=== PATIENT | female | born 1980 | race Caucasian/White ===

== ENCOUNTER 2017-05-03 11:32 | Emergency (ER) | payer MEDICAID, SELFPAY ==
[2017-05-03 11:33] VITALS: BP 118/75; PULSE 75; RESP 16; TEMP 36.8; O2SAT 98; BMI 30.2
--- NOTE | 2017-05-03 11:46 | RAD_ITS ---
STUDY: X-RAY - RIGHT FOOT CLINICAL: Female, 36 years old. Blunt trauma to the metatarsals. TECHNIQUE: view(s) of the foot. COMPARISON: None. FINDINGS: Normal talus, calcaneus, and tarsal bones. The joint spaces are within normal limits. Normal metatarsi. Normal metatarsophalangeal joint of the great toe. There is a bipartite tibial sesamoid. Normal interphalangeal joint of the great toe. Normal phalanges of the great toe. Normal second through fifth metatarsophalangeal joints. Normal interphalangeal joints and phalanges of the lesser toes. The soft tissue structures are unremarkable. There is no demonstrated fracture. RAD/Foot min 3 Views IMPRESSION: No radiographic evidence of acute fracture. If there is still clinical concern for acute fracture, follow-up radiographs in 7-10 days maybe helpful in evaluating a healing radiographically occult fracture. Electronically Signed: Galilea Cervantes MD at 12:56 EST , Service support ,
--- NOTE | 2017-05-03 13:10 | ED.DCSUM_ITS ---
- ER Visit Summary Date of Service: 05/03/17 Chief Complaint: [Injury right foot] History of Present Illness: The patient is a 36 F [presents to the emergency department with an injury to her right foot that occurred last evening. Patient states that a large glass coffee table fell over onto her right foot. Patient had a hard time bearing weight secondary to pain.] Physical Examination: [Foot-patient has some soft tissue swelling over the proximal dorsal aspect of the foot. There is some faint erythema and soft tissue swelling. No obvious deformity. Patient is neurovascular intact distally. Patient has no pain about the ankle.] Test Results: [Rays of the right foot showed no fractures] Emergency Department Course and Treatment: Given an Mynor wrap and crutches.] Treatment Plan: [Advised to ice and elevate the extremity. Patient to use ibuprofen for discomfort.] Disposition: [Discharge to home in stable condition. Patient advised to follow- up with her primary care physician in 7-10 days as if she continues to have significant discomfort may require repeat x-ray at that time.] Impression: [Contusion right foot] This note was generated with [employer] dictation software. It may contain incorrect words, spelling, and punctuation that were not noted in review of the chart prior to signing ED Disposition - Plan for ED Patient: Chief Complaint: Lower Extremity Injury Referrals: Surendra Chavarria DO [Primary Care Provider] -
--- NOTE | 2017-05-03 13:10 | ED.DEP ---
ED Disposition - Plan for ED Patient: Chief Complaint: Lower Extremity Injury Instructions: ED Contusion Foot Referrals: Surendra Chavarria DO [Primary Care Provider] - 5-7 Days
[2017-05-03 13:29] VITALS: BP 126/75; PULSE 78; RESP 18; O2SAT 98
== END 2017-05-03 13:30 | disposition home or self-care (01) ==
PROVIDERS: Emergency Provider Emergency Medicine; Family Provider Preventive Medicine Occupational Medicine; PCP Preventive Medicine Occupational Medicine
DX: S90.31XA Contusion of right foot, initial encounter (principal); W20.8XXA Other cause of strike by thrown, projected or falling object, initial encounter; Y93.9 Activity, unspecified; Y92.89 Other specified places as the place of occurrence of the external cause; Y99.9 Unspecified external cause status
CPT/HCPCS: 73630; 99283

== ENCOUNTER 2017-06-18 20:43 | Emergency (ER) | payer MEDICAID, SELFPAY ==
[2017-06-18 20:44] VITALS: BP 124/74; PULSE 97; RESP 14; TEMP 37.3; O2SAT 97; BMI 30.9
[2017-06-18] MEDS: predniSONE 20 MG Tablet 60 MG PO (21:12)
[2017-06-18 21:15] VITALS: PULSE 100; RESP 16
[2017-06-18] MEDS: Ipratropium/Albuterol Sulfate 3 ML AMPUL.NEB INHALATION (21:15)
--- NOTE | 2017-06-18 21:28 | RAD_ITS ---
STUDY: X-RAY CHEST REASON FOR EXAM: Female, 36 years old. Cough and congestion. TECHNIQUE: 2 views COMPARISON: Prior chest radiograph of February 20, 2017. FINDINGS: The lungs are clear and expanded. There is no demonstrated pleural abnormality. Normal size heart. Normal mediastinum and ally. Normal visualized pulmonary arteries. Normal visualized aortic arch and descending thoracic aorta. Normal visualized thoracic spine. Normal visualized ribs, clavicles, and shoulders. There is no demonstrated abnormality of the visualized soft tissue structures of the upper abdomen. RAD/Chest PA and Lateral IMPRESSION: Normal x-ray examination of the chest. Electronically Signed: Linda Lozano MD at 22:04 EDT , Service support ,
--- NOTE | 2017-06-18 21:42 | ED.DCSUM_ITS ---
- ER Visit Summary Date of Service: 06/18/17 Chief Complaint: Cough and runny nose History of Present Illness: The patient is a 36 F who underwent an EGD in [place] yesterday. She states that everything went fine. Today she woke up she had runny nose nasal congestion ear congestion and a cough which she states comes from her chest. She states she has a albuterol inhaler that she uses for asthma. No fevers. She states that it was not reported to her that she may have aspirated. The rhinorrhea is clear. Physical Examination: Afebrile vital signs are stable Gen: Well-nourished well-developed Head: Normocephalic atraumatic Eyes: Perrl EOMI ENT: TMs clear turbinate edema and clear rhinorrhea moist mucous membranes Neck: Supple no lymphadenopathy no JVD nontender CVS: Regular rate rhythm no murmurs normal S1-S2 Respiratory: No distress there is expiratory wheezing bilaterally chest nontender Abdomen: Soft nontender nondistended normal bowel sounds no masses Back: Nontender Extremity: Nontender no edema Skin: Normal color no rash Neuro: alert orientated ?3 CN II-XII intact normal strength sensation reflexes gait cerebellar Psych: Normal affect normal mood Test Results: Chest x-ray is negative for infiltrate Emergency Department Course and Treatment: Patient received a DuoNeb, prednisone. Patient will be discharged home with a burst of prednisone. She is to follow-up with her doctor. She is to use her inhaler. Return if worsening. I believe this to be a viral URI that has set off her asthma. I do not see any evidence of aspiration at this time. Impression: 1. Viral URI 2. Exacerbation of asthma This note was generated with [employer] dictation software. It may contain incorrect words, spelling, and punctuation that were not noted in review of the chart prior to signing ED Disposition - Plan for ED Patient: Disposition: Home or Assisted Living Chief Complaint: Cold Sx Instructions: ED Upper Resp Infec No Abx Tx, ED Wheezing Prescriptions: Prednisone [Deltasone] 60 mg PO DAILY #15 tab Referrals: Surendra Chavarria DO [Primary Care Provider] - 1 Week if not improving
[2017-06-18 22:14] VITALS: RESP 16
== END 2017-06-18 22:14 | disposition home or self-care (01) ==
LOC: ED 21:44
PROVIDERS: Emergency Provider Emergency Medicine; Family Provider Preventive Medicine Occupational Medicine; PCP Preventive Medicine Occupational Medicine
DX: J06.9 Acute upper respiratory infection, unspecified (principal); J45.901 Unspecified asthma with (acute) exacerbation; K21.9 Gastro-esophageal reflux disease without esophagitis
CPT/HCPCS: 71046; 94640; 99283

== ENCOUNTER 2018-04-13 15:27 | Emergency (ER) | payer OTHER, MEDICAID, SELFPAY ==
[2018-04-13 15:28] VITALS: BP 137/79; PULSE 102; RESP 16; TEMP 36.7; O2SAT 96; BMI 32.2
[2018-04-13] MEDS: Smz/Tmp Ds Tablet 1 TABLET PO (15:44)
[2018-04-13] MEDS: Naproxen 500 MG Tablet PO (15:44)
--- NOTE | 2018-04-13 15:44 | ED.DCSUM_ITS ---
- ER Visit Summary Date of Service: 04/13/18 Chief Complaint: Abscess right axilla History of Present Illness: The patient is a 37 F with an abscess to the right axilla for the past 2 days. No spontaneous drainage. Patient does state she had multiple abscesses to the right axilla approximately 2 months ago. She went to the [facility]. Sample confirmed MRSA and she was treated with Bactrim. I&D was not performed at that time. Past history significant for GERD. She does have noted allergies to penicillin and clindamycin. Physical Examination: Vital signs unremarkable. Patient sitting upright in bed no acute distress. Head neck examination unremarkable. Heart is regular rate and rhythm. Lung sounds are clear. Abdomen is soft nontender. Skin examination was a 2 x 4 similar abscess to the right axilla. No spontaneous drainage. Test Results: [] Emergency Department Course and Treatment: Patient is given Naprosyn and Bactrim. 1 cc lidocaine was infused locally to the abscess. A stab wound was made with a #11 blade. There is return of purulent material. Loculations are broken up with curved hemostats. Wound is washed and cleansed and dressing is applied. Wound care is discussed. Should be treated with a course of Bactrim. She will be referred to Dr. Ochoa if she keeps getting recurrent abscesses. Treatment Plan: [] Disposition: Discharge Impression: Right axillary abscess status post I&D This note was generated with [employer] dictation software. It may contain incorrect words, spelling, and punctuation that were not noted in review of the chart prior to signing ED Disposition - Plan for ED Patient: Chief Complaint: Abscess Referrals: Surendra Chavarria DO [Primary Care Provider] -
--- NOTE | 2018-04-13 16:03 | ED.DEP ---
ED Disposition - Plan for ED Patient: Disposition: Home or Assisted Living Chief Complaint: Abscess Instructions: ED Abscess IandD Prescriptions: Naproxen [Naprosyn] 500 mg PO BID PRN PRN #20 tablet PRN Reason: Pain Smz/Tmp Ds [Bactrim Ds] 1 tablet PO BID #20 tablet Referrals: Surendra Chavarria DO [Primary Care Provider] - 1-2 Weeks George Ochoa MD [STAFF PHYSICIAN] - As Needed
[2018-04-13 16:09] VITALS: RESP 12
--- OUTSIDE RECORDS SUMMARY | 2018-06-16 04:08 | XMS RPT_ITS ---
:1980 Author Organization OH[facility] Care Team Providers Name Role Phone AFUA ANÍBALLUCY CARTER Attending Unavailable MICHAEL CHAVARRIA Referring Unavailable KASSANDRA PARKS (SINGLE STROKE PREFORMER) Attending Unavailable KASSANDRA PARKS (SINGLE STROKE PREFORMER) Referring Unavailable KASSANDRA PARKS (SINGLE STROKE PREFORMER) Attending Unavailable KASSANDRA PARKS (SINGLE STROKE PREFORMER) Referring Unavailable AFUA, ANÍBAL NABI Attending Unavailable AFUA, ANÍBAL NABI Referring Unavailable Michael Chavarria Primary Care Unavailable Jaclyn Guerrero Attending Unavailable Michael Chavarria Primary Care Unavailable Joaquín Sousa Attending Unavailable Michael Chavarria Primary Care Unavailable Chaz Coats Attending Unavailable ASSESSMENT, HEALTH RISK Attending Unavailable Michael Chavarria Primary Care Unavailable PROVIDER, ED PHYSICIAN Attending Unavailable Michael Chavarria Primary Care Unavailable ASSESSMENT, HEALTH RISK Attending Unavailable Michael Chavarria Primary Care Unavailable PROBLEMS PROBLEMS DATE TYPE CONDITION / CODE ATTENDING STATUS SOURCE 06/17/2017 Active Gastro-esophageal AFUA, ANÍBAL Active [facility] reflux disease NABI [place] without Repository esophagitis / K21.9(ICD-10) 06/12/2017 Active Nonscarring hair NA Active [facility] loss, unspecified [place] / L65.9(ICD-10) Repository 06/12/2017 Active Irregular NA Active [facility] menstruation, [place] unspecified / Repository N92.6(ICD-10) 06/05/2017 Active Pelvic and NA Active [facility] perineal pain / [place] R10.2(ICD-10) Repository PROCEDURES PROCEDURES No Procedure Records FoundRESULTS RESULTS EMERGENCY DEPARTMENT Observed: 04/13/2018 Status: F Source: [place] SUMMARY 10:11 PM [facility] [place] [facility] Medical Records Department [address] [place] [id number] Emergency Department Summary 04/13/18 1543 MR#: [id number] Acct: [id number] Name: CARMELITAJACLYN TERRA Rep #: [id number] : 1980 37 From: Jaclyn Guerrero MD PCP: Michael Chavarria DO Status: DEP ER - ER Visit Summary Date of Service: 04/13/18 Chief Complaint: Abscess right axilla History of Present Illness: The patient is a 37 F with an abscess to the right axilla for the past 2 days. No spontaneous drainage. Patient does state she had multiple abscesses to the right axilla approximately 2 months ago. She went to the [facility]. Sample confirmed MRSA and she was treated with Bactrim. I AND D was not performed at that time. Past history significant for GERD. She does have noted allergies to penicillin and clindamycin. Physical Examination: Vital signs unremarkable. Patient sitting upright in bed no acute distress. Head neck examination unremarkable. Heart is regular rate and rhythm. Lung sounds are clear. Abdomen is soft nontender. Skin examination was a 2 x 4 similar abscess to the right axilla. No spontaneous drainage. Test Results: [] Emergency Department Course and Treatment: Patient is given Naprosyn and Bactrim. 1 cc lidocaine was infused locally to the abscess. A stab wound was made with a #11 blade. There is return of purulent material. Loculations are broken up with curved hemostats. Wound is washed and cleansed and dressing is applied. Wound care is discussed. Should be treated with a course of Bactrim. She will be referred to Dr. Ochoa if she keeps getting recurrent abscesses. Treatment Plan: [] Disposition: Discharge Impression: Right axillary abscess status post I AND D This note was generated with Carlypso dictation software. It may contain incorrect words, spelling, and punctuation that were not noted in review of the chart prior to signing ED Disposition - Plan for ED Patient: Chief Complaint: Abscess Referrals: Michael Chavarria DO [Primary Care Provider] - What to do if you have Problems For any increased pain, shortness of breath, bleeding, nausea or vomiting, chest pain, or any unexpected problems, contact your Primary Care Provider. Call [facility] ([phone]) or report to the closest Emergency Room. Call 911 if necessary. 04/13/18 1727 <Electronically signed by Jaclyn Guerrero MD> Date Jaclyn Guerrero MD Cosigner Signature (If Indicated): Date CC: Michael Chavarria DO DISCHARGE INSTRUCTION Observed: 04/13/2018 Status: F Source: [place] 4:04 PM [facility] [place] [facility] Medical Records Department [address] [place] [address] Discharge Instruction 04/13/18 1603 MR#: [id number] Acct: [id number] Name: JACLYN THOMPSON Rep #: [id number] : 1980 37 From: Jaclyn Guerrero MD PCP: Michael Chavarria DO Status: PRE ER ED Disposition - Plan for ED Patient: Disposition: Home or Assisted Living Chief Complaint: Abscess Instructions: ED Abscess IandD Prescriptions: Naproxen [Naprosyn] 500 mg PO BID PRN PRN #20 tablet PRN Reason: Pain Smz/Tmp Ds [Bactrim Ds] 1 tablet PO BID #20 tablet Referrals: Michael Chavarria DO [Primary Care Provider] - 1-2 Weeks George Ochoa MD [STAFF PHYSICIAN] - As Needed What to do if you have Problems For any increased pain, shortness of breath, bleeding, nausea or vomiting, chest pain, or any unexpected problems, contact your Primary Care Provider. Call [facility] ([phone]) or report to the closest Emergency Room. Call 911 if necessary. 04/13/18 1604 <Electronically signed by Jaclyn Guerrero MD> Date Jaclyn Guerrero MD Cosigner Signature (If Indicated): Date CC: Michael Chavarria DO WOUND Observed: 02/10/2018 Status: F Source: [place] CULTURE/STAIN 8:00 PM [facility] REPOSITORY Sp. Request/Comment: - Swab Smear Result - No organisms seen Few Polymorphonuclear leukocytes Few Mononuclear cells Culture Result - Moderate Methicillin resistant Staphylococcus aureus --> ABNORMAL ALERT ORGANISM: Methicillin resistant Staphylococcus aureus METHOD: Minimum inhibitory concentration(Vitek) Antibiotic Interp SRINIVAS Status Erythromycin RESISTANT >=8 F Clindamycin SUSCEPTIBLE 0.25 F Testing for inducible clindamycin resistance was performed. Tetracycline SUSCEPTIBLE <=1 F Vancomycin SUSCEPTIBLE 1 F Oxacillin RESISTANT >=4 F Oxacillin resistant staphylococci are resistant to all beta lactam antibiotics (except new cephalosporins with anti MRSA activity). Trimeth sulfameth SUSCEPTIBLE <=10 F Gentamicin SUSCEPTIBLE <=0.5 F Rifampin SUSCEPTIBLE <=0.5 F Rifampin should not be used alone for antimicrobial therapy. Daptomycin SUSCEPTIBLE 0.5 F Linezolid SUSCEPTIBLE 2 F Doxycycline SUSCEPTIBLE <=0.5 F Performed By: #### WCUL #### [facility] [address] [place], [place] [address] PROGRESS Observed: 02/10/2018 Status: COMPLETED Source: [place] 7:15 PM [facility] REPOSITORY HNO ID: [id number] Author: Todd (Job Placement Counselor) Service: (none) Author Type: Nurse Practitioner Type: Progress Notes Filed: 02/10/2018 8:18 PM Note Text: Subjective HPI Jaclyn Thompson is a 37 year old female who presents today for CC of right axillary abscess, has drained at few spots. This started 1 week ago. Has tried opening lesion with tweezers. Symptoms are worsened by nothing known. No hx of this in past. 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 .Patient presents with: Derm Problem: right axillary abscess, red and painful x 1 week PAST MEDICAL HISTORY Diagnosis Date - Abdominal pain, epigastric - Acute gastritis without mention of hemorrhage - Anemia - Anxiety disorder in conditions classified elsewhere - Chronic cholecystitis - FRACTURE AGE 10 WRIST,FALL ON ICE - GERD (gastroesophageal reflux disease) - Helicobacter pylori (H. 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 ketotifen fumarate (ZADITOR) 0.025 % (0.035 %) ophthalmic solution pantoprazole DR (PROTONIX) 40 mg tablet Take 1 tablet by mouth daily before breakfast. Take on empty stomach, 1/2 hr before meal. citalopram (CELEXA) 40 mg tablet Take 1 tablet by mouth once daily. albuterol HFA (VENTOLIN HFA) 90 mcg/actuation inhaler Inhale 2 Puffs as instructed every 4 hours as needed. fluticasone (FLOVENT HFA) 110 mcg/actuation inhaler Inhale 1 Puff as instructed twice daily. LORazepam (ATIVAN) 0.5 mg tab Take 1 tablet by mouth three times daily as needed (anxiety). EPINEPHrine (EPIPEN) 0.3 mg/0.3 mL (1:1,000) atIn Inject intramuscularly. use as directed for allergic reaction. Seek emergent medical care immediately after use. HYDROcodone-acetaminophen (NORCO) 5-325 mg per tablet HYDROcodone-Acetaminophen (HYCET) 7.5-325 mg/15 mL oral liquid dicyclomine (BENTYL) 10 mg capsule Take 1 capsule by mouth before meals and at bedtime. FAMILY HISTORY Problem Relation Age of Onset - Arthritis Father - Hypertension Father - Lipids Father - Arthritis Maternal Grandmother - Diabetes Maternal Grandmother - Diabetes Maternal Grandfather - Heart Paternal Grandmother - Psychiatry Paternal Grandfather - Diabetes Paternal Grandfather - Prostate Cancer Paternal Grandfather - Heart Paternal Uncle - other (ADD) Daughter - other (ADHD) Son Social History Substance Use Topics - Smoking status: Former Smoker Quit date: 12/17/2005 - Smokeless tobacco: Never Used Comment: quit one year ago - Alcohol use Yes Comment: Seldom, NOT DURING Review of Systems Constitutional: Negative for chills and fever. Skin: Negative for itching and rash. Objective Blood pressure 120/72, pulse 70, temperature 36.8 ?C (98.3 ?F), temperature source Tympanic, resp. rate 16, weight 89.8 kg (198 lb). Procedure: Incision and Drainage. Risks and benefits of the procedure were discussed including pain, bleeding, and failure to successfully drain the abscess. The patient's father understands these risks and wishes to proceed. Site cleansed with isopropyl alcohol pads/iodine No anesthesia used. #11 blade used to make stab incision. small amount of bloody/creamy drainage expressed from the wound. Hemostasis with short pressure applied. Dressed with adhesive bandage. Physical Exam Constitutional: She is oriented to person, place, and time and well-developed, well-nourished, and in no distress. Non-toxic appearance. She does not have a sickly appearance. No distress. HENT: Head: Normocephalic and atraumatic. Pulmonary/Chest: Effort normal. No accessory muscle usage. No respiratory distress. Neurological: She is alert and oriented to person, place, and time. Skin: She is not diaphoretic. ASSESSMENT/PLAN: 1. Axillary abscess - ICD9: 682.3, ICD10: L02.419 -carbuncle vs hydradenitis suppurativa - Begin treatment with doxycycline - No lymphangetic streaking, this was defined for patient to watch for and to seek medical care immediately if appears - Follow up for recheck in three days with pcp for recheck -keep I and D area clean and covered - WOUND CULTURE AND GRAM STAIN - DOXYCYCLINE MONOHYDRATE 100 MG TABLET Prescription instructions reviewed with patient as applicable. Patient advised if symptoms do not improve or if symptoms worsen sooner, to contact the office for further evaluation by their primary care physician. Potential red flag symptoms discussed with the patient. Reviewed appropriate action plan to take if red flag symptoms occur. Patient agreeable to treatment plan. Todd Alvarez APRN.SARKIS CNOV Observed: 02/10/2018 Status: COMPLETED Source: [place] 7:15 PM [facility] REPOSITORY Office Visit (WSTR) JACLYN THOMPSON ([id number]) 1980 F Date Time Provider Department 02/10/18 7:15 PM TODD ALVAREZ (SARKIS) [facility] During your visit today, we recorded the following information about you: Temperature Pulse Respiration Blood pressure 98.3 degrees 70/minute 16/minute 120/72 Weight 89.8 kg Todd AlvarezJESSE.SINGLE STROKE PREFORMER 02/10/2018 8:18 PM Signed Subjective HPI Jaclyn Thompson is a 37 year old female who presents today for CC of right axillary abscess, has drained at few spots. This started 1 week ago. Has tried opening lesion with tweezers. Symptoms are worsened by nothing known. No hx of this in past. 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 .Patient presents with: Derm Problem: right axillary abscess, red and painful x 1 week PAST MEDICAL HISTORY Diagnosis Date - Abdominal pain, epigastric - Acute gastritis without mention of hemorrhage - Anemia - Anxiety disorder in conditions classified elsewhere - Chronic cholecystitis - FRACTURE AGE 10 WRIST,FALL ON ICE - GERD (gastroesophageal reflux disease) - Helicobacter pylori (H. 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 ketotifen fumarate (ZADITOR) 0.025 % (0.035 %) ophthalmic solution pantoprazole DR (PROTONIX) 40 mg tablet Take 1 tablet by mouth daily before breakfast. Take on empty stomach, 1/2 hr before meal. citalopram (CELEXA) 40 mg tablet Take 1 tablet by mouth once daily. albuterol HFA (VENTOLIN HFA) 90 mcg/actuation inhaler Inhale 2 Puffs as instructed every 4 hours as needed. fluticasone (FLOVENT HFA) 110 mcg/actuation inhaler Inhale 1 Puff as instructed twice daily. LORazepam (ATIVAN) 0.5 mg tab Take 1 tablet by mouth three times daily as needed (anxiety). EPINEPHrine (EPIPEN) 0.3 mg/0.3 mL (1:1,000) atIn Inject intramuscularly. use as directed for allergic reaction. Seek emergent medical care immediately after use. HYDROcodone-acetaminophen (NORCO) 5-325 mg per tablet HYDROcodone-Acetaminophen (HYCET) 7.5-325 mg/15 mL oral liquid dicyclomine (BENTYL) 10 mg capsule Take 1 capsule by mouth before meals and at bedtime. FAMILY HISTORY Problem Relation Age of Onset - Arthritis Father - Hypertension Father - Lipids Father - Arthritis Maternal Grandmother - Diabetes Maternal Grandmother - Diabetes Maternal Grandfather - Heart Paternal Grandmother - Psychiatry Paternal Grandfather - Diabetes Paternal Grandfather - Prostate Cancer Paternal Grandfather - Heart Paternal Uncle - other (ADD) Daughter - other (ADHD) Son Social History Substance Use Topics - Smoking status: Former Smoker Quit date: 12/17/2005 - Smokeless tobacco: Never Used Comment: quit one year ago - Alcohol use Yes Comment: Seldom, NOT DURING Review of Systems Constitutional: Negative for chills and fever. Skin: Negative for itching and rash. Objective Blood pressure 120/72, pulse 70, temperature 36.8 ?C (98.3 ?F), temperature source Tympanic, resp. rate 16, weight 89.8 kg (198 lb). Procedure: Incision and Drainage. Risks and benefits of the procedure were discussed including pain, bleeding, and failure to successfully drain the abscess. The patient's father understands these risks and wishes to proceed. Site cleansed with isopropyl alcohol pads/iodine No anesthesia used. #11 blade used to make stab incision. small amount of bloody/creamy drainage expressed from the wound. Hemostasis with short pressure applied. Dressed with adhesive bandage. Physical Exam Constitutional: She is oriented to person, place, and time and well-developed, well-nourished, and in no distress. Non-toxic appearance. She does not have a sickly appearance. No distress. HENT: Head: Normocephalic and atraumatic. Pulmonary/Chest: Effort normal. No accessory muscle usage. No respiratory distress. Neurological: She is alert and oriented to person, place, and time. Skin: She is not diaphoretic. ASSESSMENT/PLAN: 1. Axillary abscess - ICD9: 682.3, ICD10: L02.419 -carbuncle vs hydradenitis suppurativa - Begin treatment with doxycycline - No lymphangetic streaking, this was defined for patient to watch for and to seek medical care immediately if appears - Follow up for recheck in three days with pcp for recheck -keep I and D area clean and covered - WOUND CULTURE AND GRAM STAIN - DOXYCYCLINE MONOHYDRATE 100 MG TABLET Prescription instructions reviewed with patient as applicable. Patient advised if symptoms do not improve or if symptoms worsen sooner, to contact the office for further evaluation by their primary care physician. Potential red flag symptoms discussed with the patient. Reviewed appropriate action plan to take if red flag symptoms occur. Patient agreeable to treatment plan. JANICE Wylie APRN.CNP 02/10/2018 7:40 PM Signed ASSESSMENT/PLAN: 1. Axillary abscess - ICD9: 682.3, ICD10: L02.419 - Begin treatment with doxycycline - No lymphangetic streaking, this was defined for patient to watch for and to seek medical care immediately if appears - Follow up for recheck in three days with pcp for recheck - WOUND CULTURE AND GRAM STAIN - DOXYCYCLINE MONOHYDRATE 100 MG TABLET Referring Provider: SELF [200] Allergies As of Date: 02/10/2018 Noted Allergy Reaction CLINDOMYCIN (CLINDAMYCIN) 07/10/2009 12 - Shortness of Breath PENICILLINS 11/30/2004 12 - Shortness of Breath Date Reviewed: 02/10/2018 Reviewed by: Todd (Sarkis) - Fully Assessed Reason for Visit: Derm Problem [33] Cmt: right axillary abscess, red and painful x 1 week Primary Visit Diagnosis:Axillary abscess [L02.419] Order(s):WOUND CULTURE AND GRAM STAIN [SQWCUL] Order #: [id number] doxycycline monohydrate 100 mg tabletTake 1 tablet by mouth twice daily for 10 days.Disp: 20 tabletRfl: 0 Prescriptions as of 02/10/2018 Sig: DROSPIRENONE 3 MG-ETHINYL EST* Take 1 tablet by mouth once d* KETOTIFEN 0.025 % (0.035 %) E* PANTOPRAZOLE 40 MG TABLET,DEL* Take 1 tablet by mouth daily * CITALOPRAM 40 MG TABLET Take 1 tablet by mouth once d* ALBUTEROL SULFATE HFA 90 MCG/* Inhale 2 Puffs as instructed * FLUTICASONE 110 MCG/ACTUATION* Inhale 1 Puff as instructed t* LORAZEPAM 0.5 MG TABLET Take 1 tablet by mouth three * EPINEPHRINE 0.3 MG/0.3 ML INJ* Inject intramuscularly. use * DOXYCYCLINE MONOHYDRATE 100 M* Take 1 tablet by mouth twice * HYDROCODONE 5 MG-ACETAMINOPHE* HYDROCODONE 7.5 MG-ACETAMINOP* DICYCLOMINE 10 MG CAPSULE Take 1 capsule by mouth befor* Patient not taking: Reported on 02/10/2018 Problem List As Of Date 02/10/2018 Noted Resolved Anxiety state, unspecified [F41.1] INVALID FOR*07/06/2012 More... 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 Depressive disorder, not elsewhere classified [*INVALID FOR* More... Carpal tunnel syndrome on right [G56.01] INVALID FOR*07/12/2011 Panic attacks [F41.0] INVALID FOR* Supervision of other normal [Z34.80] INVALID FOR*04/10/2012 Rh negative status during [O09.899, Z*INVALID FOR*04/10/2012 FHx: cleft palate [Z82.79] INVALID FOR*07/06/2012 More... GBS (group B streptococcus) UTI complicating pr*INVALID FOR*04/10/2012 First trimester bleeding [O20.9] INVALID FOR*07/06/2012 More... Nausea and vomiting in [O21.9] INVALID FOR*07/06/2012 More... History of labor [Z87.51] INVALID FOR*06/12/2017 More... Family history of defects [Z82.79] INVALID FOR* More... Rh negative status during [O09.899, Z*INVALID FOR*06/12/2017 More... Patient requested diagnostic testing [Z01.89] INVALID FOR* More... Varicose veins [I83.90] INVALID FOR* More... History of hemorrhage, currently pre*INVALID FOR*06/12/2017 More... Inguinal hernia [K40.90] INVALID FOR* Other instructions from your clinician: ASSESSMENT/PLAN: 1. Axillary abscess - ICD9: 682.3, ICD10: L02.419 - Begin treatment with doxycycline - No lymphangetic streaking, this was defined for patient to watch for and to seek medical care immediately if appears - Follow up for recheck in three days with pcp for recheck - WOUND CULTURE AND GRAM STAIN - DOXYCYCLINE MONOHYDRATE 100 MG TABLET Prescriptions ordered this encounter Disp Refills Start End DOXYCYCLINE MONOHYDRATE 100 MG TABLET 20 t* 0 02/10/2018 02/20/2018 Cmt: May transfer to [facility] if less expensive. Route: ORAL Sig: Take 1 tablet by mouth twice daily for 10 days. Encounter Status:Closed by TODD ALVAREZ CNP on 02/10/18 [employer], EMPLOYEE Collected: 11/27/2017 Status: F Source: [place] 11:19 AM [facility] [place] TYPE CODE TESTS RESULT OUT OF RANGE REFERENCE UNITS LAB L100.1000 4.4-11.0 K/mm3 Normal WBC 7.1 LAB L100.1200 4.2-5.4 M/mm3 Normal RBC 4.33 LAB L100.1300 12.0-15.0 g/dl Normal HGB 12.7 LAB L100.1400 37-47 % Normal HCT 39.0 LAB L100.1500 81-99 fL Normal MCV 90.1 LAB L100.1600 27.0-32.0 pg Normal MCH 29.3 LAB L100.1700 32-36 g/gl Normal MCHC 32.6 LAB L100.1810 11.6-14.6 % Normal RDW CV 12.6 LAB L100.1820 35.1-43.9 fl Normal RDW SD 41.3 LAB L100.1900 150-450 K/mm3 Normal PLT 316 LAB L100.2000 6.2-12.0 fl Normal MPV 9.0 LAB L100.2110 47-70 % Normal NEUT% 56.1 LAB L100.2210 19-41 % Normal LY% 29.8 LAB L100.2310 0-10 % Normal MONO% 6.9 LAB L100.2410 0-5 % High EO% 6.5 LAB L100.2510 0-1 % Normal BASO% 0.6 LAB L100.2620 2.0-7.7 X10 3/uL Normal Absolute Neut 4.0 LAB L100.2720 0.83-4.51 X10 3/ul Normal Absolute Lymph 2.11 Performed By: #### L100.0200 #### [facility] [address] [place], [place], [id number] URINALYSIS, EMPLOYEE Collected: 11/27/2017 Status: F Source: [place] 11:19 AM [facility] [place] TYPE CODE TESTS RESULT OUT OF RANGE REFERENCE UNITS LAB L400.3000 Yellow COLOR Normal Yellow LAB L400.3050 Clear Normal CLARITY Clear LAB L400.3200 Normal mg/dl Normal GLUCOSE, UR Normal LAB L400.3300 Negative mg/dL Normal BILIRUBIN URINE Negative LAB L400.3400 Negative mg/dl Normal KETONE UR Negative LAB L400.3465 1.002-1.030 Normal SP.GR. DIPSTX 1.020 LAB L400.3550 5.0 - 8.0 pH UR Normal 5.0 LAB L400.3600 Negative mg/dl PROT Normal DIPSTX Negative LAB L400.3700 Normal mg/dl Normal UROBILI Normal LAB L400.3750 Negative Normal NITRITE UR Negative LAB L400.3780 Negative /ul High 10 OCCULT BLOOD-UR LAB L400.3800 Negative /ul LEUK Normal ESTERASE Negative Performed By: #### L400.0100 #### [facility] [address] [place], [address] EMPLOYEE PROFILE Collected: 11/27/2017 Status: F Source: [place] 11:19 AM [facility] [place] TYPE CODE TESTS RESULT OUT OF RANGE REFERENCE UNITS LAB L501.0100 74-106 mg/dL Normal GLU 87 Result Comment: Please note revised GLUCOSE reference range effective 2017. LAB L501.1000 7-18 mg/dL Normal BUN 18 LAB L501.1100 0.55-1.02 mg/dL Normal CREAT,SERUM 0.67 Result Comment: The validity of the calculated GFR AND GFRAA in patients over 70 years has not been determined. Clinical correlation is essential. LAB L501.1110 >60 mL/min Normal EST GFR 106 Result Comment: Non- GFR Calc LAB L501.1115 >60 mL/min Normal EST GFR - AA 128 Result Comment: GFR Calc LAB L501.1300 10-20 RATIO High BUN/CRE 26.7 LAB L501.1400 2.6-6.0 mg/dL Normal URIC 3.7 Result Comment: The drugs N-Acetylcysteine and Metamizole may falsely depress this assay. LAB L501.1500 6.4-8.2 g/dL Normal T PROT 7.3 LAB L501.1800 3.2-5.0 g/dL Normal ALB 3.3 LAB L501.1950 2.2-4.2 g/dL Normal GLOB 4.0 LAB L501.2000 0.9-2.4 RATIO Low A/G 0.8 LAB L501.2200 8.5-10.1 mg/dL Normal CA 8.6 LAB L501.2300 2.5-4.9 mg/dL Normal PHOS 3.1 LAB L501.4100 15-37 U/L Normal AST 18 LAB L501.4305 45-117 U/L Normal ALK P 100 LAB L501.4405 13-56 U/L Normal ALT 31 LAB L501.4600 0.20-1.00 mg/dL Normal T BILI 0.30 LAB L501.4700 0.00-0.30 mg/dL Normal D BILI 0.08 LAB L501.4900 200 mg/dL Normal CHOL 168 Result Comment: <200 mg/dL Desirable 200-240 mg/dL Borderline >240 mg/dL High Risk LAB L501.5000 mg/dL Normal TRIG 36 Result Comment: The drugs N-Acetylcysteine and Metamizole may falsely depress this assay. Serum Triglycerides Reference Interval Normal <150 mg/dL Borderline high 150 - 199 mg/dL High 200 - 499 mg/dL Very High > or = 500 mg/dL LAB L501.5300 136-145 mmol/L Normal NA 143 LAB L501.5600 3.5-5.1 mmol/L Normal K 4.5 LAB L501.5900 98-107 mmol/L High CL 109 LAB L501.6100 21.0-32.0 mmol/L Normal CO2 27.0 LAB L501.6200 5-15 Normal 7 GAP LAB L501.6400 mg/dL Normal HDL 55 Result Comment: The drugs N-Acetylcysteine and Metamizole may falsely depress this assay. Reference Range HDL <40 mg/dL Low HDL Cholesterol HDL >or= 60 mg/dL High HDL Cholesterol LAB L501.6475 Normal CHOL:HDL 3.10 LAB L501.6500 0-130 mg/dL Normal LDL 106 LAB L501.6600 5-40 mg/dL Normal VLDL 7 LAB L504.2610 84-246 U/L Normal LDH 158 Performed By: #### L500.2900 #### [facility] [address] [place], [address] NICOTINE URINE DRUG Collected: 11/27/2017 Status: F Source: [place] SCREEN 11:19 AM [facility] [place] CODE TESTS RESULT OUT OF RANGE REFERENCE UNITS LAB L505.6250 TO BE Normal CONFIRMED Result Comment: CONFIRMATORY TESTING FOR ALL POSITIVE URINE DRUG SCREEN RESULTS WILL ONLY BE SENT OUT UPON PHYSICIAN ORDER. The results of Urine Drug Screen methods provide only preliminary analytical test results. A more specific alternate chemical method must be used in order to obtain a confirmed analytical result. Gas chromatography/mass spectrometery (GC/MS) is the preferred confirmatory method. Clinical consideration and professional judgement should be applied to any drug of abuse test result, particularly when preliminary positive results are used. LAB L505.6270 <200 ng/mL Normal COT DRG Negative SCREEN Result Comment: Cotinine is the first-stage metabolite of Nicotine. Performed By: #### L505.6240 #### [facility] [address] [place], [address] RUBELLA IGG [facility] Collected: 08/14/2017 Status: F Source: [place] EMPLOYEE 9:19 AM [facility] [place] CODE TESTS RESULT OUT OF RANGE REFERENCE UNITS LAB L509.4010 IU/mL Normal Rubella IgG 62.5 Result Comment: Antibody results Interpretation of Immune Status < 5 IU/ml Presumed Non-immune 5 - < 10 IU/ml Equivocal > or = 10 IU/ml Presumed Immune Performed By: #### L509.4010 #### [facility] [address] [place], [place], [id number] [facility] EMP RUBEOLA Collected: 08/14/2017 Status: F Source: [place] TITER 9:19 AM [facility] [place] CODE TESTS RESULT OUT OF RANGE REFERENCE UNITS LAB L3100.3400 Immune >29.9 AU/mL Normal RUBEOLA 38.7 Result Comment: Negative <25.0 Equivocal 25.0 - 29.9 Positive >29.9 Presence of antibodies to Rubeola is presumptive evidence of immunity except when acute infection is suspected. Performed at: - [facility] [id number] Burner Technician: Madhu Carrion PhD, Phone: [phone] Performed By: #### L3100.3400, L3400.1750 #### [facility] (refer to report for specific site) refer to report for address and phone number MUMPS ANTIBODY,IGG Collected: 08/14/2017 Status: F Source: [place] 9:19 AM [facility] [place] TYPE CODE TESTS RESULT OUT OF RANGE REFERENCE UNITS LAB L3400.1750 Immune >10.9 AU/mL Normal MUMPS,IgG 91.0 Result Comment: Negative <9.0 Equivocal 9.0 - 10.9 Positive >10.9 A positive result generally indicates past exposure to Mumps virus or previous vaccination. Performed By: #### L3100.3400, L3400.1750 #### [facility] (refer to report for specific site) refer to report for address and phone number EMERGENCY DEPARTMENT Observed: 06/21/2017 Status: F Source: [place] SUMMARY 4:17 PM [facility] [place] [facility] Medical Records Department [address] [place] [address] Emergency Department Summary 06/18/17 2139 MR#: [id number] Acct: [id number] Name: JACLYN THOMPSON Rep #: [id number] : 1980 36 From: Chaz Coats DO PCP: Michael Chavarria DO Status: DEP ER - ER Visit Summary Date of Service: 06/18/17 Chief Complaint: Cough and runny nose History of Present Illness: The patient is a 36 F who underwent an EGD in [place] yesterday. She states that everything went fine. Today she woke up she had runny nose nasal congestion ear congestion and a cough which she states comes from her chest. She states she has a albuterol inhaler that she uses for asthma. No fevers. She states that it was not reported to her that she may have aspirated. The rhinorrhea is clear. Physical Examination: Afebrile vital signs are stable Gen: Well-nourished well-developed Head: Normocephalic atraumatic Eyes: Perrl EOMI ENT: TMs clear turbinate edema and clear rhinorrhea moist mucous membranes Neck: Supple no lymphadenopathy no JVD nontender CVS: Regular rate rhythm no murmurs normal S1-S2 Respiratory: No distress there is expiratory wheezing bilaterally chest nontender Abdomen: Soft nontender nondistended normal bowel sounds no masses Back: Nontender Extremity: Nontender no edema Skin: Normal color no rash Neuro: alert orientated 3 CN II-XII intact normal strength sensation reflexes gait cerebellar Psych: Normal affect normal mood Test Results: Chest x-ray is negative for infiltrate Emergency Department Course and Treatment: Patient received a DuoNeb, prednisone. Patient will be discharged home with a burst of prednisone. She is to follow-up with her doctor. She is to use her inhaler. Return if worsening. I believe this to be a viral URI that has set off her asthma. I do not see any evidence of aspiration at this time. Impression: 1. Viral URI 2. Exacerbation of asthma This note was generated with AirPRation software. It may contain incorrect words, spelling, and punctuation that were not noted in review of the chart prior to signing ED Disposition - Plan for ED Patient: Disposition: Home or Assisted Living Chief Complaint: Cold Sx Instructions: ED Upper Resp Infec No Abx Tx, ED Wheezing Prescriptions: Prednisone [Deltasone] 60 mg PO DAILY #15 tab Referrals: Michael Chavarria DO [Primary Care Provider] - 1 Week if not improving What to do if you have Problems For any increased pain, shortness of breath, bleeding, nausea or vomiting, chest pain, or any unexpected problems, contact your Primary Care Provider. Call [facility] ([phone]) or report to the closest Emergency Room. Call 911 if necessary. 06/21/17 1617 <Electronically signed by Chaz Coats DO> Date Chaz Coats DO Cosigner Signature (If Indicated): Date CC: Michael Chavarria DO CHEST PA AND LATERAL Observed: 06/18/2017 Status: F Source: [place] 9:06 PM [facility] [place] [facility] Imaging Services [address] [place] [id number] Chest PA and Lateral MR#: [id number] Acct: [id number] Name: JACLYN THOMPSON Rep #: [id number] : 1980 F 36 From: Linda Lozano MD PCP: Michael Chavarria DO Status: REG ER Study: Chest PA and Lateral Date of Exam: 06/18/17 Exam# [id number] Ordering Dr: Chaz Coats DO STUDY: X-RAY CHEST REASON FOR EXAM: Female, 36 years old. Cough and congestion. TECHNIQUE: 2 views COMPARISON: Prior chest radiograph of February 20, 2017. FINDINGS: The lungs are clear and expanded. There is no demonstrated pleural abnormality. Normal size heart. Normal mediastinum and ally. Normal visualized pulmonary arteries. Normal visualized aortic arch and descending thoracic aorta. Normal visualized thoracic spine. Normal visualized ribs, clavicles, and shoulders. There is no demonstrated abnormality of the visualized soft tissue structures of the upper abdomen. RAD/Chest PA and Lateral IMPRESSION: Normal x-ray examination of the chest. Electronically Signed: Linda Lozano MD at 22:04 EDT , Service support , CC: Chaz Coats DO; Michael Chavarria DO Floor Broker: Signed SURGICAL PATHOLOGY Observed: 06/17/2017 Status: F Source: [place] 10:41 AM [facility] [place] REPOSITORY Specimen originated from [facility] Specimen #: [id number] Submitting Physician: ANÍBAL CAAL FINAL DIAGNOSIS 1. Antrum, biopsy (A) - Antral mucosa with no diagnostic alteration. - No morphologic evidence of Helicobacter pylori. 2. Esophagus, lower one-third, biopsy (B) - Squamous mucosa with no diagnostic alteration. - Negative for intraepithelial eosinophils. SR/gp 06/18/2017 Cayetano Romero MD, Ph.D. (Electronic Signature) SPECIMEN SUBMITTED A: ANTRUM, BIOPSY B: LOWER 1/3 OF ESOPHAGUS, BIOPSY CLINICAL DATA GERD A) R/O H. PYLORI GROSS DESCRIPTION A. Received in formalin are three pieces of rocha, soft tissue aggregating to 0.5 x 0.2 x 0.1 cm. Totally submitted in one cassette. B. Received in formalin are two pieces of rocha, soft tissue aggregating to 0.6 x 0.2 x 0.1 cm. Totally submitted in one cassette. Gross examination performed at [facility], [address] [place] [address] 06/18/2017 1:22:20 AM Date of Report: 06/19/2017 Date of Procedure: 06/17/2017 Date of Receipt: 06/17/2017 Submitted by: ANÍBAL CAAL Location: [facility] Diagnostic interpretation performed at [facility], [address] [place] [address]. HISTORY PHYSICAL Observed: 06/17/2017 Status: COMPLETED Source: [place] 10:17 AM [facility] REPOSITORY HNO ID: [id number] Author: Aníbal Caal Service: (none) Author Type: Physician Type: HANDP Filed: 06/17/2017 10:41 AM Note Text: HISTORY AND PHYSICAL Jaclyn Thompson, 36 year old female Current history and physical on file: No Is a new History and Physical required for today's visit? Yes Indication for procedure: GERD PROCEDURE(S) SCHEDULED FOR: EGD (Esophagogastroduodenoscopy) with or without biopsies, removal of polyps or lesions, dilation ( any means), treatment of bleeding ( any means), Barrx treatment of Jonnathan's Esophagus, image tube placement or cryo therapy treatment based on clinical findings. BASELINE BEHAVIOR: Calm BASELINE ORIENTATION: A AND O x3 All medications and allergies reviewed: Yes Skin Assessment: Warm dry muscus membranes pink Airway/Respiratory Assessment: Airway: visualization of the uvula- Yes Mouth: opening greater than 2 fingerbreadths- Yes Neck: full range of motion- Yes Breath sounds clear/equal- Yes Cardiac Assessment: Regular rate and rhythm without murmur Abdominal Assessment: Abdomen soft, non-tender, no masses or organomegaly. Sedation Plan: MAC Additional Comments: None Aníbal Caal MD FSH Collected: 06/12/2017 Status: F Source: [place] 4:17 PM [facility] REPOSITORY TYPE CODE TESTS RESULT OUT OF RANGE REFERENCE UNITS LAB FSH mU/mL FSH 7.1 Result Comment: Reference range: Follicular: 2-11 Midcycle: 10-30 Luteal: 1-9 Post Supriya: 20-100 Performed By: #### FSH, TSH, PROL #### [facility] [address] [id number] TSH Collected: 06/12/2017 Status: F Source: [place] 4:17 PM [facility] REPOSITORY TYPE CODE TESTS RESULT OUT OF RANGE REFERENCE UNITS LAB TSH 0.400-5.500 uU/mL TSH 2.620 Result Comment: If the patient is , TSH reference range varies by gestational period: First Trimester 0.100-2.500 uU/mL Second Trimester 0.200-3.000 uU/mL Third Trimester 0.300-3.000 uU/mL References: 1. Argueta L, Zohaib M, Fredrick SNOWDEN, et al. Management of Thyroid Dysfunction during and : An Endocrine Society Clinical Practice Guideline. J Clin Endocrinol Metab, 2012:97:0940-1754. 2. Fermin OWENS. Overview of thyroid disease in . UpToDate. 2016. Accessed on September 08, 2015. Performed By: #### FSH, TSH, PROL #### [facility] [address] [place], [place] [address] PROLACTIN Collected: 06/12/2017 Status: F Source: [place] 4:17 PM [facility] REPOSITORY TYPE CODE TESTS RESULT OUT OF REFERENCE UNITS RANGE LAB PROL 4.5-26.8 ng/mL Prolactin 11.6 Performed By: #### FSH, TSH, PROL #### [facility] [address] [place], [place] [address] PROGRESS Observed: 06/12/2017 Status: COMPLETED Source: [place] 3:46 PM [facility] REPOSITORY HNO ID: [id number] Author: Kassandra (Job Placement Counselor) JESSE Parks.SARKIS Service: (none) Author Type: Nurse Practitioner Type: Progress Notes Filed: 06/12/2017 4:30 PM Note Text: Jaclyn Thompson is a 36 year old female who presents for problem visit - multiple complaints. HPI: Jaclyn with the following complaints: No menses this months and last 3 menses only lasted 2 days; hair falling out, feels bloated, mood swings, hair on chin, anxiety, depression, lower back pain, weak arms and legs. States Dr Ro had agreed to perform hysterectomy and remove her left ovary in the past due to chronic pain. Concerned that many family members have low thyroid. Would like hormones checked because PCOS has been discussed in the past even though I have 5 kids. Accompanied by three children making it difficult to obtain full HPI and assess due to activity and volume in room. PAST MEDICAL HISTORY Diagnosis Date - Abdominal pain, epigastric - Acute gastritis without mention of hemorrhage - Anemia - Anxiety disorder in conditions classified elsewhere - Chronic cholecystitis - Esophageal reflux - FRACTURE AGE 10 WRIST,FALL ON ICE - Helicobacter pylori (H. 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 in [place] - DANDC, DIAG AND/OR THERAPEUTIC 2004 Dilation AND curettage, - EGD W/O [facility] SPECIMEN W/BX 05/22/07 - INSERT INTRAUTERINE DEVICE 11/2006 Mirena, Removed 05/17/2009 - IUD INSERTION (SPECIAL AGENT IN CHARGE DEPT)_*FL 05/17/2009 Paragard - LAP CHOLECYSTECT/CHOLANGIOGRAPHY 04/08/08 FAMILY HISTORY Problem Relation Age of Onset - Arthritis Father - Hypertension Father - Lipids Father - Arthritis Maternal Grandmother - Diabetes Maternal Grandmother - Diabetes Maternal Grandfather - Heart Paternal Grandmother - Psychiatry Paternal Grandfather - Diabetes Paternal Grandfather - Prostate Cancer Paternal Grandfather - Heart Paternal Uncle - ADD [OTHER] Daughter - ADHD [OTHER] Son Social History Marital status: Single Spouse name: Years of education: 12 Number of children: 3 Occupational History Occupation Employer Comment [employer] Social History Main Topics Smoking status: Former Smoker Packs/day: 0.00 Years: 0.00 Quit date: 12/17/2005 Smokeless status: Never Used Comment: quit one year ago Alcohol use: Yes Comment: Seldom, NOT DURING Drug use: No Sexual activity: Yes Partners with: Male Current Outpatient Prescriptions: HYDROcodone-acetaminophen (NORCO) 5-325 mg per tablet HYDROcodone-Acetaminophen (HYCET) 7.5-325 mg/15 mL oral liquid ketotifen fumarate (ZADITOR) 0.025 % (0.035 %) ophthalmic solution dicyclomine (BENTYL) 10 mg capsule Take 1 capsule by mouth before meals and at bedtime. pantoprazole DR (PROTONIX) 40 mg tablet Take 1 tablet by mouth daily before breakfast. Take on empty stomach, 1/2 hr before meal. citalopram (CELEXA) 40 mg tablet Take 1 tablet by mouth once daily. albuterol HFA (VENTOLIN HFA) 90 mcg/actuation inhaler Inhale 2 Puffs as instructed every 4 hours as needed. fluticasone (FLOVENT HFA) 110 mcg/actuation inhaler Inhale 1 Puff as instructed twice daily. LORazepam (ATIVAN) 0.5 mg tab Take 1 tablet by mouth three times daily as needed (anxiety). EPINEPHrine (EPIPEN) 0.3 mg/0.3 mL (1:1,000) atIn Inject intramuscularly. use as directed for allergic reaction. Seek emergent medical care immediately after use. No current facility-administered medications for this visit. Allergies As of Date: 06/12/2017 Allergen Noted Reaction CLINDOMYCIN [CLINDAMYCIN] 07/10/2009 Shortness of Breath ENVIRONMENTAL ALLERGIES [OTHER] 12/01/2006 PENICILLINS 11/30/2004 Shortness of Breath SEASONAL ALLERGIES 10/15/2010 Other: See Comments SEAFOOD [OTHER] 12/01/2006 Fully Assessed 06/12/2017 REVIEW OF SYSTEMS Abdomen: see HPI. Bladder: No dysuria, gross hematuria, urinary frequency, urinary urgency, or incontinence. Allergies and current medication updated:Yes EXAM: BP 120/80 Wt 191 lb 3.2 oz (86.7kg) GENERAL: pleasant, female in no apparent distress HEENT: Normocephalic, atraumatic, mucus membranes moist and no lesions NECK: Supple, full range of motion, no adenopathy and thyroid normal DERMATOLOGY: Normal, without lesions, non-icteric and non-hirsute CHEST: Normal inspiratory effort ABDOMEN: soft and non-tender PELVIC: deferred BIMANUAL: deferred NEURO: alert and oriented x3,exam grossly non-focal ASSESSMENT/PLAN: 1. Irregular menstrual cycle - ICD9: 626.4, ICD10: N92.6 (primary diagnosis) - FSH BLD - PROLACTIN BLD - Pelvic US 06/05/17 - normal with follicles noted. - DROSPIRENONE 3 MG-ETHINYL ESTRADIOL 0.03 MG TABLET 2. Hair loss - ICD9: 704.00, ICD10: L65.9 - TSH BLD 3. Encounter for initial prescription of contraceptive pills - ICD9: V25.01, ICD10: Z30.011 - discussed with patient on how to take OCP's. - counseled on benefits, risks and possible severe side effects of OCP's. - discussed need to use Condoms to help to prevent STD's including HIV etc. - DROSPIRENONE 3 MG-ETHINYL ESTRADIOL 0.03 MG TABLET Case reviewed with Dr Aviles prior to evaluating patient. Discussed with patient that hysterectomy will not improve symptoms. Agreeable to trying OCPs to regulate menses and lab tests. Follow-up 3 months. JANICE BenedictOV Observed: 06/12/2017 Status: COMPLETED Source: [place] 3:30 PM [facility] REPOSITORY Office Visit (WOOB) JACLYN THOMSPON ([id number]) 1980 F Date Time Provider Department 06/12/17 3:30 PM KASSANDRA PARKS (SARKIS) WOOB During your visit today, we recorded the following information about you: Blood pressure Weight 120/80 86.7 kg Kassandra Parks APRN.CNP, APRN.CNP 06/12/2017 4:30 PM Signed Jaclyn Stout Thompson is a 36 year old female who presents for problem visit - multiple complaints. HPI: Jaclyn with the following complaints: No menses this months and last 3 menses only lasted 2 days; hair falling out, feels bloated, mood swings, hair on chin, anxiety, depression, lower back pain, weak arms and legs. States Dr Ro had agreed to perform hysterectomy and remove her left ovary in the past due to chronic pain. Concerned that many family members have low thyroid. Would like hormones checked because ANDquot;PCOS has been discussed in the past even though I have 5 kidsANDquot;. Accompanied by three children making it difficult to obtain full HPI and assess due to activity and volume in room. PAST MEDICAL HISTORY Diagnosis Date - Abdominal pain, epigastric - Acute gastritis without mention of hemorrhage - Anemia - Anxiety disorder in conditions classified elsewhere - Chronic cholecystitis - Esophageal reflux - FRACTURE AGE 10 WRIST,FALL ON ICE - Helicobacter pylori (H. 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 in [place] - DANDamp;C, DIAG AND/OR THERAPEUTIC 2004 Dilation ANDamp; curettage, - EGD W/O [facility] SPECIMEN W/BX 05/22/07 - INSERT INTRAUTERINE DEVICE 11/2006 Mirena, Removed 05/17/2009 - IUD INSERTION (SPECIAL AGENT IN CHARGE DEPT)_*FL 05/17/2009 Paragard - LAP CHOLECYSTECT/CHOLANGIOGRAPHY 04/08/08 FAMILY HISTORY Problem Relation Age of Onset - Arthritis Father - Hypertension Father - Lipids Father - Arthritis Maternal Grandmother - Diabetes Maternal Grandmother - Diabetes Maternal Grandfather - Heart Paternal Grandmother - Psychiatry Paternal Grandfather - Diabetes Paternal Grandfather - Prostate Cancer Paternal Grandfather - Heart Paternal Uncle - ADD [OTHER] Daughter - ADHD [OTHER] Son Social History Marital status: Single Spouse name: Years of education: 12 Number of children: 3 Occupational History 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 [employer] Social History Main Topics Smoking status: Former Smoker Packs/day: 0.00 Years: 0.00 Quit date: 12/17/2005 Smokeless status: Never Used Comment: quit one year ago Alcohol use: Yes Comment: Seldom, NOT DURING Drug use: No Sexual activity: Yes Partners with: Male Current Outpatient Prescriptions: HYDROcodone-acetaminophen (NORCO) 5-325 mg per tablet HYDROcodone-Acetaminophen (HYCET) 7.5-325 mg/15 mL oral liquid ketotifen fumarate (ZADITOR) 0.025 % (0.035 %) ophthalmic solution dicyclomine (BENTYL) 10 mg capsule Take 1 capsule by mouth before meals and at bedtime. pantoprazole DR (PROTONIX) 40 mg tablet Take 1 tablet by mouth daily before breakfast. Take on empty stomach, 1/2 hr before meal. citalopram (CELEXA) 40 mg tablet Take 1 tablet by mouth once daily. albuterol HFA (VENTOLIN HFA) 90 mcg/actuation inhaler Inhale 2 Puffs as instructed every 4 hours as needed. fluticasone (FLOVENT HFA) 110 mcg/actuation inhaler Inhale 1 Puff as instructed twice daily. LORazepam (ATIVAN) 0.5 mg tab Take 1 tablet by mouth three times daily as needed (anxiety). EPINEPHrine (EPIPEN) 0.3 mg/0.3 mL (1:1,000) atIn Inject intramuscularly. use as directed for allergic reaction. Seek emergent medical care immediately after use. No current facility-administered medications for this visit. Allergies As of Date: 06/12/2017 Allergen Noted Reaction CLINDOMYCIN [CLINDAMYCIN] 07/10/2009 Shortness of Breath ENVIRONMENTAL ALLERGIES [OTHER] 12/01/2006 PENICILLINS 11/30/2004 Shortness of Breath SEASONAL ALLERGIES 10/15/2010 Other: See Comments SEAFOOD [OTHER] 12/01/2006 Fully Assessed 06/12/2017 REVIEW OF SYSTEMS Abdomen: see HPI. Bladder: No dysuria, gross hematuria, urinary frequency, urinary urgency, or incontinence. Allergies and current medication updated:Yes EXAM: BP 120/80 Wt 191 lb 3.2 oz (86.7kg) GENERAL: pleasant, female in no apparent distress HEENT: Normocephalic, atraumatic, mucus membranes moist and no lesions NECK: Supple, full range of motion, no adenopathy and thyroid normal DERMATOLOGY: Normal, without lesions, non-icteric and non-hirsute CHEST: Normal inspiratory effort ABDOMEN: soft and non-tender PELVIC: deferred BIMANUAL: deferred NEURO: alert and oriented x3,exam grossly non-focal ASSESSMENT/PLAN: 1. Irregular menstrual cycle - ICD9: 626.4, ICD10: N92.6 (primary diagnosis) - FSH BLD - PROLACTIN BLD - Pelvic US 06/05/17 - normal with follicles noted. - DROSPIRENONE 3 MG-ETHINYL ESTRADIOL 0.03 MG TABLET 2. Hair loss - ICD9: 704.00, ICD10: L65.9 - TSH BLD 3. Encounter for initial prescription of contraceptive pills - ICD9: V25.01, ICD10: Z30.011 - discussed with patient on how to take OCP's. - counseled on benefits, risks and possible severe side effects of OCP's. - discussed need to use Condoms to help to prevent STD's including HIV etc. - DROSPIRENONE 3 MG-ETHINYL ESTRADIOL 0.03 MG TABLET Case reviewed with Dr Aviles prior to evaluating patient. Discussed with patient that hysterectomy will not improve symptoms. Agreeable to trying OCPs to regulate menses and lab tests. Follow-up 3 months. Kassandra Parks APRN.SARKIS Referring Provider: SELF [[id number]] Allergies As of Date: 06/12/2017 Noted Allergy Reaction CLINDOMYCIN (CLINDAMYCIN) 07/10/2009 12 - Shortness of Breath Environmental allergies [Other] 12/01/2006 Comments: Dogs, dust mites, molds, grasses PENICILLINS 11/30/2004 12 - Shortness of Breath SEASONAL ALLERGIES 10/15/2010 14 - Other: See Comments Comments: Seasonal allergies (sinus problems, ect..) seafood [Other] 12/01/2006 Comments: Crabs, tuna Date Reviewed: 06/12/2017 Reviewed by: Kassandra (Sarkis) JESSE Parks.SINGLE STROKE PREFORMER - Fully Assessed Reason for Visit: Menstrual Problem [67] Primary Visit Diagnosis:Irregular menstrual cycle [N92.6] Other Visit Diagnoses:Hair loss [L65.9] Encounter for initial prescription of contraceptive pills [Z30.011] Order(s):TSH BLD [SQTSH] Order #: [id number] FUTURE FSH BLD [SQFSH] Order #: [id number] FUTURE PROLACTIN BLD [SQPROL] Order #: [id number] FUTURE Drospirenone-Ethinyl Estradiol 3-0.03 mg per tabletTake 1 tablet by mouth once daily.Disp: 1 PackageRfl: 12 Prescriptions as of 06/12/2017 Sig: HYDROCODONE 5 MG-ACETAMINOPHE* HYDROCODONE 7.5 MG-ACETAMINOP* KETOTIFEN 0.025 % (0.035 %) E* DICYCLOMINE 10 MG CAPSULE Take 1 capsule by mouth befor* PANTOPRAZOLE 40 MG TABLET,DEL* Take 1 tablet by mouth daily * CITALOPRAM 40 MG TABLET Take 1 tablet by mouth once d* ALBUTEROL SULFATE HFA 90 MCG/* Inhale 2 Puffs as instructed * FLUTICASONE 110 MCG/ACTUATION* Inhale 1 Puff as instructed t* LORAZEPAM 0.5 MG TABLET Take 1 tablet by mouth three * EPINEPHRINE 0.3 MG/0.3 ML INJ* Inject intramuscularly. use * DROSPIRENONE 3 MG-ETHINYL EST* Take 1 tablet by mouth once d* Problem List As Of Date 06/12/2017 Noted Resolved Anxiety state, unspecified [F41.1] INVALID FOR*07/06/2012 More... 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 Depressive disorder, not elsewhere classified [*INVALID FOR* More... Carpal tunnel syndrome on right [G56.01] INVALID FOR*07/12/2011 Panic attacks [F41.0] INVALID FOR* Supervision of other normal [Z34.80] INVALID FOR*04/10/2012 Rh negative status during [O09.899, Z*INVALID FOR*04/10/2012 FHx: cleft palate [Z82.79] INVALID FOR*07/06/2012 More... GBS (group B streptococcus) UTI complicating pr*INVALID FOR*04/10/2012 First trimester bleeding [O20.9] INVALID FOR*07/06/2012 More... Nausea and vomiting in [O21.9] INVALID FOR*07/06/2012 More... History of labor [Z87.51] INVALID FOR*06/12/2017 More... Family history of defects [Z82.79] INVALID FOR* More... Rh negative status during [O09.899, Z*INVALID FOR*06/12/2017 More... Patient requested diagnostic testing [Z01.89] INVALID FOR* More... Varicose veins [I83.90] INVALID FOR* More... History of hemorrhage, currently pre*INVALID FOR*06/12/2017 More... Inguinal hernia [K40.90] INVALID FOR* Prescriptions ordered this encounter Disp Refills Start End DROSPIRENONE 3 MG-ETHINYL ESTRADIOL * 1 Pa* 12 06/12/2017 Route: ORAL Sig: Take 1 tablet by mouth once daily. Encounter Status:Closed by KASSANDRA PARKS on 06/12/17 FEMALE PELVIS Observed: 06/05/2017 Status: F Source: [place] [facility] 4:49 PM [facility] REPOSITORY * * *Final Report* * * DATE OF EXAM: Jun 05 2017 4:49PM [facility] 1060 - FEMALE PELVIS TRANSVAG / PROCEDURE REASON: Pelvic and perineal pain * * * * Physician Interpretation * * * * Ultrasound pelvis: HISTORY: 36 years old Clinical information: LEFT lower quadrant pain for one month Pelvic and perineal pain TECHNIQUE: Transabdominal and transvaginal scans:Images stored and permanent archive. LMP: 05/07/2017 Comparison: 09/27/2016 RESULT: Findings: Measurements: Uterus 8.6 x 4.5 x 5.7 cm . Double layer thickness of endometrium is 9 mm. Uterine texture: Unremarkable Uterine mass: None Right ovary: 3.8 x 2.9 x 2.6 cm . Left ovary: 3.5 x 1.9 x 3.1 cm . Multiple cysts are seen within each ovary the largest on the RIGHT is 11 mm and on the LEFT is 9 mm IMPRESSION: No acute casing wringer operator: JORGE Transcribe Date/Time: Jun 06 2017 12:39P Dictated by : LAURITA SIMMS, DO This examination was interpreted and the report reviewed and electronically signed by: LAURITA SIMMS DO on Jun 06 2017 12:42PM EST [id number] PROGRESS Observed: 06/05/2017 Status: COMPLETED Source: [place] 4:05 PM [facility] REPOSITORY HNO ID: [id number] Author: Chloe Abdi Service: (none) Author Type: (none) Type: Progress Notes Filed: 06/05/2017 4:54 PM Note Text: Radiology Service Progress Note PATIENT NAME: Jaclyn Thompson DATE OF SERVICE: June 05, 2017 TIME: 4:05 PM PATIENT IDENTITY VERIFICATION COMPLETED USING TWO (2) METHODS: Patient confirmed name verbally and Date of . PATIENT GENDER DATA: Female. status: : No status: NO. PATIENT RELEVANT IMPLANT DATA REVIEWED: Yes RADIOLOGY DEPARTMENT: Ultrasound PERIPHERAL IV DATA: Not applicable SIGNED BY: Chloe Abdi June 05, 2017 4:05 PM PROGRESS Observed: 05/27/2017 Status: COMPLETED Source: [place] 4:36 PM [facility] REPOSITORY HNO ID: [id number] Author: Kassandra Parks Service: (none) Author Type: Nurse Practitioner Type: Progress Notes Filed: 05/27/2017 5:09 PM Note Text: Jaclyn Thompson is a 36 year old female who presents for problem visit Left ovary pain. HPI: left ovary pain x 2 weeks. Pain sometimes extends into back. Pain with walking. Has history of ovarian cysts and pain feels like that pain. Thinks pain began with ovulation. Is sexually active, no contraception - rare intercourse - states she knows when she ovulates and does not have intercourse at that time. Declines test. Menses have only lasted 2 days x past 3 days. Usually last 5-6 days. Has chronic lower back pain - is on feet at work a lot and does not sleep well due to [address] Ro once talked about removing left ovary due to chronic ovarian pain. PAST MEDICAL HISTORY Diagnosis Date - Abdominal pain, epigastric - Acute gastritis without mention of hemorrhage - Anemia - Anxiety disorder in conditions classified elsewhere - Chronic cholecystitis - Esophageal reflux - FRACTURE AGE 10 WRIST,FALL ON ICE - Helicobacter pylori (H. 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 in [place] - DANDC, DIAG AND/OR THERAPEUTIC 2004 Dilation AND curettage, - EGD W/O [facility] SPECIMEN W/BX 05/22/07 - INSERT INTRAUTERINE DEVICE 11/2006 Mirena, Removed 05/17/2009 - IUD INSERTION (SPECIAL AGENT IN CHARGE DEPT)_*FL 05/17/2009 Paragard - LAP CHOLECYSTECT/CHOLANGIOGRAPHY 04/08/08 FAMILY HISTORY Problem Relation Age of Onset - Arthritis Father - Hypertension Father - Lipids Father - Arthritis Maternal Grandmother - Diabetes Maternal Grandmother - Diabetes Maternal Grandfather - Heart Paternal Grandmother - Psychiatry Paternal Grandfather - Diabetes Paternal Grandfather - Prostate Cancer Paternal Grandfather - Heart Paternal Uncle - ADD [OTHER] Daughter - ADHD [OTHER] Son Social History Marital status: Single Spouse name: Years of education: 12 Number of children: 3 Occupational History 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 pantoprazole DR (PROTONIX) 40 mg tablet Take 1 tablet by mouth daily before breakfast. Take on empty stomach, 1/2 hr before meal. citalopram (CELEXA) 40 mg tablet Take 1 tablet by mouth once daily. albuterol HFA (VENTOLIN HFA) 90 mcg/actuation inhaler Inhale 2 Puffs as instructed every 4 hours as needed. fluticasone (FLOVENT HFA) 110 mcg/actuation inhaler Inhale 1 Puff as instructed twice daily. LORazepam (ATIVAN) 0.5 mg tab Take 1 tablet by mouth three times daily as needed (anxiety). EPINEPHrine (EPIPEN) 0.3 mg/0.3 mL (1:1,000) atIn Inject intramuscularly. use as directed for allergic reaction. Seek emergent medical care immediately after use. copper (PARAGARD T 380A) 380 square mm IUD INSERTED IN THE OFFICE No current facility-administered medications for this visit. Allergies As of Date: 05/27/2017 Allergen Noted Reaction CLINDOMYCIN [CLINDAMYCIN] 07/10/2009 Shortness of Breath ENVIRONMENTAL ALLERGIES [OTHER] 12/01/2006 PENICILLINS 11/30/2004 Shortness of Breath SEASONAL ALLERGIES 10/15/2010 Other: See Comments SEAFOOD [OTHER] 12/01/2006 Fully Assessed 05/27/2017 REVIEW OF SYSTEMS Abdomen: No bloating, early satiety, indigestion, or increased flatulence. No abdominal pain, nausea, vomiting, diarrhea, or constipation. Bladder: No dysuria, gross hematuria, urinary frequency, urinary urgency, or incontinence. Expanded ROS: GENERAL: no fever or chills Allergies and current medication updated:Yes EXAM: BP 98/60 Wt 191 lb 3.2 oz (86.7kg) LMP 05/06/2017 GENERAL: pleasant, female in no apparent distress CHEST: Normal inspiratory effort ABDOMEN: soft, no masses and Mild tenderness in LLQ NEURO: alert and oriented x3,exam grossly non-focal ASSESSMENT/PLAN: 1. Pelvic pain in female - ICD9: 625.9, ICD10: R10.2 - chronic ovarian pain - Pelvic US KASSANDRA PARKS CNP CNOV Observed: 05/27/2017 Status: COMPLETED Source: [place] 4:30 PM [facility] REPOSITORY Office Visit (WOOB) JACLYN THOMPSON ([id number]) 1980 F Date Time Provider Department 05/27/17 4:30 PM KASSANDRA PARKS (SARKIS) WOOB During your visit today, we recorded the following information about you: Blood pressure Weight Last Period 98/60 86.7 kg 05/06/17 KASSANDRA PARKS CNP 05/27/2017 5:09 PM Signed Jaclynwaqar Thompson is a 36 year old female who presents for problem visit Left ovary pain. HPI: left ANDquot;ovaryANDquot; pain x 2 weeks. Pain sometimes extends into back. Pain with walking. Has history of ovarian cysts and pain feels like that pain. Thinks pain began with ovulation. Is sexually active, no contraception - rare intercourse - states she knows when she ovulates and does not have intercourse at that time. Declines test. Menses have only lasted 2 days x past 3 days. Usually last 5-6 days. Has chronic lower back pain - is on feet at work a lot and does not sleep well due to [address] Ro once talked about removing left ovary due to chronic ovarian pain. PAST MEDICAL HISTORY Diagnosis Date - Abdominal pain, epigastric - Acute gastritis without mention of hemorrhage - Anemia - Anxiety disorder in conditions classified elsewhere - Chronic cholecystitis - Esophageal reflux - FRACTURE AGE 10 WRIST,FALL ON ICE - Helicobacter pylori (H. 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 in [place] - DANDamp;C, DIAG AND/OR THERAPEUTIC 2004 Dilation ANDamp; curettage, - EGD W/O [facility] SPECIMEN W/BX 05/22/07 - INSERT INTRAUTERINE DEVICE 11/2006 Mirena, Removed 05/17/2009 - IUD INSERTION (SPECIAL AGENT IN CHARGE DEPT)_*FL 05/17/2009 Paragard - LAP CHOLECYSTECT/CHOLANGIOGRAPHY 04/08/08 FAMILY HISTORY Problem Relation Age of Onset - Arthritis Father - Hypertension Father - Lipids Father - Arthritis Maternal Grandmother - Diabetes Maternal Grandmother - Diabetes Maternal Grandfather - Heart Paternal Grandmother - Psychiatry Paternal Grandfather - Diabetes Paternal Grandfather - Prostate Cancer Paternal Grandfather - Heart Paternal Uncle - ADD [OTHER] Daughter - ADHD [OTHER] Son Social History Marital status: Single Spouse name: Years of education: 12 Number of children: 3 Occupational History 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 pantoprazole DR (PROTONIX) 40 mg tablet Take 1 tablet by mouth daily before breakfast. Take on empty stomach, 1/2 hr before meal. citalopram (CELEXA) 40 mg tablet Take 1 tablet by mouth once daily. albuterol HFA (VENTOLIN HFA) 90 mcg/actuation inhaler Inhale 2 Puffs as instructed every 4 hours as needed. fluticasone (FLOVENT HFA) 110 mcg/actuation inhaler Inhale 1 Puff as instructed twice daily. LORazepam (ATIVAN) 0.5 mg tab Take 1 tablet by mouth three times daily as needed (anxiety). EPINEPHrine (EPIPEN) 0.3 mg/0.3 mL (1:1,000) atIn Inject intramuscularly. use as directed for allergic reaction. Seek emergent medical care immediately after use. copper (PARAGARD T 380A) 380 square mm IUD INSERTED IN THE OFFICE No current facility-administered medications for this visit. Allergies As of Date: 05/27/2017 Allergen Noted Reaction CLINDOMYCIN [CLINDAMYCIN] 07/10/2009 Shortness of Breath ENVIRONMENTAL ALLERGIES [OTHER] 12/01/2006 PENICILLINS 11/30/2004 Shortness of Breath SEASONAL ALLERGIES 10/15/2010 Other: See Comments SEAFOOD [OTHER] 12/01/2006 Fully Assessed 05/27/2017 REVIEW OF SYSTEMS Abdomen: No bloating, early satiety, indigestion, or increased flatulence. No abdominal pain, nausea, vomiting, diarrhea, or constipation. Bladder: No dysuria, gross hematuria, urinary frequency, urinary urgency, or incontinence. Expanded ROS: GENERAL: no fever or chills Allergies and current medication updated:Yes EXAM: BP 98/60 Wt 191 lb 3.2 oz (86.7kg) LMP 05/06/2017 GENERAL: pleasant, female in no apparent distress CHEST: Normal inspiratory effort ABDOMEN: soft, no masses and Mild tenderness in LLQ NEURO: alert and oriented x3,exam grossly non-focal ASSESSMENT/PLAN: 1. Pelvic pain in female - ICD9: 625.9, ICD10: R10.2 - chronic ovarian pain - Pelvic US KASSANDRA PARKS CNP Referring Provider: SELF [200] Allergies As of Date: 05/27/2017 Noted Allergy Reaction CLINDOMYCIN (CLINDAMYCIN) 07/10/2009 12 - Shortness of Breath Environmental allergies [Other] 12/01/2006 Comments: Dogs, dust mites, molds, grasses PENICILLINS 11/30/2004 12 - Shortness of Breath SEASONAL ALLERGIES 10/15/2010 14 - Other: See Comments Comments: Seasonal allergies (sinus problems, ect..) seafood [Other] 12/01/2006 Comments: Crabs, tuna Date Reviewed: 05/27/2017 Reviewed by: Kassandra (Sarkis) Mitzy - Fully Assessed Reason for Visit: Discussion [813] Cmt: ovarian pain and irregular menses Primary Visit Diagnosis:Pelvic pain in female [R10.2] Order(s): FEMALE PELVIS TRANSVAG [[id number]] Order #: [id number] FUTURE Prescriptions as of 05/27/2017 Sig: KETOTIFEN 0.025 % (0.035 %) E* DICYCLOMINE 10 MG CAPSULE Take 1 capsule by mouth befor* PANTOPRAZOLE 40 MG TABLET,DEL* Take 1 tablet by mouth daily * CITALOPRAM 40 MG TABLET Take 1 tablet by mouth once d* ALBUTEROL SULFATE HFA 90 MCG/* Inhale 2 Puffs as instructed * FLUTICASONE 110 MCG/ACTUATION* Inhale 1 Puff as instructed t* LORAZEPAM 0.5 MG TABLET Take 1 tablet by mouth three * EPINEPHRINE 0.3 MG/0.3 ML INJ* Inject intramuscularly. use * Medication notes this encounter COPPER 380 SQUARE MM INTRAUTERINE DEVICE >> Susan Geiger LPN 05/27/2017 4:35 PM >> SUSAN GEIGER LPN FriMay 27, 2017 4:35 PM discontinued Problem List As Of Date 05/27/2017 Noted Resolved Anxiety state, unspecified [F41.1] INVALID FOR*07/06/2012 More... 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 Depressive disorder, not elsewhere classified [*INVALID FOR* More... Carpal tunnel syndrome on right [G56.01] INVALID FOR*07/12/2011 Panic attacks [F41.0] INVALID FOR* Supervision of other normal [Z34.80] INVALID FOR*04/10/2012 Rh negative status during [O09.899, Z*INVALID FOR*04/10/2012 FHx: cleft palate [Z82.79] INVALID FOR*07/06/2012 More... GBS (group B streptococcus) UTI complicating pr*INVALID FOR*04/10/2012 First trimester bleeding [O20.9] INVALID FOR*07/06/2012 More... Nausea and vomiting in [O21.9] INVALID FOR*07/06/2012 More... History of labor [Z87.51] INVALID FOR* More... Family history of defects [Z82.79] INVALID FOR* More... Rh negative status during [O09.899, Z*INVALID FOR* More... Patient requested diagnostic testing [Z01.89] INVALID FOR* More... Varicose veins [I83.90] INVALID FOR* More... History of hemorrhage, currently pre*INVALID FOR* More... Inguinal hernia [K40.90] INVALID FOR* Medications Discontinued During This Encounter ranitidine (ZANTAC) 150 mg tablet 04/23/2017 05/27/2017 Class: Historical Med Sig: Disc: Reason for discontinue is not on file. copper (PARAGARD T 380A) 380 square * 1 In* 0 04/05/2013 05/27/2017 Class: In Office Cmt: LOT # [id number] EXP 10/06 Susan Geiger LYDIA Sig: INSERTED IN THE OFFICE Disc: Reason for discontinue is not on file. Encounter Status:Closed by KASSANDRA PARKS on 05/27/17 PROGRESS Observed: 05/14/2017 Status: COMPLETED Source: [place] 4:33 PM [facility] [place] REPOSITORY HNO ID: [id number] Author: Aníbal Caal Service: (none) Author Type: Physician Type: Progress Notes Filed: 05/14/2017 5:11 PM Note Text: GERD HPI:Jaclyn Thompson is a 36 year old female who presents for GERD. Patient taking Protonix for several years. She states she has had an increase in mouth sores cuca on tongue. She states she has reflux cuca when sleeping , intermittently, for years. She states symptoms increase when she forgets Protonix. She states she has a lot bloating. She denies dysphagia, chest pain , cough or melenic stools. She said she had and EGD with positive H. Pylori in Mar 2007 for which she was treated. She had bullima as a teenager and into adulthood. EGD in 2007 showed HP. Was treated then. Gaining wt. Now 188 lbs. PAST MEDICAL HISTORY Diagnosis Date - Abdominal pain, epigastric - Acute gastritis without mention of hemorrhage - Anemia - Anxiety disorder in conditions classified elsewhere - Chronic cholecystitis - Esophageal reflux - FRACTURE AGE 10 WRIST,FALL ON ICE - Helicobacter pylori (H. 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 in [place] - DANDC, DIAG AND/OR THERAPEUTIC 2004 Dilation AND curettage, - EGD W/O [facility] SPECIMEN W/BX 05/22/07 - INSERT INTRAUTERINE DEVICE 11/2006 Mirena, Removed 05/17/2009 - IUD INSERTION (SPECIAL AGENT IN CHARGE DEPT)_*FL 05/17/2009 Paragard - LAP CHOLECYSTECT/CHOLANGIOGRAPHY 04/08/08 Allergies: ALLERGIES Allergen Reactions - Clindomycin [Clinda* Shortness of Breath - Environmental Aller* Dogs, dust mites, molds, grasses - Penicillins Shortness of Breath - Seasonal Allergies Other: See Comments Seasonal allergies (sinus problems, ect..) - Seafood [Other] Crabs, tuna Medications: ketotifen fumarate (ZADITOR) 0.025 % (0.035 %) ophthalmic solution pantoprazole DR (PROTONIX) 40 mg tablet Take 1 tablet by mouth daily before breakfast. Take on empty stomach, 1/2 hr before meal. citalopram (CELEXA) 40 mg tablet Take 1 tablet by mouth once daily. albuterol HFA (VENTOLIN HFA) 90 mcg/actuation inhaler Inhale 2 Puffs as instructed every 4 hours as needed. fluticasone (FLOVENT HFA) 110 mcg/actuation inhaler Inhale 1 Puff as instructed twice daily. LORazepam (ATIVAN) 0.5 mg tab Take 1 tablet by mouth three times daily as needed (anxiety). EPINEPHrine (EPIPEN) 0.3 mg/0.3 mL (1:1,000) atIn Inject intramuscularly. use as directed for allergic reaction. Seek emergent medical care immediately after use. copper (PARAGARD T 380A) 380 square mm IUD INSERTED IN THE OFFICE ranitidine (ZANTAC) 150 mg tablet dicyclomine (BENTYL) 10 mg capsule Take 1 capsule by mouth before meals and at bedtime. FAMILY HISTORY Problem Relation Age of Onset - Arthritis Father - Hypertension Father - Lipids Father - Arthritis Maternal Grandmother - Diabetes Maternal Grandmother - Diabetes Maternal Grandfather - Heart Paternal Grandmother - Psychiatry Paternal Grandfather - Diabetes Paternal Grandfather - Prostate Cancer Paternal Grandfather - Heart Paternal Uncle - ADD [OTHER] Daughter - ADHD [OTHER] Son Employer And Job Title: [employer]) Years Of Education Completed: 12 years Marital Status: Single with 3 children Social History Substance Use Topics - Smoking status: Former Smoker Quit date: 12/17/2005 - Smokeless tobacco: Never Used Comment: quit one year ago - Alcohol use Yes Comment: Seldom, NOT DURING Review of Systems: Review of Systems Gastrointestinal: Positive for diarrhea. Heartburn Gas All other systems reviewed and are negative. Physical Examination: BP 118/80 Pulse 84 Ht 5' 6 (1.68m) Wt 188 lb (85.3kg) SpO2 99% BMI 30.36 kg/(m2). Physical Exam Constitutional: She is oriented to person, place, and time. She appears well-developed and well-nourished. HENT: Head: Normocephalic and atraumatic. Right Ear: External ear normal. Left Ear: External ear normal. Nose: Nose normal. Mouth/Throat: Oropharynx is clear and moist. Eyes: Conjunctivae and EOM are normal. Pupils are equal, round, and reactive to light. Neck: Normal range of motion. Neck supple. Cardiovascular: Normal rate, regular rhythm, normal heart sounds and intact distal pulses. Pulmonary/Chest: Effort normal and breath sounds normal. Abdominal: Soft. Bowel sounds are normal. Musculoskeletal: Normal range of motion. Neurological: She is alert and oriented to person, place, and time. She has normal reflexes. Skin: Skin is warm and dry. Psychiatric: She has a normal mood and affect. Her behavior is normal. Judgment and thought content normal. ASSESSMENT: Gastroesophageal reflux disease, esophagitis presence not specified (primary encounter diagnosis) Irritable bowel syndrome with diarrhea PLAN: Office Visit on 05/14/17 -EGD GEN ANES Return in about 3 months (around 08/11/2017). Aníbal Caal MD DATE: 05/14/17 TIME: 5:11 PM CNCO Observed: 05/14/2017 Status: COMPLETED Source: [place] 12:00 AM [facility] REPOSITORY Letter Text UPPER ENDOSCOPY (EGD) You are scheduled at: [facility] [address] [place] [address] You are scheduled for an EGD on 06/17/17 at 10:00 am. YOU MUST have a responsible adult to drive you home and to assist you at home while you finish recovering from your sedation. Please limit the number of people that come with you to 1-2 people due to the limited waiting area. Bring your [employer] license, insurance card(s) and a list of your medications with you. Arrive 45 minutes before your scheduled exam time at 9:15 am Do not eat or drink anything after midnight the night before, including gum and hard candy. If you take any heart, blood pressure or breathing medications, you can take these before 6:00am on the day of your exam with a little sip of water. 5 DAYS BEFORE THE EXAM STOP TAKING ASPIRIN OR ASPIRIN CONTAINING PRODUCTS, VITAMIN E, BLOOD THINNERS SUCH COUMADIN, WARFARIN, PLAVIX, AGGRENOX (Please consult with the prescribing doctor of your blood thinner). DAY OF THE EXAM Diabetics: Please do not take any of your diabetic medications on the morning of the procedure; you may take them after the procedure. Any questions, please call our office at [phone]. There will be a $50.00 charge for any no show appointments or same day cancels. DISCHARGE INSTRUCTION Observed: 05/03/2017 Status: F Source: [place] 1:11 PM [facility] [place] [facility] Medical Records Department [address] [place] [address] Discharge Instruction 05/03/17 1310 MR#: [id number] Acct: [id number] Name: JACLYN THOMPSON Girish Rep #: [id number] : 1980 36 From: Joaquín Sousa DO PCP: Michael Chavarria DO Status: REG ER ED Disposition - Plan for ED Patient: Chief Complaint: Lower Extremity Injury Instructions: ED Contusion Foot Referrals: Michael Chavarria DO [Primary Care Provider] - 5-7 Days What to do if you have Problems For any increased pain, shortness of breath, bleeding, nausea or vomiting, chest pain, or any unexpected problems, contact your Primary Care Provider. Call [facility] ([phone]) or report to the closest Emergency Room. Call 911 if necessary. 05/03/17 1311 <Electronically signed by Joaquín Sousa DO> Date Joaquín Sousa DO Cosigner Signature (If Indicated): Date CC: Michael Chavarria DO EMERGENCY DEPARTMENT Observed: 05/03/2017 Status: F Source: [place] SUMMARY 1:10 PM [facility] [place] [facility] Medical Records Department [address] [place] [address] Emergency Department Summary 05/03/17 1308 MR#: [id number] Acct: [id number] Name: JACLYN THOMPSON Rep #: [id number] : 1980 36 From: Joaquín Sousa DO PCP: Michael Chavarria DO Status: REG ER - ER Visit Summary Date of Service: 05/03/17 Chief Complaint: [Injury right foot] History of Present Illness: The patient is a 36 F [presents to the emergency department with an injury to her right foot that occurred last evening. Patient states that a large glass coffee table fell over onto her right foot. Patient had a hard time bearing weight secondary to pain.] Physical Examination: [Foot-patient has some soft tissue swelling over the proximal dorsal aspect of the foot. There is some faint erythema and soft tissue swelling. No obvious deformity. Patient is neurovascular intact distally. Patient has no pain about the ankle.] Test Results: [Rays of the right foot showed no fractures] Emergency Department Course and Treatment: Given an Mynor wrap and crutches.] Treatment Plan: [Advised to ice and elevate the extremity. Patient to use ibuprofen for discomfort.] Disposition: [Discharge to home in stable condition. Patient advised to follow-up with her primary care physician in 7-10 days as if she continues to have significant discomfort may require repeat x-ray at that time.] Impression: [Contusion right foot] This note was generated with Carlypso dictation software. It may contain incorrect words, spelling, and punctuation that were not noted in review of the chart prior to signing ED Disposition - Plan for ED Patient: Chief Complaint: Lower Extremity Injury Referrals: Michael Chavarria DO [Primary Care Provider] - What to do if you have Problems For any increased pain, shortness of breath, bleeding, nausea or vomiting, chest pain, or any unexpected problems, contact your Primary Care Provider. Call [facility] ([phone]) or report to the closest Emergency Room. Call 911 if necessary. 05/03/17 1310 <Electronically signed by Joaquín Sousa DO> Date Joaquín Sousa DO Cosigner Signature (If Indicated): Date CC: Michael Chavarria DO FOOT MIN 3 VIEWS Observed: 05/03/2017 Status: F Source: [place] 11:46 AM [facility] [place] [facility] Imaging Services [address] [place] [address] Foot min 3 Views MR#: [id number] Acct: [id number] Name: JACLYN THOMPSON Rep #: [id number] : 1980 F 36 From: Galilea Cervantes MD PCP: Michael Chavarria DO Status: REG ER Study: Foot min 3 Views Date of Exam: 05/03/17 Exam# [id number] Ordering Dr: Joaquín Sousa DO STUDY: X-RAY - RIGHT FOOT CLINICAL: Female, 36 years old. Blunt trauma to the metatarsals. TECHNIQUE: view(s) of the foot. COMPARISON: None. FINDINGS: Normal talus, calcaneus, and tarsal bones. The joint spaces are within normal limits. Normal metatarsi. Normal metatarsophalangeal joint of the great toe. There is a bipartite tibial sesamoid. Normal interphalangeal joint of the great toe. Normal phalanges of the great toe. Normal second through fifth metatarsophalangeal joints. Normal interphalangeal joints and phalanges of the lesser toes. The soft tissue structures are unremarkable. There is no demonstrated fracture. RAD/Foot min 3 Views IMPRESSION: No radiographic evidence of acute fracture. If there is still clinical concern for acute fracture, follow-up radiographs in 7-10 days maybe helpful in evaluating a healing radiographically occult fracture. Electronically Signed: Galilea Cervantes MD at 12:56 EST , Service support , CC: Joaquín Sousa DO; Michael Chavarria DO Floor Broker: Signed ALLERGIES ALLERGIES DATE TYPE / CODE NAME / CODE REACTION SEVERITY SOURCE Drug Penicillins/F001 Shortness of Unknown [place] 9 Allergy/540208852( 249788(RXNORM) breath [facility] Hospital Repository Drug Fish Containing Shortness of Unknown [place] 9 Allergy/101496745( Products/N197234 breath [facility]) 525(RXNORM) Hospital Repository Drug ampicillin/F0060 Itching Unknown [place] 9 Allergy/160793327( 67849(RXNORM) [facility]) Hospital Repository Drug clindamycin/F006 Pain in joints Unknown [place] 9 Allergy/421047653( 412849(RXNORM) Community SN[facility]) Hospital Repository Environ/647695132( SEASONAL OTHER: SEE C [place] [address]) ALLERGIES [facility] [place] Repository DRUG CLINDAMYCIN SHORTNESS OF High [place] 0 INGREDI/371124353( [facility] Main SNOMED CT) [place] Repository Miscellaneous OTHER [place] 7 Allergy/448139847( [facility] Main SNOMED CT) [place] Repository Drug PENICILLINS SHORTNESS OF [place] 5 Class/098140316([facility] Main OMED CT) [place] Repository ENCOUNTERS ENCOUNTERS ADMIT/DISCHARGE ACCOUNT ADMITTING ENCOUNTER LOCATION SOURCE NUMBER CLASS 04/13/2018/04/13/19 [id number] Emergency [address] ing:ED Repository 02/10/2018/02/12/20 [id number] Ambulatory [place] 18 [facility] Repository 11/27/2017 [id number] Ambulatory [facility] ing:EMPH Repository 08/14/2017 [id number] Ambulatory [facility] ing:EMPH Repository 07/24/2017 [id number] Ambulatory [facility] ing:EMPH Repository 06/18/2017/06/19/19 [id number] Emergency [address] ing:ED Repository 06/17/2017 [id number] Ambulatory [facility] Repository 06/12/2017/06/13/19 [id number] Ambulatory [address] Repository 06/12/2017/06/14/19 [id number] Ambulatory [address] Repository 06/05/2017/06/06/19 [id number] Ambulatory [address] Repository 05/27/2017/06/03/19 [id number] Ambulatory [address] Repository 05/14/2017/05/14/19 [id number] Ambulatory [address] Repository 05/03/2017/05/03/19 [id number] Emergency [address] ing:ED Repository PAYERS PAYERS ENCOUNTER GUARANTOR PAYER SUBSCRIBER SOURCE 04/13/2018 JACLYN ELLISON Primary Insurance:[facility] JACLYN THOMPSON213 [facility] ADAMSDOB: [facility] [id number] Hospital [address]Odz: [phone] Number: Repository [phone] HP) [id number] Date:[id number] [address], [place] [address]GU: CHECK WEBSITE 04/13/2018 Secondary JACLYN Garrison Insurance:CARESOURCEP MCGUFFEYDOB: [facility] Number: [id number] Hospital [id number] Repository Date:2018-04-13[address]ATTN: [place] [address]NL: 04/13/2018 Tertiary NOT GIVENUNK [place] Insurance:SELF PAY [facility] Number: Effective Repository Date:2018-04-13 11/27/2017 Jaclyn Stout Primary [place]UNK [place] [id number] [place] Insurance:SELF PAY [facility] [address]Kai: [phone] Number: Effective Repository [phone] () Date:2017-11-27 08/14/2017 Jaclyn L Primary NOT GIVENUNK [place] [id number] [place] Insurance:SELF PAY [facility] [address]Evy: (330) Number: Effective Repository [phone] () Date:2017-08-14 07/24/2017 Jaclyn Stout Primary NOT GIVENUNK [place] [id number] [place] Insurance:SELF PAY [facility] [address]Axc: [phone] Number: Effective Repository [phone] () Date:2017-07-12 06/18/2017 Jaclyn L Primary JACLYN Stout [place] [id number] [place] Insurance:CARESOURCEP ADAMSDOB: [facility] Number: [id number] Hospital [address]Hdz: (889) [id number] Repository [phone] () Date:2017-06-18[address]ATTN: [place] [address]GV: 06/18/2017 Secondary NOT GIVENUNK [place] Insurance:SELF PAY [facility] Number: Effective Repository Date:2017-06-18 05/03/2017 Jaclyn L Primary JACLYN Stout [place] [id number] [place] Insurance:CARESOURCEP ADAMSDOB: [facility] Number: [id number] Hospital [address]Zbh: (797) [id number] Repository [phone] () Date:2017-05-03[address]ATTN: [place] [address]KP: 05/03/2017 Secondary NOT GIVENUNK [place] Insurance:SELF PAY [facility] Number: Effective Repository Date:2017-05-03
== END 2018-04-13 16:12 | disposition home or self-care (01) ==
PROVIDERS: Emergency Provider Emergency Medicine; Family Provider Preventive Medicine Occupational Medicine; PCP Preventive Medicine Occupational Medicine
DX: L02.411 Cutaneous abscess of right axilla (principal); Z88.0 Allergy status to penicillin; Z86.14 Personal history of Methicillin resistant Staphylococcus aureus infection; Z87.891 Personal history of nicotine dependence; K21.9 Gastro-esophageal reflux disease without esophagitis
CPT/HCPCS: 10060; 99283

== ENCOUNTER 2018-05-03 10:55 | Emergency (ER) | payer OTHER, MEDICAID, SELFPAY ==
[2018-05-03 10:56] VITALS: BP 149/96; PULSE 136; RESP 15; TEMP 36.2; O2SAT 99; BMI 30.7
--- NOTE | 2018-05-03 11:31 | ED.DCSUM_ITS ---
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 She was slicing cucumbers this morning and cut her left hand on a slicer. She is right-hand dominant. Tetanus was last updated in July 2017. Physical Examination: Vital signs remarkable only for heart rate of 136. Patient sitting upright in bed. She is tearful and upset. Head and neck examination otherwise unremarkable. Heart is tachycardic and regular. Lungs sounds clear. Left hand exam reveals a 1 x 2.5 cm area of skin avulsion on the medial portion of the left hand on the proximal fifth metacarpal. She has full range of motion of all digits. She is normal sensation and cap refill. Test Results: [] Emergency Department Course and Treatment: Wound was cleansed. Surgifoam dressing is applied and arm is elevated. She did have some bleeding through the initial dressing. This was changed out and on repeat checks has had no further bleeding through the dressing. She is to leave this dressing in place through tomorrow. She will then take dressing down and clean around the wound carefully. She will follow up with [facility]. Treatment Plan: [] Disposition: Discharge Impression: Left hand skin avulsion This note was generated with [employer] dictation software. It may contain incorrect words, spelling, and punctuation that were not noted in review of the chart prior to signing ED Disposition - Plan for ED Patient: Referrals: Surendra Chavarria DO [Primary Care Provider] -
--- NOTE | 2018-05-03 11:31 | ED.DEP ---
ED Disposition - Plan for ED Patient: Disposition: Home or Assisted Living Instructions: ED Avulsion Dermal Referrals: [facility] [GROUP OF PHYSICIANS] - 2 Days for wound check
== END 2018-05-03 11:43 | disposition home or self-care (01) ==
PROVIDERS: Emergency Provider Emergency Medicine; Family Provider Preventive Medicine Occupational Medicine; PCP Preventive Medicine Occupational Medicine
DX: S61.402A Unspecified open wound of left hand, initial encounter (principal); W29.0XXA Contact with powered kitchen appliance, initial encounter; Y93.89 Activity, other specified; Y92.233 Cafeteria of hospital as the place of occurrence of the external cause; Y99.0 Civilian activity done for income or pay; Z87.891 Personal history of nicotine dependence
CPT/HCPCS: 99282

== ENCOUNTER → 2018-06-29 | Outpatient (CLI) | payer OTHER, MEDICAID, SELFPAY ==
[2018-05-27 15:30] VITALS: BMI 32.4
[2018-06-29 17:12] LABS: Prolactin 6.7 ng/mL; T4 Free Direct 0.94 ng/dL (0.76-1.46)
[2018-07-02 03:06] LABS: DHEA Sulfate 213.2 ug/dL (57.3-279.2)
[2018-07-02 15:57] LABS: Testosterone Free 0.9 pg/mL (0.0-4.2)
== END | disposition home or self-care (01) ==
LOC: LAB 15:34
PROVIDERS: Family Provider Preventive Medicine Occupational Medicine; PCP Preventive Medicine Occupational Medicine; Referring Provider Nurse Practitioner Women's Health; Visit Provider Nurse Practitioner Women's Health
DX: L68.0 Hirsutism (principal)
CPT/HCPCS: 36415; 82627; 84146; 84402; 84439; 84443; 82626

== ENCOUNTER 2018-07-10 09:57 | Outpatient (RCR) | payer OTHER, SELFPAY ==
[2018-05-27 15:30] VITALS: BMI 32.4
== END 2018-07-21 23:59 ==
LOC: NS 09:57
PROVIDERS: Family Provider Preventive Medicine Occupational Medicine; PCP Preventive Medicine Occupational Medicine; Visit Provider Nurse Practitioner Women's Health
DX: E66.9 Obesity, unspecified (principal); Z68.32 Body mass index [BMI] 32.0-32.9, adult; Z71.3 Dietary counseling and surveillance
CPT/HCPCS: 97802

== ENCOUNTER 2018-08-21 09:30 | Outpatient (RCR) | payer OTHER, SELFPAY ==
[2018-05-27 15:30] VITALS: BMI 32.4
== END 2018-08-21 23:59 ==
LOC: NS 09:30
PROVIDERS: Family Provider Preventive Medicine Occupational Medicine; PCP Preventive Medicine Occupational Medicine; Visit Provider Nurse Practitioner Women's Health
DX: E66.9 Obesity, unspecified (principal); Z68.32 Body mass index [BMI] 32.0-32.9, adult; Z71.3 Dietary counseling and surveillance
CPT/HCPCS: 97803

== ENCOUNTER → 2018-08-27 | Outpatient (CLI) | payer OTHER, MEDICAID, SELFPAY ==
[2018-08-27 13:40] VITALS: BMI 32.4
[2018-09-02 11:30] LABS: HPV APTIMA, High Risk Negative (Negative)
== END | disposition home or self-care (01) ==
LOC: LABSPEC 16:28
PROVIDERS: Family Provider Preventive Medicine Occupational Medicine; PCP Preventive Medicine Occupational Medicine; Referring Provider Nurse Practitioner Women's Health; Visit Provider Nurse Practitioner Women's Health
DX: N89.8 Other specified noninflammatory disorders of vagina (principal); Z12.4 Encounter for screening for malignant neoplasm of cervix
CPT/HCPCS: 87070; 87205; 87624; 88175; G0145

== ENCOUNTER → 2018-10-06 | Outpatient (CLI) | payer OTHER, MEDICAID, SELFPAY ==
[2018-10-06 14:09] VITALS: BMI 30.9
== END | disposition home or self-care (01) ==
LOC: LABSPEC 17:11
PROVIDERS: Family Provider Preventive Medicine Occupational Medicine; PCP Preventive Medicine Occupational Medicine; Referring Provider Nurse Practitioner Women's Health; Visit Provider Nurse Practitioner Women's Health
DX: R35.0 Frequency of micturition (principal)
CPT/HCPCS: 87086; 87088; 87186

== ENCOUNTER → 2019-04-02 14:12 | Outpatient (CLI) | payer OTHER, MEDICAID, SELFPAY ==
[2019-03-29 14:39] VITALS: BMI 30.9
--- NOTE | 2019-04-02 14:12 | BI_ITS ---
MAMMOGRAPHY - BILATERAL DIAGNOSTIC REASON FOR EXAM: Female, 38 years old. Left breast lump. PERTINENT HISTORY: Non-contributory. TECHNIQUE: Digital bilateral breast ramy (3D mammographic acquisition) in the CC and MLO projections. 2-D mediolateral oblique (MLO) and craniocaudad (CC) views of both breasts were obtained. CAD: Full Field Digital Mammography with Computer Added Detection was performed. COMPARISON: Comparison is made with prior examination dated January 09, 2016. FINDINGS: Breast Composition: The breasts are heterogeneously dense, which may obscure small masses. There are no dominant masses or suspicious calcifications. No other significant abnormalities are identified. There has been no significant change since the prior study. BI/DIAG MAMM W/CAD, BILAT IMPRESSION: Stable bilateral diagnostic mammogram. With the patient''s history of a palpable left breast lump, correlation with ultrasound is recommended. ASSESSMENT CATEGORY: BIRADS Category 0: Incomplete. Need additional imaging evaluation. A letter regarding these results will be sent to the patient by the facility within 30 days. Approximately 10% of breast cancers are not detected by mammography. A normal mammogram should not delay biopsy of a clinically suspicious abnormality. Electronically Signed: Luca Schaefer, at 15:51 EST , Service support ,
--- NOTE | 2019-04-02 14:12 | US_ITS ---
STUDY: ULTRASOUND BREAST - LEFT REASON FOR EXAM: Female, 38 years old. Palpable lump left breast. TECHNIQUE: Axial and longitudinal images of the LEFT breast were performed with a high resolution ultrasound transducer. # OF IMAGES: 7 COMPARISON: Comparison is made with prior mammogram done earlier in the day. FINDINGS: LEFT Breast: There is evidence of retroareolar ductal dilatation. No mass lesion is seen. US/Breast Limited Unilateral IMPRESSION: Retroareolar ductal dilatation. ASSESSMENT CATEGORY: BIRADS Category 2: Benign. A letter regarding these results will be sent to the patient by the facility within 30 days. Electronically Signed: Luca Schaefer, at 15:36 EST , Service support ,
== END ==
PROVIDERS: Family Provider Preventive Medicine Occupational Medicine; PCP Preventive Medicine Occupational Medicine; Referring Provider Nurse Practitioner Women's Health; Visit Provider Nurse Practitioner Women's Health
DX: N63.20 Unspecified lump in the left breast, unspecified quadrant (principal)
CPT/HCPCS: 76642; 77066

== ENCOUNTER → 2019-04-08 10:50 | Outpatient (CLI) | payer OTHER, MEDICAID, SELFPAY ==
[2018-10-06 14:09] VITALS: BMI 30.9
[2019-03-29 14:39] VITALS: BMI 30.9
--- NOTE | 2019-04-09 10:52 | PFT ---
INTRODUCTION: The patient is a 38-year-old female that presents for pulmonary function studies secondary to a diagnosis of asthma. Respiratory therapy reports good patient effort. Bronchodilators were used during testing. INTERPRETATION: Forced expiration spirometry demonstrates no evidence of a large airways obstructive ventilatory defect. There was no significant response to aerosolized bronchodilators, based upon strict ATS criteria. Spirograms are of good quality and plateau normally. The respiratory flow volume loop appears normal. Body plethysmography was performed and reveals lung volumes to be within normal limits. Diffusing capacity by single breath CO was also within normal limits at 93% of predicted. IMPRESSION: Normal pulmonary function studies.
== END ==
PROVIDERS: Family Provider Preventive Medicine Occupational Medicine; PCP Preventive Medicine Occupational Medicine; Referring Provider Preventive Medicine Occupational Medicine; Visit Provider Preventive Medicine Occupational Medicine
DX: J45.40 Moderate persistent asthma, uncomplicated (principal)
CPT/HCPCS: 94060; 94726; 94729

== ENCOUNTER → 2019-04-13 15:34 | Outpatient (CLI) | payer OTHER, MEDICAID, SELFPAY ==
[2019-03-29 14:39] VITALS: BMI 30.9
[2019-04-13 16:44] LABS: Follicle Stimulating Hormone 3.6 mIU/mL
[2019-04-13 16:49] LABS: T4 Free Direct 0.88 ng/dL (0.76-1.46); Thyroid Stim Hormone (TSH) 2.72 uIU/mL (0.358-3.74)
== END ==
PROVIDERS: PCP Preventive Medicine Occupational Medicine; Referring Provider Nurse Practitioner Women's Health; Visit Provider Nurse Practitioner Women's Health
DX: N92.6 Irregular menstruation, unspecified (principal)
CPT/HCPCS: 36415; 83001; 84439; 84443

== ENCOUNTER → 2019-04-14 17:07 | Outpatient (CLI) | payer OTHER, MEDICAID, SELFPAY ==
[2019-04-14 13:46] VITALS: BMI 32.1
== END ==
PROVIDERS: PCP Preventive Medicine Occupational Medicine; Referring Provider Nurse Practitioner Women's Health; Visit Provider Nurse Practitioner Women's Health
DX: R30.0 Dysuria (principal)
CPT/HCPCS: 87086; 87088

== ENCOUNTER → 2019-04-17 10:06 | Outpatient (CLI) | payer OTHER, MEDICAID, SELFPAY ==
[2019-04-14 13:46] VITALS: BMI 32.1
--- NOTE | 2019-04-16 18:31 | US_ITS ---
STUDY: RENAL ULTRASOUND - COMPLETE REASON FOR EXAM: Female, 38 years old. BACK PAIN AND RT FLANK TECHNIQUE: Ultrasound evaluation of the kidneys was performed with real-time and static hairston-scale imaging. COMPARISON: None. FINDINGS: RIGHT KIDNEY: Normal location of the right kidney, which is normal in size. The right kidney measures 12.0 cm. There is a normal cortex of the right kidney. The renal cortex measures 2.0 cm. There is no right renal mass or cyst. There are no right renal calculi. There is no right hydronephrosis. DISTAL RIGHT URETER: There is non-visualization of the distal right ureter. There is no demonstrated right ureterovesical junction calculus. There is a visualized right ureteral jet. LEFT KIDNEY: Normal location of the left kidney, which is normal in size. The left kidney measures 11.0 cm. There is a normal cortex of the left kidney. The renal cortex measures 1.5 cm. There is no left renal mass or cyst. There are no left renal calculi. There is no left hydronephrosis. DISTAL LEFT URETER: There is non-visualization of the distal left ureter. There is no demonstrated left ureterovesical junction calculus. There is a visualized left ureteral jet. BLADDER: The distended urinary bladder has a volume of 53 ml. The empty urinary bladder has a volume of ml. There is a normal wall thickness of the distended urinary bladder. There is no demonstrated mass within the urinary bladder. There are no demonstrated bladder calculi. US/Kidney and Bladder IMPRESSION: Normal ultrasound of the kidneys and urinary bladder. Electronically Signed: Morteza Fritz MD at 8:17 EST Tel , Service support ,
== END ==
PROVIDERS: PCP Preventive Medicine Occupational Medicine; Referring Provider Nurse Practitioner Women's Health; Visit Provider Nurse Practitioner Women's Health
DX: M54.9 Dorsalgia, unspecified (principal)
CPT/HCPCS: 76770

== ENCOUNTER → 2019-04-17 10:10 | Outpatient (CLI) | payer OTHER, MEDICAID, SELFPAY ==
[2019-04-14 13:46] VITALS: BMI 32.1
[2019-04-17 10:28] LABS: Hematocrit 41.1 % (37-47); Hemoglobin 13.1 g/dL (12.0-15.0); Mean Corp Hgb Conc 31.9 g/dL (32-36); Mean Corpuscular Hgb 27.7 pg (27.0-32.0); Mean Corpuscular Volume 86.9 fL (81-99); Mean Platelet Vol. 8.8 fl (6.2-12.0); Platelet Count 403 K/mm3 (150-450); RBC Distribution Width CV 13.2 % (11.6-14.6); RBC Distribution Width SD 42.2 fl (35.1-43.9); Red Blood Count 4.73 M/mm3 (4.2-5.4); White Blood Count 10.7 K/mm3 (4.4-11.0)
[2019-04-17 11:12] LABS: ALB/GLOB Ratio 0.8 RATIO (0.9-2.4); AST(SGOT) 43 U/L (15-37); Alanine Aminotransfer ALT/SGPT 85 U/L (13-56); Albumin, Serum 3.4 g/dL (3.2-5.0); Alkaline Phosphatase 152 U/L (45-117); Anion Gap 2 (5-15); BUN 13 mg/dL (7-18); BUN/Creat Ratio 17.7 RATIO (10-20); Calcium,Total 8.6 mg/dL (8.5-10.1); Chloride 109 mmol/L (98-107); Cholesterol 166 mg/dL (200); Creatinine, Serum 0.73 mg/dL (0.55-1.02); EST Glomerular Filtration Rate 95 mL/min (>60); Est Glom Filt Rate - Afr Amer 115 mL/min (>60); Globulin 4.2 g/dL (2.2-4.2); Glucose 88 mg/dL (74-106); High Density Lipoprotein 50 mg/dL; Potassium 4.1 mmol/L (3.5-5.1); Protein, Total 7.6 g/dL (6.4-8.2); Sodium Level 138 mmol/L (136-145); Triglycerides 34 mg/dL; Very Low Density Lipoprotein 7 mg/dL (5-40)
== END ==
PROVIDERS: PCP Preventive Medicine Occupational Medicine; Referring Provider Preventive Medicine Occupational Medicine; Visit Provider Preventive Medicine Occupational Medicine
DX: Z00.00 Encounter for general adult medical examination without abnormal findings (principal)
CPT/HCPCS: 36415; 80053; 80061; 85027

== ENCOUNTER → 2019-05-11 15:52 | Outpatient (CLI) | payer OTHER, MEDICAID, SELFPAY ==
[2019-05-10 12:16] VITALS: BMI 31.9
[2019-05-15 03:07] LABS: Alternaria tenuis <0.10 kU/L (Class 0); Ash, White <0.10 kU/L (Class 0); Aspergillus fumigatus <0.10 kU/L (Class 0); Bermuda Grass <0.10 kU/L (Class 0); Birch <0.10 kU/L (Class 0); Black Walnut <0.10 kU/L (Class 0); Cat Hair / Dander,Stand <0.10 kU/L (Class 0); Cedar, Mountain <0.10 kU/L (Class 0); Cladosporium herbarum <0.10 kU/L (Class 0); Cockroach, American <0.10 kU/L (Class 0); Cottonwood <0.10 kU/L (Class 0); D farinae Mite <0.10 kU/L (Class 0); D pteronyssinus <0.10 kU/L (Class 0); Dog Epithelia <0.10 kU/L (Class 0); Elm, American White <0.10 kU/L (Class 0); Immunoglobulin E 14 IU/mL (6-495); Maple/Box Elder <0.10 kU/L (Class 0); Mulberry, White <0.10 kU/L (Class 0); Oak, White <0.10 kU/L (Class 0); Pecan <0.10 kU/L (Class 0); Penicillium Notatum <0.10 kU/L (Class 0); Pigweed, Rough <0.10 kU/L (Class 0); Ragweed, Short/Common <0.10 kU/L (Class 0); Russian Thistle <0.10 kU/L (Class 0); Sheep Sorrel <0.10 kU/L (Class 0); Sycamore, American <0.10 kU/L (Class 0); Timothy Grass <0.10 kU/L (Class 0)
[2019-05-15 10:13] LABS: Mouse Urine <0.10 kU/L (Class 0)
[2019-05-15 20:07] LABS: Aspirgillus flavus Negative (Neg:<1:1); Aspirgillus fumigatus Negative (Neg:<1:1); Aspirgillus niger Negative (Neg:<1:1)
[2019-05-16 09:11] LABS: Immunoglobulin E 14 IU/mL (6-495)
== END ==
PROVIDERS: PCP Preventive Medicine Occupational Medicine; Referring Provider Internal Medicine Critical Care Medicine; Visit Provider Internal Medicine Critical Care Medicine
DX: R05 Cough (principal)
CPT/HCPCS: 36415; 82785; 86003; 86606

== ENCOUNTER → 2019-05-24 10:52 | Outpatient (CLI) | payer OTHER, MEDICAID, SELFPAY ==
[2019-05-24 16:52] VITALS: BMI 31.9
[2019-05-25 11:00] LABS: Bacteria 0 SEEN /hpf (None Seen); Red Blood Cells-Urine 0 SEEN /hpf (0-5); White Blood Cells 0 SEEN /hpf (0-5)
[2019-05-25 11:04] LABS: Color, Urine Yellow (Yellow); Glucose, Dipstick Normal (Normal); Ketone-Dipstick 15 mg/dl (Negative); Leukocyte Esterase-Dipstick Negative /ul (Negative); Nitrite-Dipstick Negative (Negative); Occult Blood-Urine Negative /ul (Negative); Protein-Dipstick 15 mg/dl (Negative); Specific Gravity, Urine 1.025 (1.002-1.030); Urine Bilirubin Dipstick Negative (Negative); Urine Clarity Sl. Cloudy (Clear); Urine Urobilinogen 4 mg/dl (Normal)
[2019-05-25 11:10] LABS: Mucous, Urine 1+ /hpf (<or=2+); Squamous Epithelial Cells - UA 0-5 SEEN /hpf (5-10)
== END ==
PROVIDERS: PCP Preventive Medicine Occupational Medicine; Referring Provider Physician Assistant Surgical; Visit Provider Physician Assistant Surgical
DX: M54.5 Low back pain (principal)
CPT/HCPCS: 81001; 87086; 87088

== ENCOUNTER → 2019-06-11 11:59 | Outpatient (CLI) | payer OTHER, MEDICAID, SELFPAY ==
[2019-05-24 16:52] VITALS: BMI 31.9
[2019-06-11 12:45] LABS: Estradiol 632.6 pg/mL; Prolactin 16.5 ng/mL
[2019-06-13 06:37] LABS: DHEA Sulfate 230.7 ug/dL (57.3-279.2)
[2019-06-14 13:08] LABS: Testosterone Free 2.2 pg/mL (0.0-4.2)
== END ==
PROVIDERS: PCP Preventive Medicine Occupational Medicine; Referring Provider Nurse Practitioner Women's Health; Visit Provider Nurse Practitioner Women's Health
DX: N91.5 Oligomenorrhea, unspecified (principal)
CPT/HCPCS: 36415; 82627; 82670; 84146; 84402; 82626

== ENCOUNTER → 2019-06-15 15:35 | Outpatient (CLI) | payer OTHER, MEDICAID, SELFPAY ==
[2019-05-24 16:52] VITALS: BMI 31.9
--- NOTE | 2019-06-15 15:37 | US_ITS ---
STUDY: FIRST TRIMESTER OBSTETRICAL ULTRASOUND REASON FOR EXAM: Female, 38 years old NO MENSES FOR 2 MONTHS LMP: 04/05/2019 TECHNIQUE: Pelvic ultrasound was performed. Multiple garcia scale and color duplex Doppler images were obtained. TECHNICAL QUALITY: Adequate. PRIOR ULTRASOUND: None. FINDINGS: There is visualization of a single gestational sac in a normal intrauterine position. The mean sac diameter (MSD) measures 2.79 cm, indicating an estimated gestational age (EGA) of 8 weeks, 0 days. The gestational sac shape is within normal limits. There is a visualized yolk sac. The yolk sac measures 3.2 mm. The placenta is non-visualized. There is visualization of a live embryo. The crown-rump length (CRL) measures 1.79 cm, indicating an estimated gestational age (EGA) of 8 weeks, 2 days. There is demonstrated cardiac activity with a heart rate of 164 bpm. The estimated gestation age (EGA) by LMP is 10 weeks, 1 days. The estimated date of delivery (ISIAH) by LMP is 01/10/2020. The estimated gestation age (EGA) by US is 8 weeks, 1 days. The estimated date of delivery (ISIAH) by US is 01/24/2020. The uterus measures 11.5 x 8 x 4.9 cm. There is no demonstrated uterine fibroid. The cervix is closed. The right ovary measures 4.4 x 2.5 x 2.4 cm. There is no right ovarian cyst. There is no visualized right adnexal mass or complex lesion. The left ovary measures 2.9 x 2 x 1.2 cm. There is no left ovarian cyst. There is no visualized left adnexal mass or complex lesion. There is no fluid in the cul de sac. US/Transvaginal w/Preg US IMPRESSION: Single live intrauterine gestation evaluation for anatomy at this age is nondiagnostic. Follow-up ultrasound in 10 weeks to evaluate anatomy is recommended Electronically Signed: Surendra Edwards, at 16:39 EDT Tel , Service support ,
--- NOTE | 2019-06-15 15:37 | US_ITS ---
STUDY: FIRST TRIMESTER OBSTETRICAL ULTRASOUND REASON FOR EXAM: Female, 38 years old NO MENSES FOR 2 MONTHS LMP: 04/05/2019 TECHNIQUE: Pelvic ultrasound was performed. Multiple garcia scale and color duplex Doppler images were obtained. TECHNICAL QUALITY: Adequate. PRIOR ULTRASOUND: None. FINDINGS: There is visualization of a single gestational sac in a normal intrauterine position. The mean sac diameter (MSD) measures 2.79 cm, indicating an estimated gestational age (EGA) of 8 weeks, 0 days. The gestational sac shape is within normal limits. There is a visualized yolk sac. The yolk sac measures 3.2 mm. The placenta is non-visualized. There is visualization of a live embryo. The crown-rump length (CRL) measures 1.79 cm, indicating an estimated gestational age (EGA) of 8 weeks, 2 days. There is demonstrated cardiac activity with a heart rate of 164 bpm. The estimated gestation age (EGA) by LMP is 10 weeks, 1 days. The estimated date of delivery (ISIAH) by LMP is 01/10/2020. The estimated gestation age (EGA) by US is 8 weeks, 1 days. The estimated date of delivery (ISIAH) by US is 01/24/2020. The uterus measures 11.5 x 8 x 4.9 cm. There is no demonstrated uterine fibroid. The cervix is closed. The right ovary measures 4.4 x 2.5 x 2.4 cm. There is no right ovarian cyst. There is no visualized right adnexal mass or complex lesion. The left ovary measures 2.9 x 2 x 1.2 cm. There is no left ovarian cyst. There is no visualized left adnexal mass or complex lesion. There is no fluid in the cul de sac. US/OB Limited With Biometrics IMPRESSION: Single live intrauterine gestation evaluation for anatomy at this age is nondiagnostic. Follow-up ultrasound in 10 weeks to evaluate anatomy is recommended Electronically Signed: Surendra Edwards, at 16:39 EDT Tel , Service support ,
== END ==
PROVIDERS: PCP Preventive Medicine Occupational Medicine; Referring Provider Nurse Practitioner Women's Health; Visit Provider Nurse Practitioner Women's Health
DX: N91.5 Oligomenorrhea, unspecified (principal)
CPT/HCPCS: 76816; 76817

== ENCOUNTER → 2019-06-18 16:08 | Outpatient (CLI) | payer OTHER, MEDICAID, SELFPAY ==
[2019-06-18 15:54] VITALS: BMI 31.9
== END ==
PROVIDERS: PCP Preventive Medicine Occupational Medicine; Referring Provider Obstetrics & Gynecology; Visit Provider Obstetrics & Gynecology
DX: R30.0 Dysuria (principal)
CPT/HCPCS: 87086; 87088; 87186

== ENCOUNTER → 2019-06-25 16:02 | Outpatient (CLI) | payer OTHER, MEDICAID, SELFPAY ==
[2019-06-25 14:14] VITALS: BMI 31.9
[2019-06-25 16:44] LABS: Amphetamine Urine VISTA NEGATIVE (<1000 ng/mL); Barbiturate Urine VISTA NEGATIVE (< 200 ng/mL); Benzodiazepine Urine VISTA NEGATIVE (< 200 ng/mL); Cocaine Urine VISTA NEGATIVE (< 300 ng/mL); Ecstacy Urine VISTA NEGATIVE (< 500 ng/mL); Methadone Urine VISTA NEGATIVE (< 300 ng/mL); PCP Urine VISTA NEGATIVE (< 25 ng/mL); THC Urine VISTA NEGATIVE (< 50 ng/mL); Vista UDS pH Range 6
[2019-06-25 18:26] LABS: Chlamydia Trachomatis by PCR Negative (Negative); Neisserai gonorrhoeae by PCR Negative (Negative); Probe Check PASS; Sample Adequacy Control PASS; Specimen Processing Control PASS
== END ==
PROVIDERS: PCP Preventive Medicine Occupational Medicine; Referring Provider Obstetrics & Gynecology; Visit Provider Obstetrics & Gynecology
DX: O09.529 Supervision of elderly multigravida, unspecified trimester (principal); Z3A.00 Weeks of gestation of pregnancy not specified
CPT/HCPCS: 80307; 87491; 87591

== ENCOUNTER → 2019-07-05 15:24 | Outpatient (CLI) | payer OTHER, MEDICAID, SELFPAY ==
[2019-06-25 14:14] VITALS: BMI 31.9
[2019-07-05 16:32] LABS: Absolute Lymphocyte Count 2.34 X10^3/uL (0.83-4.51); Absolute Neutrophil Count 9.4 X10^3/uL (2.0-7.7); Basophil# 0.05 X10^3/uL; Basophil% 0.4 % (0-1); Eosinophil# 0.23 X10^3/uL; Eosinophils% 1.7 % (0-5); Hemoglobin 12.4 g/dL (12.0-15.0); Lymphocyte # 2.34 X10^3/ul (4.0); Lymphocyte % 17.7 % (19-41); Mean Corp Hgb Conc 31.8 g/dL (32-36); Mean Corpuscular Hgb 27.6 pg (27.0-32.0); Mean Corpuscular Volume 86.9 fL (81-99); Monocyte% 8.3 % (0-10); NRBC Flagged by Analyzer 0 % (0-5); Neutrophil % 71.4 % (47-70); Platelet Count 384 K/mm3 (150-450); RBC Distribution Width CV 13.4 % (11.6-14.6); RBC Distribution Width SD 42.5 fl (35.1-43.9); Red Blood Count 4.49 M/mm3 (4.2-5.4); White Blood Count 13.2 K/mm3 (4.4-11.0)
[2019-07-05 16:44] LABS: NATERA MAILED SPECIMEN
[2019-07-05 16:56] LABS: Glucose Challenge Gest 1H 50g 69 mg/dL (70-140)
[2019-07-06 09:49] LABS: HIV - WCH Non-Reactive (Nonreactive); Hepatitis B Surface Antigen Non-Reactive (Nonreactive); Hepatitis C Antibody Non-Reactive (Nonreactive); Rubella IgG 61.3 IU/mL
[2019-07-08 00:57] LABS: Rapid Plasmin Reagin (RPR) NONREACTIVE (NONREACTIVE)
== END ==
PROVIDERS: PCP Preventive Medicine Occupational Medicine; Referring Provider Obstetrics & Gynecology; Visit Provider Obstetrics & Gynecology
DX: O09.529 Supervision of elderly multigravida, unspecified trimester (principal); Z3A.00 Weeks of gestation of pregnancy not specified
CPT/HCPCS: 36415; 82950; 85025; 86592; 86703; 86762; 86803; 86850; 86900; 86901; 87340

== ENCOUNTER → 2019-08-03 16:41 | Outpatient (CLI) | payer OTHER, MEDICAID, SELFPAY ==
[2019-08-03 15:05] VITALS: BMI 31.9
== END ==
PROVIDERS: Visit Provider Obstetrics & Gynecology
DX: O23.40 Unspecified infection of urinary tract in pregnancy, unspecified trimester (principal); Z3A.00 Weeks of gestation of pregnancy not specified
CPT/HCPCS: 87086; 87088

== ENCOUNTER → 2019-09-08 12:29 | Outpatient (CLI) | payer OTHER, MEDICAID, SELFPAY ==
[2019-06-25 14:14] VITALS: BMI 31.9
[2019-08-03 15:05] VITALS: BMI 31.9
--- NOTE | 2019-09-08 12:31 | US_ITS ---
STUDY: SECOND AND THIRD TRIMESTER OBSTETRICAL ULTRASOUND REASON FOR EXAM: Female, 38 years old anatomy LMP: April 17, 2019. TECHNIQUE: Transabdominal TECHNICAL QUALITY: Adequate. PRIOR ULTRASOUND: Comparison is made with prior examination of June 15, 2019. FINDINGS: There is a single intrauterine fetus. The fetus is in a cephalic presentation. There is demonstrated cardiac activity with a heart rate of 121 bpm. There is a normal amniotic fluid volume. The largest amniotic fluid pocket measures 7.5 cm x 3.8 cm. The amniotic fluid index (TYESHA) is within normal limits. The placenta is anterior in location and is not low lying. There are Grade 1 placental changes. The cervix measures 3.9 cm in length. The bilateral adnexal regions are normal. BIOMETRY: BPD: 5.3 cm: 22 weeks, 0 days HC: 19.06 cm: 21 weeks, 2 days AC: 16.8 cm: 21 weeks, 5 days FL: 3.1 cm: 19 weeks, 5 days CI: 84% FL/BPD: 59% FL/HC: FL/AC: 18.7% HC/AC: 1.13 age by current US: 20 weeks, 5 days. ISIAH by current US: January 21, 2020. Estimated weight: 390 grams, +/- 58 grams, 73.5 %. age by prior US: 20 weeks, 2 days. ISIAH by prior US: January 24, 2020. Age by LMP: 20 weeks, 3 days. ISIAH by LMP: January 23, 2020. ANATOMY: Gender: Male Cranium: Normal lateral ventricles. Normal choroid plexus. Normal cerebellum. Normal cisterna magna. The face, nose and lips are not visualized due to the position.. Chest: Normal 4-chamber heart. Abdomen/Pelvis: Normal diaphragm. Normal stomach. Normal abdominal wall. Normal cord insertion. Normal 3 vessel cord. Normal kidneys. Normal bladder. Spine: Normal cervical spine. Normal thoracic spine. Normal lumbar spine. Normal sacrum. Extremities: Normal bilateral upper extremities. Normal bilateral lower extremities. US/OB Anatomy Scan IMPRESSION: Single live uterine gestation with a mean gestational age of 20 weeks and 2 days. The measurements obtained today fall within the normal expected range. Follow-up examination to assess the face nose and lips recommended. Electronically Signed: Luca Schaefer, at 14:44 EDT , Service support ,
== END ==
PROVIDERS: PCP Preventive Medicine Occupational Medicine; Referring Provider Obstetrics & Gynecology; Visit Provider Obstetrics & Gynecology
DX: O09.529 Supervision of elderly multigravida, unspecified trimester (principal); Z3A.20 20 weeks gestation of pregnancy
CPT/HCPCS: 76805

== ENCOUNTER → 2019-09-21 08:08 | Outpatient (CLI) | payer OTHER, MEDICAID, SELFPAY ==
[2019-09-10 14:24] VITALS: BMI 31.9
--- NOTE | 2019-09-21 08:10 | US_ITS ---
STUDY: SECOND AND THIRD TRIMESTER OBSTETRICAL ULTRASOUND - LIMITED REASON FOR EXAM: Female, 38 years old f/u ANATOMY SCAN FOR 3V CORD, NOSE/LIPS, AND PROFILE LMP: October 16, 2019. PRIOR ULTRASOUND: Comparison is made with prior study dated September 08, 2019. TECHNIQUE: Transabdominal TECHNICAL QUALITY: Adequate. FINDINGS: There is a single intrauterine fetus. The fetus is in a cephalic presentation. There is demonstrated cardiac activity with a heart rate of 134 bpm. There is a normal amniotic fluid volume. The largest amniotic fluid pocket measures 4.9 cm x 4.0 cm. The amniotic fluid index (TYESHA) is within normal limits . The placenta is anterior in location and is not low lying. There are Grade 1 placental changes. The cervix measures 5.4 cm in length. A three-vessel cord was identified. Profile imaging of the nose and lips were obtained. They are unremarkable. US/OB Limited (No Biometrics) IMPRESSION: Unremarkable examination. Electronically Signed: Luca Schaefer, at 15:50 EDT , Service support ,
== END ==
PROVIDERS: PCP Family Medicine; Referring Provider Obstetrics & Gynecology; Visit Provider Obstetrics & Gynecology
DX: O09.529 Supervision of elderly multigravida, unspecified trimester (principal); Z3A.00 Weeks of gestation of pregnancy not specified
CPT/HCPCS: 76815

== ENCOUNTER → 2019-10-07 15:19 | Outpatient (CLI) | payer OTHER, MEDICAID, SELFPAY ==
[2019-09-10 14:24] VITALS: BMI 31.9
[2019-10-07 15:49] LABS: Absolute Lymphocyte Count 2.44 X10^3/uL (0.83-4.51); Absolute Neutrophil Count 12.3 X10^3/uL (2.0-7.7); Basophil# 0.06 X10^3/uL; Basophil% 0.4 % (0-1); Eosinophil# 0.31 X10^3/uL; Eosinophils% 1.9 % (0-5); Hematocrit 29.2 % (37-47); Hemoglobin 9.2 g/dL (12.0-15.0); Lymphocyte # 2.44 X10^3/ul (4.0); Lymphocyte % 14.8 % (19-41); Mean Corp Hgb Conc 31.5 g/dL (32-36); Mean Corpuscular Hgb 26.5 pg (27.0-32.0); Mean Corpuscular Volume 84.1 fL (81-99); Monocyte# 1.28 X10^3/uL; Monocyte% 7.7 % (0-10); NRBC Flagged by Analyzer 0 % (0-5); Neutrophil # 12.34 X10^3/uL (2.7-7.7); Neutrophil % 74.7 % (47-70); Platelet Count 409 K/mm3 (150-450); RBC Distribution Width CV 13.3 % (11.6-14.6); RBC Distribution Width SD 40.6 fl (35.1-43.9); Red Blood Count 3.47 M/mm3 (4.2-5.4); White Blood Count 16.5 K/mm3 (4.4-11.0)
== END ==
PROVIDERS: PCP Family Medicine; Referring Provider Obstetrics & Gynecology; Visit Provider Obstetrics & Gynecology
DX: O09.529 Supervision of elderly multigravida, unspecified trimester (principal); Z3A.00 Weeks of gestation of pregnancy not specified
CPT/HCPCS: 36415; 85025

== ENCOUNTER → 2019-10-08 17:21 | Outpatient (CLI) | payer OTHER, MEDICAID, SELFPAY ==
[2019-10-08 15:57] VITALS: BMI 31.9
== END ==
PROVIDERS: PCP Family Medicine; Referring Provider Obstetrics & Gynecology; Visit Provider Obstetrics & Gynecology
DX: R35.0 Frequency of micturition (principal)
CPT/HCPCS: 87086; 87088

== ENCOUNTER → 2019-10-14 14:59 | Outpatient (CLI) | payer OTHER, MEDICAID, SELFPAY ==
[2019-10-08 15:57] VITALS: BMI 31.9
[2019-10-14 15:04] VITALS: BP 123/76; PULSE 101; RESP 16; TEMP 36.1; O2SAT 97; BMI 34.7
[2019-10-14] MEDS: 0.9% NaCl Peripheral Flush Adult/Peds IV (15:20)
[2019-10-14] MEDS: 0.9% NaCl IVPB Med Flush (250 mL) 15 ML IV (15:20)
[2019-10-14 17:13] VITALS: BP 125/66; PULSE 95
== END ==
PROVIDERS: PCP Family Medicine; Referring Provider Obstetrics & Gynecology; Visit Provider Obstetrics & Gynecology
DX: D50.9 Iron deficiency anemia, unspecified (principal)
CPT/HCPCS: 96365; J1756; J7050; A4216

== ENCOUNTER → 2019-10-22 12:59 | Outpatient (CLI) | payer OTHER, MEDICAID, SELFPAY ==
[2019-10-08 15:57] VITALS: BMI 31.9
[2019-10-14 15:04] VITALS: BMI 34.7
[2019-10-22 13:06] VITALS: BP 117/56; PULSE 100; RESP 16; TEMP 36.4; O2SAT 97; BMI 35.6
[2019-10-22] MEDS: 0.9% NaCl IVPB Med Flush (250 mL) 15 ML IV (13:24)
[2019-10-22] MEDS: 0.9% NaCl Peripheral Flush Adult/Peds IV (13:30)
[2019-10-22 15:25] VITALS: BP 119/65; PULSE 97; RESP 16; O2SAT 97
== END ==
PROVIDERS: PCP Family Medicine; Referring Provider Family Medicine; Visit Provider Obstetrics & Gynecology
DX: D50.9 Iron deficiency anemia, unspecified (principal)
CPT/HCPCS: 96365; J1756; J7050; A4216

== ENCOUNTER → 2019-10-23 11:44 | Outpatient (CLI) | payer OTHER, MEDICAID, SELFPAY ==
[2019-10-22 13:06] VITALS: BMI 35.6
== END ==
PROVIDERS: PCP Family Medicine; Referring Provider Obstetrics & Gynecology; Visit Provider Obstetrics & Gynecology
DX: D50.9 Iron deficiency anemia, unspecified (principal)

== ENCOUNTER → 2019-10-29 16:39 | Outpatient (CLI) | payer OTHER, MEDICAID, SELFPAY ==
[2019-10-25 16:15] VITALS: BMI 35.6
[2019-10-29 17:22] LABS: Glucose Challenge Gest 1H 50g 92 mg/dL (70-140)
== END ==
PROVIDERS: PCP Family Medicine; Referring Provider Obstetrics & Gynecology; Visit Provider Obstetrics & Gynecology
DX: Z34.90 Encounter for supervision of normal pregnancy, unspecified, unspecified trimester (principal)
CPT/HCPCS: 36415; 82950

== ENCOUNTER → 2019-11-03 13:59 | Outpatient (CLI) | payer OTHER, MEDICAID, SELFPAY ==
[2019-10-08 15:57] VITALS: BMI 31.9
[2019-10-25 16:15] VITALS: BMI 35.6
[2019-11-03 14:25] VITALS: BP 124/71; PULSE 90; RESP 16; TEMP 36.1; O2SAT 100; BMI 35.6
[2019-11-03] MEDS: 0.9% NaCl IVPB Med Flush (250 mL) 15 ML IV (15:26)
[2019-11-03] MEDS: 0.9% NaCl Peripheral Flush Adult/Peds IV (15:26)
[2019-11-03 16:30] VITALS: BP 126/71; PULSE 94; RESP 16
== END ==
PROVIDERS: PCP Family Medicine; Referring Provider Obstetrics & Gynecology; Visit Provider Obstetrics & Gynecology
DX: D50.9 Iron deficiency anemia, unspecified (principal)
CPT/HCPCS: 96365 ×2; J1756; J7050; A4216

== ENCOUNTER → 2019-11-10 16:52 | Outpatient (CLI) | payer OTHER, MEDICAID, SELFPAY ==
[2019-11-10 11:05] VITALS: BMI 35.6
[2019-11-10 17:14] LABS: Absolute Neutrophil Count 10.8 X10^3/uL (2.0-7.7); Basophil# 0.04 X10^3/uL; Basophil% 0.3 % (0-1); Eosinophil# 0.21 X10^3/uL; Eosinophils% 1.5 % (0-5); Hematocrit 33.6 % (37-47); Hemoglobin 10.7 g/dL (12.0-15.0); Lymphocyte % 14.2 % (19-41); Mean Corp Hgb Conc 31.8 g/dL (32-36); Mean Corpuscular Hgb 28.2 pg (27.0-32.0); Mean Corpuscular Volume 88.7 fL (81-99); Monocyte# 0.93 X10^3/uL; Monocyte% 6.6 % (0-10); NRBC Flagged by Analyzer 0 % (0-5); Neutrophil # 10.81 X10^3/uL (2.7-7.7); Neutrophil % 76.5 % (47-70); Platelet Count 360 K/mm3 (150-450); RBC Distribution Width CV 18.6 % (11.6-14.6); Red Blood Count 3.79 M/mm3 (4.2-5.4); White Blood Count 14.1 K/mm3 (4.4-11.0)
== END ==
PROVIDERS: Obstetrics & Gynecology; PCP Family Medicine; Referring Provider Obstetrics & Gynecology; Visit Provider Obstetrics & Gynecology
DX: D50.9 Iron deficiency anemia, unspecified (principal)
CPT/HCPCS: 36415; 85025; 86850; 86900; 86901

== ENCOUNTER → 2019-11-11 16:02 | Outpatient (CLI) | payer OTHER, MEDICAID, SELFPAY ==
[2019-11-10 11:05] VITALS: BMI 35.6
[2019-11-11 15:55] VITALS: BMI 35.6
--- NOTE | 2019-11-11 16:04 | VDLE_ITS ---
Reason For Study: swelling RIGHT LEFT GSV is normal. GSV is normal. CFV is compressible, spontaneous, phasic, CFV is compressible, spontaneous, phasic, competent and demonstrates normal competent, and demonstrates normal augmentation. augmentation. FV is compressible, spontaneous, phasic, FV is compressible, spontaneous, phasic, competent and demonstrates normal competent and demonstrates normal augmentation. augmentation. POP V is compressible, spontaneous, phasic, POP V is compressible, spontaneous, phasic, competent and demonstrates normal competent and demonstrates normal augmentation. augmentation. T/P Trunk is compressible. T/P Trunk is compressible. PTV is compressible. PTV is compressible. RT PerV is compressible. LT PerV is compressible. Procedure Exam performed in department. The exam was diagnostic. A preliminary report was called and/or faxed to [facility]. Interpretation Summary Deep veins of the lower extremities are bilaterally patent and compressible segmentally. There is no evidence of deep vein thrombosis on either side. Valvular competence appears intact within the proximal deep venous systems bilaterally. The great saphenous veins appear bilaterally patent and compressible segmentally. Ordering Physician: Drea Lin Performed By: Issa Schuster RVT
== END ==
PROVIDERS: PCP Preventive Medicine Occupational Medicine; Referring Provider Obstetrics & Gynecology; Visit Provider Obstetrics & Gynecology
DX: M79.89 Other specified soft tissue disorders (principal); R60.0 Localized edema
CPT/HCPCS: 93970

== ENCOUNTER 2019-12-09 18:07 | Observation (INO) | payer OTHER, MEDICAID, SELFPAY ==
[2019-12-09] VITALS (7 sets, daily range): BP systolic 119–133; BP diastolic 59–74; PULSE 100–124; TEMP 36.9; O2SAT 95–98; BMI 35.6; BMI 36.8
[2019-12-09] MEDS: Betamethasone/Betamethasone 30 MG/5 ML Vial 12 MG IM (12:02)
[2019-12-09] MEDS: Lactated Ringers 1,000 ML 999 ML IV (12:03)
[2019-12-09] MEDS: NIFEdipine 10 MG Capsule 30 MG PO (12:16)
[2019-12-09 12:32] LABS: Color, Urine Yellow (Yellow); Glucose, Dipstick Normal (Normal); Ketone-Dipstick Negative (Negative); Leukocyte Esterase-Dipstick Negative /ul (Negative); Nitrite-Dipstick Negative (Negative); Occult Blood-Urine Negative /ul (Negative); Protein-Dipstick Negative (Negative); Specific Gravity, Urine 1.015 (1.002-1.030); Urine Bilirubin Dipstick Negative (Negative); Urine Clarity Sl. Cloudy (Clear); Urine Urobilinogen Normal (Normal); Urine pH 6.5 (5.0 - 8.0)
[2019-12-09 13:00] LABS: Absolute Lymphocyte Count 1.88 X10^3/uL (0.83-4.51); Absolute Neutrophil Count 9.6 X10^3/uL (2.0-7.7); Basophil# 0.04 X10^3/uL; Basophil% 0.3 % (0-1); Eosinophils% 1.6 % (0-5); Hematocrit 32.9 % (37-47); Hemoglobin 10.6 g/dL (12.0-15.0); Lymphocyte # 1.88 X10^3/ul (4.0); Lymphocyte % 14.7 % (19-41); Mean Corp Hgb Conc 32.2 g/dL (32-36); Mean Corpuscular Volume 86.8 fL (81-99); Mean Platelet Vol. 9.3 fl (6.2-12.0); Monocyte# 0.98 X10^3/uL; Monocyte% 7.7 % (0-10); NRBC Flagged by Analyzer 0 % (0-5); Neutrophil # 9.59 X10^3/uL (2.7-7.7); Neutrophil % 74.9 % (47-70); Platelet Count 327 K/mm3 (150-450); RBC Distribution Width CV 17.2 % (11.6-14.6); RBC Distribution Width SD 54.7 fl (35.1-43.9); Red Blood Count 3.79 M/mm3 (4.2-5.4); White Blood Count 12.8 K/mm3 (4.4-11.0)
[2019-12-09] MEDS: Lactated Ringers 1,000 ML 100 ML IV ×2 (13:26→23:03)
--- NOTE | 2019-12-09 14:31 | US_ITS ---
STUDY: SECOND AND THIRD TRIMESTER OBSTETRICAL ULTRASOUND REASON FOR EXAM: Female, 39 years old GROWTH LMP: 04/18/2019. TECHNIQUE: Transabdominal TECHNICAL QUALITY: Adequate. PRIOR ULTRASOUND: Comparison is made with prior study dated 09/21/2019. FINDINGS: There is a single intrauterine fetus. The fetus is in a cephalic presentation. There is demonstrated cardiac activity with a heart rate of 1.9 bpm. There is a normal amniotic fluid volume. The largest amniotic fluid pocket measures 6.1 cm. The amniotic fluid index (TYESHA) is 17.8 cm. The placenta is anterior in location and is not low lying. There are Grade 1 placental changes. The cervix measures 4.2 cm in length. The adnexal regions are not visualized. BIOMETRY: BPD: 9 cm: 36 weeks, 4 days HC: 32.5 cm: 36 weeks, 6 days AC: 34.0 cm: 38 weeks, 0 days FL: 6.4 cm: 33 weeks, 1 days CI: 82% FL/BPD: 71% FL/HC: FL/AC: 19% HC/AC: 0.96 age by current US: 36 weeks, 1 days. ISIAH by current US: 01/05/2020. Estimated weight: 2955 grams, +/- 431 grams, 90 %. age by prior US: 33 weeks, 6 days. ISIAH by prior US: 01/21/2020. Age by LMP: 33 weeks, 4 days. ISIAH by LMP: 01/23/2020. US/OB Limited With Biometrics IMPRESSION: Single live uterine gestation with images to show age of 33 weeks and 6 days. The measurements obtained today are in the upper normal expected range. Electronically Signed: Luca Schaefer, at 15:27 EDT , Service support ,
[2019-12-09] MEDS: Acetaminophen 500 MG Tablet 1000 MG PO (15:38)
[2019-12-09] MEDS: NIFEdipine 10 MG Capsule PO ×2 (16:27→20:57)
--- NOTE | 2019-12-09 18:07 | PCM.HP.OB ---
- Problem List (1) Threatened labor Status: Acute (2) Iron (Fe) deficiency anemia Status: Acute Comment: IV venofer wkly x 3 wks (3) History of oligohydramnios Status: Acute Comment: growth at 36 weeks (4) History of shoulder dystocia in prior Status: Acute Comment: clavicle fracture, 9lb 12 ounces. previous 8lbs 6 ounces without issues. counseled regarding recurrence risk, plan delivery modality dependent on EFW. Plan growth at 36w. (5) Obesity affecting Status: Acute Comment: ordered nutrition consult, encouraged healthy weight gain. nl 1 tm glucola. (6) Rh negative status during Status: Acute Comment: rhogam given at 28 weeks or if bleeding (7) Status: Acute Qualifiers: Comment: NIPT low risk. carrier declined. ntd screening declined. anatomy reviewed/normal. (8) AMA (advanced maternal age) multigravida 35+ Status: Acute Comment: PRR ISIAH: 01/23/20 GIRL PC: Briana Li Kirara, Joseph, Jase BF: Lucas (9) UTI (urinary tract infection) during Status: Acute Comment: treated. FARHAT neg. (10) Asthma Status: Chronic Comment: sees Dr. Nix- inhalers PRN; taking singular QD (11) Anxiety and depression Status: Acute Comment: encouraged counseling, celexa 40 daily History Date of Admission: 12/09/19 Final ISIAH: 01/23/20 Final ISIAH Source: US <20 weeks Gestational age: 33 Weeks and 4 Days History of this : This is a 39 year-old, G 6, P 5, at 33 weeks gestational age admitted for threatened labor. She presented to the office this morning with tightening in her abdomen associated with painful back pain. Pains were occurring approximately every 5 to 7 minutes. Patient reported that pain was similar to prior episodes of labor and prior pregnancies. She has a history of labor at approximately 32 weeks and 3 of her prior pregnancies. She does have 5 prior term vaginal deliveries. On evaluation in the office she was found to be fartun approximately every 10 minutes. Her cervix was closed when she was evaluated in the office. As she appeared very uncomfortable with contractions, the decision was made to send her to OB triage for further evaluation. Upon initial examination in triage which is approximately 1 hour after her examination in the office she was found to have gone from closed to 1 cm dilation. She was fartun approximately every 5 to 7 minutes and appeared very uncomfortable with contractions. The decision was made at this time to admit her for observation for threatened labor. Patient declines any vaginal bleeding, leakage of fluid, and decreased movement. Did report some increased vaginal discharge in the office. Denies dysuria. Medical History: Medical History (Last Reviewed 12/09/19 @ 09:45 by Radha Jimenez) Asthma (Chronic) J45.[address] Nix- inhalers PRN; taking singular QD Anxiety and depression (Acute) F41.9, F32.9 encouraged counseling, celexa 40 daily GERD (gastroesophageal reflux disease) (Resolved) K21.9 Surgical History: Surgical History (Last Reviewed 12/09/19 @ 09:45 by Radha Jimenez) Hx of appendectomy (Resolved) Z90.49 Hx of cholecystectomy (Resolved) Z90.49 Allergies ampicillin Allergy (Verified 12/09/19 11:20) Itching Fish Containing Products Allergy (Verified 12/09/19 11:20) Shortness of breath Penicillins [PCN] Allergy (Verified 12/09/19 11:20) Shortness of breath clindamycin Adverse Reaction (Verified 12/09/19 11:20) Pain in joints Home Medications: Home Medications Pantoprazole Sodium [Protonix] 40 mg PO DAILY 03/30/13 Citalopram [Celexa] 40 mg PO DAILY 05/09/13 vitamin no.115-iron 29 mg-folic acid 1 mg chewable tablet 1 tab PO DAILY #30 tab 06/18/19 albuterol sulfate 90 mcg/actuation aerosol inhaler 2 puff INHALATION Q4H PRN #1 ea 06/22/19 budesonide-formoterol HFA 160 mcg-4.5 mcg/actuation aerosol inhaler 2 puff INHALATION BID #1 ea 06/22/19 montelukast 10 mg tablet 10 mg PO DAILY #30 tab 06/22/19 Smoking Status: Former smoker Alcohol: None Number of Fetus(es): 1 NST - FHR Rate Baby A Baseline: 120 Variability:: Moderate Accelerations:: 15 x 15 Decelerations:: None NST Reactive:: Yes FHR Category:: Category I Uterine Activity:: q5-15 minutes History Past Pregnancies: Pregancy History 6 Elective abortions Hx Para 5 Spontaneous abortions Hx # Term Pregnancies Ectopic pregnancies Hx # Pregnancies Multiple births # of living children 5 Past Pregnancies Del. Date Name GA/Weeks Outcome Route Bth Weight Infant Gen Labor Lgth Anesthesia Del Locatn Provider FOB Unknown 2001- Guillermo 38 live - full term 8lbs 1oz Male none [facility] Bellow Unknown dl- 2004 39 live - full term 7lbs 4oz Female epidural [facility] [place]OU Unknown 2006- Kir 39 live - full term 7LBS 14OZ Female epidural [facility] JOSÉ MANUEL Unknown 37 live - full term 8LBS 7OZ Male epidural [facility] RAMESH Unknown 38 live - full term 9LBS 12OZ Male none [facility] JOSÉ MANUEL Delivery Date: On 06/25/19 @ 13:26 Vielka Conde labor at 32 weeks Delivery Date: On 06/25/19 @ 13:27 Vielka Conde NO COMPLICATIONS Delivery Date: On 06/25/19 @ 13:28 Vielka Conde IOL- OLIGO Delivery Date: On 06/25/19 @ 13:30 Vielka Conde LABOR AT 32 WEEKS, WENT TO [facility] [place], IOL OLIGO Delivery Date: On 06/25/19 @ 13:33 Vielka Conde BROKEN LEFT CLAVICLE Labs: Mom's Current Diagnoses Dorsalgia, unspecified 12/09/19 Other specified diseases and conditions complicating , childbirth and the puerperium 12/09/19 Mom's Microbiology 12/09/19 14:07 Genital vaginal Gram Stain - Final 12/09/19 14:07 Genital vaginal Genital Culture - Pending 12/09/19 14:07 Urine, Random Urine Culture - Pending 12/09/19 11:50 Urine, Clean Catch Urine Culture - Pending Mom's Problem List Problem Status Onset Code Threatened labor Acute O47.00 Mom's Labs & Results 12/09/19 12/09/19 12/09/19 11:50 12:30 12:30 WBC 12.8 H RBC 3.79 L Hgb 10.6 L Hct 32.9 L MCV 86.8 MCH 28.0 MCHC 32.2 RDW Std Deviation 54.7 H RDW Coeff of Lamine 17.2 H Plt Count 327 MPV 9.3 Immature Gran % (Auto) 0.800 Neut % (Auto) 74.9 H Lymph % (Auto) 14.7 L [place] % (Auto) 7.7 Eos % (Auto) 1.6 Baso % (Auto) 0.3 Absolute Neuts (auto) 9.6 H Absolute Lymphs (auto) 1.88 Nucleated RBC % 0 Urine Color Yellow Urine Clarity Sl. Cloudy Urine pH 6.5 Ur Specific [place] 1.015 Urine Protein Negative Urine Glucose (UA) Normal Urine Ketones Negative Urine Occult Blood Negative Urine Nitrite Negative Urine Bilirubin Negative Urine Urobilinogen Normal Ur Leukocyte Esterase Negative Group B Strep DNA Specimen Comment Blood Type O NEGATIVE Antibody Screen Not Reportable 12/09/19 12/09/19 12/09/19 12:30 12:30 18:00 WBC RBC Hgb Hct MCV MCH MCHC RDW Std Deviation RDW Coeff of L[place] Plt Count MPV Immature Gran % (Auto) Neut % (Auto) Lymph % (Auto) [place] % (Auto) Eos % (Auto) Baso % (Auto) Absolute Neuts (auto) Absolute Lymphs (auto) Nucleated RBC % Urine Color Urine Clarity Urine pH Ur Specific [place] Urine Protein Urine Glucose (UA) Urine Ketones Urine Occult Blood Urine Nitrite Urine Bilirubin Urine Urobilinogen Ur Leukocyte Esterase Group B Strep DNA Pending Pending Specimen Comment Pending Pending Blood Type Antibody Screen NEGATIVE Social History Smoking Status Former smoker Review of Systems Constitutional: Denies: Chills, Fever HEENT: Denies: Head Aches Cardiovascular: Denies: Chest Pain, Light Headedness, Palpitations Respiratory: Denies: Cough, Shortness of Breath Gastrointestinal: Reports: Abdominal Pain. Denies: Nausea, Vomiting Genitourinary: Denies: Dysuria Gynecological: Denies: Vaginal bleeding, Vaginal discharge, Vaginal itching Neurological: Denies: Numbness, Tingling Psychiatric: Denies: Anxiety, Depression Physical Exam Vitals: Vital Signs Temp Pulse BP Pulse Ox 98.5 F 106 H 131/68 H 95 12/09/19 11:05 12/09/19 16:31 12/09/19 16:31 12/09/19 13:10 General: Alert, Oriented x3, Cooperative, No apparent distress, Well developed, Well nourished HEENT: Atraumatic, PERRLA, EOMI, Normocephalic Cardiovascular: Regular rate Lungs: Normal air movement Abdomen: Soft, Non Tender, Non-Distended, Gravid, Appropriate for Gestational Age Extremities:: No edema Neurological: Cranial nerves II-XII grossly intact, Deep Tendon Reflexes 2+/4 and Symmetrical, Neuro grossly intact, Motor Exam 5/5 strength throughout [employer] HEARING: Normal external genitalia. Negative for: Vulvar lesions Estimated gestational size: Appropriate for gestational size Presentation: Cephalic Cervix Dilation (cm): 1 Station: -3 Effacement (%): 70 Assessment/Plan All Active Problems (Last Reviewed 12/09/19 @ 09:45 by aRdha Jimenez) Threatened labor (Acute) Iron (Fe) deficiency anemia (Acute) History of oligohydramnios (Acute) History of shoulder dystocia in prior (Acute) Obesity affecting (Acute) Rh negative status during (Acute) (Acute) AMA (advanced maternal age) multigravida 35+ (Acute) UTI (urinary tract infection) during (Acute) Anxiety and depression (Acute) Acute asthma exacerbation (Resolved) Avulsion of skin of left hand (Resolved) GERD (gastroesophageal reflux disease) (Resolved) H/O pre-term labor (Resolved) Hx of appendectomy (Resolved) Hx of cholecystectomy (Resolved) Leg swelling in (Resolved) Mastitis, acute (Resolved) Pharyngitis, acute (Resolved) This is a 39 year-old, G 6, P 5, at 33 weeks gestational age admitted for threatened labor. 1. Threatened labor - Patient found to have made cervical change from closed to 1 cm dilated within 1 hour of examination in the office. Patient fartun regularly and uncomfortable at that time on presentation. - Patient was given her first dose of betamethasone. - Started on Procardia for toco lysis with a 30mg loading dose with 10 mg every 4 hours maintenance. - Initially given a clear liquid diet, however she did not make further further cervical change and was therefore advanced to a general diet. - Kept on continuous monitoring. - Contractions began to decrease in intensity and frequency following her loading dose of the Procardia. - As she did not make further cervical change, penicillin for group B strep unknown was deferred. Group B strep swab was collected on admission. - CBC and type and screen were ordered on presentation. - Growth ultrasound was ordered to evaluate growth and fluid. - Plan to monitor patient overnight for concern for labor. Anticipate discharge to home tomorrow after second dose of steroids if patient does not make further cervical change. OBSV E&M: 95200 Observ/hosp same date L3
[2019-12-09 19:53] LABS: Group B Strep DNA By PCR POSITIVE (Negative)
[2019-12-09 19:54] LABS: Probe Check PASS
[2019-12-10] MEDS: NIFEdipine 10 MG Capsule PO ×4 (00:42→11:54)
[2019-12-10 03:01] VITALS: BP 120/57; PULSE 109; TEMP 37.2; O2SAT 96
[2019-12-10 07:30] VITALS: TEMP 37; O2SAT 98
[2019-12-10 07:31] VITALS: BP 128/61; PULSE 100
[2019-12-10] MEDS: Lactated Ringers 1,000 ML 100 ML IV (08:03)
[2019-12-10] MEDS: Betamethasone/Betamethasone 30 MG/5 ML Vial 12 MG IM (11:54)
[2019-12-10 11:59] VITALS: BP 136/71; PULSE 96; TEMP 36.8; O2SAT 98
--- NOTE | 2019-12-10 12:28 | PN.OBGYN_ITS ---
Patient Problems: Active and Suspected Problems (Last Reviewed 12/09/19 @ 09:45 by Radha Jimenez) Threatened labor (Acute) Subjective: Patient admitted for threatened labor. Still having irregular contractions on the toco, but no longer painful. Was able to sleep through contractions overnight. Denies LOF, VB, DFM. - Physical Exam Vitals/I&O's: Vital Signs Temp Pulse BP Pulse Ox 98.6 F 96 136/71 H 98 12/10/19 07:30 12/10/19 11:59 12/10/19 11:59 12/10/19 07:30 Weight: 235 lb Body Mass Index (BMI) 36.8 Intake and Output for Last 24 Hours 12/08/19 12/09/19 12/10/19 23:59 23:59 23:59 Intake Total 2806.88 / 2806.88 1295 / 1295 Balance 2806.88 / 2806.88 1295 / 1295 General: Alert, Oriented x3, Cooperative, No apparent distress, Well developed, Well nourished HEENT: Atraumatic, PERRLA, EOMI, Normocephalic Oral: Moist Mucosa Neck: Supple Lungs: Normal air movement Cardiovascular: Regular rate Abdomen: Soft, Non Tender, Non-Distended, Gravid, Appropriate for Gestational Age Skin: No rashes Neurological: Cranial nerves II-XII grossly intact, Deep Tendon Reflexes 2+/4 and Symmetrical, Neuro grossly intact Psych/Mental Status: Normal Affect, Appropriate, Alert and oriented to time, place, person, mood and affect Microbiology Past 72 Hours 12/09/19 14:07 Genital vaginal Gram Stain - Final Laboratory Results 12/09/19 11:50: Urine Color Yellow, Urine Clarity Sl. Cloudy, Urine pH 6.5, Ur Specific [place] 1.015, Urine Protein Negative, Urine Glucose (UA) Normal, Urine Ketones Negative, Urine Occult Blood Negative, Urine Nitrite Negative, Urine Bilirubin Negative, Urine Urobilinogen Normal, Ur Leukocyte Esterase Negative 12/09/19 12:30: WBC 12.8 H, RBC 3.79 L, Hgb 10.6 L, Hct 32.9 L, MCV 86.8, MCH 28.0, MCHC 32.2, RDW Std Deviation 54.7 H, RDW Coeff of Lamine 17.2 H, Plt Count 327, MPV 9.3, Immature Gran % (Auto) 0.800, Neut % (Auto) 74.9 H, Lymph % (Auto) 14.7 L, [place] % (Auto) 7.7, Eos % (Auto) 1.6, Baso % (Auto) 0.3, Absolute Neuts (auto) 9.6 H, Absolute Lymphs (auto) 1.88, Nucleated RBC % 0 12/09/19 12:30: Blood Type O NEGATIVE, Antibody Screen Not Reportable 12/09/19 12:30: Group B Strep DNA Cancelled, Specimen Comment Cancelled 12/09/19 12:30: Antibody Screen NEGATIVE 12/09/19 18:00: Group B Strep DNA POSITIVE H, Specimen Comment Not Reportable Current Medications Lactated Ringer's () 1,000 mls @ 100 mls/hr IV .Q10H [facility] Last Infusion: 12/10/19 12:00 Dose: Infused Documented by: Nifedipine (Procardia) 10 mg PO Q4H [facility] Last Admin: 12/10/19 11:54 Dose: 10 mg Documented by: Medical Necessity - Tobacco Use Smoking Status: Former smoker Assessment/Plan All Active Problems (Last Reviewed 12/09/19 @ 09:45 by Radha Jimenez) Threatened labor (Acute) Iron (Fe) deficiency anemia (Acute) History of oligohydramnios (Acute) History of shoulder dystocia in prior (Acute) Obesity affecting (Acute) Rh negative status during (Acute) (Acute) AMA (advanced maternal age) multigravida 35+ (Acute) UTI (urinary tract infection) during (Acute) Anxiety and depression (Acute) Acute asthma exacerbation (Resolved) Avulsion of skin of left hand (Resolved) GERD (gastroesophageal reflux disease) (Resolved) H/O pre-term labor (Resolved) Hx of appendectomy (Resolved) Hx of cholecystectomy (Resolved) Leg swelling in (Resolved) Mastitis, acute (Resolved) Pharyngitis, acute (Resolved) 39yo at 33 weeks admitted for threatened labor - Contractions no longer intense and irregular in frequency - NST reactive - second dose of BMZ at noon today - Growth shows EFW in 90th%ile - Plan to discharge to home today with good return precautions Multi Select Codes - Visit Charges Observation E&M Codin Observation care discharge
--- NOTE | 2019-12-10 12:34 | DCINST_ITS ---
- Discharge Diagnoses Current Active Problems: Current Active and Chronic Problems (Last Reviewed 12/09/19 @ 09:45 by Radha Jimenez) Threatened labor (Acute) You will use the following diet at home:: No restrictions Your food should be the consistency of: Regular Discharge Activity: Return to Normal Activity May resume sexual activity in: No Restrictions Weight Bearing Status: Weight bearing as tolerated Call your doctor if your incision/area has: Increased Pain/ Swelling Call your doctor if you observe: Fever of 101 or Higher, Shortness of breath, - - Contractions increasing in intensity or strength, leakage of fluid, vaginal bleeding or decreased movement. Instructions: Understanding Labor Allergies/Adverse Reactions: Allergies ampicillin Allergy (Verified 12/09/19 11:20) Itching Fish Containing Products Allergy (Verified 12/09/19 11:20) Shortness of breath Penicillins [PCN] Allergy (Verified 12/09/19 11:20) Shortness of breath clindamycin Adverse Reaction (Verified 12/09/19 11:20) Pain in joints Medications to take at Discharge Pantoprazole Sodium [Protonix] 40 mg PO DAILY 03/30/13 Citalopram [Celexa] 40 mg PO DAILY 05/09/13 vitamin no.115-iron 29 mg-folic acid 1 mg chewable tablet 1 tab PO DAILY #30 tab 06/18/19 albuterol sulfate 90 mcg/actuation aerosol inhaler 2 puff INHALATION Q4H PRN #1 ea 06/22/19 budesonide-formoterol HFA 160 mcg-4.5 mcg/actuation aerosol inhaler 2 puff INHALATION BID #1 ea 06/22/19 montelukast 10 mg tablet 10 mg PO DAILY #30 tab 06/22/19 NIFEdipine [Procardia] 10 mg PO Q4H 1 Days #6 cap 12/10/19 The following prescriptions were given: NIFEdipine [Procardia] 10 mg PO Q4H 1 Days #6 cap Transmission Status: Pending to [facility] Primary Care Physician: Surendra Chavarria DO [Primary Care Provider] - Drea Lin MD [STAFF PHYSICIAN] - Within 1 Week Test Results: Test results from this visit will be discussed in further detail at your follow- up appointment, if applicable.
== END 2019-12-10 12:50 | disposition home or self-care (01) ==
LOC: WPOUT 12-10 07:21 → WP 12-10 07:21
PROVIDERS: Admitting Provider Obstetrics & Gynecology; PCP Preventive Medicine Occupational Medicine; Referring Provider Obstetrics & Gynecology; Visit Provider Obstetrics & Gynecology
DX: O60.03 Preterm labor without delivery, third trimester (principal); Z3A.33 33 weeks gestation of pregnancy; D50.9 Iron deficiency anemia, unspecified; O99.013 Anemia complicating pregnancy, third trimester; O99.213 Obesity complicating pregnancy, third trimester; E66.9 Obesity, unspecified; O09.523 Supervision of elderly multigravida, third trimester; O99.513 Diseases of the respiratory system complicating pregnancy, third trimester; J45.909 Unspecified asthma, uncomplicated; O99.343 Other mental disorders complicating pregnancy, third trimester; F41.9 Anxiety disorder, unspecified; F32.9 Major depressive disorder, single episode, unspecified; Z87.891 Personal history of nicotine dependence
CPT/HCPCS: 96360; 96361 ×2; 96372 ×2; 36415; 59025; 59050; 76816; 81002; 85025; 86850; 86900; 86901; 87070; 87077; 87081; 87086; 87088; 87186; 87205; 87653; 99218; J7120; G0378; J0702

== ENCOUNTER → 2019-12-27 12:39 | Outpatient (CLI) | payer OTHER, MEDICAID, SELFPAY ==
[2019-11-26 15:58] VITALS: BMI 35.6
[2019-12-21 14:41] VITALS: BMI 36.8
--- NOTE | 2019-12-27 12:42 | US_ITS ---
STUDY: SECOND AND THIRD TRIMESTER OBSTETRICAL ULTRASOUND REASON FOR EXAM: Female, 39 years old. Growth. LMP: 04/05/2019. TECHNIQUE: Transabdominal TECHNICAL QUALITY: Adequate. PRIOR ULTRASOUND: 06/15/2019, 09/08/2019, 09/21/2019 and 12/09/2019 FINDINGS: There is a single intrauterine fetus. The fetus is in a cephalic presentation. There is demonstrated cardiac activity with a heart rate of 144 bpm. There is a normal amniotic fluid volume. The largest amniotic fluid pocket measures 5.35 cm. The amniotic fluid index (TYESHA) is 14.42 cm. The placenta is anterior in location and is not low lying. There are Grade 1 placental changes. The cervix measures 4.9 cm in length. The adnexal regions are not visualized. BIOMETRY: BPD: 9.45 cm: 38 weeks, 3 days HC: 34.37 cm: 39 weeks, 4 days AC: 37.88 cm: 41 weeks, 5 days FL: 7.07 cm: 36 weeks, 1 days CI: 80.08 FL/BPD: 74.78 FL/HC: 20.56 FL/AC: 18.66 HC/AC: 0.91 age by current US: 38 weeks, 6 days. ISIAH by current US: 01/04/2020. Estimated weight: 3984 grams, +/- 590 grams, 99.9 %. age by initial US: 36 weeks, 0 days. ISIAH by initial US: 01/24/2020. age by most recently US: 38 weeks, 5 days. ISIAH by most recent US: 01/05/2020. Age by LMP: 38 weeks, 0 days. ISIAH by LMP: 01/10/2020. US/OB Limited With Biometrics IMPRESSION: 1. Live single intrauterine at 38 weeks, 6 days. ISIAH is 01/04/2020. There is adequate interval growth since the most recent ultrasound. 2. EFW of 3984 g. This is at the 100th percentile. 3. TYESHA 14.42 cm 4. Anterior grade 1 placenta. 5. Vertex presentation. Electronically Signed: Davie Albert DO at 16:13 EDT Tel [phone], Service support ,
== END ==
PROVIDERS: PCP Preventive Medicine Occupational Medicine; Referring Provider Obstetrics & Gynecology; Visit Provider Obstetrics & Gynecology
DX: Z36.9 Encounter for antenatal screening, unspecified (principal); Z87.59 Personal history of other complications of pregnancy, childbirth and the puerperium; Z3A.38 38 weeks gestation of pregnancy
CPT/HCPCS: 76816

== ENCOUNTER 2019-12-28 18:35 | Outpatient (CLI) | payer OTHER, MEDICAID, SELFPAY ==
[2019-12-21 14:41] VITALS: BMI 36.8
[2019-12-28] VITALS (13 sets, daily range): BP systolic 132–157; BP diastolic 63–82; PULSE 100–117; TEMP 37.1–37.4; O2SAT 99; BMI 36.6
[2019-12-28 20:01] LABS: Hematocrit 32.8 % (37-47); Hemoglobin 10.4 g/dL (12.0-15.0); Mean Corp Hgb Conc 31.7 g/dL (32-36); Mean Corpuscular Hgb 27.1 pg (27.0-32.0); Mean Corpuscular Volume 85.4 fL (81-99); Mean Platelet Vol. 9.1 fl (6.2-12.0); Platelet Count 334 K/mm3 (150-450); RBC Distribution Width CV 16.9 % (11.6-14.6); RBC Distribution Width SD 52.7 fl (35.1-43.9); Red Blood Count 3.84 M/mm3 (4.2-5.4); White Blood Count 13.4 K/mm3 (4.4-11.0)
[2019-12-28 20:08] LABS: International Normalized Ratio 1.1; Partial Thromboplast Time 26.5 Seconds (24.1-36.2); Prothrombin Time (Protime)PT. 13.9 SECONDS (11.7-14.9)
[2019-12-28 20:10] LABS: AST(SGOT) 12 U/L (15-37); Alanine Aminotransfer ALT/SGPT 19 U/L (13-56); Creatinine, Serum 0.52 mg/dL (0.55-1.02); EST Glomerular Filtration Rate 142 mL/min (>60); Est Glom Filt Rate - Afr Amer 172 mL/min (>60); Estimated Creatinine Clearance 144.05 ml/min
[2019-12-28 20:23] LABS: Protein, Urine (Random) 18.8 mg/dL (<11.9); Protein:Creat Ratio 133 mg/g CRE (0-200)
--- NOTE | 2019-12-29 20:49 | OB.TRI.PN ---
Progress Notes Date of Service: 12/28/19 Progress Note: Patient is a 39-year-old G6, P5 at 36 weeks gestation who presented to OB triage after her son who weighs approximately 100 pounds fell directly onto her abdomen. Patient denies bleeding. Patient does report occasional contractions, however these are unchanged from what she has been having for multiple weeks. Denies significant abdominal pain. Denies leakage of fluid. Denies decreased movement. Patient was monitored in triage for 4 hours. monitoring was reassuring throughout this time. While in OB triage, her blood pressures were persistently in the mild range. She denies headaches, blurred vision, chest pain, shortness of breath. Preeclampsia labs were performed and were negative. She was discharged home in stable condition. She has an appointment to follow-up in the office on . Laboratory Studies: Laboratory Tests 12/28/19 12/28/19 12/28/19 Range/Units 20:05 19:45 19:45 WBC (4.4-11.0) K/mm3 RBC (4.2-5.4) M/mm3 Hgb (12.0-15.0) g/dL Hct (37-47) % MCV (81-99) fL MCH (27.0-32.0) pg MCHC (32-36) g/dL RDW Std Deviation (35.1-43.9) fl RDW Coeff of Lamine (11.6-14.6) % Plt Count (150-450) K/mm3 MPV (6.2-12.0) fl PT 13.9 (11.7-14.9) SECONDS INR 1.1 APTT 26.5 (24.1-36.2) Seconds Creatinine 0.52 L (0.55-1.02) mg/dL Estim Creat Clear Calc 144.05 ml/min Est GFR (MDRD) Af Amer 172 (>60) mL/min Est GFR (MDRD) Non-Af 142 (>60) mL/min Uric Acid 3.0 (2.6-6.0) mg/dL AST 12 L (15-37) U/L ALT 19 (13-56) U/L U Random Total Protein 18.8 H (<11.9) mg/dL Urine Creatinine 141.00 (NO RANGE EST.) mg/dL Protein/Creatinin Ratio 133 (0-200) mg/g CRE 12/28/19 Range/Units 19:45 WBC 13.4 H (4.4-11.0) K/mm3 RBC 3.84 L (4.2-5.4) M/mm3 Hgb 10.4 L (12.0-15.0) g/dL Hct 32.8 L (37-47) % MCV 85.4 (81-99) fL MCH 27.1 (27.0-32.0) pg MCHC 31.7 L (32-36) g/dL RDW Std Deviation 52.7 H (35.1-43.9) fl RDW Coeff of Lamine 16.9 H (11.6-14.6) % Plt Count 334 (150-450) K/mm3 MPV 9.1 (6.2-12.0) fl PT (11.7-14.9) SECONDS INR APTT (24.1-36.2) Seconds Creatinine (0.55-1.02) mg/dL Estim Creat Clear Calc ml/min Est GFR (MDRD) Af Amer (>60) mL/min Est GFR (MDRD) Non-Af (>60) mL/min Uric Acid (2.6-6.0) mg/dL AST (15-37) U/L ALT (13-56) U/L U Random Total Protein (<11.9) mg/dL Urine Creatinine (NO RANGE EST.) mg/dL Protein/Creatinin Ratio (0-200) mg/g CRE Multi Select Codes - Urinary/Genital Urinary/Genital CPT Codes: 59578-61 non-stress test Interp
== END 2019-12-28 22:50 | disposition home or self-care (01) ==
LOC: WPOUT 18:38 → OBT 18:38
PROVIDERS: PCP Preventive Medicine Occupational Medicine; Visit Provider Obstetrics & Gynecology
DX: O09.523 Supervision of elderly multigravida, third trimester (principal); Z3A.36 36 weeks gestation of pregnancy
CPT/HCPCS: 36415; 59025; 59050; 82565; 82570; 84156; 84450; 84460; 84550; 85027; 85610; 85730; 94760; 99218; G0378

== ENCOUNTER → 2019-12-30 13:17 | Outpatient (CLI) | payer OTHER, MEDICAID, SELFPAY ==
[2019-12-30 10:51] VITALS: BMI 36.6
[2019-12-30 14:46] LABS: Absolute Lymphocyte Count 1.79 X10^3/uL (0.83-4.51); Absolute Neutrophil Count 10.1 X10^3/uL (2.0-7.7); Basophil# 0.04 X10^3/uL; Basophil% 0.3 % (0-1); Eosinophil# 0.26 X10^3/uL; Hemoglobin 10.9 g/dL (12.0-15.0); Lymphocyte # 1.79 X10^3/ul (4.0); Lymphocyte % 13.7 % (19-41); Mean Corp Hgb Conc 31.1 g/dL (32-36); Mean Corpuscular Hgb 27.3 pg (27.0-32.0); Mean Corpuscular Volume 87.7 fL (81-99); Mean Platelet Vol. 9.4 fl (6.2-12.0); Monocyte% 5.4 % (0-10); NRBC Flagged by Analyzer 0 % (0-5); Neutrophil # 10.14 X10^3/uL (2.7-7.7); Neutrophil % 77.8 % (47-70); Platelet Count 355 K/mm3 (150-450); RBC Distribution Width CV 16.6 % (11.6-14.6); RBC Distribution Width SD 53.4 fl (35.1-43.9); Red Blood Count 3.99 M/mm3 (4.2-5.4)
[2019-12-30 15:11] LABS: ALB/GLOB Ratio 0.6 RATIO (0.9-2.4); AST(SGOT) 19 U/L (15-37); Alanine Aminotransfer ALT/SGPT 23 U/L (13-56); Albumin, Serum 2.5 g/dL (3.2-5.0); Alkaline Phosphatase 165 U/L (45-117); Anion Gap 9 (5-15); BUN 7 mg/dL (7-18); BUN/Creat Ratio 12.6 RATIO (10-20); Calcium,Total 8.4 mg/dL (8.5-10.1); Chloride 105 mmol/L (98-107); Creatinine, Serum 0.55 mg/dL (0.55-1.02); EST Glomerular Filtration Rate 131 mL/min (>60); Est Glom Filt Rate - Afr Amer 159 mL/min (>60); Globulin 4.3 g/dL (2.2-4.2); Glucose 117 mg/dL (74-106); Potassium 3.2 mmol/L (3.5-5.1); Protein, Total 6.8 g/dL (6.4-8.2); Sodium Level 137 mmol/L (136-145)
== END ==
PROVIDERS: PCP Preventive Medicine Occupational Medicine; Referring Provider Obstetrics & Gynecology; Visit Provider Obstetrics & Gynecology
DX: O99.013 Anemia complicating pregnancy, third trimester (principal); D64.9 Anemia, unspecified; O16.3 Unspecified maternal hypertension, third trimester; Z3A.00 Weeks of gestation of pregnancy not specified
CPT/HCPCS: 36415; 80053; 85025; 86850; 86870; 86900; 86901

== ENCOUNTER 2020-01-04 06:57 | Inpatient (IN) | payer OTHER, MEDICAID, SELFPAY ==
[2019-12-30 10:51] VITALS: BMI 36.6
[2020-01-04] VITALS (32 sets, daily range): BP systolic 122–164; BP diastolic 59–103; PULSE 90–117; RESP 16; TEMP 36.5–37.4; O2SAT 96–100; BMI 35.5
--- NOTE | 2020-01-04 07:27 | PCM.HPOB.BLA ---
- Problem List (1) AMA (advanced maternal age) multigravida 35+ Status: Acute Comment: PRR ISIAH: 01/23/20 GIRL PC: Briana Li Kirara, Joseph, Jase BF: Lucas (2) Anxiety and depression Status: Acute Comment: encouraged counseling, celexa 40 daily (3) GBS (group B Streptococcus carrier), +RV culture, currently Status: Acute Comment: allergy to PCN has received Keflex in the past recommend Ancef and labor (4) History of oligohydramnios Status: Acute Comment: growth at 36 weeks (5) History of shoulder dystocia in prior Status: Acute Comment: clavicle fracture, 9lb 12 ounces. previous 8lbs 6 ounces without issues. counseled regarding recurrence risk, plan delivery modality dependent on EFW. Plan growth at 36w. (6) Iron (Fe) deficiency anemia Status: Acute Comment: IV venofer wkly x 3 wks (7) Obesity affecting Status: Acute Comment: ordered nutrition consult, encouraged healthy weight gain. nl 1 tm glucola. (8) Status: Acute Qualifiers: Comment: NIPT low risk. carrier declined. ntd screening declined. anatomy reviewed/normal. (9) Rh negative status during Status: Acute Comment: rhogam given at 28 weeks or if bleeding (10) Transient hypertension of Status: Acute Comment: Persistent mild range BPs when in triage 12/27. PreE labs negative.. Recommend delivery at 37 weeks. Reviewed preeclampsia precautions. (11) Trauma during Status: Acute Comment: Seen in triage after son fell directly onto her abdomen. 4 hours of monitoring reassuring. T&S not done in triage. Done 2 days later still demonstrates Abs from rhogam. (12) UTI (urinary tract infection) during Status: Acute Comment: treated. FARHAT neg. (13) Asthma Status: Chronic Comment: sees Dr. Nix- inhalers PRN; taking singular QD History and Physical Date of Admission: 01/04/20 Intake Vital Signs 12/30/19 Height 5 ft 7 in 12/30/19 Weight: 231 lb 12/30/19 BMI 36.1 12/30/19 BP 128/90 H Intake Visit Reasons: 36 WK OB Chief Complaint: est ob Simulation Engineer Required: No Is patient in pain?: No Allergies ampicillin Allergy (Verified 12/30/19 10:51) Itching Fish Containing Products Allergy (Verified 12/30/19 10:51) Shortness of breath Penicillins [PCN] Allergy (Verified 12/30/19 10:51) Shortness of breath clindamycin Adverse Reaction (Verified 12/30/19 10:51) Pain in joints Medications Pantoprazole Sodium [Protonix] 40 mg PO DAILY 03/30/13 [History Confirmed 12/30/19] Citalopram [Celexa] 40 mg PO DAILY 05/09/13 [History Confirmed 12/30/19] vitamin no.115-iron 29 mg-folic acid 1 mg chewable tablet 1 tab PO DAILY #30 tab 06/18/19 [Rx Confirmed 12/30/19] albuterol sulfate 90 mcg/actuation aerosol inhaler 2 puff INHALATION Q4H PRN #1 ea 06/22/19 [Rx Confirmed 12/30/19] budesonide-formoterol HFA 160 mcg-4.5 mcg/actuation aerosol inhaler 2 puff INHALATION BID #1 ea 06/22/19 [Rx Confirmed 12/30/19] montelukast 10 mg tablet 10 mg PO DAILY #30 tab 06/22/19 [Rx Confirmed 12/30/19] Last Menstral Period: 04/05/19 Zika: Zika virus screening: Negative : No PFSH PFSH Medical History Asthma (Chronic) Anxiety and depression (Acute) GERD (gastroesophageal reflux disease) (Resolved) Surgical History Hx of appendectomy (Resolved) Hx of cholecystectomy (Resolved) Family History Mother ADALBERTO III (cervical intraepithelial neoplasia grade III) with severe dysplasia Social History (Updated 12/31/19 @ 04:[address] Janine Koch MD) adopted: No household members: family housing: house number of children: 5 current occupational status: employed current occupation: [employer] pets and animals: No history of recent travel: No Smoking Status: Former smoker second hand exposure: No alcohol intake: never substance use type: does not use caffeine: No what type of physical activity do you participate in: walking, bicycling, weight training frequency: 3-4 times per week seatbelt use: always do you feel safe at home: Yes additional social history: Boyfriend- Chaz Pregancy History 6 Elective abortions Hx Para 5 Spontaneous abortions Hx # Term Pregnancies Ectopic pregnancies Hx # Pregnancies Multiple births # of living children 5 Past Pregnancies Del. Date Name GA/Weeks Outcome Route Bth Weight Infant Gen Labor Lgth Anesthesia Del Locatn Provider FOB Unknown 2001- Guillermo 38 live - full term 8lbs 1oz Male none [employer] Bellow Unknown - 2004 39 live - full term 7lbs 4oz Female epidural [employer] AISSATOU Unknown 2006- 39 live - full term 7LBS 14OZ Female epidural [employer] JOSÉ MANUEL Unknown 2011- 37 live - full term 8LBS 7OZ Male epidural [employer] ADRIANASHIMA Unknown 2012- 38 live - full term 9LBS 12OZ Male none [employer] JOSÉ MANUEL Delivery Date: On 06/25/19 @ 13:26 Vielka Conde labor at 32 weeks Delivery Date: On 06/25/19 @ 13:27 Vielka Conde NO COMPLICATIONS Delivery Date: On 06/25/19 @ 13:28 Vielka Conde IOL- OLIGO Delivery Date: On 06/25/19 @ 13:30 Vielka Conde LABOR AT 32 WEEKS, WENT TO [facility], IOL OLIGO Delivery Date: On 06/25/19 @ 13:33 Vielka Conde BROKEN LEFT CLAVICLE HPI 36 WK OB: Details: ANTONELLA MAE is a 39 year old G6, P5 presents at 36 weeks 5 days for routine visit and is found to have persistent elevated blood pressures and upon review they have been high at home. She denies any current headaches or blurry vision. OB Visit ISIAH Calculator Estimated Delivery Date Method Current WG Current Estimate 01/23/20 Ultrasound #1 36w 5d Other Estimates 01/10/20 LMP (Certain) 38w 4d Expected Delivery Route/Plan Labor Preferences- labor support person: Lucas pain management options preferred: minimal intervention cut cord/dad catch: [] : [] PP control planned: Tubal ligation - title 19 signed 11/09 discussed possible routes of delivery and associated risks: [] special requests: [] Specific Issue/Plans flu vaccine: getting at work tdap vaccine: given 11/10 rhogam: 11/10 LARC form signed: 11/09 - declines movement and labor precautions reviewed. Problem list reviewed and updated with the most current plan of care details and appropriate orders placed. Relevant counseling for the gestational age provided. Continue routine care and follow up unless otherwise noted in visit notes/problem list details Initial Weight: 212 lb Date EGA Weight BP Urine Prot Glucose FHR FuHt Pres Dilation Effaced St Visit Note 08/03/19 15w 2d 216 lb 4 oz (+4 lb 4 oz) 138/88 Negative Negative 145 SM- no vb lof cramping, come bloating 09/10/19 20w 5d 224 lb (+12 lb) 130/70 Negative Negative 150 SM- no vb lof good fm no regular ctx 10/08/19 24w 5d 230 lb 8 oz (+18 lb 8 oz) 138/72 Negative Negative 145 25 SM- no vb lof good fm no regular ctx 10/25/19 27w 1d 230 lb (+18 lb) 120/82 Negative Negative 150 28 SM- no vb lof good fm no regular ctx ordered gct and discussed rhogam 11/10/19 29w 3d 231 lb (+19 lb) 128/80 Negative Negative 130 31 GP - no LOF/VB/DFM/Ctx. Increased swelling and busted varicose veins on RLE - LE dopplers ordered. Rhogam and TDAP tomorrow. 11/26/19 31w 5d 136/88 Trace Negative 155 34 SM- no vb lof good fm no regular ctx still having swelling. 12/09/19 33w 4d 235 lb 6 oz (+23 lb 6 oz) 138/82 Trace Negative 150 0 50 -3 GP - no VB, LOF, DFM. Painful contractions over the last few hours. 12/14/19 34w 2d 234 lb 2 oz (+22 lb 2 oz) 138/70 Negative Negative 145 35 1 50 -3 GP - admitted last week for PTL. Ctx now stopped. Feeling better. No LOF, VB, DFM. 12/21/19 35w 2d 230 lb (+18 lb) 132/84 Negative Negative 145 37 1 50 -3 Sm- no vb lof good fm co irregular ctx 12/30/19 36w 4d 231 lb (+19 lb) 128/90 Negative Negative 140 38 1 50 SM- discussed and recommend IOL for GHTN, discussed large EFW ACOG Third Trimester Third Trimester: Pain Management Plans and Immediate Larc Diagnostics Diagnostics Diagnostics Blood Type O NEGATIVE 12/30/19 Antibody Screen POSITIVE H 12/30/19 Glucose 1 Hr 50 gm 92 mg/dL (70-140) 10/29/19 HIV 1&2 Antibody Non-Reactive (Nonreactive) 07/05/19 Group B Strep DNA POSITIVE (Negative) H 12/09/19 Rubella IgG Antibody 61.3 IU/mL 07/05/19 Hgb 10.9 g/dL (12.0-15.0) L 12/30/19 Hct 35.0 % (37-47) L 12/30/19 RPR NONREACTIVE (NONREACTIVE) 07/05/19 Details: HIV: Urine Culture: Sequential Screen: NIPT Screen: ROS Const Reports system reviewed and no additional complaints, except as docu Card Reports system reviewed and no additional complaints, except as docu Resp Reports system reviewed and no additional complaints, except as docu GI Reports system reviewed and no additional complaints, except as docu, Reports nausea Reports system reviewed and no additional complaints, except as docu Musc Reports system reviewed and no additional complaints, except as docu Exam Const General: cooperative, healthy appearing, comfortable, anxious [facility] Head: normal to inspection Nose: external nose normal Face and sinus: normal facial exam Neck Neck: normal visual inspection, full ROM, no lymphadenopathy Thyroid: thyroid normal Chest Chest palpation & inspection: normal inspection of the chest Resp Effort & Inspection: normal respiratory effort GI Inspection: normal to inspection Palpation: soft, other (gravid uterus) Other: infant vertex and large size for gestational age approximately 8-1/2 pounds based on Jac's and recent ultrasound Other: Cervical Exam: Extrem General: pedal edema Results POC Urinalysis 2 Dip (Clinic) Office Urine Glucose Negative Last Edit by Candace Laguerre on 12/30/19 10:57 Office Urine Protein Negative Last Edit by Candace Laguerre on 12/30/19 10:57 Assessment & Plan Problems 1. Transient hypertension of O13.9 Persistent mild range BPs when in triage 10/6. PreE labs negative.. Recommend delivery at 37 weeks. Reviewed preeclampsia precautions. 2. GBS (group B Streptococcus carrier), +RV culture, currently O99.820 allergy to PCN has received Keflex in the past recommend Ancef and labor 3. Iron (Fe) deficiency anemia D50.9 IV venofer wkly x 3 wks 4. History of oligohydramnios Z87.59 growth at 36 weeks 5. History of shoulder dystocia in prior Z87.59 clavicle fracture, 9lb 12 ounces. previous 8lbs 6 ounces without issues. counseled regarding recurrence risk, plan delivery modality dependent on EFW. Plan growth at 36w. 6. Obesity affecting O99.210 ordered nutrition consult, encouraged healthy weight gain. nl 1 tm glucola. 7. Rh negative status during O26.899; Z67.91 rhogam given at 28 weeks or if bleeding 8. Z34.90 NIPT low risk. carrier declined. ntd screening declined. anatomy reviewed/normal. 9. AMA (advanced maternal age) multigravida 35+ O09.529 PRR ISIAH: 01/23/20 GIRL PC: Briana Li, Kenton, Bunny Corley BF: Lucas 10. UTI (urinary tract infection) during O23.40 treated. FARHAT neg. 11. Asthma J45.[address] Nix- inhalers PRN; taking singular QD 12. Anxiety and depression F41.9; F32.9 encouraged counseling, celexa 40 daily Plan Patient presents IOL, plan management for with Pitocin Andrew bulb and then AROM PRN. Pain management: Open to epidural if needed but prefers minimal intervention. GBS positive plan Ancef to start in the morning and plan Pitocin to start 3 to 4 hours after.. Management of any complications: Gestational hypertension recommend induction of labor. History of shoulder associated with almost 10 pound infant. Estimated weight 8-1/2 pounds which she has delivered previous infant at the side without issue. The increased for shoulder dystocia due to macrosomia and history of shoulder dystocia was discussed with the patient. Shoulder dystocia carries risk of injury including permanent neurologic injury, brachial nerve injury, fracture, or . After counseling the patient she chooses to proceed with vaginal delivery. I have reviewed the [facility] and made any clinically relevant updates. Orders Orders: POC Urinalysis 2 Dip (Clinic) 12/30/19 OB NST 12/30/19 O09.529, Z87.59 Comprehensive Metabolic Profil 12/30/19 O16.3 CBC W/Diff, Automated 12/30/19 O16.3 Coding Level of Care Code Off vis,est,level 4 Diagnoses Transient hypertension of O13.9 GBS (group B Streptococcus carrier), +RV culture, currently O99.820 Iron (Fe) deficiency anemia D50.9 History of oligohydramnios Z87.59 History of shoulder dystocia in prior Z87.59 Obesity affecting O99.210 Rh negative status during O26.899; Z67.91 Z34.90 AMA (advanced maternal age) multigravida 35+ O09.529 UTI (urinary tract infection) during O23.40 Asthma J45.909 Anxiety and depression F41.9; F32.9
[2020-01-04] MEDS: Cefazolin 2 GM in 0.9% Normal Saline 100 ML IV (09:10)
[2020-01-04] MEDS: Lactated Ringers 1,000 ML 50 ML IV (09:10)
[2020-01-04 09:28] LABS: Absolute Lymphocyte Count 1.83 X10^3/uL (0.83-4.51); Absolute Neutrophil Count 11.5 X10^3/uL (2.0-7.7); Basophil# 0.05 X10^3/uL; Basophil% 0.3 % (0-1); Eosinophil# 0.26 X10^3/uL; Eosinophils% 1.8 % (0-5); Hematocrit 35.8 % (37-47); Hemoglobin 11.3 g/dL (12.0-15.0); Lymphocyte # 1.83 X10^3/ul (4.0); Lymphocyte % 12.3 % (19-41); Mean Corp Hgb Conc 31.6 g/dL (32-36); Mean Corpuscular Hgb 27.1 pg (27.0-32.0); Mean Corpuscular Volume 85.9 fL (81-99); Mean Platelet Vol. 9.1 fl (6.2-12.0); Monocyte# 0.98 X10^3/uL; Monocyte% 6.6 % (0-10); NRBC Flagged by Analyzer 0 % (0-5); Neutrophil # 11.54 X10^3/uL (2.7-7.7); Neutrophil % 77.7 % (47-70); Platelet Count 372 K/mm3 (150-450); RBC Distribution Width CV 16.4 % (11.6-14.6); RBC Distribution Width SD 51.6 fl (35.1-43.9); Red Blood Count 4.17 M/mm3 (4.2-5.4); White Blood Count 14.9 K/mm3 (4.4-11.0)
[2020-01-04] MEDS: Oxytocin 30 units/NS 500 ml 30 UNITS/500 ML IV.SOLN IV (12:04)
[2020-01-04] MEDS: 0.9% Normal Saline Single 100 ML IV.SOLN. IY (12:05)
[2020-01-04] MEDS: Lactated Ringers 500 ML 999 ML IV ×2 (15:06→17:19)
[2020-01-04] MEDS: Cefazolin 1 GM/50 ML BAG IV (16:45)
[2020-01-04] MEDS: fentaNYL 100 MCG/2 ML Ampul IV (17:19)
[2020-01-04] MEDS: fentaNYL-bupivacaine (epidural) 100 ML BAG EPIDURAL (18:13)
[2020-01-04] MEDS: Oxytocin 30 units/NS 500 ml 30 UNITS/500 ML IV.SOLN 334 UNITS IV (18:41)
--- NOTE | 2020-01-04 18:47 | PCM.OPRPT ---
Problem List (1) AMA (advanced maternal age) multigravida 35+ Status: Acute Comment: PRR ISIAH: 01/23/20 GIRL PC: Briana Li Kirara, Joseph, Jase BF: uLcas (2) Anxiety and depression Status: Acute Comment: encouraged counseling, celexa 40 daily (3) GBS (group B Streptococcus carrier), +RV culture, currently Status: Acute Comment: allergy to PCN has received Keflex in the past recommend Ancef and labor (4) History of oligohydramnios Status: Acute Comment: growth at 36 weeks (5) History of shoulder dystocia in prior Status: Acute Comment: clavicle fracture, 9lb 12 ounces. previous 8lbs 6 ounces without issues. counseled regarding recurrence risk, plan delivery modality dependent on EFW. Plan growth at 36w. (6) Iron (Fe) deficiency anemia Status: Acute Comment: IV venofer wkly x 3 wks (7) Obesity affecting Status: Acute Comment: ordered nutrition consult, encouraged healthy weight gain. nl 1 tm glucola. (8) Status: Acute Qualifiers: Comment: NIPT low risk. carrier declined. ntd screening declined. anatomy reviewed/normal. (9) Rh negative status during Status: Acute Comment: rhogam given at 28 weeks or if bleeding (10) Transient hypertension of Status: Acute Comment: Persistent mild range BPs when in triage 12/27. PreE labs negative.. Recommend delivery at 37 weeks. Reviewed preeclampsia precautions. (11) Trauma during Status: Acute Comment: Seen in triage after son fell directly onto her abdomen. 4 hours of monitoring reassuring. T&S not done in triage. Done 2 days later still demonstrates Abs from rhogam. (12) UTI (urinary tract infection) during Status: Acute Comment: treated. FARHAT neg. (13) Asthma Status: Chronic Comment: sees Dr. Nix- inhalers PRN; taking singular QD Vaginal Delivery Maternal Presentation: Medically Indicated Induction iol ghtn Method of Induction: Pitocin, Andrew Bulb Medical Reason for Induction: Gestational Hypertension Amniotic Membrane Rupture Type: Artificial Amniotic Fluid Description: Clear Final ISIAH: 01/23/20 Gestational age: 37 Weeks and 2 Days Date of Procedure: 01/04/20 Pre-Operative Diagnosis: iol ghtn Post-Operative Diagnosis: same Surgery/ Procedure Performed: Spontaneous Vaginal Delivery Type of Anesthesia: Epidural Description of Procedure: Patient began pushing and delivered the head in the KAI presentation. The head was delivered atraumatically . The anterior and posterior shoulders delivered without complication followed by the rest of the infant and the infant was placed on the maternal abdomen. Delayed cord clamping was employed for approximately 60 seconds. Cord was clamped and cut and gentle traction was applied to the cord and the placenta delivered spontaneously immediately following it was noted to be intact with three-vessel cord. The perineum and vagina were inspected and noted to have no laceration. EBL was 100 cc. Patient and tolerated delivery well. Presentation: KAI Placental Delivery Description: Spontaneous Placenta Disposition: [facility] Cord Vessel Description: 3 Vessels Cord Entanglement: None Estimated Blood Loss: 100 Infant A gender: Female Episiotomy Description: None Laceration: None Medications given after delivery: IV Pitocin Complications: None Multi Select Codes - Urinary/Genital Urinary/Genital CPT Codes: 54917 Vaginal Delivery+ Care([facility])
[2020-01-04] MEDS: Naproxen 250 MG Tablet 500 MG PO (20:08)
[2020-01-04] MEDS: 0.9% Saline Lock 10 ML Syringe IV (21:12)
--- NOTE | 2020-01-04 23:48 | NURSING ---
bedside report given to princess LOYA. princess LOYA to assume care of pt at this time.
[2020-01-05] VITALS (14 sets, daily range): BP systolic 121–137; BP diastolic 76–92; PULSE 87–107; RESP 16–18; TEMP 36.2–37.2; O2SAT 93–100; BMI 35.5
[2020-01-05] MEDS: Acetaminophen 500 MG Tablet 1000 MG PO ×2 (03:38→16:08)
[2020-01-05] MEDS: Naproxen 250 MG Tablet 500 MG PO ×2 (07:52→21:17)
[2020-01-05] MEDS: Senna/Docusate Sodium 1 Tablet PO (07:52)
[2020-01-05] MEDS: 0.9% Saline Lock 10 ML Syringe IV (07:53)
[2020-01-05] MEDS: Lactated Ringers 1,000 ML 100 ML IV ×2 (12:36→15:02)
--- NOTE | 2020-01-05 13:25 | OP.PCM_ITS ---
Problem List (1) AMA (advanced maternal age) multigravida 35+ Status: Acute Comment: PRR ISIAH: 01/23/20 GIRL PC: Briana Li Kirara, Joseph, Jase BF: Lucas (2) Anxiety and depression Status: Acute Comment: encouraged counseling, celexa 40 daily (3) GBS (group B Streptococcus carrier), +RV culture, currently Status: Acute Comment: allergy to PCN has received Keflex in the past recommend Ancef and labor (4) History of oligohydramnios Status: Acute Comment: growth at 36 weeks (5) History of shoulder dystocia in prior Status: Acute Comment: clavicle fracture, 9lb 12 ounces. previous 8lbs 6 ounces without issues. counseled regarding recurrence risk, plan delivery modality dependent on EFW. Plan growth at 36w. (6) Iron (Fe) deficiency anemia Status: Acute Comment: IV venofer wkly x 3 wks (7) Obesity affecting Status: Acute Comment: ordered nutrition consult, encouraged healthy weight gain. nl 1 tm glucola. (8) Status: Acute Qualifiers: Comment: NIPT low risk. carrier declined. ntd screening declined. anatomy reviewed/normal. (9) Rh negative status during Status: Acute Comment: rhogam given at 28 weeks or if bleeding (10) Transient hypertension of Status: Acute Comment: Persistent mild range BPs when in triage 12/27. PreE labs negative.. Recommend delivery at 37 weeks. Reviewed preeclampsia precautions. (11) Trauma during Status: Acute Comment: Seen in triage after son fell directly onto her abdomen. 4 hours of monitoring reassuring. T&S not done in triage. Done 2 days later still demonstrates Abs from rhogam. (12) UTI (urinary tract infection) during Status: Acute Comment: treated. FARHAT neg. (13) Asthma Status: Chronic Comment: sees Dr. Nix- inhalers PRN; taking singular QD Report of Operation Date of Procedure: 01/05/20 Pre-Operative Diagnosis: sterilization Post-Operative Diagnosis: sterilization Surgery/Procedure Performed:: tubal ligation mini lap with filshie clips Description of Surgical Findings:: nl tubes inbound call center agent: Tevin Elizabeth Type of Anesthesia:: Spinal Special Medications: none Specimen's removed: none Drains: none Fluids Replaced: crystalloid Description of Procedure: Patient was taken to the operating room and epidural anesthesia was found to be adequate. Patient was placed in the dorsal supine position was prepped and draped in normal sterile fashion. Andrew catheter was used to drain the bladder. Infra umbilical incision was made with a scalpel after injecting with marcaine and carried through the underlying layer of the fascia with a scalpel fascial incision was extended bilaterally with Ji scissors and bowel packed away and the right fallopian tube identified confirmed to be fallopian tube by following it out to the fimbria and a Filshie clip was applied in the mid interstitial portion of the fallopian tube noting to completely transect the tube. This was repeated on the left side where the tube was identified and followed out to the fimbria and confirmed to be fallopian tube and then the mid interstitial portion of the tube was completely transected with the Filshie clip. Excellent hemostasis was noted. Fascia was closed with 0 Vicryl and skin closed with 3-0 Monocryl. No complications. Patient was taken recovery in stable condition. Grafts/Implants Used: filshie clips - Complications none - Admit VTE Documentation VTE Present on Admission: No VTE Mechan Device Prophylaxis: SCD's Multi Select Codes - Urinary/Genital Urinary/Genital CPT Codes: 21478 PPTL
--- NOTE | 2020-01-05 13:39 | DCINST_ITS ---
Discharge Diet: No Restrictions - Increase fluid intake for the next 48 hours. Discharge Activity: Return to Normal Activity, May Drive - when you are no longer taking narcotic pain medications., May Shower, May Take a Tub Bath - in 7 days May resume sexual activity in: 4-6 weeks Additional Activity Instructions:: Ambulate often the next week after surgery. Nothing in the vagina for 5 days. Call your doctor if your incision/area has: Continuous Slow Oozing, Sudden Increased Bleeding, Increased Pain/ Swelling, Increased Redness, Foul Smelling Discharge Call your doctor if you observe: Fever of 101 or Higher Additional Instructions: If you experience any of the following, contact your healthcare provider. * Bleeding that soaks a pad every hour for 2 hours * Fever 100.4 or higher * Unrelieved incision or abdominal pain * Swelling, redness, discharge or bleeding from your incision or episiotomy site * Your incision begins to separate * Problems urinating (including inability to urinate or burning while urinating). * Visual changes * Severe headache * Flu-like symptoms * Pain or redness in one of both of your breasts * Pain, warmth, tenderness or swelling in your legs, especially the calf area * Frequent nausea and vomiting * Symptoms of depression or anxiety If you experience any of the following, call 911 or go to the nearest Emergency Room. * Chest pain * Problems breathing * Seizure activity * Partial or complete paralysis of a body part, slurred speech, weakness or drooping of the face, or a sudden inability to walk or hold your balance Allergies/Adverse Reactions: Allergies ampicillin Allergy (Verified 12/30/19 10:51) Itching Fish Containing Products Allergy (Verified 12/30/19 10:51) Shortness of breath Penicillins [PCN] Allergy (Verified 12/30/19 10:51) Shortness of breath clindamycin Adverse Reaction (Verified 12/30/19 10:51) Pain in joints Medications to take at Discharge Pantoprazole Sodium [Protonix] 40 mg PO DAILY 03/30/13 Citalopram [Celexa] 40 mg PO DAILY 05/09/13 albuterol sulfate 90 mcg/actuation aerosol inhaler 2 puff INHALATION Q4H PRN #1 ea 06/22/19 Budesonide/Formoterol Fumarate [Budesonide-Formoterol 160-4.5] 2 puff INHALATION BID PRN 01/04/20 Montelukast Sodium 10 mg PO DAILY PRN 01/04/20 vitamin no.115-iron 29 mg-folic acid 1 mg chewable tablet 1 tab PO DAILY 01/04/20 Please Follow Up With: Janine Koch MD - [phone] When: Call to make an appointment with your doctor in 6 weeks. If you had elevated Blood pressure or 4th degree laceration you will need to be seen in 2 weeks. Primary Care Physician: Surendra Chavarria DO [Primary Care Provider] - Test Results: Test results from this visit will be discussed in further detail at your follow- up appointment, if applicable.
--- NOTE | 2020-01-05 13:39 | DCINST_ITS ---
Discharge Diet: No Restrictions - Increase fluid intake for the next 48 hours. Discharge Activity: Return to Normal Activity, May Drive - when you are no longer taking narcotic pain medications., May Shower, May Take a Tub Bath - in 7 days Additional Activity Instructions:: Ambulate often the next week after surgery. Nothing in the vagina for 5 days. Call your doctor if your incision/area has: Continuous Slow Oozing, Sudden Increased Bleeding, Increased Pain/ Swelling, Increased Redness, Foul Smelling Discharge Call your doctor if you observe: Fever of 101 or Higher Allergies/Adverse Reactions: Allergies ampicillin Allergy (Verified 12/30/19 10:51) Itching Fish Containing Products Allergy (Verified 12/30/19 10:51) Shortness of breath Penicillins [PCN] Allergy (Verified 12/30/19 10:51) Shortness of breath clindamycin Adverse Reaction (Verified 12/30/19 10:51) Pain in joints Medications to take at Discharge Pantoprazole Sodium [Protonix] 40 mg PO DAILY 03/30/13 Citalopram [Celexa] 40 mg PO DAILY 05/09/13 albuterol sulfate 90 mcg/actuation aerosol inhaler 2 puff INHALATION Q4H PRN #1 ea 06/22/19 Budesonide/Formoterol Fumarate [Budesonide-Formoterol 160-4.5] 2 puff INHALATION BID PRN 01/04/20 Montelukast Sodium 10 mg PO DAILY PRN 01/04/20 vitamin no.115-iron 29 mg-folic acid 1 mg chewable tablet 1 tab PO DAILY 01/04/20 Primary Care Physician: Surendra Chavarria DO [Primary Care Provider] - Test Results: Test results from this visit will be discussed in further detail at your follow- up appointment, if applicable. Please Follow Up With: Janine Koch MD - [phone]
--- NOTE | 2020-01-05 13:39 | PCM.PN.OB ---
Patient Problems: Active and Suspected Problems (Last Reviewed 12/30/19 @ 10:51 by Candace Laguerre) Transient hypertension of (Acute) Persistent mild range BPs when in triage 12/27. PreE labs negative.. Recommend delivery at 37 weeks. Reviewed preeclampsia precautions. Trauma during (Acute) Seen in triage after son fell directly onto her abdomen. 4 hours of monitoring reassuring. T&S not done in triage. Done 2 days later still demonstrates Abs from rhogam. GBS (group B Streptococcus carrier), +RV culture, currently (Acute) allergy to PCN has received Keflex in the past recommend Ancef and labor Iron (Fe) deficiency anemia (Acute) IV venofer wkly x 3 wks History of oligohydramnios (Acute) growth at 36 weeks History of shoulder dystocia in prior (Acute) clavicle fracture, 9lb 12 ounces. previous 8lbs 6 ounces without issues. counseled regarding recurrence risk, plan delivery modality dependent on EFW. Plan growth at 36w. Obesity affecting (Acute) ordered nutrition consult, encouraged healthy weight gain. nl 1 tm glucola. Rh negative status during (Acute) rhogam given at 28 weeks or if bleeding (Acute) NIPT low risk. carrier declined. ntd screening declined. anatomy reviewed/normal. AMA (advanced maternal age) multigravida 35+ (Acute) PRR ISIAH: 01/23/20 GIRL PC: Briana Li Kirara, Joseph, Jase BF: Lucas UTI (urinary tract infection) during (Acute) treated. FARHAT neg. Anxiety and depression (Acute) encouraged counseling, celexa 40 daily Subjective: Patient doing well without complaints. Tolerating PO. Ambulating and voiding without difficulty. breast feeding well. Denies chest pain, shortness of breath, calf pain/swelling, fevers, chills, lightheadedness. - Physical Exam Vitals/I&O's: Vital Signs Temp Pulse Resp BP Pulse Ox 98.7 F 96 16 127/92 H 100 01/05/20 12:23 01/05/20 12:23 01/05/20 12:23 01/05/20 12:23 01/05/20 12:23 Oxygen Delivery Method Room Air Weight: 227 lb 1.218 oz Body Mass Index (BMI) 35.5 Intake and Output for Last 24 Hours 01/03/20 01/04/20 01/05/20 23:59 23:59 23:59 Intake Total 2263.57 / 2263.57 Output Total 200 / 200 200 / 200 Balance 2063.57 / 2063.57 -200 / -200 General: Alert, Oriented x3 Laboratory Results 01/04/20 20:25: Screen NEGATIVE, Baby's Blood Type A POSITIVE, Baby's MARJORIE POSITIVE Current Medications Acetaminophen (Acetaminophen 500 Mg Tablet) 1,000 mg PO Q8H PRN PRN PRN Reason: Pain Score 1-3 Last Admin: 01/05/20 03:38 Dose: 1,000 mg Documented by: Bisacodyl (Bisacodyl 10 Mg Suppository) 10 mg RECTAL UD PRN PRN Reason: If no BM Dibucaine (Dibucaine 30 Gm Tube) 1 applic TOPICAL TID PRN PRN; Protocol PRN Reason: Discomfort Ephedrine Sulfate (Ephedrine Sulfate 50 Mg/Ml Ampul) 10 mg IV Q10M PRN PRN Reason: hypotension Ephedrine Sulfate (Ephedrine Sulfate 50 Mg/Ml Ampul) 10 mg IM Q30M PRN PRN Reason: hypotension Fentanyl/Bupivacaine/Sodium Chlor (Fentanyl-Bupivacaine (Epidural) 100 Ml Bag) 0 ml EPIDURAL UD AMNA; Protocol Last Admin: 01/04/20 18:13 Dose: 100 ml Documented by: Hydrocortisone (Hydrocortisone 2.5% Crm) 1 applic TOPICAL TID PRN PRN; Protocol PRN Reason: Discomfort Lactated Ringer's () 1,000 mls @ 100 mls/hr IV .Q10H AMNA Last Admin: 01/05/20 12:36 Dose: 100 mls/hr Documented by: Nalbuphine HCl (Nalbuphine 10 Mg/Ml Ampul) 5 mg IV Q3H PRN PRN PRN Reason: ITCHING Naloxone HCl (Naloxone 0.4 Mg/Ml Syringe) 0.02 mg IV Q1M PRN PRN Reason: RR< 10 AND PT UNRESPONSIVE Naproxen (Naproxen 250 Mg Tablet) 500 mg PO Q8H PRN PRN PRN Reason: Pain Score 1-3 Last Admin: 01/05/20 07:52 Dose: 500 mg Documented by: Ondansetron HCl (Ondansetron 4 Mg/2 Ml Vial) 4 mg IV Q4H PRN PRN PRN Reason: Nausea Oxycodone HCl (Oxycodone 5 Mg Tablet) 5 - 10 mg PO Q4H PRN PRN PRN Reason: Pain Score 4-10 Senna/Docusate Sodium (Senna/Docusate Sodium 1 Tablet) 1 - 2 tablet PO DAILY PRN PRN PRN Reason: Constipation Last Admin: 01/05/20 07:52 Dose: 2 tablet Documented by: Simethicone (Simethicone 80 Mg Tablet) 80 mg PO PCHS PRN PRN Reason: Indigestion/Stomach pain Sodium Chloride (0.9% Saline Lock 10 Ml Syringe) 5 - 15 ml IV UD PRN PRN Reason: SALINE FLUSH Last Admin: 01/05/20 07:53 Dose: 10 ml Documented by: Medical Necessity - Tobacco Use Smoking Status: Former smoker Assessment/Plan All Active Problems (Last Reviewed 12/30/19 @ 10:51 by Candace Laguerre) Transient hypertension of (Acute) Trauma during (Acute) GBS (group B Streptococcus carrier), +RV culture, currently (Acute) Iron (Fe) deficiency anemia (Acute) History of oligohydramnios (Acute) History of shoulder dystocia in prior (Acute) Obesity affecting (Acute) Rh negative status during (Acute) (Acute) AMA (advanced maternal age) multigravida 35+ (Acute) UTI (urinary tract infection) during (Acute) Anxiety and depression (Acute) Acute asthma exacerbation (Resolved) Avulsion of skin of left hand (Resolved) GERD (gastroesophageal reflux disease) (Resolved) H/O pre-term labor (Resolved) Hx of appendectomy (Resolved) Hx of cholecystectomy (Resolved) Leg swelling in (Resolved) Mastitis, acute (Resolved) Pharyngitis, acute (Resolved) Threatened labor (Resolved) s/p PPD # 1 1. routine post delivery care 2. breast feeding- support given 3. rh positive 4. rubella immune
--- NOTE | 2020-01-05 17:15 | CASEMGMT ---
Social Work Assessment Labor and Delivery Unit Date of Referral: 01/05/2020 Time of Referral: 1016 Referred By: Dr. Janine Koch Date of Intervention: 01/05/2020 Time of Intervention: 1715 Reason for Referral: Mother of baby (MOB) with history of depression (PPD). History obtained from: MOB, Chart, Nursing staff Household composition: MOB, Father of baby (FOB ? Chaz Baxter), an 18, 15, 13, 8, and 7-year-old and now this infant, Sam Baxter live in private home together. All children in the home have same maternity. This infant and the younger two children share paternity. MOB reports to have positive relationship of father of older children. MOB reports that with this infant was not planned but accepted. Patient's parent/guardian status: MOB and FOB have been together 10 years. MOB reports that FOB is a positive support and MOB feels safe with FOB. MOB had tubal today and plans to have no other children. Medical History: MOB with history prior to this . MOB with vaginal delivery at 37 weeks. Infant born on 01/04/2018 with weight of 3460g and Apgars of 9 and 9 at 1min and 5min. MOB with appropriate care visits. 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 Educational Status: MOB denies any concerns of comprehension or understanding. Financial Status: MOB reports to have no financial concerns. MOB works full-time at [employer] and plans to take 8 weeks off. FOB is self employed as a water proofer. Infant Supplies: MOB reports to have all needed infant supplies in the home including a car seat an crib. MOB reports plan to breastfeed. Childcare/Caregiver(s): MOB plans to be primary caregiver for infant until MOB returns to work when infant will have MOB?s mother as caregiver. MOB?s mother currently assisting with care of other children in the home. Transportation: No concerns. Programs/Agencies Involved: Denies any active community resources. Children Services/Legal Issues: Denies any history of children services or legal issues. Mental Health History: MOB reports history of Anxiety and Depression as well as PPD with third child only. MOB reports to have been going through a breakup with prior significant other and to have had separation anxiety from third child. MOB reports to feel comfortable speaking with doctors about any concerns with PPD or MOB?s Anxiety/Depression. MOB broaching topic of signs and symptoms of PPD and able to demonstrate understanding of MOB?s risk factors. MOB goal oriented. MOB denies any thoughts of suicidal or history of. Substance Use History: Denies Maternal and Drug Screens: MOB with negative tox screen on 06/25/2019. MOB with no tox screen on admission. Infant with no tox screen completed. PHQ9: Did not trigger. Family/Social Stressors: Denies any current stressors outside of ?surprise baby? and adjusting to life with an infant again. Support Systems: MOB reports to have positive support from family. MOB reports to have taken awhile to tell family about as ?I was concerned about what they would think.? MOB then states, ?but then it doesn?t care what they think.? This social science teacher normalizing MOB?s feelings in this regard. Depression and Anxiety/Shaken Baby/Safe Sleeping: MOB provided with written information on PPD and Anxiety, Shaken Baby, Safe Sleeping, and [facility] resources along with counseling agencies. MOB responding appropriately to Shaken Baby and Safe Sleeping prompts. MOB with no active counseling but open to list of counseling agencies if MOB would need further support. ASSESSMENT: Met with MOB and in room. Introduced self and social science teacher role. MOB agreeable to speaking with this social science teacher. MOB reports that FOB is currently at home taking care of the other children. MOB reports to hope to be able to discharge to home tomorrow. MOB denies any concerns for discharge or community needs. MOB with appropriate affect. resting in bassinet during assessment. MOB gazing often towards infant and reports to have a connection with infant. PLAN: to discharge to home with MOB, FOB and other siblings. No other services requested or indicated.
[2020-01-05] MEDS: oxyCODONE 5 MG Tablet PO (19:04)
[2020-01-06] MEDS: Acetaminophen 500 MG Tablet 1000 MG PO (00:14)
[2020-01-06 02:34] VITALS: BP 115/68; PULSE 93
[2020-01-06 02:35] VITALS: BP 115/68; PULSE 93; RESP 18; TEMP 37.2
[2020-01-06 07:50] VITALS: BP 115/78; PULSE 90; RESP 16; TEMP 36.7
--- NOTE | 2020-01-06 08:15 | PCM.PN.OB ---
Patient Problems: Active and Suspected Problems (Last Reviewed 12/30/19 @ 10:51 by Candace Laguerre) Transient hypertension of (Acute) Persistent mild range BPs when in triage 12/27. PreE labs negative.. Recommend delivery at 37 weeks. Reviewed preeclampsia precautions. Trauma during (Acute) Seen in triage after son fell directly onto her abdomen. 4 hours of monitoring reassuring. T&S not done in triage. Done 2 days later still demonstrates Abs from rhogam. GBS (group B Streptococcus carrier), +RV culture, currently (Acute) allergy to PCN has received Keflex in the past recommend Ancef and labor Iron (Fe) deficiency anemia (Acute) IV venofer wkly x 3 wks History of oligohydramnios (Acute) growth at 36 weeks History of shoulder dystocia in prior (Acute) clavicle fracture, 9lb 12 ounces. previous 8lbs 6 ounces without issues. counseled regarding recurrence risk, plan delivery modality dependent on EFW. Plan growth at 36w. Obesity affecting (Acute) ordered nutrition consult, encouraged healthy weight gain. nl 1 tm glucola. Rh negative status during (Acute) rhogam given at 28 weeks or if bleeding (Acute) NIPT low risk. carrier declined. ntd screening declined. anatomy reviewed/normal. AMA (advanced maternal age) multigravida 35+ (Acute) PRR ISIAH: 01/23/20 GIRL PC: Briana Li Kirara, Joseph, Jase BF: Lucas UTI (urinary tract infection) during (Acute) treated. FARHAT neg. Anxiety and depression (Acute) encouraged counseling, celexa 40 daily Subjective: Patient doing well without complaints. Had bilateral salpingectomy yesterday. Tolerating PO. Ambulating and voiding without difficulty. feeding well. Denies chest pain, shortness of breath, calf pain/swelling, fevers, chills, lightheadedness. - Physical Exam Vitals/I&O's: Vital Signs Temp Pulse Resp BP Pulse Ox 98.0 F 90 16 115/78 97 01/06/20 07:50 01/06/20 07:50 01/06/20 07:50 01/06/20 07:50 01/05/20 20:50 Oxygen Flow Rate (L/min) 3 Oxygen Delivery Method Room Air Weight: 227 lb 1.218 oz Body Mass Index (BMI) 35.5 Intake and Output for Last 24 Hours 01/04/20 01/05/20 01/06/20 23:59 23:59 23:59 Intake Total 2263.57 / 2263.57 1096.67 / 1096.67 Output Total 200 / 200 250 / 250 Balance 2063.57 / 2063.57 846.67 / 846.67 General: Alert, Oriented x3 Abdomen: Soft, Non-Distended, - - FF below U. Incision dry and intact. Appropriately tender Current Medications Acetaminophen (Acetaminophen 500 Mg Tablet) 1,000 mg PO Q8H PRN PRN PRN Reason: Pain Score 1-3 Last Admin: 01/06/20 00:14 Dose: 1,000 mg Documented by: Bisacodyl (Bisacodyl 10 Mg Suppository) 10 mg RECTAL UD PRN PRN Reason: If no BM Dibucaine (Dibucaine 30 Gm Tube) 1 applic TOPICAL TID PRN PRN; Protocol PRN Reason: Discomfort Ephedrine Sulfate (Ephedrine Sulfate 50 Mg/Ml Ampul) 10 mg IV Q10M PRN PRN Reason: hypotension Ephedrine Sulfate (Ephedrine Sulfate 50 Mg/Ml Ampul) 10 mg IM Q30M PRN PRN Reason: hypotension Hydrocortisone (Hydrocortisone 2.5% Crm) 1 applic TOPICAL TID PRN PRN; Protocol PRN Reason: Discomfort Nalbuphine HCl (Nalbuphine 10 Mg/Ml Ampul) 5 mg IV Q3H PRN PRN PRN Reason: ITCHING Naloxone HCl (Naloxone 0.4 Mg/Ml Syringe) 0.02 mg IV Q1M PRN PRN Reason: RR< 10 AND PT UNRESPONSIVE Naproxen (Naproxen 250 Mg Tablet) 500 mg PO Q8H PRN PRN PRN Reason: Pain Score 1-3 Last Admin: 01/05/20 21:17 Dose: 500 mg Documented by: Ondansetron HCl (Ondansetron 4 Mg/2 Ml Vial) 4 mg IV Q4H PRN PRN PRN Reason: Nausea Oxycodone HCl (Oxycodone 5 Mg Tablet) 5 - 10 mg PO Q4H PRN PRN PRN Reason: Pain Score 4-10 Last Admin: 10/14/20 19:04 Dose: 5 mg Documented by: Senna/Docusate Sodium (Senna/Docusate Sodium 1 Tablet) 1 - 2 tablet PO DAILY PRN PRN PRN Reason: Constipation Last Admin: 01/05/20 07:52 Dose: 2 tablet Documented by: Simethicone (Simethicone 80 Mg Tablet) 80 mg PO PCHS PRN PRN Reason: Indigestion/Stomach pain Sodium Chloride (0.9% Saline Lock 10 Ml Syringe) 5 - 15 ml IV UD PRN PRN Reason: SALINE FLUSH Last Admin: 01/05/20 07:53 Dose: 10 ml Documented by: Medical Necessity - Tobacco Use Smoking Status: Former smoker Assessment/Plan All Active Problems (Last Reviewed 12/30/19 @ 10:51 by Candace Laguerre) Transient hypertension of (Acute) Trauma during (Acute) GBS (group B Streptococcus carrier), +RV culture, currently (Acute) Iron (Fe) deficiency anemia (Acute) History of oligohydramnios (Acute) History of shoulder dystocia in prior (Acute) Obesity affecting (Acute) Rh negative status during (Acute) (Acute) AMA (advanced maternal age) multigravida 35+ (Acute) UTI (urinary tract infection) during (Acute) Anxiety and depression (Acute) Acute asthma exacerbation (Resolved) Avulsion of skin of left hand (Resolved) GERD (gastroesophageal reflux disease) (Resolved) H/O pre-term labor (Resolved) Hx of appendectomy (Resolved) Hx of cholecystectomy (Resolved) Leg swelling in (Resolved) Mastitis, acute (Resolved) Pharyngitis, acute (Resolved) Threatened labor (Resolved) s/p PPD # 2; POD#2 1. routine post delivery care 2. breast feeding- support given 3. rh negative 4. rubella immune 5. home today
[2020-01-06] MEDS: oxyCODONE 5 MG Tablet PO ×2 (08:19→14:48)
[2020-01-06] MEDS: Senna/Docusate Sodium 1 Tablet PO (08:52)
[2020-01-06 14:21] VITALS: BP 132/80
== END 2020-01-06 15:35 | disposition home or self-care (01) | DRG 798 ==
PROVIDERS: Admitting Provider Obstetrics & Gynecology; PCP Preventive Medicine Occupational Medicine; Referring Provider Obstetrics & Gynecology; Visit Provider Obstetrics & Gynecology
PROC: 0UL70ZZ Occlusion of Bilateral Fallopian Tubes, Open Approach (ICD-10-PCS; principal; 2020-01-05 12:45)
DX: O13.4 Gestational [pregnancy-induced] hypertension without significant proteinuria, complicating childbirth (principal); Z37.0 Single live birth; Z30.2 Encounter for sterilization; Z3A.37 37 weeks gestation of pregnancy; F32.9 Major depressive disorder, single episode, unspecified; F41.9 Anxiety disorder, unspecified; O99.344 Other mental disorders complicating childbirth; O99.824 Streptococcus B carrier state complicating childbirth; E66.9 Obesity, unspecified; O99.214 Obesity complicating childbirth; O26.893 Other specified pregnancy related conditions, third trimester; Z67.91 Unspecified blood type, Rh negative; O99.62 Diseases of the digestive system complicating childbirth; K21.9 Gastro-esophageal reflux disease without esophagitis; Z87.891 Personal history of nicotine dependence; D50.9 Iron deficiency anemia, unspecified; O99.02 Anemia complicating childbirth
CPT/HCPCS: 59025; 59050; 85025; 85461; 86850; 86900; 86901; 90384; 99218; J7120; A4216; G0378; J2790

== ENCOUNTER → 2020-08-09 10:58 | Outpatient (CLI) | payer OTHER, MEDICAID, SELFPAY ==
[2019-12-14 12:48] VITALS: BMI 36.8
[2020-02-15 13:14] VITALS: BMI 31.5
--- NOTE | 2020-08-09 12:45 | NEURO ---
NCS and/or EMG Patient Report Ordering Doctor: Surendra Chavarria DATE OF SERVICE: 08/09/20 Jaclyn Thompson presents for electrodiagnostic testing of the upper limbs. She reports numbness and pain in both hands, worse on the right side. Electrodiagnostic findings: Right median motor nerve demonstrates prolonged distal latency with normal amplitude and conduction velocity. Left median motor responses within normal limits. Normal ulnar motor response bilaterally. Normal median and ulnar F waves. Prolonged median sensory latency at the wrist bilaterally. Normal ulnar and radial sensory responses. On needle EMG, all muscles tested in the upper limbs showed no evidence of denervation with normal motor unit action potentials. Electrodiagnostic impression: This is an abnormal study in the upper limbs. 1. Electrodiagnostic findings demonstrate bilateral median mononeuropathy. This is consistent with a mild to moderate right carpal tunnel syndrome and a mild left carpal tunnel syndrome
== END ==
PROVIDERS: PCP Preventive Medicine Occupational Medicine; Referring Provider Preventive Medicine Occupational Medicine; Visit Provider Preventive Medicine Occupational Medicine
DX: G56.03 Carpal tunnel syndrome, bilateral upper limbs (principal)
CPT/HCPCS: 95886; 95912

== ENCOUNTER 2020-09-18 14:00 | Outpatient (RCR) | payer OTHER, MEDICAID, SELFPAY ==
[2020-02-15 13:14] VITALS: BMI 31.5
--- NOTE | 2020-09-07 15:54 | HP.OTEVAL_ITS ---
Patient's Visit Information ANTONELLA MAE is a 39 year old F, referred to Occupational Therapy by Dr. Surendra Chavarria DO, with a diagnosis of CTS. Date of Evaluation: 09/07/20 Occupational Therapist: IFTIKHAR Mccormick/Girish, CHT - Subjective This 39 year old female was seen for OT eval with dx of bilateral CTS. pt states during she had issues with swelling and her symptoms were worse. pt states she had a nerve conduction test and confirmed CTS mild-moderate. pt employed at [employer] and states she quinones drop items and hands do go numb/tingling. pt is hopeful she can avoid sx. pt states she did have a fall and hurt her right shoulder -did not know if symptoms were related. pt also stated that during her child delivery 8 months ago she had a vain blow where her IV was- this now is sore and will have a noticeable catch with right wrist motion. - ADLs Dressing: Bra Fasteners: Snaps Kitchen: Open jars - Pain right hand 5 Pain Intensity Range: 1, 5 - ROM Shoulder: right shoulder 80* left Elbow: right/left WNL Wrist: right 70/60 left 75/60 - Strength Supervisor Of Operations: right 55 left 70# Lateral Pinch: right 10# left 12# Tripod Pinch: right 10# left 14# Tip-to-Tip Pinch: right 4# left 10# Strength Comments: pt demo with a decrease in right delivery aide and pinch strength - Sensation Thumb: right 2.83 left 2.83 Index: right 2.83 left 2.83 Middle: right 2.83 left 2.83 Ring: right 2.83 left 2.83 Little: right 2.83 left 2.83 - Special Tests Median Nerve Compression Test: positive right/left - Quick DASH-Disab of Arm,Shoulder& Hand Quick DASH Score: 23.3325 - Goals Goal:: pt will demo a increase in tripod and tip pinch by 6# to increase pts ind.with ADLs and IADLs by dc Goal:: pt will report a 70% reduction in median nerve tingling indicating less compression on median nerve by d/c. pt will demo a good sitting posture to decrease compression symptoms by end of 3rd visit. - Rehabilitation General Assessment: pt demo with positive symptoms of bilateral CTS and would benefit from skilled OT services 2x week for 4 weeks. Today pt was ed. on forearm stretches and median nerve glides as well getting wrist braces to sleep in. pt demo understanding and agree to POC. Rehabilitation Potential: Good - Anticipated Interventions A/AAROM/PROM, Triggerpoint Release, Modalities, Joint Protection/Energy Conservation, Ergonomic Education, Education re assistive Equipment, Education re Diagnosis - Visit Plan Frequency: 2x /Week Duration: 4 Weeks TEXT: Thank you for the opportunity to evaluate your patient. For Medicare and Medicare HMO plans, please review the plan of care and approve it. It will need to be FAXED BACK to us at [phone] for Medicare purposes. Please let me know if there are questions or concerns regarding this plan of care. Physician Signature: Date:
--- NOTE | 2021-03-29 13:44 | HP.OT.NRP ---
ANTONELLA MAE was seen in my office for initial evaluation on 09/07/20. The following Plan of Care was established for this patient: Initial Frequency: 2x /Week Initial Duration: 4 Weeks Plan: Cont POC - Dr appt Friday Anticipated Interventions: A/AAROM/PROM, Triggerpoint Release, Modalities, Joint Protection/Energy Conservation, Ergonomic Education, Education re assistive Equipment, Education re Diagnosis This patient was last seen in our office 09/18/20. Pertinent comments regarding their Occupational therapy will appear below: pt seen for CTR. pt cancelled 3 visits and No Showed 2 and one being her last visit. Due to time lapse in services pt d/c. At this point I will be discontinuing this patient from occupational therapy. I would be happy to see this patient again in the future if found appropriate by the physician. Thank you! Tami Al, OTR/L, CHT
== END 2020-09-18 19:00 | disposition home or self-care (01) ==
LOC: OT 14:00
PROVIDERS: PCP Preventive Medicine Occupational Medicine; Referring Provider Preventive Medicine Occupational Medicine; Visit Provider Preventive Medicine Occupational Medicine
DX: G56.00 Carpal tunnel syndrome, unspecified upper limb (principal)
CPT/HCPCS: 97035; 97110; 97140; 97166; 97530

== ENCOUNTER 2020-10-27 15:04 | Emergency (ER) | payer OTHER, MEDICAID, SELFPAY ==
[2020-02-15 13:14] VITALS: BMI 31.5
[2020-10-27 15:06] VITALS: BP 151/96; PULSE 126; RESP 17; TEMP 36.6; O2SAT 100; BMI 31.4
[2020-10-27 15:16] VITALS: BP 139/78; PULSE 120; RESP 16; O2SAT 100
[2020-10-27 15:26] LABS: Bedside Glucose 109 mg/dL (70-110)
--- NOTE | 2020-10-27 15:32 | EKG12_ITS ---
Test Reason : Blood Pressure : / mmHG Vent. Rate : 121 BPM Atrial Rate : 121 BPM P-R Int : 154 ms QRS Dur : 082 ms QT Int : 316 ms P-R-T Axes : 064 064 -05 degrees QTc Int : 448 ms Sinus tachycardia Nonspecific ST and T wave abnormality Abnormal ECG Confirmed by PAYAL DOW, ENRIQUE ([id number]), supervising film or videotape editor CHANDLER VYAS ([id number]) on 10/31/2020 9:02:26 AM Referred By: MICHELLE Confirmed By:ENRIQUE MOE MD
--- NOTE | 2020-10-27 15:33 | EX.ED.DYSGE1 ---
HPI History of Present Illness Chief Complaint: Anxiety Informant: patient Onset/Context/Timing Onset: Today Context: Gradual Onset Current Severity: Mild Maximum Severity: Moderate Narrative Narrative: Patient presents secondary to increased anxiety and palpitations. Patient thinks that she had too much caffeine today. She had 2 energy drinks and 2 tabs of Hydroxycut. She states she feels her heart is racing and pounding hard. She does not feel as if she is going to pass out. [facility] Medical History Anxiety and depression Asthma GERD (gastroesophageal reflux disease) Home Medications pantoprazole 40 mg PO DAILY 03/30/13 [History Last Taken 01/03/20] albuterol sulfate 90 mcg/actuation aerosol inhaler 2 puff INHALATION Q4H PRN #1 ea 06/22/19 [Rx Last Taken 12/05/19] 19 1 tab PO DAILY 01/04/20 [History Last Taken 01/03/20] budesonide-formoterol HFA 160 mcg-4.5 mcg/actuation aerosol inhaler 2 puff INHALATION BID PRN 02/15/20 [History Last Taken Unknown] citalopram 40 mg tablet 40 mg PO DAILY #90 tab 02/15/20 [Rx Last Taken Unknown] montelukast 10 mg tablet 10 mg PO DAILY PRN 02/15/20 [History Last Taken Unknown] fluconazole 150 mg tablet 150 mg PO .COMPLEX #2 tab 05/24/20 [Rx Last Taken Unknown] potassium chloride [K-Tab] 40 meq PO DAILY 4 Days #8 tab 10/27/20 [Rx Last Taken Unknown] Allergy/AdvReac Type Severity Reaction Status Date / Time ampicillin Allergy Itching Verified 10/27/20 15:06 Fish Containing Products Allergy Shortness Verified 10/27/20 15:06 of breath Penicillins [PCN] Allergy Shortness Verified 10/27/20 15:06 of breath clindamycin AdvReac Pain in Verified 10/27/20 15:06 joints Family History Mother ADALBERTO III (cervical intraepithelial neoplasia grade III) with severe dysplasia Surgical History History of tubal ligation Hx of appendectomy Hx of cholecystectomy Social History adopted: No household members: family housing: house number of children: 5 current occupational status: employed current occupation: [employer] pets and animals: No history of recent travel: No Smoking Status: Former smoker second hand exposure: No alcohol intake: never substance use type: does not use caffeine: No what type of physical activity do you participate in: walking, bicycling and weight training frequency: 3-4 times per week seatbelt use: always do you feel safe at home: Yes additional social history: Boyfriend- Chaz ROWE ROS ED Constitutional Constitutional ED: Denies chills or fever(s) Eyes Eyes: Denies change in vision ENT ENT ED: Denies sore throat Cardiovascular Cardiovascular: Reports palpitations and racing heartbeat; Denies chest pain Respiratory/Chest Respiratory/Chest: Denies cough or dyspnea Gastrointestinal Gastrointestinal: Denies abdominal pain, diarrhea, nausea or vomiting Genitourinary Genitourinary ED: Denies dysuria Musculoskeletal Musculoskeletal: Denies back pain Integumentary Denies rash Neurologic Neurologic: Denies headache(s) or weakness Psychiatric Psychiatric: Reports anxiety; Denies depression Endocrine Endocrinology: Denies polydipsia or polyuria Allergic/Immunologic Allergic/Immunologic ED: Denies urticaria EXAM Physical Exam Const Vital Signs: 10/27/20 15:06 10/27/20 15:16 10/27/20 17:05 Temperature 97.9 F Temperature Source Oral Pulse Rate 126 H 120 H 98 Respiratory Rate 17 16 16 Blood Pressure 151/96 H 139/78 H 119/81 H Blood Pressure Mean 114 98 93 Pulse Ox 100 100 97 Oxygen Delivery Method Room Air Room Air Room Air Positive well nourished and well developed General Appearance ED: well developed HEENT Reports moist mucous membranes Eyes PERRL and EOMs intact bilaterally Neck supple Chest Wall inspection of chest normal and palpation of chest normal Resp normal respiratory effort and clear to auscultation bilaterally Cardio Rate: tachycardic GI normal to inspection, nondistended, normoactive bowel sounds and non-tender Palpation: soft Extremity normal to inspection Neuro oriented x3 Sensorium / Orientation: alert Psych mental status grossly normal Skin no rashes or lesions noted MDM MDM MDM Narrative Medical decision making narrative: Labs and EKG are obtained. Patient is given a liter IV fluid and 0.5 mg of Ativan. Lab Data Attestation: I reviewed the patient's lab results. Labs: Laboratory Results - last 24 hr 10/27/20 10/27/20 10/27/20 15:16 15:55 15:55 WBC 14.0 H RBC 4.79 Hgb 13.2 Hct 41.8 MCV 87.3 MCH 27.6 MCHC 31.6 L RDW Std Deviation 39.9 RDW Coeff of Lamine 12.7 Plt Count 393 MPV 9.0 Immature Gran % (Auto) 0.500 Neut % (Auto) 65.3 Lymph % (Auto) 23.8 Surry % (Auto) 6.9 Eos % (Auto) 2.9 Baso % (Auto) 0.6 Absolute Neuts (auto) 9.2 H Absolute Lymphs (auto) 3.34 Nucleated RBC % 0 Sodium 135 L Potassium 2.9 L Chloride 101 Carbon Dioxide 27.0 Anion Gap 7 BUN 15 Creatinine 0.73 Estim Creat Clear Calc 98.78 Est GFR (MDRD) Af Amer 115 Est GFR (MDRD) Non-Af 95 BUN/Creatinine Ratio 20.6 H Glucose 97 Calcium 8.8 POC Glucose 109 Radiography Chest X-Ray - ED: 1 View, Read by ED Physician, Normal, Heart, Lungs and Mediastinum Diagnostic Testing: Radiology Impression Chest X-Ray 10/27/20 16:04 IMPRESSION: Normal chest radiograph and unchanged when compared to 06/18/2017. Electronically Signed: Jatinder Morton MD at 16:14 EDT , Service support , EKG Initial EKG: Attestation: I personally reviewed and interpreted this EKG as follows: Interpretation: Sinus Tachycardia (Sinus tach at 121. No acute ischemia.) Treatment and Re-Evaluation Comments:: On repeat evaluation patient's heart rate is in the 90s. Lab work is reviewed with her. Potassium is low at 2.9 and this is replaced orally. She will be given a prescription for 4 additional days of potassium replacement at home. We discussed limiting caffeine intake for the next several days. Discharge Plan Triage Chief Complaint: Anxiety ED Provider: Jaclyn Guerrero Dx/Rx/DC Orders Clinical Impression: Heart palpitations, Hypokalemia Instructions: ED Hypokalemia, ED Palpitations Prescriptions: New potassium chloride [K-Tab] 20 mEq tablet extended release 40 meq PO DAILY 4 Days Qty: 8 RF: 0 No Action albuterol sulfate 90 mcg/actuation HFA aerosol inhaler 2 puff INHALATION Q4H PRN (Reason: shortness of breath or wheezing) Qty: 1 RF: 3 citalopram 40 mg tablet 40 mg PO DAILY Qty: 90 RF: 3 pantoprazole 40 MG tablet 40 mg PO DAILY RF: 0 19 29 mg iron- 1 mg tablet,chewable 1 tab PO DAILY RF: 0 budesonide-formoterol 160-4.5 mcg/actuation HFA aerosol inhaler 2 puff INHALATION BID PRN (Reason: breathing) RF: 0 montelukast 10 mg tablet 10 mg PO DAILY PRN (Reason: allergy) RF: 0 fluconazole 150 mg tablet 150 mg PO .COMPLEX Qty: 2 RF: 1 Primary Care Provider: Surendra Chavarria Referrals: Surendra Chavarria DO [Primary Care Provider] - 1-2 Weeks Disposition Disposition: Home, Self Care
[2020-10-27] MEDS: LORazepam 2 MG/ML Syringe 0.5 MG IV (15:54)
[2020-10-27] MEDS: 0.9% Normal Saline 1,000 ML 1000 ML IV (15:54)
--- NOTE | 2020-10-27 16:04 | RAD_ITS ---
EXAM: XR CHEST, 1 VIEW CLINICAL INDICATION: palpitations TECHNIQUE: Frontal view of the chest. This report was created using [employer] report generation technology. COMPARISON: 06/18/2017. FINDINGS: LUNGS AND PLEURAL SPACES: Unremarkable. No consolidation or edema. No pneumothorax. No effusion. HEART: Unremarkable. Cardiac silhouette not enlarged. MEDIASTINUM: Central airways and mediastinal contour are unremarkable. BONES/JOINTS: Unremarkable. SOFT TISSUES: Unremarkable. RAD/Chest 1 View (Portable) IMPRESSION: Normal chest radiograph and unchanged when compared to 06/18/2017. Electronically Signed: Jatinder Morton MD at 16:14 EDT , Service support ,
[2020-10-27 16:16] LABS: Absolute Lymphocyte Count 3.34 X10^3/uL (0.83-4.51); Absolute Neutrophil Count 9.2 X10^3/uL (2.0-7.7); Basophil# 0.09 X10^3/uL; Basophil% 0.6 % (0-1); Eosinophil# 0.41 X10^3/uL; Eosinophils% 2.9 % (0-5); Hematocrit 41.8 % (37-47); Hemoglobin 13.2 g/dL (12.0-15.0); Lymphocyte # 3.34 X10^3/ul (0.83-4.51); Lymphocyte % 23.8 % (19-41); Mean Corp Hgb Conc 31.6 g/dL (32-36); Mean Corpuscular Hgb 27.6 pg (27.0-32.0); Mean Corpuscular Volume 87.3 fL (81-99); Monocyte# 0.97 X10^3/uL; Monocyte% 6.9 % (0-10); NRBC Flagged by Analyzer 0 % (0-5); Neutrophil # 9.16 X10^3/uL (2.7-7.7); Neutrophil % 65.3 % (47-70); Platelet Count 393 K/mm3 (150-450); RBC Distribution Width CV 12.7 % (11.6-14.6); RBC Distribution Width SD 39.9 fl (35.1-43.9); Red Blood Count 4.79 M/mm3 (4.2-5.4)
[2020-10-27 16:38] LABS: Anion Gap 7 (5-15); BUN 15 mg/dL (7-18); BUN/Creat Ratio 20.6 RATIO (10-20); Calcium,Total 8.8 mg/dL (8.5-10.1); Chloride 101 mmol/L (98-107); Creatinine, Serum 0.73 mg/dL (0.55-1.02); EST Glomerular Filtration Rate 95 mL/min (>60); Est Glom Filt Rate - Afr Amer 115 mL/min (>60); Estimated Creatinine Clearance 98.78 ml/min; Glucose 97 mg/dL (74-106); Potassium 2.9 mmol/L (3.5-5.1); Sodium Level 135 mmol/L (136-145)
[2020-10-27 17:05] VITALS: BP 119/81; PULSE 98; RESP 16; O2SAT 97
[2020-10-27] MEDS: Potassium Chloride Oral Tablet 20 MEQ 40 MEQ PO (17:10)
[2020-10-27 17:31] VITALS: BP 114/78; PULSE 84; RESP 16; O2SAT 97
--- NOTE | 2020-10-27 17:33 | ED.RN ---
THIS NURSE REVIEWED D/C INSTRUCTIONS WITH PT. PT VERBALIZED UNDERSTANDING OF INSTRUCTIONS. IV D/C. IV CATHETER INTACT. PT TOLERATED WELL. PT DENIES FURTHER NEEDS OR QUESTIONS AT THIS TIME.
== END 2020-10-27 17:35 | disposition home or self-care (01) ==
PROVIDERS: Emergency Provider Emergency Medicine; PCP Preventive Medicine Occupational Medicine
DX: E87.6 Hypokalemia (principal); R00.2 Palpitations; Z87.891 Personal history of nicotine dependence; Z90.49 Acquired absence of other specified parts of digestive tract; Z98.51 Tubal ligation status; J45.909 Unspecified asthma, uncomplicated; K21.9 Gastro-esophageal reflux disease without esophagitis
CPT/HCPCS: 71045; 80048; 82962; 85025; 93005; 96361; 96374; 99285; J7030; A4216

== ENCOUNTER 2020-12-10 17:05 | Emergency (ER) | payer OTHER, MEDICAID, SELFPAY ==
[2020-12-10 17:06] VITALS: BP 120/82; PULSE 84; RESP 16; TEMP 36.7; O2SAT 98; BMI 31.6
--- NOTE | 2020-12-10 18:07 | EDS_ITS ---
HPI History of Present Illness Chief Complaint: General Illness Informant: patient Onset/Context/Timing Onset: Weeks Context: Gradual Onset Timing: Continuous Current Severity: Mild Maximum Severity: Mild Narrative Narrative: 5-year-old female no significant past medical history of asthma. Multiple family members at home are Covid positive. She has been testing has been negative. Denies nausea vomiting or diarrhea. No recent fevers. But has had a persistent cough. Currently is on Zithromax from her ENT due to nasal drainage. Prior similar symptoms: Yes Recent Illness/Hospitalization: No PFSH PFSH Medical History Anxiety and depression Asthma GERD (gastroesophageal reflux disease) Home Medications pantoprazole 40 mg PO DAILY 03/30/13 [History Last Taken 01/03/20] 19 1 tab PO DAILY 01/04/20 [History Last Taken 01/03/20] budesonide-formoterol HFA 160 mcg-4.5 mcg/actuation aerosol inhaler 2 puff INHALATION BID PRN 02/15/20 [History Last Taken Unknown] citalopram 40 mg tablet 40 mg PO DAILY #90 tab 02/15/20 [Rx Last Taken Unknown] montelukast 10 mg tablet 10 mg PO DAILY PRN 02/15/20 [History Last Taken Unknown] fluconazole 150 mg tablet 150 mg PO .COMPLEX #2 tab 05/24/20 [Rx Last Taken Unknown] potassium chloride [K-Tab] 40 meq PO DAILY 4 Days #8 tab 10/27/20 [Rx Last Taken Unknown] albuterol sulfate 90 mcg/actuation aerosol inhaler 2 puff INHALATION Q4H PRN #1 ea 11/10/20 [Rx Last Taken Unknown] Allergy/AdvReac Type Severity Reaction Status Date / Time ampicillin Allergy Itching Verified 12/10/20 17:06 Fish Containing Products Allergy Shortness Verified 12/10/20 17:06 of breath Penicillins [PCN] Allergy Shortness Verified 12/10/20 17:06 of breath clindamycin AdvReac Pain in Verified 12/10/20 17:06 joints Family History Mother ADALBERTO III (cervical intraepithelial neoplasia grade III) with severe dysplasia Surgical History History of tubal ligation Hx of appendectomy Hx of cholecystectomy Social History adopted: No household members: family housing: house number of children: 5 current occupational status: employed current occupation: [employer] pets and animals: No history of recent travel: No Smoking Status: Former smoker second hand exposure: No alcohol intake: never substance use type: does not use caffeine: No what type of physical activity do you participate in: walking, bicycling and weight training frequency: 3-4 times per week seatbelt use: always do you feel safe at home: Yes additional social history: Boyfriend- Chaz ROS ROS ED ROS Narrative Cough. Review of Systems ROS Unobtainable: Denies due to encephalopathy Constitutional Constitutional ED: Denies chills or fever(s) Eyes Eyes: Denies change in vision ENT ENT ED: Reports rhinorrhea; Denies ear pain or sore throat Cardiovascular Cardiovascular: Denies chest pain Respiratory/Chest Respiratory/Chest: Reports cough; Denies dyspnea Gastrointestinal Gastrointestinal: Denies abdominal pain, diarrhea, nausea or vomiting Genitourinary Genitourinary ED: Denies dysuria Musculoskeletal Musculoskeletal: Denies myalgias Integumentary Denies rash Neurologic Neurologic: Denies headache(s) Psychiatric Psychiatric: Denies depression Endocrine Endocrinology: Denies polyuria Allergic/Immunologic Allergic/Immunologic ED: Denies urticaria EXAM Physical Exam Narrative Exam Narrative: 5-year-old female no acute distress vital signs stable afebrile. HEENT exam unremarkable except left upper molar is a cavity. There is no gingival swelling. Posterior pharynx normal. Neck nontender no lymphadenopathy. Lungs are clear. Heart regular rhythm no murmur. Otherwise exam unremarkable. Const Vital Signs: 12/10/20 17:06 Temperature 98.0 F Temperature Source Temporal Pulse Rate 84 Respiratory Rate 16 Blood Pressure 120/82 H Blood Pressure Mean 94 Pulse Ox 98 Oxygen Delivery Method Room Air Positive well nourished and well developed; Negative for obese, cachectic, contractures or unkempt General Appearance ED: well developed and NAD; Negative for unkempt, cachectic, contractures or pallor Nutritional Appearance: Negative for cachectic or obese HEENT Reports moist mucous membranes Negative for trauma or tenderness Eyes PERRL and EOMs intact bilaterally General Eye ED: Negative for pale conjunctiva or scleral icterus Neck no lymphadenopathy, supple and no JVD General: Negative for tenderness Chest Wall inspection of chest normal and palpation of chest normal Resp normal respiratory effort and clear to auscultation bilaterally Auscultation: Negative for rales, rhonchi or wheezes Cardio regular rate, regular rhythm, S1 normal heart sound, S2 normal heart sound and no murmurs GI normal to inspection, nondistended, normoactive bowel sounds, non-tender, non- distended and no masses Auscultation: normoactive bowel sounds Palpation: soft; Negative for tender, guarding or rebound tenderness present Back/Spine no CVA tenderness Extremity normal to inspection General Extremety ED: Yes edema; Negative for tenderness General Extremity: edema Neuro oriented x3 and CN's II-XII intact bilaterally Sensorium / Orientation: alert; Negative for lethargic or stuporous Motor Exam: strength 5/5 throughout Psych mental status grossly normal Appearance: Negative for unkempt Skin no rashes or lesions noted and no wounds General Skin Exam: Negative for jaundice or pallor MDM MDM MDM Narrative Medical decision making narrative: Covid negative. History and exam consistent with viral syndrome. Lab Data Attestation: I reviewed the patient's lab results. Discharge Plan Triage Chief Complaint: General Illness ED Provider: Tevin James Dx/Rx/DC Orders Clinical Impression: Acute viral syndrome Instructions: ED Viral Syndrome (Adult) Prescriptions: No Action citalopram 40 mg tablet 40 mg PO DAILY Qty: 90 RF: 3 pantoprazole 40 MG tablet 40 mg PO DAILY RF: 0 19 29 mg iron- 1 mg tablet,chewable 1 tab PO DAILY RF: 0 budesonide-formoterol 160-4.5 mcg/actuation HFA aerosol inhaler 2 puff INHALATION BID PRN (Reason: breathing) RF: 0 montelukast 10 mg tablet 10 mg PO DAILY PRN (Reason: allergy) RF: 0 potassium chloride [K-Tab] 20 mEq tablet extended release 40 meq PO DAILY 4 Days Qty: 8 RF: 0 fluconazole 150 mg tablet 150 mg PO .COMPLEX Qty: 2 RF: 1 albuterol sulfate 90 mcg/actuation HFA aerosol inhaler 2 puff INHALATION Q4H PRN (Reason: shortness of breath or wheezing) Qty: 1 RF: 3 Primary Care Provider: Surendra Chavarria Referrals: Surendra Chavarria DO [Primary Care Provider] - 10-14 Days if not better Activity Restrictions/Additional Instructions: Plenty of fluids and rest. Finish antibiotic. Follow-up with your dentist for your left upper tooth. Disposition Disposition: Home, Self Care
[2020-12-10 18:24] VITALS: RESP 16
== END 2020-12-10 18:26 | disposition home or self-care (01) ==
PROVIDERS: Emergency Provider Emergency Medicine; PCP Preventive Medicine Occupational Medicine
DX: B34.9 Viral infection, unspecified (principal); Z87.891 Personal history of nicotine dependence; J45.909 Unspecified asthma, uncomplicated; K21.9 Gastro-esophageal reflux disease without esophagitis; F41.9 Anxiety disorder, unspecified; F32.9 Major depressive disorder, single episode, unspecified; Z20.822 Contact with and (suspected) exposure to COVID-19
CPT/HCPCS: 87426; 99282

== ENCOUNTER 2020-12-13 13:05 | Emergency (ER) | payer OTHER, MEDICAID, SELFPAY ==
[2020-12-13 13:05] VITALS: BP 117/81; PULSE 89; RESP 16; TEMP 36.9; O2SAT 98; BMI 31.6
--- NOTE | 2020-12-13 13:51 | EX.ED.VIS.UR ---
HPI HPI - URI History of Present Illness Chief Complaint: Cough Informant: patient Onset/Context/Timing Onset: Weeks (3) Context: Gradual Onset Timing: Continuous Quality: congested, wheezing Location: nose, chest Current Severity: Mild Maximum Severity: Moderate Worsened by: - (coughing) Relieved by: - (albuterol w/r/t wheezing) Associated Symptoms Associated Symptoms: Positive for Nasal Congestion, Shortness of Breath (mild wheezing), Nonproductive cough and - (sinus congestion) Narrative Narrative: Patient presents 3 weeks worth of nasal congestion and sinus symptoms, saying that during a period of time her significant other developed Covid symptoms tested positive and was recently admitted to the hospital and she has been tending to him, exposed. There are multiple family members in the house. There have been other positive Covid, however the patient and her 9-year-old autistic son that she brings with her today both tested negative several times. The patient states she has had 4 - test she cannot remember when the last one was, she has had a combination of both rapid and PCR testing. She states her Covid positive children are due to go back to school tomorrow and she is planning on going back to work tomorrow and was advised to come here to get tested for Covid again. She has developed some wheezing, she has asthma, she was using her albuterol inhaler 3 times a day or so, she saw [facility] recently and was placed on prednisone and she is on day #4. ROS [facility] ED Constitutional Constitutional ED: Denies chills or fever(s) Eyes Eyes: Denies change in vision or diplopia ENT ENT ED: Reports nasal congestion, rhinorrhea and sinus pressure; Denies sore throat Cardiovascular Cardiovascular: Denies chest pain or palpitations Respiratory/Chest Respiratory/Chest: Reports cough, dyspnea and wheezing Gastrointestinal Gastrointestinal: Denies abdominal pain, diarrhea, nausea or vomiting Genitourinary Genitourinary ED: Denies dysuria or hematuria Musculoskeletal Musculoskeletal: Denies back pain or neck pain Integumentary Denies abscess or rash Neurologic Neurologic: Denies headache(s), paresthesias or weakness Psychiatric Psychiatric: Denies anxiety or suicidal thoughts [facility] Medical History Anxiety and depression Asthma GERD (gastroesophageal reflux disease) Home Medications pantoprazole 40 mg PO DAILY 03/30/13 [History Last Taken 01/03/20] 19 1 tab PO DAILY 01/04/20 [History Last Taken 01/03/20] budesonide-formoterol HFA 160 mcg-4.5 mcg/actuation aerosol inhaler 2 puff INHALATION BID PRN 02/15/20 [History Last Taken Unknown] citalopram 40 mg tablet 40 mg PO DAILY #90 tab 02/15/20 [Rx Last Taken Unknown] montelukast 10 mg tablet 10 mg PO DAILY PRN 02/15/20 [History Last Taken Unknown] fluconazole 150 mg tablet 150 mg PO .COMPLEX #2 tab 05/24/20 [Rx Last Taken Unknown] potassium chloride [K-Tab] 40 meq PO DAILY 4 Days #8 tab 10/27/20 [Rx Last Taken Unknown] albuterol sulfate 90 mcg/actuation aerosol inhaler 2 puff INHALATION Q4H PRN #1 ea 11/10/20 [Rx Last Taken Unknown] Allergy/AdvReac Type Severity Reaction Status Date / Time ampicillin Allergy Itching Verified 12/13/20 13:07 Fish Containing Products Allergy Shortness Verified 12/13/20 13:07 of breath Penicillins [PCN] Allergy Shortness Verified 12/13/20 13:07 of breath clindamycin AdvReac Pain in Verified 12/13/20 13:07 joints Family History Mother ADALBERTO III (cervical intraepithelial neoplasia grade III) with severe dysplasia Surgical History History of tubal ligation Hx of appendectomy Hx of cholecystectomy Social History adopted: No household members: family housing: house number of children: 5 current occupational status: employed current occupation: [employer] pets and animals: No history of recent travel: No Smoking Status: Former smoker second hand exposure: No alcohol intake: never substance use type: does not use caffeine: No what type of physical activity do you participate in: walking, bicycling and weight training frequency: 3-4 times per week seatbelt use: always do you feel safe at home: Yes additional social history: Boyfriend- Chaz EXAM Physical Exam Const Vital Signs: 12/13/20 13:05 12/13/20 14:00 Temperature 98.5 F Temperature Source Temporal Pulse Rate 89 Respiratory Rate 16 Respiratory Effort Short of Breath Blood Pressure 117/81 H Blood Pressure Mean 93 Pulse Ox 98 Oxygen Delivery Method Room Air Room Air Positive well nourished and well developed General Appearance ED: well developed and NAD HEENT Reports moist mucous membranes normocephalic and atraumatic Eyes PERRL and EOMs intact bilaterally Neck full ROM and supple Resp normal respiratory effort and clear to auscultation bilaterally Cardio regular rate, regular rhythm and no murmurs GI non-tender and non-distended Auscultation: normoactive bowel sounds Palpation: soft Back/Spine no CVA tenderness General Back: other FROM Extremity normal to inspection General Extremety ED: Negative for edema, pulses abnormal or tenderness General Extremity: Negative for edema or pulses abnormal Neuro oriented x3, CN's II-XII intact bilaterally and no sensory deficits noted Sensorium / Orientation: awake and alert Motor Exam: strength 5/5 throughout Skin no rashes or lesions noted and no wounds MDM MDM MDM Narrative Medical decision making narrative: Rapid Covid is ordered and sent and pending. 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 She is advised that when the Covid positive persons in her home have finished their isolation period, her 14-day quarantine begins assuming she continues to test negative. She was advised that she may have a non-Covid viral illness right now and she may develop symptoms that she does not currently have, then prompting another Covid test. I did discuss with employee health. She was advised to call, she was given the number. Discharge Plan Triage Chief Complaint: Cough ED Provider: Ritchie Bal Dx/Rx/DC Orders Clinical Impression: Viral URI Instructions: Coronavirus Disease 2019 (COVID-19): Prevention, ED URI, Viral, No Abx (Adult) Prescriptions: No Action citalopram 40 mg tablet 40 mg PO DAILY Qty: 90 RF: 3 pantoprazole 40 MG tablet 40 mg PO DAILY RF: 0 19 29 mg iron- 1 mg tablet,chewable 1 tab PO DAILY RF: 0 budesonide-formoterol 160-4.5 mcg/actuation HFA aerosol inhaler 2 puff INHALATION BID PRN (Reason: breathing) RF: 0 montelukast 10 mg tablet 10 mg PO DAILY PRN (Reason: allergy) RF: 0 potassium chloride [K-Tab] 20 mEq tablet extended release 40 meq PO DAILY 4 Days Qty: 8 RF: 0 fluconazole 150 mg tablet 150 mg PO .COMPLEX Qty: 2 RF: 1 albuterol sulfate 90 mcg/actuation HFA aerosol inhaler 2 puff INHALATION Q4H PRN (Reason: shortness of breath or wheezing) Qty: 1 RF: 3 Primary Care Provider: Surendra Chavarira Referrals: Surendra Chavarria DO [Primary Care Provider] - As Needed Activity Restrictions/Additional Instructions: Call Nuzhat in [facility], [phone]. Disposition Disposition: Home, Self Care
[2020-12-13 14:00] VITALS: O2SAT 98
== END 2020-12-13 14:30 | disposition home or self-care (01) ==
PROVIDERS: Emergency Provider Emergency Medicine; PCP Preventive Medicine Occupational Medicine
DX: J06.9 Acute upper respiratory infection, unspecified (principal); Z87.891 Personal history of nicotine dependence; F32.9 Major depressive disorder, single episode, unspecified; F41.9 Anxiety disorder, unspecified; K21.9 Gastro-esophageal reflux disease without esophagitis; J45.909 Unspecified asthma, uncomplicated
CPT/HCPCS: 87426; 99282

== ENCOUNTER 2021-07-06 10:48 | Outpatient (CLI) | payer OTHER, MEDICAID, SELFPAY ==
--- NOTE | 2021-07-06 10:50 | BI_ITS ---
MAMMOGRAPHY - BILATERAL SCREENING REASON FOR EXAM: Female, 40 years old. Routine annual screening examination. PERTINENT HISTORY: Non-contributory. TECHNIQUE: Digital bilateral breast valerie (3D mammographic acquisition) in the CC and MLO projections. 2-D mediolateral oblique (MLO) and craniocaudad (CC) views of both breasts were obtained. CAD: Full Field Digital Mammography with Computer Added Detection was performed. COMPARISON: Comparison is made with prior study dated 04/02/2019. FINDINGS: Breast Composition: The breasts are heterogeneously dense, which may obscure small masses. There are no dominant masses or suspicious calcifications. Stable benign-appearing bilateral axillary lymph nodes. No other significant abnormalities are identified. There has been no significant change since the prior study. BI/SCRN MAMM (CAD)W/VALERIE BILAT IMPRESSION: Stable bilateral screening mammogram. Yearly follow-up mammogram recommended. (A) ASSESSMENT CATEGORY: BIRADS Category 2: Benign. A letter regarding these results will be sent to the patient by the facility within 30 days. Approximately 10% of breast cancers are not detected by mammography. A normal mammogram should not delay biopsy of a clinically suspicious abnormality. [id number] Electronically Signed: Luca Schaefer MD at 12:12 EDT ,
== END 2021-07-06 23:59 | disposition home or self-care (01) ==
LOC: OPBI 10:49
PROVIDERS: PCP Preventive Medicine Occupational Medicine; Referring Provider Nurse Practitioner Women's Health; Visit Provider Nurse Practitioner Women's Health
DX: Z12.31 Encounter for screening mammogram for malignant neoplasm of breast (principal)
CPT/HCPCS: 77063; 77067

== ENCOUNTER → 2021-07-20 | Outpatient (CLI) | payer OTHER, MEDICAID, SELFPAY ==
[2021-07-20 07:08] LABS: Absolute Lymphocyte Count 2.52 X10^3/uL (0.83-4.51); Absolute Neutrophil Count 6.2 X10^3/uL (2.0-7.7); Basophil# 0.07 X10^3/uL; Basophil% 0.7 % (0-1); Eosinophil# 0.52 X10^3/uL; Eosinophils% 5.1 % (0-5); Hematocrit 39.5 % (37-47); Hemoglobin 12.7 g/dL (12.0-15.0); Lymphocyte # 2.52 X10^3/ul (0.83-4.51); Mean Corp Hgb Conc 32.2 g/dL (32-36); Mean Corpuscular Volume 87.2 fL (81-99); Mean Platelet Vol. 9.3 fl (6.2-12.0); Monocyte# 0.78 X10^3/uL; Monocyte% 7.7 % (0-10); NRBC Flagged by Analyzer 0 % (0-5); Neutrophil # 6.18 X10^3/uL (2.7-7.7); Neutrophil % 61.2 % (47-70); Platelet Count 400 K/mm3 (150-450); RBC Distribution Width CV 13.4 % (11.6-14.6); RBC Distribution Width SD 42.1 fl (35.1-43.9); Red Blood Count 4.53 M/mm3 (4.2-5.4); White Blood Count 10.1 K/mm3 (4.4-11.0)
[2021-07-20 07:41] LABS: Thyroid Stim Hormone (TSH) 4.14 uIU/mL (0.358-3.74)
[2021-07-20 08:47] LABS: Vitamin D,25 Hydroxy 47.4 ng/mL
== END | disposition home or self-care (01) ==
LOC: LAB 06:01
PROVIDERS: PCP Preventive Medicine Occupational Medicine; Referring Provider Nurse Practitioner Women's Health; Visit Provider Nurse Practitioner Women's Health
DX: Z13.21 Encounter for screening for nutritional disorder (principal); R53.83 Other fatigue; Z13.29 Encounter for screening for other suspected endocrine disorder
CPT/HCPCS: 36415; 82306; 84443; 85025

== ENCOUNTER → 2021-08-01 | Outpatient (CLI) | payer OTHER, MEDICAID, SELFPAY ==
[2021-08-01 07:22] LABS: T4 Free Direct 0.88 ng/dL (0.76-1.46); Thyroid Stim Hormone (TSH) 3.21 uIU/mL (0.358-3.74)
[2021-08-01 08:08] LABS: T3 Total - Triiodothyronine 1.46 ng/mL (0.6-1.81)
[2021-08-03 00:08] LABS: Thyroid Peroxidase AB < 8 IU/mL (0-34)
[2021-08-03 13:42] LABS: Thyroglobulin Antibody < 1.0 IU/mL (0.0-0.9)
== END | disposition home or self-care (01) ==
PROVIDERS: PCP Preventive Medicine Occupational Medicine; Referring Provider Nurse Practitioner Primary Care; Visit Provider Nurse Practitioner Primary Care
DX: E03.9 Hypothyroidism, unspecified (principal); E04.9 Nontoxic goiter, unspecified
CPT/HCPCS: 36415; 84439; 84443; 84480; 86376; 86800

== ENCOUNTER → 2021-09-27 | Outpatient (CLI) | payer OTHER, MEDICAID, SELFPAY ==
--- NOTE | 2021-09-27 12:05 | US_ITS ---
STUDY: THYROID ULTRASOUND REASON FOR EXAM: Female, 40 years old. Enlarged thyroid TECHNIQUE: Ultrasound evaluation of the thyroid was performed with real-time and static garcia-scale imaging. COMPARISON: None. FINDINGS: RIGHT LOBE: The right lobe of the thyroid gland measures 4.2 cm x 1.3 cm x 1.3 cm. There is a homogeneous echotexture. There is a 5 mm x 5 mm x 4 mm solid hypoechoic nodule in the lower lateral aspect of the right lobe of the thyroid. LEFT LOBE: The left lobe of the thyroid gland measures 3.4 cm x 1.4 cm x 1 cm. There is a homogeneous echotexture. There are no demonstrated solid, cystic or complex lesions. ISTHMUS: The isthmus measures 2 mm. The regional lymph nodes are normal. US/Thyroid IMPRESSION: 5 mm x 5 mm x 4 mm solid hypoechoic nodule in the lower pole of the right lobe laterally. Electronically Signed: Luca Schaefer MD at 12:46 EDT ,
== END | disposition home or self-care (01) ==
LOC: PSN 12:05
PROVIDERS: PCP Preventive Medicine Occupational Medicine; Referring Provider Nurse Practitioner Women's Health; Visit Provider Nurse Practitioner Women's Health
DX: E04.9 Nontoxic goiter, unspecified (principal)
CPT/HCPCS: 76536

== ENCOUNTER → 2021-10-30 | Outpatient (CLI) | payer OTHER, MEDICAID, SELFPAY ==
--- NOTE | 2021-10-30 08:19 | RAD_ITS ---
STUDY: X-RAY - ESOPHAGUS (BARIUM SWALLOW) WITH FLUOROSCOPY REASON FOR EXAM: Female, 41 years old. HOARSENESS/G ERD TECHNIQUE: 18 view(s) of the esophagus were obtained following swallowing of barium. FLUOROSCOPY TIME (if supplied): (26 seconds) minutes/seconds COMPARISON: None. FINDINGS: There is no demonstrated esophageal foreign body. There is no demonstrated stricture or mucosal abnormality. Normal gastroesophageal junction, without a demonstrated hiatal hernia. The patient ingested a 12 mm tablet of barium without any difficulty. Normal visualized aortic arch and descending thoracic aorta. Normal visualized pulmonary parenchyma. Normal visualized osseous structures of the thorax. RAD/Esophagus Dual Contrast IMPRESSION: Normal plain film x-ray examination (barium swallow) of the esophagus. Electronically Signed: Luca Schaefer MD at 10:04 EDT ,
--- NOTE | 2021-10-31 08:34 | PFT ---
INTRODUCTION: The patient is a 41-year-old female that presents for pulmonary function studies secondary to a diagnosis of asthma. Respiratory therapy reported good patient effort. Bronchodilators were used during testing. INTERPRETATION: Forced expiration spirometry demonstrates no evidence of a large airways obstructive ventilatory defect. There was a significant response to aerosolized bronchodilators. Spirograms are of good quality and plateau normally. Body plethysmography was performed and reveals lung volumes to be within normal limits. Diffusing capacity by single breath CO is likewise within normal limits. IMPRESSION: Stigmata of small airways disease with significant bronchodilator response.
== END | disposition home or self-care (01) ==
PROVIDERS: PCP Preventive Medicine Occupational Medicine; Referring Provider Otolaryngology; Visit Provider Nurse Practitioner Acute Care
DX: R49.0 Dysphonia (principal); K21.9 Gastro-esophageal reflux disease without esophagitis
CPT/HCPCS: 74221; 94060; 94726; 94729

== ENCOUNTER 2021-12-22 20:44 | Emergency (ER) | payer OTHER, MEDICAID, SELFPAY ==
[2021-12-22 20:45] VITALS: BP 142/78; PULSE 87; RESP 16; TEMP 37.1; O2SAT 98; BMI 32.5
--- NOTE | 2021-12-22 21:32 | EDS_ITS ---
HPI History of Present Illness Chief Complaint: Dental Informant: patient Onset/Context/Timing Onset: Days (3) Context: Gradual Onset Timing: Continuous Quality: Aching Location: Left upper molar Worsened by: Eating Relieved by: - (Nothing) Associated Symptoms Assocated Symptom - Dental: jaw swelling, cold sensitivity and hot sensitivity; Negative for fever or face swelling Narrative Narrative: Patient presents with left upper dental pain that has been getting worse over the past 3 days. Patient states she had a recent dental extraction of her left upper first molar. Patient states the pain around this area is getting worse. Patient denies any fevers or chills. Patient admits to some swelling around the extraction site. Patient also admits to some hot and cold sensitivity. Patient denies any difficulty breathing or difficulty swallowing. [facility] Medical History Anxiety and depression Asthma GERD (gastroesophageal reflux disease) depression Home Medications pantoprazole 40 mg tablet,delayed release 40 mg PO DAILY heartburn 03/30/13 [History Last Taken 01/03/20] budesonide-formoterol HFA 160 mcg-4.5 mcg/actuation aerosol inhaler 2 puff inhalation BID PRN breathing 02/15/20 [History Last Taken Unknown] montelukast 10 mg tablet 10 mg PO DAILY PRN allergy 02/15/20 [History Last Taken Unknown] albuterol sulfate 90 mcg/actuation aerosol inhaler 2 puff inhalation Q4H PRN shortness of breath or wheezing #1 ea 11/10/20 [Rx Last Taken Unknown] fluticasone propionate 50 mcg/actuation nasal spray,suspension 2 spray intranasal DAILY #16 grams 06/29/21 [Rx Last Taken Unknown] cetirizine 10 mg capsule 10 mg PO HS 08/15/21 [History Last Taken Unknown] citalopram 40 mg tablet 40 mg PO DAILY depression #90 tabs 08/15/21 [Rx Last Taken Unknown] fluconazole 150 mg tablet 150 mg PO .COMPLEX #3 tabs 11/12/21 [Rx Last Taken Unknown] sulfamethoxazole 800 mg-trimethoprim 160 mg tablet 1 tab PO BID #14 TABLETS 12/22/21 [Rx Last Taken Unknown] Allergy/AdvReac Type Severity Reaction Status Date / Time ampicillin Allergy Itching Verified 12/22/21 20:45 Fish Containing Products Allergy Shortness Verified 12/22/21 20:45 of breath Penicillins [PCN] Allergy Shortness Verified 12/22/21 20:45 of breath clindamycin AdvReac Pain in Verified 12/22/21 20:45 joints Family History Mother ADALBERTO III (cervical intraepithelial neoplasia grade III) with severe dysplasia Surgical History History of tubal ligation Hx of appendectomy Hx of cholecystectomy Social History adopted: No household members: family housing: house number of children: 5 current occupational status: employed current occupation: [employer] pets and animals: No history of recent travel: No Smoking Status: Former smoker second hand exposure: No alcohol intake: never substance use type: does not use caffeine: No what type of physical activity do you participate in: walking, bicycling and weight training frequency: 3-4 times per week seatbelt use: always do you feel safe at home: Yes additional social history: Boyfriend- Chaz ROWE JAE ED Constitutional Constitutional ED: Denies chills or fever(s) Eyes Eyes: Denies blurry vision or change in vision ENT ENT ED: Denies rhinorrhea or sore throat Cardiovascular Cardiovascular: Denies chest pain or palpitations Respiratory/Chest Respiratory/Chest: Denies cough or dyspnea Gastrointestinal Gastrointestinal: Denies nausea or vomiting Genitourinary Genitourinary ED: Denies dysuria or hematuria Musculoskeletal Musculoskeletal: Denies back pain or neck pain Integumentary Denies abscess or rash Neurologic Neurologic: Denies headache(s) or weakness Allergic/Immunologic Allergic/Immunologic ED: Denies mouth swelling or urticaria EXAM Physical Exam Const Vital Signs: 12/22/21 20:45 Temperature 98.7 F Temperature Source Temporal Pulse Rate 87 Respiratory Rate 16 Blood Pressure 142/78 H Blood Pressure Mean 99 Pulse Ox 98 Oxygen Delivery Method Room Air Positive well nourished, well developed and obese General Appearance ED: well developed and NAD Nutritional Appearance: obese HEENT HEENT Narrative: There is some gingival edema at the extraction site of the left upper first molar. There is no fluctuance. There is no discharge or drainage. There is so me mild erythema. There is no bleeding noted. Mouth ED: Yes oral and palatal mucosa normal, Yes lips normal and Yes tongue normal Mouth: oral and palatal mucosa normal, lips normal and tongue normal Throat: posterior oropharynx normal Eyes PERRL and EOMs intact bilaterally Neck supple and no JVD General: normal visual inspection; Negative for anterior neck swelling, tenderness or submandibular swelling Neuro oriented x3, CN's II-XII intact bilaterally, moves all extremities, no focal motor deficits and no sensory deficits noted Sensorium / Orientation: alert Motor Exam: strength 5/5 throughout Psych mental status grossly normal MDM MDM MDM Narrative Medical decision making narrative: Patient was given a dose of Bactrim here. Patient was given a prescription for Bactrim. Patient was instructed to take Tylenol or ibuprofen as needed for any pain. Patient was instructed to follow-up with her dentist in 3 to 5 days. Patient understood and was agreeable with the plan. All questions were answered. Discharge Plan Triage Chief Complaint: Dental ED Provider: Bola Petersen Dx/Rx/DC Orders Clinical Impression: Dental infection Instructions: ED Dental Pain, ED Dental Abscess Prescriptions: New sulfamethoxazole-trimethoprim [sulfamethoxazole-trimethoprim] 800-160 mg tablet 1 tab PO BID Qty: 14 0RF No Action fluticasone propionate 50 mcg/actuation spray,suspension 2 spray intranasal DAILY Qty: 16 3RF cetirizine 10 mg capsule 10 mg PO HS citalopram 40 mg tablet 40 mg PO DAILY Qty: 90 3RF pantoprazole 40 MG tablet 40 mg PO DAILY budesonide-formoterol 160-4.5 mcg/actuation HFA aerosol inhaler 2 puff INHALATION BID PRN (Reason: breathing) montelukast 10 mg tablet 10 mg PO DAILY PRN (Reason: allergy) albuterol sulfate 90 mcg/actuation HFA aerosol inhaler 2 puff INHALATION Q4H PRN (Reason: shortness of breath or wheezing) Qty: 1 3RF Rx Instructions: administer with spacer fluconazole 150 mg tablet 150 mg PO .COMPLEX Qty: 3 0RF Rx Instructions: 150 mg PO every other day X 3 doses. Primary Care Provider: Surendra Chavarria Referrals: Surendra Chavarria DO [Primary Care Provider] - 5-7 Days Dentist,Your [STAFF PHYSICIAN] - 3-5 Days Disposition Disposition: Home, Self Care
[2021-12-22] MEDS: Smz/Tmp Ds Tablet 1 TABLET PO (22:11)
== END 2021-12-22 22:27 | disposition home or self-care (01) ==
PROVIDERS: Emergency Provider Emergency Medicine; PCP Preventive Medicine Occupational Medicine; Visit Provider Emergency Medicine
DX: K04.7 Periapical abscess without sinus (principal); Z87.891 Personal history of nicotine dependence; J45.909 Unspecified asthma, uncomplicated; F41.9 Anxiety disorder, unspecified; F32.A Depression, unspecified; K21.9 Gastro-esophageal reflux disease without esophagitis
CPT/HCPCS: 99283

== ENCOUNTER 2021-12-28 13:36 | Emergency (ER) | payer MEDICAID, SELFPAY ==
[2021-12-28 13:38] VITALS: BP 118/90; PULSE 117; RESP 20; TEMP 36.4; O2SAT 99; BMI 32.2
--- NOTE | 2021-12-28 15:05 | EX.ED.DYSGE1 ---
HPI <SONIYA Flood - Last Filed: 12/28/21 15:44> History of Present Illness Chief Complaint: Shortness of Breath Narrative Narrative: Patient is a 41-year-old female with history of asthma, anxiety, depression presents to the emergency department with 2 days of generalized congestion in her nose and chest. Patient has been dealing with a infected tooth on her left upper jaw, she has been on 2 rounds of antibiotics, has seen a dentist and has pulled and pulled. Patient states she still has pain from that and she is just concerned that any infection could have went to her chest. Her mother had similar symptoms however she did get better. Patient states she is been using her inhalers however still feels tight. Denies any sputum with her cough. PFSH <SONIYA Flood - Last Filed: 12/28/21 15:44> [facility] Medical History Anxiety and depression Asthma GERD (gastroesophageal reflux disease) depression Home Medications pantoprazole 40 mg tablet,delayed release 40 mg PO DAILY heartburn 03/30/13 [History Last Taken 01/03/20] budesonide-formoterol HFA 160 mcg-4.5 mcg/actuation aerosol inhaler 2 puff inhalation BID PRN breathing 02/15/20 [History Last Taken Unknown] montelukast 10 mg tablet 10 mg PO DAILY PRN allergy 02/15/20 [History Last Taken Unknown] albuterol sulfate 90 mcg/actuation aerosol inhaler 2 puff inhalation Q4H PRN shortness of breath or wheezing #1 ea 11/10/20 [Rx Last Taken Unknown] fluticasone propionate 50 mcg/actuation nasal spray,suspension 2 spray intranasal DAILY #16 grams 06/29/21 [Rx Last Taken Unknown] cetirizine 10 mg capsule 10 mg PO HS 08/15/21 [History Last Taken Unknown] citalopram 40 mg tablet 40 mg PO DAILY depression #90 tabs 08/15/21 [Rx Last Taken Unknown] fluconazole 150 mg tablet 150 mg PO .COMPLEX #3 tabs 11/12/21 [Rx Last Taken Unknown] naproxen 500 mg tablet 500 mg PO BID PRN #20 tabs 12/22/21 [Rx Last Taken Unknown] sulfamethoxazole 800 mg-trimethoprim 160 mg tablet 1 tab PO BID #14 TABLETS 12/22/21 [Rx Last Taken Unknown] Allergy/AdvReac Type Severity Reaction Status Date / Time ampicillin Allergy Itching Verified 12/28/21 13:37 Fish Containing Products Allergy Shortness Verified 12/28/21 13:37 of breath Penicillins [PCN] Allergy Shortness Verified 12/28/21 13:37 of breath clindamycin AdvReac Pain in Verified 12/28/21 13:37 joints Family History Mother ADALBERTO III (cervical intraepithelial neoplasia grade III) with severe dysplasia Surgical History History of tubal ligation Hx of appendectomy Hx of cholecystectomy Social History adopted: No household members: family housing: house number of children: 5 current occupational status: employed current occupation: [employer] pets and animals: No history of recent travel: No Smoking Status: Former smoker second hand exposure: No alcohol intake: never substance use type: does not use caffeine: No what type of physical activity do you participate in: walking, bicycling and weight training frequency: 3-4 times per week seatbelt use: always do you feel safe at home: Yes additional social history: Boyfriend- Chaz ROWE <SONIYA Flood - Last Filed: 12/28/21 15:44> JAE ROWE Narrative Constitutional: Negative for fever, chills, weight loss, weakness Eyes: Negative for vision loss, vision change, double vision ENT: Negative for any sore throat, ear pain. Positive for congestion Cardiovascular: Negative for any chest pain, tightness, palpitations Respiratory: Negative for any sputum production, hemoptysis, dyspnea, dyspnea on exertion, orthopnea. Positive for cough Gastrointestinal: Negative for any abdominal pain, nausea, vomiting, diarrhea, constipation, blood in stool, blood in vomit : Negative for any urinary frequency, dysuria, retention, blood in urine Muscle skeletal: Negative for any muscle joint pain, stiffness, myalgias, arthralgias, neck pain, back pain Neurological: Negative for any headache, syncope, numbness or tingling, dizziness Skin: Negative for any rashes, lumps, itching, abrasions, lacerations Psychiatric: Negative for any depression, anxiety, stress, suicidal ideation, homicidal ideation Hematologic: Negative for any easy bruising, excessive bruising, easy bleeding Allergies: Negative for any eczema, hives, rash EXAM <SONIYA Flood - Last Filed: 12/28/21 15:44> Physical Exam Narrative Exam Narrative: Vital signs reviewed. Patient appears to be in no distress. HEET: Head normocephalic atraumatic, TMs clear bilaterally. Posterior pharynx is clear, moist mucous membranes. Nares clear bilaterally. Patient's left upper jaw appears to be healing, no signs or symptoms of drainage, abscess formation. Neck: Supple with no lymphadenopathy or tenderness. No signs of meningismus, negative jolt sign. Cardiac: Regular rate and rhythm minor systolic murmur, no gallops or rubs, equal peripheral pulses bilaterally. Respiratory: Lungs clear to auscultation bilaterally. No chest tenderness. Abdomen: Soft, nontender, nondistended. No abdominal bruit or pulsatile masses. No hepatosplenomegaly Extremities: No peripheral edema, no signs of gross trauma or deformity. Active full range of motion of all extremities. Neuro: Cranial nerves II through XII intact, no focal neurological deficits. Skin: Clean dry and intact with no rash, purpura, petechiae, vesicles or pustules. Backs/flank: No CVA tenderness, no midline spinal tenderness, no deformity. Psych: Normal mood and affect. No SI, HI or acute psychosis. Const Vital Signs: 12/28/21 13:38 12/28/21 13:47 Temperature 97.5 F L Temperature Source Temporal Pulse Rate 117 H Respiratory Rate 20 H Respiratory Effort Short of Breath Blood Pressure 118/90 H Blood Pressure Mean 99 Pulse Ox 99 Oxygen Delivery Method Room Air <Dr. Tevin James MD - Last Filed: 12/28/21 15:24> Physical Exam Const Vital Signs: 12/28/21 13:38 12/28/21 13:47 Temperature 97.5 F L Temperature Source Temporal Pulse Rate 117 H Respiratory Rate 20 H Respiratory Effort Short of Breath Blood Pressure 118/90 H Blood Pressure Mean 99 Pulse Ox 99 Oxygen Delivery Method Room Air MDM <SONIYA Flood - Last Filed: 12/28/21 15:44> MDM Radiography Diagnostic Testing: Clinical Impression(s) from Imaging Studies Chest X-Ray 12/28/21 15:13 IMPRESSION: Normal x-ray examination of the chest. Electronically Signed: Luca Schaefer MD at 15:26 EDT , Treatment and Re-Evaluation Narrative: Patient appears well, patient appears nontoxic, vital signs are stable. Patient presents the emergency department for 2 days of generalized congestion, runny nose. Patient's mouth from her oral surgery greater than 2 weeks ago looks well. Patient is not hypoxic, patient did receive a two-view chest x-ray inter by ER physician is negative for any acute process. Patient's physical examination was grossly unremarkable, negative for any adventitious lung sounds. Patient did receive some breathing treatments, she will continue her inhalers daily, COVID-19 was negative. Patient instructed use ibuprofen, Tylenol for any pain muscle aches. At this time there is no indication for any steroids or antibiotic use. Patient will be diagnosed with viral syndrome. <Dr. Tevin James MD - Last Filed: 12/28/21 15:24> [facility] Narrative Medical decision making narrative: I have personally performed a face to face assessment of the patient and have reviewed the JESUS Note. I performed a substantive portion of the visit including all aspects of the following. My luna findings include: History is [41-year-old female history of anxiety and asthma. States she has had URI symptoms since yesterday. Mild shortness of breath. No significant wheezing. No fever. Nonproductive cough. No chills. No chest pain or hemoptysis. No history of DVT or PE.] Exam is [well-appearing 41-year-old female. Walking in the room. Vital signs stable afebrile. Pulse ox 9 9% room air no signs hypoxia. H EENT exam unremarkable. Neck nontender no JVD. Lungs clear to auscultation bilaterally. Heart regular rate and rhythm. Abdomen soft nontender. Extremities moves all 4. Calves are nontender without edema or cords.] Medical Decision Making [patient with viral URI and asthma flare. Treated with aerosols. Currently she does not need steroids. Chest x-ray is normal. Awaiting COVID test. She will be discharged home] Other additions or changes: [None] Radiography Chest X-Ray - ED: 2 View, Read by ED Physician, Heart, Lungs, Mediastinum, Bony Structures, No Acute Disease and Chronic Changes Diagnostic Testing: Clinical Impression(s) from Imaging Studies Chest X-Ray 12/28/21 15:13 IMPRESSION: Normal x-ray examination of the chest. Electronically Signed: Luca Schaefer MD at 15:26 EDT , Chest x-ray, 2 views, AP and lateral interpreted myself shows no acute abnormality. Normal cardiac silhouette. No infiltrate. Discharge Plan Triage Chief Complaint: Shortness of Breath ED Midlevel Provider: Quan Varghese ED Provider: Tevin James Dx/Rx/DC Orders Clinical Impression: Viral syndrome, URI (upper respiratory infection) Instructions: ED URI, Viral, No Abx (Adult) Prescriptions: No Action fluticasone propionate 50 mcg/actuation spray,suspension 2 spray intranasal DAILY Qty: 16 3RF cetirizine 10 mg capsule 10 mg PO HS citalopram 40 mg tablet 40 mg PO DAILY Qty: 90 3RF pantoprazole 40 MG tablet 40 mg PO DAILY budesonide-formoterol 160-4.5 mcg/actuation HFA aerosol inhaler 2 puff INHALATION BID PRN (Reason: breathing) montelukast 10 mg tablet 10 mg PO DAILY PRN (Reason: allergy) sulfamethoxazole-trimethoprim [sulfamethoxazole-trimethoprim] 800-160 mg tablet 1 tab PO BID Qty: 14 0RF naproxen 500 mg tablet 500 mg PO BID PRN Qty: 20 0RF albuterol sulfate 90 mcg/actuation HFA aerosol inhaler 2 puff INHALATION Q4H PRN (Reason: shortness of breath or wheezing) Qty: 1 3RF Rx Instructions: administer with spacer fluconazole 150 mg tablet 150 mg PO .COMPLEX Qty: 3 0RF Rx Instructions: 150 mg PO every other day X 3 doses. Primary Care Provider: Surendra Chavarria Referrals: Surendra Chavarria DO [Primary Care Provider] - Activity Restrictions/Additional Instructions: Please continue to take your inhalers. Use Tylenol, ibuprofen for any pain or fevers. Disposition Disposition: Home, Self Care
--- NOTE | 2021-12-28 15:13 | RAD_ITS ---
STUDY: X-RAY CHEST REASON FOR EXAM: Female, 41 years old. Cough. TECHNIQUE: Comparison is made with prior study of 10/27/2020. COMPARISON: None. FINDINGS: The lungs are clear and expanded. Scattered calcified granulomas. There is no demonstrated pleural abnormality. Normal size heart. Normal mediastinum and ally. Normal visualized pulmonary arteries. Normal visualized aortic arch and descending thoracic aorta. Normal visualized thoracic spine. Normal visualized ribs, clavicles, and shoulders. There is no demonstrated abnormality of the visualized soft tissue structures of the upper abdomen. RAD/Chest PA and Lateral IMPRESSION: Normal x-ray examination of the chest. Electronically Signed: Luca Schaefer MD at 15:26 EDT ,
[2021-12-28] MEDS: Albuterol 2.5 MG/3 ML VIAL.NEB. INHALATION (15:24)
[2021-12-28] MEDS: Ipratropium/Albuterol Sulfate 3 ML AMPUL.NEB INHALATION (15:24)
[2021-12-28 15:48] VITALS: PULSE 100; RESP 18; O2SAT 98
== END 2021-12-28 15:49 | disposition home or self-care (01) ==
PROVIDERS: Emergency Provider Emergency Medicine; PCP Preventive Medicine Occupational Medicine; Visit Provider Emergency Medicine
DX: J06.9 Acute upper respiratory infection, unspecified (principal); B34.9 Viral infection, unspecified; R06.02 Shortness of breath; J45.909 Unspecified asthma, uncomplicated; F41.9 Anxiety disorder, unspecified; F32.9 Major depressive disorder, single episode, unspecified; K21.9 Gastro-esophageal reflux disease without esophagitis; Z79.899 Other long term (current) drug therapy; Z87.891 Personal history of nicotine dependence
CPT/HCPCS: 71046; 87811; 99282

== ENCOUNTER 2022-03-07 15:24 | Emergency (ER) | payer MEDICAID, SELFPAY ==
[2022-03-07 15:25] VITALS: BP 169/126; PULSE 118; RESP 16; TEMP 36.2; O2SAT 97; BMI 32.8
--- NOTE | 2022-03-07 15:51 | EKG12_ITS ---
Test Reason : CP Blood Pressure : / mmHG Vent. Rate : 094 BPM Atrial Rate : 094 BPM P-R Int : 140 ms QRS Dur : 082 ms QT Int : 356 ms P-R-T Axes : 058 060 044 degrees QTc Int : 445 ms Normal sinus rhythm with sinus arrhythmia Normal ECG Confirmed by PAYAL DOW, ENRIQUE ([id number]), book editor CHANDLER VYAS ([id number]) on 03/09/2022 7:25:27 AM Referred By: Confirmed By:ENRIQUE MOE MD
--- NOTE | 2022-03-07 15:56 | ED.VIS.CHEST ---
HPI History of Present Illness Chief Complaint: Chest Pain Informant: patient Narrative Narrative: Patient is a 41-year-old female with history of anxiety and depression on Celexa who GERD presenting with chest pain. Patient states she went to work today and felt it was a normal day. She notes she is had more stress at work as she does not feel that she is treated well. She got home and started cleaning her house. She did suddenly became very anxious felt a burning sensation in her chest and her heart was racing. Admits to drinking to [employer] today. When she was younger she was diagnosed with benign palpitations on a Holter monitor. She has had 1 other episode like this and it was attributed to caffeine. Patient is tearful and very anxious at this time. She denies any swelling of her legs. She denies any history of DVT or PE. She does not see a counselor. There is no family history of heart problems at a young age. Does admit to a history of heart murmur. [facility] Medical History Anxiety Anxiety and depression Asthma GERD (gastroesophageal reflux disease) depression Home Medications pantoprazole 40 mg tablet,delayed release 40 mg PO DAILY heartburn 03/30/13 [History Last Taken 01/03/20] budesonide-formoterol HFA 160 mcg-4.5 mcg/actuation aerosol inhaler 2 puff inhalation BID PRN breathing 02/15/20 [History Last Taken Unknown] montelukast 10 mg tablet 10 mg PO DAILY PRN allergy 02/15/20 [History Last Taken Unknown] albuterol sulfate 90 mcg/actuation aerosol inhaler 2 puff inhalation Q4H PRN shortness of breath or wheezing #1 ea 11/10/20 [Rx Last Taken Unknown] fluticasone propionate 50 mcg/actuation nasal spray,suspension 2 spray intranasal DAILY #16 grams 06/29/21 [Rx Last Taken Unknown] cetirizine 10 mg capsule 10 mg PO HS 08/15/21 [History Last Taken Unknown] citalopram 40 mg tablet 40 mg PO DAILY depression #90 tabs 08/15/21 [Rx Last Taken Unknown] naproxen 500 mg tablet 500 mg PO BID PRN #20 tabs 12/22/21 [Rx Last Taken Unknown] sulfamethoxazole 800 mg-trimethoprim 160 mg tablet 1 tab PO BID #14 TABLETS 12/22/21 [Rx Last Taken Unknown] fluconazole 150 mg tablet 150 mg PO .COMPLEX #2 tabs 02/19/22 [Rx Last Taken Unknown] hydroxyzine HCl 25 mg tablet 25 mg PO TID PRN anxiety #20 tabs 03/07/22 [Rx Last Taken Unknown] Allergy/AdvReac Type Severity Reaction Status Date / Time ampicillin Allergy Itching Verified 03/07/22 15:28 Fish Containing Products Allergy Shortness Verified 03/07/22 15:28 of breath Penicillins [PCN] Allergy Shortness Verified 03/07/22 15:28 of breath clindamycin AdvReac Pain in Verified 03/07/22 15:28 joints Family History Mother ADALBERTO III (cervical intraepithelial neoplasia grade III) with severe dysplasia Surgical History History of tubal ligation Hx of appendectomy Hx of cholecystectomy Social History adopted: No household members: family housing: house number of children: 5 current occupational status: employed current occupation: [employer] pets and animals: No history of recent travel: No Smoking Status: Former smoker second hand exposure: No alcohol intake: never substance use type: does not use caffeine: No what type of physical activity do you participate in: walking, bicycling and weight training frequency: 3-4 times per week seatbelt use: always do you feel safe at home: Yes additional social history: Boyfriend- Chaz ROWE ED Constitutional Constitutional ED: Denies chills or fever(s) Eyes Eyes: Denies blurry vision or change in vision ENT ENT ED: Denies rhinorrhea or sore throat Cardiovascular Cardiovascular: Reports as per HPI, chest pain and racing heartbeat Respiratory/Chest Respiratory/Chest: Denies cough, dyspnea or dyspnea on exertion Gastrointestinal Gastrointestinal: Denies abdominal pain, nausea or vomiting Genitourinary Genitourinary ED: Reports other Details: Recently finished antibiotics for urinary tract infection ; Denies dysuria, hematuria or urinary frequency Musculoskeletal Musculoskeletal: Denies arthralgias or myalgias Integumentary Denies rash Neurologic Neurologic: Denies headache(s) or weakness Psychiatric Psychiatric: Reports anxiety; Denies depression, suicidal ideation or suicidal thoughts Hematologic/Lymphatic Hematologic/Lymphatic: Denies easy bleeding or easy bruising EXAM Physical Exam Const Vital Signs: 03/07/22 15:25 03/07/22 15:49 03/07/22 16:10 Temperature 97.1 F L Temperature Source Temporal Pulse Rate 118 H 101 H Respiratory Rate 16 18 Respiratory Effort Normal Non-Labored Respiratory Pattern Normal Blood Pressure 169/126 H 140/98 H Blood Pressure Mean 140 112 Pulse Ox 97 100 Oxygen Delivery Method Room Air Room Air 03/07/22 17:00 Temperature Temperature Source Pulse Rate 108 H Respiratory Rate 20 H Respiratory Effort Respiratory Pattern Blood Pressure 136/81 H Blood Pressure Mean 99 Pulse Ox 98 Oxygen Delivery Method Room Air Positive well nourished and well developed Constitutional Narrative: Crying General Appearance ED: well developed HEENT Reports moist mucous membranes normocephalic and atraumatic Eyes PERRL and EOMs intact bilaterally Neck supple and no JVD Chest Wall inspection of chest normal and palpation of chest normal Resp normal respiratory effort and clear to auscultation bilaterally Cardio regular rhythm and no murmurs Rate: tachycardic Peripheral Pulses: pulses 2+ throughout GI normal to inspection, nondistended, normoactive bowel sounds and soft to palpation Back/Spine no CVA tenderness Extremity normal to inspection General Extremety ED: Negative for edema or tenderness General Extremity: Negative for edema Neuro oriented x3 Neuro Narrative: No focal deficits appreciated Sensorium / Orientation: awake Psych Psych Narrative: Denies SI or HI. Mood & Affect: anxious and tearful Skin no rashes or lesions noted Heart Score History: Slightly/Non-Suspicious ECG: Normal Age: </= 45 years Risk Factors: 1 or 2 Risk Factors Troponin: </= Normal Limit Score: 1 MDM MDM MDM Narrative Medical decision making narrative: Patient is evaluated for sudden onset of chest discomfort, racing heart and anxiety. Patient is quite tearful. Suspect she is having more of a panic attack. Given the sudden onset of her symptoms and significant tachycardia upon arrival I did obtain cardiac work-up including troponin, EKG as well as a D-dimer and TSH. Patient is a mild leukocytosis of 12.9 which is nonspecific. D-dimer is normal at 0.28 Evalose patient for pulmonary emboli so I do not think a CTA is indicated. High since he troponin is less than 3 and EKG does not show ischemic changes other acute abnormalities. I do not suspect ACS or pericarditis/myocarditis as a cause of her symptoms. TSH is mildly elevated 5.44. Patient states she has a history of a polyp/nodule on her thyroid and is actually been referred to endocrinology. She will continue follow-up. She is given a dose of Ativan in the ER with significant provement of her symptoms. She does have a ride home. She denies any HI or SI and I do not think she requires emergent psychiatric evaluation however we did discuss that it would be a good idea for her to go back to her counselor. She is a lot of stress in her life and his mother of 6 children. Patient be given a prescription for short course of hydroxyzine. Her potassium was mildly low and she is encouraged to increase her potassium supplement with thing such as bananas or sweet potatoes. Patient verbalizes agreement understand this plan. Discharged home in stable condition. Is given return precautions. Lab Data Attestation: I reviewed the patient's lab results. Labs: Laboratory Results - last 24 hr 03/07/22 03/07/22 03/07/22 15:45 15:45 15:45 WBC 12.9 H RBC 4.64 Hgb 13.0 Hct 41.2 MCV 88.8 MCH 28.0 MCHC 31.6 L RDW Std Deviation 42.7 RDW Coeff of Lamine 13.2 Plt Count 433 MPV 9.0 Immature Gran % (Auto) 0.500 Neut % (Auto) 52.9 Lymph % (Auto) 36.5 [place] % (Auto) 7.1 Eos % (Auto) 2.6 Baso % (Auto) 0.4 Absolute Neuts (auto) 6.8 Absolute Lymphs (auto) 4.71 H Nucleated RBC % 0 D-Dimer Quant (PE/DVT) 0.28 Sodium 140 Potassium 3.2 L Chloride 107 Carbon Dioxide 27.0 Anion Gap 6 BUN 11 Creatinine 0.69 Estim Creat Clear Calc 106.45 Est GFR (MDRD) Af Amer 122 Est GFR (MDRD) Non-Af 101 BUN/Creatinine Ratio 16.0 Glucose 100 Calcium 8.2 L Troponin I High Sens < 3 L TSH 5.44 H Radiography Chest X-Ray - ED: 2 View, Read by ED Physician, Read by Radiologist and No Acute Disease Diagnostic Testing: Clinical Impression(s) from Imaging Studies Chest X-Ray 03/07/22 16:15 IMPRESSION: No radiographic evidence of acute cardiopulmonary disease. Electronically Signed: Andrew Ordaz MD at 16:51 EST Reading Location ID and State: [address] [place] [address] Tel , Service support , Rhythm Strip Rhythm Strip: Sinus Rhythm Rate: 94 Ectopy: None EKG Initial EKG: Attestation: I personally reviewed and interpreted this EKG as follows: Interpretation: Sinus Rhythm Comments: Normal sinus rhythm Rate of 94 bpm Normal axis Normal intervals Normal ST segments Compared to prior EKG upon 07/24/2021 patient has Discharge Plan Triage Chief Complaint: Chest Pain ED Provider: Liat Ryan Dx/Rx/DC Orders Clinical Impression: Heart palpitations, Anxiety attack Instructions: ED Anxiety Reaction, ED Palpitations Prescriptions: New hydroxyzine HCl 25 mg tablet 25 mg PO TID PRN (Reason: anxiety) Qty: 20 0RF No Action fluticasone propionate 50 mcg/actuation spray,suspension 2 spray intranasal DAILY Qty: 16 3RF cetirizine 10 mg capsule 10 mg PO HS citalopram 40 mg tablet 40 mg PO DAILY Qty: 90 3RF pantoprazole 40 MG tablet 40 mg PO DAILY budesonide-formoterol 160-4.5 mcg/actuation HFA aerosol inhaler 2 puff INHALATION BID PRN (Reason: breathing) montelukast 10 mg tablet 10 mg PO DAILY PRN (Reason: allergy) sulfamethoxazole-trimethoprim [sulfamethoxazole-trimethoprim] 800-160 mg tablet 1 tab PO BID Qty: 14 0RF naproxen 500 mg tablet 500 mg PO BID PRN Qty: 20 0RF albuterol sulfate 90 mcg/actuation HFA aerosol inhaler 2 puff INHALATION Q4H PRN (Reason: shortness of breath or wheezing) Qty: 1 3RF Rx Instructions: administer with spacer fluconazole 150 mg tablet 150 mg PO .COMPLEX Qty: 2 0RF Rx Instructions: 150 mg PO now and repeat in 3 days Primary Care Provider: Surendra Chavarria Referrals: Counseling,Center [Group of Physicians] - As Needed Surendra Chavarria DO [Primary Care Provider] - Disposition Disposition: Home, Self Care
[2022-03-07] MEDS: LORazepam 2 MG/ML Syringe 0.5 MG IV (16:07)
[2022-03-07 16:10] VITALS: BP 140/98; PULSE 101; RESP 18; O2SAT 100
--- NOTE | 2022-03-07 16:15 | RAD_ITS ---
INDICATION: palpitations EXAMINATION/TECHNIQUE: X-RAY - XR Chest 2 Views COMPARISON: 12/28/2021 FINDINGS: LINES/DEVICES: None. LUNGS: No consolidation, edema or effusion. No pneumothorax. MEDIASTINUM AND CARDIOVASCULAR STRUCTURES: Cardiac silhouette not enlarged. Central airways and mediastinal contour are unremarkable. BONES AND SOFT TISSUES: Unremarkable. RAD/Chest PA and Lateral IMPRESSION: No radiographic evidence of acute cardiopulmonary disease. Electronically Signed: Andrew Ordaz MD at 16:51 EST ,
[2022-03-07 16:44] LABS: Absolute Lymphocyte Count 4.71 X10^3/uL (0.83-4.51); Absolute Neutrophil Count 6.8 X10^3/uL (2.0-7.7); Basophil# 0.05 X10^3/uL; Basophil% 0.4 % (0-1); Eosinophil# 0.33 X10^3/uL; Eosinophils% 2.6 % (0-5); Hematocrit 41.2 % (37-47); Lymphocyte # 4.71 X10^3/ul (0.83-4.51); Lymphocyte % 36.5 % (19-41); Mean Corp Hgb Conc 31.6 g/dL (32-36); Mean Corpuscular Volume 88.8 fL (81-99); Monocyte# 0.91 X10^3/uL; Monocyte% 7.1 % (0-10); NRBC Flagged by Analyzer 0 % (0-5); Neutrophil # 6.83 X10^3/uL (2.7-7.7); Neutrophil % 52.9 % (47-70); Platelet Count 433 K/mm3 (150-450); RBC Distribution Width CV 13.2 % (11.6-14.6); RBC Distribution Width SD 42.7 fl (35.1-43.9); Red Blood Count 4.64 M/mm3 (4.2-5.4); White Blood Count 12.9 K/mm3 (4.4-11.0)
[2022-03-07 17:00] VITALS: BP 136/81; PULSE 108; RESP 20; O2SAT 98
[2022-03-07 17:00] LABS: D-Dimer Quantitative (DVT/PE) 0.28 FEU/ug/m (0.27-0.49)
[2022-03-07 17:14] LABS: Anion Gap 6 (5-15); BUN 11 mg/dL (7-18); Calcium,Total 8.2 mg/dL (8.5-10.1); Chloride 107 mmol/L (98-107); Creatinine, Serum 0.69 mg/dL (0.55-1.02); EST Glomerular Filtration Rate 101 mL/min (>60); Est Glom Filt Rate - Afr Amer 122 mL/min (>60); Estimated Creatinine Clearance 106.45 ml/min; Glucose 100 mg/dL (74-106); Potassium 3.2 mmol/L (3.5-5.1); Sodium Level 140 mmol/L (136-145); Thyroid Stim Hormone (TSH) 5.44 uIU/mL (0.358-3.74); Troponin-I HS (w/2H Reflex) < 3 pg/mL (3.0-54.0)
[2022-03-07 18:41] LABS: Reflex Troponin-HS? (from REC) Y
--- NOTE | 2022-03-07 18:54 | SUR.HOLD ---
per dr hamilton, no need for repeat troponin at this time.
[2022-03-07 18:58] VITALS: BP 130/83; PULSE 90; RESP 14; O2SAT 99
== END 2022-03-07 19:04 | disposition home or self-care (01) ==
PROVIDERS: Emergency Provider Emergency Medicine; PCP Preventive Medicine Occupational Medicine; Visit Provider Emergency Medicine
DX: R00.2 Palpitations (principal); F41.9 Anxiety disorder, unspecified; Z87.891 Personal history of nicotine dependence
CPT/HCPCS: 71046; 80048; 84443; 84484; 85025; 85379; 93005; 96374; 99284; A4216

== ENCOUNTER → 2022-04-16 | Outpatient (CLI) | payer MEDICAID, SELFPAY ==
[2022-04-16 13:51] LABS: Absolute Lymphocyte Count 3.11 X10^3/uL (0.83-4.51); Absolute Neutrophil Count 8.1 X10^3/uL (2.0-7.7); Basophil# 0.08 X10^3/uL; Basophil% 0.6 % (0-1); Eosinophil# 0.49 X10^3/uL; Eosinophils% 3.9 % (0-5); Hematocrit 38.9 % (37-47); Hemoglobin 12.6 g/dL (12.0-15.0); Lymphocyte # 3.11 X10^3/ul (0.83-4.51); Lymphocyte % 24.7 % (19-41); Mean Corp Hgb Conc 32.4 g/dL (32-36); Mean Corpuscular Hgb 28.1 pg (27.0-32.0); Mean Corpuscular Volume 86.6 fL (81-99); Mean Platelet Vol. 8.9 fl (6.2-12.0); Monocyte% 6.3 % (0-10); NRBC Flagged by Analyzer 0 % (0-5); Neutrophil # 8.08 X10^3/uL (2.7-7.7); Neutrophil % 64.2 % (47-70); Platelet Count 371 K/mm3 (150-450); Red Blood Count 4.49 M/mm3 (4.2-5.4); White Blood Count 12.6 K/mm3 (4.4-11.0)
[2022-04-16 15:38] LABS: Red Blood Cells-Urine 0 SEEN /hpf (0-5)
[2022-04-16 15:49] LABS: Color, Urine Yellow (Yellow); Glucose, Dipstick Normal (Normal); Ketone-Dipstick 5 mg/dl (Negative); Leukocyte Esterase-Dipstick 500 /ul (Negative); Nitrite-Dipstick Negative (Negative); Occult Blood-Urine 150 /ul (Negative); Protein-Dipstick 100 mg/dl (Negative); Urine Bilirubin Dipstick Negative (Negative); Urine Clarity Turbid (Clear); Urine Urobilinogen 1 mg/dl (Normal)
[2022-04-16 15:56] LABS: White Blood Cells >100 SEEN /hpf (0-5)
[2022-04-16 15:57] LABS: Bacteria 3+ /hpf (None Seen); Squamous Epithelial Cells - UA 0-5 SEEN /hpf (5-10)
[2022-04-21 00:07] LABS: Alternaria tenuis <0.10 kU/L (Class 0); Ash, White <0.10 kU/L (Class 0); Aspergillus fumigatus <0.10 kU/L (Class 0); Bermuda Grass <0.10 kU/L (Class 0); Birch <0.10 kU/L (Class 0); Black Walnut <0.10 kU/L (Class 0); Cat Hair / Dander,Stand <0.10 kU/L (Class 0); Cedar, Mountain <0.10 kU/L (Class 0); Cladosporium herbarum <0.10 kU/L (Class 0); Cockroach, American <0.10 kU/L (Class 0); Cottonwood <0.10 kU/L (Class 0); D farinae Mite <0.10 kU/L (Class 0); D pteronyssinus <0.10 kU/L (Class 0); Dog Epithelia <0.10 kU/L (Class 0); Elm, American White <0.10 kU/L (Class 0); Immunoglobulin E 27 IU/mL (6-495); Maple/Box Elder <0.10 kU/L (Class 0); Mulberry, White <0.10 kU/L (Class 0); Oak, White <0.10 kU/L (Class 0); Pecan <0.10 kU/L (Class 0); Penicillium Notatum <0.10 kU/L (Class 0); Pigweed, Rough <0.10 kU/L (Class 0); Ragweed, Short/Common <0.10 kU/L (Class 0); Russian Thistle <0.10 kU/L (Class 0); Sheep Sorrel <0.10 kU/L (Class 0); Sycamore, American <0.10 kU/L (Class 0); Timothy Grass <0.10 kU/L (Class 0)
[2022-04-21 14:07] LABS: Aspirgillus flavus Negative (Neg:<1:1); Aspirgillus fumigatus Negative (Neg:<1:1); Aspirgillus niger Negative (Neg:<1:1); Cytoplasmic Ab (C-ANCA) <1:20 titer (Neg:<1:20)
[2022-04-21 22:29] LABS: Mouse Urine <0.10 kU/L (Class 0)
[2022-04-21 22:32] LABS: Immunoglobulin E 25 IU/mL (6-495); Perinuclear Ab (P-ANCA) <1:20 titer (Neg:<1:20)
== END | disposition home or self-care (01) ==
PROVIDERS: Physician Assistant Surgical; PCP Preventive Medicine Occupational Medicine; Referring Provider Internal Medicine Critical Care Medicine; Visit Provider Internal Medicine Critical Care Medicine
DX: R30.0 Dysuria (principal); J45.909 Unspecified asthma, uncomplicated
CPT/HCPCS: 36415; 81001; 82785; 85025; 86003; 86256; 86606; 87086; 87088

== ENCOUNTER → 2022-04-18 | Outpatient (CLI) | payer MEDICAID, SELFPAY ==
[2022-04-18 15:08] LABS: T4 Free Direct 0.83 ng/dL (0.76-1.46); Thyroid Stim Hormone (TSH) 3.73 uIU/mL (0.358-3.74)
[2022-04-20 12:26] LABS: Thyroid Peroxidase AB < 9 IU/mL (0-34)
[2022-04-23 15:39] LABS: Rheumatoid Factor < 10.0 IU/mL (<15)
== END | disposition home or self-care (01) ==
PROVIDERS: Nurse Practitioner Acute Care; PCP Preventive Medicine Occupational Medicine; Referring Provider Nurse Practitioner Women's Health; Visit Provider Nurse Practitioner Women's Health
DX: N89.8 Other specified noninflammatory disorders of vagina (principal); Z11.3 Encounter for screening for infections with a predominantly sexual mode of transmission
CPT/HCPCS: 36415; 84439; 84443; 86376; 86431; 87070; 87077; 87186; 87205

== ENCOUNTER → 2022-05-08 | Outpatient (CLI) | payer MEDICAID, SELFPAY ==
--- NOTE | 2022-05-08 16:34 | US_ITS ---
EXAM: US RETROPERITONEAL LIMITED, RENAL CLINICAL INDICATION: UTI TECHNIQUE: Limited grayscale and color Doppler sonographic evaluation of the retroperitoneum was performed. This report was created using [employer] report generation technology. COMPARISON: 04/16/2019. FINDINGS: RIGHT KIDNEY: Kidneys are normal in size. No perinephric collection is demonstrated. No renal stones, masses or hydronephrosis. LEFT KIDNEY: See above. BLADDER: Bladder has a volume 58 cc with no definite wall thickening. No gross evidence for any intraluminal masses. US/Kidney and Bladder IMPRESSION: Unremarkable kidneys. Incompletely distended bladder appearance. Electronically Signed: Anthony Moreland MD at 22:27 EST ,
== END | disposition home or self-care (01) ==
LOC: US 16:33
PROVIDERS: PCP Preventive Medicine Occupational Medicine; Referring Provider Urology; Visit Provider Urology
DX: N39.0 Urinary tract infection, site not specified (principal)
CPT/HCPCS: 76770

== ENCOUNTER → 2022-08-20 | Outpatient (CLI) | payer MEDICAID, SELFPAY ==
[2022-08-20 15:41] LABS: T4 Free Direct 0.93 ng/dL (0.76-1.46); Thyroid Stim Hormone (TSH) 3.95 uIU/mL (0.358-3.74)
== END | disposition home or self-care (01) ==
PROVIDERS: PCP Preventive Medicine Occupational Medicine; Referring Provider Internal Medicine Endocrinology, Diabetes & Metabolism; Visit Provider Internal Medicine Endocrinology, Diabetes & Metabolism
DX: R39.15 Urgency of urination (principal); R94.6 Abnormal results of thyroid function studies
CPT/HCPCS: 36415; 84439; 84443; 87086; 87088

== ENCOUNTER → 2022-08-28 | Outpatient (CLI) | payer MEDICAID, SELFPAY ==
--- NOTE | 2022-08-28 15:32 | BI_ITS ---
MAMMOGRAPHY - BILATERAL SCREENING REASON FOR EXAM: Female, 41 years old. Routine annual screening examination. PERTINENT HISTORY: Non-contributory. TECHNIQUE: Digital bilateral breast valerie (3D mammographic acquisition) in the CC and MLO projections. 2-D mediolateral oblique (MLO) and craniocaudad (CC) views of both breasts were obtained. CAD: Full Field Digital Mammography with Computer Added Detection was performed. COMPARISON: Comparison is made with prior study dated July 06, 2021 and 2019. FINDINGS: Breast Composition: The breasts are heterogeneously dense, which may obscure small masses. There are no dominant masses or suspicious calcifications. Stable small benign-appearing bilateral axillary lymph nodes. No other significant abnormalities are identified. There has been no significant change since the prior study. BI/SCRN MAMM (CAD)W/VALERIE BILAT IMPRESSION: Stable bilateral screening mammogram. Yearly follow-up mammogram recommended. (A) ASSESSMENT CATEGORY: BIRADS Category 2: Benign. A letter regarding these results will be sent to the patient by the facility within 30 days. Approximately 10% of breast cancers are not detected by mammography. A normal mammogram should not delay biopsy of a clinically suspicious abnormality. [id number] Electronically Signed: Luca Schaefer MD at 8:30 EDT ,
== END | disposition home or self-care (01) ==
LOC: OPBI 15:30
PROVIDERS: PCP Preventive Medicine Occupational Medicine; Referring Provider Nurse Practitioner Women's Health; Visit Provider Nurse Practitioner Women's Health
DX: Z12.31 Encounter for screening mammogram for malignant neoplasm of breast (principal)
CPT/HCPCS: 77063; 77067

== ENCOUNTER 2022-08-29 05:58 | Day surgery (SDC) | payer MEDICAID, SELFPAY ==
[2022-08-29 06:48] VITALS: BP 105/74; PULSE 73; RESP 18; TEMP 36.5; O2SAT 98; BMI 30.4
[2022-08-29] MEDS: Lactated Ringers 1,000 ML 15 ML IV (06:58)
[2022-08-29] MEDS: Cefazolin 2 GM in 0.9% Normal Saline 100 ML IV (07:42)
[2022-08-29] MEDS: Lidocaine Jelly 2% 20 ML Syringe (URO-JET) 1 APPLIC (07:54)
[2022-08-29 08:05] VITALS: BP 105/74; BP 107/65; PULSE 70; RESP 18; TEMP 36.4; O2SAT 97
--- NOTE | 2022-08-29 08:05 | DCINST_ITS ---
Discharge Instructions Diet Discharge Diet: No restrictions Activity Discharge Activity: Return to Normal Activity Dressing / Incision Call your doctor if your incision/area has: Continuous Slow Oozing and Sudden Increased Bleeding Call your doctor if you observe: Fever of 101 or Higher, Inability to urinate and Inability to have a bowel movement Follow Up Care Please Follow Up With: Rosemarie Chahal MD When: Call the office for appointment Test Results: Test results from this visit will be discussed in further detail at your follow- up appointment, if applicable. Discharge Plan Admission Attending Provider: Rosemarie Chahal Primary Care Provider: Surendra Chavarria Discharge Orders/Prescriptions Prescriptions: Continued citalopram 40 mg tablet 40 mg PO DAILY Qty: 90 3RF albuterol sulfate 90 mcg/actuation HFA aerosol inhaler 2 puff INHALATION Q4H PRN (Reason: shortness of breath or wheezing) Qty: 1 3RF Rx Instructions: administer with spacer budesonide-formoterol [Symbicort] 160-4.5 mcg/actuation HFA aerosol inhaler 2 puff inhalation BID Qty: 10.2 6RF fluticasone propionate 50 mcg/actuation spray,suspension 2 spray intranasal DAILY Qty: 16 3RF Spiriva Respimat 1.25 mcg/actuation mist 2 puff inhalation DAILY Qty: 4 6RF cetirizine 10 mg capsule 10 mg PO HS Qty: 90 3RF pantoprazole 40 mg Tablet,Delayed Release (Dr/Ec) 40 mg PO DAILY levothyroxine 75 mcg tablet 75 mcg PO DAILY Qty: 90 1RF Referrals / Follow Up: Surendra Chavarria DO [Primary Care Provider] - Disposition Disposition (needs filled in before D/C Order can be placed): Home, Self Care
--- NOTE | 2022-08-29 08:07 | PCM.OPRPT ---
Report of Operation Date of Procedure: 08/29/22 Pre-Operative Diagnosis: Urinary tract infections, urethral stricture, urinary incontinence Post-Operative Diagnosis: Same Surgery/Procedure Performed:: Urethral dilation, cystourethroscopy Surgeon: Rosemarie Chahal Type of Anesthesia: MAC Description of Procedure: The patient is a 41-year-old female who is struggling with recurrent urinary tract infections who presented to the office for evaluation and management. The urethral meatus was found to be very small in stature and the decision was made to take her to the operating room for urethral dilation and cystoscopy. Informed consent was obtained. The patient was taken to the operating room and placed on the operating room table. Anesthesia monitored the head, neck, airway, IV access and vital signs throughout the case. Once anesthesia was appropriately administered, the patient was placed into dorsolithotomy position and was prepped and draped in usual sterile fashion. The urethra was dilated starting with 12 [place] and ending with 28 [place]. There was cracking and bleeding of the urethra. At this time the cystoscope was inserted through the urethra under direct visualization into the urinary bladder. The bladder mucosa was visualized in its entirety. There were no findings of erythema, mass, foreign body, ulceration. At this time the patient's bladder was emptied and the case was ended. She was awakened and taken to the recovery room in good condition. There were no complications during this procedure. Grafts/Implants Used: None Admit VTE Documentation VTE Present on Admission: Yes VTE Mechan Device Prophylaxis: SCD's VTE Pharm Prophylaxis ordered?: No Reason prophylaxis not ordered:: Treatment Not Indicated
[2022-08-29 08:10] VITALS: BP 105/72; BP 105/74; PULSE 80; RESP 16; O2SAT 99
[2022-08-29 08:15] VITALS: BP 105/74; BP 107/76; PULSE 72; RESP 16; O2SAT 97
[2022-08-29 08:20] VITALS: BP 101/77; BP 105/74; PULSE 75; RESP 16; TEMP 36.2; O2SAT 98
[2022-08-29 08:56] VITALS: BP 105/74; BP 98/62; PULSE 73; RESP 18; TEMP 36.6; O2SAT 100
== END 2022-08-29 09:11 | disposition home or self-care (01) ==
LOC: SDC 06:00 → AC 06:00
PROVIDERS: PCP Preventive Medicine Occupational Medicine; Referring Provider Urology; Visit Provider Urology
PROC: (CPT 52281; principal; 2022-08-29 07:20)
DX: N35.92 Unspecified urethral stricture, female (principal); R32 Unspecified urinary incontinence; F32.9 Major depressive disorder, single episode, unspecified; J45.909 Unspecified asthma, uncomplicated; K21.9 Gastro-esophageal reflux disease without esophagitis; Z87.442 Personal history of urinary calculi; Z87.891 Personal history of nicotine dependence
CPT/HCPCS: 52281; 00910; J7120; J2405

== ENCOUNTER → 2022-10-02 | Outpatient (CLI) | payer MEDICAID, SELFPAY ==
[2022-10-02 14:05] LABS: Rheumatoid Factor < 10.0 IU/mL (<15); T4 Free Direct 1.04 ng/dL (0.76-1.46); Thyroid Stim Hormone (TSH) 1.52 uIU/mL (0.358-3.74)
[2022-10-04 14:10] LABS: CCP IgG Antibodies 3 units (0-19); Cytoplasmic Ab (C-ANCA) <1:20 titer (Neg:<1:20); Perinuclear Ab (P-ANCA) <1:20 titer (Neg:<1:20)
[2022-10-04 17:08] LABS: Anti-Centromere B Ab <0.2 AI (0.0-0.9); Anti-Chromatin <0.2 AI (0.0-0.9); Anti-Jo <0.2 AI (0.0-0.9); Anti-Scleroderma-70 AB <0.2 AI (0.0-0.9); Anti-dsDNA Ab <1 IU/mL (0-9); RNP Ab 0.7 AI (0.0-0.9); SJOGREN'S Anti-SS-A test < 0.2 AI (0.0-0.9); SJOGREN'S Anti-SS-B test < 0.2 AI (0.0-0.9); Smith Ab <0.2 AI (0.0-0.9)
== END | disposition home or self-care (01) ==
LOC: PAVLAB 13:22
PROVIDERS: PCP Preventive Medicine Occupational Medicine; Referring Provider Nurse Practitioner Acute Care; Visit Provider Nurse Practitioner Acute Care
DX: R76.8 Other specified abnormal immunological findings in serum (principal); R94.6 Abnormal results of thyroid function studies
CPT/HCPCS: 36415; 84439; 84443; 86200; 86225; 86235; 86256; 86431

== ENCOUNTER 2022-10-07 23:11 | Emergency (ER) | payer MEDICAID, SELFPAY ==
[2022-10-07 23:13] VITALS: BP 117/75; PULSE 95; RESP 18; TEMP 36.6; O2SAT 98; BMI 27.7
--- NOTE | 2022-10-07 23:31 | EDS_ITS ---
HPI HPI - URI History of Present Illness Chief Complaint: Cough Detail of Chief Complaint: Nonproductive cough, and rhinorrhea and hoarse voice Informant: patient Onset/Context/Timing Onset: Yesterday Context: Sudden Onset Timing: Continuous Quality: Upper respiratory tract infectious symptoms Location: Upper respiratory Current Severity: Mild Maximum Severity: Moderate Worsened by: Not Worsened By Swallowing, Eating Solids or Drinking Liquids Relieved by: Not Relieved By Tylenol or NSAIDs Associated Symptoms Associated Symptoms: Positive for Nasal Congestion, Myalgias, Shortness of Breath and Nonproductive cough; Negative for Headache, Sinus Pressure, Nausea, Vomiting, Diarrhea, Chest Pain or Hemoptysis Narrative Narrative: Patient is a 41-year-old woman who has history of asthma and sees Dr. Nix for her asthma. She is a non-smoker. She states she does not have an air conditioner in her home. She states her symptoms started last evening. She denies fever. She denies sweats. She does endorse rhinorrhea, congestion. She states her throat is sore after she coughs otherwise she does not have a sore throat. Her cough is nonproductive. She denies GI symptoms. She does report myalgias arthralgias. She denies rash. She has not been outside. She states she has problems when the air quality is poor, which it has been recently. Prior similar symptoms: Yes Recent Illness/Hospitalization: No ROS ROS ED Constitutional Constitutional ED: Denies chills, fever(s), subjective, sweats or weight loss Eyes Eyes: Denies blurry vision, change in vision or diplopia ENT ENT ED: Denies ear pain, rhinorrhea or sore throat Cardiovascular Cardiovascular: Denies chest pain, orthopnea, palpitations, paroxysmal nocturnal dyspnea or racing heartbeat Respiratory/Chest Respiratory/Chest: Reports cough and dyspnea; Denies dyspnea on exertion, orthopnea or paroxysmal nocturnal dyspnea Gastrointestinal Gastrointestinal: Denies abdominal pain, nausea or vomiting Genitourinary Genitourinary ED: Denies dysuria, hematuria or urinary frequency Musculoskeletal Musculoskeletal: Reports arthralgias and myalgias; Denies back pain or neck pain Integumentary Denies rash Neurologic Neurologic: Denies headache(s), paresthesias or weakness Psychiatric Psychiatric: Denies anxiety or depression Endocrine Endocrinology: Denies cold intolerance or heat intolerance Hematologic/Lymphatic Hematologic/Lymphatic: Denies easy bleeding or easy bruising Allergic/Immunologic Allergic/Immunologic ED: Denies mouth swelling, tongue swelling or urticaria PFSH PFSH Medical History Abnormal results of thyroid function studies Anemia Anxiety Anxiety and depression Asthma Bladder disease Former smoker Gastric reflux GERD (gastroesophageal reflux disease) History of echocardiogram History of hiatal hernia History of IBS History of stress test MRSA infection depression Prediabetes Thyroid disease Thyroid nodule Wears contact lenses Home Medications citalopram 40 mg tablet 40 mg PO DAILY depression #90 tabs 08/15/21 [Rx Last Taken Unknown] levothyroxine 75 mcg tablet 75 mcg PO DAILY #90 tabs 08/21/22 [Rx Last Taken Unknown] pantoprazole 40 mg tablet,delayed release 40 mg PO DAILY 08/26/22 [History Last Taken Unknown] albuterol sulfate 90 mcg/actuation aerosol inhaler 2 puff inhalation Q4H PRN shortness of breath or wheezing #1 ea 09/30/22 [Rx Last Taken Unknown] budesonide-formoterol HFA 160 mcg-4.5 mcg/actuation aerosol inhaler (Symbicort) 2 puff inhalation BID #10.2 grams 09/30/22 [Rx Last Taken Unknown] cetirizine 10 mg capsule 10 mg PO HS #90 caps 09/30/22 [Rx Last Taken Unknown] fluticasone propionate 50 mcg/actuation nasal spray,suspension 2 spray intranasal DAILY #16 grams 09/30/22 [Rx Last Taken Unknown] tiotropium bromide 1.25 mcg/actuation mist for inhalation (Spiriva Respimat) 2 puff inhalation DAILY #4 grams 09/30/22 [Rx Last Taken Unknown] Allergy/AdvReac Type Severity Reaction Status Date / Time ampicillin Allergy Itching Verified 10/07/22 23:11 Fish Containing Products Allergy Shortness Verified 10/07/22 23:11 of breath Penicillins [PCN] Allergy Shortness Verified 10/07/22 23:11 of breath clindamycin AdvReac Pain in Verified 10/07/22 23:11 joints Family History Mother ADALBERTO III (cervical intraepithelial neoplasia grade III) with severe dysplasia Diabetes Thyroid disorder Grandmother Diabetes Thyroid disorder Other CVA (cerebral vascular accident) Kidney disease Surgical History History of tubal ligation Hx of appendectomy Hx of cholecystectomy Social History adopted: No household members: family housing: house number of children: 5 current occupational status: employed current occupation: [employer] pets and animals: No history of recent travel: No Smoking Status: Former smoker second hand exposure: No alcohol intake: never substance use type: does not use caffeine: No what type of physical activity do you participate in: walking, bicycling and weight training frequency: 3-4 times per week seatbelt use: always do you feel safe at home: Yes additional social history: Boyfriend- Chaz EXAM Physical Exam Const Vital Signs: 10/07/22 23:13 10/07/22 23:17 Temperature 97.8 F Temperature Source Temporal Pulse Rate 95 Respiratory Rate 18 Respiratory Effort Normal Respiratory Depth Normal Respiratory Pattern Normal Blood Pressure 117/75 Blood Pressure Mean 89 Pulse Ox 98 Oxygen Delivery Method Room Air Room Air Positive well nourished General Appearance ED: NAD; Negative for cyanotic, diaphoretic or pallor HEENT Denies moist mucous membranes normocephalic Face and Sinus: Negative for sinus tenderness Throat: posterior oropharynx normal; Negative for tonsils abnormal Eyes PERRL and EOMs intact bilaterally General Eye ED: Negative for pale conjunctiva or scleral icterus Neck no lymphadenopathy, supple, no meningeal signs and no JVD Resp normal respiratory effort and clear to auscultation bilaterally Cardio S1 normal heart sound, S2 normal heart sound and no murmurs Back/Spine no CVA tenderness Extremity normal to inspection and full ROM General Extremety ED: Negative for cyanosis General Extremity: Negative for cyanosis Neuro oriented x3, CN's II-XII intact bilaterally and no sensory deficits noted Sensorium / Orientation: alert Psych mental status grossly normal Skin General Skin Exam: Negative for jaundice or pallor Lesions: no lesions Rashes: no rashes MDM MDM MDM Narrative Medical decision making narrative: Patient with upper respiratory symptoms. Patient vitals are normal. Pulse ox is 98%. Since symptoms started yesterday and there is no wheezing treatment is symptomatic. She was told she may be sick for another 7 to 10 days. She also was instructed to contact Dr. Nix's office and discuss possibility of writing a prescription for a air conditioner unit for her bedroom. Discharge Plan Triage Chief Complaint: Cough ED Provider: Jamaal De La Rosa Dx/Rx/DC Orders Clinical Impression: Upper respiratory infection with cough and congestion, History of asthma Instructions: ED URI, Viral, No Abx (Adult) Prescriptions: No Action citalopram 40 mg tablet 40 mg PO DAILY Qty: 90 3RF albuterol sulfate 90 mcg/actuation HFA aerosol inhaler 2 puff INHALATION Q4H PRN (Reason: shortness of breath or wheezing) Qty: 1 3RF Rx Instructions: administer with spacer budesonide-formoterol [Symbicort] 160-4.5 mcg/actuation HFA aerosol inhaler 2 puff inhalation BID Qty: 10.2 6RF cetirizine 10 mg capsule 10 mg PO HS Qty: 90 3RF fluticasone propionate 50 mcg/actuation spray,suspension 2 spray intranasal DAILY Qty: 16 3RF Spiriva Respimat 1.25 mcg/actuation mist 2 puff inhalation DAILY Qty: 4 6RF pantoprazole 40 mg Tablet,Delayed Release (Dr/Ec) 40 mg PO DAILY levothyroxine 75 mcg tablet 75 mcg PO DAILY Qty: 90 1RF Hold Instructions: Order Changed Primary Care Provider: Surendra Chavarria Referrals: Surendra Chavarria DO [Primary Care Provider] - 1 Week if not improving Activity Restrictions/Additional Instructions: Contact Dr. Nix's office regarding possibility of him writing a prescription for air conditioner unit since you have history of asthma and air quality has been poor with high humidity. Disposition Disposition: Home, Self Care
== END 2022-10-07 23:55 | disposition home or self-care (01) ==
LOC: ED 23:40
PROVIDERS: Emergency Provider Emergency Medicine; PCP Preventive Medicine Occupational Medicine; Visit Provider Emergency Medicine
DX: J06.9 Acute upper respiratory infection, unspecified (principal); Z87.891 Personal history of nicotine dependence; J45.909 Unspecified asthma, uncomplicated; K21.9 Gastro-esophageal reflux disease without esophagitis; Z79.899 Other long term (current) drug therapy; Z79.51 Long term (current) use of inhaled steroids; Z90.49 Acquired absence of other specified parts of digestive tract; R05.9 Cough, unspecified; R09.81 Nasal congestion
CPT/HCPCS: 99282

== ENCOUNTER → 2023-01-11 | Outpatient (CLI) | payer MEDICAID, SELFPAY ==
[2023-01-11 08:42] LABS: Absolute Lymphocyte Count 2.61 X10^3/uL (0.83-4.51); Absolute Neutrophil Count 5.8 X10^3/uL (2.0-7.7); Basophil# 0.06 X10^3/uL; Basophil% 0.6 % (0-1); Eosinophil# 0.24 X10^3/uL; Eosinophils% 2.5 % (0-5); Hematocrit 40.5 % (37-47); Hemoglobin 13.4 g/dL (12.0-15.0); Lymphocyte # 2.61 X10^3/ul (0.83-4.51); Lymphocyte % 27.6 % (19-41); Mean Corp Hgb Conc 33.1 g/dL (32-36); Mean Corpuscular Hgb 29.9 pg (27.0-32.0); Mean Corpuscular Volume 90.4 fL (81-99); Mean Platelet Vol. 8.9 fl (6.2-12.0); Monocyte# 0.69 X10^3/uL; Monocyte% 7.3 % (0-10); NRBC Flagged by Analyzer 0 % (0-5); Neutrophil # 5.82 X10^3/uL (2.7-7.7); Neutrophil % 61.6 % (47-70); Platelet Count 372 K/mm3 (150-450); RBC Distribution Width CV 13.1 % (11.6-14.6); RBC Distribution Width SD 42.7 fl (35.1-43.9); Red Blood Count 4.48 M/mm3 (4.2-5.4); White Blood Count 9.5 K/mm3 (4.4-11.0)
[2023-01-11 09:05] LABS: ALB/GLOB Ratio 1.1 RATIO (0.9-2.4); AST(SGOT) 14 U/L (15-37); Alanine Aminotransfer ALT/SGPT 22 U/L (13-56); Albumin, Serum 3.8 g/dL (3.2-5.0); Alkaline Phosphatase 88 U/L (45-117); Anion Gap 8 (5-15); BUN 18 mg/dL (7-18); BUN/Creat Ratio 23.8 RATIO (10-20); Calcium,Total 8.8 mg/dL (8.5-10.1); Chloride 104 mmol/L (98-107); Cholesterol 147 mg/dL (200); Creatinine, Serum 0.76 mg/dL (0.55-1.02); EST Glomerular Filtration Rate 90 mL/min (>60); Est Glom Filt Rate - Afr Amer 109 mL/min (>60); Globulin 3.6 g/dL (2.2-4.2); Glucose 80 mg/dL (74-106); High Density Lipoprotein 51 mg/dL; Potassium 3.7 mmol/L (3.5-5.1); Protein, Total 7.4 g/dL (6.4-8.2); Sodium Level 139 mmol/L (136-145); Triglycerides 30 mg/dL; Very Low Density Lipoprotein 6 mg/dL (5-40)
[2023-01-13 08:12] LABS: Vitamin D,25 Hydroxy 62.2 ng/mL
== END | disposition home or self-care (01) ==
LOC: LAB 07:47
PROVIDERS: PCP Preventive Medicine Occupational Medicine; Visit Provider Obstetrics & Gynecology
DX: Z13.220 Encounter for screening for lipoid disorders (principal); R73.03 Prediabetes; Z13.21 Encounter for screening for nutritional disorder
CPT/HCPCS: 36415; 80053; 80061; 82306; 85025

== ENCOUNTER → 2023-04-23 | Outpatient (CLI) | payer MEDICAID, OTHER, SELFPAY ==
[2023-04-23 15:41] LABS: Rheumatoid Factor < 10.0 IU/mL (<15)
[2023-04-25 11:09] LABS: ANTINUCLEAR ANTIBODIES DIRECT Negative (Negative)
[2023-04-28 14:08] LABS: CCP IgG Antibodies 7 units (0-19); Cytoplasmic Ab (C-ANCA) <1:20 titer (Neg:<1:20); Perinuclear Ab (P-ANCA) <1:20 titer (Neg:<1:20)
== END | disposition home or self-care (01) ==
PROVIDERS: PCP Preventive Medicine Occupational Medicine; Referring Provider Nurse Practitioner Acute Care; Visit Provider Nurse Practitioner Acute Care
DX: R76.8 Other specified abnormal immunological findings in serum (principal)
CPT/HCPCS: 36415; 86038; 86200; 86225; 86235; 86256; 86431

== ENCOUNTER → 2023-07-19 | Outpatient (CLI) | payer OTHER, MEDICAID, SELFPAY | END | disposition home or self-care (01) | LOC: LABSPEC 07:14 | PROVIDERS: PCP Preventive Medicine Occupational Medicine; Referring Provider Otolaryngology; Visit Provider Otolaryngology | DX: R05.9 Cough, unspecified (principal) | CPT/HCPCS: 87070; 87077; 87186; 87205 ==

== ENCOUNTER → 2023-08-20 | Outpatient (CLI) | payer OTHER, MEDICAID, SELFPAY ==
[2023-08-20 14:24] LABS: T4 Free Direct 0.92 ng/dL (0.76-1.46); Thyroid Stim Hormone (TSH) 2.88 uIU/mL (0.358-3.74)
== END | disposition home or self-care (01) ==
LOC: PAVLAB 13:47
PROVIDERS: PCP Preventive Medicine Occupational Medicine; Referring Provider Obstetrics & Gynecology; Visit Provider Obstetrics & Gynecology
DX: L65.9 Nonscarring hair loss, unspecified (principal)
CPT/HCPCS: 36415; 84439; 84443

== ENCOUNTER 2023-09-16 20:50 | Emergency (ER) | payer OTHER, MEDICAID, SELFPAY ==
[2023-09-16 20:51] VITALS: BP 128/92; PULSE 87; RESP 16; TEMP 36.3; O2SAT 98; BMI 24.5
--- NOTE | 2023-09-16 21:46 | EDS_ITS ---
HPI History of Present Illness Chief Complaint: Dental Detail of Chief Complaint: Dental pain upper right teeth started last evening Informant: patient Onset/Context/Timing Onset: Yesterday Context: Sudden Onset Timing: Continuous Quality: Pain Location: Upper right bicuspid and molars Current Severity: Mild Maximum Severity: Severe Worsened by: Hot and cold liquids Relieved by: - (Nothing) Associated Symptoms Assocated Symptom - Dental: cold sensitivity and hot sensitivity; Negative for fever, jaw swelling or face swelling Narrative Narrative: Patient is a 42-year-old who presents with acute dental pain. She attempted to get a hold of her dentist was unsuccessful. She has been applied lidocaine solution on which gives her temporary/transient relief. She denies fever, chills night sweats. Denies history medic fever, heart murmur, mitral prolapse or SBE. Patient denies trouble swallowing. She denies change in her voice. She denies facial swelling. She denies rash. She denies neck pain. Prior similar symptoms: Yes Recent Illness/Hospitalization: No PFSH PFSH Medical History Wears contact lenses MRSA infection Thyroid disease Bladder disease Anemia History of hiatal hernia History of IBS Gastric reflux Former smoker History of stress test History of echocardiogram Thyroid nodule Abnormal results of thyroid function studies Prediabetes Anxiety depression Asthma GERD (gastroesophageal reflux disease) Anxiety and depression Home Medications ?Medication ?Instructions ?Recorded ?Last Taken ?Type citalopram 40 mg tablet 40 mg PO DAILY depression #90 tabs 08/15/21 Unknown Rx albuterol sulfate 90 mcg/actuation 2 puff inhalation Q4H PRN 04/23/23 Unknown Rx aerosol inhaler shortness of breath or wheezing #1 ea budesonide-formoterol HFA 160 2 puff inhalation BID #10.2 grams 04/23/23 Unknown Rx mcg-4.5 mcg/actuation aerosol inhaler (Symbicort) cetirizine 10 mg capsule 10 mg PO HS #90 caps 04/23/23 Unknown Rx epinephrine 0.3 mg/0.3 mL 0.3 ml IM PRN as needed for 04/23/23 Unknown History injection, auto-injector allergic reaction fluticasone propionate 50 2 spray intranasal DAILY #16 grams 04/23/23 Unknown Rx mcg/actuation nasal spray,suspension spacer #1 ea 04/23/23 Unknown Rx tiotropium bromide 1.25 2 puff inhalation DAILY #4 grams 04/23/23 Unknown Rx mcg/actuation mist for inhalation (Spiriva Respimat) phentermine 37.5 mg tablet 37.5 mg PO DAILY #30 tabs 06/17/23 Unknown Rx (Adipex-P) topiramate 50 mg tablet 50 mg PO BID #60 tabs 06/17/23 Unknown Rx azithromycin 250 mg tablet 250 mg PO DAILY #4 TABLETS 09/16/23 Unknown Rx hydrocodone-acetaminophen 5-325mg 1 tab PO Q6H PRN PRN Pain 3 days 09/16/23 Unknown Rx 5mg-325mg #10 TABLETS naproxen 500 mg tablet 500 mg PO BID #14 tabs 09/16/23 Unknown Rx Allergy/AdvReac Type Severity Reaction Status Date / Time ampicillin Allergy Itching Verified 09/16/23 21:09 Fish Containing Products Allergy Shortness Verified 09/16/23 21:09 of breath Penicillins (PCN) Allergy Shortness Verified 09/16/23 21:09 of breath clindamycin AdvReac Pain in Verified 09/16/23 21:09 joints Family History Mother ADALBERTO III (cervical intraepithelial neoplasia grade III) with severe dysplasia Diabetes Thyroid disorder Grandmother Diabetes Thyroid disorder Other CVA (cerebral vascular accident) Kidney disease Surgical History History of tubal ligation Hx of cholecystectomy Hx of appendectomy Social History adopted: No household members: family housing: house number of children: 5 current occupational status: employed current occupation: [employer] pets and animals: No history of recent travel: No Smoking Status: Former smoker second hand exposure: No alcohol intake: never substance use type: does not use caffeine: No what type of physical activity do you participate in: walking, bicycling and weight training frequency: 3-4 times per week seatbelt use: always do you feel safe at home: Yes additional social history: Boyfriend- Chaz JAE ROS ED Constitutional Constitutional ED: Denies chills, fever(s), subjective, sweats or weight loss Eyes Eyes: Denies blurry vision or change in vision ENT ENT ED: Denies ear pain, rhinorrhea or sore throat Cardiovascular Cardiovascular: Denies chest pain, palpitations or racing heartbeat Musculoskeletal Musculoskeletal: Denies back pain, myalgias or neck pain Neurologic Neurologic: Denies headache(s), paresthesias or weakness Allergic/Immunologic Allergic/Immunologic ED: Denies mouth swelling, tongue swelling or urticaria EXAM Physical Exam Const Vital Signs: 09/16/23 20:51 Temperature 97.4 F L Temperature Source Temporal Pulse Rate 87 Respiratory Rate 16 Blood Pressure 128/92 H Blood Pressure Mean 104 Pulse Ox 98 Positive well nourished and well developed General Appearance ED: well developed and NAD HEENT trauma; Negative for tenderness Face and Sinus: Negative for sinuses nontender Mouth ED: Yes oral and palatal mucosa normal, Yes lips normal, Yes tongue normal, Yes salivary gland normal, No mouth trauma and Yes oral and palatal mucosa abnormal Mouth: oral and palatal mucosa normal, lips normal, tongue normal, salivary gland normal, No mouth trauma and oral and palatal mucosa abnormal Teeth and Gingiva: abnormal tooth and associated gingiva, caries, gingiva abnormal Positive for diffuse gingival erythema and poor dentition Throat: posterior oropharynx normal Eyes PERRL and EOMs intact bilaterally General Eye ED: Negative for pale conjunctiva Neck no lymphadenopathy, supple and no JVD General: normal visual inspection; Negative for anterior neck swelling, tenderness or submandibular swelling Resp normal respiratory effort, no retractions and clear to auscultation bilaterally Cardio regular rate, regular rhythm, S1 normal heart sound, S2 normal heart sound and no murmurs Extremity normal to inspection and no joint enlargement Neuro oriented x3 and CN's II-XII intact bilaterally Sensorium / Orientation: alert Skin no rashes or lesions noted MDM MDM MDM Narrative Medical decision making narrative: Patient has numerous dental caries and probable apical abscess. There is no fluctuance. There is no trismus. There is no evidence of facial cellulitis. W ith patient having pain to both cold and hot liquids she has both reversible and irreversible symptomatic pulpitis. She was informed that the only 1 who can alleviate her pain is a dentist. She was treated with azithromycin since she has allergy to penicillin clindamycin and ampicillin. She also received NSAID since she has no contraindication and opiate analgesia. She was discharged to home. She was referred back to her dentist. Discharge Plan Triage Chief Complaint: Dental ED Provider: Jamaal De La Rosa Dx/Rx/DC Orders Clinical Impression: Abscess, dental, Dental caries extending into dentine, Dental caries extending into pulp, Symptomatic irreversible pulpitis, Symptomatic reversible pulpitis Instructions: ED Dental Abscess Prescriptions: New azithromycin 250 mg tablet 250 mg PO DAILY Qty: 4 0RF hydrocodone-acetaminophen 5-325 mg tablet 1 tab PO Q6H PRN PRN (Reason: Pain) 3 Days Qty: 10 0RF naproxen 500 mg tablet 500 mg PO BID Qty: 14 0RF No Action citalopram 40 mg tablet 40 mg PO DAILY Qty: 90 3RF epinephrine 0.3 mg/0.3 mL auto-injector 0.3 ml IM PRN (Reason: as needed for allergic reaction) Patient Comments: Inject one syringe in the outer thigh as needed for allergic reaction albuterol sulfate 90 mcg/actuation HFA aerosol inhaler 2 puff INHALATION Q4H PRN (Reason: shortness of breath or wheezing) Qty: 1 3RF Rx Instructions: administer with spacer budesonide-formoterol [Symbicort] 160-4.5 mcg/actuation HFA aerosol inhaler 2 puff inhalation BID Qty: 10.2 6RF cetirizine 10 mg capsule 10 mg PO HS Qty: 90 3RF fluticasone propionate 50 mcg/actuation spray,suspension 2 spray intranasal DAILY Qty: 16 3RF Spiriva Respimat 1.25 mcg/actuation mist 2 puff inhalation DAILY Qty: 4 6RF (DME) spacer See Rx Instructions .ROUTE .MEDSUPPLY Qty: 1 0RF Rx Instructions: As directed phentermine [Adipex-P] 37.5 mg tablet 37.5 mg PO DAILY Qty: 30 1RF Rx Instructions: must administer 30 minutes before or 1-2 hours after breakfast topiramate 50 mg tablet 50 mg PO BID Qty: 60 12RF Rx Instructions: take before breakfast and before dinner, take 1/2 tab BID x two weeks then full tab BID Primary Care Provider: Surendra Chavarria Referrals: Surendra Chavarria DO [Primary Care Provider] - Dentist,Your [STAFF PHYSICIAN] - 3-5 Days Print Language: Chilean
[2023-09-16] MEDS: Ibuprofen 400 MG Tablet 800 MG PO (21:54)
[2023-09-16] MEDS: HYDROcodone Bitartrate/Apap 5/325 Tablet PO (21:54)
[2023-09-16] MEDS: Azithromycin 250 MG Tablet 500 MG PO (21:54)
[2023-09-16 22:02] VITALS: BP 118/64; PULSE 80; RESP 14; TEMP 36.3; O2SAT 98
== END 2023-09-16 22:04 | disposition home or self-care (01) ==
PROVIDERS: Emergency Provider Emergency Medicine; PCP Preventive Medicine Occupational Medicine; Visit Provider Emergency Medicine
DX: K04.7 Periapical abscess without sinus (principal); K04.01 Reversible pulpitis; K04.02 Irreversible pulpitis; K02.9 Dental caries, unspecified; Z87.891 Personal history of nicotine dependence; Z98.51 Tubal ligation status; Z90.49 Acquired absence of other specified parts of digestive tract; J45.909 Unspecified asthma, uncomplicated; K21.9 Gastro-esophageal reflux disease without esophagitis; Z86.14 Personal history of Methicillin resistant Staphylococcus aureus infection
CPT/HCPCS: 99283

== ENCOUNTER → 2023-09-19 | Outpatient (CLI) | payer OTHER, MEDICAID, SELFPAY ==
[2023-09-19 11:28] LABS: Absolute Lymphocyte Count 2.89 X10^3/uL (0.83-4.51); Absolute Neutrophil Count 5.1 X10^3/uL (2.0-7.7); Basophil# 0.09 X10^3/uL; Eosinophil# 0.51 X10^3/uL; Eosinophils% 5.5 % (0-5); Hemoglobin 12.3 g/dL (12.0-15.0); Lymphocyte # 2.89 X10^3/ul (0.83-4.51); Lymphocyte % 31.4 % (19-41); Mean Corp Hgb Conc 32.4 g/dL (32-36); Mean Corpuscular Volume 89.6 fL (81-99); Mean Platelet Vol. 8.7 fl (6.2-12.0); Monocyte# 0.59 X10^3/uL; Monocyte% 6.4 % (0-10); NRBC Flagged by Analyzer 0 % (0-5); Neutrophil # 5.12 X10^3/uL (2.7-7.7); Neutrophil % 55.6 % (47-70); Platelet Count 336 K/mm3 (150-450); RBC Distribution Width SD 42.5 fl (35.1-43.9); Red Blood Count 4.24 M/mm3 (4.2-5.4); White Blood Count 9.2 K/mm3 (4.4-11.0)
[2023-09-19 12:40] LABS: ALB/GLOB Ratio 1.3 RATIO (0.9-2.4); AST(SGOT) 21 U/L (15-37); Alanine Aminotransfer ALT/SGPT 39 U/L (13-56); Albumin, Serum 3.8 g/dL (3.2-5.0); Alkaline Phosphatase 75 U/L (45-117); Anion Gap 7 (5-15); BUN 16 mg/dL (7-18); BUN/Creat Ratio 11.7 RATIO (10-20); Calcium,Total 8.5 mg/dL (8.5-10.1); Chloride 112 mmol/L (98-107); Creatinine, Serum 1.37 mg/dL (0.55-1.02); EST Glomerular Filtration Rate 45 mL/min (>60); Est Glom Filt Rate - Afr Amer 55 mL/min (>60); Estradiol 57.5 pg/mL; Follicle Stimulating Hormone 6.8 mIU/mL; Glucose 91 mg/dL (74-106); Potassium 3.6 mmol/L (3.5-5.1); Protein, Total 6.8 g/dL (6.4-8.2); Sodium Level 142 mmol/L (136-145)
[2023-09-25 00:07] LABS: Testosterone Free 0.4 pg/mL (0.0-4.2)
[2023-09-25 14:08] LABS: 17-Hydroxyprogesterone 29 ng/dL (.)
== END | disposition home or self-care (01) ==
LOC: LAB 11:13
PROVIDERS: PCP Preventive Medicine Occupational Medicine; Referring Provider Nurse Practitioner Family; Visit Provider Nurse Practitioner Family
DX: N95.1 Menopausal and female climacteric states (principal)
CPT/HCPCS: 36415; 80053; 82627; 82670; 83001; 83498; 84402; 85025; 82626

== ENCOUNTER → 2023-10-07 | Outpatient (CLI) | payer OTHER, MEDICAID, SELFPAY ==
--- NOTE | 2023-10-07 15:30 | BI_ITS ---
MAMMOGRAPHY - BILATERAL SCREENING REASON FOR EXAM: Female, 42 years old. Routine annual screening examination. PERTINENT HISTORY: Non-contributory. TECHNIQUE: Digital bilateral breast valerie (3D mammographic acquisition) in the CC and MLO projections. 2-D mediolateral oblique (MLO) and craniocaudad (CC) views of both breasts were obtained. CAD: Full Field Digital Mammography with Computer Added Detection was performed. COMPARISON: Comparison is made with prior study dated August 28, 2022 and July 06, 2021. FINDINGS: Breast Composition: The breasts are extremely dense, which lowers the sensitivity of mammography. There are no dominant masses or suspicious calcifications. No other significant abnormalities are identified. There has been no significant change since the prior study. BI/SCRN MAMM (CAD)W/VALERIE BILAT IMPRESSION: Stable bilateral screening mammogram. Yearly follow-up mammogram recommended. (A) ASSESSMENT CATEGORY: BIRADS Category 1: Negative. A letter regarding these results will be sent to the patient by the facility within 30 days. Approximately 10% of breast cancers are not detected by mammography. A normal mammogram should not delay biopsy of a clinically suspicious abnormality. [id number] Electronically Signed: Luca Schaefer MD at 7:32 EDT ,
== END | disposition home or self-care (01) ==
LOC: OPBI 15:29
PROVIDERS: PCP Preventive Medicine Occupational Medicine; Referring Provider Nurse Practitioner Women's Health; Visit Provider Nurse Practitioner Women's Health
DX: Z12.31 Encounter for screening mammogram for malignant neoplasm of breast (principal)
CPT/HCPCS: 77063; 77067

== ENCOUNTER 2023-10-11 20:31 | Emergency (ER) | payer OTHER, MEDICAID, SELFPAY ==
[2023-10-11 20:31] VITALS: BP 125/89; PULSE 84; RESP 16; TEMP 36.6; O2SAT 100; BMI 24.4
--- NOTE | 2023-10-11 20:51 | EDS_ITS ---
<Statement entered by Jaclyn Guerrero MD - 10/11/23 22:06> I have personally performed a face to face assessment of the patient and have reviewed the JESUS Note. Patient presents secondary to right-sided neck pain. She reports right-sided neck pain for the past 2 weeks. She initially thought she just slept wrong. Pain does not seem to be releasing. She points to a vertical line on right anterior lateral neck that terminates on the collarbone. No overlying skin changes. No pain or paresthesias to the extremities. No extremity swelling. Patient sitting upright in bedside chair no acute distress. Head and neck examination was no obvious abnormalities. Mild right-sided muscular neck tenderness. No carotid bruits appreciated. Neuro exam is normal. We discussed with the patient that her symptoms are consistent with musculoskeletal pain. I do not feel she needs further imaging. Lidoderm patch is placed tonight along with a dose of Naprosyn. Patient be given a prescription for naproxen. Return instructions provided. HPI History of Present Illness Chief Complaint: Other, Pain/Inj Narrative Narrative: 42-year-old female states over the last 2 weeks she has had an aching pain in the right front side of her neck. She denies injury. She lifts her [id number] grandson but does not necessarily notice pain with this. She has no sore throat or upper respiratory symptoms. There is no chest pain or shortness of breath. [facility] Medical History Wears contact lenses MRSA infection Thyroid disease Bladder disease Anemia History of hiatal hernia History of IBS Gastric reflux Former smoker History of stress test History of echocardiogram Thyroid nodule Abnormal results of thyroid function studies Prediabetes Anxiety depression Asthma GERD (gastroesophageal reflux disease) Anxiety and depression Home Medications ?Medication ?Instructions ?Recorded ?Last Taken ?Type citalopram 40 mg tablet 40 mg PO DAILY depression #90 tabs 08/15/21 Unknown Rx albuterol sulfate 90 mcg/actuation 2 puff inhalation Q4H PRN 04/23/23 Unknown Rx aerosol inhaler shortness of breath or wheezing #1 ea budesonide-formoterol HFA 160 2 puff inhalation BID #10.2 grams 04/23/23 Unknown Rx mcg-4.5 mcg/actuation aerosol inhaler (Symbicort) cetirizine 10 mg capsule 10 mg PO HS #90 caps 04/23/23 Unknown Rx epinephrine 0.3 mg/0.3 mL 0.3 ml IM PRN as needed for 04/23/23 Unknown History injection, auto-injector allergic reaction fluticasone propionate 50 2 spray intranasal DAILY #16 grams 04/23/23 Unknown Rx mcg/actuation nasal spray,suspension spacer #1 ea 04/23/23 Unknown Rx tiotropium bromide 1.25 2 puff inhalation DAILY #4 grams 04/23/23 Unknown Rx mcg/actuation mist for inhalation (Spiriva Respimat) topiramate 50 mg tablet 50 mg PO BID #60 tabs 06/17/23 Unknown Rx azithromycin 250 mg tablet 250 mg PO DAILY #4 TABLETS 09/16/23 Unknown Rx hydrocodone-acetaminophen 5-325mg 1 tab PO Q6H PRN PRN Pain 3 days 09/16/23 Unknown Rx 5mg-325mg #10 TABLETS naproxen 500 mg tablet 500 mg PO BID #14 tabs 09/16/23 Unknown Rx phentermine 37.5 mg tablet 37.5 mg PO DAILY #30 tabs 09/18/23 Unknown Rx (Adipex-P) naproxen 500 mg tablet (Naprosyn) 500 mg PO BID PRN pain #20 tabs 10/11/23 Unknown Rx Allergy/AdvReac Type Severity Reaction Status Date / Time ampicillin Allergy Itching Verified 10/11/23 20:33 Fish Containing Products Allergy Shortness Verified 10/11/23 20:33 of breath Penicillins (PCN) Allergy Shortness Verified 10/11/23 20:33 of breath clindamycin AdvReac Pain in Verified 10/11/23 20:33 joints Family History Mother ADALBERTO III (cervical intraepithelial neoplasia grade III) with severe dysplasia Diabetes Thyroid disorder Grandmother Diabetes Thyroid disorder Other CVA (cerebral vascular accident) Kidney disease Surgical History History of tubal ligation Hx of cholecystectomy Hx of appendectomy Social History adopted: No household members: family housing: house number of children: 5 current occupational status: employed current occupation: [employer] pets and animals: No history of recent travel: No Smoking Status: Former smoker second hand exposure: No alcohol intake: never substance use type: does not use caffeine: No what type of physical activity do you participate in: walking, bicycling and weight training frequency: 3-4 times per week seatbelt use: always do you feel safe at home: Yes additional social history: Boyfriend- Chaz ROWE ROS ED ROS Narrative Constitutional: Negative for fever, chills, malaise. CVS: Negative for palpitations, chest pain. Respiratory: Negative for shortness of breath, cough. Neuro: Negative for headache. EXAM Physical Exam Narrative Exam Narrative: CONST: Patient sitting in no acute distress. EYES: Normal inspection. ENT: Normal posterior oropharynx, moist mucous membranes. NECK: Normal inspection. No midline tenderness or step-offs. Trachea midline, no masses or lymphadenopathy. Tender over right sternocleidomastoid muscle and pain with lateral flexion of the head. Full cervical range of motion, supple, no meningismus. Normal carotid pulses, no bruits. RESP: No respiratory distress, CTAB. No tenderness of clavicles or chest wall. CVS: Regular rate and rhythm, no murmur, no gallop. SKIN: Color normal, no rash, warm, dry, intact. EXTREMITIES: Normal appearance, no pedal edema. NEURO: Alert and answering questions appropriately. PSYCH: Normal affect. Const Vital Signs: 10/11/23 20:31 10/11/23 20:37 Temperature 98 F Temperature Source Temporal Pulse Rate 84 Respiratory Rate 16 Respiratory Effort Normal Non-Labored Short of Breath Respiratory Pattern Normal Blood Pressure 125/89 H Blood Pressure Mean 101 Pulse Ox 100 Oxygen Delivery Method Room Air MDM MDM MDM Narrative Medical decision making narrative: Patient has aching right-sided neck pain over the sternocleidomastoid that is reproducible with with palpation and with left lateral flexion of her head consistent with musculoskeletal pain. She has had no trauma and has no spinal tenderness and no indication for imaging. Her HEENT exam is normal. There are no masses or lymphadenopathy. She has normal carotid pulses and no bruits. She was reassured I think this is muscular and I would trial naproxen and follow-up with her primary care doctor if it does not improve. She was discharged in stable condition. Discharge Plan Triage Chief Complaint: Other, Pain/Inj ED Midlevel Provider: Ute Hussein ED Provider: Jaclyn Guerrero Dx/Rx/DC Orders Clinical Impression: Musculoskeletal neck pain Instructions: ED Neck Pain Prescriptions: New naproxen [Naprosyn] 500 mg tablet 500 mg PO BID PRN (Reason: pain) Qty: 20 0RF No Action citalopram 40 mg tablet 40 mg PO DAILY Qty: 90 3RF epinephrine 0.3 mg/0.3 mL auto-injector 0.3 ml IM PRN (Reason: as needed for allergic reaction) Patient Comments: Inject one syringe in the outer thigh as needed for allergic reaction albuterol sulfate 90 mcg/actuation HFA aerosol inhaler 2 puff INHALATION Q4H PRN (Reason: shortness of breath or wheezing) Qty: 1 3RF Rx Instructions: administer with spacer budesonide-formoterol [Symbicort] 160-4.5 mcg/actuation HFA aerosol inhaler 2 puff inhalation BID Qty: 10.2 6RF cetirizine 10 mg capsule 10 mg PO HS Qty: 90 3RF fluticasone propionate 50 mcg/actuation spray,suspension 2 spray intranasal DAILY Qty: 16 3RF Spiriva Respimat 1.25 mcg/actuation mist 2 puff inhalation DAILY Qty: 4 6RF (DME) spacer See Rx Instructions .ROUTE .MEDSUPPLY Qty: 1 0RF Rx Instructions: As directed topiramate 50 mg tablet 50 mg PO BID Qty: 60 12RF Rx Instructions: take before breakfast and before dinner, take 1/2 tab BID x two weeks then full tab BID phentermine [Adipex-P] 37.5 mg tablet 37.5 mg PO DAILY Qty: 30 0RF Rx Instructions: must administer 30 minutes before or 1-2 hours after breakfast azithromycin 250 mg tablet 250 mg PO DAILY Qty: 4 0RF hydrocodone-acetaminophen 5-325 mg tablet 1 tab PO Q6H PRN PRN (Reason: Pain) 3 Days Qty: 10 0RF naproxen 500 mg tablet 500 mg PO BID Qty: 14 0RF Primary Care Provider: Surendra Chavarria Referrals: Surendra Chavarria DO [Primary Care Provider] - Activity Restrictions/Additional Instructions: I think your neck pain is musculoskeletal. You can take [id number] Tylenol in addition to the prescribed naproxen. Follow-up with your primary care doctor if not improving. Print Language: Kyrgyz Disposition Disposition: Home, Self Care
[2023-10-11] MEDS: Lidocaine 5% Patch 1 PATCH TOPICAL (21:13)
[2023-10-11] MEDS: Naproxen 500 MG Tablet PO (21:13)
== END 2023-10-11 21:31 | disposition home or self-care (01) ==
PROVIDERS: Emergency Provider Emergency Medicine; PCP Preventive Medicine Occupational Medicine; Visit Provider Emergency Medicine
DX: M54.2 Cervicalgia (principal); Z87.891 Personal history of nicotine dependence; Z98.51 Tubal ligation status; Z90.49 Acquired absence of other specified parts of digestive tract; K21.9 Gastro-esophageal reflux disease without esophagitis; J45.909 Unspecified asthma, uncomplicated; F41.9 Anxiety disorder, unspecified; F32.A Depression, unspecified
CPT/HCPCS: 99282

== ENCOUNTER → 2023-10-15 | Outpatient (CLI) | payer OTHER, MEDICAID, SELFPAY ==
[2023-10-22 14:10] LABS: HPV APTIMA, High Risk Negative (Negative)
== END | disposition home or self-care (01) ==
LOC: LABSPEC 16:10
PROVIDERS: PCP Preventive Medicine Occupational Medicine; Referring Provider Nurse Practitioner Family; Visit Provider Nurse Practitioner Family
DX: Z12.4 Encounter for screening for malignant neoplasm of cervix (principal)
CPT/HCPCS: 87624; 88175; G0145

== ENCOUNTER 2023-10-17 15:56 | Outpatient (CLI) | payer OTHER, MEDICAID, SELFPAY ==
[2023-10-17 17:29] LABS: ALB/GLOB Ratio 1.1 RATIO (0.9-2.4); AST(SGOT) 22 U/L (15-37); Alanine Aminotransfer ALT/SGPT 30 U/L (13-56); Albumin, Serum 3.7 g/dL (3.2-5.0); Alkaline Phosphatase 78 U/L (45-117); Anion Gap 5 (5-15); BUN 19 mg/dL (7-18); Calcium,Total 8.6 mg/dL (8.5-10.1); Chloride 111 mmol/L (98-107); EST Glomerular Filtration Rate 73 mL/min (>60); Est Glom Filt Rate - Afr Amer 88 mL/min (>60); Globulin 3.5 g/dL (2.2-4.2); Glucose 76 mg/dL (74-106); Potassium 3.5 mmol/L (3.5-5.1); Protein, Total 7.2 g/dL (6.4-8.2); Sodium Level 141 mmol/L (136-145)
== END 2023-10-17 23:59 | disposition home or self-care (01) ==
LOC: LAB 15:58
PROVIDERS: PCP Preventive Medicine Occupational Medicine; Referring Provider Nurse Practitioner Family; Visit Provider Nurse Practitioner Family
DX: E66.9 Obesity, unspecified (principal); Z68.24 Body mass index [BMI] 24.0-24.9, adult; R73.03 Prediabetes
CPT/HCPCS: 36415; 80053

== ENCOUNTER → 2023-10-30 | Outpatient (CLI) | payer OTHER, MEDICAID, SELFPAY ==
--- NOTE | 2023-10-30 14:17 | US_ITS ---
STUDY: THYROID ULTRASOUND REASON FOR EXAM: Female, 43 years old. re-eval right nodule TECHNIQUE: Ultrasound evaluation of the thyroid was performed with real-time and static garcia-scale imaging. COMPARISON: 09/27/2021 FINDINGS: RIGHT LOBE: The right lobe of the thyroid gland measures 4.6 x 1.2 x 1.2 cm. There is a homogeneous echotexture. Nodule 1: No change in the 5 x 5 x 4 mm mixed cystic and solid isoechoic wider than tall ill-defined margin nodule and no echogenic foci (TR 2) in the mid right lobe consistent with a tiny adenoma. LEFT LOBE: The left lobe of the thyroid gland measures 4.4 x 1.2 x 1.3 cm. There is a homogeneous echotexture. There are no demonstrated solid, cystic or complex lesions. ISTHMUS: The isthmus measures 2 mm thick. . The regional lymph nodes are normal. US/Thyroid IMPRESSION: Essentially normal thyroid ultrasound with no change in a tiny adenoma in the right lobe. Electronically Signed: Morteza Fritz MD at 10:48 EDT ,
== END | disposition home or self-care (01) ==
PROVIDERS: PCP Preventive Medicine Occupational Medicine; Referring Provider Nurse Practitioner Family; Visit Provider Nurse Practitioner Family
DX: E04.1 Nontoxic single thyroid nodule (principal)
CPT/HCPCS: 76536

== ENCOUNTER → 2024-04-07 | Outpatient (CLI) | payer OTHER, MEDICAID, SELFPAY ==
[2024-04-07 17:23] LABS: ALB/GLOB Ratio 1.1 RATIO (0.9-2.4); AST(SGOT) 19 U/L (15-37); Alanine Aminotransfer ALT/SGPT 37 U/L (13-56); Albumin, Serum 4.3 g/dL (3.2-5.0); Alkaline Phosphatase 89 U/L (45-117); Anion Gap 4 (5-15); BUN 16 mg/dL (7-18); BUN/Creat Ratio 21.9 RATIO (10-20); Calcium,Total 9.3 mg/dL (8.5-10.1); Chloride 105 mmol/L (98-107); Creatinine, Serum 0.73 mg/dL (0.55-1.02); EST Glomerular Filtration Rate 93 mL/min (>60); Est Glom Filt Rate - Afr Amer 112 mL/min (>60); Follicle Stimulating Hormone 4.5 mIU/mL; Globulin 3.9 g/dL (2.2-4.2); Glucose 74 mg/dL (74-106); Luteinizing Hormone 6.4 mIU/mL; Protein, Total 8.2 g/dL (6.4-8.2); Sodium Level 136 mmol/L (136-145)
== END | disposition home or self-care (01) ==
LOC: LAB 15:41
PROVIDERS: PCP Preventive Medicine Occupational Medicine; Referring Provider Obstetrics & Gynecology; Visit Provider Obstetrics & Gynecology
DX: Z13.21 Encounter for screening for nutritional disorder (principal); L65.9 Nonscarring hair loss, unspecified
CPT/HCPCS: 36415; 80053; 82306; 82670; 83001; 83002; 84443

== ENCOUNTER → 2024-04-28 | Outpatient (CLI) | payer OTHER, MEDICAID, SELFPAY | END | disposition home or self-care (01) | LOC: LAB 17:54 | PROVIDERS: PCP Preventive Medicine Occupational Medicine; Referring Provider Nurse Practitioner Family; Visit Provider Nurse Practitioner Family | DX: Z00.00 Encounter for general adult medical examination without abnormal findings (principal) ==

== ENCOUNTER → 2024-04-29 | Outpatient (CLI) | payer OTHER, MEDICAID, SELFPAY ==
[2024-04-29 16:33] LABS: Absolute Lymphocyte Count 2.89 X10^3/uL (0.83-4.51); Absolute Neutrophil Count 4.9 X10^3/uL (2.0-7.7); Basophil# 0.09 X10^3/uL; Eosinophil# 0.33 X10^3/uL; Eosinophils% 3.7 % (0-5); Hematocrit 36.9 % (37-47); Hemoglobin 12.2 g/dL (12.0-15.0); Lymphocyte # 2.89 X10^3/ul (0.83-4.51); Lymphocyte % 32.2 % (19-41); Mean Corp Hgb Conc 33.1 g/dL (32-36); Mean Corpuscular Hgb 29.8 pg (27.0-32.0); Mean Platelet Vol. 8.7 fl (6.2-12.0); Monocyte# 0.77 X10^3/uL; Monocyte% 8.6 % (0-10); NRBC Flagged by Analyzer 0 % (0-5); Neutrophil # 4.87 X10^3/uL (2.7-7.7); Neutrophil % 54.2 % (47-70); Platelet Count 322 K/mm3 (150-450); RBC Distribution Width CV 13.1 % (11.6-14.6); RBC Distribution Width SD 42.6 fl (35.1-43.9)
[2024-04-29 17:07] LABS: ALB/GLOB Ratio 1.1 RATIO (0.9-2.4); AST(SGOT) 21 U/L (15-37); Alanine Aminotransfer ALT/SGPT 32 U/L (13-56); Albumin, Serum 3.6 g/dL (3.2-5.0); Alkaline Phosphatase 69 U/L (45-117); Anion Gap 7 (5-15); BUN 13 mg/dL (7-18); BUN/Creat Ratio 14.5 RATIO (10-20); Chloride 112 mmol/L (98-107); EST Glomerular Filtration Rate 74 mL/min (>60); Est Glom Filt Rate - Afr Amer 89 mL/min (>60); Free T3 2.4 pg/mL (2.18-3.98); Globulin 3.3 g/dL (2.2-4.2); Glucose 106 mg/dL (74-106); Potassium 3.5 mmol/L (3.5-5.1); Protein, Total 6.9 g/dL (6.4-8.2); Sodium Level 139 mmol/L (136-145); T4 Free Direct 1.02 ng/dL (0.76-1.46)
[2024-05-01 04:07] LABS: Thyroid Peroxidase AB < 9 IU/mL (0-34)
== END | disposition home or self-care (01) ==
LOC: LAB 16:08
PROVIDERS: PCP Preventive Medicine Occupational Medicine; Referring Provider Nurse Practitioner Family; Visit Provider Nurse Practitioner Family
DX: E66.9 Obesity, unspecified (principal); Z68.23 Body mass index [BMI] 23.0-23.9, adult
CPT/HCPCS: 36415; 80053; 84439; 84443; 84481; 85025; 86376

== ENCOUNTER → 2024-05-29 | Outpatient (CLI) | payer OTHER, MEDICAID, SELFPAY ==
[2024-05-29 12:59] LABS: ALB/GLOB Ratio 1.5 RATIO (0.9-2.4); AST(SGOT) 24 U/L (<=31); Alanine Aminotransfer ALT/SGPT 27 U/L (<=34); Albumin, Serum 4.3 g/dL (3.5-5.0); Alkaline Phosphatase 80 U/L (35-104); Anion Gap 11 (5-15); BUN 18 mg/dL (4-19); Calcium,Total 8.8 mg/dL (7.6-11.0); Carbon Dioxide 21.7 mmol/L (21.0-32.0); Chloride 108 mmol/L (98-108); Creatinine, Serum 1.04 mg/dL (0.70-1.20); EST Glomerular Filtration Rate 69 (>60); Globulin 2.8 g/dL (2.2-4.2); Glucose 106 mg/dL (70-99); Potassium 3.9 mmol/L (3.3-5.1); Protein, Total 7.1 g/dL (5.9-8.4); Sodium Level 141 mmol/L (133-145); Total Bilirubin 0.21 mg/dL (0.00-1.30)
== END | disposition home or self-care (01) ==
LOC: LAB 11:49
PROVIDERS: PCP Preventive Medicine Occupational Medicine; Referring Provider Nurse Practitioner Family; Visit Provider Nurse Practitioner Family
DX: E87.8 Other disorders of electrolyte and fluid balance, not elsewhere classified (principal)
CPT/HCPCS: 36415; 80053

== ENCOUNTER 2024-09-02 14:17 | Emergency (ER) | payer OTHER, MEDICAID, SELFPAY ==
[2024-09-02 14:18] VITALS: BP 143/82; PULSE 106; RESP 16; TEMP 36.6; O2SAT 100; BMI 25.5
--- NOTE | 2024-09-02 14:34 | EX.ED.VIS.PS ---
HPI HPI - Psych History of Present Illness Chief Complaint: Mental Health Detail of Chief Complaint: Anxiety and depression Informant: patient Narrative Narrative: Patient presents with complaint of feeling anxious and depressed because she has been without her medication for about a month. Patient states her doctor retired and has not established with a new physician. Over last 3 days she has been feeling anxious and shaky. Today she went to the dentist and could not tolerate the procedure and was just not acting like herself so she was advised to come in and get evaluated. Patient states that at times her hearts been fluttering and she states sometimes that was related to her thyroid being out of whack. She does not take thyroid medications. She denies feeling suicidal or homicidal. [facility] Medical History Wears contact lenses MRSA infection Thyroid disease Bladder disease Anemia History of hiatal hernia History of IBS Gastric reflux Former smoker History of stress test History of echocardiogram Thyroid nodule Abnormal results of thyroid function studies Prediabetes Anxiety depression Asthma GERD (gastroesophageal reflux disease) Anxiety and depression Home Medications ?Medication ?Instructions ?Recorded ?Last Taken ?Type citalopram 40 mg tablet 40 mg PO DAILY depression #90 tabs 08/15/21 Unknown Rx albuterol sulfate 90 mcg/actuation 2 puff inhalation Q4H PRN 04/23/23 Unknown Rx aerosol inhaler shortness of breath or wheezing #1 ea budesonide-formoterol HFA 160 2 puff inhalation BID #10.2 grams 04/23/23 Unknown Rx mcg-4.5 mcg/actuation aerosol inhaler (Symbicort) cetirizine 10 mg capsule 10 mg PO HS #90 caps 04/23/23 Unknown Rx epinephrine 0.3 mg/0.3 mL 0.3 ml IM PRN as needed for 04/23/23 Unknown History injection, auto-injector allergic reaction fluticasone propionate 50 2 spray intranasal DAILY #16 grams 04/23/23 Unknown Rx mcg/actuation nasal spray,suspension spacer #1 ea 04/23/23 Unknown Rx tiotropium bromide 1.25 2 puff inhalation DAILY #4 grams 04/23/23 Unknown Rx mcg/actuation mist for inhalation (Spiriva Respimat) topiramate 50 mg tablet 50 mg PO BID #60 tabs 02/13/24 Unknown Rx phentermine 37.5 mg tablet 18.75 mg (1/2 x 37.5 mg) PO QDAY 06/30/24 Unknown Rx (Adipex-P) #16 tabs citalopram 40 mg tablet (Celexa) 40 mg PO DAILY #30 tabs 09/02/24 Unknown Rx lorazepam 1 mg tablet (Ativan) 1 mg PO TID PRN anxiety #10 tabs 09/02/24 Unknown Rx Allergy/AdvReac Type Severity Reaction Status Date / Time ampicillin Allergy Itching Verified 09/02/24 14:20 Fish Containing Products Allergy Shortness Verified 09/02/24 14:20 of breath Penicillins (PCN) Allergy Shortness Verified 09/02/24 14:20 of breath clindamycin AdvReac Pain in Verified 09/02/24 14:20 joints Family History Mother ADALBERTO III (cervical intraepithelial neoplasia grade III) with severe dysplasia Diabetes Thyroid disorder Grandmother Diabetes Thyroid disorder Other CVA (cerebral vascular accident) Kidney disease Surgical History History of tubal ligation Hx of cholecystectomy Hx of appendectomy Social History adopted: No household members: family housing: house number of children: 6 current occupational status: employed current occupation: [employer] pets and animals: No history of recent travel: No Smoking Status: Former smoker second hand exposure: No alcohol intake: never substance use type: does not use caffeine: No what type of physical activity do you participate in: walking, bicycling and weight training frequency: 3-4 times per week seatbelt use: always do you feel safe at home: Yes additional social history: Boyfriend- Chaz JAE ROS ED Review of Systems ROS Unobtainable: other Constitutional Constitutional ED: Reports lethargy; Denies chills, fever(s), sweats or weight loss Eyes Eyes: Denies blurry vision, change in vision or diplopia ENT ENT ED: Denies rhinorrhea or sore throat Cardiovascular Cardiovascular: Reports palpitations and racing heartbeat; Denies chest pain or orthopnea Respiratory/Chest Respiratory/Chest: Denies cough, dyspnea, dyspnea on exertion, orthopnea or sputum Gastrointestinal Gastrointestinal: Denies abdominal pain, diarrhea, nausea or vomiting Genitourinary Genitourinary ED: Denies dysuria, hematuria or urinary frequency Musculoskeletal Musculoskeletal: Denies arthralgias, back pain, myalgias or neck pain Integumentary Denies abscess, Abrasions or rash Neurologic Neurologic: Denies headache(s) or weakness Psychiatric Psychiatric: Reports anxiety and depression; Denies suicidal thoughts Endocrine Endocrinology: Denies polydipsia, polyphagia or polyuria Hematologic/Lymphatic Hematologic/Lymphatic: Denies easy bleeding, easy bruising or lymphadenopathy Allergic/Immunologic Allergic/Immunologic ED: Denies mouth swelling, tongue swelling or urticaria EXAM Physical Exam Const Vital Signs: 09/02/24 14:18 Temperature 97.9 F Temperature Source Temporal Pulse Rate 106 H Respiratory Rate 16 Blood Pressure 143/82 H Blood Pressure Mean 102 Pulse Ox 100 Oxygen Delivery Method Room Air Positive well nourished and well developed General Appearance ED: well developed and NAD HEENT Reports TM's clear and moist mucous membranes normocephalic and atraumatic; Negative for trauma or tenderness Tympanic Membrane ED: Yes TM's clear Eyes PERRL and EOMs intact bilaterally General Eye ED: Negative for pale conjunctiva or scleral icterus Neck no lymphadenopathy, supple and no JVD General: Negative for tenderness Chest Wall inspection of chest normal and palpation of chest normal Chest: Negative for tenderness Resp normal respiratory effort and clear to auscultation bilaterally Effort and Inspection: Negative for respiratory distress or pain with movement Auscultation: Negative for rhonchi, wheezes or diminished lung sounds Cardio regular rate, regular rhythm, S1 normal heart sound, S2 normal heart sound and no murmurs Peripheral Pulses: pulses 2+ throughout GI normal to inspection, nondistended, normoactive bowel sounds, soft to palpation, non-tender, non-distended and no masses Back/Spine no CVA tenderness and no thoracic nor lumbar tenderness Extremity normal to inspection General Extremety ED: Negative for edema General Extremity: Negative for edema Neuro oriented x3, CN's II-XII intact bilaterally, no sensory deficits noted and gait normal Sensorium / Orientation: awake, alert, oriented to person, oriented to place and oriented to time Motor Exam: strength 5/5 throughout and strength abnormal Psych mental status grossly normal Skin no rashes or lesions noted and no wounds MDM MDM MDM Narrative Medical decision making narrative: Patient presents with anxiety and depression and ran out of her medications about a month ago. Not suicidal or homicidal. Not hallucinating. Clinically looks well. IV line established. CBC with differential obtained showed a white count 7.6 with hemoglobin 13 and platelet count of 319. Chemistries unremarkable. TSH was normal at 3.0. EKG obtained arrival showed a sinus rhythm with ventricular rate of 98 bpm with occasional PACs but no acute ST segment changes Lab Data Attestation: I reviewed the patient's lab results. Labs: Laboratory Results - last 24 hr 09/02/24 14:38 WBC 7.6 RBC 4.35 Hgb 13.0 Hct 38.9 MCV 89.4 MCH 29.9 MCHC 33.4 RDW Std Deviation 40.7 RDW Coeff of Lamine 12.3 Plt Count 319 MPV 8.5 Immature Gran % (Auto) 0.300 Neut % (Auto) 52.7 Lymph % (Auto) 31.8 Sweet [place] % (Auto) 10.2 H Eos % (Auto) 4.2 Baso % (Auto) 0.8 Absolute Neuts (auto) 4.0 Absolute Lymphs (auto) 2.40 Nucleated RBC % 0 Sodium 138 Potassium 3.4 Chloride 105 Carbon Dioxide 22.2 Anion Gap 11 BUN 14 Creatinine 0.77 Estim Creat Clear Calc 101.09 Est GFR (MDRD) Non-Af 99 BUN/Creatinine Ratio 18.5 Glucose 100 H Calcium 9.0 TSH 3.000 EKG Initial EKG: Attestation: I personally reviewed and interpreted this EKG as follows: Comments: Sinus rhythm with ventricular rate of 98 bpm with occasional PACs Discharge Plan Triage Chief Complaint: Mental Health ED Provider: Joaquín Sousa Dx/Rx/DC Orders Clinical Impression: Depression, Anxiety, Medication refill Instructions: ED Anxiety Reaction, ED Depression Prescriptions: New citalopram [Celexa] 40 mg tablet 40 mg PO DAILY Qty: 30 0RF lorazepam [Ativan] 1 mg tablet 1 mg PO TID PRN (Reason: anxiety) Qty: 10 0RF No Action citalopram 40 mg tablet 40 mg PO DAILY Qty: 90 3RF epinephrine 0.3 mg/0.3 mL auto-injector 0.3 ml IM PRN (Reason: as needed for allergic reaction) Patient Comments: Inject one syringe in the outer thigh as needed for allergic reaction albuterol sulfate 90 mcg/actuation HFA aerosol inhaler 2 puff INHALATION Q4H PRN (Reason: shortness of breath or wheezing) Qty: 1 3RF Rx Instructions: administer with spacer budesonide-formoterol [Symbicort] 160-4.5 mcg/actuation HFA aerosol inhaler 2 puff inhalation BID Qty: 10.2 6RF cetirizine 10 mg capsule 10 mg PO HS Qty: 90 3RF fluticasone propionate 50 mcg/actuation spray,suspension 2 spray intranasal DAILY Qty: 16 3RF Spiriva Respimat 1.25 mcg/actuation mist 2 puff inhalation DAILY Qty: 4 6RF (DME) spacer See Rx Instructions .ROUTE .MEDSUPPLY Qty: 1 0RF Rx Instructions: As directed phentermine [Adipex-P] 37.5 mg tablet 18.75 mg PO QDAY Qty: 16 0RF Rx Instructions: must administer 30 minutes before or 1-2 hours after breakfast topiramate 50 mg tablet 50 mg PO BID Qty: 60 12RF Rx Instructions: take before breakfast and before dinner, take 1/2 tab BID x two weeks then full tab BID Primary Care Provider: Care Physician,No Primary Referrals: Surendra Chavarria DO [Non-Staff] - Print Language: Ghanaian Disposition Disposition: Home, Self Care
[2024-09-02 14:46] LABS: Basophil# 0.06 X10^3/uL; Basophil% 0.8 % (0-1); Eosinophil# 0.32 X10^3/uL; Eosinophils% 4.2 % (0-5); Hematocrit 38.9 % (37-47); Lymphocyte % 31.8 % (19-41); Mean Corp Hgb Conc 33.4 g/dL (32-36); Mean Corpuscular Hgb 29.9 pg (27.0-32.0); Mean Corpuscular Volume 89.4 fL (81-99); Mean Platelet Vol. 8.5 fl (6.2-12.0); Monocyte# 0.77 X10^3/uL; Monocyte% 10.2 % (0-10); NRBC Flagged by Analyzer 0 % (0-5); Neutrophil # 3.98 X10^3/uL (2.7-7.7); Neutrophil % 52.7 % (47-70); Platelet Count 319 K/mm3 (150-450); RBC Distribution Width CV 12.3 % (11.6-14.6); RBC Distribution Width SD 40.7 fl (35.1-43.9); Red Blood Count 4.35 M/mm3 (4.2-5.4); White Blood Count 7.6 K/mm3 (4.4-11.0)
[2024-09-02] MEDS: Citalopram 40 MG TABLET PO (15:00)
[2024-09-02 15:32] LABS: Anion Gap 11 (5-15); BUN 14 mg/dL (4-19); BUN/Creat Ratio 18.5 RATIO (10-20); Carbon Dioxide 22.2 mmol/L (21.0-32.0); Chloride 105 mmol/L (98-108); Creatinine, Serum 0.77 mg/dL (0.70-1.20); EST Glomerular Filtration Rate 99 (>60); Estimated Creatinine Clearance 101.09 ml/min (50-250); Glucose 100 mg/dL (70-99); Potassium 3.4 mmol/L (3.3-5.1); Sodium Level 138 mmol/L (133-145)
[2024-09-02 16:18] VITALS: BP 117/78; PULSE 85; RESP 15; TEMP 36.6; O2SAT 100
== END 2024-09-02 16:18 | disposition home or self-care (01) ==
PROVIDERS: Emergency Provider Emergency Medicine; Visit Provider Emergency Medicine
DX: F41.9 Anxiety disorder, unspecified (principal); F32.A Depression, unspecified; Z91.148 Patient's other noncompliance with medication regimen for other reason; J45.909 Unspecified asthma, uncomplicated; K21.9 Gastro-esophageal reflux disease without esophagitis; R73.03 Prediabetes; Z76.0 Encounter for issue of repeat prescription; Z79.899 Other long term (current) drug therapy; Z87.891 Personal history of nicotine dependence
CPT/HCPCS: 80048; 84443; 85025; 93005; 99283

== ENCOUNTER → 2024-10-20 | Outpatient (CLI) | payer OTHER, MEDICAID, SELFPAY ==
--- NOTE | 2024-10-20 15:38 | BI_ITS ---
EXAM: SCRN MAMM (CAD)W/VALERIE BILAT DATE: 10/20/2024 CLINICAL HISTORY: F, Age 43 y/o , SCREEN FOR BREAST CANCER TECHNIQUE: SCRN MAMM (CAD)W/VALERIE BILAT COMPARISON: Prior exam(s) were compared FINDINGS: TISSUE DENSITY: The breasts are heterogeneously dense, which may obscure small masses. Bilateral Breast Mammographic Findings: No suspicious masses, calcifications or other abnormalities are identified. BI/SCRN MAMM (CAD)W/VALERIE BILAT IMPRESSION: No mammographic evidence of malignancy in either breast. OVERALL FINAL ASSESSMENT BI-RADS 1: NEGATIVE. RECOMMENDATION: Routine annual follow-up in 1 Year A letter with findings and recommendations will be mailed to the patient. Reading Location: [id number]
--- OUTSIDE RECORDS SUMMARY | 2024-10-20 21:10 | XMS RPT_ITS | CCD ---
Author Organization [facility]ini[facility] Care Team Providers Care Commercial Fisher Name Role Phone Chago Flory ABRAHAM Unavailable Michael Aguirre Primary Care Provider [phone] Dr. Michael Aguirre Primary Care Provider Dr. Michael Aguirre Referring Provider [phone] QUANTITATIVE CONSULTANT, QUANTITATIVE CONSULTANT-C Terri Attending Provider Kristal ABRAHAM, QUANTITATIVE CONSULTANT-C Valerie Attending Provider Dr. Michael Aguirre Primary Care Provider Dr. Michael Aguirre Referring Provider [phone] Dr. Nick Mason Referring Provider Dr. Nick Mason Other Provider Yair ABRAHAM, QUANTITATIVE CONSULTANT-C Terri Other Provider Dr. Nicola Nix Attending Provider Dr. Michael Aguirre Primary Care Provider Dr. Darrel Mason Other Provider Yair ABRAHAM, QUANTITATIVE CONSULTANT-C Terri Referring Provider Dr. Michael Aguirre Referring Provider [phone] MARLENE Guzman Attending Provider Michael Aguirre Primary Care Provider [phone] Michael Aguirre DO Primary Care Provider [phone] Dr. Michael Aguirre Primary Care Provider Dr. Michael Aguirre Referring Provider [phone] MARLENE Guzman Attending Provider Dr. Michael Aguirre Primary Care Provider Dr. Michael Aguirre Referring Provider [phone] Dr. Nicola Nix Attending Provider MARLENE Ortiz Attending Provider Kristal QUANTITATIVE CONSULTANT, QUANTITATIVE CONSULTANT-C Valerie Attending Provider [phone] Yair QUANTITATIVE CONSULTANT, QUANTITATIVE CONSULTANT-C Terri Attending Provider Dr. Hector Alvarez Attending Provider Dr. Michael Aguirre Primary Care Provider Dr. Michael Aguirre Referring Provider [phone] Kristal QUANTITATIVE CONSULTANT, QUANTITATIVE CONSULTANT-C Valerie Attending Provider [phone] Yair QUANTITATIVE CONSULTANT, QUANTITATIVE CONSULTANT-C Terri Attending Provider Dr. Michael Aguirre Primary Care Provider Dr. Michael Aguirre Referring Provider [phone] Dr. Janine Koch Attending Provider [phone] Michael Aguirre DO Primary Care Provider [phone] Dr. Michael Aguirre Primary Care Provider Dr. Michael Aguirre Referring Provider [phone] Dr. Janine Koch Attending Provider [phone] Yair ABRAHAM, LEIGH-C Terri Attending Provider Michael Aguirre DO Primary Care Provider [phone] Dr. Michael Aguirre DO Primary Care Provider [phone] Dr. Jaclyn Martinez DO Attending Provider Dr. Jaclyn Martinez DO Referring Provider Dr. Michael Aguirre DO Referring Provider Xochilt Valentin Attending Provider [phone] Krish RODRIGUEZCXochilt Referring Provider [phone] CARLA, MICHAEL F Primary Care Unavailable CARLA, MICHAEL F Primary Care Unavailable CARLA, MICHAEL F Primary Care Unavailable CARLA, MICHAEL F Primary Care Unavailable CARLA, MICHAEL F Primary Care Unavailable CarlaDr. Michael mccullough DO Primary Care Provider [phone] Krish QUANTITATIVE CONSULTANT-C, Xochilt Attending Provider [phone] Krish QUANTITATIVE CONSULTANT-C, Xochilt Referring Provider [phone] Michael Aguirre DO Referring Provider Dr. Joaquín Sousa DO Emergency Provider [phone] Care Physician, No Primary Primary Care Provider Unavailable Carla ELDER, Dr. Agosto Primary Care Provider [phone] Krish QUANTITATIVE CONSULTANT-C, Xochilt Attending Provider [phone] Joaquín Sousa DO Attending Provider Care Physician, No Primary Referring Provider Un available Xochilt Rutherford Attending Unavailable Care Physician, No Primary Referring Unava ilable Care Physician, No Primary Primary Care Unava ilable Xochilt Rutherford Attending Unavailable Xochilt Rutherford Referring Unavailable Carla, Michael Primary Care Unavailable Xochilt Rutherford Attending Unavailable Xochilt Rutherford Referring Unavailable Carla, Michael Primary Care Unavailable Janine Koch Attending Unavailable Carla, Michael Primary Care Unavailable Carla, Michael Referring Unavailable Xochilt Rutherford Attending Unavailable Carla, Michael Primary Care Unavailable Carla, Michael Referring Unavailable Carla, Michael Referring Unavailable Carla, Michael Primary Care Unavailable Janine Koch Attending Unavailable Xochilt Rutherford Attending Unavailable Carla, Michael Primary Care Unavailable Carla, Michael Referring Unavailable Xochilt Rutherford Attending Unavailable Care Physician, No Primary Referring Unava ilable Care Physician, No Primary Primary Care Unava ilable Xochilt Rutherford Attending Unavailable Carla, Michael Primary Care Unavailable Carla, Michael Referring Unavailable Nicola Nix Attending Unavailable Carla, Michael Referring Unavailable Carla, Michael Primary Care Unavailable Jaclyn Martinez Referring Unavailabl e Jaclyn Martinez Attending Unavailabl e Carla, Michael Primary Care Unavailable Xochilt Rutherford Attending Unavailable Xochilt Rutherford Referring Unavailable Carla, Michael Primary Care Unavailable Xochilt Rutherford Attending Unavailable Xochilt Rutherford Referring Unavailable Michael Aguirre Primary Care Unavailable Care Physician, No Primary Primary Care Unava ilable Ungur, Remus Attending Unavailable Xochilt Rutherford Attending Unavailable Xochilt Rutherford Referring Unavailable Michael Aguirre Primary Care Unavailable Xochilt Rutherford Attending Unavailable Xochilt Rutherford Referring Unavailable Care Physician, No Primary Primary Care Unava ilable Jaclyn Martinez Referring UnavailJaclyn De Los Santos Attending UnavailMichael Dale Primary Care Unavailable Xochilt Rutherford Attending Unavailable Michael Aguirre Primary Care Unavailable Tirso DOW, Dr. [place] Attending Provider Allergies Allergy Classification Reported Allergen(s) Allergy Type Date of Onset Reaction(s) Facility (20 sources) Clindamycin; Translations: [CLINDAMYCIN] Drug Allergy 0 Shortness of Breath [facility] (9 sources) Penicillins; Translations: [PENICILLINS] Propensity to adverse reactions 5 Shortness of Breath [facility] Work Phone: (19 sources) Ampicillin Drug Allergy 2 Itching [facility] (20 sources) Fish Containing Products; Translations: [Fish Containing Products] Allergy to substance 2 Shortness of breath [facility] (14 sources) Penicillins Allergy to substance 2 Shortness of breath [facility] (18 sources) Penicillins Propensity to adverse reactions 5 Shortness of Breath [facility] Work Phone: (1 source) Penicillins Propensity to adverse reactions 5 Shortness of Breath [facility] Work Phone: (1 source) Ampicillin Drug Allergy 5 [facility] (1 source) Clindamycin Drug Allergy 5 [facility] (1 source) Penicillins Drug allergy (disorder) 5 [facility] Medications Current Medications Medication Drug Class(es) Dates Sig (Normalized) Sig (Original) azithromycin 250 mg oral tablet (6 sources) Macrolide Antimicrobial Start: 05-17-2024 take 2 tablets by mouth once daily, then take 1 tablet by mouth once daily azithromycin (ZITHROMAX Z-REYNALDO) 250 mg tablet Indications: Pain, dental Take 2 tablets by mouth once daily for 1 day, then 1 tablet once daily for 4 days 6 tablet 05/17/2024 Active Start: 09-16-2023 End: 10-15-2023 take 1 tablet by mouth once daily Azithromycin 250 mg tablet Discontinued 250 mg PO DAILY 4 0 September 16, 2023 12:00am October 15, 2023 1:45pm benzonatate 100 mg oral capsule (16 sources) Non-narcotic Antitussive Start: 07-07-2023 take 2 capsules by mouth every eight hours as needed benzonatate (TESSALON PERLES) 100 mg capsule Take 2 capsules by mouth three times a day as needed. 30 capsule 07/07/2023 Active Start: 12-10-2020 End: 12-04-2022 benzonatate (TESSALON PERLE) 100 mg capsule Take 1-2 capsules tid prn, no more than 6 in 24 hours. 30 capsule 12/10/2020 12/04/2022 Discontinued (Course of therapy completed) Comment on above: Take 1-2 capsules ti d prn, no more than 6 in 24 hours. Take 2 capsules by m outh three times a day as needed. Budesonide-Formoterol (20 sources) Corticosteroid, beta2-Adrenergic Agonist Start: 04-23-2023 Budesonide-Formoterol (Symbicort) 160-4.5 mcg/actuation HFA aerosol inhaler Active 2 NMA INHALATION TWICE A DAY 10.2 6 April 23, 2023 3:48pm P-ANCA titer positive Other specified abnormal immunological findings in serum Start: 04-23-2023 Budesonide-For moterol (Symbicort) 160-4.5 mcg/actuation HFA aerosol inhaler Active 2 NMA INHALATION TWICE A DAY 10.2 April 23, 2023 3:48pm Start: 04-23-2023 take 1 puff(s) by in halation twice daily Budesonide-Formoterol (Symbicort) 160-4.5 mcg/actuation HFA aerosol inhaler Active 2 PUFF INHALATION TWICE A DAY 10.2 April 23, 2023 3:48pm Start: 09-30-2022 End: 04-23-2023 Budesonide-Formoterol (Symbi aubree) 160-4.5 mcg/actuation HFA aerosol inhaler Discontinued 2 NMA INHALATION TWICE A DAY 10.2 September 30, 2022 2:05pm April 23, 2023 3:48pm Start: 09-30-2022 End: 04-23-2023 Budesonide-Formoterol (Symbi aubree) 160-4.5 mcg/actuation HFA aerosol inhaler Discontinued 2 NMA INHALATION TWICE A DAY 10.2 September 30, 2022 2:05pm April 23, 2023 3:48pm Start: 09-30-2022 End: 04-23-2023 take 1 puff(s) by inhalation twice daily Budesonide-Formoterol (Symbicort) 160-4.5 mcg/actuation HFA aerosol inhaler Discontinued 2 PUFF INHALATION TWICE A DAY 10.2 September 30, 2022 2:05pm April 23, 2023 3:48pm Start: 09-30-2022 take 1 puff(s) by in halation twice daily Budesonide-Formoterol (Symbicort) 160-4.5 mcg/actuation HFA aerosol inhaler Active 2 PUFF INHALATION TWICE A DAY 10.2 September 30, 2022 2:05pm Start: 03-26-2022 End: 09-30-2022 Budesonide-Formoterol (Symbi aubree) 160-4.5 mcg/actuation HFA aerosol inhaler Discontinued 2 NMA INHALATION TWICE A DAY 10.2 March 26, 2022 1:00am September 30, 2022 2:06pm Start: 03-26-2022 End: 09-30-2022 Budesonide-Formoterol (Symbi aubree) 160-4.5 mcg/actuation HFA aerosol inhaler Discontinued 2 NMA INHALATION TWICE A DAY 10.2 March 26, 2022 1:00am September 30, 2022 2:06pm Start: 03-26-2022 End: 09-30-2022 take 1 puff(s) by inhalation twice daily Budesonide-Formoterol (Symbicort) 160-4.5 mcg/actuation HFA aerosol inhaler Discontinued 2 PUFF INHALATION TWICE A DAY 10.2 March 26, 2022 1:00am September 30, 2022 2:06pm Start: 03-26-2022 take 1 puff(s) by in halation twice daily Budesonide-Formoterol (Symbicort) 160-4.5 mcg/actuation HFA aerosol inhaler Active 2 PUFF INHALATION TWICE A DAY 10.2 March 26, 2022 1:00am Start: 03-26-2022 take 1 puff(s) by in halation twice daily Budesonide-Formoterol (Symbicort) 160-4.5 mcg/actuation HFA aerosol inhaler Active 2 PUFF INHALATION TWICE A DAY 10.2 March 26, 2022 12:00am Start: 03-14-2021 take 1 puff(s) by in halation twice daily Budesonide-Formoterol (Symbicort) 160-4.5 mcg/actuation HFA aerosol inhaler Active 2 PUFF INHALATION TWICE A DAY 10.2 March 14, 2021 2:31pm Start: 03-14-2021 End: 08-15-2021 Budesonide-Formoterol (Symbi aubree) 160-4.5 mcg/actuation HFA aerosol inhaler Discontinued 2 NMA INHALATION TWICE A DAY 10.2 3 March 14, 2021 1:00am August 15, 2021 9:27am Start: 03-14-2021 End: 08-15-2021 Budesonide-Formoterol (Symbi aubree) 160-4.5 mcg/actuation HFA aerosol inhaler Discontinued 2 NMA INHALATION TWICE A DAY 10.2 March 14, 2021 1:00am August 15, 2021 9:27am Start: 03-14-2021 End: 08-15-2021 take 1 puff(s) by inhalation twice daily Budesonide-Formoterol (Symbicort) 160-4.5 mcg/actuation HFA aerosol inhaler Discontinued 2 PUFF INHALATION TWICE A DAY 10.2 March 14, 2021 12:00am August 15, 2021 8:27am Start: 03-14-2021 End: 08-15-2021 take 1 puff(s) by inhalation twice daily Budesonide-Formoterol (Symbicort) 160-4.5 mcg/actuation HFA aerosol inhaler Discontinued 2 PUFF INHALATION TWICE A DAY 10.2 March 14, 2021 1:00am August 15, 2021 9:27am Start: 02-15-2020 End: 08-20-2022 Budesonide-Formoterol 160-4. 5 mcg/actuation HFA aerosol inhaler Discontinued 2 NMA INHALATION TWICE A DAY as needed for breathing February 15, 2020 2:12pm August 20, 2022 2:51pm Start: 02-15-2020 End: 08-20-2022 take 1 puff(s) by inhalation twice daily Budesonide-Formoterol Discontinued 2 PUFF INHALATION TWICE A DAY February 15, 2020 2:12pm August 20, 2022 2:51pm Start: 02-15-2020 take 1 puff(s) by in halation twice daily Budesonide-Formoterol Active 2 PUFF INHALATION TWICE A DAY February 15, 2020 1:12pm Start: 02-15-2020 take 1 puff(s) by in halation twice daily Budesonide-Formoterol Active 2 PUFF INHALATION TWICE A DAY February 15, 2020 2:12pm Start: 01-04-2020 End: 02-15-2020 Budesonide-Formoterol 10.2 G M HFA aerosol inhaler Discontinued 2 NMA INHALATION TWICE A DAY as needed for breathing January 04, 2020 7:23am February 15, 2020 2:13pm Start: 01-04-2020 End: 02-15-2020 take 1 puff(s) by inhalation twice daily Budesonide-Formoterol Discontinued 2 PUFF INHALATION TWICE A DAY January 04, 2020 6:23am February 15, 2020 1:13pm Start: 01-04-2020 End: 02-15-2020 take 1 puff(s) by inhalation twice daily Budesonide-Formoterol Discontinued 2 PUFF INHALATION TWICE A DAY January 04, 2020 7:23am February 15, 2020 2:13pm Start: 06-22-2019 End: 01-04-2020 Budesonide-Formoterol (Symbi aubree) 160-4.5 mcg/actuation HFA aerosol inhaler Discontinued 2 NMA INHALATION TWICE A DAY 1 June 22, 2019 10:32am January 04, 2020 7:23am Start: 06-22-2019 End: 01-04-2020 take 1 puff(s) by inhalation twice daily Budesonide-Formoterol (Symbicort) 160-4.5 mcg/actuation HFA aerosol inhaler Discontinued 2 PUFF INHALATION TWICE A DAY 1 June 22, 2019 10:32am January 04, 2020 7:23am Start: 05-11-2019 End: 06-22-2019 Budesonide-Formoterol (Symbi aubree) 160-4.5 mcg/actuation HFA aerosol inhaler Discontinued 2 NMA INHALATION TWICE A DAY 1 3 May 11, 2019 1:00am June 22, 2019 10:32am Start: 05-11-2019 End: 06-22-2019 take 1 puff(s) by inhalation twice daily Budesonide-Formoterol (Symbicort) 160-4.5 mcg/actuation HFA aerosol inhaler Discontinued 2 PUFF INHALATION TWICE A DAY 1 May 11, 2019 1:00am June 22, 2019 10:32am diclofenac sodium 0.01 mg/mg topical gel (11 sources) Nonsteroidal Anti-inflammatory Drug Start: 12-04-2022 apply 2 g topically four times daily diclofenac (VOLTAREN) 1 % topical gel Apply 2 g to affected area four times daily. 100 g 12/04/2022 Active Comment on above: Apply 2 g to affecte d area four times daily. doxycycline hyclate 100 mg oral tablet (20 sources) Tetracycline-class Drug Start: 06-23-2024 End: 07-03-2024 take 1 tablet by mouth twice daily doxycycline (VIBRA-TABS) 100 mg tablet Indications: Dental infection Take 1 tablet by mouth two times a day for 10 days. 20 tablet 06/23/2024 07/03/2024 Active Start: 12-02-2023 End: 12-07-2023 take 1 tablet by mouth twice daily doxycycline monohydrate 100 mg tablet Indications: Cellulitis of skin Take 1 tablet by mouth two times a day for 5 days. 10 tablet 12/02/2023 12/07/2023 Active Start: 05-24-2019 End: 06-03-2019 take 1 capsule by mouth twice daily Doxycycline Hyclate 100 mg capsule Discontinued 100 mg PO TWICE A DAY 20 10 0 May 24, 2019 1:00am June 02, 2019 12:00am June 03, 2019 12:07am Acute sinusitis, unspecified [id number] 0.3 ml EPINEPHrine 1 mg/ml auto-injector (20 sources) alpha-Adrenergic Agonist, beta-Adrenergic Agonist, Catecholamine Start: 04-23-2023 Epinephrine 0.3 mg/0.3 mL auto-injector Active 0.3 mL IM as needed for as needed for allergic reaction April 23, 2023 1:00am Start: 04-23-2023 Epinephrine Ac tive 0.3 ML IM April 23, 2023 1:00am Start: 12-21-2013 EPINEPHrine (E PIPEN) 0.3 mg/0.3 mL (1:1,000) atIn Indications: Toxic effect of fish and shellfish(988.0) Inject intramuscularly. use as directed for allergic reaction. Seek emergent medical care immediately after use. 1 Each 3 12/21/2013 Active Comment on above: Inject intramuscular ly. use as directed for allergic reaction. Seek emergent medical care immediately after use. erythromycin 0.005 mg/mg ophthalmic ointment (1 source) Macrolide, Macrolide Antimicrobial Start: End: erythromycin (ROMYCIN) 5 mg/gram (0.5 %) ophthalmic ointment Indications: Acute conjunctivitis of left eye, unspecified acute conjunctivitis type Use 1 application in the left eye four times daily for 7 days. 3.5 g 06/23/2024 06/30/2024 Active LORazepam 1 mg oral tablet (13 sources) Benzodiazepine Start: take 1 tablet by mouth three times daily as needed for anxiety Lorazepam (Ativan) 1 mg tablet Active 1 mg PO THREE TIMES A DAY as needed for anxiety 10 0 September 02, 2024 12:00am Start: 07-25-2015 End: 12-04-2022 take 1 tablet by mouth three times daily as needed for anxiety LORazepam (ATIVAN) 0.5 mg tab Indications: Panic attacks Take 1 tablet by mouth three times daily as needed (anxiety). 15 tablet 0 07/25/2015 12/04/2022 Discontinued (Course of therapy completed) Comment on above: Take 1 tablet by sweta three times daily as needed (anxiety). montelukast 10 mg oral tablet (20 sources) Leukotriene Receptor Antagonist Start: 06-25-2022 montelukast (SINGULAIR) 10 mg tablet 06/25/2022 Active Start: 05-11-2019 End: 04-30-2022 take 1 tablet by mouth once daily as needed Montelukast 10 mg tablet Discontinued 10 mg PO DAILY as needed for allergy February 15, 2020 2:12pm April 30, 2022 3:37pm nystatin [id number] unt/ml oral suspension (3 sources) Polyene Antifungal Start: 05-24-2023 End: 05-31-2023 nystatin (MYCOSTATIN) 100,000 unit/mL suspension Take 5 mL by mouth four times daily for 7 days. 1tsp swish in mouth for several minutes, then swallow (or expectorate) 4 times daily until gone. 140 mL 0 05/24/2023 05/31/2023 Active Comment on above: Take 5 mL by mouth f our times daily for 7 days. 1tsp swish in mouth for several minutes, then swallow (or expectorate) 4 times daily until gone. phenazopyridine hydrochloride 100 mg oral tablet (1 source) Start: 04-16-2022 take 1 tablet by mouth three times daily at mealtime Phenazopyridine (Pyridium) 100 mg tablet Active 100 MG PO THREE TIMES A DAY April 16, 2022 12:00am administer with a full glass of water after each meal predniSONE 20 mg oral tablet (20 sources) Start: 07-07-2023 End: 07-12-2023 take 2 tablets by mouth once daily predniSONE (DELTASONE) 20 mg tablet Take 2 tablets by mouth once daily for 5 days. 10 tablet 0 07/07/2023 07/12/2023 Active Start: 02-11-2022 End: 03-09-2022 predniSONE (DELTASONE) 10 mg tablet Indications: Wheezing Take 4 tabs daily for 3 days, then 2 tabs daily for 3 days, then 1 tab daily for 3 days with food. 21 tablet 0 02/28/2022 03/09/2022 Active Start: 06-29-2021 End: 08-15-2021 take 3 tablets by mouth once daily at mealtime Prednisone 20 mg tablet Discontinued 60 mg PO daily June 29, 2021 12:00am August 15, 2021 9:28am Asthma Unspecified asthma, uncomplicated administer with food or milk Start: 06-29-2021 End: 08-15-2021 take 60 mg by mouth once daily at mealtime Prednisone Discontinued 60 MG PO daily June 29, 2021 12:00am August 15, 2021 9:28am administer with food or milk Start: 02-13-2021 End: 08-15-2021 take 1 tablet by mouth once daily Prednisone 10 mg tablet Discontinued 10 mg PO DAILY 5 0 February 13, 2021 1:00am August 15, 2021 9:28am Asthma Unspecified asthma, uncomplicated Start: 05-11-2019 End: 05-16-2019 take 2 tablets by mouth once daily Prednisone 20 mg tablet Discontinued 40 mg PO DAILY 10 5 May 11, 2019 1:00am May 15, 2019 1:00am May 16, 2019 1:08am Start: 05-11-2019 End: 05-16-2019 take 40 mg by mouth once daily Prednisone Discontinued 40 MG PO DAILY 10 May 11, 2019 1:00am May 16, 2019 1:08am Comment on above: Take 4 tabs daily fo r 3 days, then 2 tabs daily for 3 days, then 1 tab daily for 3 days with food. Take 2 tablets by [facility] once daily for 5 days. spacer (5 sources) Start: 04-23-2023 spacer Active 0 .ROUTE .MEDSUPPLY 1 April 23, 2023 1:00am P-ANCA titer positive Other specified abnormal immunological findings in serum As directed Start: 04-23-2023 spacer Active 0 .ROUTE .MEDSUPPLY 1 April 23, 2023 1:00am As directed sulfamethoxazole 800 mg / trimethoprim 160 mg oral tablet (15 sources) Dihydrofolate Reductase Inhibitor Antibacterial, Sulfonamide Antimicrobial Start: 04-09-2024 End: 04-14-2024 take 1 tablet by mouth twice daily sulfamethoxazole-trimethoprim (BACTRIM DS) 800-160 mg per tablet Take 1 tablet by mouth two times a day for 5 days. 10 tablet 04/09/2024 04/14/2024 Active Start: 12-22-2021 End: 04-16-2022 Sulfamethoxazole-Trimethopri m 800-160 mg tablet Discontinued 1 {tbl} PO TWICE A DAY 14 December 22, 2021 12:00am April 16, 2022 2:03pm Start: 12-22-2021 End: 04-16-2022 take 1 tablet by mouth twice daily Sulfamethoxazole-Trimethoprim Discontinu ed 1 TABLET PO TWICE A DAY December 22, 2021 12:00am April 16, 2022 2:03pm Completed/Discontinued Medications Medication Drug Class(es) Dates Sig (Normalized) Sig (Original) acetaminophen 325 mg / HYDROcodone bitartrate 5 mg oral tablet (20 sources) Opioid Agonist Start: 09-16-2023 End: 10-15-2023 Hydrocodone-Acetami nophen 5-325 mg tablet Discontinued 1 {tbl} PO EVERY 6 HOURS NEEDED as needed for Pain 10 3 0 September 16, 2023 October 15, 2023 1:45pm Dental abscess Symptomatic reversible pulpitis Symptomatic irreversible pulpitis Periapical abscess without sinus Reversible pulpitis Irreversible pulpitis Start: 02-21-2017 End: 12-04-2022 HYDROcodone-acetaminophen (N ORCO) 5-325 mg per tablet 02/21/2017 12/04/2022 Discontinued (Course of therapy completed) Start: 02-19-2017 End: 12-04-2022 HYDROcodone-Acetaminophen (H YCET) 7.5-325 mg/15 mL oral liquid 02/19/2017 12/04/2022 Discontinued (Course of therapy completed) acetaminophen 325 mg / oxyCODONE hydrochloride 5 mg oral tablet (19 sources) Opioid Agonist Start: 01-06-2020 End: 01-09-2020 Oxycodone-Acetaminophen 1 TABLET tablet Discontinued 1 - 2 {tbl} PO EVERY 4 HOURS NEEDED as needed for Pain 10 3 0 January 06, 2020 January 08, 2020 12:00am January 09, 2020 12:03am Other acute postprocedural pain Start: 01-06-2020 End: 01-09-2020 take 1 tablet by mouth every four hours as needed Oxycodone-Acetaminophen Discontinued 1 - 2 TABLET PO EVERY 4 HOURS NEEDED 10 3 January 06, 2020 January 09, 2020 12:03am [id number] 200 actuat albuterol 0.09 mg/actuat metered dose inhaler (20 sources) beta2-Adrenergic Agonist Start: 03-14-2021 take 1 puff(s) by inhalation every four hours Albuterol Sulfate Active 2 PUFF INHALATION Q4H 8.5 March 14, 2021 2:31pm administer with spacer Start: 05-11-2019 End: 04-23-2023 Albuterol Sulfate 90 mcg/act uation HFA aerosol inhaler Discontinued 2 NMA INHALATION Q4H as needed for shortness of breath or wheezing 1 3 November 10, 2020 12:27pm March 26, 2022 3:06pm administer with spacer Start: 05-11-2019 End: 04-23-2023 take 1 puff(s) by inhalation every four hours Albuterol Sulfate Discontinued 2 PUFF INHALATION Q4H November 10, 2020 12:27pm March 26, 2022 3:06pm administer with spacer Start: 11-08-2015 take 2 puff(s) by in halation every four hours as needed for wheezing albuterol HFA (PROVENTIL HFA, VENTOLIN HFA) 90 mcg/actuation inhaler Indications: Wheezing Inhale 2 Puffs as instructed every 4 hours as needed for wheezing/shortness of breath. 1 Each 02/28/2022 Active Comment on above: Inhale 2 Puffs as in structed every 4 hours as needed. Inhale 2 Puffs as in structed every 4 hours as needed for wheezing/shortness of breath. albuterol 0.833 mg/ml / ipratropium bromide 0.167 mg/ml inhalation solution (19 sources) Anticholinergic, beta2-Adrenergic Agonist Start: 05-12-19 End: 05-11-19 take 1 mL by inhalation every eight hours Ipratropium-Albutero l 0.5 mg-3 mg(2.5 mg base)/3 mL solution for nebulization Discontinued 3 mL INHALATION Q8H 90 0 May 12, 2018 1:00am May 11, 2019 8:15am Unspecified asthma with (acute) exacerbation Start: 05-12-2018 End: 05-11-2019 take 1 mL by inhalation every eight hours Ipratropium-Albuterol Discontinued 3 ML INHALATION Q8H 90 May 12, 2018 1:00am May 11, 2019 8:15am biotin 2.5 mg oral capsule (4 sources) take 1 tablet by mouth once daily BIOTIN 2500 MCG CAPS One tablet by mouth daily BIOTIN [id number] Flory Anders NP cephalexin 500 mg oral capsule (20 sources) Cephalosporin Antibacterial Start: 5 End: 5 take 1 capsule by mouth four times daily cephALEXin (KEFLEX) 500 mg capsule Indications: Pain, dental Take 1 capsule by mouth four times daily for 7 days. 28 capsule 05/17/2024 05/17/2024 Discontinued Start: 12-28-2012 End: 03-20-2013 take 1 capsule by mouth four times daily Cephalexin (Keflex) 500 MG capsule Discontinued 500 mg PO 4 TIMES DAILY 40 0 December 28, 2012 12:00am March 20, 2013 11:33pm cetirizine hydrochloride 10 mg oral capsule (20 sources) Histamine-1 Receptor Antagonist Start: 06-29-2021 End: 04-23-2023 take 1 capsule by mouth at bedtime Cetirizine 10 mg capsule Discontinued 10 mg PO BEDTIME 90 3 September 30, 2022 2:05pm April 23, 2023 3:48pm Asthma Unspecified asthma, uncomplicated citalopram 40 mg oral tablet (20 sources) Serotonin Reuptake Inhibitor Start: 05-09-2013 End: 10-19-2024 take 1 tablet by mouth once daily Citalopram (Celexa) 40 mg tablet Discontinued 40 mg PO DAILY 30 0 September 02, 2024 12:00am September 28, 2024 2:52pm Comment on above: Take 1 tablet by sweta once daily. dicyclomine hydrochloride 10 mg oral capsule (10 sources) Anticholinergic Start: 05-14-2017 End: 12-04-2022 take 1 capsule by mouth at bedtime dicyclomine (BENTYL) 10 mg capsule Indications: Irritable bowel syndrome with diarrhea Take 1 capsule by mouth before meals and at bedtime. 60 capsule 3 05/14/2017 12/04/2022 Discontinued (Course of therapy completed) Comment on above: Take [address] [facility] before meals and at bedtime. drospirenone 3 mg / ethinyl estradiol 0.03 mg oral tablet (20 sources) Progestin, Estrogen Start: 08-27-2018 End: 06-09-2019 take 3 tablets by mouth once daily Drospirenone-Ethin yl Estradiol (Suzy (28)) 3-0.03 mg tablet Discontinued 1 {tbl} PO DAILY 20 03August 27, 2018 12:00am June 09, 2019 12:28pm Start: 04-13-2018 End: 08-27-2018 take 1 tablet by mouth once daily Drospirenone-Ethinyl Estradiol Discontinued 1 TABLET PO DAILY April 13, 2018 4:45pm August 27, 2018 1:29pm Start: 04-13-2018 End: 08-27-2018 Drospirenone-Ethinyl Estradi ol 1 EACH tablet Discontinued 1 {tbl} PO DAILY April 13, 2018 1:00am August 27, 2018 1:29pm Start: 04-13-2018 End: 08-27-2018 take 1 tablet by mouth once daily Drospirenone-Ethinyl Estradiol Discontinued 1 TABLET PO DAILY April 13, 2018 12:00am August 27, 2018 12:29pm Start: 04-13-2018 End: 08-27-2018 take 1 tablet by mouth once daily Drospirenone-Ethinyl Estradiol Discontinued 1 TABLET PO DAILY April 13, 2018 1:00am August 27, 2018 1:29pm Start: 06-12-2017 End: 12-04-2022 take 1 tablet by mouth once daily Drospirenone-Ethinyl Estradiol 3-0.03 mg per tablet Indications: Irregular menstrual cycle , Encounter for initial prescription of contraceptive pills Take 1 tablet by mouth once daily. 1 Package 12 06/12/2017 12/04/2022 Discontinued (Course of therapy completed) Start: 06-12-2017 take 1 tablet by sweta th once daily Drospirenone-Ethinyl Estradiol 3-0.03 mg per tablet Indications: Irregular menstrual cycle , Encounter for initial prescription of contraceptive pills Take 1 tablet by mouth once daily. 1 Package 12 06/12/2017 Active Comment on above: Take 1 tablet by sweta th once daily. famotidine 20 mg oral tablet (19 sources) Histamine-2 Receptor Antagonist Start: 3 End: 4 take 20 mg by mouth once daily Pepcid Mg Discontinued 20 mg PO DAILY December 28, 2012 12:00am April 18, 2013 5:44pm fluconazole 150 mg oral tablet (20 sources) Azole Antifungal Start: 2 End: 3 Fluconazole 150 mg tablet Discontinued 150 mg PO .COMPLEX 2 0 April 10, 2022 11:59am August 20, 2022 2:52pm 150 mg PO now and repeat in 3 days Start: 09-12-2021 End: 11-12-2021 Fluconazole 150 mg tablet Discontinued 150 mg PO .COMPLEX 2 0 October 23, 2021 9:21am November 12, 2021 9:35am 150 mg PO take one po now and repeat in 3 days Start: 09-12-2021 End: 02-19-2022 take 1 tablet by mouth every other day Fluconazole 150 mg tablet Discontinued 150 mg PO .COMPLEX 3 0 November 12, 2021 9:34am February 19, 2022 11:52am 150 mg PO every other day X 3 doses. Start: 03-14-2020 End: 08-15-2021 Fluconazole 150 mg tablet Discontinued 150 mg PO .COMPLEX 2 1 February 19, 2021 9:01am August 15, 2021 9:28am 150 mg PO take one po now and repeat in 3 days Start: 08-31-2018 End: 06-09-2019 Fluconazole 150 mg tablet Discontinued 150 mg PO .COMPLEX 2 0 August 31, 2018 12:00am June 09, 2019 12:28pm 150 mg PO take one po now and repeat in 3 days fluticasone propionate 0.05 mg/actuat metered dose nasal spray (20 sources) Corticosteroid Start: 06-29-2021 End: 04-23-2023 Fluticasone Propionate 50 mcg/actuation spray,suspension Discontinued 2 NMA INTRANASAL DAILY 16 September 30, 2022 2:05pm April 23, 2023 3:48pm Asthma Unspecified asthma, uncomplicated Start: 06-29-2021 End: 04-23-2023 Fluticasone Propionate Activ e 2 SPRAY INTRANASAL DAILY April 23, 2023 3:48pm Start: 11-08-2015 take 1 puff(s) by in halation twice daily fluticasone (FLOVENT HFA) 110 mcg/actuation inhaler Indications: Wheezing Inhale 1 Puff as instructed twice daily. 1 Inhaler 5 11/08/2015 Active Comment on above: Inhale 1 Puff as ins tructed twice daily. 12 hr guaiFENesin 600 mg extended release oral tablet (10 sources) Start: 12-11-19 End: 12-05-19 23 take 2 tablets by mouth twice daily guaiFENesin (MUCINEX) 600 mg 12 hr tablet Take 2 tablets by mouth twice daily. 24 tablet 12/10/2020 12/04/2022 Discontinued (Course of therapy completed) Comment on above: Take 2 tablets by [facility] twice daily. hydrOXYzine hydrochloride 25 mg oral tablet (12 sources) Antihistamine Start: 03-07-20 End: 08-21-19 take 1 tablet by mouth three times daily as needed for anxiety Hydroxyzine Hcl 25 mg tablet Discontinued 25 mg PO THREE TIMES A DAY as needed for anxiety 20 0 March 07, 2022 1:00am August 20, 2022 2:52pm Inhalational Spacing Device (1 source) Start: 02-29-20 End: 02-29-20 Inhalational Spacing Device Indications: Wheezing 1 Device one time only for 1 dose. 1 Each 0 02/28/2022 02/28/2022 Comment on above: 1 Device one time on ly for 1 dose. ipratropium 0.5 mg-albuterol 2.5 mg/2.5 mL solution for nebulization (3 sources) Start: 05-12-19 End: 05-12-19 ipratropium 0.5 mg-albuterol 2.5 mg/2.5 mL solution for nebulization Discontinued 2.5 ML Continuous Nebulization ONCE 1 May 12, 2018 10:38am May 12, 2018 11:02am Iron (19 sources) Start: 12-29-19 End: 03-20-20 take 324 mg by mouth once daily Iron Discontinued 324 MG PO DAILY December 28, 2012 6:38am March 20, 2013 11:34pm Start: 12-28-2012 End: 03-20-2013 take 324 mg by mouth once daily Iron Discontinued 324 mg PO DAILY December 28, 2012 12:00am March 20, 2013 11:34pm Start: 12-28-2012 End: 03-20-2013 take 324 mg by mouth once daily Iron Discontinued 324 MG PO DAILY December 27, 2012 11:00pm March 20, 2013 10:34pm Start: 12-28-2012 End: 03-20-2013 take 324 mg by mouth once daily Iron Discontinued 324 MG PO DAILY December 28, 2012 12:00am March 20, 2013 11:34pm ketotifen 0.25 mg/ml ophthalmic solution (10 sources) Histamine-1 Receptor Inhibitor Start: 03-26-2017 End: 12-04-2022 ketotifen fumarate (ZADITOR) 0.025 % (0.035 %) ophthalmic solution 03/26/2017 12/04/2022 Discontinued (Course of therapy completed) levothyroxine sodium 0.075 mg oral tablet (10 sources) l-Thyroxine Start: 08-21-2022 End: 04-23-2023 take 1 tablet by mouth once daily Levothyroxine 75 mcg tablet Discontinued 75 ug PO DAILY 90 August 21, 2022 12:00am April 23, 2023 3:22pm On Hold: Order Changed medroxyPROGESTERone acetate 10 mg oral tablet (20 sources) Progestin Start: 10-29-2021 End: 11-08-2021 take 1 tablet by mouth once daily Medroxyprogesterone 10 mg tablet Discontinued 10 mg PO daily 10 10 October 29, 2021 12:00am November 07, 2021 12:00am November 08, 2021 12:03am Start: 03-02-2019 End: 06-25-2019 take 1 tablet by mouth once daily Medroxyprogesterone (Provera) 10 mg tablet Discontinued 10 mg PO DAILY 10 June 09, 2019 12:28pm June 25, 2019 1:20pm Start: 07-29-2018 End: 08-08-2018 take 1 tablet by mouth once daily Medroxyprogesterone 10 mg tablet Discontinued 10 mg PO daily 10 10 July 29, 2018 12:00am August 07, 2018 12:00am August 08, 2018 12:07am naproxen 500 mg oral tablet (20 sources) Nonsteroidal Anti-inflammatory Drug Start: 09-16-2023 End: 10-15-2023 take 1 tablet by mouth twice daily as needed for pain Naproxen (Naprosyn) 500 mg tablet Discontinued 500 mg PO TWICE A DAY as needed for pain October 11, 2023 12:00am October 15, 2023 1:46pm Start: 12-22-2021 End: 08-20-2022 take 1 tablet by mouth twice daily as needed Naproxen 500 mg tablet Discontinued 500 mg PO TWICE DAILY NEEDED December 22, 2021 12:00am August 20, 2022 2:51pm Start: 01-06-2020 End: 02-15-2020 take 1 tablet by mouth twice daily as needed for pain Naproxen 500 MG tablet Discontinued 500 mg PO TWICE DAILY NEEDED as needed for Pain 60 January 06, 2020 12:00am February 15, 2020 2:12pm NIFEdipine 10 mg oral capsule (19 sources) Dihydropyridine Calcium Channel Nicki Start: 12-10-2019 End: 12-12-2019 take 1 capsule by mouth every four hours Nifedipine 10 MG capsule Discontinued 10 mg PO Q4H 6 1 0 December 10, 2019 12:00am December 11, 2019 12:00am December 12, 2019 12:03am nitrofurantoin, macrocrystals 25 mg / nitrofurantoin, monohydrate 75 mg oral capsule (20 sources) Nitrofuran Antibacterial Start: 04-06-2024 End: 04-11-2024 take 1 capsule by mouth twice daily nitrofurantoin monohydrate and macrocrystal (MACROBID) 100 mg capsule Indications: Urinary frequency Take 1 capsule by mouth two times a day for 5 days. 10 capsule 04/06/2024 04/09/2024 Discontinued Start: 01-28-2023 End: 02-02-2023 take 1 capsule by mouth twice daily nitrofurantoin monohydrate and macrocrystal (MACROBID) 100 mg capsule Take 1 capsule by mouth two times a day for 5 days. 10 capsule 0 01/28/2023 02/02/2023 Active Start: 08-20-2022 End: 08-27-2022 take 1 capsule by mouth twice daily at mealtime Nitrofurantoin Monohyd/M-Cryst (Macrobid) 100 mg capsule Discontinued 100 mg PO TWICE A DAY 14 7 0 August 20, 2022 12:00am August 26, 2022 12:00am August 27, 2022 12:04am must administer with a meal/food Start: 04-16-2022 End: 04-23-2022 take 1 capsule by mouth every twelve hours at mealtime Nitrofurantoin Monohyd/M-Cryst 100 mg capsule Discontinued 1 NMA PO Q12H 14 7 0 April 16, 2022 1:00am April 22, 2022 1:00am April 23, 2022 1:05am administer with a meal/food; swallow whole; do not open, crush, dissolve , or chew Start: 03-02-2022 End: 03-09-2022 take 1 capsule by mouth twice daily at mealtime nitrofurantoin monohydrate and macrocrystal (MACROBID) 100 mg capsule Take 1 capsule by mouth twice daily with meals for 7 days. 14 capsule 0 03/02/2022 03/09/2022 Active Start: 12-10-2019 End: 12-17-2019 take 1 capsule by mouth every twelve hours at mealtime Nitrofurantoin Monohyd/M-Cryst (Macrobid) 100 mg capsule Discontinued 100 mg PO Q12H 14 7 0 December 10, 2019 12:00am December 16, 2019 12:00am December 17, 2019 12:03am must administer with a meal/food Start: 06-20-2019 End: 06-27-2019 take 1 capsule by mouth every twelve hours at mealtime Nitrofurantoin Monohyd/M-Cryst (Macrobid) 100 mg capsule Discontinued 1 NMA PO Q12H 14 7 0 June 20, 2019 12:00am June 26, 2019 12:00am June 27, 2019 12:01am administer with a meal/food; swallow whole; do not open, crush, dissolve , or chew Start: 10-07-2018 End: 10-14-2018 take 1 capsule by mouth twice daily at mealtime Nitrofurantoin Monohyd/M-Cryst (Macrobid) 100 mg capsule Discontinued 100 mg PO TWICE A DAY 14 7 0 October 07, 2018 12:00am October 13, 2018 12:00am October 14, 2018 12:06am must administer with a meal/food Comment on above: Take 1 capsule by [facility] twice daily with meals for 7 days. Take 1 capsule by [facility] two times a day for 5 days. pantoprazole 40 mg delayed release oral tablet (20 sources) Proton Pump Inhibitor Start: 4 End: 4 take 1 tablet by mouth once daily Pantoprazole 40 mg Tablet,Delayed Release (Dr/Ec) Discontinued 40 mg PO DAILY August 26, 2022 12:00am September 16, 2023 9:10pm take 1 tablet by mouth once ann y PROTONIX 40 MG PACK One tablet by mouth daily PANTOPRAZOLE SODIUM [id number] Flory Anders NP take 1 tablet by mouth once ann y PROTONIX 40 MG PACK One tablet by mouth daily PANTOPRAZOLE SODIUM [id number] Flory Anders NP Comment on above: Take 1 tablet by [facility] daily before breakfast. Take on empty stomach, 1/2 hr before meal. phentermine hydrochloride 37.5 mg oral tablet (20 sources) Sympathomimetic Amine Anorectic Start: 12-18-2023 End: 10-20-2024 Phentermine (Adipex-P) 37.5 mg tablet Discontinued 18.75 mg PO daily 16 0 June 10, 2024 8:01am June 30, 2024 4:01pm Body mass index (BMI) of 23.0 to 23.9 in adult Body mass index [BMI] 23.0-23.9, adult must administer 30 minutes before or 1-2 hours after breakfast Start: 12-02-2023 End: 02-13-2024 take 1 tablet by mouth three times daily 30 minutes before mealtime Phentermine (Lomaira) 8 mg tablet Discontinued 8 mg PO THREE TIMES A DAY 90 2 December 02, 2023 12:00am February 13, 2024 8:33am must administer 30 minutes before meals/food Start: 12-06-2022 End: 12-02-2023 take 1 tablet by mouth once daily 30 minutes after breakfast Phentermine (Adipex-P) 37.5 mg tablet Discontinued 37.5 mg PO DAILY 30 1 May 13, 2023 2:58pm June 17, 2023 2:34pm must administer 30 minutes before or 1-2 hours after breakfast Comment on above: Take 37.5 mg by mout h daily before breakfast. potassium chloride 20 meq extended release oral tablet (19 sources) Start: 1 End: 2 take 2 tablets by mouth once daily Potassium Chloride (K-Tab) 20 mEq tablet extended release Discontinued 40 meq PO DAILY 8 4 0 October 27, 2020 12:00am August 15, 2021 9:28am [id number]-Aiwi-Iwvpz Acid ( 19) 29 mg iron- 1 mg tablet,chewable (20 sources) Start: 0 End: 2 [id number]-Njnc-Yrnaq Acid ( 19) 29 mg iron- 1 mg tablet,chewable Discontinued 1 {tbl} PO DAILY January 04, 2020 7:24am August 15, 2021 9:28am Start: 01-04-2020 End: 08-15-2021 Yx322-Bprw-Vcoxo Ac id ( 19) 29 mg iron- 1 mg tablet,chewable Discontinued 1 {tbl} PO DAILY January 04, 2020 7:24am August 15, 2021 9:28am Start: 01-04-2020 End: 08-15-2021 take 1 tablet by mouth once daily Ss784-Qpww-Hxldb Acid ( 19) 29 mg iron- 1 mg tablet,chewable Discontinued 1 TABLET PO DAILY January 04, 2020 6:24am August 15, 2021 8:28am Start: 01-04-2020 End: 08-15-2021 take 1 tablet by mouth once daily Sa268-Jqzv-Thwhm Acid ( 19) 29 mg iron- 1 mg tablet,chewable Discontinued 1 TABLET PO DAILY January 04, 2020 7:24am August 15, 2021 9:28am Start: 01-04-2020 take 1 tablet by sweta th once daily Cq602-Ktlv-Qmcyo Acid ( 19) 29 mg iron- 1 mg tablet,chewable Active 1 TABLET PO DAILY January 04, 2020 7:24am Start: 06-18-2019 End: 01-04-2020 Lb163-Jwdo-Vfwji Ac id ( 19) 29 mg iron- 1 mg tablet,chewable Discontinued 1 {tbl} PO DAILY 22 03June 18, 2019 12:00am January 04, 2020 7:24am Start: 06-18-2019 End: 01-04-2020 Fl329-Nope-Ubdba Ac id ( 19) 29 mg iron- 1 mg tablet,chewable Discontinued 1 {tbl} PO DAILY June 18, 2019 12:00am January 04, 2020 7:24am vitamin no.115-iron 29 mg-folic acid 1 mg chewable tablet (15 sources) Start: 06-18-2019 End: 01-04-2020 take 1 tablet by mouth once daily vitamin no.115-iron 29 mg-folic acid 1 mg chewable tablet Discontinued 1 TABLET PO DAILY June 18, 2019 3:54pm January 04, 2020 7:24am Start: 06-18-2019 End: 01-04-2020 take 1 tablet by mouth once daily vitamin no.115-iron 29 mg-folic acid 1 mg chewable tablet Discontinued 1 TABLET PO DAILY June 17, 2019 11:00pm January 04, 2020 6:24am Start: 06-18-2019 End: 01-04-2020 take 1 tablet by mouth once daily vitamin no.115-iron 29 mg-folic acid 1 mg chewable tablet Discontinued 1 TABLET PO DAILY June 18, 2019 12:00am January 04, 2020 7:24am rho(d) immune globulin, human 1500 unt prefilled syringe (3 sources) Human Immunoglobulin G Start: 11-11-2019 End: 11-11-2019 inject 1500 [IU] by intramuscular injection once RhoGAM Ultra-Filtered PLUS (rho(D) immune globulin) 1,500 unit (300 mcg) Discontinued 1500 UNIT IM ONCE 1 November 11, 2019 3:31pm November 11, 2019 3:55pm 60 actuat tiotropium 0.71971 mg/actuat inhalation spray (20 sources) Anticholinergic Start: 03-26-2022 End: 04-23-2023 take 1.25 ug by inhalation once daily Tiotropium [place] (Spiriva Respimat) 1.25 mcg/actuation mist Discontinued 2 NMA INHALATION DAILY 4 September 30, 2022 2:06pm April 23, 2023 3:48pm Start: 03-26-2022 End: 04-23-2023 take 1 puff(s) by inhalation once daily Tiotropium [place] (Spiriva Respimat) 1.25 mcg/actuation mist Active 2 PUFF INHALATION DAILY April 23, 2023 3:48pm Comment on above: inhale 2 (TWO) puffs BY MOUTH EVERY DAY topiramate 50 mg oral tablet (19 sources) Start: 06-17-2023 End: 09-28-2024 take 0.5 tablet by mouth twice daily before breakfast, then take 1 tablet by mouth twice daily Topiramate 50 mg tablet Discontinued 50 mg PO TWICE A DAY 60 February 13, 2024 8:31am September 28, 2024 2:42pm take before breakfast and before dinner, take 1/2 tab BID x two weeks then full tab BID Comment on above: take 50 mg orally tw ice a day; take before breakfast and before dinner, take ONE-HALF tab TWICE DAILY TIME two weeks then full tab TWICE DAILY Problems Active Problems Problem Classification Problem Date Documented Date Episodic/Chronic Abdominal pain (13 sources) Epigastric pain; Translations: [Epigastric pain] Onset: 8 Resolved: 2 07-12-2011 Episodic Administrative/soci al admission (3 sources) Repeated prescription; Translations: [Encounter for issue of repeat prescription] 09-02-2024 Episodic Anxiety disorders (20 sources) Panic disorder with agoraphobia; Translations: [Agoraphobia with panic disorder] Onset: 6 Resolved: 3 11-17-2006 Chronic Comment on above: encouraged counselin g, celexa 40 daily Asthma (20 sources) Exacerbation of asthma; Translations: [Unspecified asthma with (acute) exacerbation] Chronic Cancer of cervix (4 sources) Atypical squamous cells of undetermined significance on cervical Papanicolaou smear; Translations: [Atypical squamous cells of undetermined significance on cytologic smear of cervix (ASC-US)] 10-22-2023 Episodic Comment on above: Rpt pap in 1 yr Cardiac dysrhythmias (19 sources) Palpitations; Translations: [Palpitations] 03-07-2022 Episodic Diabetes mellitus without complication (20 sources) Prediabetes; Translations: [Prediabetes] 04-30-2022 Episodic Comment on above: s/p over 30% weight loss Diseases of mouth; excluding dental (1 source) Painful mouth; Translations: [Other lesions of oral mucosa] 05-24-2023 Episodic Disorders of teeth and jaw (20 sources) Infection of tooth; Translations: [Periapical abscess without sinus] 12-30-2021 Episodic Early or threatened labor (19 sources) Threatened premature labor - not delivered ; Translations: [False labor before 37 completed weeks of gestation, unspecified trimester] 12-29-2019 Episodic Comment on above: Admitted 12/08-12/09 f or painful contractions. Given BMZx2. Did not make change past 1cm. Esophageal disorders (20 sources) Gastroesophageal reflux disease; Translations: [Gastro-esophageal reflux disease without esophagitis] Onset: 7 06-12-2006 Chronic Fluid and electrolyte disorders (20 sources) Hypokalemia; Translations: [Hypokalemia] Onset: 5 10-27-2020 Episodic Fracture of lower limb (1 source) Closed fracture of phalanx of foot; Translations: [Unspecified fracture of right toe(s), initial encounter for closed fracture] Episodic Genitourinary symptoms and ill-defined conditions (20 sources) Female stress incontinence; Translations: [Stress incontinence (female) (male)] Chronic Comment on above: juanjose rowley Genitourinary symptoms and ill-defined conditions (20 sources) Urgent desire to urinate; Translations: [Urgency of urination] Episodic Immunizations and screening for infectious disease (20 sources) Contact with or exposure to other viral diseases; Translations: [Exposure to COVID-19 virus] 04-23-2022 Episodic Inflammation; infection of eye (except that caused by tuberculosis or sexually transmitteddisease) (1 source) Acute conjunctivitis of left eye; Translations: [Unspecified acute conjunctivitis, left eye] 06-23-2024 Episodic Inflammatory diseases of female pelvic organs (12 sources) Vaginitis; Translations: [Acute vaginitis] 04-18-2022 Episodic Menstrual disorders (18 sources) Irregular periods; Translations: [Irregular menstruation, unspecified] Chronic Comment on above: call if no menses X 3 months Miscellaneous mental health disorders (19 sources) depression; Translations: [ depression] 04-17-2021 Episodic Mood disorders (20 sources) Depressive disorder; Translations: [Other specified depressive episodes] Onset: 0 03-19-2021 Chronic Nonmalignant breast conditions (19 sources) Acute mastitis; Translations: [Mastitis without abscess] 06-25-2019 Episodic Open wounds of extremities (19 sources) Avulsion of skin; Translations: [Unspecified open wound of left hand, initial encounter] 06-25-2019 Episodic Other complications of (19 sources) Swelling of lower limb; Translations: [Gestational edema, unspecified trimester] 12-09-2019 Episodic Comment on above: Significant leg swel ling and heaviness R>L. Multiple varicosities on right side. LE dopplers ordered. Compression stockings ordered. Other female genital disorders (4 sources) Dyspareunia; Translations: [Unspecified dyspareunia] 10-27-2023 Chronic Other female genital disorders (1 source) Unspecified dyspareunia; Translations: [Unspecified dyspareunia] Onset: 4 Chronic Other female genital disorders (20 sources) History of premature labor; Translations: [Personal history of pre-term labor] Onset: 3 Resolved: 8 12-09-2019 Episodic Other injuries and conditions due to external causes (1 source) Injury of toe of right foot; Translations: [Unspecified injury of right foot, initial encounter] Episodic Other injuries and conditions due to external causes (2 sources) Injury of finger; Translations: [Unspecified injury of right wrist, hand and finger(s), initial encounter] 11-18-2022 Episodic Other injuries and conditions due to external causes (3 sources) Injury of finger of right hand; Translations: [Unspecified injury of right wrist, hand and finger(s), subsequent encounter] 11-28-2022 Episodic Other lower respiratory disease (1 source) Wheezing; Translations: [Wheezing] Episodic Other lower respiratory disease (8 sources) H/O: asthma; Translations: [Personal history of other diseases of the respiratory system] 10-07-2022 Episodic Other nutritional; endocrine; and metabolic disorders (16 sources) Body mass index 30+ - obesity; Translations: [Body mass index (BMI) 33.0-33.9, adult] 08-15-2021 Chronic Other nutritional; endocrine; and metabolic disorders (3 sources) Body mass index (BMI) 33.0-33.9, adult; Translations: [Body Mass Index 33.0-33.9, adult] Chronic Other nutritional; endocrine; and metabolic disorders (17 sources) Obesity; Translations: [Obesity, unspecified] 03-26-2022 Chronic Comment on above: NATHEN06/13 with PC P; SW for our office. 167 lbs 11/2022. Nutrition plan: reviewed EEP Balanced calorie restricted 0232-1614 nutritional plan. 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 Medication plan: insurance did not cover mendeliaira; still taking Phen. 18.75. Labs recently with elevated TSH. Will hold phent. until recheck of thyroid; topamax 50 BID. She is consistently taking once a day; forgets to take in the afternoon; take consistently to help with cravings. PRN control- sterilizationBehavior intervention: recommend daily journal of food intake with electronic methods.Exercise: Steps at work; Tracks steps on phone--10,000 steps on work days. Works 7 days a week recently. NEAT activity NATHEN- 215 06/13 with [employer] P; SW for our office. 167 lbs 11/2022Nutrition plan: reviewed EEP Balanced calorie restricted 6634-4305 nutritional plan. 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 Medication plan: insurance did not cover lomaira; restart taking Phen. 18.75; Consider restart of topiramate in 4 weeks. PRN control- sterilizationBehavior intervention: recommend daily journal of food intake with electronic methods.Exercise: Steps at work; Tracks steps on phone--10,000 steps on work days. Works 7 days a week recently. NEAT activity. Continue to increase her steps. SW- 215 06/13 with LYSSA Trujillo; NATHEN for our office. Nutrition plan: reviewed EEP Balanced calorie restricted 8723-2234 nutritional plan. ordered railroad watchman consult--would like to see railroad watchman again--referral placed--will schedule when readyMedication plan: (insurance did not cover lomaira); restart taking Phen. 18.75; Consider restart of topiramate in 4 weeks. PRN control- sterilizationBehavior intervention: recommend daily journal of food intake with electronic methods.Exercise: Steps at work; Tracks steps on phone--10,000 steps on work days. Works 7 days a week recently. [employer] activity. Continue to increase her steps. Other nutritional; endocrine; and metabolic disorders (6 sources) Obesity, unspecified; Translations: [Obesity, unspecified] Onset: 5 03-26-2022 Chronic Other nutritional; endocrine; and metabolic disorders (11 sources) Overweight in adulthood with body mass index of 25 or more but less than 30; Translations: [Body mass index (BMI) 26.0-26.9, adult] 12-06-2022 Episodic Other nutritional; endocrine; and metabolic disorders (2 sources) Body mass index (BMI) 26.0-26.9, adult; Translations: [Body Mass Index 26.0-26.9, adult] 12-06-2022 Episodic Other nutritional; endocrine; and metabolic disorders (2 sources) Body mass index (BMI) 25.0-25.9, adult; Translations: [Body Mass Index 25.0-25.9, adult] 04-11-2023 Episodic Other screening for suspected conditions (not mental disorders or infectious disease) (14 sources) Thyroid function tests abnormal; Translations: [Abnormal results of thyroid function studies] Onset: 5 04-30-2022 Episodic Other skin disorders (16 sources) Loss of hair; Translations: [Nonscarring hair loss, unspecified] 08-15-2021 Episodic Other skin disorders (2 sources) Nonscarring hair loss, unspecified; Translations: [Alopecia, unspecified] Episodic Other upper respiratory disease (20 sources) Allergic rhinitis; Translations: [Allergic rhinitis, unspecified] Onset: 7 11-17-2006 Chronic Other upper respiratory infections (20 sources) Pharyngitis; Translations: [Acute pharyngitis, unspecified] Episodic Residual codes; unclassified (8 sources) Body mass index 20-24 - normal; Translations: [Body mass index (BMI) 23.0-23.9, adult] 04-28-2024 Episodic Skin and subcutaneous tissue infections (1 source) Cellulitis of skin; Translations: [Cellulitis, unspecified] 12-02-2023 Episodic Spondylosis; intervertebral disc disorders; other back problems (4 sources) Neck pain; Translations: [Cervicalgia] 10-19-2023 Episodic Thyroid disorders (20 sources) Goiter; Translations: [Nontoxic goiter, unspecified] Onset: Chronic Comment on above: labs ordered Urinary tract infections (4 sources) Urinary tract infection, site not specified; Translations: [Urinary tract infection, site not specified] 08-20-2022 Episodic Viral infection (20 sources) Viral disease; Translations: [Viral infection, unspecified] Onset: 8 Episodic Past or Other Problems Problem Classification Problem Date Documented Date Episodic/Chronic Abdominal hernia (20 sources) Inguinal hernia; Translations: [Unilateral inguinal hernia, without obstruction or gangrene, not specified as recurrent] Onset: 10-27-2012 10-27-2012 Episodic Allergic reactions (8 sources) Allergy to seafood; Translations: [Allergy to seafood] Onset: 12-16-2006 Resolved: 07-06-2012 07-06-2012 Episodic Biliary tract disease (8 sources) Calculus of gallbladder with cholecystitis; Translations: [Calculus of gallbladder with chronic cholecystitis without obstruction] Onset: 04-13-2007 Resolved: 07-12-2011 07-12-2011 Episodic Deficiency and other anemia (8 sources) Iron deficiency anemia; Translations: [Iron deficiency anemia, unspecified] Onset: 04-15-2007 Resolved: 07-12-2011 07-12-2011 Episodic Gastritis and duodenitis (8 sources) Acute gastritis; Translations: [Acute gastritis without bleeding] Onset: 05-22-2007 Resolved: 08-28-2011 08-28-2011 Episodic Hemorrhage during ; abruptio placenta; placenta previa (8 sources) Hemorrhage in early , unspecified; Translations: [Unspecified hemorrhage in early , antepartum condition or complication] Onset: 05-25-2012 Resolved: 07-06-2012 03-19-2021 Episodic Malaise and fatigue (4 sources) Malaise and fatigue; Translations: [Other fatigue] Onset: 07-23-2016 07-23-2016 Episodic Miscellaneous mental health disorders (8 sources) Eating disorder; Translations: [Eating disorder, unspecified] Onset: 03-27-2007 Resolved: 07-12-2011 07-12-2011 Chronic Other complications of (8 sources) Supervision of other high risk pregnancies, unspecified trimester; Translations: [Supervision of other high-risk ] Onset: 08-13-2006 Resolved: 01-04-2010 01-04-2010 Episodic Other complications of (16 sources) RhD negative; Translations: [Other specified related conditions, unspecified trimester] Onset: 08-07-2011 Resolved: 06-12-2017 04-10-2012 Episodic Other complications of (8 sources) Urinary tract infection in ; Translations: [Unspecified infection of urinary tract in , unspecified trimester] Onset: 10-18-2011 Resolved: 04-10-2012 04-10-2012 Episodic Other complications of (8 sources) Vomiting of , unspecified; Translations: [Unspecified vomiting of , unspecified as to episode of care or not applicable] Onset: 05-25-2012 Resolved: 07-06-2012 03-19-2021 Episodic Other complications of (8 sources) History of hemorrhage; Translations: [Supervision of with other poor reproductive or obstetric history, unspecified trimester] Onset: 05-25-2012 Resolved: 06-12-2017 03-19-2021 Episodic Other lower respiratory disease (9 sources) Cough; Translations: [Acute cough] Onset: 07-25-2006 Resolved: 07-12-2011 Episodic Other nervous system disorders (8 sources) Carpal tunnel syndrome of right wrist; Translations: [Carpal tunnel syndrome, right upper limb] Onset: 01-04-2010 Resolved: 07-12-2011 07-12-2011 Chronic Other non-traumatic joint disorders (8 sources) Pain in lower limb; Translations: [Pain in unspecified knee] Onset: 11-17-2006 Resolved: 07-12-2011 07-12-2011 Episodic Other and delivery including normal (16 sources) Normal ; Translations: [Encounter for supervision of other normal , unspecified trimester] Onset: 01-21-2006 Resolved: 04-10-2012 01-04-2010 Episodic Residual codes; unclassified (20 sources) FH: Congenital anomaly; Translations: [Family history of other congenital malformations, deformations and chromosomal abnormalities] Onset: 05-25-2012 03-19-2021 Episodic Residual codes; unclassified (8 sources) Family history of cleft palate; Translations: [Family history of other congenital malformations, deformations and chromosomal abnormalities] Onset: 08-07-2011 Resolved: 07-06-2012 03-19-2021 Episodic Varicose veins of lower extremity (20 sources) Venous varices; Translations: [Asymptomatic varicose veins of unspecified lower extremity] Onset: 05-25-2012 03-19-2021 Episodic Results Test Name Value Interpretation Reference Range Facility Gun [facility]itter Office Visit Reporton 09-28-2024 Gun [facility] Office Visit Report [facility] [address], [address] [place] [address] OFFICE VISIT Date of Service: 09/28/24 MR#: [id number] Acct: [id number] Name: CARMELITAJACLYN GRACIAN Rep #: [id number] : 1980 Provider: SONIYA Oh Age/Sex: 43/F Location: [facility] [place] Status: Signed Intake Vital Signs 09/02/24 14:18 09/28/24 14:25 09/28/24 14:42 Height 5 ft 7 in 5 ft 7 in 5 ft 7 in Weight: 161 lb 8 oz BMI 25.2 BP 117/79 Pulse 88 Intake Visit 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: 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 Is patient in pain?: No Allergies ampicillin Allergy (Verified 09/28/24 14:24) Itching Fish Containing Products Allergy (Verified 09/28/24 14:24) Shortness of breath Penicillins (PCN) Allergy (Verified 09/28/24 14:24) Shortness of breath clindamycin Adverse Reaction (Verified 09/28/24 14:24) Pain in joints Medications ???Medication ???Instructions ???Recorded ???Confirmed ???Type albuterol sulfate 90 mcg/actuation 2 puff inhalation Q4H PRN 09/28/24 Rx aerosol inhaler shortness of breath or wheezing #1 ea budesonide-formoterol HFA 160 2 puff inhalation BID #10.2 grams 04/23/23 09/28/24 Rx mcg-4.5 mcg/actuation aerosol inhaler (Symbicort) cetirizine 10 mg capsule 10 mg PO HS #90 caps 04/23/2311/15 Rx epinephrine 0.3 mg/0.3 mL 0.3 ml IM PRN as needed for 09/28/24 History injection, auto-injector allergic reaction fluticasone propionate 50 2 spray intranasal DAILY #16 grams 04/23/23 09/28/24 Rx mcg/actuation nasal spray,suspension spacer #1 ea 04/23/23 09/28/24 Rx tiotropium bromide 1.25 2 puff inhalation DAILY #4 grams 0 04/23/23 09/28/24 Rx mcg/actuation mist for inhalation (Spiriva Respimat) lorazepam 1 mg tablet (Ativan) 1 mg PO TID PRN anxiety #10 tabs 0 09/02/24 09/28/24 Rx citalopram 40 mg tablet 40 mg PO DAILY depression #90 tabs 09/28/24 09/28/24 Rx phentermine 37.5 mg tablet 18.75 mg (1/2 x 37.5 mg) PO QDAY 0 09/28/24 09/28/24 Rx (Adipex-P) #16 tabs Last Menstrual Period: 04/26/24 Zika: Zika virus screening: Negative : No Have you fallen in the past year?: No PFSH PFSH Medical History Wears contact lenses MRSA infection Thyroid disease Bladder disease Anemia History of hiatal hernia History of IBS Gastric reflux Former smoker History of stress test History of echocardiogram Thyroid nodule Abnormal results of thyroid function studies Prediabetes Anxiety depression Asthma GERD (gastroesophageal reflux disease) Anxiety and depression Surgical History History of tubal ligation Hx of cholecystectomy Hx of appendectomy Family History Mother ADALBERTO III (cervical intraepithelial neoplasia grade III) with severe dysplasia Diabetes Thyroid disorder Grandmother Diabetes Thyroid disorder Other CVA (cerebral vascular accident) Kidney disease Social History adopted: No household members: family housing: house number of children: 6 current occupational status: employed current occupation: [employer] pets and animals: No history of recent travel: No Smoking Status: Former smoker second hand exposure: No alcohol intake: never substance use type: does not use caffeine: No what type of physical activity do you participate in: walking, bicycling and weight training frequency: 3-4 times per week seatbelt use: always do you feel safe at home: Yes additional social history: Boyfriend- Chaz History 6 Elective abortions Hx Para 6 Spontaneous abortions Hx # Term Pregnancies Ectopic pregnancies Hx # Pregnancies Multiple births # of living children 6 Past Pregnancies Del. Date Name GA/Weeks Outcome Route Bth Weight Gen Labor Lgth Anesthesia Del Locatn Provider FOB Unknown 2001- Guillermo 38 live - full term 8lbs 1oz Male none [employer] Bellow Unknown 2004 39 live - full term 7lbs 4oz Female epidural [employer] AISSATOU Unknown 39 live - full term 7LBS 14OZ Female epidural [facility] JOSÉ MANUEL Unknown 37 live - full term 8LBS 7OZ Male epidural [employer] RAMESH Unknown 38 live - full term 9LBS 12OZ Male none [employer] JOSÉ MANUEL 01/04/20 Sam 37 live - full term Female epidural [employer] SE M Delivery Date: Last Updated by: Vielka Conde labor at 32 weeks Delivery Date: Last Updated by: Vielka Conde NO COMPLICATIONS Delivery Date: Last Updated by: Vielka Conde IOL- OLIGO Delivery Date: Last Updated by: Vielka YE (more content not included)... Normal [facility] Absolute lymphocyte countOrd ered By: Remus Merry on 09-02-2024 Lymphocytes Auto (Unsp spec) [#/Vol] 2.40 10*3/uL 0.83-4.51 [facility] Absolute neutrophil countOrd ered By: [place] Ungkyle on 09-02-2024 Neutrophils (Bld) [#/Vol] 4.0 10*3/uL 2.0-7.7 [facility] Anion gap in Serum or Plasma [facility] on 09-02-2024 Anion gap [Moles/Vol] 11 mmol/L 5-[address] [facility] Automated lymphocyte count a s percentage of total leukocytesOrdered By: [facility] Sousa on 09-02-2024 Lymphocytes/100 WBC Auto (Unsp spec) 31.8 % - [facility] BUN/creatinine ratioOrdered By: [facility] Foundation[facility]yle on 09-02-2024 Urea nitrogen/Creatinine [Mass ratio] 18.5 mg/mg 10- [facility] Basic Metabolic Profile (BMP )on 09-02-2024 BUN/CRE 18.5 RATIO Normal - [facility] Comment on above: Performed By: #### L 501.9520, L100.0100, L500.2500 ####[facility] [address] [place], [address] Calcium [Mass/Vol] 9.0 mg/dL Normal 7.6-11.0 [facility] Comment on above: Performed By: #### L 501.9520, L100.0100, L500.2500 ####[facility] [address] [place], [address] Chloride [Moles/Vol] 105 mmol/L Normal 98-108 [facility] Comment on above: Performed By: #### L 501.9520, L100.0100, L500.2500 ####[facility] [address] [place], [address] CO2 [Moles/Vol] 22.2 mmol/L Normal 21.0-32.0 [facility] Comment on above: Performed By: #### L 501.9520, L100.0100, L500.2500 ####[facility] [address] [place], [address] Creatinine [Mass/Vol] 0.77 mg/dL Normal 0.70-1.[address] [facility] Comment on above: Performed By: #### L 501.9520, L100.0100, L500.2500 ####[facility] [address] [place], [address] ECRCL 101.09 ml/min Normal 50-250 [facility] Comment on above: Performed By: #### L 501.9520, L100.0100, L500.2500 ####[facility] [address] [place], [address] GAP 11 Normal 5-15 [facility] Comment on above: Performed By: #### L 501.9520, L100.0100, L500.2500 ####[facility] [address] [place], [address] GFR/1.73 sq M.predicted among non-blacks MDRD (S/P/Bld) [Vol rate/Area] 99 mL/min/{1.73_m2} Normal >60 [facility] Comment on above: Result Comment: mL/m in/1.73m2 CKD-EPI Creatinine Equation (2020) Performed By: #### L 501.9520, L100.0100, L500.2500 ####[facility] [address] [place], [address] Glucose [Mass/Vol] 100 mg/dL High 70-99 [facility] Comment on above: Performed By: #### L 501.9520, L100.0100, L500.2500 ####[facility] [address] [place], [address] Potassium [Moles/Vol] 3.4 mmol/L Normal 3.3-5.[address] [facility] Comment on above: Performed By: #### L 501.9520, L100.0100, L500.2500 ####[facility] [address] [place], [address] Sodium [Moles/Vol] 138 mmol/L Normal 133-145 [facility] Comment on above: Performed By: #### L 501.9520, L100.0100, L500.2500 ####[facility] [address] [place], [address] Urea nitrogen [Mass/Vol] 14 mg/dL Normal 4-19 [facility] Comment on above: Performed By: #### L 501.9520, L100.0100, L500.2500 ####[facility] [address] [place], [address] Basophil percentageOrdered B y: Remus Ungur on 09-02-2024 Basophils/100 WBC (Bld) 0.8 % 0-1 [facility] CBC W/Diff, Automatedon 08-22 Absolute Lymph 2.40 X10 3/uL Normal 0.83-4.51 [facility] Comment on above: Performed By: #### L 501.9520, L100.0100, L500.2500 ####[facility] [address] [place], [address] Absolute Neut 4.0 X10 3/uL Normal 2.0-7.7 [facility] Comment on above: Performed By: #### L 501.9520, L100.0100, L500.2500 ####[facility] [address] [place], [address] Basophils/100 WBC (Bld) 0.8 % Normal 0-1 [facility] Comment on above: Performed By: #### L 501.9520, L100.0100, L500.2500 ####[facility] [address] [place], [address] Eosinophils/100 WBC (Bld) 4.2 % Normal 0-5 [facility] Comment on above: Performed By: #### L 501.9520, L100.0100, L500.2500 ####[facility] [address] [place], [address] Erythrocyte distribution width (RBC) [Ratio] 12.3 % Normal 11.6-14.6 [facility] Comment on above: Performed By: #### L 501.9520, L100.0100, L500.2500 ####[facility] [address] [place], [address] Hematocrit (Bld) [Volume fraction] 38.9 % Normal 37-47 [facility] Comment on above: Performed By: #### L 501.9520, L100.0100, L500.2500 ####[facility] [address] [place], [address] Hemoglobin (Bld) [Mass/Vol] 13.0 g/dL Normal 12.0-15.0 [facility] Comment on above: Performed By: #### L 501.9520, L100.0100, L500.2500 ####[facility] [address] [place], [address] IG% 0.300 Normal 0.0-0.9 [facility] Comment on above: Result Comment: IG% - Immature Granulocytes (promyelocytes, myelocytes and metamyelocytes) > 1% indicates that a LEFT SHIFT is Present. Performed By: #### L 501.9520, L100.0100, L500.2500 ####[facility] [address] [place], [address] Lymphocytes/100 WBC (Bld) 31.8 % Normal 19-41 [facility] Comment on above: Performed By: #### L 501.9520, L100.0100, L500.2500 ####[facility] [address] [place], [address] MCH (RBC) [Entitic mass] 29.9 pg Normal 27.0-32.0 [facility] Comment on above: Performed By: #### L 501.9520, L100.0100, L500.2500 ####[facility] [address] [place], [address] MCHC (RBC) [Mass/Vol] 33.4 g/dL Normal 32-[address] [facility] Comment on above: Performed By: #### L 501.9520, L100.0100, L500.2500 ####[facility] [address] [place], [address] MCV (RBC) [Entitic vol] 89.4 fL Normal 81-99 [facility] Comment on above: Performed By: #### L 501.9520, L100.0100, L500.2500 ####[facility] [address] [place], [address] Monocytes/100 WBC (Bld) 10.2 % High 0-10 [facility] Comment on above: Performed By: #### L 501.9520, L100.0100, L500.2500 ####[facility] [address] [place], [address] Neutrophils/100 WBC (Bld) 52.7 % Normal 47-70 [facility] Comment on above: Performed By: #### L 501.9520, L100.0100, L500.2500 ####[facility] [address] [place], [address] Nucleated RBC (Bld) [#/Vol] 0 10*3/uL Normal 0-5 [facility] Comment on above: Performed By: #### L 501.9520, L100.0100, L500.2500 ####[facility] [address] [place], [address] Platelet mean volume (Bld) [Entitic vol] 8.5 fL Normal 6.2-12.0 [facility] Comment on above: Performed By: #### L 501.9520, L100.0100, L500.2500 ####[facility] [address] [place], [address] Platelets (Bld) [#/Vol] 319 10*3/uL Normal 150-450 [facility] Comment on above: Performed By: #### L 501.9520, L100.0100, L500.2500 ####[facility] [address] [place], [address] RBC (Bld) [#/Vol] 4.35 10*6/uL Normal 4.2-5.4 [facility] Comment on above: Performed By: #### L 501.9520, L100.0100, L500.2500 ####[facility] [address] [place], [address] RDW SD 40.7 fl Normal 35.1-43.9 [facility] Comment on above: Performed By: #### L 501.9520, L100.0100, L500.2500 ####[facility] [address] [place], [address] WBC (Bld) [#/Vol] 7.6 10*3/uL Normal 4.4-11.0 [facility] Comment on above: Performed By: #### L 501.9520, L100.0100, L500.2500 ####[facility] [address] [place], [address] Carbon dioxide, total [Moles /volume] in Central venous bloodOrdered By: Joaquín Sousa on 09-02-2024 CO2 [Moles/Vol] 22.2 mmol/L 21.0-32.0 [facility] Chloride assayOrdered By: Lisa Sousa on 09-02-2024 Chloride [Moles/Vol] 105 mmol/L 98-108 [facility] Emergency Department Summary on 09-02-2024 Emergency Department Summary [facility] Medical Records Department [address] [place] [address] Emergency Department Summary 09/02/24 MR#: [id number] Acct: [id number] Name: JACLYN MAE Rep #: [id number] : 1980 43 From: Joaquín Sousa DO PCP: Care Physician,No Primary Status:REG ER Location: ED HPI HPI - Psych History of Present Illness Chief Complaint: Mental Health Detail of Chief Complaint: Anxiety and depression Informant: patient Narrative Narrative: Patient presents with complaint of feeling anxious and depressed because she has been without her medication for about a month. Patient states her doctor retired and has not established with a new physician. Over last 3 days she has been feeling anxious and shaky. Today she went to the dentist and could not tolerate the procedure and was just not acting like herself so she was advised to come in and get evaluated. Patient states that at times her hearts been fluttering and she states sometimes that was related to her thyroid being out of whack. She does not take thyroid medications. She denies feeling suicidal or homicidal. [facility] Medical History Wears contact lenses MRSA infection Thyroid disease Bladder disease Anemia History of hiatal hernia History of IBS Gastric reflux Former smoker History of stress test History of echocardiogram Thyroid nodule Abnormal results of thyroid function studies Prediabetes Anxiety depression Asthma GERD (gastroesophageal reflux disease) Anxiety and depression Home Medications ???Medication ???Instructions ???Recorded ???Last Taken ???Type citalopram 40 mg tablet 40 mg PO DAILY depression #90 tabs 08/15/21 Unknown Rx albuterol sulfate 90 mcg/actuation 2 puff inhalation Q4H PRN Unknown Rx aerosol inhaler shortness of breath or wheezing #1 ea budesonide-formoterol HFA 160 2 puff inhalation BID #10.2 grams 04/23/23 Unknown Rx mcg-4.5 mcg/actuation aerosol inhaler (Symbicort) cetirizine 10 mg capsule 10 mg PO HS #90 caps 04/23/23 Unkn own Rx epinephrine 0.3 mg/0.3 mL 0.3 ml IM PRN as needed for Unknown History injection, auto-injector allergic reaction fluticasone propionate 50 2 spray intranasal DAILY #16 grams 04/23/23 Unknown Rx mcg/actuation nasal spray,suspension spacer #1 ea 04/23/23 Unknown Rx tiotropium bromide 1.25 2 puff inhalation DAILY #4 grams 0 04/23/23 Unknown Rx mcg/actuation mist for inhalation (Spiriva Respimat) topiramate 50 mg tablet 50 mg PO BID #60 tabs 02/13/24 Unk nown Rx phentermine 37.5 mg tablet 18.75 mg (1/2 x 37.5 mg) PO QDAY 0 06/30/24 Unknown Rx (Adipex-P) #16 tabs citalopram 40 mg tablet (Celexa) 40 mg PO DAILY #30 tabs 09/02/24 U nknown Rx lorazepam 1 mg tablet (Ativan) 1 mg PO TID PRN anxiety #10 tabs 0 09/02/24 Unknown Rx Allergy/AdvReac Type Severity Reaction Status Date / Time ampicillin Allergy Itching Verified 09/02/24 14:20 Fish Containing Products Allergy Shortness Verified 09/02/24 14:20 of breath Penicillins (PCN) Allergy Shortness Verified 09/02/24 14:20 of breath clindamycin AdvReac Pain in Verified 09/02/24 14:20 joints Family History Mother ADALBERTO III (cervical intraepithelial neoplasia grade III) with severe dysplasia Diabetes Thyroid disorder Grandmother Diabetes Thyroid disorder Other CVA (cerebral vascular accident) Kidney disease Surgical History History of tubal ligation Hx of cholecystectomy Hx of appendectomy Social History adopted: No household members: family housing: house number of children: 6 current occupational status: employed current occupation: [employer] pets and animals: No history of recent travel: No Smoking Status: Former smoker second hand exposure: No alcohol intake: never substance use type: does not use caffeine: No what type of physical activity do you participate in: walking, bicycling and weight training frequency: 3-4 times per week seatbelt use: always do you feel safe at home: Yes additional social history: Boyfriend- Chaz ROWE ROS ED Review of Systems ROS Unobtainable: other Constitutional Constitutional ED: Reports lethargy; Denies chills, fever(s), sweats or weight loss Eyes Eyes: Denies blurry vision, change in vision or diplopia ENT ENT ED: Denies rhinorrhea or sore throat Cardiovascular Cardiovascular: Reports palpitations and racing heartbeat; Denies chest pain or orthopnea Respiratory/Chest Respiratory/Chest: Denies cough, dyspnea, dyspnea on exertion, orthopnea or sputum Gastrointestinal Gastrointestinal: Denies abdominal pain, diarrh (more content not included)... Normal [facility] Eosinophil percentageOrdered By: Joaquín Sousa on 09-02-2024 Eosinophils/100 WBC (Bld) 4.2 % 0-5 [facility] Erythrocyte distribution wid th ratioOrdered By: Joaquín Sousa on 09-02-2024 Erythrocyte distribution width (RBC) [Ratio] 12.3 % 11.6-14.6 [facility] Erythrocyte distribution wid th standard deviationOrdered By: Joaquín Sousa on 09-02-2024 Erythrocyte distribution width (RBC) [Ratio] 40.7 fl 35.1-43.9 [facility] Glomerular filtration rate ( GFR) estimation/1.73 sq m using serum, plasma, or whole bOrdered By: Joaquín Sousa on 09-02-2024 GFR/1.73 sq M.predicted among non-blacks MDRD (S/P/Bld) [Vol rate/Area] 99 mL/min/{1.73_m2} >60 [facility] Comment on above: mL/min/1.73m2 CKD-EP I Creatinine Equation (2020) Hematocrit Auto (Bld) [Volum e fraction]Ordered By: Joaquín Sousa on 09-02-2024 Hematocrit (Bld) [Volume fraction] 38.9 % 37-47 [facility] Hemoglobin measurementOrdere d By: Joaquín Sousa on 09-02-2024 Hemoglobin (Bld) [Mass/Vol] 13.0 g/dL 12.0-15.0 [facility] Immature granulocytes/100 WB C Auto (Bld)Ordered By: Joaquín Sousa on 09-02-2024 Immature granulocytes/100 WBC (Bld) 0.300 % 0.0-0.9 [facility] Comment on above: IG% - Immature Granu locytes (promyelocytes, myelocytes and metamyelocytes) > 1% indicates that a LEFT SHIFT is Present. MCV (mean corpuscular volume ) determinationOrdered By: Joaquín Sousa on 09-02-2024 MCV (RBC) [Entitic vol] 89.4 fL 81-99 [facility] Mean corpuscular hemoglobin (MCH) determinationOrdered By: Joaquín Sousa on 09-02-2024 MCH (RBC) [Entitic mass] 29.9 pg 27.0-32.0 [facility] Mean corpuscular hemoglobin concentration (MCHC) determinationOrdered By: Joaquín Sousa on 09-02-2024 MCHC (RBC) [Mass/Vol] 33.4 g/dL 32-[address] [facility] Mean platelet volume determi nationOrdered By: Joaquín Sousa on 09-02-2024 Platelet mean volume (Bld) [Entitic vol] 8.5 fL 6.2-12.0 [facility] Monocyte percentageOrdered B y: Joaquín Sousa on 09-02-2024 Monocytes/100 WBC (Bld) 10.2 % High 0-10 [facility] Neutrophil percentageOrdered By: Joaquín Sousa on 09-02-2024 Neutrophils/100 WBC (Bld) 52.7 % 47-70 [facility] Nucleated red blood cell per centageOrdered By: Joaquín Sousa on 09-02-2024 Nucleated RBC/100 WBC (Bld) [Ratio] 0 % 0-5 [facility] Platelet countOrdered By: Lisa Sousa on 09-02-2024 Platelets (Bld) [#/Vol] 319 10*3/uL 150-450 [facility] Potassium measurement (mass/ volume)Ordered By: Joaquín Sousa on 09-02-2024 Potassium (Unsp spec) [Mass/Vol] 3.4 mmol/L 3.3-5.1 [facility] RBC Auto (Bld) [#/Vol]Ordere d By: Joaquín Sousa on 09-02-2024 RBC (Bld) [#/Vol] 4.35 10*6/uL 4.2-5.4 [facility] Serum creatinine measurement (mass/volume)Ordered By: Joaquín Sousa on 09-02-2024 Creatinine [Mass/Vol] 0.77 mg/dL 0.70-1.[address] [facility] Serum glucose measurement (m ass/volume)Ordered By: Joaquín Sousa on 09-02-2024 Glucose [Mass/Vol] 100 mg/dL High 70-99 [facility] Serum or plasma calcium fredrick urement (mass/volume)Ordered By: Joaquín Sousa on 09-02-2024 Calcium [Mass/Vol] 9.0 mg/dL 7.6-11.0 [facility] Serum or plasma urea nitroge n measurement (mass/volume)Ordered By: Joaquín Sousa on 09-02-2024 Urea nitrogen [Mass/Vol] 14 mg/dL 4-19 [facility] Sodium levelOrdered By: Grace Sousa on 09-02-2024 Sodium [Moles/Vol] 138 mmol/L 133-145 [facility] TSH DL <= 0.005 mIU/L QnOrde red By: Joaquín Sousa on 09-02-2024 TSH Qn 3.000 uIU/mL 0.300-4.20 0 [facility] Thyroid Stim Hormone (TSH)on 09-02-2024 TSH 3.000 uIU/mL Normal 0.300-4.20 0 [facility] Comment on above: Performed By: #### L 501.9520, L100.0100, L500.2500 ####[facility] [address] [place], [place], [id number] White blood cell (WBC) count Ordered By: Joaquín Sousa on 09-02-2024 WBC (Bld) [#/Vol] 7.6 10*3/uL 4.4-11.0 [facility] Office Visit Reporton 2024 Office Visit Report 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 Required: No Is patient in pain?: No Allergies ampicillin Allergy (Verified 06/30/24 14:43) Itching Fish Containing Products Allergy (Verified 06/30/24 14:43) Shortness of breath Penicillins (PCN) Allergy (Verified 06/30/24 14:43) Shortness of breath clindamycin Adverse Reaction (Verified 06/30/24 14:43) Pain in joints Medications ???Medication ???Instructions ???Recorded ???Confirmed ???Type citalopram 40 mg tablet 40 mg PO DAILY depression #90 tabs 08/15/21 06/30/24 Rx albuterol sulfate 90 mcg/actuation 2 puff inhalation Q4H PRN 06/30/24 Rx aerosol inhaler shortness of breath or wheezing #1 ea budesonide-formoterol HFA 160 2 puff inhalation BID #10.2 grams 04/23/23 06/30/24 Rx mcg-4.5 mcg/actuation aerosol inhaler (Symbicort) cetirizine 10 mg capsule 10 mg PO HS #90 caps 04/23/23/12/16 Rx epinephrine 0.3 mg/0.3 mL 0.3 ml IM PRN as needed for 06/30/24 History injection, auto-injector allergic reaction fluticasone propionate 50 2 spray intranasal DAILY #16 grams 04/23/23 06/30/24 Rx mcg/actuation nasal spray,suspension spacer #1 ea 04/23/23 06/30/24 Rx tiotropium bromide 1.25 2 puff inhalation DAILY #4 grams 0 04/23/23 06/30/24 Rx mcg/actuation mist for inhalation (Spiriva Respimat) topiramate 50 mg tablet 50 mg PO BID #60 tabs 02/13/2412/16 Rx phentermine 37.5 mg tablet 18.75 mg (1/2 x 37.5 mg) PO QDAY 0 06/30/24 06/30/24 Rx (Adipex-P) #16 tabs Post menopausal: No Patient : No Have you fallen in the past year?: No Nurse's Note: Patient is here today for HR/BP/weight check. She was asking about taking 1/2 tablet of Adipex BID, she states this was how she took the medication at the beginning. She is struggling with night time eating. I spoke with CB who recommends keeping medications as is and will discuss changes at her next visit. She does need a refill of Adipex sent to [facility] in [place]. Questionnaires Weight Management Follow-Up What nutritional plan/diet are you following?: Watching sweets How are you tracking your food intake?: Not tracking On average, how many days a week are you recording your food intake?: 2 How many days a week are you staying within your recommended intake goals?: 2 What is your current weekly exercise?: Amount of steps during work On a scale of 1-10, how difficult is it to follow your current weight management plan?: 9 What are you struggling most with right now in following your weight loss plan?: Craving to eat at night Are there any changes we need to make to your current plan right now?: Unsure Side Effects: No Chest Pain, No Palpitations, No Increased Heart Rate, No Irregular Heart Rhythm, No Increased Blood Pressure, No Change in breathing patterns, No Kidney Stones, No Change in vision, No Insomnia, No Difficulty with memory/speech, No Numbness in hands/feet, No New onset severe fatigue, No Nausea/vomiting, No Constipation and No Depressed mood Are there any side effects interfering with quality of life enough you would want to stop medication?: No What's improved for you since losing weight and making your lifestyle change?: Joints don't hurt, increased energy Is there anything else we can help you with on your weight loss journey today?: Refer to architect naval to get a food plan set 06/30/24 1601 Date Xochilt Krish Wilson Signature: Date (if applicable) CC: Normal [facility] CNOVon 06-23-2024 CNOV Office Visit ([facility] ) JACLYN MAE ([id number]) 1980 F Date Time Provider Department 06/23/24 10:30 AM ALYSON MAJANO [facility] During your visit today, we recorded the following information about you: Temperature Pulse Respiration Blood pressure 97.5 degrees 77/minute 18/minute 122/80 Weight 70.9 kg Alyson Majano PA-C 06/23/2024 12:12 PM Signed This note was created using [employer]. Subjective Jaclyn Mae is a 43 year old female. Patient is a 43-year-old female who arrives for evaluation of 2 separate complaints. Patient reports intense redness and irritation to her left eye that is developed over the past 1 day. Patient does wear contact lenses and states that she is experiencing irritation and increased tearing to her left eye. Patient denies injury or foreign body other than the contact lens. Patient reports no matting or discharge to her left eye. Patient denies acute changes to her vision. Patient states that her right eye is asymptomatic. Patient also complains of increasing pain to her left mandibular first premolar that has been worsening for the past 2 weeks. Patient states that she did fracture part of the tooth and believes that it is now infected. Patient denies bleeding, serous appearing fluid to the tooth and gingiva. Patient does have a dentist but has not been evaluated for her tooth fracture and pain. Eye Problem Review of Systems HENT: Positive for dental problem. Eyes: Positive for discharge, redness and itching. Negative for photophobia, pain and visual disturbance. All other systems reviewed and are negative. Objective BP 122/80 Pulse 77 Temp 36.4 ?C (97.5 ?F) (Tympanic) Resp 18 Wt 70.9 kg (156 lb 4.9 oz) LMP 06/05/2021 SpO2 100% BMI 25.23 kg/m? Physical Exam Vitals and nursing note reviewed. Constitutional: Appearance: Normal appearance. She is normal weight. HENT: Head: Normocephalic and atraumatic. Right Ear: External ear normal. Left Ear: External ear normal. Nose: Nose normal. Mouth/Throat: Mouth: Mucous membranes are moist. Pharynx: Oropharynx is clear. Comments: Approximate 50% fracture of the left mandibular premolar is noted. Tooth fragment is black and there is no bleeding, serous or purulent fluid noted. Associated gingiva is clear and there is no evidence of abscess. There is no degree of soft tissue edema noted to the left face. Buccal mucosa is clear. No trismus is noted and the patient's speech is clear. Eyes: General: Right eye: No discharge. Left eye: No discharge. Extraocular Movements: Extraocular movements intact. Pupils: Pupils are equal, round, and reactive to light. Comments: Intense diffuse erythema and injection is noted to the left conjunctiva. No matting or discharge is noted to the left eye. Left superior and inferior eyelids are clear without erythema or edema. Left periorbital skin is clear without erythema or edema. Exam of the right conjunctiva, eyelids and periorbital skin is unremarkable. Pupils are equal, round and reactive to light and accommodation and the patient demonstrates full extraocular range of motion bilaterally. Visual acuity is intact as documented by the FIELD CONSULTANT. Cardiovascular: Rate and Rhythm: Normal rate. Pulses: Normal pulses. Pulmonary: Effort: Pulmonary effort is normal. Breath sounds: Normal breath sounds. Musculoskeletal: Cervical back: Normal range of motion and neck supple. Skin: General: Skin is warm and dry. Capillary Refill: Capillary refill takes less than 2 seconds. Neurological: General: No focal deficit present. Mental Status: She is alert and oriented to person, place, and time. Psychiatric: Mood and Affect: Mood normal. Behavior: Behavior normal. Thought Content: Thought content normal. Judgment: Judgment normal. Assessment and Plan Physical exam findings as noted above. Patient does have allergies to both penicillin and clindamycin, therefore she was provided with a prescription for doxycycline 100 mg. Patient also received a prescription for erythromycin 0.5% ophthalmic ointment and instructions for application were discussed. Patient verbalizes clear understanding of same. CLINICAL IMPRESSION: Dental Infection; Acute Conjunctivitis Left Eye ASSESSMENT/PLAN: 1. Acute conjunctivitis of left eye, unspecified acute conjunctivitis type - ICD9: 372.00, ICD10: H10.32 (primary diagnosis) - ERYTHROMYCIN 5 MG/GRAM (0.5 %) EYE OINTMENT 2. Dental infection - ICD9: 522.4, ICD10: K04.7 - DOXYCYCLINE HYCLATE 100 MG TABLET MDM Risk of Complications, Morbidity, and/or Mortality Presenting problems: low Diagnostic procedures: low Management options: ti Majano PA-C Allergies As of Date: 06/23/2024 Noted Allergy Reaction CLINDOMYCIN (CLINDAMYCIN) 07/10/2009 12 - Shortness of Breath PENICILLINS 11/30/2004 12 - Shortness of B (more content not included)... Normal [facility] Anion gap in Serum or Plasma Ordered By: Xochilt Rutherford on 05-29-2024 Anion gap [Moles/Vol] 11 mmol/L 5-[address] [facility] BUN/creatinine ratioOrdered By: Xochilt Rutherford on 05-29-2024 Urea nitrogen/Creatinine [Mass ratio] 17.0 mg/mg 10-20 [facility] Bilirubin, totalOrdered By: Xochilt Rutherford on 05-29-2024 Bilirubin [Mass/Vol] 0.21 mg/dL 0.00-1.30 [facility] Carbon dioxide, total [Moles /volume] in Central venous bloodOrdered By: Xochilt Rutherford on 05-29-2024 CO2 [Moles/Vol] 21.7 mmol/L 21.0-32.0 [facility] Chloride assayOrdered By: Joann Rutherford on 05-29-2024 Chloride [Moles/Vol] 108 mmol/L 98-108 [facility] Comprehensive Metabolic Prof ilon 05-29-2024 Albumin [Mass/Vol] 4.3 g/dL Normal 3.5-5.0 [facility] Comment on above: Performed By: #### L 500.4050 ####[facility] [address] [place], [address] Albumin/Globulin [Mass ratio] 1.5 {ratio} Normal 0.9-2.4 [facility] Comment on above: Performed By: #### L 500.4050 ####[facility] [address] [place], [address] ALK PHOS 80 U/L Normal 35-104 [facility] Comment on above: Performed By: #### L 500.4050 ####[facility] [address] [place], [address] ALT [Catalytic activity/Vol] 27 U/L Normal <=34 [facility] Comment on above: Performed By: #### L 500.4050 ####[facility] [address] [place], [address] AST [Catalytic activity/Vol] 24 U/L Normal <=31 [facility] Comment on above: Performed By: #### L 500.4050 ####[facility] [address] [place], [address] Bilirubin [Mass/Vol] 0.21 mg/dL Normal 0.00-1.30 [facility] Comment on above: Performed By: #### L 500.4050 ####[facility] [address] [place], [address] BUN/CRE 17.0 RATIO Normal 10-20 [facility] Comment on above: Performed By: #### L 500.4050 ####[facility] [address] [place], [address] Calcium [Mass/Vol] 8.8 mg/dL Normal 7.6-11.0 [facility] Comment on above: Performed By: #### L 500.4050 ####[facility] [address] [place], [address] Chloride [Moles/Vol] 108 mmol/L Normal 98-108 [facility] Comment on above: Performed By: #### L [id number] ####[facility] [address] [place], [address] CO2 [Moles/Vol] 21.7 mmol/L Normal 21.0-32.0 [facility] Comment on above: Performed By: #### L [id number] ####[facility] [address] [place], [address] Creatinine [Mass/Vol] 1.04 mg/dL Normal 0.70-1.[address] [facility] Comment on above: Performed By: #### L 500.4050 ####[facility] [address] [place], [address] GAP 11 Normal 5-15 [facility] Comment on above: Performed By: #### L 500.4050 ####[facility] [address] [place], [address] GFR/1.73 sq M.predicted among non-blacks MDRD (S/P/Bld) [Vol rate/Area] 69 mL/min/{1.73_m2} Normal >60 [facility] Comment on above: Result Comment: mL/m in/1.73m2 CKD-EPI Creatinine Equation (2020) Performed By: #### L 500.4050 ####[facility] [address] [place], [address] Globulin (S) [Mass/Vol] 2.8 g/dL Normal 2.2-4.2 [facility] Comment on above: Performed By: #### L 500.4050 ####[facility] [address] [place], [address] Glucose [Mass/Vol] 106 mg/dL High 70-99 [facility] Comment on above: Performed By: #### L 500.4050 ####[facility] [address] [place], [address] Potassium [Moles/Vol] 3.9 mmol/L Normal 3.3-5.[address] [facility] Comment on above: Performed By: #### L 500.4050 ####[facility] [address] [place], [address] Sodium [Moles/Vol] 141 mmol/L Normal 133-145 [facility] Comment on above: Performed By: #### L 500.4050 ####[facility] [address] [place], [address] T PROT 7.1 g/dL Normal 5.9-8.4 [facility] Comment on above: Performed By: #### L 500.4050 ####[facility] [address] [place], [address] Urea nitrogen [Mass/Vol] 18 mg/dL Normal 4-19 [facility] Comment on above: Performed By: #### L 500.4050 ####[facility] [address] [place], [address] GFR/1.73 sq M.predicted telma g non-blacks MDRD (S/P/Bld) [Vol rate/Area]Ordered By: Xochilt Rutherford on 05-29-2024 Estimated GFR (MDRD) Non-Af Amer 69 >60 [facility] Comment on above: mL/min/1.73m2 CKD-EP I Creatinine Equation (2020) Glomerular filtration rate ( GFR) estimation/1.73 sq m using serum, plasma, or whole bOrdered By: Xochilt Rutherford on 05-29-2024 GFR/1.73 sq M.predicted among non-blacks MDRD (S/P/Bld) [Vol rate/Area] 69 mL/min/{1.73_m2} >60 [facility] Comment on above: mL/min/1.73m2 CKD-EP I Creatinine Equation (2020) Laboratory - Chemistry and C hemistry - challengeOrdered By: Xochilt Rutherford on 05-29-2024 AST [Catalytic activity/Vol] 24 U/L <32 [facility] Potassium (Unsp spec) [Mass/ Vol]Ordered By: Xochilt Rutherford on 05-29-2024 Potassium [Moles/Vol] 3.9 mmol/L 3.3-5.[address] [facility] Potassium measurement (mass/ volume)Ordered By: Xochilt Rutherford on 05-29-2024 Potassium (Unsp spec) [Mass/Vol] 3.9 mmol/L 3.3-5.1 [facility] Serum creatinine measurement (mass/volume)Ordered By: Xochilt Rutherford on 05-29-2024 Creatinine [Mass/Vol] 1.04 mg/dL 0.70-1.[address] [facility] Serum globulin measurementOr dered By: Xochilt Rutherford on 05-29-2024 Globulin (S) [Mass/Vol] 2.8 g/dL 2.2-4.2 [facility] Serum glucose measurement (m ass/volume)Ordered By: Xochilt Rutherford on 05-29-2024 Glucose [Mass/Vol] 106 mg/dL High 70-99 [facility] Serum or plasma alanine graf otransferase (ALT) measurementOrdered By: Xochilt Rutherford on 05-29-2024 ALT [Catalytic activity/Vol] 27 U/L <35 [facility] Serum or plasma albumin fredrick urement (mass/volume)Ordered By: Xochilt Rutherford on 05-29-2024 Albumin [Mass/Vol] 4.3 g/dL 3.5-5.0 [facility] Serum or plasma albumin/glob ulin mass ratioOrdered By: Xochilt Rutherford 05-29-2024 Albumin/Globulin [Mass ratio] 1.5 {ratio} 0.9-2.4 [facility] Serum or plasma alkaline rony sphatase measurementOrdered By: Xochilt Rutherford on 05-29-2024 ALP [Catalytic activity/Vol] 80 U/L 35-104 [facility] Serum or plasma calcium fredrick urement (mass/volume)Ordered By: Xochilt Rutherford on 05-29-2024 Calcium [Mass/Vol] 8.8 mg/dL 7.6-11.0 [facility] Serum or plasma urea nitroge n measurement (mass/volume)Ordered By: Xochilt Rutherford on 05-29-2024 Urea nitrogen [Mass/Vol] 18 mg/dL 4-19 [facility] Sodium levelOrdered By: Ashleigh Rutherford on 05-29-2024 Sodium [Moles/Vol] 141 mmol/L 133-145 [facility] Total proteinOrdered By: Placido Rutherford on 05-29-2024 Protein [Mass/Vol] 7.1 g/dL 5.9-8.4 [facility] CNOVon 05-17-2024 CNOV Office Visit ([facility] ) JACLYN MAE ([id number]) 1980 F Date Time Provider Department 05/17/24 7:45 PM TESSA DEL CASTILLO [facility] During your visit today, we recorded the following information about you: Temperature Pulse Respiration Blood pressure 97.4 degrees 98/minute 16/minute 128/74 Weight 71.7 kg Tessa Del Castillo APRN.[employer] 05/17/2024 8:10 PM Signed Subjective Complaints of dental pain for a few days. Patient says it is staying the same. Patient denies any fever chills nausea vomiting or difficulty opening her jaw. Patient denies any other symptoms. The history is provided by the patient. No sign language teacher was used. Dental Problem Review of Systems Constitutional: Negative. Skin: Negative. Objective Physical Exam Constitutional: Appearance: Normal appearance. HENT: Mouth/Throat: Comments: Pain is in the area marked above. There is some mild redness and swelling. Patient does have significant dental caries. Patient is able to open her mouth completely. Uvula midline. No difficulty swallowing. Pulmonary: Effort: Pulmonary effort is normal. Neurological: Mental Status: She is alert. PAST MEDICAL HISTORY Diagnosis Date Abdominal pain, epigastric Acute gastritis without mention of hemorrhage Anemia Anxiety disorder in conditions classified elsewhere Chronic cholecystitis FRACTURE AGE 10 WRIST,FALL ON ICE GERD (gastroesophageal reflux disease) Helicobacter pylori (H. 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 [place] DILATION AND CURETTAGE DXAND/THER NONOBSTETRIC 2004 Dilation AND curettage, EGD TRANSORAL BIOPSY SINGLE/MULTIPLE 05/22/07 INSERT INTRAUTERINE DEVICE 11/2006 Mirena, Removed 05/17/2009 IUD INSERTION (FORMING MACHINE ADJUSTER DEPT)_*FL 05/17/2009 Paragard LAPS SURG CHOLECYSTECTOMY W/CHOLANGIOGRAPHY 04/08/08 ALLERGIES Clindomycin [Clindamycin] and Penicillins MEDICATIONS topiramate (TOPAMAX) 50 mg tablet take 50 mg orally twice a day; take before breakfast and before dinner, take ONE-HALF tab TWICE DAILY TIME two weeks then full tab TWICE DAILY SPIRIVA RESPIMAT 1.25 mcg/actuation inhaler inhale 2 (TWO) puffs BY MOUTH EVERY DAY montelukast (SINGULAIR) 10 mg tablet benzonatate (TESSALON PERLES) 100 mg capsule Take 2 capsules by mouth three times a day as needed. (Patient not taking: Reported on 05/17/2024) Phentermine HCl 37.5 mg tablet Take 37.5 mg by mouth daily before breakfast. diclofenac (VOLTAREN) 1 % topical gel Apply 2 g to affected area four times daily. albuterol HFA (PROVENTIL HFA, VENTOLIN HFA) 90 mcg/actuation inhaler Inhale 2 Puffs as instructed every 4 hours as needed for wheezing/shortness of breath. pantoprazole DR (PROTONIX) 40 mg tablet Take [...] Inhale 1 Puff as instructed twice daily. EPINEPHrine (EPIPEN) 0.3 mg/0.3 mL (1:1,000) atIn Inject intramuscularly. use as directed for allergic reaction. Seek emergent medical care immediately after use. FAMILY HISTORY Problem Relation Age of Onset Arthritis Father Hypertension Father Lipids Father Arthritis Maternal Grandmother Diabetes Maternal Grandmother Diabetes Maternal Grandfather Heart Paternal Grandmother Psychiatry Paternal Grandfather Diabetes Paternal Grandfather Prostate Cancer Paternal Grandfather Heart Paternal Uncle other (ADD) Daughter other (ADHD) Son Social History Tobacco Use Smoking status: Former Current packs/day: 0.00 Types: Cigarettes Quit date: 12/17/2005 Years since quittin.4 Smokeless tobacco: Never Tobacco comments: quit one year ago Substance Use Topics Alcohol use: Yes Comment: Seldom, NOT DURING Drug use: No ASSESSMENT/PLAN: 1. Pain, dental - ICD9: 525.9, ICD10: K08.89 - AZITHROMYCIN 250 MG TABLET Patient cannot take clindamycin. Patient is allergic to amoxicillin with shortness of breath so cannot tolerate Keflex. Best option is azithromycin even with medication interaction. Patient was educated about proper use of medication and supportive therapies. Patient was educated to monitor for signs of worsening. Patient was agreeable to this care plan. Tessa Del Castillo APRN.[employer] Allergies As of Date: 05/17/2024 Noted Allergy Reaction CLINDOMYCIN (CLINDAMYCIN) 07/10/2009 12 - Shortness of Breath PENICILLINS 11/30/2004 (more content not included)... Normal [facility] Thyroid Peroxidase ABon 02-0 -2024 THYR PEROX AB < 9 Normal 0-34 [facility] Comment on above: Result Comment: Perf ormed at: CB - [facility] [address] [id number] Sleeping Car Conductor: Madhu Carrion PhD, Phone: [phone] Performed By: #### L 143.9840, J889.2736, Y599.71248, L3300.9210, L501.8884, L100.0100 #### [facility] [address] [place], [address] Absolute neutrophil countOrd ered By: Xochilt Rutherford on 04-29-2024 Neutrophils (Bld) [#/Vol] 4.9 10*3/uL 2.0-7.7 [facility] Albumin to globulin ratioOrd ered By: Xochilt Rutherford on 04-29-2024 Albumin/Globulin [Mass ratio] 1.1 {ratio} 0.9-2.4 [facility] Basophil percentageOrdered B y: Xochilt Rutherford on 04-29-2024 Basophils/100 WBC (Bld) 1.0 % 0-1 [facility] Bilirubin, totalOrdered By: Xochilt Rutherford on 04-29-2024 Bilirubin [Mass/Vol] 0.30 mg/dL 0.20-1.00 [facility] Comment on above: For patients on eltr ombopag therapy, use of Dimension [place] TBIL is not recommended. Blood urea nitrogen (BUN)/cr eatinine ratioOrdered By: Xochilt Rutherford on 04-29-2024 Urea nitrogen/Creatinine [Mass ratio] 14.5 mg/mg 10-20 [facility] CBC W/Diff, Automatedon Absolute Lymph 2.89 X10 3/uL Normal 0.83-4.51 [facility] Comment on above: Performed By: #### L 506.0400, L500.4050, L501.34875, L3300.6900, L501.9520, L100.0100 #### [facility] [address] [place], [address] Absolute Neut 4.9 X10 3/uL Normal 2.0-7.7 [facility] Comment on above: Performed By: #### L 506.0400, L500.4050, L501.73099, L3300.6900, L501.9520, L100.0100 #### [facility] [address] [place], [address] Basophils/100 WBC (Bld) 1.0 % Normal 0-1 [facility] Comment on above: Performed By: #### L 506.0400, L500.4050, L501.54422, L3300.6900, L501.9520, L100.0100 #### [facility] [address] [place], [address] Eosinophils/100 WBC (Bld) 3.7 % Normal 0-5 [facility] Comment on above: Performed By: #### L 506.0400, L500.4050, L501.96643, L3300.6900, L501.9520, L100.0100 #### [facility] [address], [address] Erythrocyte distribution width (RBC) [Ratio] 13.1 % Normal 11.6-14.6 [facility] Comment on above: Performed By: #### L 506.0400, L500.4050, L501.13360, L3300.6900, L501.9520, L100.0100 #### [facility] [address] [place], [address] Hematocrit (Bld) [Volume fraction] 36.9 % Low 37-47 [facility] Comment on above: Performed By: #### L 506.0400, L500.4050, L501.44746, L3300.6900, L501.9520, L100.0100 #### [facility] [address] [place], [address] Hemoglobin (Bld) [Mass/Vol] 12.2 g/dL Normal 12.0-15.0 [facility] Comment on above: Performed By: #### L 506.0400, L500.4050, L501.23676, L3300.6900, L501.9520, L100.0100 #### [facility] [address] [place], [address] IG% 0.300 Normal 0.0-0.9 [facility] Comment on above: Result Comment: IG% - Immature Granulocytes (promyelocytes, myelocytes and metamyelocytes) > 1% indicates that a LEFT SHIFT is Present. Performed By: #### L 506.0400, L500.4050, L501.11163, L3300.6900, L501.9520, L100.0100 #### [facility] [address] [place], [address] Lymphocytes/100 WBC (Bld) 32.2 % Normal 19-41 [facility] Comment on above: Performed By: #### L 506.0400, L500.4050, L501.70113, L3300.6900, L501.9520, L100.0100 #### [facility] [address] [place], [address] MCH (RBC) [Entitic mass] 29.8 pg Normal 27.0-32.0 [facility] Comment on above: Performed By: #### L 506.0400, L500.4050, L501.28523, L3300.6900, L501.9520, L100.0100 #### [facility] [address] [place], [address] MCHC (RBC) [Mass/Vol] 33.1 g/dL Normal 32-[address] [facility] Comment on above: Performed By: #### L 506.0400, L500.4050, L501.12680, L3300.6900, L501.9520, L100.0100 #### [facility] [address] [place], [address] MCV (RBC) [Entitic vol] 90.0 fL Normal 81-99 [facility] Comment on above: Performed By: #### L 506.0400, L500.4050, L501.45312, L3300.6900, L501.9520, L100.0100 #### [facility] [address] [place], [address] Monocytes/100 WBC (Bld) 8.6 % Normal 0-10 [facility] Comment on above: Performed By: #### L 506.0400, L500.4050, L501.58234, L3300.6900, L501.9520, L100.0100 #### [facility] [address] [place], [address] Neutrophils/100 WBC (Bld) 54.2 % Normal 47-70 [facility] Comment on above: Performed By: #### L 506.0400, L500.4050, L501.99630, L3300.6900, L501.9520, L100.0100 #### [facility] [address] [place], [address] Nucleated RBC (Bld) [#/Vol] 0 10*3/uL Normal 0-5 [facility] Comment on above: Performed By: #### L 506.0400, L500.4050, L501.70832, L3300.6900, L501.9520, L100.0100 #### [facility] [address] [place], [address] Platelet mean volume (Bld) [Entitic vol] 8.7 fL Normal 6.2-12.0 [facility] Comment on above: Performed By: #### L 506.0400, L500.4050, L501.43019, L3300.6900, L501.9520, L100.0100 #### [facility] [address] [place], [address] Platelets (Bld) [#/Vol] 322 10*3/uL Normal 150-450 [facility] Comment on above: Performed By: #### L 506.0400, L500.4050, L501.04378, L3300.6900, L501.9520, L100.0100 #### [facility] [address] [place], [address] RBC (Bld) [#/Vol] 4.10 10*6/uL Low 4.2-5.4 [facility] Comment on above: Performed By: #### L 506.0400, L500.4050, L501.57545, L3300.6900, L501.9520, L100.0100 #### [facility] [address] [place], [address] RDW SD 42.6 fl Normal 35.1-43.9 [facility] Comment on above: Performed By: #### L 506.0400, L500.4050, L501.87740, L3300.6900, L501.9520, L100.0100 #### [facility] [address] [place], [address] WBC (Bld) [#/Vol] 9.0 10*3/uL Normal 4.4-11.0 [facility] Comment on above: Performed By: #### L 506.0400, L500.4050, L501.71000, L3300.6900, L501.9520, L100.0100 #### [facility] [address] [place], [address] Carbon dioxide measurementOr dered By: Xochilt Rutherford on 04-29-2024 CO2 [Moles/Vol] 21.0 mmol/L 21.0-32.0 [facility] Chloride measurementOrdered By: Xochilt Rutherford on 04-29-2024 Chloride [Moles/Vol] 112 mmol/L High 98-107 [facility] Comprehensive Metabolic Prof ilon 04-29-2024 Albumin [Mass/Vol] 3.6 g/dL Normal 3.2-5.0 [facility] Comment on above: Performed By: #### L 506.0400, L500.4050, L501.12167, L3300.6900, L501.9520, L100.0100 #### [facility] [address] [place], [address] Albumin/Globulin [Mass ratio] 1.1 {ratio} Normal 0.9-2.4 [facility] Comment on above: Performed By: #### L 506.0400, L500.4050, L501.56281, L3300.6900, L501.9520, L100.0100 #### [facility] [address] [place], [address] ALK P 69 U/L Normal 45-117 [facility] Comment on above: Performed By: #### L 506.0400, L500.4050, L501.00931, L3300.6900, L501.9520, L100.0100 #### [facility] [address] [place], [address] ALT [Catalytic activity/Vol] 32 U/L Normal 13-56 [facility] Comment on above: Performed By: #### L 506.0400, L500.4050, L501.52545, L3300.6900, L501.9520, L100.0100 #### [facility] [address] [place], [address] AST [Catalytic activity/Vol] 21 U/L Normal 15-37 [facility] Comment on above: Performed By: #### L 506.0400, L500.4050, L501.23274, L3300.6900, L501.9520, L100.0100 #### [facility] [address] [place], [address] Bilirubin [Mass/Vol] 0.30 mg/dL Normal 0.20-1.00 [facility] Comment on above: Result Comment: For patients on eltrombopag therapy, use of Dimension [place] TBIL is not recommended. Performed By: #### L 506.0400, L500.4050, L501.07776, L3300.6900, L501.9520, L100.0100 #### [facility] [address] [place], [address] BUN/CRE 14.5 RATIO Normal 10-20 [facility] Comment on above: Performed By: #### L 506.0400, L500.4050, L501.65957, L3300.6900, L501.9520, L100.0100 #### [facility] [address] [place], [address] CA,Total 8.0 mg/dL Low 8.5-10.1 [facility] Comment on above: Performed By: #### L 506.0400, L500.4050, L501.77232, L3300.6900, L501.9520, L100.0100 #### [facility] [address] [place], [address] Chloride [Moles/Vol] 112 mmol/L High 98-107 [facility] Comment on above: Performed By: #### L 506.0400, L500.4050, L501.87063, L3300.6900, L501.9520, L100.0100 #### [facility] [address] [place], [address] CO2 [Moles/Vol] 21.0 mmol/L Normal 21.0-32.0 [facility] Comment on above: Performed By: #### L 506.0400, L500.4050, L501.77650, L3300.6900, L501.9520, L100.0100 #### [facility] [address] [place], [address] Creatinine [Mass/Vol] 0.90 mg/dL Normal 0.55-1.[address] [facility] Comment on above: Result Comment: The validity of the calculated GFR GFRAA in patients over 70 years has not been determined. Clinical correlation is essential. Performed By: #### L 506.0400, L500.4050, L501.38480, L3300.6900, L501.9520, L100.0100 #### [facility] [address] [place], [address] EST GFR - AA 89 mL/min Normal >60 [facility] Comment on above: Result Comment: Afri can Palauan GFR Calc Performed By: #### L 506.0400, L500.4050, L501.78691, L3300.6900, L501.9520, L100.0100 #### [facility] [address] [place], [address] GAP 7 Normal 5-15 [facility] Comment on above: Performed By: #### L 506.0400, L500.4050, L501.97461, L3300.6900, L501.9520, L100.0100 #### [facility] [address] [place], [address] GFR/1.73 sq M.predicted among non-blacks MDRD (S/P/Bld) [Vol rate/Area] 74 mL/min/{1.73_m2} Normal >60 [facility] Comment on above: Result Comment: Non- GFR Calc Performed By: #### L 506.0400, L500.4050, L501.91461, L3300.6900, L501.9520, L100.0100 #### [facility] [address] [place], [address] Globulin (S) [Mass/Vol] 3.3 g/dL Normal 2.2-4.2 [facility] Comment on above: Performed By: #### L 506.0400, L500.4050, L501.91699, L3300.6900, L501.9520, L100.0100 #### [facility] [address] [place], [address] Glucose [Mass/Vol] 106 mg/dL Normal 74-106 [facility] Comment on above: Result Comment: Fast ing Glucose result from 100 to 125 mg/dL suggests IMPAIRED HOMEOSTASIS per A.D.A. criteria. Performed By: #### L 506.0400, L500.4050, L501.28111, L3300.6900, L501.9520, L100.0100 #### [facility] [address] [place], [address] Potassium [Moles/Vol] 3.5 mmol/L Normal 3.5-5.[address] [facility] Comment on above: Performed By: #### L 506.0400, L500.4050, L501.67691, L3300.6900, L501.9520, L100.0100 #### [facility] [address] [place], [address] Sodium [Moles/Vol] 139 mmol/L Normal 136-145 [facility] Comment on above: Performed By: #### L 506.0400, L500.4050, L501.95176, L3300.6900, L501.9520, L100.0100 #### [facility] [address] [place], [address] T PROT 6.9 g/dL Normal 6.4-8.2 [facility] Comment on above: Performed By: #### L 506.0400, L500.4050, L501.38636, L3300.6900, L501.9520, L100.0100 #### [facility] [address] [place], [address] Urea nitrogen [Mass/Vol] 13 mg/dL Normal 7-18 [facility] Comment on above: Performed By: #### L 506.0400, L500.4050, L501.36862, L3300.6900, L501.9520, L100.0100 #### [facility] [address] [place], [address] Direct serum free thyroxine (FT4) measurementOrdered By: Xochilt Rutherford on 04-29-2024 Free T4 [Mass/Vol] 1.02 ng/dL 0.76-1.46 [facility] Eosinophil percentageOrdered By: Xochilt Rutherford on 04-29-2024 Eosinophils/100 WBC (Bld) 3.7 % 0-5 [facility] Erythrocyte distribution wid th ratioOrdered By: Xochilt Rutherford on 04-29-2024 Erythrocyte distribution width (RBC) [Ratio] 13.1 % 11.6-14.6 [facility] Erythrocyte distribution wid th standard deviationOrdered By: Xochilt Rutherford on 04-29-2024 Erythrocyte distribution width (RBC) [Entitic vol] 42.6 fL 35.1-43.9 [facility] Estimated glomerular filtrat ion rate (GFR) AmericanOrdered By: Xochilt Rutherford on 04-29-2024 Estimated GFR (MDRD) Amer 89 mL/min >60 [facility] Comment on above: GFR Calc Free T3on 04-29-2024 Free T3 [Mass/Vol] 2.4 pg/mL Normal 2.18-3.98 [facility] Comment on above: Performed By: #### L 506.0400, L500.4050, L501.44035, L3300.6900, L501.9520, L100.0100 #### [facility] [place], [address] Free O3Civfvlc By: Xochilt mcmillan on 04-29-2024 Free Triiodothyronine (T3) pg/dL 2.4 pg/mL 2.18-3.98 [facility] Glomerular filtration rate ( GFR) estimationOrdered By: Xochilt Rutherford on 04-29-2024 Estimated GFR (MDRD) Non-Af Amer 74 mL/min >60 [facility] Comment on above: Non- GFR Calc Glucose measurementOrdered B y: Xochilt Rutherford on 04-29-2024 Glucose [Mass/Vol] 106 mg/dL 74-106 [facility] Comment on above: Fasting Glucose resu lt from 100 to 125 mg/dL suggests IMPAIRED HOMEOSTASIS per A.D.A. criteria. Hematocrit Auto (Bld) [Volum e fraction]Ordered By: Xochilt Rutherford on 04-29-2024 Hematocrit (Bld) [Volume fraction] 36.9 % Low 37-47 [facility] Hemoglobin measurementOrdere d By: Xochilt Rutherford on 04-29-2024 Hemoglobin (Bld) [Mass/Vol] 12.2 g/dL 12.0-15.0 [facility] Immature granulocytes/100 WB C Auto (Bld)Ordered By: Xochilt Rutherford on 04-29-2024 Immature granulocytes/100 WBC (Bld) 0.300 % 0.0-0.9 [facility] Comment on above: IG% - Immature Granu locytes (promyelocytes, myelocytes and metamyelocytes) > 1% indicates that a LEFT SHIFT is Present. Laboratory - Chemistry and C hemistry - challengeOrdered By: Xochilt Rutherford on 04-29-2024 AST [Catalytic activity/Vol] 21 U/L 15-37 [facility] Lymphocytes Auto (Unsp spec) [#/Vol]Ordered By: Xochilt Rutherford on 04-29-2024 Lymphocytes (Bld) [#/Vol] 2.89 10*3/uL 0.83-4.51 [facility] Lymphocytes/100 WBC Auto (Un sp spec)Ordered By: Xochilt Rutherford on 04-29-2024 Lymphocytes/100 WBC (Bld) 32.2 % 19-41 [facility] MCV (mean corpuscular volume ) determinationOrdered By: Xochilt Rutherford on 04-29-2024 MCV (RBC) [Entitic vol] 90.0 fL 81-99 [facility] Mean corpuscular hemoglobin (MCH) determinationOrdered By: Xochilt Rutherford on 04-29-2024 MCH (RBC) [Entitic mass] 29.8 pg 27.0-32.0 [facility] Mean corpuscular hemoglobin concentration (MCHC) determinationOrdered By: Xochilt Rutherford on 04-29-2024 MCHC (RBC) [Mass/Vol] 33.1 g/dL 32-[address] [facility] Mean platelet volume determi nationOrdered By: Xochilt Rutherford on 04-29-2024 Platelet mean volume (Bld) [Entitic vol] 8.7 fL 6.2-12.0 [facility] Monocyte percentageOrdered B y: Xochilt Rutherford on 04-29-2024 Monocytes/100 WBC (Bld) 8.6 % 0-10 [facility] Neutrophil percentageOrdered By: Xochilt Rutherford on 04-29-2024 Neutrophils/100 WBC (Bld) 54.2 % 47-70 [facility] Nucleated red blood cell per centageOrdered By: Xochilt Rutherford on 04-29-2024 Nucleated RBC/100 WBC (Bld) [Ratio] 0 % 0-5 [facility] Platelet countOrdered By: Joann Rutherford on 04-29-2024 Platelets (Bld) [#/Vol] 322 10*3/uL 150-450 [facility] Potassium measurementOrdered By: Xochilt Rutherford on 04-29-2024 Potassium [Moles/Vol] 3.5 mmol/L 3.5-5.[address] [facility] RBC Auto (Bld) [#/Vol]Ordere d By: Xochilt Rutherford on 04-29-2024 RBC (Bld) [#/Vol] 4.10 10*6/uL Low 4.2-5.4 [facility] Serum anion gap measurementO rdered By: Xochilt Rutherford on 04-29-2024 Anion gap [Moles/Vol] 7 mmol/L 5-[address] [facility] Serum globulin measurementOr dered By: Xochilt Rutherford on 04-29-2024 Globulin (S) [Mass/Vol] 3.3 g/dL 2.2-4.2 [facility] Serum or plasma alanine graf otransferase (ALT) measurementOrdered By: Xochilt Rutherford on 04-29-2024 ALT [Catalytic activity/Vol] 32 U/L 13-56 [facility] Serum or plasma albumin fredrick urement (mass/volume)Ordered By: Xochilt Rutherford on 04-29-2024 Albumin [Mass/Vol] 3.6 g/dL 3.2-5.0 [facility] Serum or plasma alkaline rony sphatase measurementOrdered By: Xochilt Rutherford on 04-29-2024 ALP [Catalytic activity/Vol] 69 U/L 45-117 [facility] Serum or plasma calcium fredrick urement (mass/volume)Ordered By: Xochilt Rutherford on 04-29-2024 Calcium [Mass/Vol] 8.0 mg/dL Low 8.5-10.1 [facility] Serum or plasma creatinine m easurement (mass/volume)Ordered By: Xochilt Rutherford on 04-29-2024 Creatinine [Mass/Vol] 0.90 mg/dL 0.55-1.[address] [facility] Comment on above: The validity of the calculated GFR & GFRAA in patients over 70 years has not been determined. Clinical correlation is essential. Serum or plasma urea nitroge n measurement (mass/volume)Ordered By: Xochilt Rutherford on 04-29-2024 Urea nitrogen [Mass/Vol] 13 mg/dL 7-18 [facility] Sodium levelOrdered By: Ashleigh Rutherford on 04-29-2024 Sodium [Moles/Vol] 139 mmol/L 136-145 [facility] T4 Free Directon 04-29-2024 T4 FREE DIRECT 1.02 ng/dL Normal 0.76-1.46 [facility] Comment on above: Performed By: #### L 506.0400, L500.4050, L501.51434, L3300.6900, L501.9520, L100.0100 #### [facility] [address] [place], [address] TPO Ab QnOrdered By: Xochilt Rutherford on 04-29-2024 Thyroid Peroxidase Antibodies < 9 IU/mL 0-34 [facility] Comment on above: Performed at: [address] [id number] Director: Madhu Carrion PhD, Phone: [phone] TSH QnOrdered By: Xochilt Oh on 04-29-2024 Thyroid Stimulating Hormone (TSH) 2.010 uIU/mL 0.358-3.74 0 [facility] Thyroid Stim Hormone (TSH)on 04-29-2024 TSH 2.010 uIU/mL Normal 0.358-3.74 0 [facility] Comment on above: Performed By: #### L 506.0400, L500.4050, L501.07165, L3300.6900, L501.9520, L100.0100 #### [facility] [address] [place], [address] Total proteinOrdered By: Placido Rutherford on 04-29-2024 Protein [Mass/Vol] 6.9 g/dL 6.4-8.2 [facility] White blood cell (WBC) count Ordered By: Xochilt Rutherford on 04-29-2024 WBC (Bld) [#/Vol] 9.0 10*3/uL 4.4-11.0 [facility] 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 Office Visit Reporton 04-28-2024 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 [employer]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 Office Visit Report [facility], [address] [place] [address] OFFICE VISIT Date of Service: 04/28/24 MR#: [id number] Acct: [id number] Name: JACLYN MAE Rep #: [id number] : 1980 Provider: SONIYA Oh Age/Sex: 43/F Location: [facility] [place] Status: Signed Intake Vital Signs 12/02/23 14:19 03/19/24 15:11 04/28/24 14:29 Height 5 ft 7 in 5 ft 7 in 5 ft 7 in Weight: 158 lb BMI 24.7 BP 119/79 Intake Visit Reasons: 3 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 Is patient in pain?: No Allergies ampicillin Allergy (Verified 04/28/24 14:28) Itching Fish Containing Products Allergy (Verified 04/28/24 14:28) Shortness of breath Penicillins (PCN) Allergy (Verified 04/28/24 14:28) Shortness of breath clindamycin Adverse Reaction (Verified 04/28/24 14:28) Pain in joints Medications ???Medication ???Instructions ???Recorded ???Confirmed ???Type citalopram 40 mg tablet 40 mg PO DAILY depression #90 tabs 08/15/21 04/28/24 Rx albuterol sulfate 90 mcg/actuation 2 puff inhalation Q4H PRN 04/28/24 Rx aerosol inhaler shortness of breath or wheezing #1 ea budesonide-formoterol HFA 160 2 puff inhalation BID #10.2 grams 04/23/23 04/28/24 Rx mcg-4.5 mcg/actuation aerosol inhaler (Symbicort) cetirizine 10 mg capsule 10 mg PO HS #90 caps 04/23/23/08/15 Rx epinephrine 0.3 mg/0.3 mL 0.3 ml IM PRN as needed for 04/28/24 History injection, auto-injector allergic reaction fluticasone propionate 50 2 spray intranasal DAILY #16 grams 04/23/23 04/28/24 Rx mcg/actuation nasal spray,suspension spacer #1 ea 04/23/23 04/28/24 Rx tiotropium bromide 1.25 2 puff inhalation DAILY #4 grams 0 04/23/23 04/28/24 Rx mcg/actuation mist for inhalation (Spiriva Respimat) topiramate 50 mg tablet 50 mg PO BID #60 tabs 02/13/2408/15 Rx phentermine 37.5 mg tablet 18.75 mg (1/2 x 37.5 mg) PO QDAY 1 05/21/23 04/28/24 Rx (Adipex-P) #30 tabs Held on 04/28/24. Instructions: Order Changed Last Menstrual Period: 04/26/24 [facility] Medical History Wears contact lenses MRSA infection Thyroid disease Bladder disease Anemia History of hiatal hernia History of IBS Gastric reflux Former smoker History of stress test History of echocardiogram Thyroid nodule Abnormal results of thyroid function studies Prediabetes Anxiety depression Asthma GERD (gastroesophageal reflux disease) Anxiety and depression Surgical History History of tubal ligation Hx of cholecystectomy Hx of appendectomy Family History Mother ADALBERTO III (cervical intraepithelial neoplasia grade III) with severe dysplasia Diabetes Thyroid disorder Grandmother Diabetes Thyroid disorder Other CVA (cerebral vascular accident) Kidney disease Social History adopted: No household members: family housing: house number of children: 6 current occupational status: employed current occupation: [employer] pets and animals: No history of recent travel: No Smoking Status: Former smoker second hand exposure: No alcohol intake: never substance use type: does not use caffeine: No what type of physical activity do you participate in: walking, bicycling and weight training frequency: 3-4 times per week seatbelt use: always do you feel safe at home: Yes additional social history: Boyfriend- Chaz History 6 Elective abortions Hx Para 6 Spontaneous abortions Hx # Term Pregnancies Ectopic pregnancies Hx # Pregnancies Multiple births # of living children 6 Past Pregnancies Del. Date Name GA/Weeks Outcome Route Bth Weight Infant Gen Labor Lgth Anesthesia Del Locatn Provider FOB Unknown 2001- Guillermo 38 live - full term 8lbs 1oz Male none [employer] Shannon Unknown [id number] 39 live - full term 7lbs 4oz Female epidural [employer] [place] Unknown 2006- 39 live - full term 7LBS 14OZ Female epidural WC JOSÉ MANUEL Unknown 37 live - full term 8LBS 7OZ Male epidural WC RAMESH Unknown 38 live - full term 9LBS 12OZ Male none [employer] JOSÉ MANUEL 01/04/20 Sherif 37 live - full term Female epidural WC SE M Delivery Date: Last Updated by: Vielka Conde labor at 32 weeks Delivery Date: Last Updated by: Vielka Conde NO COMPLICATIONS Delivery Date: Last Updated by: Vielka Conde IOL- OLIGO Delivery Date: Last Updated by: Vielka Conde LABOR AT 32 WEEKS, WENT TO [facility], IOL OLIGO Delivery Date: Last (more content not included)... 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 Attempted to call patient. No answer. Requested return call. Will place patient on Bactrim Mychart message sent sent Allergies As of Date: 04/09/2024 Noted Allergy Reaction CLINDOMYCIN (CLINDAMYCIN) 07/10/2009 12 - Shortness of Breath PENICILLINS 11/30/2004 12 - Shortness of Breath Date Reviewed: 04/06/2024 Reviewed by: Starla Tay LPN - Fully Assessed Reason for Visit: Results [95] Order(s):sulfamethoxazo le-trimethoprim (BACTRIM DS) 800-160 mg per tabletTake 1 tablet by mouth two times a day for 5 days.Disp: 10 tabletRfl: 0 Prescriptions as of 04/09/2024 - sulfamethoxazole-trimet hoprim (BACTRIM DS) 800-160 mg per tablet Take 1 tablet by mouth two times a day for 5 days. - topiramate (TOPAMAX) 50 mg tablet take 50 mg orally twice a day; take before breakfast and before dinner, take ONE-HALF tab TWICE DAILY TIME two weeks then full tab TWICE DAILY - SPIRIVA RESPIMAT 1.25 mcg/actuation inhaler inhale 2 (TWO) puffs BY MOUTH EVERY DAY - montelukast (SINGULAIR) 10 mg tablet - benzonatate (TESSALON PERLES) 100 mg capsule Take 2 capsules by mouth three times a day as needed. - Phentermine HCl 37.5 mg tablet Take 37.5 mg by mouth daily before breakfast. - diclofenac (VOLTAREN) 1 % topical gel Apply 2 g to affected area four times daily. - albuterol HFA (PROVENTIL HFA, VENTOLIN HFA) 90 mcg/actuation inhaler Inhale 2 Puffs as instructed every 4 hours as needed for wheezing/shortness of breath. - pantoprazole DR (PROTONIX) 40 mg tablet Take 1 tablet by mouth daily before breakfast. Take on empty stomach, 1/2 hr before meal. - citalopram (CELEXA) 40 mg tablet Take 1 tablet by mouth once daily. - albuterol HFA (VENTOLIN HFA) 90 mcg/actuation inhaler Inhale 2 Puffs as instructed every 4 hours as needed. - fluticasone (FLOVENT HFA) 110 mcg/actuation inhaler Inhale 1 Puff as instructed twice daily. - EPINEPHrine (EPIPEN) 0.3 mg/0.3 mL (1:1,000) atIn Inject intramuscularly. use as directed for allergic reaction. Seek emergent medical care immediately after use. 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] 11/17/2006 Pain in joint, lower leg [M25.569] 11/17/2006 07/12/2011 Allergy to seafood [Z91.013] 12/16/2006 07/06/2012 Eating disorder, unspecified [F50.9] 03/27/2007 07/12/2011 Calculus of GB w/ other cystitis [K80.10] 04/13/2007 07/12/2011 Iron deficiency anemia, unspecified [D50.9] 04/15/2007 07/12/2011 Acute gastritis without mention of hemorrhage [*05/22/2007 08/28/2011 Abdominal pain, epigastric [R10.13] 05/22/2007 07/12/2011 Herpes simplex without mention of complication *10/27/2007 Depressive disorder, not elsewhere classified [*01/04/2010 Carpal tunnel syndrome on right [G56.01] 01/04/2010 07/12/2011 Panic attacks [F41.0] 07/19/2010 Supervision of other normal [Z34.80] 08/07/2011 04/10/2012 Rh negative status during [O26.899, Z*08/07/2011 04/10/2012 FHx: cleft palate [Z82.79] 08/07/2011 07/06/2012 GBS (group B streptococcus) UTI complicating pr*10/18/2011 04/10/2012 First trimester bleeding [O20.9] 05/25/2012 07/06/2012 Nausea and vomiting in [O21.9] 05/25/2012 07/06/2012 History of labor [Z87.51] 05/25/2012 06/12/2017 Family history of defects [Z82.79] 05/25/2012 Rh negative status during [O26.899, Z*05/25/2012 06/12/2017 Patient requested diagnostic testing [Z01.89] 05/25/2012 Varicose veins [I83.90] 05/25/2012 History of hemorrhage, currently pre*05/25/2012 06/12/2017 Inguinal hernia [K40.90] 10/27/2012 Prescriptions ordered this encounter Disp Refills Start End SULFAMETHOXAZOLE 800 MG-TRIMETHOPRIM* 10 t* 0 04/09/2024 04/14/2024 Route: ORAL Sig: Take 1 tablet by mouth two times a day for 5 days. Medications Discontinued During This Encounter Prescriptions - nitrofurantoin monohydrate and macrocrystal (MACROBID) 100 mg capsule (Discontinued) Take 1 capsule by mouth two times a day for 5 days. Encounter Status:Closed by ANIKA RIZZO on 04/09/24 [facility] 54-ZW-Iverigg DOrdered By: Skylar Art on 04-07-2024 Vitamin D 25-Hydroxy 46.0 ng/mL [facility] Comment on above: Vitamin D 25(OH) Sta tus Range Deficiency <20 ng/mL (50nmol/L) Insufficiency 20 - 30 ng/mL (50 - 75 nmol/L) Sufficiency 30 - 100 ng/mL (75 - 250 nmol/L) Toxicity >100 ng/mL (>250 nmol/L) Albumin to globulin ratioOrd ered By: Jaclyn Art on 04-07-2024 Albumin/Globulin [Mass ratio] 1.1 {ratio} 0.9-2.4 [facility] Bilirubin, totalOrdered By: Jaclyn Art on 04-07-2024 Bilirubin [Mass/Vol] 0.30 mg/dL 0.20-1.00 [facility] Comment on above: For patients on eltr ombopag therapy, use of Dimension [place] TBIL is not recommended. Blood urea nitrogen (BUN)/cr eatinine ratioOrdered By: Jaclyn Art on 04-07-2024 Urea nitrogen/Creatinine [Mass ratio] 21.9 mg/mg High 10-20 [facility] Carbon dioxide measurementOr dered By: Jaclyn Art on 04-07-2024 CO2 [Moles/Vol] 27.0 mmol/L 21.0-32.0 [facility] Chloride measurementOrdered By: Jaclyn Art on 04-07-2024 Chloride [Moles/Vol] 105 mmol/L 98-107 [facility] Comprehensive Metabolic Prof ilon 04-07-2024 Albumin [Mass/Vol] 4.3 g/dL Normal 3.2-5.0 [facility] Comment on above: Performed By: #### L [id number], L3300.1750, L500.4050, L506.1000, L3100.5055 ####[facility] [address] [place], [address] Albumin/Globulin [Mass ratio] 1.1 {ratio} Normal 0.9-2.4 [facility] Comment on above: Performed By: #### L [id number], L3300.1750, L500.4050, L506.1000, L3100.5055 ####[facility] [address] [place], [address] ALK P 89 U/L Normal 45-117 [facility] Comment on above: Performed By: #### L [id number], L3300.1750, L500.4050, L506.1000, L3100.5055 ####[facility] [address] [place], [address] ALT [Catalytic activity/Vol] 37 U/L Normal 13-56 [facility] Comment on above: Performed By: #### L [id number], L3300.1750, L500.4050, L506.1000, L3100.5055 ####[facility] [address] [place], [address] AST [Catalytic activity/Vol] 19 U/L Normal 15-37 [facility] Comment on above: Performed By: #### L [id number], L3300.1750, L500.4050, L506.1000, L3100.5055 ####[facility] [address] [place], [address] Bilirubin [Mass/Vol] 0.30 mg/dL Normal 0.20-1.00 [facility] Comment on above: Result Comment: For patients on eltrombopag therapy, use of Dimension [place] TBIL is not recommended. Performed By: #### L [id number], L3300.1750, L500.4050, L506.1000, L3100.5055 ####[facility] [address] [place], [address] BUN/CRE 21.9 RATIO High 10-20 [facility] Comment on above: Performed By: #### L [id number], L3300.1750, L500.4050, L506.1000, L3100.5055 ####[facility] [address] [place], [address] CA,Total 9.3 mg/dL Normal 8.5-10.1 [facility] Comment on above: Performed By: #### L [id number], L3300.1750, L500.4050, L506.1000, L3100.5055 ####[facility] [address] [place], [address] Chloride [Moles/Vol] 105 mmol/L Normal 98-107 [facility] Comment on above: Performed By: #### L [id number], L3300.1750, L500.4050, L506.1000, L3100.5055 ####[facility] [address] [place], [address] CO2 [Moles/Vol] 27.0 mmol/L Normal 21.0-32.0 [facility] Comment on above: Performed By: #### L [id number], L3300.1750, L500.4050, L506.1000, L3100.5055 ####[facility] [address] [place], [address] Creatinine [Mass/Vol] 0.73 mg/dL Normal 0.55-1.[address] [facility] Comment on above: Result Comment: The validity of the calculated GFR GFRAA in patients over 70 years has not been determined. Clinical correlation is essential. Performed By: #### L 501.9520, L3300.1750, L500.4050, L506.1000, L3100.5055 ####[facility] [address] [place], [address] EST GFR - AA 112 mL/min Normal >60 [facility] Comment on above: Result Comment: Afri can Palauan GFR Calc Performed By: #### L [id number], L3300.1750, L500.4050, L506.1000, L3100.5055 ####[facility] [address] [place], [address] GAP 4 Low 5-15 [facility] Comment on above: Performed By: #### L 501.9520, L3300.1750, L500.4050, L506.1000, L3100.5055 ####[facility] [address] [place], [address] GFR/1.73 sq M.predicted among non-blacks MDRD (S/P/Bld) [Vol rate/Area] 93 mL/min/{1.73_m2} Normal >60 [facility] Comment on above: Result Comment: Non- GFR Calc Performed By: #### L 501.9520, L3300.1750, L500.4050, L506.1000, L3100.5055 ####[facility] [address] [place], [address] Globulin (S) [Mass/Vol] 3.9 g/dL Normal 2.2-4.2 [facility] Comment on above: Performed By: #### L 501.9520, L3300.1750, L500.4050, L506.1000, L3100.5055 ####[facility] [address] [place], [address] Glucose [Mass/Vol] 74 mg/dL Normal 74-106 [facility] Comment on above: Performed By: #### L 501.9520, L3300.1750, L500.4050, L506.1000, L3100.5055 ####[facility] [address] [place], [address] Potassium [Moles/Vol] 3.0 mmol/L Low 3.5-5.[address] [facility] Comment on above: Performed By: #### L 501.9520, L3300.1750, L500.4050, L506.1000, L3100.5055 ####[facility] [address] [place], [address] Sodium [Moles/Vol] 136 mmol/L Normal 136-145 [facility] Comment on above: Performed By: #### L 501.9520, L3300.1750, L500.4050, L506.1000, L3100.5055 ####[facility] [address] [place], [address] T PROT 8.2 g/dL Normal 6.4-8.2 [facility] Comment on above: Performed By: #### L 501.9520, L3300.1750, L500.4050, L506.1000, L3100.5055 ####[facility] [address] [place], [address] Urea nitrogen [Mass/Vol] 16 mg/dL Normal 7-18 [facility] Comment on above: Performed By: #### L 501.9520, L3300.1750, L500.4050, L506.1000, L3100.5055 ####[facility] [address] [place], [place], [id number] Estimated glomerular filtrat ion rate (GFR) AmericanOrdered By: Jaclyn Art on 04-07-2024 Estimated GFR (MDRD) Amer 112 mL/min >60 [facility] Comment on above: GFR Calc Estradiolon 04-07-2024 ESTRADIOL 195.0 pg/mL Normal [facility] Comment on above: Result Comment: NORM AL REFERENCE RANGES FEMALE FOLLICULAR 21.4 - 164.8 pg/mL MID-CYCLE PEAK 49.9 - 367.2 pg/mL LUTEAL 40.2 - 259.0 pg/mL POST-MENOPAUSAL ON MHT <11.0 - 462.1 pg/mL NOT ON MHT <11.0 - 58.3 pg/mL MALE <11.0 - 52.5 pg/mL NOTE: [employer] HAS CONFIRMED THE DRUG FULVETRANT (FASLODEX) MAY CAUSE FALSELY ELEVATED ESTRADIOL RESULTS WHEN USING THIS TEST METHOD. IF PATIENT IS TAKING FULVESTRANT AN ALTERNATIVE METHOD SHOULD BE USED TO DETERMINE ESTRADIOL CONCENTRATION. Performed By: #### L 501.9520, L3300.1750, L500.4050, L506.1000, L3100.5055 ####[facility] [address] [place], [place], [id number] Estradiol measurementOrdered By: Jaclyn Art on 04-07-2024 Estradiol (E2) Level 195.0 pg/mL [facility] Comment on above: NORMAL REFERENCE RAN GES FEMALE FOLLICULAR 21.4 - 164.8 pg/mL MID-CYCLE PEAK 49.9 - 367.2 pg/mL LUTEAL 40.2 - 259.0 pg/mL POST-MENOPAUSAL ON MHT <11.0 - 462.1 pg/mL NOT ON MHT <11.0 - 58.3 pg/mL MALE <11.0 - 52.5 pg/mL NOTE:[employer] HAS CONFIRMED THE DRUG FULVETRANT (FASLODEX) MAY CAUSE FALSELY ELEVATED ESTRADIOL RESULTS WHEN USING THIS TEST METHOD. IF PATIENT IS TAKING FULVESTRANT AN ALTERNATIVE METHOD SHOULD BE USED TO DETERMINE ESTRADIOL CONCENTRATION. FSH and LHon 04-07-2024 FSH 4.5 mIU/mL Normal [facility] Comment on above: Result Comment: NORMAL REFERENCE RANGES FEMALE FOLLICULAR 2.3 - 12.6 mIU/mL MID-CYCLE PEAK 5.2 - 17.5 mIU/mL LUTEAL 1.7 - 12.9 mIU/mL POST-MENOPAUSAL ON MHT 5.9 - 72.8 mIU/mL NOT ON MHT 12.7 - 132.2 mlU/mL MALE 0.7 - 10.8 mIU/mL Performed By: #### L 501.9520, L3300.1750, L500.4050, L506.1000, L3100.5055 ####[facility] [address] [place], [place], [id number] LH 6.4 mIU/mL Normal [facility] Comment on above: Result Comment: NORMAL REFERENCE RANGES FEMALE FOLLICULAR 1.9 - 26.2 mIU/mL MID-CYCLE PEAK 22.8 - 76.1 mIU/mL LUTEAL 0.6 - 16.6 mIU/mL POST-MENOPAUSAL ON MHT 1.1 - 52.4 mIU/mL NOT ON MHT 8.6 - 61.8 mIU/mL MALE 1.2 - 10.6 mIU/mL Performed By: #### L 501.9520, L3300.1750, L500.4050, L506.1000, L3100.5055 ####[facility] [address] [place], [place], [id number] Follicle stimulating hormone (FSH) levelOrdered By: Jaclyn Art on 04-07-2024 Follicle Stimulating Hormone 4.5 mIU/mL [facility] Comment on above: NORMAL REFERENCE RAN GES FEMALE FOLLICULAR 2.3 - 12.6 mIU/mL MID-CYCLE PEAK 5.2 - 17.5 mIU/mL LUTEAL 1.7 - 12.9 mIU/mL POST-MENOPAUSAL ON MHT 5.9 - 72.8 mIU/mL NOT ON MHT 12.7 - 132.2 mlU/mL MALE 0.7 - 10.8 mIU/mL Glomerular filtration rate ( GFR) estimationOrdered By: Jaclyn Art on 04-07-2024 Estimated GFR (MDRD) Non-Af Amer 93 mL/min >60 [facility] Comment on above: Non- GFR Calc Glucose measurementOrdered B y: Jaclyn Art on 04-07-2024 Glucose [Mass/Vol] 74 mg/dL 74-106 [facility] Laboratory - Chemistry and C hemistry - challengeOrdered By: Jaclyn Art on 04-07-2024 AST [Catalytic activity/Vol] 19 U/L 15- [facility] Luteinizing hormone measurem entOrdered By: Jaclyn Art on 04-07-2024 Luteinizing Hormone 6.4 mIU/mL [facility] Comment on above: NORMAL REFERENCE RAN GES FEMALE FOLLICULAR 1.9 - 26.2 mIU/mL MID-CYCLE PEAK 22.8 - 76.1 mIU/mL LUTEAL 0.6 - 16.6 mIU/mL POST-MENOPAUSAL ON MHT 1.1 - 52.4 mIU/mL NOT ON MHT 8.6 - 61.8 mIU/mL MALE 1.2 - 10.6 mIU/mL Potassium measurementOrdered By: Jaclyn Art on 04-07-2024 Potassium [Moles/Vol] 3.0 mmol/L Low 3.5-5.[address] [facility] Serum anion gap measurementO rdered By: Jaclyn Art on 04-07-2024 Anion gap [Moles/Vol] 4 mmol/L Low 5-[address] [facility] Serum globulin measurementOr dered By: Jaclyn Art on 04-07-2024 Globulin (S) [Mass/Vol] 3.9 g/dL 2.2-4.2 [facility] Serum or plasma alanine graf otransferase (ALT) measurementOrdered By: Jaclyn Art on 04-07-2024 ALT [Catalytic activity/Vol] 37 U/L -56 [facility] Serum or plasma albumin fredrick urement (mass/volume)Ordered By: Jaclyn Art on 04-07-2024 Albumin [Mass/Vol] 4.3 g/dL 3.2-5.0 [facility] Serum or plasma alkaline rony sphatase measurementOrdered By: Jaclyn Art on 04-07-2024 ALP [Catalytic activity/Vol] 89 U/L 45-117 [facility] Serum or plasma calcium fredrick urement (mass/volume)Ordered By: Jaclyn Art on 04-07-2024 Calcium [Mass/Vol] 9.3 mg/dL 8.5-10.1 [facility] Serum or plasma creatinine m easurement (mass/volume)Ordered By: Jaclyn Art on 04-07-2024 Creatinine [Mass/Vol] 0.73 mg/dL 0.55-1.[address] [facility] Comment on above: The validity of the calculated GFR & GFRAA in patients over 70 years has not been determined. Clinical correlation is essential. Serum or plasma urea nitroge n measurement (mass/volume)Ordered By: Jaclyn Art on 04-07-2024 Urea nitrogen [Mass/Vol] 16 mg/dL 7-18 [facility] Sodium levelOrdered By: Ely Art on 04-07-2024 Sodium [Moles/Vol] 136 mmol/L 136-145 [facility] TSH QnOrdered By: Jaclyn garner on 04-07-2024 Thyroid Stimulating Hormone (TSH) 4.700 uIU/mL High 0.358-3.74 0 [facility] Thyroid Stim Hormone (TSH)on 04-07-2024 TSH 4.700 uIU/mL High 0.358-3.74 0 [facility] Comment on above: Performed By: #### L 501.9520, L3300.1750, L500.4050, L506.1000, L3100.5055 ####[facility] [address] [place], [address] Total proteinOrdered By: Celina Art on 04-07-2024 Protein [Mass/Vol] 8.2 g/dL 6.4-8.2 [facility] Vitamin D,25 Hydroxyon 04-07 Vitamin D 25-OH 46.0 ng/mL Normal [facility] Comment on above: Result Comment: Donna min D 25(OH) Status Range Deficiency <20 ng/mL (50nmol/L) Insufficiency 20 - 30 ng/mL (50 - 75 nmol/L) Sufficiency 30 - 100 ng/mL (75 - 250 nmol/L) Toxicity >100 ng/mL (>250 nmol/L) Performed By: #### L 501.9520, L3300.1750, L500.4050, L506.1000, L3100.5055 ####[facility] [address] [place], [address] Bacteria Ur Culton 5 Bacteria identified Cx Nom (U) ORGANISM ID: 1 >=100,000 CFU/ml Proteus mirabilis Call the lab ([phone]) within 72 h if susceptibility testing for ertapenem is required. ORGANISM ID: 1 (PROTEUS MIRABILIS) ANTIBIOTIC INTERPRETATION SRINIVAS STATUS REFERENCE RANGE Ampicillin S <=2 F Susceptible <=8 , Intermediate >8 , Resistant >16 Cefazolin S 8 F Susceptible 0-16 , Intermediate <0 or >16 , Resistant >16 For uncomplicated urinary tract infections, cefazolin results can be used to predict susceptibility or resistance to cephalexin. Ceftriaxone S <=1 F Susceptible <=1 , Intermediate >1 , Resistant >=4 Cefepime S <=1 F Susceptible <=2 , Susceptible-Dose Dependent >2 , Resistant >=16 Meropenem S <=0.25 F Susceptible <=1 , Intermediate >1 , Resistant >2 Ampicillin/Sulbact S <=2 F Susceptible <=8 , Intermediate >8 , Resistant >16 Piperacillin/Tazobac S <=4 F Susceptible <16 , Susceptible-Dose Dependent >=16 , Resistant >=32 Gentamicin S <=1 F Susceptible <=2 , Intermediate >2 , Resistant >=8 Tobramycin S <=1 F Susceptible <4 , Intermediate >=4 , Resistant >=8 Trimeth sulfameth S <=20 F Susceptible <=40 , Resistant >40 Ciprofloxacin S <=0.25 F Susceptible <0.5 , Intermediate >=.5 , Resistant >=1 Nitrofurantoin R 128 F Susceptible <=32 , Intermediate >32 , Resistant >64 Abnormal [facility] Comment on above: Performed By: #### 6 30-4 #### [facility] CLIA [id number] [address] [place] [address] OF [facility] CNOVon 04-06-2024 CNOV Office Visit (UCWSTR ) JACLYN MAE ([id number]) 1980 F Date Time Provider Department 04/06/24 7:45 PM ENOCH GUAN [facility] During your visit today, we recorded the following information about you: Temperature Pulse Respiration Blood pressure 96.9 degrees 74/minute 18/minute 136/84 Weight 69.6 kg Enoch Guan APRN.MILK TRUCK DRIVER 04/06/2024 7:53 PM Signed -Increase fluids. Focus on clears. -Decrease sugary drink intake. Minimize caffeine. -Wipe front to back. No tight clothing. No bubble baths. -Results will be released to [facility] unless there is a need for a change in medication. -If no improvement in 3-5 days please be re-seen. -Be seen immediately or go to the ER with worsening/warning symptoms. Warning symptoms include: chills, severe flank pain, severe abdominal/pelvic pain, fevers 101 or higher, chest pain, and respiratory distress. Certain foods and beverages might irritate your bladder, including: Coffee, tea and carbonated drinks, even without caffeine. Alcohol. Certain acidic fruits -- oranges, grapefruits, enrico and limes -- and fruit juices. Spicy foods. Tomato-based products. Carbonated drinks. Chocolate. Enoch Guan APRN.CNP 04/06/2024 7:59 PM Signed This note was created using NoteWriter. Subjective Jaclyn Mae is a 43 year old female. HPI by patient: Jaclyn is a 43 year old presenting to the office with the complaint of urinary frequency and urgency, pelvic pressure. Took a home AZO test and was positive Started approximately 4 days ago Denies any other concerns Covid Immunization Dates Overdue - Covid-19 Vaccine ( season) Never done No completion, postpone, frequency change, or communication history exists for this topic. ALLERGIES Clindomycin [Clinda* Shortness of Breath Penicillins Shortness of Breath Family History Reviewed Including Cardiac Diseases, Psychiatric Diseases, AND Substance Abuse Problem: Arthritis Relation: Father Age of Onset: (Not Specified) Problem: Hypertension Relation: Father Age of Onset: (Not Specified) Problem: Lipids Relation: Father Age of Onset: (Not Specified) Problem: Arthritis Relation: Maternal Grandmother Age of Onset: (Not Specified) Problem: Diabetes Relation: Maternal Grandmother Age of Onset: (Not Specified) Problem: Diabetes Relation: Maternal Grandfather Age of Onset: (Not Specified) Problem: Heart Relation: Paternal Grandmother Age of Onset: (Not Specified) Problem: Psychiatry Relation: Paternal Grandfather Age of Onset: (Not Specified) Problem: Diabetes Relation: Paternal Grandfather Age of Onset: (Not Specified) Problem: Prostate Cancer Relation: Paternal Grandfather Age of Onset: (Not Specified) Problem: Heart Relation: Paternal Uncle Age of Onset: (Not Specified) Problem: other (ADD) Relation: Daughter Age of Onset: (Not Specified) Problem: other (ADHD) Relation: Son Age of Onset: (Not Specified) Social History Tobacco Use Smoking status: Former Packs/day: 0.00 Types: Cigarettes Quit date: 12/17/2005 Years since quittin.3 Smokeless tobacco: Never Tobacco comments: quit one year ago Alcohol use: Yes Comment: Seldom, NOT DURING Drug use: No Review of Systems Constitutional: Negative for chills and fever. Gastrointestinal: Negative for abdominal pain, nausea and vomiting. Genitourinary: Positive for frequency, pelvic pain and urgency. Negative for dysuria, flank pain, hematuria and vaginal discharge. Allergic/Immunologic: Negative for immunocompromised state. Objective LMP 06/05/2021 Physical Exam Vitals and nursing note reviewed. Constitutional: Appearance: She is well-developed. Cardiovascular: Rate and Rhythm: Normal rate and regular rhythm. Heart sounds: Normal heart sounds. Pulmonary: Effort: Pulmonary effort is normal. Breath sounds: Normal breath sounds. Abdominal: General: Bowel sounds are normal. Palpations: Abdomen is soft. Tenderness: There is no abdominal tenderness. Skin: General: Skin is warm and dry. Neurological: Mental Status: She is alert and oriented to person, place, and time. Assessment and Plan ASSESSMENT/PLAN: 1. Urinary frequency - ICD9: 788.41, ICD10: R35.0 acute - Patient education for prevention given - UA DIP, URINE (POC) - BACTERIAL CULTURE, URINE - NITROFURANTOIN MONOHYDRATE AND MACROCRYSTAL 100 MG ORAL CAP Enoch Guan APRN.MILK TRUCK DRIVER Medical Decision Making: Problems: Moderate: New problem with uncertain prognosis Data: Unique test(s) ordered: 2 Risk: Moderate: Drug management Medical Decision Making Level: 4 - Moderate Allergies As of Date: 04/06/2024 Noted Allergy Reaction CLINDOMYCIN (CLINDAMYCIN) 07/10/2009 12 - Shortness of Breath PENICILLINS 11/30/2004 12 - Shortness of Breath Date Reviewed: 04/06/2024 Reviewed by: Lucho Tay (more content not included)... Normal [facility] UA DIP, URINE (POC)on 2024 BILIRUBIN UA (POCT) Negative Negative [facility] CLARITY UA (POCT) Clear [facility] COLOR UA (POCT) Yellow [facility] GLUCOSE UA (POCT) Negative Negative mg/dL [facility] Hemoglobin Ql (U) Moderate Abnormal Negative [facility] Interpretation and review of laboratory results Abnormal [facility] KETONE UA (POCT) Negative Negative mg/dL [facility] LEUKOCYTES UA (POCT) Small Abnormal Negative [facility] [facility]) [facility] ([facility]) 6.0 4.5 - 8.0 [facility] Protein Ql (U) >=300 Abnormal Negative mg/dL [facility] SPECIFIC GRAVITY UA (POCT) >=1.030 1.005 - 1.030 [facility] UROBILINOGEN UA (POCT) 1.0 Yris l E.U./dL [facility] Location:[address], [place], [place], [id number] [place] [address] POINT OF CARE [facility] CNOVon 12-02-2023 CNOV Office Visit (UCWSTR ) JACLYN MAE ([id number]) 1980 F Date Time Provider Department 12/02/23 7:30 PM JENI ANDINO [facility] During your visit today, we recorded the following information about you: Temperature Pulse Respiration Blood pressure 98.2 degrees 94/minute 16/minute 110/68 Weight 69.1 kg Jeni Andino APRN.MILK TRUCK DRIVER 12/02/2023 7:49 PM Signed [facility] CARE PATIENT INFO SKIN INFECTION OVERVIEW Cellulitis is an infection of the skin and soft tissue of the skin. The infection is usually caused by bacteria that normally live on the skin, such as staphylococci (Staph) or streptococci (Strep). The infection develops when there is a break in the skin, such as a wound or injury, which may be minor. This allows bacteria to enter the skin and grow, causing infection and swelling. Most cases of cellulitis are mild and heal completely with antibiotic treatment. However, the infection can become severe and cause a bodywide infection if left untreated. It is important to seek medical care promptly if you could have a skin infection. SKIN INFECTION RISK FACTORS Certain conditions increase the risk of developing cellulitis. These include: Recent injury to the skin (a wound, abrasion, cut, recent shaving, or injection drug use) Swelling of the skin due to radiation therapy Current skin infection, such as athlete's foot or impetigo Accumulation of fluid (edema) due to poor circulation, heart failure, liver disease, or past surgery to remove lymph nodes Being overweight Chronic skin conditions, such as eczema or psoriasis However, cellulitis can also develop in people who have no known risk factors. SKIN INFECTION SYMPTOMS Cellulitis -- The most common symptom of cellulitis is pain or tenderness. Other cellulitis symptoms can include swelling, warmth, and redness in a distinct area of skin. These symptoms usually worsen and the redness may expand over the course of a few days. The skin is usually smooth and shiny rather than raised or bumpy. Fever and chills are not common. The most common areas of the body for cellulitis to develop include the legs and the arms; it can also develop around the eye, on the abdominal wall, in the mouth, and around the anus. Other skin infections -- Other types of skin infections include abscesses, furuncles (boils), and carbuncles. These usually cause a collection of pus under the skin. Skin that is raised, reddened, tender, and pus-filled may be caused by a skin infection known as methicillin-resistant Staphylococcus aureus (MRSA). DO I NEED TO BE EXAMINED? There are many types and causes of skin infections, and it is important to know the most likely cause of the infection before beginning treatment. Using the wrong treatment could allow the infection to worsen. To ensure that the correct treatment is used, it is important to be evaluated by a healthcare provider. SKIN INFECTION TREATMENT Cellulitis treatment includes antibiotics as well as treatment of any underlying condition that led to the skin infection. Elevate the area -- Elevating the arm or leg above the level of the heart can help to reduce swelling and speed healing. Keep the area clean and dry -- It is important to keep the infected area clean and dry. You can shower or bathe normally, and pat the area dry with a clean towel. You can use a bandage or gauze to protect the skin, if needed. Do not use any antibiotic ointments or creams. Antibiotics -- Most people with cellulitis are treated with an antibiotic that is taken by mouth for one to two weeks. The best antibiotic depends upon your situation. If the infection is severe, you may need to be hospitalized and treated with antibiotics given into a vein (IV). It is important to take the antibiotic exactly as recommended and to finish the entire course of treatment. Skipping doses or ending treatment early could potentially allow the bacteria to become resistant and require longer treatment. Time to heal -- The swelling, warmth, and redness should begin to improve within one to three days after starting antibiotics, although these symptoms can persist for two weeks. If the reddened area becomes larger, more swollen, or more tender, call your healthcare provider. He or she may want to reexamine you to determine if further testing or an alternate antibiotic are needed. SKIN INFECTION PROGNOSIS In most cases, you will recover completely from an episode of cellulitis without any complications. If you have skin infection risk factors talk to your healthcare provider to determine if there are steps you can take to minimize the risk of infections in the future. Jeni Andino APRN.MILK TRUCK DRIVER 12/02/2023 7:54 PM Signed This note was created using FunCaptchariter. Subjective Jaclyn Mae is a 43 year old female. Patient presents bug bite on ri (more content not included)... Normal [facility] Gun Fitter Office Visit Reporton 12-02-2023 Gun Fitter Office Visit Report [facility]'s [address], [address] [place] [address] OFFICE VISIT Date of Service: 12/02/23 MR#: [id number] Acct: [id number] Name: JACLYN MAE Rep #: [id number] : 1980 Provider: Dr. Janine tapia MD Age/Sex: 43/F Location: [facility] Status: Signed Intake Vital Signs 10/11/23 20:31 10/15/23 13:31 12/02/23 14:13 12/02/23 14:19 Height 5 ft 7 in 5 ft 7 in 5 ft 7 in 5 ft 7 in Weight: 151 lb BMI 23.6 BP 122/81 H Pulse 89 Intake Visit Reasons: Weight Check Pipe Line Gauger Required: No Is patient in pain?: No Allergies ampicillin Allergy (Verified 12/02/23 14:14) Itching Fish Containing Products Allergy (Verified 12/02/23 14:14) Shortness of breath Penicillins (PCN) Allergy (Verified 12/02/23 14:14) Shortness of breath clindamycin Adverse Reaction (Verified 12/02/23 14:14) Pain in joints Medications ???Medication ???Instructions ???Recorded ???Confirmed ???Type citalopram 40 mg tablet 40 mg PO DAILY depression #90 tabs 08/15/21 12/02/23 Rx albuterol sulfate 90 mcg/actuation 2 puff inhalation Q4H PRN 04/23/23 12/02/23 Rx aerosol inhaler shortness of breath or wheezing #1 ea budesonide-formoterol HFA 160 2 puff inhalation BID #10.2 grams 04/23/23 12/02/23 Rx mcg-4.5 mcg/actuation aerosol inhaler (Symbicort) cetirizine 10 mg capsule 10 mg PO HS #90 caps 04/23/23 12/02/23 Rx epinephrine 0.3 mg/0.3 mL 0.3 ml IM PRN as needed for 04/23/23 12/02/23 History injection, auto-injector allergic reaction fluticasone propionate 50 2 spray intranasal DAILY #16 grams 04/23/23 12/02/23 Rx mcg/actuation nasal spray,suspension spacer #1 ea 04/23/23 10/15/23 Rx tiotropium bromide 1.25 2 puff inhalation DAILY #4 grams 04/23/23 12/02/23 Rx mcg/actuation mist for inhalation (Spiriva Respimat) phentermine 8 mg tablet (Lomaira) 8 mg PO TID #90 tabs 12/02/23 12/02/23 Rx topiramate 50 mg tablet 50 mg PO BID #60 tabs 12/02/23 12/02/23 Rx Last Menstrual Period: 10/11/23 Zika: Zika virus screening: Negative : No PFSH PFSH Medical History Wears contact lenses MRSA infection Thyroid disease Bladder disease Anemia History of hiatal hernia History of IBS Gastric reflux Former smoker History of stress test History of echocardiogram Thyroid nodule Abnormal results of thyroid function studies Prediabetes Anxiety depression Asthma GERD (gastroesophageal reflux disease) Anxiety and depression Surgical History History of tubal ligation Hx of cholecystectomy Hx of appendectomy Family History Mother ADALBERTO III (cervical intraepithelial neoplasia grade III) with severe dysplasia Diabetes Thyroid disorder Grandmother Diabetes Thyroid disorder Other CVA (cerebral vascular accident) Kidney disease Social History (Updated 10/15/23 @ 13:41 by Radha Jimenez) adopted: No household members: family housing: house number of children: 6 current occupational status: employed current occupation: [employer] pets and animals: No history of recent travel: No Smoking Status: Former smoker second hand exposure: No alcohol intake: never substance use type: does not use caffeine: No what type of physical activity do you participate in: walking, bicycling and weight training frequency: 3-4 times per week seatbelt use: always do you feel safe at home: Yes additional social history: Boyfriend- Chaz History 6 Elective abortions Hx Para 6 Spontaneous abortions Hx # Term Pregnancies Ectopic pregnancies Hx # Pregnancies Multiple births # of living children 6 Past Pregnancies Del. Date Name GA/Weeks Outcome Route Bth Weight Infant Gen Labor Lgth Anesthesia Del Locatn Provider FOB Unknown 2001- Guillermo 38 live - full term 8lbs 1oz Male none [employer] Bell Unknown severo- 2004 39 live - full term 7lbs 4oz Female epidural [employer] AISSATOU Unknown 2006- Annie 39 live - full term 7LBS 14OZ Female epidural [facility] JOSÉ MANUEL Unknown 2011- Barney 37 live - full term 8LBS 7OZ Male epidural [employer] ANMARESHIMA Unknown 2012- Bunny 38 live - full term 9LBS 12OZ Male none [employer] JOSÉ MANUEL 01/04/20 [place] 37 live - full term Female epidural [employer] SE M Delivery Date: Last Updated by: Vielka Conde labor at 32 weeks Delivery Date: Last Updated by: Vielka Conde NO COMPLICATIONS Delivery Date: Last Updated by: Vielak Conde IOL- OLIGO Delivery Date: Last Updated by: Vielka Conde LABOR AT 32 WEEKS, WENT TO [facility], IOL OLIGO (more content not included)... Normal [facility] Thyroidon 10-30-2023 Thyroid [facility] Imaging Services [address] [place] [address] Thyroid MR#: [id number] Acct: [id number] Name: JACLYN MAE Rep #: [id number] : 1980 F 43 From: Morteza Fritz MD PCP: Dr. Michael Aguirre DO Status: REG CLI Study: Thyroid Date of Exam: 10/30/23 Exam# [id number] Ordering Dr: Xochilt Rutherford [id number] STUDY: THYROID ULTRASOUND REASON FOR EXAM: Female, 43 years old. re-eval right nodule TECHNIQUE: Ultrasound evaluation of the thyroid was performed with real-time and static garcia-scale imaging. COMPARISON: 09/27/2021 FINDINGS: RIGHT LOBE: The right lobe of the thyroid gland measures 4.6 x 1.2 x 1.2 cm. There is a homogeneous echotexture. Nodule 1: No change in the 5 x 5 x 4 mm mixed cystic and solid isoechoic wider than tall ill-defined margin nodule and no echogenic foci (TR 2) in the mid right lobe consistent with a tiny adenoma. LEFT LOBE: The left lobe of the thyroid gland measures 4.4 x 1.2 x 1.3 cm. There is a homogeneous echotexture. There are no demonstrated solid, cystic or complex lesions. ISTHMUS: The isthmus measures 2 mm thick. . The regional lymph nodes are normal. US/Thyroid IMPRESSION: Essentially normal thyroid ultrasound with no change in a tiny adenoma in the right lobe. Electronically Signed: Morteza Fritz MD at 10:48 EDT , CC: SONIYA Rutherford; Dr. Michael Aguirre DO Manager Embalmer Funeral Director: Signed Normal [facility] Comprehensive Metabolic Prof [facility] 10-17-2023 Albumin [Mass/Vol] 3.7 g/dL Normal 3.2-5.0 [facility] Comment on above: Performed By: #### L 500.4050 ####[facility] [address] [place], [address] Albumin/Globulin [Mass ratio] 1.1 {ratio} Normal 0.9-2.4 [facility] Comment on above: Performed By: #### L 500.4050 ####[facility] [address] [place], [address] ALK P 78 U/L Normal 45-117 [facility] Comment on above: Performed By: #### L 500.4050 ####[facility] [address] [place], [address] ALT [Catalytic activity/Vol] 30 U/L Normal 13-56 [facility] Comment on above: Performed By: #### L 500.4050 ####[facility] [address] [place], [address] AST [Catalytic activity/Vol] 22 U/L Normal 15-37 [facility] Comment on above: Performed By: #### L 500.4050 ####[facility] [address] [place], [address] Bilirubin [Mass/Vol] 0.20 mg/dL Normal 0.20-1.00 [facility] Comment on above: Result Comment: For patients on eltrombopag therapy, use of Dimension [place] TBIL is not recommended. Performed By: #### L 500.4050 ####[facility] [address] [place], [address] BUN/CRE 21.0 RATIO High 10-20 [facility] Comment on above: Performed By: #### L 500.4050 ####[facility] [address] [place], [address] CA,Total 8.6 mg/dL Normal 8.5-10.1 [facility] Comment on above: Performed By: #### L 500.4050 ####[facility] [address] [place], [address] Chloride [Moles/Vol] 111 mmol/L High 98-107 [facility] Comment on above: Performed By: #### L 500.4050 ####[facility] [address] [place], [address] CO2 [Moles/Vol] 25.0 mmol/L Normal 21.0-32.0 [facility] Comment on above: Performed By: #### L 500.4050 ####[facility] [address] [place], [address] Creatinine [Mass/Vol] 0.90 mg/dL Normal 0.55-1.[address] [facility] Comment on above: Result Comment: The validity of the calculated GFR GFRAA in patients over 70 years has not been determined. Clinical correlation is essential. Performed By: #### L 500.4050 ####[facility] [address] [place], [address] EST GFR - AA 88 mL/min Normal >60 [facility] Comment on above: Result Comment: Afri can Palauan GFR Calc Performed By: #### L 500.4050 ####[facility] [address] [place], [address] GAP 5 Normal 5-15 [facility] Comment on above: Performed By: #### L 500.4050 ####[facility] [address] [place], [address] GFR/1.73 sq M.predicted among non-blacks MDRD (S/P/Bld) [Vol rate/Area] 73 mL/min/{1.73_m2} Normal >60 [facility] Comment on above: Result Comment: Non- GFR Calc Performed By: #### L 500.4050 ####[facility] [address] [place], [address] Globulin (S) [Mass/Vol] 3.5 g/dL Normal 2.2-4.2 [facility] Comment on above: Performed By: #### L 500.4050 ####[facility] [address] [place], [address] Glucose [Mass/Vol] 76 mg/dL Normal 74-106 [facility] Comment on above: Performed By: #### L 500.4050 ####[facility] [address] [place], [address] Potassium [Moles/Vol] 3.5 mmol/L Normal 3.5-5.[address] [facility] Comment on above: Performed By: #### L 500.4050 ####[facility] [address] [place], [address] Sodium [Moles/Vol] 141 mmol/L Normal 136-145 [facility] Comment on above: Performed By: #### L 500.4050 ####[facility] [address] [place], [address] T PROT 7.2 g/dL Normal 6.4-8.2 [facility] Comment on above: Performed By: #### L 500.4050 ####[facility] [address] [place], [address] Urea nitrogen [Mass/Vol] 19 mg/dL High 7-18 [facility] Comment on above: Performed By: #### L 500.4050 ####[facility] [address] [place], [address] Bacteria identified Respirat ory culture Nom (Unsp spec)Ordered By: Gregorio Ramos on 07-19-2023 Respiratory Culture Staphylococcus aureus [facility] Gram stain for investigation of transfusion reactionOrdered By: Gregorio Ramos on 04-27-2024 Microscopic observation Gram stain Nom (Unsp spec) [facility] CNOVon 07-07-2023 CNOV Office Visit (UCWSTR ) JACLYN MAE ([id number]) 1980 F Date Time Provider Department 07/07/23 6:15 PM ANGELA MATUTE [facility] During your visit today, we recorded the following information about you: Temperature Pulse Respiration Blood pressure 98.6 degrees 112/minute 18/minute 122/80 Weight 73.5 kg Angela Matute PA-C 07/07/2023 6:50 PM Signed This note was created using CompareNetworkster. Subjective Jaclyn Mae is a 42 year old female. HPI Patient presents with cough and chest congestion for 2 days. Her daughter has been sick with cold symptoms for 3 days. She denies a fever. She feels like she has had to use her albuterol inhaler more frequently. She also takes Spiriva and is on Singulair for asthma. Denies being a smoker. She denies chest pain. She states her ears have been itchy. Denies sore throat or runny nose. No chest pain. Review of Systems Constitutional: Negative. HENT: Negative for congestion, ear pain, rhinorrhea and sore throat. Respiratory: Positive for cough and wheezing. Negative for shortness of breath. Cardiovascular: Negative. Gastrointestinal: Negative. Genitourinary: Negative. Musculoskeletal: Negative. All other systems reviewed and are negative. PAST MEDICAL HISTORY Diagnosis Date Abdominal pain, epigastric Acute gastritis without mention of hemorrhage Anemia Anxiety disorder in conditions classified elsewhere Chronic cholecystitis FRACTURE AGE 10 WRIST,FALL ON ICE GERD (gastroesophageal reflux disease) Helicobacter pylori (H. pylori) Insertion of IUD 05/17/2009 Paragard Fell out 01/31/11 Nonspecific elevation of levels of transaminase or lactic acid dehydrogenase (LDH) hemorrhage WITH LAST Varicosities Current Outpatient Medications Medication Sig Dispense Refill montelukast (SINGULAIR) 10 mg tablet Phentermine HCl 37.5 mg tablet Take 37.5 mg by mouth daily before breakfast. albuterol HFA (PROVENTIL HFA, VENTOLIN HFA) 90 mcg/actuation inhaler Inhale 2 Puffs as instructed every 4 hours as needed for wheezing/shortness of breath. [address] (PROTONIX) 40 mg tablet Take 1 tablet by mouth daily before breakfast. Take on empty stomach, 1/2 hr before meal. 30 tablet 11 citalopram (CELEXA) 40 mg tablet Take 1 tablet by mouth once daily. 90 tablet 3 albuterol HFA (VENTOLIN HFA) 90 mcg/actuation inhaler Inhale 2 Puffs as instructed every 4 hours as needed. 1 Inhaler 0 fluticasone (FLOVENT HFA) 110 mcg/actuation inhaler Inhale 1 Puff as instructed twice daily. 1 Inhaler 5 EPINEPHrine (EPIPEN) 0.3 mg/0.3 mL (1:1,000) atIn Inject intramuscularly. use as directed for allergic reaction. Seek emergent medical care immediately after use. 1 Each 3 topiramate (TOPAMAX) 50 mg tablet take 50 mg orally twice a day; take before breakfast and before dinner, take ONE-HALF tab TWICE DAILY TIME two weeks then full tab TWICE DAILY SPIRIVA RESPIMAT 1.25 mcg/actuation inhaler inhale 2 (TWO) puffs BY MOUTH EVERY DAY predniSONE (DELTASONE) 20 mg tablet Take 2 tablets by mouth once daily for 5 days. 10 tablet 0 benzonatate (TESSALON PERLES) 100 mg capsule Take 2 capsules by mouth three times a day as needed. 30 capsule 0 diclofenac (VOLTAREN) 1 % topical gel Apply 2 g to affected area four times daily. (Patient not taking: Reported on 12/17/2022) 100 g 0 No current facility-administered medications for this visit. 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 [place] DILATION AND CURETTAGE DXAND/THER NONOBSTETRIC 2005 Dilation AND curettage, EGD TRANSORAL BIOPSY SINGLE/MULTIPLE 05/22/07 INSERT INTRAUTERINE DEVICE 11/2006 Mirena, Removed 05/17/2009 IUD INSERTION (FORMING MACHINE ADJUSTER DEPT)_*FL 05/17/2009 Paragard LAPS SURG CHOLECYSTECTOMY W/CHOLANGIOGRAPHY 04/08/08 FAMILY HISTORY Problem Relation Age of Onset Arthritis Father Hypertension Father Lipids Father Arthritis Maternal Grandmother Diabetes Maternal Grandmother Diabetes Maternal Grandfather Heart Paternal Grandmother Psychiatry Paternal Grandfather Diabetes Paternal Grandfather Prostate Cancer Paternal Grandfather Heart Paternal Uncle other (ADD) Daughter other (ADHD) Son Social History Tobacco Use Smoking status: Former Types: Cigarettes Quit date: 12/17/2005 Years since quittin.5 Smokeless tobacco: Never Tobacco comments: quit one year ago Substance Use Topics Alcohol use: Yes Comment: Seldom, NOT DURING Drug use: No Objective BP 122/80 Pulse 112 Temp 37 ?C (98.6 ?F) Resp 18 Wt 73.5 kg (162 lb 0.6 oz) LMP 06/05/2021 SpO2 99% BMI 26.15 kg/m? Physical Exam Vitals reviewed. Constitutional: Appearance: Normal appearance. HENT: Head: Normocephalic and atraumatic. Nose: Nose normal. Mouth/Throat: Mouth: Mucous membrane (more content not included)... Normal [facility] Atypical P-ANCA titerOrdered By: eTrri Mazariegos on 04-23-2023 Neutrophil cytoplasmic Ab.perinuclear.atypical IF (S) [Titer] 1:80 titer Neg:<1:20 [facility] Comment on above: The atypical pANCA p attern has been observed in asignificant percentage of patients with ulcerative colitis,primary sclerosing cholangitis and autoimmune hepatitis. Basophil percentageOrdered B y: Terri Mazariegos on 04-23-2023 Basophil percentage < 10.0 IU/mL <[address] [facility] - Serology - non- microOrdered By: Terri Mazariegos on 04-23-2023 Sjogrens syndrome-B extractable nuclear IgG Qn (S) Not Reportable [facility] No Panel InformationOrdered By: Terri Mazariegos on 04-23-2023 Anti-Nuclear Antibody Screen Negative Negative [facility] Comment on above: Performed at: [address] [id number] Director: Madhu Carrion PhD, Phone: [phone] Centrome[employer] B Antibody Not Reportable [facility] APARNA-1 Antibody Not Reportable [facility] MEDICAL ASSISTING PROGRAM DIRECTOR Antibody Not Reportable [facility] Serum DNA double strand anti body assay (units/volume)Ordered By: Terri Mazariegos on 04-23-2023 DNA double strand Ab Qn (S) Not Reportable [facility] Serum Scl-70 antibody assay (units/volume)Ordered By: Terri Mazariegos on 04-23-2023 SCL-70 extractable nuclear Ab Qn (S) Not Reportable [facility] Serum Dominguez extractable nucl ear antibody titerOrdered By: Terri Mazariegos on 04-23-2023 Dominguez extractable nuclear Ab (S) [Titer] Not Reportable [facility] Serum classic neutrophil cyt oplasmic antibody assay (units/volume)Ordered By: Terri Mazariegos on 04-23-2023 Neutrophil cytoplasmic Ab.classic Qn (S) <1:20 titer Neg:<1:20 [facility] Serum cyclic citrullinated p eptide IgG antibody assay (units/volume)Ordered By: Terri Mazariegos on 04-23-2023 Cyclic citrullinated peptide IgG Qn 7 units 0-19 [facility] Comment on above: Negative <20 Weak po sitive 20 - 39 Moderate positive 40 - 59 Strong positive >59Performed at: [facility] [id number] Director: Madhu Carrion PhD, Phone: [phone] Serum perinuclear neutrophil cytoplasmic antibody titer by immunofluorescenceOrdered By: Terri Mazariegos on 04-23-2023 Neutrophil cytoplasmic Ab.perinuclear IF (S) [Titer] <1:20 titer Neg:<1:20 [facility] Comment on above: The presence of posi tive fluorescence exhibiting P-ANCA orC-ANCA patterns alone is not specific for the diagnosis ofWegener's Granulomatosis (WG) or microscopic polyangiitis.Decisions about treatment should not be based solely onANCA IFA results. The [employer] ANCA Group Consensusrecommends follow up testing of positive sera with both KY-3 and MPO-ANCA enzyme immunoassays. As many as 5% serumsamples are positive only by EIA. Ref. AM J Clin [id number];111:[id number]. UA DIP, URINE (POC)on 2022 BILIRUBIN UA (POCT) Negative Negative [facility] CLARITY UA (POCT) [facility] COLOR UA ([facility]) Yellow [facility] GLUCOSE UA (POCT) Negative Negative mg/dL [facility] Hemoglobin Ql (U) Trace-intact Abnormal Negative [facility] KETONE UA (POCT) Trace Negative mg/dL [facility] LEUKOCYTES UA (POCT) Small Abnormal Negative [facility] NITRITE UA (POCT) Negative Negative [facility] PH UA (POCT) 7.0 4.5 - 8.0 [facility] Protein Ql (U) Trace Abnormal Negative mg/dL [facility] SPECIFIC GRAVITY UA (POCT) 1.020 1.005 - 1.030 [facility] UROBILINOGEN UA (POCT) 0.2 E.U./dL Yris l E.U./dL [facility] Absolute lymphocyte countOrd ered By: Janine Koch on 01-11-2023 Lymphocytes Auto (Unsp spec) [#/Vol] 2.61 10*3/uL 0.83-4.51 [facility] Basophil percentageOrdered B y: Janine Koch on 01-11-2023 Basophils/100 WBC (Bld) 0.6 % 0-1 [facility] Bilirubin [Mass/Vol] 0.30 mg/dL 0.20-1.00 [facility] Comment on above: For patients on eltr ombopag therapy, use of Dimension [place] TBIL is not recommended. Chloride [Moles/Vol] 104 mmol/L 98-107 [facility] Cholesterol [Mass/Vol] 147 mg/dL <200 [facility] Comment on above: <200 mg/dL Desirable 200-240 mg/dL Borderline >240 mg/dL High Risk Eosinophils/100 WBC (Bld) 2.5 % 0-5 [facility] Glucose [Mass/Vol] 80 mg/dL 74-106 [facility] Neutrophils (Bld) [#/Vol] 5.8 10*3/uL 2.0-7.7 [facility] Neutrophils/100 WBC (Bld) 61.6 % 47-70 [facility] Potassium [Moles/Vol] 3.7 mmol/L 3.5-5.[address] [facility] Protein [Mass/Vol] 7.4 g/dL 6.4-8.2 [facility] Sodium [Moles/Vol] 139 mmol/L 136-145 [facility] Triglyceride [Mass/Vol] 30 mg/dL <199 [facility] Comment on above: The drugs N-Acetylcy steine and Metamizole may falsely depress this assay.Serum Triglycerides Reference Interval Normal <150 mg/dL Borderline high 150 - 199 mg/dL High 200 - 499 mg/dL Very High > or = 500 mg/dL WBC (Bld) [#/Vol] 9.5 10*3/uL 4.4-11.0 [facility] Blood erythrocytes count (nu mber/volume)Ordered By: Jannie Koch on 01-11-2023 RBC (Bld) [#/Vol] 4.48 10*6/uL 4.2-5.4 [facility] Blood hemoglobin measurement (mass/volume)Ordered By: Janine Koch on 01-11-2023 Hemoglobin (Bld) [Mass/Vol] 13.4 g/dL 12.0-15.0 [facility] Blood lymphocytes/100 leukoc ytesOrdered By: Janine Koch on 01-11-2023 Lymphocytes/100 WBC (Bld) 27.6 % 19-41 [facility] Blood monocytes/100 leukocyt esOrdered By: Janine Koch on 01-11-2023 Monocytes/100 WBC (Bld) 7.3 % 0-10 [facility] Blood platelet mean volumeOr dered By: Janine Koch on 01-11-2023 Platelet mean volume (Bld) [Entitic vol] 8.9 fL 6.2-12.0 [facility] Determination of erythrocyte mean corpuscular volume (MCV)Ordered By: Janine Koch on 01-11-2023 MCV (RBC) [Entitic vol] 90.4 fL 81-99 [facility] Hematocrit Auto (Bld) [Volum e fraction]Ordered By: Janine Koch on 01-11-2023 Hematocrit (Bld) [Volume fraction] 40.5 % 37-47 [facility] Laboratory - Chemistry and C hemistry - challengeOrdered By: Janine Koch on 01-11-2023 ALP [Catalytic activity/Vol] 88 U/L 45-117 [facility] ALT [Catalytic activity/Vol] 22 U/L 13-56 [facility] CO2 [Moles/Vol] 27.0 mmol/L 21.0-32.0 [facility] Globulin (S) [Mass/Vol] 3.6 g/dL 2.2-4.2 [facility] Urea nitrogen/Creatinine [Mass ratio] 23.8 mg/mg 10-20 [facility] Laboratory - Hematology and Cell countsOrdered By: Janine Koch on 01-11-2023 Erythrocyte distribution width (RBC) [Entitic vol] 42.7 fL 35.1-43.9 [facility] Erythrocyte distribution width (RBC) [Ratio] 13.1 % 11.6-14.6 [facility] Immature granulocytes/100 WBC (Bld) 0.400 % 0.0-0.9 [facility] Comment on above: IG% - Immature Granu locytes (promyelocytes, myelocytes and metamyelocytes) > 1% indicates that a LEFT SHIFT is Present. MCH (RBC) [Entitic mass] 29.9 pg 27.0-32.0 [facility] Nucleated RBC/100 WBC (Bld) [Ratio] 0 % 0-5 [facility] MCHC Auto (RBC) [Mass/Vol]Or dered By: Janine Koch on 01-11-2023 MCHC (RBC) [Mass/Vol] 33.1 g/dL 32-[address] [facility] No Panel InformationOrdered By: Janine Koch on 01-11-2023 Estimated GFR (MDRD) Amer 109 mL/min >60 [facility] Comment on above: GFR Calc Estimated GFR (MDRD) Non-Af Amer 90 mL/min >60 [facility] Comment on above: Non- GFR Calc Vitamin D 25-Hydroxy 62.2 ng/mL [facility] Comment on above: Vitamin D 25(OH) Sta tus Range Deficiency <20 ng/mL (50nmol/L) Insufficiency 20 - 30 ng/mL (50 - 75 nmol/L) Sufficiency 30 - 100 ng/mL (75 - 250 nmol/L) Toxicity >100 ng/mL (>250 nmol/L) Platelets bldOrdered By: Jabier Koch on 01-11-2023 Platelets (Bld) [#/Vol] 372 10*3/uL 150-450 [facility] Serum or plasma albumin fredrick urement (mass/volume)Ordered By: Janine Koch on 01-11-2023 Albumin [Mass/Vol] 3.8 g/dL 3.2-5.0 [facility] Serum or plasma albumin/glob ulin mass ratioOrdered By: Janine oKch on 01-11-2023 Albumin/Globulin [Mass ratio] 1.1 {ratio} 0.9-2.4 [facility] Serum or plasma calcium fredrick urement (mass/volume)Ordered By: Janine Koch on 01-11-2023 Calcium [Mass/Vol] 8.8 mg/dL 8.5-10.1 [facility] Serum or plasma cholesterol in HDL measurement (mass/volume)Ordered By: Janine Koch on 01-11-2023 Cholesterol in HDL [Mass/Vol] 51 mg/dL >40 [facility] Comment on above: The drugs N-Acetylcy steine and Metamizole may falsely depress this assay. Reference Range HDL <40 mg/dL Low HDL Cholesterol HDL >or= 60 mg/dL High HDL Cholesterol Serum or plasma cholesterol in VLDL measurement (mass/volume)Ordered By: Janine Koch on 01-11-2023 Cholesterol in VLDL [Mass/Vol] 6 mg/dL 5-40 [facility] Serum or plasma creatinine m easurement (mass/volume)Ordered By: Janine Koch on 01-11-2023 Creatinine [Mass/Vol] 0.76 mg/dL 0.55-1.[address] [facility] Comment on above: The validity of the calculated GFR & GFRAA in patients over 70 years has not been determined. Clinical correlation is essential. Serum or plasma low density lipoprotein (LDL) cholesterol measurement (mass/volume)Ordered By: Janine Koch on 01-11-2023 Cholesterol in LDL [Mass/Vol] 90 mg/dL 0-130 [facility] Serum or plasma urea nitroge n measurement (mass/volume)Ordered By: Janine Koch on 01-11-2023 Urea nitrogen [Mass/Vol] 18 mg/dL 7-18 [facility] Thin prep Papanicolaou smear with manual screeningOrdered By: Janine Koch on 01-11-2023 Thin prep Papanicolaou smear with manual screening 14 U/L 15-37 [facility] Thin prep Papanicolaou smear with manual screening 8 5-15 [facility] XR DIGIT GENERAL 3V FRONTAL/ LAT/OBL RIGHTon 11-28-2022 [facility] XR Finger - right AP and Lat eral and obliqueon 11-28-2022 IMPRESSION: Soft tis simón swelling in the third digit. No acute fracture seen. Manager [employer] Director: JORGE Transcribe Date/Time: Nov 28 2022 2:26P Dictated by : CHRISTOPHER KATHLEEN MD This examination was interpreted and the report reviewed and electronically signed by: CHRISTOPHER KATHLEEN MD on Nov 28 2022 2:27PM [facility] DIVISION OF RADIOLOGY * * *Final Report* * * DATE OF EXAM: Nov 28 2022 2:08PM WOX [id number] - XR DIGIT 3V FRONTAL/LAT/OBL RT / PROCEDURE REASON: Injury of finger of right hand, subsequent encounter * * * * Physician Interpretation * * * * EXAM TITLE: XR DIGIT 3V FRONTAL/LAT/OBL RT EXAM DATE/TIME: 11/28/2022 2:08 PM COMPARISON: None. CLINICAL INDICATION/HISTORY: Injury. TECHNIQUE: PA, lateral and oblique views of the third digit of the right hand are presented. FINDINGS: No acute fractures or subluxations are noted. The joint spaces are well preserved. The mineralization of the bones is normal. There is soft tissue swelling. DIVISION [facility] RADIOLOGY [facility] * * *Final Report* * * DATE OF EXAM: Nov 28 2022 2:08PM WOX [id number] - XR DIGIT 3V FRONTAL/LAT/OBL RT / PROCEDURE REASON: Injury of finger of right hand, subsequent encounter * * * * Physician Interpretation * * * * EXAM TITLE: XR DIGIT 3V FRONTAL/LAT/OBL RT EXAM DATE/TIME: 11/28/2022 2:08 PM COMPARISON: None. CLINICAL INDICATION/HISTORY: Injury. TECHNIQUE: PA, lateral and oblique views of the third digit of the right hand are presented. FINDINGS: No acute fractures or subluxations are noted. The joint spaces are well preserved. The mineralization of the bones is normal. There is soft tissue swelling. IMPRESSION IMPRESSION: Soft tissue swelling in the third digit. No acute fracture seen. Manager [employer] Director: JORGE Transcribe Date/Time: Nov 28 2022 2:26P Dictated by : CHRISTOPHER KATHLEEN MD This examination was interpreted and the report reviewed and electronically signed by: CHRISTOPHER KATHLEEN MD on Nov 28 2022 2:27PM EST [facility] Radiology Study observation (narrative) [facility] XR Finger - right AP and Lat eral and obliqueOrdered By: Ccf Provider on 11-28-2022 [facility] CNPNon 11-26-2022 CNPN Telephone (RHBATH) JACLYN MAE ([id number]) 1980 F Date Time Provider Department 11/26/22 CASSANDRA AGUSTIN [facility] During your visit today, we recorded the following information about you: Irving Kent 11/26/2022 2:27 PM Signed No Show Documentation Jaclyn Mae no showed for an appointment on [id number] with Cassandra Agustin MD at [facility]. She was scheduled for 0. I called and spoke with the patient regarding her missed appointment. Jaclyn stated the reason that she missed her appointment was because forgot about appointment . Resources discussed/offered to patient: LM No show determined to be fault of patient: Yes This is the patients first no show in the last 12 months. Patient was rescheduled for no. Letter mailed : Yes Is this the Third or Fourth No Show? No Irving Kent November 26, 2022 2:14 PM Allergies As of Date: 11/26/2022 Noted Allergy Reaction CLINDOMYCIN (CLINDAMYCIN) 07/10/2009 12 - Shortness of Breath PENICILLINS 11/30/2004 12 - Shortness of Breath Date Reviewed: 11/18/2022 Reviewed by: Kay Ceron MA - Fully Assessed Reason for Visit: No Show [1558] Prescriptions as of 11/26/2022 - albuterol HFA (PROVENTIL HFA, VENTOLIN HFA) 90 mcg/actuation inhaler Inhale 2 Puffs as instructed every 4 hours as needed for wheezing/shortness of breath. - benzonatate (TESSALON PERLE) 100 mg capsule Take 1-2 capsules tid prn, no more than 6 in 24 hours. - guaiFENesin (MUCINEX) 600 mg 12 hr tablet Take 2 tablets by mouth twice daily. - Drospirenone-Ethinyl Estradiol 3-0.03 mg per tablet Take 1 tablet by mouth once daily. - HYDROcodone-acetaminoph en (NORCO) 5-325 mg per tablet - HYDROcodone-Acetaminoph en (HYCET) 7.5-325 mg/15 mL oral liquid - ketotifen fumarate (ZADITOR) 0.025 % (0.035 %) ophthalmic solution - dicyclomine (BENTYL) 10 mg capsule Take 1 capsule by mouth before meals and at bedtime. - pantoprazole DR (PROTONIX) 40 mg tablet Take 1 tablet by mouth daily before breakfast. Take on empty stomach, 1/2 hr before meal. - citalopram (CELEXA) 40 mg tablet Take 1 tablet by mouth once daily. - albuterol HFA (VENTOLIN HFA) 90 mcg/actuation inhaler Inhale 2 Puffs as instructed every 4 hours as needed. - fluticasone (FLOVENT HFA) 110 mcg/actuation inhaler Inhale 1 Puff as instructed twice daily. - LORazepam (ATIVAN) 0.5 mg tab Take 1 tablet by mouth three times daily as needed (anxiety). - EPINEPHrine (EPIPEN) 0.3 mg/0.3 mL (1:1,000) atIn Inject intramuscularly. use as directed for allergic reaction. Seek emergent medical care immediately after use. 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] 11/17/2006 Pain in joint, lower leg [M25.569] 11/17/2006 07/12/2011 Allergy to seafood [Z91.013] 12/16/2006 07/06/2012 Eating disorder, unspecified [F50.9] 03/27/2007 07/12/2011 Calculus of GB w/ other cystitis [K80.10] 04/13/2007 07/12/2011 Iron deficiency anemia, unspecified [D50.9] 04/15/2007 07/12/2011 Acute gastritis without mention of hemorrhage [*05/22/2007 08/28/2011 Abdominal pain, epigastric [R10.13] 05/22/2007 07/12/2011 Herpes simplex without mention of complication *10/27/2007 Depressive disorder, not elsewhere classified [*01/04/2010 Carpal tunnel syndrome on right [G56.01] 01/04/2010 07/12/2011 Panic attacks [F41.0] 07/19/2010 Supervision of other normal [Z34.80] 08/07/2011 04/10/2012 Rh negative status during [O26.899, Z*08/07/2011 04/10/2012 FHx: cleft palate [Z82.79] 08/07/2011 07/06/2012 GBS (group B streptococcus) UTI complicating pr*10/18/2011 04/10/2012 First trimester bleeding [O20.9] 05/25/2012 07/06/2012 Nausea and vomiting in [O21.9] 05/25/2012 07/06/2012 History of labor [Z87.51] 05/25/2012 06/12/2017 Family history of defects [Z82.79] 05/25/2012 Rh negative status during [O26.899, Z*05/25/2012 06/12/2017 Patient requested diagnostic testing [Z01.89] 05/25/2012 Varicose veins [I83.90] 05/25/2012 History of hemorrhage, currently pre*05/25/2012 06/12/2017 Inguinal hernia [K40.90] 10/27/2012 Letter Text Encounter Status:Closed by IRVING KENT on 9/5/23 [facility] UA DIP, URINE (POC)on 2022 BILIRUBIN UA (POCT) Negative Negative [facility] CLARITY UA (POCT) Cloudy [facility] COLOR UA (POCT) Yellow [facility] GLUCOSE UA (POCT) Negative Negative mg/dL [facility] Hemoglobin Ql (U) Negative Negative [facility] KETONE UA (POCT) 40 mg/dL Abnormal Negative mg/dL [facility] LEUKOCYTES UA (POCT) Negative Negative [facility] NITRITE UA (POCT) Negative Negative [facility] PH UA (POCT) 7.0 4.5 - 8.0 [facility] Protein Ql (U) Trace Abnormal Negative mg/dL [facility] SPECIFIC GRAVITY UA (POCT) 1.015 1.005 - 1.030 [facility] UROBILINOGEN UA (POCT) 1.0 E.U./dL Yris l E.U./dL [facility] XR DIGIT GENERAL 3V FRONTAL/ LAT/OBL RIGHTon 11-18-2022 [facility] XR Finger - right AP and Lat eral and obliqueon 11-18-2022 IMPRESSION: Soft tis simón swelling in the third digit. No acute fracture seen. Manager [employer] Director: PSCB Transcribe Date/Time: Nov 18 2022 3:09P Dictated by : CHRISTOPHER KATHLEEN MD This examination was interpreted and the report reviewed and electronically signed by: CHRISTOPHER KATHLEEN MD on Nov 18 2022 3:16PM [facility] DIVISION OF RADIOLOGY * * *Final Report* * * DATE OF EXAM: Nov 18 2022 3:07PM WOX [id number] - XR DIGIT 3V FRONTAL/LAT/OBL RT / PROCEDURE REASON: Injury of right middle finger, initial encounter * * * * Physician Interpretation * * * * EXAM TITLE: XR DIGIT 3V FRONTAL/LAT/OBL RT EXAM DATE/TIME: 11/18/2022 3:07 PM COMPARISON: None. CLINICAL INDICATION/HISTORY: Injury. TECHNIQUE: PA, lateral and oblique views of the third digit of the right hand are presented. FINDINGS: No acute fractures or subluxations are noted. The joint spaces are well preserved. The mineralization of the bones is normal. There appears to be soft tissue swelling. DIVISION OF RADIOLOGY Provider, Love Stewart - 11/18/2022 * * *Final Report* * * DATE OF EXAM: Nov 18 2022 3:07PM WOX [id number] - XR DIGIT 3V FRONTAL/LAT/OBL RT / PROCEDURE REASON: Injury of right middle finger, initial encounter * * * * Physician Interpretation * * * * EXAM TITLE: XR DIGIT 3V FRONTAL/LAT/OBL RT EXAM DATE/TIME: 11/18/2022 3:07 PM COMPARISON: None. CLINICAL INDICATION/HISTORY: Injury. TECHNIQUE: PA, lateral and oblique views of the third digit of the right hand are presented. FINDINGS: No acute fractures or subluxations are noted. The joint spaces are well preserved. The mineralization of the bones is normal. There appears to be soft tissue swelling. IMPRESSION IMPRESSION: Soft tissue swelling in the third digit. No acute fracture seen. Manager [employer] Director: JORGE Transcribe Date/Time: Nov 18 2022 3:09P Dictated by : CHRISTOPHER KATHLEEN MD This examination was interpreted and the report reviewed and electronically signed by: CHRISTOPHER KATHLEEN MD on Nov 18 2022 3:16PM EST [facility] Radiology Study observation (narrative) [facility] XR Finger - right AP and Lat eral and obliqueOrdered By: Ccf Provider on 11-18-2022 [facility] Atypical perinuclear antineu trophil cytoplasmic antibodies measurementOrdered By: Terri Mazariegos on 10-02-2022 Neutrophil cytoplasmic Ab.perinuclear.atypical IF (S) [Titer] 1:40 titer Neg:<1:20 [facility] Comment on above: The atypical pANCA p attern has been observed in asignificant percentage of patients with ulcerative colitis,primary sclerosing cholangitis and autoimmune hepatitis. Basophil percentageOrdered B y: Terri Mazariegos on 10-02-2022 Basophil percentage < 0.2 AI 0.0-0.9 [facility] Laboratory - Chemistry and C hemistry - challengeOrdered By: Hector Alvarez on 10-02-2022 Free T4 [Mass/Vol] 1.04 ng/dL 0.76-1.46 [facility] No Panel InformationOrdered By: Terri Mazariegos on 10-02-2022 Centromere B Antibody <0.2 AI 0.0-0.[address] [facility] MEDICAL ASSISTING PROGRAM DIRECTOR Antibody 0.7 AI 0.0-0.9 [facility] No Panel InformationOrdered By: Hector Alvarez on 10-02-2022 Thyroid Stimulating Hormone (TSH) 1.52 uIU/mL 0.358-3.74 [facility] Serum DNA double strand anti body assay (units/volume)Ordered By: Terri Mazariegos on 10-02-2022 DNA double strand Ab Qn (S) [IU]/mL 0-9 [facility] Comment on above: Negative <5 Equivoca l 5 - 9 Positive >9 Serum Aparna-1 antibody assay (u nits/volume)Ordered By: Terri Mazariegos on 10-02-2022 Aparna-1 extractable nuclear Ab Qn (S) <0.2 AI 0.0-0.9 [facility] Serum Scl-70 extractable nuc lear antibody assay (units/volume)Ordered By: Terri Mazariegos on 10-02-2022 SCL-70 extractable nuclear Ab Qn (S) <0.2 AI 0.0-0.9 [facility] Serum Dominguez extractable nucl ear antibody detectionOrdered By: Terri Mazariegos on 10-02-2022 Dominguez extractable nuclear Ab Ql (S) <0.2 AI 0.0-0.9 [facility] Serum classic neutrophil cyt oplasmic antibody assay (units/volume)Ordered By: Terri Mazariegos on 10-02-2022 Neutrophil cytoplasmic Ab.classic Qn (S) <1:20 titer Neg:<1:20 [facility] Serum cyclic citrullinated p eptide IgG antibody assay (units/volume)Ordered By: Terri Mazariegos on 10-02-2022 Cyclic citrullinated peptide IgG Qn 3 units 0-19 [facility] Comment on above: Negative <20 Weak po sitive 20 - 39 Moderate positive 40 - 59 Strong positive >59Performed at: - [facility] [id number] Director: Madhu Carrion PhD, Phone: [phone] Serum perinuclear neutrophil cytoplasmic antibody titer by immunofluorescenceOrdered By: Terri Mazariegos on 10-02-2022 Neutrophil cytoplasmic Ab.perinuclear IF (S) [Titer] <1:20 titer Neg:<1:20 [facility] Comment on above: The presence of posi tive fluorescence exhibiting P-ANCA orC-ANCA patterns alone is not specific for the diagnosis ofWegener's Granulomatosis (WG) or microscopic polyangiitis.Decisions about treatment should not be based solely onANCA IFA results. The International ANCA Group Consensusrecommends follow up testing of positive sera with both KY-3 and MPO-ANCA enzyme immunoassays. As many as 5% serumsamples are positive only by EIA. Ref. AM J Clin Yosmty4186;111:507-513. Serum rheumatoid factor dete ctionOrdered By: Terri Mazariegos on 10-02-2022 Rheumatoid factor Ql (S) < 10.0 IU/mL <15 [facility] Culture, urineOrdered By: Samson Giraldo on 08-22-2022 Bacteria identified Cx Nom (U) Presumptive E. coli [facility] Culture, urineOrdered By: Samsno Giraldo on 08-20-2022 Bacteria identified Cx Nom (U) Presumptive E. coli [facility] Laboratory - Chemistry and C hemistry - challengeOrdered By: Dr. Alvarez on 08-20-2022 Free T4 [Mass/Vol] 0.93 ng/dL 0.76-1.46 [facility] Laboratory - Chemistry and C hemistry - challengeon 08-20-2022 Bilirubin Ql (U) Negative [facility] Glucose Ql (U) Negative [facility] Ketones Ql (U) Negative [facility] Specific gravity (U) [Rel density] 1.030 [facility] Urobilinogen (U) [Mass/Vol] Negative [facility] Laboratory - Hematology and Cell countson 08-20-2022 Hemoglobin Ql (U) Negative [facility] Laboratory - Specimen inform ationon 08-20-2022 Clarity (U) Clear [facility] Color (U) YELLOW [facility] Laboratory - Urinalysison Nitrite Ql (U) Negative [facility] Protein Ql (U) Negative [facility] No Panel InformationOrdered By: Dr. Alvarez on 08-20-2022 Thyroid Stimulating Hormone (TSH) 3.95 uIU/mL 0.358-3.74 [facility] No Panel Informationon 08-20 Urine Leukocytes Positive [facility] Urine Non-Hemolyzed Blood Negative [facility] Laboratory - Hematology and Cell countson 04-30-2022 HbA1c (Bld) [Mass fraction] 5.3 % 4.2-6.3 [facility] Thin prep Papanicolaou smear with manual screeningOrdered By: Valerie Giraldo on 04-21-2022 Genital Culture Staphylococcus aureus [facility] Gram stain for investigation of transfusion reactionOrdered By: Valerie Giraldo on 04-19-2022 Microscopic observation Gram stain Nom (Unsp spec) [facility] Laboratory - Chemistry and C hemistry - challengeOrdered By: Valerie Giraldo on 04-18-2022 Free T4 [Mass/Vol] 0.83 ng/dL 0.76-1.46 [facility] No Panel InformationOrdered By: Valerie Giraldo on 04-18-2022 Thyroid Stimulating Hormone (TSH) 3.73 uIU/mL 0.358-3.74 [facility] No Panel Informationon 04-18 POC Bacterial Vaginitis (Rapid) Negative [facility] Serum or plasma thyroperoxid ase antibody assay (units/volume)Ordered By: Valerie Giraldo on 04-18-2022 TPO Ab Qn [IU]/mL 0-34 [facility] Comment on above: Performed at: [address] Director: Madhu Carrion PhD, Phone: [phone] Serum rheumatoid factor dete ctionOrdered By: Terri Mazariegos on 04-18-2022 Rheumatoid factor Ql (S) < 10.0 IU/mL <15 [facility] Culture, urineOrdered By: Misael Rogel on 04-17-2022 Bacteria identified Cx Nom (U) Mixed Gram Pos & Gram Neg Org [facility] Absolute lymphocyte countOrd ered By: Dr. Nix on 04-16-2022 Lymphocytes Auto (Unsp spec) [#/Vol] 3.11 10*3/uL 0.83-4.51 [facility] Alternaria alternata IgE ser umOrdered By: Dr. Nix on 04-16-2022 A. alternata IgE Qn (S) <0.10 kU/L Class 0 [facility] Atypical perinuclear antineu trophil cytoplasmic antibodies measurementOrdered By: Dr. Nix on 04-16-2022 Neutrophil cytoplasmic Ab.perinuclear.atypical IF (S) [Titer] 1:80 titer Neg:<1:20 [facility] Comment on above: The atypical pANCA p attern has been observed in asignificant percentage of patients with ulcerative colitis,primary sclerosing cholangitis and autoimmune hepatitis. Basophil percentageOrdered B y: Francisco Rogel on 04-16-2022 Basophil percentage >100 SEEN /hpf 0-5 [facility] Basophil percentageOrdered B y: Dr. Nix on 04-16-2022 Basophils/100 WBC (Bld) 0.6 % 0-1 [facility] Eosinophils/100 WBC (Bld) 3.9 % 0-5 [facility] Neutrophils (Bld) [#/Vol] 8.1 10*3/uL 2.0-7.7 [facility] Neutrophils/100 WBC (Bld) 64.2 % 47-70 [facility] WBC (Bld) [#/Vol] 12.6 10*3/uL 4.4-11.0 [facility] Bilirubin Test strip Ql (U)O rdered By: Francisco Rogel on 04-16-2022 Bilirubin Ql (U) Negative Negative [facility] Blood erythrocytes count (nu mber/volume)Ordered By: Dr. Nix on 04-16-2022 RBC (Bld) [#/Vol] 4.49 10*6/uL 4.2-5.4 [facility] Blood hemoglobin measurement (mass/volume)Ordered By: Dr. Nix on 04-16-2022 Hemoglobin (Bld) [Mass/Vol] 12.6 g/dL 12.0-15.0 [facility] Blood lymphocytes/100 leukoc ytesOrdered By: Dr. Nix on 04-16-2022 Lymphocytes/100 WBC (Bld) 24.7 % 19-41 [facility] Blood monocytes/100 leukocyt esOrdered By: Dr. Nix on 04-16-2022 Monocytes/100 WBC (Bld) 6.3 % 0-10 [facility] Blood platelet mean volumeOr dered By: Dr. Nix on 04-16-2022 Platelet mean volume (Bld) [Entitic vol] 8.9 fL 6.2-12.0 [facility] Determination of erythrocyte mean corpuscular volume (MCV)Ordered By: Dr. Nix on 04-16-2022 MCV (RBC) [Entitic vol] 86.6 fL 81-99 [facility] Hematocrit Auto (Bld) [Volum e fraction]Ordered By: Dr. Nix on 04-16-2022 Hematocrit (Bld) [Volume fraction] 38.9 % 37-47 [facility] Ketones Test strip Ql (U)Ord ered By: Frnacisco Rogel on 04-16-2022 Ketones Ql (U) 5 mg/dl Negative [facility] Laboratory - Chemistry and C hemistry - challengeon 04-16-2022 Bilirubin Ql (U) Negative [facility] Glucose Ql (U) Negative [facility] HCG ( test) Ql (U) Negative [facility] Ketones Ql (U) Negative [facility] pH (U) 6.0 [pH] [facility] Specific gravity (U) [Rel density] 1.030 [facility] Urobilinogen (U) [Mass/Vol] Negative [facility] Laboratory - Hematology and Cell countsOrdered By: Dr. Nix on 04-16-2022 Erythrocyte distribution width (RBC) [Entitic vol] 41.0 fL 35.1-43.9 [facility] Erythrocyte distribution width (RBC) [Ratio] 13.0 % 11.6-14.6 [facility] Immature granulocytes/100 WBC (Bld) 0.300 % 0.0-0.9 [facility] Comment on above: IG% - Immature Granu locytes (promyelocytes, myelocytes and metamyelocytes) > 1% indicates that a LEFT SHIFT is Present. MCH (RBC) [Entitic mass] 28.1 pg 27.0-32.0 [facility] Nucleated RBC/100 WBC (Bld) [Ratio] 0 % 0-5 [facility] - Hematology and Cell countson 04-16-2022 Hemoglobin Ql (U) Hemolyzed [facility] - Specimen inform ationon 04-16-2022 Clarity (U) Cloudy [facility] Color (U) Yellow [facility] Laboratory - Urinalysison Nitrite Ql (U) Negative [facility] Protein Ql (U) 1+ [facility] MCHC Auto (RBC) [Mass/Vol]Or dered By: Dr. Nix on 04-16-2022 MCHC (RBC) [Mass/Vol] 32.4 g/dL 32-[address] [facility] Mucus LM Ql (Urine sed)Order ed By: Francisco Rogel on 04-16-2022 Mucus Ql (Urine sed) Not Reportable [facility] Nitrite Test strip Ql (U)Ord ered By: Francisco Rogel on 04-16-2022 Nitrite Ql (U) Negative Negative [facility] No Panel InformationOrdered By: Dr. Nix on 04-16-2022 Cat Hair Allergen <0.10 kU/L Class 0 [facility] Common Ragweed (Short) Allergen <0.10 kU/L Class 0 [facility] Immunoglobulin E 25 IU/mL 6-495 [facility] Comment on above: Performed at: [facility] [address] [id number] Director: Madhu Carrion PhD, Phone: [phone] at: [facility] [address] [id number] Director: Suzanne Erickson MD, Phone: [phone] Maple (Skillman) Allergen IgE Ab <0.10 kU/L Class 0 [facility] Mouse Urine Allergen IgE Antibody <0.10 kU/L [facility] 0 [facility] Comment on above: Performed at: [facility] [address] [id number] Director: Suzanne Erickson MD, Phone: [phone] RAST Comment Comment . [facility] Comment on above: Levels of Specific I gE Class Description of Class ----- < 0.10 0 Negative 0.10 - 0.31 0/I Equivocal/Low 0.32 - 0.55 I Low 0.56 - 1.40 II Moderate 1.41 - 3.90 III High 3.91 - 19.00 IV Very High 19.01 - 100.00 V Very High >100.00 Very High [place] Tree Allergen <0.10 kU/L Class 0 [facility] No Panel Informationon 04-16 Urine Leukocytes Positive [facility] Urine Non-Hemolyzed Blood Moderate [facility] Platelets bldOrdered By: Dr. Nix on 04-16-2022 Platelets (Bld) [#/Vol] 371 10*3/uL 150-450 [facility] Protein Test strip Ql (U)Ord ered By: Francisco Rogel on 04-16-2022 Protein Ql (U) 100 mg/dl Negative [facility] Rough pigweed specific IgE a ntibody assayOrdered By: Dr. Nix on 04-16-2022 Rough Pigweed IgE Qn (S) <0.10 kU/L Class 0 [facility] Serum Palauan sycamore IgE antibody assay (units/volume)Ordered By: Dr. Nix on 04-16-2022 Palauan [place] IgE Qn (S) <0.10 kU/L Class 0 [facility] Serum Aspergillus flavus ant ibody detection by immunodiffusionOrdered By: Dr. Nix on 04-16-2022 A. flavus Ab Immune diff Ql (S) Negative Neg:<1:1 [facility] Serum Aspergillus fumigatus IgE antibody assay (units/volume)Ordered By: Dr. Nix on 04-16-2022 A. fumigatus IgE Qn (S) <0.10 kU/L Class 0 [facility] Serum Aspergillus fumigatus antibody detection by immunodiffusionOrdered By: Dr. Nix on 04-16-2022 A. fumigatus Ab Immune diff Ql (S) Negative Neg:<1:1 [facility] Serum Aspergillus niger anti body detection by immunodiffusionOrdered By: Dr. Nix on 04-16-2022 A. niger Ab Immune diff Ql (S) Negative Neg:<1:1 [facility] Serum Bermuda grass IgE anti body assay (units/volume)Ordered By: Dr. Nix on 04-16-2022 Bermuda grass IgE Qn (S) <0.10 kU/L Class 0 [facility] Serum Cladosporium herbarum IgE antibody assay (units/volume)Ordered By: Dr. Nix on 04-16-2022 C. herbarum IgE Qn (S) <0.10 kU/L Class 0 [facility] Serum Dermatophagoides farin ae specific IgE antibody assay (units/volume)Ordered By: Dr. Nix on 04-16-2022 Palauan house dust mite IgE Qn (S) <0.10 kU/L Class 0 [facility] Serum house dust mi te IgE antibody assay (units/volume)Ordered By: Dr. Nix on 04-16-2022 house dust mite IgE Qn (S) <0.10 kU/L Class 0 [facility] Serum Penicillium notatum Ig E antibody assay (units/volume)Ordered By: Dr. Nix on 04-16-2022 P. notatum IgE Qn (S) <0.10 kU/L Class [address] [facility] Serum Periplaneta americana IgE antibody assay (units/volume)Ordered By: Dr. Nix on 04-16-2022 Palauan Cockroach IgE Qn (S) <0.10 kU/L Class 0 [facility] Serum Nepalese thistle specif ic IgE antibody assayOrdered By: Dr. Nix on 04-16-2022 Saltwort IgE Qn (S) <0.10 kU/L Class 0 [facility] Serum birch specific IgE ant ibody assayOrdered By: Dr. Nix on 04-16-2022 Silver Birch IgE Qn (S) <0.10 kU/L Class 0 [facility] Serum black walnut IgE antib laurie assay (units/volume)Ordered By: Dr. Nix on 04-16-2022 Black [place] IgE Qn (S) <0.10 kU/L Class 0 [facility] Serum classic neutrophil cyt oplasmic antibody assay (units/volume)Ordered By: Dr. Nix on 04-16-2022 Neutrophil cytoplasmic Ab.classic Qn (S) <1:20 titer Neg:<1:20 [facility] Serum cottonwood IgE antibod y assay (units/volume)Ordered By: Dr. Nix on 04-16-2022 [place] IgE Qn (S) <0.10 kU/L Class [address] [facility] Serum dog epithelium IgE ant ibody assay (units/volume)Ordered By: Dr. Nix on 04-16-2022 Dog epithelium IgE Qn (S) <0.10 kU/L Class 0 [facility] Serum mountain cedar specifi c IgE antibody assayOrdered By: Dr. Nix on 04-16-2022 Mountain Juniper IgE Qn (S) <0.10 kU/L Class 0 [facility] Serum pecan or hickory nut I gE antibody assay (units/volume)Ordered By: Dr. Nix on 04-16-2022 Pecan or [place] Nut IgE Qn (S) <0.10 kU/L Class 0 [facility] Serum perinuclear neutrophil cytoplasmic antibody titer by immunofluorescenceOrdered By: Dr. Nix on 04-16-2022 Neutrophil cytoplasmic Ab.perinuclear IF (S) [Titer] <1:20 titer Neg:<1:20 [facility] Comment on above: The presence of posi tive fluorescence exhibiting P-ANCA orC-ANCA patterns alone is not specific for the diagnosis ofWegener's Granulomatosis (WG) or microscopic polyangiitis.Decisions about treatment should not be based solely onANCA IFA results. The International ANCA Group Consensusrecommends follow up testing of positive sera with both KY-3 and MPO-ANCA enzyme immunoassays. As many as 5% serumsamples are positive only by EIA. Ref. AM J Clin Ovstly6456;111:507-513. Serum sheep sorrel IgE antib laurie assay (units/volume)Ordered By: Dr. Nix on 04-16-2022 Sheep Peyton IgE Qn (S) <0.10 kU/L Class 0 [facility] Serum catina IgE antibody a ssay (units/volume)Ordered By: Dr. Nix on 04-16-2022 Catina IgE Qn (S) <0.10 kU/L Class 0 [facility] Serum white xavier IgE antibody assay (units/volume)Ordered By: Dr. Nix on 04-16-2022 White Xavier IgE Qn (S) <0.10 kU/L Class 0 [facility] Serum white elm IgE antibody assay (units/volume)Ordered By: Dr. Nix on 04-16-2022 White Elm IgE Qn (S) <0.10 kU/L Class 0 [facility] Serum white mulberry IgE ant ibody assay (units/volume)Ordered By: Dr. Nix on 04-16-2022 White mulberry IgE Qn (S) <0.10 kU/L Class 0 [facility] Squamous epithelial cells de tection in urine sediment by light microscopyOrdered By: Francisco Rogel on 04-16-2022 Epithelial cells.squamous LM Ql (Urine sed) 0-5 SEEN /hpf 5-10 [facility] Urine blood detectionOrdered By: Francisco Rogel on 04-16-2022 RBC Ql (U) 150 /ul Negative [facility] RBC Ql (U) 0 SEEN /hpf 0-5 [facility] Urine clarityOrdered By: Nehemiah Rogel on 04-16-2022 Clarity (U) Turbid Clear [facility] Urine color determinationOrd ered By: Francisco Rogel on 04-16-2022 Color (U) Yellow Yellow [facility] Urine glucose detectionOrder ed By: Francisco Rogel on 04-16-2022 Glucose Ql (U) Normal mg/dl Normal [facility] Urine leukocyte esterase det ection by dipstickOrdered By: Francisco Rogel on 04-16-2022 Leukocyte esterase Test strip Ql (U) 500 /ul Negative [facility] Urine pHOrdered By: Francisco herzog on 04-16-2022 pH (U) 5.0 [pH] 5.0 - 8.0 [facility] Urine sediment bacteria coun t by microscopy (number/high power field)Ordered By: Francisco Rogel on 04-16-2022 Bacteria LM.HPF (Urine sed) [#/Area] 3 /[HPF] None Seen [facility] Urine specific gravity measu rementOrdered By: Francisco Rogel on 04-16-2022 Specific gravity (U) [Rel density] 1.030 1.002-1.03 0 [facility] Urobilinogen Auto test strip Ql (U)Ordered By: Francisco Rogel on 04-16-2022 Urobilinogen Ql (U) 1 mg/dl Normal [facility] Absolute lymphocyte countOrd ered By: Dr. Ryan on 03-07-2022 Lymphocytes Auto (Unsp spec) [#/Vol] 4.71 10*3/uL 0.83-4.51 [facility] Basophil percentageOrdered B y: Dr. Ryan on 03-07-2022 Basophils/100 WBC (Bld) 0.4 % 0-1 [facility] Chloride [Moles/Vol] 107 mmol/L 98-107 [facility] Eosinophils/100 WBC (Bld) 2.6 % 0-5 [facility] Glucose [Mass/Vol] 100 mg/dL 74-106 [facility] Comment on above: Fasting Glucose resu lt from 100 to 125 mg/dL suggests IMPAIRED HOMEOSTASIS per A.D.A. criteria. Neutrophils (Bld) [#/Vol] 6.8 10*3/uL 2.0-7.7 [facility] Neutrophils/100 WBC (Bld) 52.9 % 47-70 [facility] Potassium [Moles/Vol] 3.2 mmol/L 3.5-5.[address] [facility] Sodium [Moles/Vol] 140 mmol/L 136-145 [facility] WBC (Bld) [#/Vol] 12.9 10*3/uL 4.4-11.0 [facility] Blood erythrocytes count (nu mber/volume)Ordered By: Dr. Ryan on 03-07-2022 RBC (Bld) [#/Vol] 4.64 10*6/uL 4.2-5.4 [facility] Blood hemoglobin measurement (mass/volume)Ordered By: Dr. Ryan on 03-07-2022 Hemoglobin (Bld) [Mass/Vol] 13.0 g/dL 12.0-15.0 [facility] Blood lymphocytes/100 leukoc ytesOrdered By: Dr. Ryan on 03-07-2022 Lymphocytes/100 WBC (Bld) 36.5 % 19-41 [facility] Blood monocytes/100 leukocyt esOrdered By: Dr. Ryan on 03-07-2022 Monocytes/100 WBC (Bld) 7.1 % 0-10 [facility] Blood platelet mean volumeOr dered By: Dr. Ryan on 03-07-2022 Platelet mean volume (Bld) [Entitic vol] 9.0 fL 6.2-12.0 [facility] Determination of erythrocyte mean corpuscular volume (MCV)Ordered By: Dr. Ryan on 03-07-2022 MCV (RBC) [Entitic vol] 88.8 fL 81-99 [facility] Hematocrit Auto (Bld) [Volum e fraction]Ordered By: Dr. Ryan on 03-07-2022 Hematocrit (Bld) [Volume fraction] 41.2 % 37-47 [facility] - Chemistry and C hemistry - challengeOrdered By: Dr. Ryan on 03-07-2022 CO2 [Moles/Vol] 27.0 mmol/L 21.0-32.0 [facility] Urea nitrogen/Creatinine [Mass ratio] 16.0 mg/mg 10-20 [facility] - Hematology and Cell countsOrdered By: Dr. Ryan on 03-07-2022 Erythrocyte distribution width (RBC) [Entitic vol] 42.7 fL 35.1-43.9 [facility] Erythrocyte distribution width (RBC) [Ratio] 13.2 % 11.6-14.6 [facility] Immature granulocytes/100 WBC (Bld) 0.500 % 0.0-0.9 [facility] Comment on above: IG% - Immature Granu locytes (promyelocytes, myelocytes and metamyelocytes) > 1% indicates that a LEFT SHIFT is Present. MCH (RBC) [Entitic mass] 28.0 pg 27.0-32.0 [facility] Nucleated RBC/100 WBC (Bld) [Ratio] 0 % 0-5 [facility] MCHC Auto (RBC) [Mass/Vol]Or dered By: Dr. Ryan on 03-07-2022 MCHC (RBC) [Mass/Vol] 31.6 g/dL 32-[address] [facility] No Panel InformationOrdered By: Dr. Ryan on 03-07-2022 D-Dimer Quantitative (PE/DVT) 0.28 FEU/ug/m 0.27-0.49 [facility] Comment on above: NORMAL D-Dimer level (<0.50) indicates no DVT or PE. Estimated Creatinine Clearance Calc 106.45 ml/min [facility] Estimated GFR (MDRD) Amer 122 mL/min >60 [facility] Comment on above: GFR Calc Estimated GFR (MDRD) Non-Af Amer 101 mL/min >60 [facility] Comment on above: Non- GFR Calc Thyroid Stimulating Hormone (TSH) 5.44 uIU/mL 0.358-3.74 [facility] Troponin I High Sensitivity < 3 pg/mL 3.0-54.0 [facility] Comment on above: Please Note: New [place] t Units and Gender Specific Reference Ranges. For more information see Policy Stat Procedure [place] High Sensitivity Troponin (TNIH) and attachments. Platelets bldOrdered By: Dr. Ryan on 03-07-2022 Platelets (Bld) [#/Vol] 433 10*3/uL 150-450 [facility] Serum or plasma calcium fredrick urement (mass/volume)Ordered By: Dr. Ryan on 03-07-2022 Calcium [Mass/Vol] 8.2 mg/dL 8.5-10.1 [facility] Serum or plasma creatinine m easurement (mass/volume)Ordered By: Dr. Ryan on 03-07-2022 Creatinine [Mass/Vol] 0.69 mg/dL 0.55-1.[address] [facility] Comment on above: The validity of the calculated GFR & GFRAA in patients over 70 years has not been determined. Clinical correlation is essential. Serum or plasma urea nitroge n measurement (mass/volume)Ordered By: Dr. Ryan on 03-07-2022 Urea nitrogen [Mass/Vol] 11 mg/dL 10-08 [facility] Thin prep Papanicolaou smear with manual screeningOrdered By: Dr. Ryan on 03-07-2022 Thin prep Papanicolaou smear with manual screening 6 08-05 [facility] UA DIP, URINE (POC)on 2021 BILIRUBIN UA (POCT) Negative Negative [facility] CLARITY UA (POCT) Clear [facility] COLOR UA (POCT) Yellow [facility] GLUCOSE UA (POCT) Negative Negative mg/dL [facility] HEMOGLOBIN/BLOOD UA (POCT) Negative Negative [facility] KETONE UA (POCT) Negative Negative mg/dL [facility] LEUKOCYTES UA (POCT) Negative Negative [facility] NITRITE UA (POCT) Negative Negative [facility] PH UA (POCT) 6.5 4.5 - 8.0 [facility] Protein Ql (U) Negative Negative mg/dL [facility] SPECIFIC GRAVITY UA (POCT) 1.025 1.005 - 1.030 [facility] UROBILINOGEN UA (POCT) 0.2 E.U./dL Yris l E.U./dL [facility] Laboratory - Microbiology an d Antimicrobial susceptibilityon 11-12-2021 SARS-CoV-2 (COVID-19) RNA RUSH+probe Ql (Unsp spec) Not detected [facility] Work Phone: Laboratory - Chemistry and C hemistry - challengeon 08-01-2021 Free T4 [Mass/Vol] 0.88 ng/dL 0.76-1.46 [facility] Work Phone: No Panel Informationon 08-01 Miscellaneous Test See comment [facility] Work Phone: Comment on above: TEST RESULT UNITS RE F INTERVALAnti-TPO Ab(RDL) <9.0 IU/mL <9.0 TESTING PERFORMED AT [facility]. ORIGINAL REPORT ON FILE IN LAB CONTAINS ADDITIONAL TEST SITE INFORMATION. Thyroglobulin Antibody < 1.0 IU/mL 0.0-0.9 [facility] Work Phone: Comment on above: Thyroglobulin Antibo dy measured by zealot networkMethodologyPerformed at: [address] [id number] Director: Madhu Carrion PhD, Phone: [phone] Thyroid Stimulating Hormone (TSH) 3.21 uIU/mL 0.358-3.74 [facility] Work Phone: Total Triiodothyronine 1.46 ng/mL 0.6-1.81 [facility] Work Phone: Serum or plasma thyroperoxid ase antibody assay (units/volume)on 08-01-2021 TPO Ab Qn [IU]/mL 0-34 [facility] Work Phone: Absolute lymphocyte counton 07-20-2021 Lymphocytes Auto (Unsp spec) [#/Vol] 2.52 10*3/uL 0.83-4.51 [facility] Work Phone: Basophil percentageon 2021 Basophils/100 WBC (Bld) 0.7 % 0-1 [facility] Work Phone: Eosinophils/100 WBC (Bld) 5.1 % 0-5 [facility] Work Phone: Neutrophils (Bld) [#/Vol] 6.2 10*3/uL 2.0-7.7 [facility] Work Phone: Neutrophils/100 WBC (Bld) 61.2 % 47-70 [facility] Work Phone: WBC (Bld) [#/Vol] 10.1 10*3/uL 4.4-11.0 [facility] Work Phone: Blood erythrocytes count (nu mber/volume)on 07-20-2021 RBC (Bld) [#/Vol] 4.53 10*6/uL 4.2-5.4 [facility] Work Phone: Blood hemoglobin measurement (mass/volume)on 07-20-2021 Hemoglobin (Bld) [Mass/Vol] 12.7 g/dL 12.0-15.0 [facility] Work Phone: Blood lymphocytes/100 leukoc yteson 07-20-2021 Lymphocytes/100 WBC (Bld) 25.0 % 19-41 [facility] Work Phone: Blood monocytes/100 leukocyt eson 07-20-2021 Monocytes/100 WBC (Bld) 7.7 % 0-10 [facility] Work Phone: Blood platelet mean volumeon 07-20-2021 Platelet mean volume (Bld) [Entitic vol] 9.3 fL 6.2-12.0 [facility] Work Phone: Determination of erythrocyte mean corpuscular volume (MCV)on 07-20-2021 MCV (RBC) [Entitic vol] 87.2 fL 81-99 [facility] Work Phone: Hematocrit Auto (Bld) [Volum e fraction]on 07-20-2021 Hematocrit (Bld) [Volume fraction] 39.5 % 37-47 [facility] Work Phone: Laboratory - Hematology and Cell countson 07-20-2021 Erythrocyte distribution width (RBC) [Entitic vol] 42.1 fL 35.1-43.9 [facility] Work Phone: Erythrocyte distribution width (RBC) [Ratio] 13.4 % 11.6-14.6 [facility] Work Phone: Immature granulocytes/100 WBC (Bld) 0.300 % 0.0-0.9 [facility] Work Phone: Comment on above: IG% - Immature Granu locytes (promyelocytes, myelocytes and metamyelocytes) > 1% indicates that a LEFT SHIFT is Present. MCH (RBC) [Entitic mass] 28.0 pg 27.0-32.0 [facility] Work Phone: Nucleated RBC/100 WBC (Bld) [Ratio] 0 % 0-5 [facility] Work Phone: MCHC Auto (RBC) [Mass/Vol]on 07-20-2021 MCHC (RBC) [Mass/Vol] 32.2 g/dL 32-[address] [facility] Work Phone: No Panel Informationon 07-20 Thyroid Stimulating Hormone (TSH) 4.14 uIU/mL 0.358-3.74 [facility] Work Phone: Vitamin D 25-Hydroxy 47.4 ng/mL [facility] Work Phone: Comment on above: Vitamin D 25(OH) Sta tus Range Deficiency <20 ng/mL (50nmol/L) Insufficiency 20 - 30 ng/mL (50 - 75 nmol/L) Sufficiency 30 - 100 ng/mL (75 - 250 nmol/L) Toxicity >100 ng/mL (>250 nmol/L) Platelets bldon 07-20-2021 Platelets (Bld) [#/Vol] 400 10*3/uL 150-450 [facility] Work Phone: XR TOE AP/LAT/OBL RIGHTon [facility] XR Toes - right 3 Viewson IMPRESSION: Nondisplaced fracture of the distal fifth proximal phalanx extending to the joint space. [employer] Director: JORGE Transcribe Date/Time: Jul 12 2021 6:13P Dictated by : DEBORA HINDS MD This examination was interpreted and the report reviewed and electronically signed by: DEBORA HINDS MD on Jul 12 2021 6:14PM EST ZZZ_DO_NOT_USE _DIVISION OF RADIOLOGY * * *Final Report* * * DATE OF EXAM: Jul 12 2021 6:02PM WOX [id number] - XR TOE 3V AP/LAT/OBL RT / PROCEDURE REASON: Toe injury, right, initial encounter * * * * Physician Interpretation * * * * EXAMINATION: Right fifth toe HISTORY: Injury TECHNIQUE: 3 views RESULTS: There is a nondisplaced fracture through the distal portion of the fifth proximal phalanx with extension to the articular surface. There is soft tissue swelling. No additional fractures. ZZZ_DO_NOT_USE _DIVISION OF RADIOLOGY Provider, [facility] - 07/12/2021 * * *Final Report* * * DATE OF EXAM: Jul 12 2021 6:02PM WOX 5269 - XR TOE 3V AP/LAT/OBL RT / PROCEDURE REASON: Toe injury, right, initial encounter * * * * Physician Interpretation * * * * EXAMINATION: Right fifth toe HISTORY: Injury TECHNIQUE: 3 views RESULTS: There is a nondisplaced fracture through the distal portion of the fifth proximal phalanx with extension to the articular surface. There is soft tissue swelling. No additional fractures. IMPRESSION IMPRESSION: Nondisplaced fracture of the distal fifth proximal phalanx extending to the joint space. [employer] Director: JORGE Transcribe Date/Time: Jul 12 2021 6:13P Dictated by : DEBORA HINDS MD This examination was interpreted and the report reviewed and electronically signed by: DEBORA HINDS MD on Jul 12 2021 6:14PM EST [facility] Radiology Study observation (narrative) Drea deleon [facility] XR Toes - right 3 ViewsOrder ed By: [facility] Provider on 07-12-2021 [facility] STREP A MOLECULAR (POC)on Procedural Control Valid [facility] Strep A (POCT) Negative Negative [facility] Lab Report: Free T3on 2016 Triiodothyronine (T3) free 3.0 pg/mL 2.18-3.98 [facility] Work Phone: Lab Report: T4 Free Directon 07-23-2016 Thyroxine (T4) free 0.89 ng/dL 0.76-1.46 [facility] Work Phone: Lab Report: Thyroid Stim Hor snehal (TSH)on 07-23-2016 Thyroid stimulating hormone (TSH) 2.03 u[iU]/mL 0.358-3.74 [facility] Work Phone: Office Visit: thyroid evalua tionon 07-23-2016 Adolescent depression screening assessment Adolescent depression screening assessment Invalid Interpretation Code [facility] Work Phone: Adult depression screening assessment Adult depression screening assessment [facility] Work Phone: Adult depression screening assessment Adolescent depression screening assessment [facility] Work Phone: Documentation of current medications (procedure) Done Invalid Interpretation Code [facility] Work Phone: Documentation of current medications (procedure) T Invalid Interpretation Code [facility] Work Phone: Fall risk assessment No [facility] Work Phone: PHQ-9 quick depression assessment panel [Reported.PHQ] Adult depression screening assessment [facility] Work Phone: Protein mass conc Done [facility] Work Phone: Protein mass conc T [facility] Work Phone: Tobacco smoking status NHIS Never [facility] Work Phone: Tobacco smoking status NHIS Former smoker [facility] Work Phone: Tobacco use [facility] Former smoker Invalid Interpretation Code [facility] Work Phone: Office Visit: thyroid evalua makennajohn 03-25-2016 Breast Mammogram screening Normal Bilateral [facility] Work Phone: General categories [interpretation] of Cervical or vaginal smear or scraping by Cyto stain Normal [facility] Work Phone: COVID-19 virus antigen assay SARS-CoV-2 (COVID-19) Ag IA.rapid Ql (Resp) [facility] Work Phone: Vital Signs Date Time Vital Sign Value Performing Clinician Facility 10-20-2024 14:57-0400 Body height 170.[address] Michael Aguirre DO Work Phone: [facility] 10-20-2024 14:57-0400 Body mass index (BMI) [Ratio] 25.3 kg/m2 Dr. Michael Aguirre DO Work Phone: [facility] 10-20-2024 14:57-0400 Body weight 73.[address] Michael Aguirre DO Work Phone: [facility] 10-20-2024 14:57-0400 Diastolic blood pressure 82 mm[Hg] Dr. Michael Aguirre DO Work Phone: [facility] 10-20-2024 14:57-0400 Systolic blood pressure 117 mm[Hg] Dr. Michael Aguirre DO Work Phone: [facility] 09-28-2024 14:42-0400 Body height 170.[address] Michael Aguirre DO Work Phone: [facility] 09-28-2024 14:25-0400 Body mass index (BMI) [Ratio] 25.2 kg/m2 Dr. Michael Aguirre DO Work Phone: [facility] 09-28-2024 14:25-0400 Body weight 73.[address] Michael Aguirre DO Work Phone: [facility] 09-28-2024 14:25-0400 Diastolic blood pressure 79 mm[Hg] Dr. Michael Aguirre DO Work Phone: [facility] 09-28-2024 14:25-0400 Heart rate 88 /min Dr. Michael Aguirre DO Work Phone: [facility] 09-28-2024 14:25-0400 Systolic blood pressure 117 mm[Hg] Dr. Michael Aguirre DO Work Phone: [facility] 09-02-2024 16:18-0400 Body temperature 97.9 [degF] Dr. Michael Aguirre DO Work Phone: [facility] 09-02-2024 16:18-0400 Diastolic blood pressure 78 mm[Hg] Dr. Michael Aguirre DO Work Phone: [facility] 09-02-2024 16:18-0400 Heart rate 85 /min Dr. Michael Aguirre DO Work Phone: [facility] 09-02-2024 16:18-0400 Respiratory rate 15 /min Dr. Michael Aguirre DO Work Phone: [facility] 09-02-2024 16:18-0400 SaO2% (BldA) [Mass fraction] 100 % Dr. Michael Aguirre DO Work Phone: [facility] 09-02-2024 16:18-0400 Systolic blood pressure 117 mm[Hg] Dr. Michael Aguirre DO Work Phone: [facility] 09-02-2024 14:18-0400 Body height 170.[address] Michael Aguirre DO Work Phone: [facility] 09-02-2024 14:18-0400 Body mass index (BMI) [Ratio] 25.5 kg/m2 Dr. Michael Aguirre DO Work Phone: [facility] 09-02-2024 14:18-0400 Body weight 74.[address] Michael Aguirre DO Work Phone: [facility] 06-30-2024 14:42-0400 Body mass index (BMI) [Ratio] 24.3 kg/m2 Dr. Michael Aguirre DO Work Phone: [facility] 06-30-2024 14:42-0400 Body weight 70.[address] Michael Aguirre DO Work Phone: [facility] 06-30-2024 14:42-0400 Diastolic blood pressure 67 mm[Hg] Dr. Michael Aguirre DO Work Phone: [facility] 06-30-2024 14:42-0400 Heart rate 90 /min Dr. Michael Aguirre DO Work Phone: [facility] 06-30-2024 14:42-0400 Systolic blood pressure 127 mm[Hg] Dr. Michael Aguirre DO Work Phone: [facility] 06-23-2024 10:26-0400 Body mass index (BMI) [Ratio] 25.23 kg/m2 Alyson Clutter PA-C Work Phone: [facility] 06-23-2024 10:26-0400 Body temperature 97.5 [degF] Alyson Clutter PA-C Work Phone: [facility] 06-23-2024 10:26-0400 Body weight 70.9 kg Alyson Clutter PA-C Work Phone: [facility] 06-23-2024 10:26-0400 Diastolic blood pressure 80 mm[Hg] Alyson Clutter PA-C Work Phone: [facility] 06-23-2024 10:26-0400 Heart rate 77 /min Alyson Clutter PA-C Work Phone: [facility] 06-23-2024 10:26-0400 Respiratory rate 18 /min Alyson Clutter PA-C Work Phone: [facility] 06-23-2024 10:26-0400 SaO2% (BldA) [Mass fraction] 100 % Alyson Clutter PA-C Work Phone: [facility] 06-23-2024 10:26-0400 Systolic blood pressure 122 mm[Hg] Alyson Clutter PA-C Work Phone: [facility] 05-17-2024 20:03-0500 Body mass index (BMI) [Ratio] 25.51 kg/m2 Tessa Del Castillo APRN.[employer] Work Phone: [facility] 05-17-2024 20:03-0500 Body temperature 97.39 [degF] Tessa Del Castillo APRN.[employer] DR[employer] Work Phone: [facility] 05-17-2024 20:03-0500 Body weight 71.7 kg Tsesa Del Castillo APRN.[employer] DR[employer] Work Phone: [facility] 05-17-2024 20:03-0500 Diastolic blood pressure 74 mm[Hg] Tessa Del Castillo APRN.[employer] DRIVER Work Phone: [facility] 05-17-2024 20:03-0500 Heart rate 98 /min Tessa Del Castillo APRN.[employer] DRIVER Work Phone: [facility] 05-17-2024 20:03-0500 Respiratory rate 16 /min Tessa Del Castillo APRN.[employer] DRIVER Work Phone: [facility] 05-17-2024 20:03-0500 SaO2% (BldA) [Mass fraction] 98 % Tessa Del Castillo APRN.[employer] DRIVER Work Phone: [facility] 05-17-2024 20:03-0500 Systolic blood pressure 128 mm[Hg] Tessa Del Castillo APRN.[employer] DRIVER Work Phone: [facility] 04-28-2024 14:29-0500 Body height 170.[address] Michael Aguirre DO Work Phone: [facility] 04-28-2024 14:29-0500 Body mass index (BMI) [Ratio] 24.7 kg/m2 Dr. Michael Aguirre DO Work Phone: [facility] 04-28-2024 14:29-0500 Body weight 71.[address] Michael Aguirre DO Work Phone: [facility] 04-28-2024 14:29-0500 Diastolic blood pressure 79 mm[Hg] Dr. Michael Aguirre DO Work Phone: [facility] 04-28-2024 14:29-0500 Systolic blood pressure 119 mm[Hg] Dr. Michael Aguirre DO Work Phone: [facility] 04-06-2024 19:54-0500 Body mass index (BMI) [Ratio] 24.77 kg/m2 Enochmeek Guan MORNING BABYSITTER.[employer] DRIVER Work Phone: [facility] 04-06-2024 19:54-0500 Body temperature 96.91 [degF] Enoch Surya MORNING BABYSITTER.[employer] DRIVER Work Phone: [facility] 04-06-2024 19:54-0500 Body weight 69.6 kg Enoch Guan MORNING BABYSITTER.[employer] DRIVER Work Phone: [facility] 04-06-2024 19:54-0500 Diastolic blood pressure 84 mm[Hg] Enoch Ball MORNING BABYSITTER.[employer] DRIVER Work Phone: [facility] 04-06-2024 19:54-0500 Heart rate 74 /min Enoch Ball MORNING BABYSITTER.[employer] DRIVER Work Phone: [facility] 04-06-2024 19:54-0500 Respiratory rate 18 /min Enoch Ball MORNING BABYSITTER.[employer] DRIVER Work Phone: [facility] 04-06-2024 19:54-0500 SaO2% (BldA) [Mass fraction] 98 % Enoch Guan MORNING BABYSITTER.[employer] DRIVER Work Phone: [facility] 04-06-2024 19:54-0500 Systolic blood pressure 136 mm[Hg] Enoch Guan MORNING BABYSITTER.[employer] DRIVER Work Phone: [facility] 12-02-2023 19:38-0400 Body mass index (BMI) [Ratio] 24.59 kg/m2 Jeni Andino MORNING BABYSITTER.[employer] DRIVER Work Phone: [facility] 12-02-2023 19:38-0400 Body temperature 98.2 [degF] Jeni Andino MORNING BABYSITTER.[employer] DRIVER Work Phone: [facility] 12-02-2023 19:38-0400 Body weight 69.1 kg Jeni Andino MORNING BABYSITTER.[employer] DRIVER Work Phone: [facility] 12-02-2023 19:38-0400 Diastolic blood pressure 68 mm[Hg] Jeni Andino MORNING BABYSITTER.[employer] DRIVER Work Phone: [facility] 12-02-2023 19:38-0400 Heart rate 94 /min Jeni Andino MORNING BABYSITTER.[employer] DRIVER Work Phone: [facility] 12-02-2023 19:38-0400 Respiratory rate 16 /min Jeni Andino MORNING BABYSITTER.[employer] DRIVER Work Phone: [facility] 12-02-2023 19:38-0400 SaO2% (BldA) [Mass fraction] 97 % Jeni Andino MORNING BABYSITTER.[employer] DRIVER Work Phone: [facility] 12-02-2023 19:38-0400 Systolic blood pressure 110 mm[Hg] Jeni Andino MORNING BABYSITTER.[employer] DRIVER Work Phone: [facility] 07-07-2023 18:25-0400 Body temperature 98.6 [degF] Angela Athy PA-C Work Phone: [facility] 07-07-2023 18:25-0400 Body weight 73.5 kg Angela Athy PA-C Work Phone: [facility] 07-07-2023 18:25-0400 Diastolic blood pressure 80 mm[Hg] Angela Athy PA-C Work Phone: [facility] 07-07-2023 18:25-0400 Heart rate 112 /min Angela Athy PA-C Work Phone: [facility] 07-07-2023 18:25-0400 Respiratory rate 18 /min Angela Athy PA-C Work Phone: [facility] 07-07-2023 18:25-0400 SaO2% (BldA) [Mass fraction] 99 % Angela Athy PA-C Work Phone: [facility] 07-07-2023 18:25-0400 Systolic blood pressure 122 mm[Hg] Angela Athy PA-C Work Phone: [facility] 06-17-2023 14:22-0400 Body height 170.[address] Michael Aguirre Work Phone: [facility] 06-17-2023 14:22-0400 Body mass index (BMI) [Ratio] 25.2 kg/m2 Dr. Michael Aguirre Work Phone: [facility] 06-17-2023 14:22-0400 Diastolic blood pressure 82 mm[Hg] Dr. Michael Aguirre Work Phone: [facility] 06-17-2023 14:22-0400 Systolic blood pressure 115 mm[Hg] Dr. Michael Aguirre Work Phone: [facility] 06-17-2023 14:03-0400 Body weight 73.[address] Michael Aguirre Work Phone: [facility] 06-17-2023 14:03-0400 Heart rate 89 /min Dr. Michael Aguirre Work Phone: [facility] 05-24-2023 15:08-0500 Body temperature 97 [degF] Anika Rizzo MORNING BABYSITTER.[employer] DRIVER Work Phone: [facility] 05-24-2023 15:08-0500 Body weight 74.03 kg Anika Rizzo MORNING BABYSITTER.[employer] DRIVER Work Phone: [facility] 05-24-2023 15:08-0500 Diastolic blood pressure 85 mm[Hg] Anika Rizzo MORNING BABYSITTER.[employer] DRIVER Work Phone: [facility] 05-24-2023 15:08-0500 Heart rate 85 /min Anika Rizzo MORNING BABYSITTER.[employer] DRIVER Work Phone: [facility] 05-24-2023 15:08-0500 Respiratory rate 18 /min Anika Rizzo MORNING BABYSITTER.[employer] DRIVER Work Phone: [facility] 05-24-2023 15:08-0500 SaO2% (BldA) [Mass fraction] 100 % Anika Rizzo MORNING BABYSITTER.[employer] DRIVER Work Phone: [facility] 05-24-2023 15:08-0500 Systolic blood pressure 126 mm[Hg] Anika Rizzo [employer] DRIVER Work Phone: [facility] 05-08-2023 15:32-0500 Body mass index (BMI) [Ratio] 25.2 kg/m2 Dr. Michael Aguirre Work Phone: [facility] 05-08-2023 15:32-0500 Body weight 73.[address] Michael Aguirre Work Phone: [facility] 05-08-2023 15:32-0500 Diastolic blood pressure 86 mm[Hg] Dr. Michael Aguirre Work Phone: [facility] 05-08-2023 15:32-0500 Heart rate 96 /min Dr. Michael Aguirre Work Phone: [facility] 05-08-2023 15:32-0500 Systolic blood pressure 123 mm[Hg] Dr. Michael Aguirre Work Phone: [facility] 04-23-2023 08:59-0500 Body mass index (BMI) [Ratio] 25.2 kg/m2 Dr. Michael Aguirre Work Phone: [facility] 04-23-2023 08:59-0500 Body temperature 98 [degF] Dr. Michael Aguirre Work Phone: [facility] 04-23-2023 08:59-0500 Body weight 73.[address] Michael Aguirre Work Phone: [facility] 04-23-2023 08:59-0500 Diastolic blood pressure 82 mm[Hg] Dr. Michael Aguirre Work Phone: [facility] 04-23-2023 08:59-0500 Heart rate 97 /min Dr. Michael Aguirre Work Phone: [facility] 04-23-2023 08:59-0500 Respiratory rate 18 /min Dr. Michael Aguirre Work Phone: [facility] 04-23-2023 08:59-0500 SaO2% (BldA) [Mass fraction] 98 % Dr. Michael Aguirre Work Phone: [facility] 04-23-2023 08:59-0500 Systolic blood pressure 116 mm[Hg] Dr. Michael Aguirre Work Phone: [facility] 04-11-2023 14:49-0500 Body mass index (BMI) [Ratio] 25.4 kg/m2 Dr. Michael Aguirre Work Phone: [facility] 04-11-2023 14:49-0500 Body weight 73.[address] Michael Aguirre Work Phone: [facility] 04-11-2023 14:49-0500 Diastolic blood pressure 72 mm[Hg] Dr. Michael Aguirre Work Phone: [facility] 04-11-2023 14:49-0500 Heart rate 74 /min Dr. Michael Aguirre Work Phone: [facility] 04-11-2023 14:49-0500 Systolic blood pressure 114 mm[Hg] Dr. Michael Aguirre Work Phone: [facility] 01-28-2023 13:50-0500 Body temperature 97.81 [degF] Zurdo Niño MORNING BABYSITTER.[employer] DRIVER Work Phone: [facility] 01-28-2023 13:50-0500 Body weight 73.57 kg Zurdo Niño MORNING BABYSITTER.[employer] DRIVER Work Phone: [facility] 01-28-2023 13:50-0500 Diastolic blood pressure 62 mm[Hg] Zurdo Pendlebury MORNING BABYSITTER.[employer] TR[employer] DRIVER Work Phone: [facility] 01-28-2023 13:50-0500 Heart rate 98 /min Zurdo Salinas MORNING BABYSITTER.[employer] DRIVER Work Phone: [facility] 01-28-2023 13:50-0500 Respiratory rate 16 /min Zurdo Pendlegerson MORNING BABYSITTER.[employer] DRIVER Work Phone: [facility] 01-28-2023 13:50-0500 SaO2% (BldA) [Mass fraction] 99 % Zurdo Salinas MORNING BABYSITTER.[employer] DRIVER Work Phone: [facility] 01-28-2023 13:50-0500 Systolic blood pressure 110 mm[Hg] Zurdo Niño MORNING BABYSITTER.[employer] DRIVER Work Phone: [facility] 12-06-2022 16:07-0400 Body mass index (BMI) [Ratio] 26.2 kg/m2 Dr. Michael Aguirre Work Phone: [facility] 12-06-2022 16:07-0400 Body weight 75.[address] Michael Aguirre Work Phone: [facility] 12-06-2022 16:07-0400 Diastolic blood pressure 76 mm[Hg] Dr. Michael Aguirre Work Phone: [facility] 12-06-2022 16:07-0400 Heart rate 97 /min Dr. Michael Aguirre Work Phone: [facility] 12-06-2022 16:07-0400 Systolic blood pressure 122 mm[Hg] Dr. Michael Aguirre Work Phone: [facility] 11-28-2022 13:46-0400 Body temperature 98.8 [degF] Angela Athy PA-C Work Phone: [facility] 11-28-2022 13:46-0400 Body weight 77.56 kg Angela Athy PA-C Work Phone: [facility] 11-28-2022 13:46-0400 Diastolic blood pressure 77 mm[Hg] Angela Athy PA-C Work Phone: [facility] 11-28-2022 13:46-0400 Heart rate 96 /min Angela Athy PA-C Work Phone: [facility] 11-28-2022 13:46-0400 Respiratory rate 18 /min Angela Athy PA-C Work Phone: [facility] 11-28-2022 13:46-0400 SaO2% (BldA) [Mass fraction] 100 % Angela ROSARIO-C Work Phone: [facility] 11-28-2022 13:46-0400 Systolic blood pressure 112 mm[Hg] Angela Matute PA-C Work Phone: [facility] 11-18-2022 14:38-0400 Body temperature 98.6 [degF] Adwoa Praisler-Wood MORNING BABYSITTER.[employer]K [employer] DRIVER Work Phone: [facility] 11-18-2022 14:38-0400 Body weight 77.2 kg Adwoa Praisler-Wood MORNING BABYSITTER.[employer]K [employer] DRIVER Work Phone: [facility] 11-18-2022 14:38-0400 Diastolic blood pressure 84 mm[Hg] Adwoa Praisler-Wood MORNING BABYSITTER.[employer]K TRUCK DRIVER Work Phone: [facility] 11-18-2022 14:38-0400 Heart rate 100 /min Adwoa Praisler-Wood MORNING BABYSITTER.[employer]K TRUCK DRIVER Work Phone: [facility] 11-18-2022 14:38-0400 Respiratory rate 21 /min Adwoa Praisler-Wood MORNING BABYSITTER.[employer]K [employer] DRIVER Work Phone: [facility] 11-18-2022 14:38-0400 SaO2% (BldA) [Mass fraction] 99 % Adwoa Praisler-Wood MORNING BABYSITTER.[employer]K TR[employer] DRIVER Work Phone: [facility] 11-18-2022 14:38-0400 Systolic blood pressure 128 mm[Hg] Adwoa Praisler-Wood MORNING BABYSITTER.[employer]K [employer] DRIVER Work Phone: [facility] 10-07-2022 23:13-0400 Body height 170.[address] Michael Aguirre Work Phone: [facility] 10-07-2022 23:13-0400 Body mass index (BMI) [Ratio] 27.7 kg/m2 Dr. Michael Aguirre Work Phone: [facility] 10-07-2022 23:13-0400 Body temperature 97.8 [degF] Dr. Michael Aguirre Work Phone: [facility] 10-07-2022 23:13-0400 Body weight 80.[address] Michael Aguirre Work Phone: [facility] 10-07-2022 23:13-0400 Diastolic blood pressure 75 mm[Hg] Dr. Michael Aguirre Work Phone: [facility] 10-07-2022 23:13-0400 Heart rate 95 /min Dr. Michael Aguirre Work Phone: [facility] 10-07-2022 23:13-0400 Respiratory rate 18 /min Dr. Michael Aguirre Work Phone: [facility] 10-07-2022 23:13-0400 SaO2% (BldA) [Mass fraction] 98 % Dr. Michael Aguirre Work Phone: [facility] 10-07-2022 23:13-0400 Systolic blood pressure 117 mm[Hg] Dr. Michael Aguirre Work Phone: [facility] 09-30-2022 08:30-0400 Body height 167.[address] Michael Aguirre Work Phone: [facility] 09-30-2022 08:30-0400 Body mass index (BMI) [Ratio] 28.8 kg/m2 Dr. Michael Aguirre Work Phone: [facility] 09-30-2022 08:30-0400 Body temperature 98.9 [degF] Dr. Michael Aguirre Work Phone: [facility] 09-30-2022 08:30-0400 Body weight 81.[address] Michael Aguirre Work Phone: [facility] 09-30-2022 08:30-0400 Diastolic blood pressure 73 mm[Hg] Dr. Michael Aguirre Work Phone: [facility] 09-30-2022 08:30-0400 Heart rate 97 /min Dr. Michael Aguirre Work Phone: [facility] 09-30-2022 08:30-0400 Respiratory rate 18 /min Dr. Michael Aguirre Work Phone: [facility] 09-30-2022 08:30-0400 SaO2% (BldA) [Mass fraction] 97 % Dr. Michael Aguirre Work Phone: [facility] 09-30-2022 08:30-0400 Systolic blood pressure 125 mm[Hg] Dr. Michael Aguirre Work Phone: [facility] 08-29-2022 08:56-0400 Body temperature 98 [degF] Dr. Michael Aguirre Work Phone: [facility] 08-29-2022 08:56-0400 Diastolic blood pressure 62 mm[Hg] Dr. Michael Aguirre Work Phone: [facility] 08-29-2022 08:56-0400 Heart rate 73 /min Dr. Michael Aguirre Work Phone: [facility] 08-29-2022 08:56-0400 Respiratory rate 18 /min Dr. Michael Aguirre Work Phone: [facility] 08-29-2022 08:56-0400 SaO2% (BldA) [Mass fraction] 100 % Dr. Michael Aguirre Work Phone: [facility] 08-29-2022 08:56-0400 Systolic blood pressure 98 mm[Hg] Dr. Michael Aguirre Work Phone: [facility] 08-29-2022 06:48-0400 Body height 167.[address] Michael Aguirre Work Phone: [facility] 08-29-2022 06:48-0400 Body mass index (BMI) [Ratio] 30.4 kg/m2 Dr. Michael Aguirre Work Phone: [facility] 08-29-2022 06:48-0400 Body weight 85.[address] Michael Aguirre Work Phone: [facility] 08-20-2022 14:06-0400 Body mass index (BMI) [Ratio] 29.2 kg/m2 Dr. Michael Aguirre Work Phone: [facility] 08-20-2022 14:06-0400 Body weight 84.[address] Michael Aguirre Work Phone: [facility] 08-20-2022 14:06-0400 Diastolic blood pressure 74 mm[Hg] Dr. Michael Aguirre Work Phone: [facility] 08-20-2022 14:06-0400 Systolic blood pressure 122 mm[Hg] Dr. Michael Aguirre Work Phone: [facility] 04-30-2022 14:31-0500 Body height 170.[address] Michael Aguirre Work Phone: [facility] 04-30-2022 14:31-0500 Body mass index (BMI) [Ratio] 34.2 kg/m2 Dr. Michael Aguirre Work Phone: [facility] 04-30-2022 14:31-0500 Body temperature 97.1 [degF] Dr. Michael Aguirre Work Phone: [facility] 04-30-2022 14:31-0500 Body weight 98.[address] Michael Aguirre Work Phone: [facility] 04-30-2022 14:31-0500 Diastolic blood pressure 77 mm[Hg] Dr. Michael Aguirre Work Phone: [facility] 04-30-2022 14:31-0500 Heart rate 91 /min Dr. Michael Aguirre Work Phone: [facility] 04-30-2022 14:31-0500 Respiratory rate 20 /min Dr. Michael Aguirre Work Phone: [facility] 04-30-2022 14:31-0500 SaO2% (BldA) [Mass fraction] 95 % Dr. Michael Aguirre Work Phone: [facility] 04-30-2022 14:31-0500 Systolic blood pressure 115 mm[Hg] Dr. Michael Aguirre Work Phone: [facility] 04-23-2022 07:50-0500 Body mass index (BMI) [Ratio] 34 kg/m2 Dr. Michael Aguirre Work Phone: [facility] 04-23-2022 07:50-0500 Body temperature 97.2 [degF] Dr. Michael Aguirre Work Phone: [facility] 04-23-2022 07:50-0500 Body weight 98.[address] Michael Aguirre Work Phone: [facility] 04-23-2022 07:50-0500 Diastolic blood pressure 81 mm[Hg] Dr. Michael Aguirre Work Phone: [facility] 04-23-2022 07:50-0500 Heart rate 79 /min Dr. Michael Aguirre Work Phone: [facility] 04-23-2022 07:50-0500 Respiratory rate 16 /min Dr. Michael Aguirre Work Phone: [facility] 04-23-2022 07:50-0500 SaO2% (BldA) [Mass fraction] 96 % Dr. Michael Aguirre Work Phone: [facility] 04-23-2022 07:50-0500 Systolic blood pressure 144 mm[Hg] Dr. Michael Aguirre Work Phone: [facility] 04-18-2022 13:37-0500 Body mass index (BMI) [Ratio] 34 kg/m2 Dr. Michael Aguirre Work Phone: [facility] 04-18-2022 13:37-0500 Body weight 98.[address] Michael Aguirre Work Phone: [facility] 04-18-2022 13:37-0500 Diastolic blood pressure 84 mm[Hg] Dr. Michael Aguirre Work Phone: [facility] 04-18-2022 13:37-0500 Systolic blood pressure 126 mm[Hg] Dr. Michael Aguirre Work Phone: [facility] 04-11-2022 08:37-0500 Body temperature 97.3 [degF] Dr. Michael Aguirre Work Phone: [facility] 04-11-2022 08:37-0500 Diastolic blood pressure 82 mm[Hg] Dr. Michael Aguirre Work Phone: [facility] 04-11-2022 08:37-0500 Heart rate 97 /min Dr. Michael Aguirre Work Phone: [facility] 04-11-2022 08:37-0500 Respiratory rate 14 /min Dr. Michael Aguirre Work Phone: [facility] 04-11-2022 08:37-0500 SaO2% (BldA) [Mass fraction] 108 % Dr. Michael Aguirre Work Phone: [facility] 04-11-2022 08:37-0500 Systolic blood pressure 116 mm[Hg] Dr. Michael Aguirre Work Phone: [facility] 03-26-2022 13:45-0500 Body mass index (BMI) [Ratio] 33.3 kg/m2 Dr. Michael Aguirre Work Phone: [facility] 03-26-2022 13:45-0500 Body temperature 96.2 [degF] Dr. Michael Aguirre Work Phone: [facility] 03-26-2022 13:45-0500 Body weight 96.[address] Michael Aguirre Work Phone: [facility] 03-26-2022 13:45-0500 Diastolic blood pressure 78 mm[Hg] Dr. Michael Aguirre Work Phone: [facility] 03-26-2022 13:45-0500 Heart rate 100 /min Dr. Michael Aguirre Work Phone: [facility] 03-26-2022 13:45-0500 Respiratory rate 18 /min Dr. Michael Aguirre Work Phone: [facility] 03-26-2022 13:45-0500 SaO2% (BldA) [Mass fraction] 96 % Dr. Michael Aguirre Work Phone: [facility] 03-26-2022 13:45-0500 Systolic blood pressure 114 mm[Hg] Dr. Michael Aguirre Work Phone: [facility] 03-07-2022 18:58-0500 Diastolic blood pressure 83 mm[Hg] Dr. Michael Aguirre Work Phone: [facility] 03-07-2022 18:58-0500 Heart rate 90 /min Dr. Michael Aguirre Work Phone: [facility] 03-07-2022 18:58-0500 Respiratory rate 14 /min Dr. Michael Aguirre Work Phone: [facility] 03-07-2022 18:58-0500 SaO2% (BldA) [Mass fraction] 99 % Dr. Michael Aguirre Work Phone: [facility] 03-07-2022 18:58-0500 Systolic blood pressure 130 mm[Hg] Dr. Michael Aguirre Work Phone: [facility] 03-07-2022 15:25-0500 Body height 170.[address] Michael Aguirre Work Phone: [facility] Work Phone: 03-07-2022 15:25-0500 Body mass index (BMI) [Ratio] 32.8 kg/m2 Dr. Michael Aguirre Work Phone: [facility] 03-07-2022 15:25-0500 Body temperature 97.1 [degF] Dr. Michael Aguirre Work Phone: [facility] 03-07-2022 15:25-0500 Body weight 95.[address] Michael Aguirre Work Phone: [facility] 02-28-2022 17:37-0500 Body temperature 97.7 [degF] Adwoa Praisler-Wood MORNING BABYSITTER.[employer]K [employer] DRIVER Work Phone: [facility] 02-28-2022 17:37-0500 Body weight 97.16 kg Adwoa Praisler-Wood MORNING BABYSITTER.[employer]K TRUCK DRIVER Work Phone: [facility] 02-28-2022 17:37-0500 Diastolic blood pressure 84 mm[Hg] Adwoa Praisler-Wood MORNING BABYSITTER.[employer]ILK TRUCK DRIVER Work Phone: [facility] 02-28-2022 17:37-0500 Heart rate 114 /min Adwoa Praisler-Wood MORNING BABYSITTER.[employer]K TRUCK DRIVER Work Phone: [facility] 02-28-2022 17:37-0500 Respiratory rate 20 /min Adwoa Praisler-Wood MORNING BABYSITTER.[employer]ILK TRUCK DRIVER Work Phone: [facility] 02-28-2022 17:37-0500 SaO2% (BldA) [Mass fraction] 98 % Adwoa Praisler-Wood MORNING BABYSITTER.MILK TRUCK DRIVER Work Phone: [facility] 02-28-2022 17:37-0500 Systolic blood pressure 124 mm[Hg] Adwoa Praisler-Wood MORNING BABYSITTER.[employer]ILK TRUCK DRIVER Work Phone: [facility] 02-11-2022 19:47-0500 Body temperature 97.9 [degF] Anika Rizzo MORNING BABYSITTER.MILK TRUCK DRIVER Work Phone: [facility] 02-11-2022 19:47-0500 Body weight 97.16 kg Anika Rizzo MORNING BABYSITTER.[employer]K TR[employer] DRIVER Work Phone: [facility] 02-11-2022 19:47-0500 Diastolic blood pressure 80 mm[Hg] Anika Rizzo MORNING BABYSITTER.MILK TRUCK DRIVER Work Phone: [facility] 02-11-2022 19:47-0500 Heart rate 118 /min Anika Rizzo MORNING BABYSITTER.[employer]ILK TR[employer] DRIVER Work Phone: [facility] 02-11-2022 19:47-0500 Respiratory rate 20 /min Anika Rizzo MORNING BABYSITTER.MILK TRUCK DRIVER Work Phone: [facility] 02-11-2022 19:47-0500 SaO2% (BldA) [Mass fraction] 98 % Anika Rizzo MORNING BABYSITTER.MILK TRUCK DRIVER Work Phone: [facility] 02-11-2022 19:47-0500 Systolic blood pressure 126 mm[Hg] Anika Rizzo MORNING BABYSITTER.MILK TRUCK DRIVER Work Phone: [facility] 12-28-2021 15:48-0400 Heart rate 100 /min Dr. Michael Aguirre Work Phone: [facility] Work Phone: 12-28-2021 15:48-0400 Respiratory rate 18 /min Dr. Michael Aguirre Work Phone: [facility] Work Phone: 12-28-2021 15:48-0400 SaO2% (BldA) [Mass fraction] 98 % Dr. Michael Aguirre Work Phone: [facility] Work Phone: 12-28-2021 13:38-0400 Body height 170.[address] Michael Aguirre Work Phone: [facility] Work Phone: 12-28-2021 13:38-0400 Body mass index (BMI) [Ratio] 32.2 kg/m2 Dr. Michael Aguirre Work Phone: [facility] Work Phone: 12-28-2021 13:38-0400 Body temperature 97.5 [degF] Dr. Michael Aguirre Work Phone: [facility] Work Phone: 12-28-2021 13:38-0400 Body weight 93.[address] Michael Aguirre Work Phone: [facility] Work Phone: 12-28-2021 13:38-0400 Diastolic blood pressure 90 mm[Hg] Dr. Michael Aguirre Work Phone: [facility] Work Phone: 12-28-2021 13:38-0400 Systolic blood pressure 118 mm[Hg] Dr. Michael Aguirre Work Phone: [facility] Work Phone: 12-22-2021 20:45-0400 Body height 167.[address] Michael Aguirre Work Phone: [facility] Work Phone: 12-22-2021 20:45-0400 Body mass index (BMI) [Ratio] 32.5 kg/m2 Dr. Michael Aguirre Work Phone: [facility] Work Phone: 12-22-2021 20:45-0400 Body temperature 98.7 [degF] Dr. Michael Aguirre Work Phone: [facility] Work Phone: 12-22-2021 20:45-0400 Body weight 91.[address] Michael Aguirre Work Phone: [facility] Work Phone: 12-22-2021 20:45-0400 Diastolic blood pressure 78 mm[Hg] Dr. Michael Aguirre Work Phone: [facility] Work Phone: 12-22-2021 20:45-0400 Heart rate 87 /min Dr. Michael Aguirre Work Phone: [facility] Work Phone: 12-22-2021 20:45-0400 Respiratory rate 16 /min Dr. Michael Aguirre Work Phone: [facility] Work Phone: 12-22-2021 20:45-0400 SaO2% (BldA) [Mass fraction] 98 % Dr. Michael Aguirre Work Phone: [facility] Work Phone: 12-22-2021 20:45-0400 Systolic blood pressure 142 mm[Hg] Dr. Michael Aguirre Work Phone: [facility] Work Phone: 08-15-2021 09:30-0400 Body height 167.[address] Michael Aguirre Work Phone: [facility] Work Phone: 08-15-2021 09:30-0400 Body mass index (BMI) [Ratio] 33.3 kg/m2 Dr. Michael Aguirre Work Phone: [facility] Work Phone: 08-15-2021 09:30-0400 Body weight 93.[address] Michael Aguirre Work Phone: [facility] Work Phone: 08-15-2021 09:30-0400 Diastolic blood pressure 60 mm[Hg] Dr. Michael Aguirre Work Phone: [facility] Work Phone: 08-15-2021 09:30-0400 Systolic blood pressure 100 mm[Hg] Dr. Michael Aguirre Work Phone: [facility] Work Phone: 07-12-2021 17:17-0400 Body temperature 98.1 [degF] Reggie Alvarez APRN.MILK TRUCK DRIVER Work Phone: [facility] 07-12-2021 17:17-0400 Body weight 93.89 kg Reggie Alvarez MORNING BABYSITTER.MILK TRUCK DRIVER Work Phone: [facility] 07-12-2021 17:17-0400 Diastolic blood pressure 76 mm[Hg] Reggie Alvarez APRN.MILK TRUCK DRIVER Work Phone: [facility] 07-12-2021 17:17-0400 Heart rate 87 /min Reggie Alvarez APRN.MILK TRUCK DRIVER Work Phone: [facility] 07-12-2021 17:17-0400 Respiratory rate 16 /min Reggie Alvarez MORNING BABYSITTER.MILK TRUCK DRIVER Work Phone: [facility] 07-12-2021 17:17-0400 SaO2% (BldA) [Mass fraction] 98 % Reggie Alvarez MORNING BABYSITTER.MILK TRUCK DRIVER Work Phone: [facility] 07-12-2021 17:17-0400 Systolic blood pressure 122 mm[Hg] Reggie Alvarez MORNING BABYSITTER.MILK TRUCK DRIVER Work Phone: [facility] 06-29-2021 13:54-0400 Body mass index (BMI) [Ratio] 33.5 kg/m2 Dr. Michael Aguirre Work Phone: [facility] Work Phone: 06-29-2021 13:54-0400 Body temperature 97.7 [degF] Dr. Michael Aguirre Work Phone: [facility] Work Phone: 06-29-2021 13:54-0400 Body weight 94.[address] Michael Aguirre Work Phone: [facility] Work Phone: 06-29-2021 13:54-0400 Diastolic blood pressure 74 mm[Hg] Dr. Michael Aguirre Work Phone: [facility] Work Phone: 06-29-2021 13:54-0400 Heart rate 71 /min Dr. Michael Aguirre Work Phone: [facility] Work Phone: 06-29-2021 13:54-0400 Respiratory rate 16 /min Dr. Michael Aguirre Work Phone: [facility] Work Phone: 06-29-2021 13:54-0400 SaO2% (BldA) [Mass fraction] 99 % Dr. Michael Aguirre Work Phone: [facility] Work Phone: 06-29-2021 13:54-0400 Systolic blood pressure 112 mm[Hg] Dr. Michael Aguirre Work Phone: [facility] Work Phone: 06-29-2021 13:54-0400 Body height 167.[address] Michael Aguirre Work Phone: [facility] Work Phone: 06-29-2021 13:54-0400 Body mass index (BMI) [Ratio] 33.5 kg/m2 Dr. Michael Aguirre Work Phone: [facility] Work Phone: 06-29-2021 13:54-0400 Body temperature 97.7 [degF] Dr. Michael Aguirre Work Phone: [facility] Work Phone: 06-29-2021 13:54-0400 Body weight 94.[address] Michael Aguirre Work Phone: [facility] Work Phone: 06-29-2021 13:54-0400 Diastolic blood pressure 74 mm[Hg] Dr. Michael Aguirre Work Phone: [facility] Work Phone: 06-29-2021 13:54-0400 Heart rate 71 /min Dr. Michael Aguirre Work Phone: [facility] Work Phone: 06-29-2021 13:54-0400 Respiratory rate 16 /min Dr. Michael Aguirre Work Phone: [facility] Work Phone: 06-29-2021 13:54-0400 SaO2% (BldA) [Mass fraction] 99 % Dr. Michael Aguirre Work Phone: [facility] Work Phone: 06-29-2021 13:54-0400 Systolic blood pressure 112 mm[Hg] Dr. Michael Aguirre Work Phone: [facility] Work Phone: 06-28-2021 19:03-0400 Body temperature 97.81 [degF] Anika Rizzo MORNING BABYSITTER.MILK TRUCK DRIVER Work Phone: [facility] 06-28-2021 19:03-0400 Body weight 94.08 kg Anika Rizzo MORNING BABYSITTER.MILK TRUCK DRIVER Work Phone: [facility] 06-28-2021 19:03-0400 Diastolic blood pressure 72 mm[Hg] Anika Rizzo MORNING BABYSITTER.MILK TRUCK DRIVER Work Phone: [facility] 06-28-2021 19:03-0400 Heart rate 94 /min Anika Rizzo MORNING BABYSITTER.MILK TRUCK DRIVER Work Phone: [facility] 06-28-2021 19:03-0400 Respiratory rate 18 /min Anika Rizzo MORNING BABYSITTER.MILK TRUCK DRIVER Work Phone: [facility] 06-28-2021 19:03-0400 SaO2% (BldA) [Mass fraction] 99 % Anika Rizzo MORNING BABYSITTER.MILK TRUCK DRIVER Work Phone: [facility] 06-28-2021 19:03-0400 Systolic blood pressure 124 mm[Hg] Anika Rizzo MORNING BABYSITTER.MILK TRUCK DRIVER Work Phone: [facility] 07-23-2016 15:21-0400 BMI (Body Mass Index) 30.72 kg/m2 Flory Anders NP [facility] Work Phone: 07-23-2016 15:21-0400 Body Temperature 97.5 [degF] Flory Anders NP [facility] Work Phone: 07-23-2016 15:21-0400 BP Diastolic 66 mm[Hg] Flory Anders NP [facility] Work Phone: 07-23-2016 15:21-0400 BP Systolic 101 mm[Hg] Flory Anders NP [facility] Work Phone: 07-23-2016 15:21-0400 Height 165.1 cm [facility] Work Phone: 07-23-2016 15:21-0400 Pulse (Heart Rate) 80 /min Flory [facility] Work Phone: 07-23-2016 15:21-0400 Pulse Oximetry 97 % [facility] Work Phone: 07-23-2016 15:21-0400 Respiratory Rate 16 /min Flory [facility] Work Phone: 07-23-2016 15:21-0400 Weight 83.73 kg lFory [facility] Work Phone: Encounters Encounter Date Encounter Type Care Provider Facility Start: 10-20-2024 ambulatory Xochilt Rutherford Facility :[facility] Start: 10-20-2024 End: 10-20-[address] Michael Aguirre DO Work Phone: -[facility] Start: 10-20-2024 End: 10-20-2024 Patient encounter procedure Xochilt Krish BYRNES -[facility] Work Phone: Start: 10-20-2024 End: 10-20-2024 Patient encounter status Xochilt Krish BYRNES [facility] Start: 09-28-2024 End: 09-28-2024 Patient encounter procedure Xochilt BYRNES -[facility] Work Phone: Start: 09-28-2024 End: 09-28-[address] Michael Aguirre DO Work Phone: -[facility] Start: 09-21-2024 Non-patient / Non-visit Dr. Rosemarie chadwick MD -[facility] Work Phone: Start: 09-02-2024 End: 09-02-2024 Emergency department patient visit Dr. Michael Aguirre DO Work Phone: -Emergency Department Work Phone: Start: 08-10-2024 ambulatory Xochilt Rutherford Facility :[facility] Start: 07-28-2024 ambulatory Xochilt Hernándezkellogg Facility :[facility] Start: 06-30-2024 End: 06-30-2024 Patient encounter procedure Xochilt Rutherford QUANTITATIVE CONSULTANT-C -[facility] Work Phone: Start: 06-30-2024 End: 06-30-2024 ambulatory Xochilt [facility] Facility:[facility] Start: 06-23-2024 End: 06-23-2024 ambulatory [facility] Facility:[facility] Start: 06-23-2024 End: 06-23-2024 Office outpatient visit 25 minutes Alyson Majano PA-C Work Phone: [facility] Comment on above: Acute conjunctivitis of left eye, unspecified acute conjunctivitis type (Primary Dx); Dental infection Start: 05-29-2024 End: 05-29-[address] Michael Aguirre DO Work Phone: [facility] Work Phone: Start: 05-29-2024 End: 05-29-2024 Patient encounter procedure Xochilt Rutherford QUANTITATIVE CONSULTANT-C -Laboratory Work Phone: Start: 05-29-2024 End: 05-29-2024 ambulatory [facility] Facility:[facility] Start: 05-17-2024 End: 05-18-2024 ambulatory [facility] Facility:[facility] Start: 05-17-2024 End: 05-17-2024 Patient encounter procedure Tessa Del Castillo APRN.MILK TRUCK DRIVER Work Phone: [facility] Comment on above: Pain, dental (Primar y Dx) Start: 05-14-2024 Encounter for genera l adult medical examination without abnormal findings Xochilt Rutherford [facility] Start: 04-29-2024 End: 04-29-2024 Patient encounter procedure Xochilt Rutherford QUANTITATIVE CONSULTANT-C -Laboratory Work Phone: Start: 04-28-2024 End: 04-28-2024 Patient encounter procedure Xochilt Rutherford QUANTITATIVE CONSULTANT-C -Laboratory Work Phone: Start: 04-28-2024 End: 04-28-2024 Patient encounter procedure Xochilt Rutherford QUANTITATIVE CONSULTANT-C -[facility] Work Phone: Start: 04-28-2024 End: 04-29-2024 ambulatory [facility] Facility:[facility] Start: 04-28-2024 End: 04-28-2024 ambulatory [facility] Facility:[facility] Start: 04-09-2024 End: 04-09-2024 Telephone encounter Anika Rizzo MORNING BABYSITTER.MILK TRUCK DRIVER Work Phone: [facility] Comment on above: Results Start: 04-07-2024 End: 04-07-[address] Jaclyn Martinez DO -Laboratory Work Phone: Start: 04-06-2024 End: 04-07-2024 ambulatory [facility] Facility:[facility] Start: 04-06-2024 End: 04-06-2024 Office outpatient visit 25 minutes Enoch Guan MORNING BABYSITTER.MILK TRUCK DRIVER Work Phone: [facility] Comment on above: Urinary frequency (P rimary Dx) Start: 03-08-2024 ambulatory Janine Webb lity:[facility] Start: 12-02-2023 End: 12-02-2023 ambulatory [facility] Facility:[facility] Start: 12-02-2023 End: 12-02-2023 Patient encounter procedure Jeni Andino MORNING BABYSITTER.MILK TRUCK DRIVER Work Phone: [facility] Comment on above: Cellulitis of skin ( Primary Dx) Start: 12-02-2023 End: 12-02-2023 ambulatory [facility] Facility:[facility] Start: 11-03-2023 ambulatory Jaclyn Ocampo cility:[facility] Start: 10-30-2023 End: 10-30-2023 ambulatory [facility] Facility:[facility] Start: 10-20-2023 ambulatory [facility] Start: 10-17-2023 End: 10-17-2023 ambulatory [facility] Facility:[facility] Start: 07-19-2023 End: 07-19-[address] Michael Aguirre Work Phone: [facility] Work Phone: Start: 07-19-2023 End: 07-19-[address] Michael Aguirre Work Phone: [facility]-Laboratory, Specimen Work Phone: Start: 07-07-2023 End: 07-07-2023 ambulatory MICHAEL AGUIRRE Facility:[facility] Start: 07-07-2023 End: 07-07-2023 Patient encounter procedure Angela Matute PA-C Work Phone: [facility] Comment on above: URI, acute (Primary Dx) Start: 06-17-2023 End: 06-17-[address] Michael Aguirre Work Phone: [facility] Work Phone: Start: 05-28-2023 Telephone encounter Anika wei MORNING BABYSITTER.MILK TRUCK DRIVER Work Phone: [facility] Comment on above: Results Start: 05-26-2023 Telephone encounter Adwoa Mancera MORNING BABYSITTER.MILK TRUCK DRIVER Work Phone: [facility] Comment on above: Results Start: 05-24-2023 End: 05-24-2023 Patient encounter procedure Anika Rizzo MORNING BABYSITTER.MILK TRUCK DRIVER Work Phone: [facility] Comment on above: Mouth pain (Primary Dx) Start: 05-08-2023 End: 05-08-[address] Michael Aguirer Work Phone: [facility] Work Phone: Start: 04-23-2023 End: 04-23-[address] Michael Aguirre Work Phone: [facility] Pulmonary Medicine Work Phone: Start: 04-11-2023 End: 04-11-[address] Michael Aguirre Work Phone: [facility] Work Phone: Start: 01-28-2023 End: 01-28-2023 Office outpatient visit 25 minutes Zurdo Niño APRN.CNP Work Phone: [facility] Comment on above: Urinary frequency (P rimary Dx) Start: 01-11-2023 End: 01-11-[address] Michael Aguirre Work Phone: [facility] Work Phone: Start: 01-11-2023 End: 01-11-[address] Michael Aguirre Work Phone: [facility]-Laboratory Work Phone: Start: 12-06-2022 End: 12-06-[address] Michael Aguirre Work Phone: [facility] Work Phone: Start: 12-04-2022 End: 12-04-2022 Patient encounter procedure Ant Hummel DO Work Phone: [facility] Comment on above: Injury of right midd le finger, initial encounter (Primary Dx) Start: 11-28-2022 End: 11-28-2022 Subsequent hospital visit by physician Zach [facility] Work Phone: Radiology Comment on above: Injury of finger of right hand, subsequent encounter [S69.91XD] Start: 11-28-2022 End: 11-28-2022 Patient encounter procedure Angela Matute PA-C Work Phone: [facility] Comment on above: Injury of finger of right hand, subsequent encounter (Primary Dx) Start: 11-26-2022 Telephone encounter Cassandra rubalcava MD Work Phone: [facility] Rheumatology and Arth[facility] Comment on above: No Show Start: 11-18-2022 End: 11-18-2022 Subsequent hospital visit by physician [facility] Work Phone: Radiology Comment on above: Injury of right midd le finger, initial encounter [S69.91XA] Start: 11-18-2022 End: 11-18-2022 Patient encounter procedure Adwoa Martines APRN.CNP Work Phone: [facility] Comment on above: Pain with urination (Primary Dx); Injury of right middle finger, initial encounter Start: 10-07-2022 End: 10-07-2022 Emergency department patient visit Dr. Michael Aguirre Work Phone: [facility]-Emergency Department Work Phone: Start: 10-02-2022 End: 10-02-[address] Michael Aguirre Work Phone: [facility] Work Phone: Start: 10-02-2022 End: 10-02-[address] Michael Aguirre Work Phone: [facility]-Laboratory, [facility] Start: 09-30-2022 End: 09-30-[address] Michael Aguirre Work Phone: [facility]-Pulmonary Medicine [facility] Work Phone: Start: 08-29-2022 End: 08-29-2022 Admission to same day surgery center Dr. Michael Aguirre Work Phone: [facility]-Surgical Day Care Start: 08-29-2022 End: 08-29-[address] Michael Aguirre Work Phone: [facility] Work Phone: Start: 08-28-2022 End: 08-28-[address] Michael Aguirre Work Phone: [facility]-Outpatient Breast Imaging Start: 08-20-2022 End: 08-20-[address] Michael Aguirre Work Phone: [facility] Work Phone: Start: 08-20-2022 End: 08-20-[address] Michael Aguirre Work Phone: [facility]-Laboratory, [facility] Start: 05-08-2022 End: 05-08-[address] Michael Aguirre Work Phone: [facility] Work Phone: Start: 05-08-2022 End: 05-08-[address] Michael Aguirre Work Phone: [facility]-Ultrasound, [facility] Start: 04-30-2022 End: 04-30-[address] Michael Aguirre Work Phone: [facility] Endocrinology Start: 04-23-2022 End: 04-23-[address] [facility] Start: 04-18-2022 End: 04-18-[address] Michael Aguirre Work Phone: [facility] Women's Care Start: 04-16-2022 End: 04-16-[address] Michael Aguirre Work Phone: [facility] Start: 03-26-2022 End: 03-26-[address] [facility] Start: 03-07-2022 End: 03-07-2022 Emergency department patient visit Dr. Michael Aguirre Work Phone: [facility]-Emergency Department Start: 03-02-2022 Telephone encounter Adwoa Mancera APRN.CNP Work Phone: [facility] Comment on above: Results Start: 02-28-2022 End: 02-28-2022 Patient encounter procedure Adwoa Martines APRN.CNP Work Phone: [facility] Comment on above: Urinary frequency (P rimary Dx); Wheezing Start: 02-11-2022 End: 02-11-2022 Patient encounter procedure Anika Rizzo JANICE Work Phone: [facility] Comment on above: URI, acute (Primary Dx); Acute cough Start: 12-28-2021 End: 12-28-2021 Emergency department patient visit Dr. Michael Aguirre Work Phone: [facility]-Emergency Department Start: 12-22-2021 End: 12-22-2021 Emergency department patient [facility] Start: 11-12-2021 End: 11-12-[address] Michael Aguirre Work Phone: [facility] Start: 10-31-2021 Non-patient / Non-visit Dr. Ludy Aguirre Work Phone: [facility] Start: 10-30-2021 End: 10-30-[address] Michael Aguirre Work Phone: [facility]-Radiology, [facility] Start: 09-27-2021 End: 09-27-[address] Michael Aguirre Work Phone: [facility]-Pulmonary Services/Neurology Start: 08-15-2021 End: 08-15-[address] Michael Aguirre Work Phone: [facility] Start: 08-01-2021 End: 08-01-[address] Michael Aguirre Work Phone: [facility]-Laboratory Start: 07-20-2021 End: 07-20-[address] 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 Michael Aguirre Work Phone: [facility]-Outpatient Breast Imaging Start: 06-29-2021 End: 06-29-[address] Michael Aguirre Work Phone: [facility]-Pulmonary Medicine [facility] Start: 06-28-2021 End: 06-28-2021 Patient encounter procedure Anika Rizzo APRN.MILK TRUCK DRIVER Work Phone: [facility] Comment on above: Pharyngitis, unspeci fied etiology (Primary Dx); Viral illness Start: 08-06-2012 Patient requested procedure Anika Rizzo APRN.MILK TRUCK DRIVER Work Phone: [facility] Work Phone: Procedures Date Procedure Procedure Detail Performing Clinician Start: 09-02-[address] Michael Aguirre DO Work Phone: Start: 04-06-2024 Urnls dip stick/tablet rgnt auto w/o microscopy Tessa Del Castillo APRN.MILK TRUCK DRIVER Work Phone: Start: 07-19-2023 Investigation of transfusion reaction Dr. Michael Aguirre Work Phone: Start: 07-19-[address] Michael Aguirre Work Phone: Start: 01-28-2023 Urnls dip stick/tablet rgnt auto w/o microscopy Angela Mautte PA-C Work Phone: Start: 11-28-2022 Radex fingr minimum 2 views Angela Matute PA-C Work Phone: Start: 11-18-2022 Radex fingr minimum 2 views Adwoa Cipriano Rico MORNING BABYSITTER.MILK TRUCK DRIVER Work Phone: Start: 11-18-2022 Urnls dip stick/tablet rgnt auto w/o microscopy Adwoa EstherRobel MORNING BABYSITTER.MILK TRUCK DRIVER Work Phone: Start: 08-29-[address] Michael Aguirre Work Phone: Start: 08-28-[address] Michael Aguirre Work Phone: Start: 08-20-[address] Michael Aguirre Work Phone: Start: 05-08-[address] Michael Aguirre Work Phone: Start: 03-07-2022 Plain chest X-ray Dr. Michael Aguirre Work Phone: Start: 02-28-2022 Urnls dip stick/tablet rgnt auto w/o microscopy Angela Matute PA-C Work Phone: Start: 12-28-2021 Plain chest X-ray Dr. Michael Aguirre Work Phone: Start: 10-30-[address] Michael mccullough Work Phone: Start: 09-27-2021 US scan of thyroid Dr. Michael Aguirre Work Phone: Start: 07-12-2021 Radex toe minimum 2 views Reggie Alvarez MORNING BABYSITTER.MILK TRUCK DRIVER Work Phone: Start: 07-06-[address] Michael Aguirre Work Phone: Start: 06-28-2021 STREP A MOLECULAR (POC) Anika Rizzo MORNING BABYSITTER.MILK TRUCK DRIVER Work Phone: Start: 07-23-2016 End: 07-24-2016 Thyroid stimulating hormone (TSH) Flory Anders QUANTITATIVE CONSULTANT Work Phone: Start: 07-23-2016 End: 07-24-2016 Thyroxine (T4) free Flory Anders QUANTITATIVE CONSULTANT Work Phone: Start: 07-23-2016 End: 07-24-2016 Triiodothyronine (T3) free Flory bella QUANTITATIVE CONSULTANT Work Phone: Cytopathology proced ure, preparation of smear, genital source Dr. Michael Aguirre Work Phone: History of appendectomy Hx of appendectom y Dr. Michael Aguirre Work Phone: History of cholecystectomy Hx of cholecys tectomy Dr. Michael Aguirre Work Phone: Investigation of transfusion reaction Dr. Michael Aguirre Work Phone: Urine culture Dr. Michael acosta Work Phone: Urine culture Dr. Michael acosta Work Phone: Viral antigen assay Dr. Avinash Khalilsay Work Phone: Plan of Treatment Date Care Activity Detail Author Start: 11-10-2029 Urine microalbumin profile DTaP,Tdap,Td Vaccine (5 - Td or Tdap) [facility] Start: 09-02-2024 [facility] Start: 11-23-2023 Covid-19 Vaccine ( season) Covid-19 Vaccine ( season) [facility] Start: 11-23-2023 Covid-19 Vaccine ( season) Covid-19 Vaccine ( season) [facility] Start: 11-23-2023 Influenza vaccination C [facility] Start: 04-23-2023 Patient referral [facility] Work Phone: Start: 11-22-2022 Covid-19 Vaccine ( season) Covid-19 Vaccine ( season) [facility] Start: 11-22-2022 Influenza vaccination C [facility] Start: 2022 Mammography [facility] Start: 2022 Screening for malign ant neoplasm of breast Mammogram Screening [facility] Start: 08-29-2022 Anes transurethral w/urethrocystoscopy nos ANESTH BLADDER SURGERY [facility] Start: 08-29-2022 Cysto calibration di lat urtl strix/stenosis CYSTOSCOPY AND TREATMENT [facility] Start: 08-29-2022 Patient discharge [facility] Start: 04-30-2022 Patient referral [facility] Work Phone: Start: 04-23-2022 Patient referral [facility] Work Phone: Start: 03-07-2022 Troponin I measurement [facility] Work Phone: Start: 02-11-2022 End: 02-25-2022 Influenza virus A and B RNA and SARS-CoV-2 (COVID-19) N gene panel - Respiratory specimen by [facility] with probe detection [facility] Work Phone: Comment on above: Expected: 02/11/2022 , Expires: 02/25/2022 Start: 12-28-2021 [facility] Work Phone: Start: 12-28-2021 Inhalation therapy procedure [facility] Work Phone: Start: 11-22-2021 Influenza vaccination INFLUENZA (#1) [facility] Start: 08-15-2021 Patient referral [facility] Work Phone: Start: 05-24-2019 PAP TESTING PAP TESTING [facility] Start: 05-24-2019 Screening for malign ant neoplasm of cervix [facility] Start: 04-26-2019 HPV TESTING HPV TESTING [facility] Start: 04-26-2019 Screening for malign ant neoplasm of cervix HPV Testing [facility] Start: 07-23-2016 End: 07-23-2016 Appointment Appointment [facility] Work Phone: Start: 07-23-2016 End: 07-24-2016 Thyroid stimulating hormone (TSH) *TSH [facility] Work Phone: Start: 07-23-2016 End: 07-24-2016 Thyroxine (T4) free *T4 free [facility] Work Phone: Start: 07-23-2016 End: 07-24-2016 Triiodothyronine (T3) free *T3-Free [facility] Work Phone: Start: 12-13-2014 Urine microalbumin profile [facility] Start: 2000 HEPATITIS C SCREENING HEPATITIS C [facility] Start: 2000 Hepatitis C screening Hepatitis C [facility] Start: 10-29-1987 COVID-19 VACCINE (1) COVID-19 VACCIN E (1) [facility] Start: 04-30-1983 COVID-19 VACCINE (#1) COVID-19 VACCI NE (#1) [facility] Start: 1982 HEPATITIS B (1 of 3 - 3-dose series) HEPATITIS B (1 of 3 - 3-dose series) [facility] Start: 1982 Hepatitis B Vaccine (1 of 3 - 3-dose series) Hepatitis B Vaccine (1 of 3 - 3-dose series) [facility] Bacteria identified in Urine by Culture URINE CULTURE Microbiology Routine Urinary frequency 02/28/2022 7:10 PM EST [facility] Work Phone: Bacteria identified in Urine by Culture URINE CULTURE Microbiology Routine Pain with urination 11/18/2022 4:00 PM EDT [facility] Work Phone: Bacteria identified in Urine by Culture URINE CULTURE Microbiology Routine Urinary frequency 01/28/2023 2:21 PM EST [facility] Work Phone: Bacteria identified in Urine by Culture BACTERIAL CULTURE, URINE Microbiology Routine Urinary frequency Ordered: 04/06/2024 [facility] Work Phone: Comment on above: Ordered: 04/06/2024 Fungus identified in Unspecified specimen by Culture FUNGAL SCREEN Microbiology Routine Mouth pain 05/24/2023 3:17 PM EST [facility] Work Phone: Liquid based cervica l cytology screening [facility] Measurement of respiratory function [facility] Work Phone: MG Breast - bilatera l Screening [facility] Patient Education [facility] Work Phone: Patient referral [facility] Work Phone: T4 free measurement [facility] Thyroid stimulating hormone measurement [facility] Troponin I measurement [facility] Work Phone: [facility] Immunizations Immunization Date Immunization Notes Care Provider Daniel jimenez 01-08-2021 influenza, injectabl e, quadrivalent, preservative free Dr. Michael Aguirre Work Phone: [facility] 01-08-2021 influenza, seasonal, injectable Dr. Michael Aguirre Work Phone: [facility] 01-08-2021 influenza virus vaccine, unspecified formulation Ant Robles DO Work Phone: [facility] 12-21-2019 influenza, injectabl e, quadrivalent, preservative free Dr. Michael Aguirre Work Phone: [facility] 12-21-2019 influenza, seasonal, injectable Dr. Michael Aguirre Work Phone: [facility] 12-19-[address] Michael Aguirre Work Phone: [facility] 11-11-2019 diphtheria, tetanus toxoids and acellular pertussis vaccine, unspecified formulation Dr. Michael Aguirre Work Phone: [facility] Work Phone: 11-11-2019 tetanus toxoid, redu ebony diphtheria toxoid, and acellular pertussis vaccine, adsorbed Dr. Michael Aguirre Work Phone: [facility] 12-17-2018 influenza, injectabl e, quadrivalent, preservative free Dr. Michael Aguirre Work Phone: [facility] 12-17-2018 influenza, seasonal, injectable Dr. Michael Aguirre Work Phone: [facility] 02-18-2018 hepatitis B vaccine, adult dosage Dr. Michael Aguirre Work Phone: [facility] 12-19-2017 influenza, injectabl e, quadrivalent, preservative free Dr. Michael Aguirre Work Phone: [facility] 12-19-2017 influenza, seasonal, injectable Dr. Michael Aguirre Work Phone: [facility] 09-17-2017 hepatitis B vaccine, adult dosage Dr. Michael Aguirre Work Phone: [facility] 08-14-2017 hepatitis B vaccine, adult dosage Dr. Michael Aguirre Work Phone: [facility] 08-14-2017 tetanus toxoid, redu ebony diphtheria toxoid, and acellular pertussis vaccine, adsorbed Dr. Michael Aguirre Work Phone: [facility] 10-06-2012 RHO(D) immune globul in- IV or IM Anika Rizzo MORNING BABYSITTER.[facility] Work Phone: [facility] Work Phone: 12-13-2011 influenza virus vaccine, unspecified formulation Anika Rizzo MORNING BABYSITTER.[facility] Work Phone: [facility] Work Phone: 08-28-2011 RHO(D) immune globul in- IV or IM Anika Rizzo MORNING BAB[employer]TER[employer] Work Phone: [facility] Work Phone: 03-14-2011 RHO(D) immune globul in- IV or IM Anika Rizzo MORNING BABYSITTER[employer] Work Phone: [facility] 12-22-2010 influenza virus vaccine, unspecified formulation Anika Rizzo MORNING BABYSITTER.[facility] Work Phone: [facility] Work Phone: 01-04-2010 influenza virus vaccine, unspecified formulation Anika Rizzo MORNING BABYSITTER[employer] Work Phone: [facility] Work Phone: 06-25-2006 RHO(D) immune globul in- IV or IM Anika Rizzo MORNING BABYSITTER[employer] Work Phone: [facility] Work Phone: 01-27-2006 influenza virus vaccine, unspecified formulation Anika Rizzo MORNING BABYSITTER.[facility] Work Phone: [facility] 12-13-2004 diphtheria and tetan us toxoids, adsorbed for pediatric use Anika Rizzo MORNING BABYSITTER.[facility] Work Phone: [facility] Work Phone: Payers Date Payer Category Payer Self-pay [id number] 2023 Private Health Insurance MMO SUP [employer] PPO [id number] 2023 Unknown [id number] 2018 Unknown MMO MMO TPA [id number] 2018-Present [address] [place] [address] PPO [id number] 2018 Unknown [id number] 2012 Unknown [id number] 2012 Unknown [id number] 2012 Unknown [employer] [id number] 2010 Medicaid [employer] A[employer] MEDICAID [id number] 2010-Present [phone] [address] [place] [address] Medicaid [id number] 2010 Medicaid [id number] Unknown [id number] [id number]. 462 Unknown [id number] 2.16.840.1.217142.3.579.2. 462 Unknown [id number] 2.16.840.1.601218.3.579.2. 462 Unknown [id number] 2.16.840.1.980002.3.579.2. 462 Unknown [id number] 2.16.840.1.033530.3.579.2. 462 Unknown [id number] 2.16.840.1.093403.3.579.2. 462 Unknown [id number] 2.16.840.1.669488.3.579.2. 462 Unknown [id number] 2.16.840.1.871083.3.579.2. 462 Unknown [id number] 2.16.840.1.784013.3.579.2. 462 Unknown [id number] 2.16.840.1.650425.3.579.2. 462 Unknown [id number] 2.16.840.1.449123.3.579.2. 462 Unknown [id number] 2.16.840.1.336943.3.579.2. 462 Unknown [id number] 2.16.840.1.129002.3.579.2. 462 Unknown [id number] 2.16.840.1.739983.3.579.2. 462 Unknown [id number] 2.16.840.1.902849.3.579.2. 462 Unknown [id number] 2.16.840.1.934684.3.579.2. 462 Unknown [id number] 2.16.840.1.027756.3.579.2. 462 Unknown [id number]. 462 Social History Date Type Detail Facility Start: 11-28-2021 End: 09-28-2024 Tobacco smoking status NHIS Ex-smoker [facility] End: 12-17-2005 History of tobacco use Current smoker [facility] Start: 06-28-2021 End: 06-23-2024 Alcohol intake Current drinker of alcohol (finding) [facility] Start: 04-18-2011 History SDOH Alcohol Comment Seldom, NOT DURING [facility] Start: 1980 Sex Assigned At Not on file [facility] Start: 06-18-2021 End: 07-12-2021 Exposure to SARS-CoV-2 (event) Not sure [facility] Start: 06-29-2021 End: 06-17-2023 Tobacco smoking status KYIS Unknown if ever smoked [facility] Start: 12-09-2019 None [facility] Start: 1980 Sex Assigned At Female [facility] End: 12-17-2005 History of tobacco use Cigarette Smoker [facility] Start: 11-28-2021 End: 12-02-2023 Tobacco use and exposure Smokeless tobacco non-user [facility] Start: 11-28-2021 Tobacco Comment quit one year ago [facility] Start: 11-05-2022 End: 11-18-2022 History of Social function [facility] Start: 11-05-2022 End: 11-18-2022 Tobacco use panel [facility] National Score (1-100), lower number is lower risk 91 [facility] Start: 06-10-2024 Sex Female (finding) [facility] NEGATED: Highlighted row [facility] Medical Equipment Procedure Code Equipment Code Equipment Origin al Text Equipment Identifier Dates CLIP,FILSHIE SYSTEM FDA Start : 01-05-2020 CLIP,FILSHIE SYSTEM FDA Start : 01-05-2020 CLIP,FILSHIE SYSTEM FDA Start : 01-05-2020 CLIP,FILSHIE SYSTEM FDA Start : 01-05-2020 CLIP,FILSHIE SYSTEM FDA Start : 01-05-2020 CLIP,FILSHIE SYSTEM FDA Start : 01-05-2020 CLIP,FILSHIE SYSTEM FDA Start : 01-05-2020 CLIP,FILSHIE SYSTEM FDA Start : 01-05-2020 CLIP,FILSHIE SYSTEM FDA Start : 01-05-2020 CLIP,FILSHIE SYSTEM FDA Start : 01-05-2020 CLIP,FILSHIE SYSTEM FDA Start : 01-05-2020 CLIP,FILSHIE SYSTEM FDA Start : 01-05-2020 CLIP,FILSHIE SYSTEM FDA Start : 01-05-2020 CLIP,FILSHIE SYSTEM FDA Start : 01-05-2020 CLIP,FILSHIE SYSTEM FDA Start : 01-05-2020 CLIP,FILSHIE SYSTEM FDA Start : 01-05-2020 CLIP,FILSHIE SYSTEM FDA Start : 01-05-2020 CLIP,FILSHIE SYSTEM FDA Start : 01-05-2020 CLIP,FILSHIE SYSTEM FDA Start : 01-05-2020 Goals Date Patient Goal Desired Activity /State Functional Status Date Assessment Result Facility 05-23-2014 Are you deaf, or do you have serious difficulty hearing No 05/23/2014 11:45 AM Yuridia Knox LPN No [facility] 05-23-2014 Are you blind, or do you have serious difficulty seeing, even when wearing glasses No 05/23/2014 11:45 AM Yuridia Knox LPN No [facility] 05-23-2014 Do you have serious difficulty walking or climbing stairs No 05/23/2014 11:45 AM Yuridia Knox LPN [facility] 05-23-2014 Do you have difficul ty dressing or bathing No 05/23/2014 11:45 AM Yuridia Knox LPN No [facility] 05-23-2014 Because of a physica l, mental, or emotional condition, do you have difficulty doing errands alone such as visiting a physician's office or shopping No 05/23/2014 11:45 AM Yuridia Knox LPN [facility] Mental Status Date Assessment Result Facility 08-29-2022 Cognitive function Level Of Cons ciousness Follows Commands;Drowsy [facility] Work Phone: 08-29-2022 Cognitive function Patient Anne Marie berman Person;Place;Time [facility] Work Phone: 03-07-2022 Cognitive function Level Of Cons ciousness Awake;Alert;Appropriate;Fol lows Commands [facility] Work Phone: 05-23-2014 Because of a physica l, mental, or emotional condition, do you have serious difficulty concentrating, remembering, or making decisions No 05/23/2014 11:45 AM Yuridia Knox LPN No [facility] Clinical Notes 05-25-2012 to 09-02-2024 Note Date & Type Note Facility 09-02-2024 Discharge summary [facility] 09-02-2024 Discharge summary Note Date/Time September 02, 2024 3:58pm [facility] Medical Records Department [address] [place] [address] Emergency Department Summary 09/02/24 MR#: [id number] Acct: [id number] Name: JACLYN MAE Rep #:[id number] : 1980 43 From: Joaquín Sousa DO PCP: Care Physician,No Primary Status :REG ER Location: ED HPI HPI - Psych History of Present Illness Chief Complaint: Mental Health Detail of Chief Complaint: Anxiety and depression Informant: patient Narrative Narrative: Patient presents with complaint of feeling anxious and depressed because she hasbeen without her medication for about a month. Patient states her doctor retired and has not established with a new physician. Over last 3 days she has been feeling anxious and shaky. Today she went to the dentist and could not tolerate the procedure and was just not acting like herself so she was advised to come in and get evaluated. Patient states that at times her hearts been fluttering and she states sometimes that was related to her thyroid being out of whack. She does not take thyroid medications. She denies feeling suicidal or homicidal. [facility] Medical History Wears contact lenses MRSA infection Thyroid disease Bladder disease Anemia History of hiatal hernia History of IBS Gastric reflux Former smoker History of stress test History of echocardiogram Thyroid nodule Abnormal results of thyroid function studies Prediabetes Anxiety depression Asthma GERD (gastroesophageal reflux disease) Anxiety and depression Home Medications ?Medication ?Instructions ?Recorded ?Last Taken ?Type citalopram 40 mg tablet 40 mg PO DAILY depression #9 0 tabs 08/15/21 Unknown Rx albuterol sulfate 90 mcg/actuation 2 puff inhalation Q 4H PRN 04/23/23 Unknown Rx aerosol inhaler shortness of breath or wheez ing #1 ea budesonide-formoterol HFA 160 2 puff inhalation BID #1 0.2 grams 04/23/23 Unknown Rx mcg-4.5 mcg/actuation aerosol inhaler (Symbicort) cetirizine 10 mg capsule 10 mg PO HS #90 caps 4 Unknown Rx epinephrine 0.3 mg/0.3 mL 0.3 ml IM PRN as needed for 04/23/23 Unknown History injection, auto-injector allergic reaction fluticasone propionate 50 2 spray intranasal DAILY #16 grams 04/23/23 Unknown Rx mcg/actuation nasal spray,suspension spacer #1 ea 04/23/23 Unknown Rx tiotropium bromide 1.25 2 puff inhalation DAILY #4 g danis 04/23/23 Unknown Rx mcg/actuation mist for inhalation (Spiriva Respimat) topiramate 50 mg tablet 50 mg PO BID #60 tabs Unknown Rx phentermine 37.5 mg tablet 18.75 mg (1/2 x 37.5 mg) PO QDAY 06/30/24 Unknown Rx (Adipex-P) #16 tabs citalopram 40 mg tablet (Celexa) 40 mg PO DAILY #30 ta bs 09/02/24 Unknown Rx lorazepam 1 mg tablet (Ativan) 1 mg PO TID PRN anxiety #10 tabs 09/02/24 Unknown Rx Allergy/AdvReac Type Severity Reaction Status Date / Time ampicillin Allergy Itching Verified 09/02/24 14:20 Fish Containing Products Allergy Shortness Verified 09/02/24 14:20 of breath Penicillins (PCN) Allergy Shortness Verified 09/02/24 14:20 of breath clindamycin AdvReac Pain in Verified 09/02/24 14:20 joints Family History Mother ADALBERTO III (cervical intraepithelial neoplasia grade III) with severe dysplasia Diabetes Thyroid disorder Grandmother Diabetes Thyroid disorder Other CVA (cerebral vascular accident) Kidney disease Surgical History History of tubal ligation Hx of cholecystectomy Hx of appendectomy Social History adopted: No household members: family housing: house number of children: 6 current occupational status: employed current occupation: [employer] pets and animals: No history of recent travel: No Smoking Status: Former smoker second hand exposure: No alcohol intake: never substance use type: does not use caffeine: No what type of physical activity do you participate in: walking, bicycling and weight training frequency: 3-4 times per week seatbelt use: always do you feel safe at home: Yes additional social history: Boyfriend- Chaz ROWE ROS ED Review of Systems ROS Unobtainable: other Constitutional Constitutional ED: Reports lethargy; Denies chills, fever(s), sweats or weight loss Eyes Eyes: Denies blurry vision, change in vision or diplopia ENT ENT ED: Denies rhinorrhea or sore throat Cardiovascular Cardiovascular: Reports palpitations and racing heartbeat; Denies chest pain or orthopnea Respiratory/Chest Respiratory/Chest: Denies cough, dyspnea, dyspnea on exertion, orthopnea or sputum Gastrointestinal Gastrointestinal: Denies abdominal pain, diarrhea, nausea or vomiting Genitourinary Genitourinary ED: Denies dysuria, hematuria or urinary frequency Musculoskeletal Musculoskeletal: Denies arthralgias, back pain, myalgias or neck pain Integumentary Denies abscess, Abrasions or rash Neurologic Neurologic: Denies headache(s) or weakness Psychiatric Psychiatric: Reports anxiety and depression; Denies suicidal thoughts Endocrine Endocrinology: Denies polydipsia, polyphagia or polyuria Hematologic/Lymphatic Hematologic/Lymphatic: Denies easy bleeding, easy bruising or lymphadenopathy Allergic/Immunologic Allergic/Immunologic ED: Denies mouth swelling, tongue swelling or urticaria EXAM Physical Exam Const Vital Signs: 09/02/24 14:18 Temperature 97.9 F Temperature Source Temporal Pulse Rate 106 H Respiratory Rate 16 Blood Pressure 143/82 H Blood Pressure Mean 102 Pulse Ox 100 Oxygen Delivery Method Room Air Positive well nourished and well developed General Appearance ED: well developed and NAD HEENT Reports TM's clear and moist mucous membranes normocephalic and atraumatic; Negative for trauma or tenderness Tympanic Membrane ED: Yes TM's clear Eyes PERRL and EOMs intact bilaterally General Eye ED: Negative for pale conjunctiva or scleral icterus Neck no lymphadenopathy, supple and no JVD General: Negative for tenderness Chest Wall inspection of chest normal and palpation of chest normal Chest: Negative for tenderness Resp normal respiratory effort and clear to auscultation bilaterally Effort and Inspection: Negative for respiratory distress or pain with movement Auscultation: Negative for rhonchi, wheezes or diminished lung sounds Cardio regular rate, regular rhythm, S1 normal heart sound, S2 normal heart sound and no murmurs Peripheral Pulses: pulses 2+ throughout GI normal to inspection, nondistended, normoactive bowel sounds, soft to palpation,non-tender, non-distended and no masses Back/Spine no CVA tenderness and no thoracic nor lumbar tenderness Extremity normal to inspection General Extremety ED: Negative for edema General Extremity: Negative for edema Neuro oriented x3, CN's II-XII intact bilaterally, no sensory deficits noted and gait normal Sensorium / Orientation: awake, alert, oriented to person, oriented to place andoriented to time Motor Exam: strength 5/5 throughout and strength abnormal Psych mental status grossly normal Skin no rashes or lesions noted and no wounds MDM MDM MDM Narrative Medical decision making narrative: Patient presents with anxiety and depression and ran out of her medications about a month ago. Not suicidal or homicidal. Not hallucinating. Clinically looks well. IV line established. CBC with differential obtained showed a whitecount 7.6 with hemoglobin 13 and platelet count of 319. Chemistries unremarkable. TSH was normal at 3.0. EKG obtained arrival showed a sinus rhythm with ventricular rate of 98 bpm with occasional PACs but no acute ST segment changes Lab Data Attestation: I reviewed the patient's lab results. Labs: Laboratory Results - last 24 hr 09/02/24 14:38 WBC 7.6 RBC 4.35 Hgb 13.0 Hct 38.9 MCV 89.4 MCH 29.9 MCHC 33.4 RDW Std Deviation 40.7 RDW Coeff of Lamine 12.3 Plt Count 319 MPV 8.5 Immature Gran % (Auto) 0.300 Neut % (Auto) 52.7 Lymph % (Auto) 31.8 [place] % (Auto) 10.2 H Eos % (Auto) 4.2 Baso % (Auto) 0.8 Absolute Neuts (auto) 4.0 Absolute Lymphs (auto) 2.40 Nucleated RBC % 0 Sodium 138 Potassium 3.4 Chloride 105 Carbon Dioxide 22.2 Anion Gap 11 BUN 14 Creatinine 0.77 Estim Creat Clear Calc 101.09 Est GFR (MDRD) Non-Af 99 BUN/Creatinine Ratio 18.5 Glucose 100 H Calcium 9.0 TSH 3.000 EKG Initial EKG: Attestation: I personally reviewed and interpreted this EKG as follows: Comments: Sinus rhythm with ventricular rate of 98 bpm with occasional PACs Discharge Plan Triage Chief Complaint: Mental Health ED Provider: Joaquín Sousa Dx/Rx/DC Orders Clinical Impression: Depression, Anxiety, Medication refill Instructions: ED Anxiety Reaction, ED Depression Prescriptions: New citalopram [Celexa] 40 mg tablet 40 mg PO DAILY Qty: 30 0RF lorazepam [Ativan] 1 mg tablet 1 mg PO TID PRN (Reason: anxiety) Qty: 10 0RF No Action citalopram 40 mg tablet 40 mg PO DAILY Qty: 90 3RF epinephrine 0.3 mg/0.3 mL auto-injector 0.3 ml IM PRN (Reason: as needed for allergic reaction) Patient Comments: Inject one syringe in the outer thigh as needed for allergic reaction albuterol sulfate 90 mcg/actuation HFA aerosol inhaler 2 puff INHALATION Q4H PRN (Reason: shortness of breath or wheezing) Qty: 1 3RF Rx Instructions: administer with spacer budesonide-formoterol [Symbicort] 160-4.5 mcg/actuation HFA aerosol inhaler 2 puff inhalation BID Qty: 10.2 6RF cetirizine 10 mg capsule 10 mg PO HS Qty: 90 3RF fluticasone propionate 50 mcg/actuation spray,suspension 2 spray intranasal DAILY Qty: 16 3RF Spiriva Respimat 1.25 mcg/actuation mist 2 puff inhalation DAILY Qty: 4 6RF (DME) spacer See Rx Instructions .ROUTE .MEDSUPPLY Qty: 1 0RF Rx Instructions: As directed phentermine [Adipex-P] 37.5 mg tablet 18.75 mg PO QDAY Qty: 16 0RF Rx Instructions: must administer 30 minutes before or 1-2 hours after breakfast topiramate 50 mg tablet 50 mg PO BID Qty: 60 12RF Rx Instructions: take before breakfast and before dinner, take 1/2 tab BID x two weeks then full tab BID Primary Care Provider: Care Physician,No Primary Referrals: Michael Aguirre DO [Non-Staff] - Print Language: Nepali Disposition Disposition: Home, Self Care What to do if you have Problems For any increased pain, shortness of breath, bleeding, nausea or vomiting, chestpain, or any unexpected problems, contact your Primary Care Provider. Call [facility] ([phone]) or report to the closest Emergency Room. Call 911 if necessary. 09/02/24 1426 <Electronically signed by Joaquín Sousa DO> Cosigner Signature (if applicable): CC: No Primary Care Physician ~ Signed [facility] Work Phone: 1(260) 581-959204-09-2025 Evaluation note* Diagnosis Onset Date Resolution Status Admit Date GERD (gastroesophageal reflu x disease) acute June 30, 2024 2:33pm Obesity acute June 30 2:33pm Prediabetes acute June 30 2:33pm [facility] Work Phone: 1(854) 845-854404-09-2025 Evaluation note* Diagnosis Onset Date Resolution Status Admit Date GERD (gastroesophageal reflu x disease) acute June 30, 2024 2:33pm Obesity acute June 30 2:33pm Prediabetes acute June 30 2:33pm Obesity acute September 28, 2024 2:19pm Prediabetes acute September 28 2:19pm SKYE (stress urinary incontinence, female) acute September 28, 2024 2:19pm Anxiety and depression chronic Ju ly 2024 2:19pm [facility] Work Phone: [phone]) 900-570004-09-2025 Evaluation note* Diagnosis Onset Date Resolution Status Admit Date GERD (gastroesophageal reflu x disease) acute June 30, 2024 2:33pm Obesity acute June 30 2:33pm Prediabetes acute June 30 2:33pm Obesity acute September 28, 2024 2:19pm Prediabetes acute September 28 2:19pm SKYE (stress urinary incontinence, female) acute September 28, 2024 2:19pm Anxiety and depression chronic Ju ly 2024 2:19pm Encounter for routine gynecological examination noneactive September 232024 2:54pm [facility] Work Phone: 1(706) 394-205104-02-2025 NoteHNO ID: [id number] Author: ALYSON MAJANO PA-C Service: ? Author Type: Physician Pulmonary Care Nurse Type: Progress Notes Filed: 06/23/2024 12:12 Note Text: This note was created using [employer]. Subjective Jaclyn Mae is a 43 year old female. Patient is a 43-year-old female who arrives for evaluation of 2 separate complaints. Patient reports intense redness and irritation to her left eye that is developed over the past 1 day. Patient does wear contact lenses and states that she is experiencing irritation and increased tearing to her left eye. Patient denies injury or foreign body other than the contact lens. Patient reports no matting or discharge to her left eye. Patient denies acute changes to her vision. Patient states that her right eye is asymptomatic. Patient also complains of increasing pain to her left mandibular first premolar that has been worsening for the past 2 weeks. Patient states that she did fracture part of the tooth and believes that it is now infected. Patient denies bleeding, serousappearing fluid to the tooth and gingiva. Patient does have a dentist buthas not been evaluated for her tooth fracture and pain. Eye Problem Review of Systems HENT: Positive for dental problem. Eyes: Positive for discharge, redness and itching. Negative for photophobia, pain and visual disturbance. All other systems reviewed and are negative. Objective BP 122/80 Pulse 77 Temp 36.4 ?C (97.5 ?F) (Tympanic) Resp 18 Wt 70.9 kg (156 lb 4.9 oz) LMP 06/05/2021 SpO2 100% BMI 25.23 kg/m? Physical Exam Vitals and nursing note reviewed. Constitutional: Appearance: Normal appearance. She is normal weight. HENT: Head: Normocephalic and atraumatic. Right Ear: External ear normal. Left Ear: External ear normal. Nose: Nose normal. Mouth/Throat: Mouth: Mucous membranes are moist. Pharynx: Oropharynx is clear. Comments: Approximate 50% fracture of the left mandibular premolar is noted. Tooth fragment is black and there is no bleeding, serous or purulent fluid noted. Associated gingiva is clear and there is no evidence of abscess. There is no degree of soft tissue edema noted to the left face. Buccal mucosa is clear. No trismus is noted and the patient's speech is clear. Eyes: General: Right eye: No discharge. Left eye: No discharge. Extraocular Movements: Extraocular movements intact. Pupils: Pupils are equal, round, and reactive to light. Comments: Intense diffuse erythema and injection is noted to the left conjunctiva. No matting or discharge is noted to the left eye. Left superior and inferior eyelids are clear without erythema or edema. Left periorbital skin is clear without erythema or edema. Exam of the right conjunctiva, eyelids and periorbital skin is unremarkable. Pupils are equal, round and reactive to light and accommodation and the patient demonstrates full extraocular range of motion bilaterally. Visual acuity is intact as documented by the FIELD CONSULTANT. Cardiovascular: Rate and Rhythm: Normal rate. Pulses: Normal pulses. Pulmonary: Effort: Pulmonary effort is normal. Breath sounds: Normal breath sounds. Musculoskeletal: Cervical back: Normal range of motion and neck supple. Skin: General: Skin is warm and dry. Capillary Refill: Capillary refill takes less than 2 seconds. Neurological: General: No focal deficit present. Mental Status: She is alert and oriented to person, place, and time. Psychiatric: Mood and Affect: Mood normal. Behavior: Behavior normal. Thought Content: Thought content normal. Judgment: Judgment normal. Assessment and Plan Physical exam findings as noted above. Patient does have allergies to both penicillin and clindamycin, therefore she was provided with a prescription for doxycycline 100 mg. Patient also received a prescription for erythromycin 0.5% ophthalmic ointment and instructions for application were discussed. Patient verbalizes clear understanding of same. CLINICAL IMPRESSION: Dental Infection; Acute Conjunctivitis Left Eye ASSESSMENT/PLAN: 1. Acute conjunctivitis of left eye, unspecified acute conjunctivitis type - ICD9: 372.00, ICD10: H10.32 (primary diagnosis) - ERYTHROMYCIN 5 MG/GRAM (0.5 %) EYE OINTMENT 2. Dental infection - ICD9: 522.4, ICD10: K04.7 - DOXYCYCLINE HYCLATE 100 MG TABLET MDM Risk of Complications, Morbidity, and/or Mortality Presenting problems: low Diagnostic procedures: low Management options: MARLENE [facility]04-02-2025 History of Present illness Narrative* Alyson Majano PA-C - 06/23/2024 12:02 PM EDT This note was created using [employer]. Subjective Jaclyn Mae is a 43 year old female. Patient is a 43-year-old female who arrives for evaluation of 2 separate complaints. Patient reports intense redness and irritation to her left eye that is developed over the past 1 day. Patient doeswear contact lenses and states that she is experiencing irritation and increased tearing to her left eye. Patient denies injury or foreign body other than the contact lens. Patient reports no mattingor discharge to her left eye. Patient denies acute changes to her vision. Patient states that her right eye is asymptomatic. Patient also complains of increasing pain to her left mandibular first premolar that has been worsening for the past 2 weeks. Patient states that she did fracture part of the tooth and believes that it is now infected. Patient denies bleeding, serous appearing fluid to the tooth and gingiva. Patient does have a dentist but has not been evaluated for her tooth fracture andpain. Eye Problem Review of Systems HENT: Positive for dental problem. Eyes: Positive for discharge, redness and itching. Negative for photophobia, pain and visual disturbance. All other systems reviewed and are negative. Objective BP 122/80 Pulse 77 Temp 36.4 C (97.5 F) (Tympanic) Resp 18 Wt 70.9 kg (156 lb 4.9 oz) LMP06/05/2021 SpO2 100% BMI 25.23 kg/m Physical Exam Vitals and nursing note reviewed. Constitutional: Appearance: Normal appearance. She is normal weight. HENT: Head: Normocephalic and atraumatic. Right Ear: External ear normal. Left Ear: External ear normal. Nose: Nose normal. Mouth/Throat: Mouth: Mucous membranes are moist. Pharynx: Oropharynx is clear. Comments: Approximate 50% fracture of the left mandibular premolar is noted. Tooth fragment is black and there is no bleeding, serous or purulent fluid noted. Associated gingiva is clear and there isno evidence of abscess. There is no degree of soft tissue edema noted to the left face. Buccal mucosa is clear. No trismus is noted and the patient's speech is clear. Eyes: General: Right eye: No discharge. Left eye: No discharge. Extraocular Movements: Extraocular movements intact. Pupils: Pupils are equal, round, and reactive to light. Comments: Intense diffuse erythema and injection is noted to the left conjunctiva. No matting or discharge is noted to the left eye. Left superior and inferior eyelids are clear without erythema or edema. Left periorbital skin is clear without erythema or edema. Exam of the right conjunctiva, eyelids and periorbital skin is unremarkable. Pupils are equal, round and reactive to light and accommodation and the patient demonstrates full extraocular range of motion bilaterally. Visual acuity is intact as documented by the FIELD CONSULTANT. Cardiovascular: Rate and Rhythm: Normal rate. Pulses: Normal pulses. Pulmonary: Effort: Pulmonary effort is normal. Breath sounds: Normal breath sounds. Musculoskeletal: Cervical back: Normal range of motion and neck supple. Skin: General: Skin is warm and dry. Capillary Refill: Capillary refill takes less than 2 seconds. Neurological: General: No focal deficit present. Mental Status: She is alert and oriented to person, place, and time. Psychiatric: Mood and Affect: Mood normal. Behavior: Behavior normal. Thought Content: Thought content normal. Judgment: Judgment normal. Assessment and Plan Physical exam findings as noted above. Patient does have allergies to both penicillin and clindamycin, therefore she was provided with a prescription for doxycycline 100 mg. Patient also received a prescription for erythromycin 0.5% ophthalmic ointment and instructions for application were discussed. Patient verbalizes clear understanding of same. CLINICAL IMPRESSION: Dental Infection; Acute Conjunctivitis Left Eye ASSESSMENT/PLAN: 1. Acute conjunctivitis of left eye, unspecified acute conjunctivitis type - ICD9: 372.00, ICD10: H10.32 (primary diagnosis) - ERYTHROMYCIN 5 MG/GRAM (0.5 %) EYE OINTMENT 2. Dental infection - ICD9: 522.4, ICD10: K04.7 - DOXYCYCLINE HYCLATE 100 MG TABLET MDM Risk of Complications, Morbidity, and/or Mortality Presenting problems: low Diagnostic procedures: low Management options: ti Majano PA-C documented [facility] NoteHNO ID: [id number] Author: TESSA DEL CASTILLO APRN.[facility] Service: ? Author Type: Nurse Practitioner Type: Progress Notes Filed: 05/17/2024 20:10 Note Text: Subjective Complaints of dental pain for a few days. Patient says it is staying the same. Patient denies any fever chills nausea vomiting or difficulty opening her jaw. Patient denies any other symptoms. The history is provided by the patient. No sign language teacher was used. Dental Problem Review of Systems Constitutional: Negative. Skin: Negative. Objective Physical Exam Constitutional: Appearance: Normal appearance. HENT: Mouth/Throat: Comments: Pain is in the area marked above. There is some mild redness and swelling. Patient does have significant dental caries. Patient is able to open her mouth completely. Uvula midline. No difficulty swallowing. Pulmonary: Effort: Pulmonary effort is normal. Neurological: Mental Status: She is alert. PAST MEDICAL HISTORY Diagnosis Date Abdominal pain, epigastric Acute gastritis without mention of hemorrhage Anemia Anxiety disorder in conditions classified elsewhere Chronic cholecystitis FRACTURE AGE 10 WRIST,FALL ON ICE GERD (gastroesophageal reflux disease) Helicobacter pylori (H. 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 [place] DILATION AND CURETTAGE DXAND/THER NONOBSTETRIC 2004 Dilation AND curettage, EGD TRANSORAL BIOPSY SINGLE/MULTIPLE 05/22/07 INSERT INTRAUTERINE DEVICE 11/2006 Mirena, Removed 05/17/2009 IUD INSERTION (FORMING MACHINE ADJUSTER DEPT)_*FL 05/17/2009 Paragard LAPS SURG CHOLECYSTECTOMY W/CHOLANGIOGRAPHY 04/08/08 ALLERGIES Clindomycin [Clindamycin] and Penicillins MEDICATIONS topiramate (TOPAMAX) 50 mg tablet take 50 mg orally twice a day; take before breakfast and before dinner, take ONE-HALF tab TWICE DAILY TIME two weeks then full tab TWICE DAILY SPIRIVA RESPIMAT 1.25 mcg/actuation inhaler inhale 2 (TWO) puffs BY MOUTH EVERY DAY montelukast (SINGULAIR) 10 mg tablet benzonatate (TESSALON PERLES) 100 mg capsule Take 2 capsules by mouth three times a day as needed. (Patient not taking: Reported on 05/17/2024) Phentermine HCl 37.5 mg tablet Take 37.5 mg by mouth daily before breakfast. diclofenac (VOLTAREN) 1 % topical gel Apply 2 g to affected area four times daily. albuterol HFA (PROVENTIL HFA, VENTOLIN HFA) 90 mcg/actuation inhaler Inhale 2 Puffs as instructed every 4 hours as needed for wheezing/shortness of breath. pantoprazole DR (PROTONIX) 40 mg tablet Take [...] Inhale 1 Puff as instructed twice daily. EPINEPHrine (EPIPEN) 0.3 mg/0.3 mL (1:1,000) atIn Inject intramuscularly. use as directed for allergic reaction. Seek emergent medical care immediately after use. FAMILY HISTORY Problem Relation Age of Onset Arthritis Father Hypertension Father Lipids Father Arthritis Maternal Grandmother Diabetes Maternal Grandmother Diabetes Maternal Grandfather Heart Paternal Grandmother Psychiatry Paternal Grandfather Diabetes Paternal Grandfather Prostate Cancer Paternal Grandfather Heart Paternal Uncle other (ADD) Daughter other (ADHD) Son Social History Tobacco Use Smoking status: Former Current packs/day: 0.00 Types: Cigarettes Quit date: 12/17/2005 Years since quittin.4 Smokeless tobacco: Never Tobacco comments: quit one year ago Substance Use Topics Alcohol use: Yes Comment: Seldom, NOT DURING Drug use: No ASSESSMENT/PLAN: 1. Pain, dental - ICD9: 525.9, ICD10: K08.89 - AZITHROMYCIN 250 MG TABLET Patient cannot take clindamycin. Patient is allergic to amoxicillin with shortness of breath so cannot tolerate Keflex. Best option is azithromycin even with medication interaction. Patient was educated about proper use of medication and supportive therapies. Patient was educated to monitor for signs of worsening. Patient was agreeable to this care plan. Tessa Del Castillo APRN.[facility] History of Present illness Narrative* Tessa Del Castillo APRN.[facility] - 05/17/2024 8:03 PM EST Images from the original note were not included. Subjective Complaints of dental pain for a few days. Patient says it is staying the same. Patient denies any fever chills nausea vomiting or difficulty opening her jaw. Patient denies any other symptoms. The history is provided by the patient. No sign language teacher was used. Dental Problem Review of Systems Constitutional: Negative. Skin: Negative. Objective Physical Exam Constitutional: Appearance: Normal appearance. HENT: Mouth/Throat: Comments: Pain is in the area marked above. There is some mild redness and swelling. Patient does have significant dental caries. Patient is able to open her mouth completely. Uvula midline. No difficulty swallowing. Pulmonary: Effort: Pulmonary effort is normal. Neurological: Mental Status: She is alert. PAST MEDICAL HISTORY Diagnosis Date Abdominal pain, epigastric Acute gastritis without mention of hemorrhage Anemia Anxiety disorder in conditions classified elsewhere Chronic cholecystitis FRACTURE AGE 10 WRIST,FALL ON ICE GERD (gastroesophageal reflux disease) Helicobacter pylori (H. 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 [place] DILATION & CURETTAGE DX&/THER NONOBSTETRIC 2005 Dilation & curettage, EGD TRANSORAL BIOPSY SINGLE/MULTIPLE 05/22/07 INSERT INTRAUTERINE DEVICE 11/2006 Mirena, Removed 05/17/2009 IUD INSERTION (FORMING MACHINE ADJUSTER DEPT)_*FL 05/17/2009 Paragard LAPS SURG CHOLECYSTECTOMY W/CHOLANGIOGRAPHY 04/08/08 ALLERGIES Clindomycin [Clindamycin] and Penicillins MEDICATIONS topiramate (TOPAMAX) 50 mg tablet take 50 mg orally twice a day; take before breakfast and before dinner, take ONE-HALF tab TWICE DAILY TIME two weeks then full tab TWICE DAILY SPIRIVA RESPIMAT 1.25 mcg/actuation inhaler inhale 2 (TWO) puffs BY MOUTH EVERY DAY montelukast (SINGULAIR) 10 mg tablet benzonatate (TESSALON PERLES) 100 mg capsule Take 2 capsules by mouth three times a day as needed. (Patient not taking: Reported on 05/17/2024) Phentermine HCl 37.5 mg tablet Take 37.5 mg by mouth daily before breakfast. diclofenac (VOLTAREN) 1 % topical gel Apply 2 g to affected area four times daily. albuterol HFA (PROVENTIL HFA, VENTOLIN HFA) 90 mcg/actuation inhaler Inhale 2 Puffs as instructed every 4 hours as needed for wheezing/shortness of breath. pantoprazole DR (PROTONIX) 40 mg tablet Take 1 tablet by mouth daily before breakfast. Take on empty stomach, 1/2 hr before meal. citalopram (CELEXA) 40 mg tablet Take 1 tablet by mouth once daily. albuterol HFA (VENTOLIN HFA) 90 mcg/actuation inhaler Inhale 2 Puffs as instructed every 4 hours asneeded. fluticasone (FLOVENT HFA) 110 mcg/actuation inhaler Inhale 1 Puff as instructed twice daily. EPINEPHrine (EPIPEN) 0.3 mg/0.3 mL (1:1,000) atIn Inject intramuscularly. use as directed for allergic reaction. Seek emergent medical care immediately after use. FAMILY HISTORY Problem Relation Age of Onset Arthritis Father Hypertension Father Lipids Father Arthritis Maternal Grandmother Diabetes Maternal Grandmother Diabetes Maternal Grandfather Heart Paternal Grandmother Psychiatry Paternal Grandfather Diabetes Paternal Grandfather Prostate Cancer Paternal Grandfather Heart Paternal Uncle other (ADD) Daughter other (ADHD) Son Social History Tobacco Use Smoking status: Former Current packs/day: 0.00 Types: Cigarettes Quit date: 12/17/2005 Years since quittin.4 Smokeless tobacco: Never Tobacco comments: quit one year ago Substance Use Topics Alcohol use: Yes Comment: Seldom, NOT DURING Drug use: No ASSESSMENT/PLAN: 1. Pain, dental - ICD9: 525.9, ICD10: K08.89 - AZITHROMYCIN 250 MG TABLET Patient cannot take clindamycin. Patient is allergic to amoxicillin with shortness of breath so cannot tolerate Keflex. Best option is azithromycin even with medication interaction. Patient was educated about proper use of medication and supportive therapies. Patient was educated to monitor for signs of worsening. Patient was agreeable to this care plan. Tessa Del Castillo APRN.[facility] documented in this encounterBet[facility]02-[facility]25 Evaluation note* Diagnosis Onset Date Resolution Status Admit Date Obesity acute April 28, 2024 2:22pm Prediabetes acute April 28, 2024 2:22pm SKYE (stress urinary incontinence, female) acute April 282024 2:22pm Anxiety and depression chronic Fe bruary 2024 2:22pm [facility] Work Phone: 1(457) 108-810301-17-2025 Telephone encounter Note* Telephone Encounter - Anika Rizzo APRN.CNP - 04/09/2024 10:28 AM EST Urine culture reveals bacterial growth The antibiotic selected is resistant. Attempted to call patient. No answer. Requested return call. Will place patient on [employer] message sent sent [facility]01-17-2025 Miscellaneous Notes* Telephone Encounter - Anika Rizzo APRN.CNP - 04/09/2024 10:28 AM EST Urine culture reveals bacterial growth The antibiotic selected is resistant. Attempted to call patient. No answer. Requested return call. Will place patient on [employer] message sent sent documented in this encounterBet[facility] Hospital01-14-2025 NoteHNO ID: [id number] Author: ENOCH GUAN APRN.[facility] Service: ? Author Type: Nurse Practitioner Type: Progress Notes Filed: 04/06/2024 19:59 Note Text: This note was created using [employer]. Subjective Jaclyn Mae is a 43 year old female. HPI by patient: Jaclyn is a 43 year old presenting to the office with the complaint of urinary frequency and urgency, pelvic pressure. Took a home AZO test and was positive Started approximately 4 days ago Denies any other concerns Covid Immunization Dates Overdue - Covid-19 Vaccine ( season) Never done No completion, postpone, frequency change, or communication history exists for this topic. ALLERGIES Clindomycin [Clinda* Shortness of Breath Penicillins Shortness of Breath Family History Reviewed Including Cardiac Diseases, Psychiatric Diseases, AND Substance Abuse Problem: Arthritis Relation: Father Age of Onset: (Not Specified) Problem: Hypertension Relation: Father Age of Onset: (Not Specified) Problem: Lipids Relation: Father Age of Onset: (Not Specified) Problem: Arthritis Relation: Maternal Grandmother Age of Onset: (Not Specified) Problem: Diabetes Relation: Maternal Grandmother Age of Onset: (Not Specified) Problem: Diabetes Relation: Maternal Grandfather Age of Onset: (Not Specified) Problem: Heart Relation: Paternal Grandmother Age of Onset: (Not Specified) Problem: Psychiatry Relation: Paternal Grandfather Age of Onset: (Not Specified) Problem: Diabetes Relation: Paternal Grandfather Age of Onset: (Not Specified) Problem: Prostate Cancer Relation: Paternal Grandfather Age of Onset: (Not Specified) Problem: Heart Relation: Paternal Uncle Age of Onset: (Not Specified) Problem: other (ADD) Relation: Daughter Age of Onset: (Not Specified) Problem: other (ADHD) Relation: Son Age of Onset: (Not Specified) Social History Tobacco Use Smoking status: Former Packs/day: 0.00 Types: Cigarettes Quit date: 12/17/2005 Years since quittin.3 Smokeless tobacco: Never Tobacco comments: quit one year ago Alcohol use: Yes Comment: Seldom, NOT DURING Drug use: No Review of Systems Constitutional: Negative for chills and fever. Gastrointestinal: Negative for abdominal pain, nausea and vomiting. Genitourinary: Positive for frequency, pelvic pain and urgency. Negative for dysuria, flank pain, hematuria and vaginal discharge. Allergic/Immunologic: Negative for immunocompromised state. Objective LMP 06/05/2021 Physical Exam Vitals and nursing note reviewed. Constitutional: Appearance: She is well-developed. Cardiovascular: Rate and Rhythm: Normal rate and regular rhythm. Heart sounds: Normal heart sounds. Pulmonary: Effort: Pulmonary effort is normal. Breath sounds: Normal breath sounds. Abdominal: General: Bowel sounds are normal. Palpations: Abdomen is soft. Tenderness: There is no abdominal tenderness. Skin: General: Skin is warm and dry. Neurological: Mental Status: She is alert and oriented to person, place, and time. Assessment and Plan ASSESSMENT/PLAN: 1. Urinary frequency - ICD9: 788.41, ICD10: R35.0 acute - Patient education for prevention given - UA DIP, URINE (POC) - BACTERIAL CULTURE, URINE - NITROFURANTOIN MONOHYDRATE AND MACROCRYSTAL 100 MG ORAL CAP Enoch Guan APRN.[employer] Medical Decision Making: Problems: Moderate: New problem with uncertain prognosis Data: Unique test(s) ordered: 2 Risk: Moderate: Drug management Medical Decision Making Level: 4 - [facility]01-14-[facility] History of Present illness Narrative* Enoch Guan APRN.CNP - 04/06/2024 7:53 PM EST This note was created using [employer]. Subjective Jaclyn Mae is a 43 year old female. HPI by patient: Jaclyn is a 43 year old presenting to the office with the complaint of urinary frequency and urgency, pelvic pressure. Took a home AZO test and was positive Started approximately 4 days ago Denies any other concerns Covid Immunization Dates Overdue - Covid-19 Vaccine ( season) Never done No completion, postpone, frequency change, or communication history exists for this topic. ALLERGIES Clindomycin [Clinda* Shortness of Breath Penicillins Shortness of Breath Family History Reviewed Including Cardiac Diseases, Psychiatric Diseases, & Substance Abuse Problem: Arthritis Relation: Father Age of Onset: (Not Specified) Problem: Hypertension Relation: Father Age of Onset: (Not Specified) Problem: Lipids Relation: Father Age of Onset: (Not Specified) Problem: Arthritis Relation: Maternal Grandmother Age of Onset: (Not Specified) Problem: Diabetes Relation: Maternal Grandmother Age of Onset: (Not Specified) Problem: Diabetes Relation: Maternal Grandfather Age of Onset: (Not Specified) Problem: Heart Relation: Paternal Grandmother Age of Onset: (Not Specified) Problem: Psychiatry Relation: Paternal Grandfather Age of Onset: (Not Specified) Problem: Diabetes Relation: Paternal Grandfather Age of Onset: (Not Specified) Problem: Prostate Cancer Relation: Paternal Grandfather Age of Onset: (Not Specified) Problem: Heart Relation: Paternal Uncle Age of Onset: (Not Specified) Problem: other (ADD) Relation: Daughter Age of Onset: (Not Specified) Problem: other (ADHD) Relation: Son Age of Onset: (Not Specified) Social History Tobacco Use Smoking status: Former Packs/day: 0.00 Types: Cigarettes Quit date: 12/17/2005 Years since quittin.3 Smokeless tobacco: Never Tobacco comments: quit one year ago Alcohol use: Yes Comment: Seldom, NOT DURING Drug use: No Review of Systems Constitutional: Negative for chills and fever. Gastrointestinal: Negative for abdominal pain, nausea and vomiting. Genitourinary: Positive for frequency, pelvic pain and urgency. Negative for dysuria, flank pain, hematuria and vaginal discharge. Allergic/Immunologic: Negative for immunocompromised state. Objective LMP 06/05/2021 Physical Exam Vitals and nursing note reviewed. Constitutional: Appearance: She is well-developed. Cardiovascular: Rate and Rhythm: Normal rate and regular rhythm. Heart sounds: Normal heart sounds. Pulmonary: Effort: Pulmonary effort is normal. Breath sounds: Normal breath sounds. Abdominal: General: Bowel sounds are normal. Palpations: Abdomen is soft. Tenderness: There is no abdominal tenderness. Skin: General: Skin is warm and dry. Neurological: Mental Status: She is alert and oriented to person, place, and time. Assessment and Plan ASSESSMENT/PLAN: 1. Urinary frequency - ICD9: 788.41, ICD10: R35.0 acute - Patient education for prevention given - UA DIP, URINE (POC) - BACTERIAL CULTURE, URINE - NITROFURANTOIN MONOHYDRATE & MACROCRYSTAL 100 MG ORAL CAP Enoch Guan APRN.CNP Medical Decision Making: Problems: Moderate: New problem with uncertain prognosis Data: Unique test(s) ordered: 2 Risk: Moderate: Drug management Medical Decision Making Level: 4 - Moderate documented in this encounterBet[facility]01-14-[facility]25 Instructions* Patient Instructions* Enoch Guan APRN.CNP - 04/06/2024 7:53 PM EST -Increase fluids. Focus on clears. -Decrease sugary drink intake. Minimize caffeine. -Wipe front to back. No tight clothing. No bubble baths. -Results will be released to [facility] unless there is a need for a change in medication. -If no improvement in 3-5 days please be re-seen. -Be seen immediately or go to the ER with worsening/warning symptoms. Warning symptoms include: chills, severe flank pain, severe abdominal/pelvic pain, fevers 101 or higher, chest pain, and respiratory distress. Certain foods and beverages might irritate your bladder, including: Coffee, tea and carbonated drinks, even without caffeine. Alcohol. Certain acidic fruits -- oranges, grapefruits, enrico and limes -- and fruit juices. Spicy foods. Tomato-based products. Carbonated drinks. Chocolate. documented in this encounterBethesda [facility] Hospital09-10-2024 NoteHNO ID: [id number] Author: JENI ANDINO APRN.SARKIS Service: ? Author Type: Nurse Practitioner Type: Progress Notes Filed: 12/02/2023 19:54 Note Text: This note was created using HEXIO. Subjective Jaclyn Mae is a 43 year old female. Patient presents bug bite on right earlobe for 4-5 weeks Area is red and draining clear bloody fluid Hx of MRSA skin infection Review of Systems Constitutional: Negative for chills and fever. Objective BP 110/68 Pulse 94 Temp 36.8 ?C (98.2 ?F) Resp 16 Wt 69.1 kg (152 lb 5.4 oz) LMP 06/05/2021 SpO2 97% BMI 24.59 kg/m? Physical Exam Constitutional: General: She is not in acute distress. Appearance: Normal appearance. She is not toxic-appearing. Skin: Neurological: Mental Status: She is alert. Assessment and Plan ASSESSMENT/PLAN: 1. Cellulitis of skin - ICD9: 682.9, ICD10: L03.90 - Begin treatment with doxycycline - No lymphangetic streaking, this was defined for patient to watch for and to seek medical care immediately if appears - Follow up for recheck in prn - DOXYCYCLINE MONOHYDRATE 100 MG TABLET Jeni Andino APRN.[facility]NPAd[facility] History of Present illness Narrative* Jeni Andino APRN.CNP - 12/02/2023 7:52 PM EDT This note was created using HEXIO. Subjective Jaclyn Mae is a 43 year old female. Patient presents bug bite on right earlobe for 4-5 weeks Area is red and draining clear bloody fluid Hx of MRSA skin infection Review of Systems Constitutional: Negative for chills and fever. Objective BP 110/68 Pulse 94 Temp 36.8 C (98.2 F) Resp 16 Wt 69.1 kg (152 lb 5.4 oz) LMP 06/05/2021 SpO2 97% BMI 24.59 kg/m Physical Exam Constitutional: General: She is not in acute distress. Appearance: Normal appearance. She is not toxic-appearing. Skin: Neurological: Mental Status: She is alert. Assessment and Plan ASSESSMENT/PLAN: 1. Cellulitis of skin - ICD9: 682.9, ICD10: L03.90 - Begin treatment with doxycycline - No lymphangetic streaking, this was defined for patient to watch for and to seek medical care immediately if appears - Follow up for recheck in prn - DOXYCYCLINE MONOHYDRATE 100 MG TABLET Jeni Andino APRN.CNP documented in this encounterBethesda [facility] Hospital09-10-2024 Instructions* Patient Instructions* Jeni Andino APRN.CNP - 12/02/2023 7:49 PM EDT [facility] PATIENT INFO SKIN INFECTION OVERVIEW Cellulitis is an infection of the skin and soft tissue of the skin. The infection is usually causedby bacteria that normally live on the skin, such as staphylococci (Staph) or streptococci (Strep). The infection develops when there is a break in the skin, such as a wound or injury, which may be minor. This allows bacteria to enter the skin and grow, causing infection and swelling. Most cases of cellulitis are mild and heal completely with antibiotic treatment. However, the infection can become severe and cause a bodywide infection if left untreated. It is important to seek medical care promptly if you could have a skin infection. SKIN INFECTION RISK FACTORS Certain conditions increase the risk of developing cellulitis. These include: Recent injury to the skin (a wound, abrasion, cut, recent shaving, or injection drug use) Swelling of the skin due to radiation therapy Current skin infection, such as athlete's foot or impetigo Accumulation of fluid (edema) due to poor circulation, heart failure, liver disease, or past surgery to remove lymph nodes Being overweight Chronic skin conditions, such as eczema or psoriasis However, cellulitis can also develop in people who have no known risk factors. SKIN INFECTION SYMPTOMS Cellulitis -- The most common symptom of cellulitis is pain or tenderness. Other cellulitis symptoms can include swelling, warmth, and redness in a distinct area of skin. These symptoms usually worsen and the redness may expand over the course of a few days. The skin is usually smooth and shiny rather than raised or bumpy. Fever and chills are not common. The most common areas of the body for cellulitis to develop include the legs and the arms; it can also develop around the eye, on the abdominal wall, in the mouth, and around the anus. Other skin infections -- Other types of skin infections include abscesses, furuncles (boils), andcarbuncles. These usually cause a collection of pus under the skin. Skin that is raised, reddened, tender, and pus-filled may be caused by a skin infection known as methicillin-resistant Staphylococcus aureus (MRSA). DO I NEED TO BE EXAMINED? There are many types and causes of skin infections, and it is important to know the most likely cause of the infection before beginning treatment. Using the wrong treatment could allow the infection to worsen. To ensure that the correct treatment is used, it is important to be evaluated by a healthcare provider. SKIN INFECTION TREATMENT Cellulitis treatment includes antibiotics as well as treatment of any underlying condition that ledto the skin infection. Elevate the area -- Elevating the arm or leg above the level of the heart can help to reduce swelling and speed healing. Keep the area clean and dry -- It is important to keep the infected area clean and dry. You can shower or bathe normally, and pat the area dry with a clean towel. You can use a bandage or gauze to protect the skin, if needed. Do not use any antibiotic ointments or creams. Antibiotics -- Most people with cellulitis are treated with an antibiotic that is taken by mouth for one to two weeks. The best antibiotic depends upon your situation. If the infection is severe, you may need to be hospitalized and treated with antibiotics given intoa vein (IV). It is important to take the antibiotic exactly as recommended and to finish the entire course of treatment. Skipping doses or ending treatment early could potentially allow the bacteria to become resistant and require longer treatment. Time to heal -- The swelling, warmth, and redness should begin to improve within one to three days after starting antibiotics, although these symptoms can persist for two weeks. If the reddened area becomes larger, more swollen, or more tender, call your healthcare provider. He or she may want to reexamine you to determine if further testing or an alternate antibiotic are needed. SKIN INFECTION PROGNOSIS In most cases, you will recover completely from an episode of cellulitis without any complications.If you have skin infection risk factors talk to your healthcare provider to determine if there are steps you can take to minimize the risk of infections in the future. documented in this encounterBet[facility]da [facility]04-15-2024 NoteHNO ID: [id number] Author: ANGELA MATUTE PA-C Service: ? Author Type: Physician Pulmonary Care Nurse Type: Progress Notes Filed: 07/07/2023 18:50 Note Text: This note was created using CompareNetwork[employer]. Subjective Jaclyn Mae is a 42 year old female. HPI Patient presents with cough and chest congestion for 2 days. Her daughter has been sick with cold symptoms for 3 days. She denies a fever. She feels like she has had to use her albuterol inhaler more frequently. She also takes Spiriva and is on Singulair for asthma. Denies being a smoker. She denies chest pain. She states her ears have been itchy. Denies sore throat or runny nose. No chest pain. Review of Systems Constitutional: Negative. HENT: Negative for congestion, ear pain, rhinorrhea and sore throat. Respiratory: Positive for cough and wheezing. Negative for shortness of breath. Cardiovascular: Negative. Gastrointestinal: Negative. Genitourinary: Negative. Musculoskeletal: Negative. All other systems reviewed and are negative. PAST MEDICAL HISTORY Diagnosis Date Abdominal pain, epigastric Acute gastritis without mention of hemorrhage Anemia Anxiety disorder in conditions classified elsewhere Chronic cholecystitis FRACTURE AGE 10 WRIST,FALL ON ICE GERD (gastroesophageal reflux disease) Helicobacter pylori (H. pylori) Insertion of IUD 05/17/2009 Paragard Fell out 01/31/11 Nonspecific elevation of levels of transaminase or lactic acid dehydrogenase (LDH) hemorrhage WITH LAST Varicosities Current Outpatient Medications Medication Sig Dispense Refill montelukast (SINGULAIR) 10 mg tablet Phentermine HCl 37.5 mg tablet Take 37.5 mg by mouth daily before breakfast. albuterol HFA (PROVENTIL HFA, VENTOLIN HFA) 90 mcg/actuation inhaler Inhale 2 Puffs as instructed every 4 hours as needed for wheezing/shortness of breath. [address] (PROTONIX) 40 mg tablet Take 1 tablet by mouth daily before breakfast. Take on empty stomach, 1/2 hr before meal. 30 tablet 11 citalopram (CELEXA) 40 mg tablet Take 1 tablet by mouth once daily. 90 tablet 3 albuterol HFA (VENTOLIN HFA) 90 mcg/actuation inhaler Inhale 2 Puffs as instructed every 4 hours as needed. 1 Inhaler 0 fluticasone (FLOVENT HFA) 110 mcg/actuation inhaler Inhale 1 Puff as instructed twice daily. 1 Inhaler 5 EPINEPHrine (EPIPEN) 0.3 mg/0.3 mL (1:1,000) atIn Inject intramuscularly. use as directed for allergic reaction. Seek emergent medical care immediately after use. 1 Each 3 topiramate (TOPAMAX) 50 mg tablet take 50 mg orally twice a day; take before breakfast and before dinner, take ONE-HALF tab TWICE DAILY TIME two weeks then full tab TWICE DAILY SPIRIVA RESPIMAT 1.25 mcg/actuation inhaler inhale 2 (TWO) puffs BY MOUTH EVERY DAY predniSONE (DELTASONE) 20 mg tablet Take 2 tablets by mouth once daily for 5 days. 10 tablet 0 benzonatate (TESSALON PERLES) 100 mg capsule Take 2 capsules by mouth three times a day as needed. 30 capsule 0 diclofenac (VOLTAREN) 1 % topical gel Apply 2 g to affected area four times daily. (Patient not taking: Reported on 12/17/2022) 100 g 0 No current facility-administered medications for this visit. 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 [place] DILATION AND CURETTAGE DXAND/THER NONOBSTETRIC 2005 Dilation AND curettage, EGD TRANSORAL BIOPSY SINGLE/MULTIPLE 05/22/07 INSERT INTRAUTERINE DEVICE 11/2006 Mirena, Removed 05/17/2009 IUD INSERTION (FORMING MACHINE ADJUSTER DEPT)_*FL 05/17/2009 Paragard LAPS SURG CHOLECYSTECTOMY W/CHOLANGIOGRAPHY 04/08/08 FAMILY HISTORY Problem Relation Age of Onset Arthritis Father Hypertension Father Lipids Father Arthritis Maternal Grandmother Diabetes Maternal Grandmother Diabetes Maternal Grandfather Heart Paternal Grandmother Psychiatry Paternal Grandfather Diabetes Paternal Grandfather Prostate Cancer Paternal Grandfather Heart Paternal Uncle other (ADD) Daughter other (ADHD) Son Social History Tobacco Use Smoking status: Former Types: Cigarettes Quit date: 12/17/2005 Years since quittin.5 Smokeless tobacco: Never Tobacco comments: quit one year ago Substance Use Topics Alcohol use: Yes Comment: Seldom, NOT DURING Drug use: No Objective BP 122/80 Pulse 112 Temp 37 ?C (98.6 ?F) Resp 18 Wt 73.5 kg (162 lb 0.6 oz) LMP 06/05/2021 SpO2 99% BMI 26.15 kg/m? Physical Exam Vitals reviewed. Constitutional: Appearance: Normal appearance. HENT: Head: Normocephalic and atraumatic. Nose: Nose normal. Mouth/Throat: Mouth: Mucous membranes are moist. Pharynx: Oropharynx is clear. Cardiovascular: Rate and Rhythm: Normal rate and regular rhythm. Heart sounds: Normal heart sounds. Pulmonary: Effort: Pulmonary effort is normal. Breath sounds: Normal breath sounds. No wheezing, rhonchi or rales. Musculoskeletal: Cer (more content not included)...[facility]04-[facility] History of Present illness Narrative* Angela Matute PA-C - 07/07/2023 6:48 PM EDT This note was created using CompareNetwork[employer]. Subjective Jaclyn Mae is a 42 year old female. HPI Patient presents with cough and chest congestion for 2 days. Her daughter has been sick with cold symptoms for 3 days. She denies a fever. She feels like she has had to use her albuterol inhaler morefrequently. She also takes Spiriva and is on Singulair for asthma. Denies being a smoker. She denies chest pain. She states her ears have been itchy. Denies sore throat or runny nose. No chest pain. Review of Systems Constitutional: Negative. HENT: Negative for congestion, ear pain, rhinorrhea and sore throat. Respiratory: Positive for cough and wheezing. Negative for shortness of breath. Cardiovascular: Negative. Gastrointestinal: Negative. Genitourinary: Negative. Musculoskeletal: Negative. All other systems reviewed and are negative. PAST MEDICAL HISTORY Diagnosis Date Abdominal pain, epigastric Acute gastritis without mention of hemorrhage Anemia Anxiety disorder in conditions classified elsewhere Chronic cholecystitis FRACTURE AGE 10 WRIST,FALL ON ICE GERD (gastroesophageal reflux disease) Helicobacter pylori (H. pylori) Insertion of IUD 05/17/2009 Paragard Fell out 01/31/11 Nonspecific elevation of levels of transaminase or lactic acid dehydrogenase (LDH) hemorrhage WITH LAST Varicosities Current Outpatient Medications Medication Sig Dispense Refill montelukast (SINGULAIR) 10 mg tablet Phentermine HCl 37.5 mg tablet Take 37.5 mg by mouth daily before breakfast. albuterol HFA (PROVENTIL HFA, VENTOLIN HFA) 90 mcg/actuation inhaler Inhale 2 Puffs as instructed every 4 hours as needed for wheezing/shortness of breath. [address] (PROTONIX) 40 mg tablet Take 1 tablet by mouth daily before breakfast. Take on empty stomach, 1/2 hr before meal. 30 tablet 11 citalopram (CELEXA) 40 mg tablet Take 1 tablet by mouth once daily. 90 tablet 3 albuterol HFA (VENTOLIN HFA) 90 mcg/actuation inhaler Inhale 2 Puffs as instructed every 4 hours asneeded. 1 Inhaler 0 fluticasone (FLOVENT HFA) 110 mcg/actuation inhaler Inhale 1 Puff as instructed twice daily. 1 Inhaler 5 EPINEPHrine (EPIPEN) 0.3 mg/0.3 mL (1:1,000) atIn Inject intramuscularly. use as directed for allergic reaction. Seek emergent medical care immediately after use. 1 Each 3 topiramate (TOPAMAX) 50 mg tablet take 50 mg orally twice a day; take before breakfast and before dinner, take ONE-HALF tab TWICE DAILY TIME two weeks then full tab TWICE DAILY SPIRIVA RESPIMAT 1.25 mcg/actuation inhaler inhale 2 (TWO) puffs BY MOUTH EVERY DAY predniSONE (DELTASONE) 20 mg tablet Take 2 tablets by mouth once daily for 5 days. 10 tablet 0 benzonatate (TESSALON PERLES) 100 mg capsule Take 2 capsules by mouth three times a day as needed. 30 capsule 0 diclofenac (VOLTAREN) 1 % topical gel Apply 2 g to affected area four times daily. (Patient not taking: Reported on 12/17/2022) 100 g 0 No current facility-administered medications for this visit. 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 [place] DILATION & CURETTAGE DX&/THER NONOBSTETRIC 2005 Dilation & curettage, EGD TRANSORAL BIOPSY SINGLE/MULTIPLE 05/22/07 INSERT INTRAUTERINE DEVICE 11/2006 Mirena, Removed 05/17/2009 IUD INSERTION (FORMING MACHINE ADJUSTER DEPT)_*FL 05/17/2009 Paragard LAPS SURG CHOLECYSTECTOMY W/CHOLANGIOGRAPHY 04/08/08 FAMILY HISTORY Problem Relation Age of Onset Arthritis Father Hypertension Father Lipids Father Arthritis Maternal Grandmother Diabetes Maternal Grandmother Diabetes Maternal Grandfather Heart Paternal Grandmother Psychiatry Paternal Grandfather Diabetes Paternal Grandfather Prostate Cancer Paternal Grandfather Heart Paternal Uncle other (ADD) Daughter other (ADHD) Son Social History Tobacco Use Smoking status: Former Types: Cigarettes Quit date: 12/17/2005 Years since quittin.5 Smokeless tobacco: Never Tobacco comments: quit one year ago Substance Use Topics Alcohol use: Yes Comment: Seldom, NOT DURING Drug use: No Objective BP 122/80 Pulse 112 Temp 37 C (98.6 F) Resp 18 Wt 73.5 kg (162 lb 0.6 oz) LMP 06/05/2021 SpO2 99% BMI 26.15 kg/m Physical Exam Vitals reviewed. Constitutional: Appearance: Normal appearance. HENT: Head: Normocephalic and atraumatic. Nose: Nose normal. Mouth/Throat: Mouth: Mucous membranes are moist. Pharynx: Oropharynx is clear. Cardiovascular: Rate and Rhythm: Normal rate and regular rhythm. Heart sounds: Normal heart sounds. Pulmonary: Effort: Pulmonary effort is normal. Breath sounds: Normal breath sounds. No wheezing, rhonchi or rales. Musculoskeletal: Cervical back: Neck supple. Skin: General: Skin is warm and dry. Neurological: General: No focal deficit present. Mental Status: She is alert. Assessment and Plan ASSESSMENT/PLAN: 1. URI, acute - ICD9: 465.9, ICD10: J06.9 - Discussed viral etiology and rationale for treatment. - Symptomatic treatment with prn analgesia - Supportive care with fluids and rest -Viral illness likely flaring up her asthma. Will treat with prednisone and Tessalon. Continue inhalers. Discussed if she develops fever or worsening symptoms to be seen again. Patient agreeable withplan. Angela Matute PA-C documented in this encounterBet[facility]03-06-2024 Miscellaneous Notes* Telephone Encounter - Anika Rizzo APRN.CNP - 05/28/2023 12:52 PM EST Fungal screen has returned POSITIVE (Day one was negative and patient had been notified) Attempted to call No answer. Message left. Mychart message sent. documented in this encounterBethesda North Hospital03-04-2024 Miscellaneous Notes* Telephone Encounter - Starla Tay LPN - 05/26/2023 7:44 PM EST Patient notified.Starla Tay LPN * Telephone Encounter - Daxa Sexton - 05/26/2023 8:54 AM EST Left message for patient to return call. Daxa Sexton * Telephone Encounter - Daxa Sexton - 05/26/2023 8:53 AM EST ----- Message from Awdoa Martines APRN.CNP sent at 05/26/2023 7:11 AM EST ----- Please advise patient the fungal screen is negative so far. This test will continue to process and if the result changes, she will be notified. If the mouthwash has been helpful, she can continue to use it. Adwoa Martines APRN.CNP documented in this encounterBethesda North Hospital03-02-2024 History of Present illness Narrative* Anika Rizzo APRN.CNP - 05/24/2023 3:12 PM EST This note was created using NoteWriter. Subjective Jaclyn Mae is a 42 year old female. 42 year old female with PMH GERD and asthma with usage of inhalers presents for mouth complaints. Acute onset of symptoms was 2 days ago +white patches +feels dry States she has recently used her inhaler This occurs when I do that Denies fever or chills Denies URI sx Denies dental pain Denies difficulty handling secretions Denies tobacco usage The history is provided by the patient. No sign language teacher was used. Mouth/Lip Problem This is a new problem. Episode onset: 2 days ago. The problem occurs constantly. The problem has been gradually worsening. Pertinent negatives include no abdominal pain, anorexia, arthralgias, changein bowel habit, chest pain, chills, congestion, coughing, diaphoresis, fatigue, fever, headaches, joint swelling, myalgias, nausea, neck pain, numbness, rash, sore throat, swollen glands, urinary symptoms, vertigo, visual change, vomiting or weakness. Nothing aggravates the symptoms. She has tried nothing for the symptoms. The treatment provided no relief. PAST MEDICAL HISTORY Diagnosis Date Abdominal pain, epigastric Acute gastritis without mention of hemorrhage Anemia Anxiety disorder in conditions classified elsewhere Chronic cholecystitis FRACTURE AGE 10 WRIST,FALL ON ICE GERD (gastroesophageal reflux disease) Helicobacter pylori (H. 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 1tsp swish in mouth for several minutes, then swallow (or expectorate) 4 times daily until gone. Phentermine HCl 37.5 mg tablet Take 37.5 mg by mouth daily before breakfast. diclofenac (VOLTAREN) 1 % topical gel Apply 2 g to affected area four times daily. (Patient not taking: Reported on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 for joint pain. Negative for back pain and falls. See HPI BP 128/84 Pulse 100 Temp 37 C (98.6 F) Resp 21 Wt 77.2 kg (170 lb 3.2 oz) LMP 06/05/2021 SpO2 99% BMI 27.47 kg/m PAST MEDICAL HISTORY Diagnosis Date Abdominal pain, epigastric Acute gastritis without mention of hemorrhage Anemia Anxiety disorder in conditions classified elsewhere Chronic cholecystitis FRACTURE AGE 10 WRIST,FALL ON ICE GERD (gastroesophageal reflux disease) Helicobacter pylori (H. 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 pantoprazole DR (PROTONIX) 40 mg tablet Take 1 tablet by mouth daily before breakfast. Take on empty stomach, 1/2 hr before meal. citalopram (CELEXA) 40 mg tablet Take 1 tablet by mouth once daily. albuterol HFA (VENTOLIN HFA) 90 mcg/actuation inhaler Inhale 2 Puffs as instructed every 4 hours asneeded. fluticasone (FLOVENT HFA) 110 mcg/actuation inhaler Inhale 1 Puff as instructed twice daily. EPINEPHrine (EPIPEN) 0.3 mg/0.3 mL (1:1,000) atIn Inject intramuscularly. use as directed for allergic reaction. Seek emergent medical care immediately after use. benzonatate (TESSALON PERLE) 100 mg capsule Take 1-2 capsules tid prn, no more than 6 in 24 hours. (Patient not taking: Reported on 11/28/2021) guaiFENesin (MUCINEX) 600 mg 12 hr tablet Take 2 tablets by mouth twice daily. (Patient not taking:Reported on 02/28/2022) Drospirenone-Ethinyl Estradiol 3-0.03 mg per tablet Take 1 tablet by mouth once daily. (Patient nottaking: No sig reported) HYDROcodone-acetaminophen (NORCO) 5-325 mg per tablet HYDROcodone-Acetaminophen (HYCET) 7.5-325 mg/15 mL oral liquid ketotifen fumarate (ZADITOR) 0.025 % (0.035 %) ophthalmic solution (Patient not taking: Reported on07/12/2021) dicyclomine (BENTYL) 10 mg capsule Take 1 capsule by mouth before meals and at bedtime. (Patient not taking: Reported on 02/10/2018 ) LORazepam (ATIVAN) 0.5 mg tab Take 1 tablet by mouth three times daily as needed (anxiety). (Patient not taking: Reported on 06/28/2021) FAMILY HISTORY Problem Relation Age of Onset Arthritis Father Hypertension Father Lipids Father Arthritis Maternal Grandmother Diabetes Maternal Grandmother Diabetes Maternal Grandfather Heart Paternal Grandmother Psychiatry Paternal Grandfather Diabetes Paternal Grandfather Prostate Cancer Paternal Grandfather Heart Paternal Uncle other (ADD) Daughter other (ADHD) Son Social History Tobacco Use Smoking status: Former Types: Cigarettes Quit date: 12/17/2005 Years since quittin.9 Smokeless tobacco: Never Tobacco comments: quit one year ago Substance Use Topics Alcohol use: Yes Comment: Seldom, NOT DURING Drug use: No Objective Physical Exam Vitals and nursing note reviewed. Constitutional: Appearance: Normal appearance. Cardiovascular: Rate and Rhythm: Regular rhythm. Pulmonary: Effort: Pulmonary effort is normal. Breath sounds: Normal breath sounds. Abdominal: Tenderness: There is no abdominal tenderness. There is no right CVA tenderness or left CVA tenderness. Musculoskeletal: General: Swelling, tenderness and signs of injury present. Hands: Skin: General: Skin is warm and dry. Neurological: Mental Status: She is alert. ASSESSMENT/PLAN: 1. Pain with urination - ICD9: 788.1, ICD10: R30.9 (primary diagnosis) acute - UA positive for proteinuria and ketones - Send urine for culture - Patient education for prevention given - UA DIP, URINE (POC) - URINE CULTURE 2. Injury of right middle finger, initial encounter - ICD9: 959.5, ICD10: S69.91XA - XR DIGIT GENERAL 3V FRONTAL/LAT/OBL RIGHT Radiologist FINDINGS: No acute fractures or subluxations are noted. The joint spaces are well preserved. The mineralization of the bones is normal. There appears to be soft tissue swelling. IMPRESSION: Soft tissue swelling in the third digit. No acute fracture seen. Manager [employer] Director: JORGE Transcribe Date/Time: Nov 18 2022 3:09P Dictated by : CHRISTOPHER KATHLEEN MD - CONSULT PANEL TO ORTHOPAEDICS - 3rd middle finger placed in padded aluminum splint in position of comfort. Patient advised to follow up with orthopedics. - Follow-up with your PCP in 3-5 days if symptoms have not improved or sooner if symptoms worsen - Discussed red flags and need for immediate medical evaluation if any occur. - Discussed supportive care treatment with fluids, rest and analgesia. - Discussed expected course of illness Adwoa Martines APRN.MILK TRUCK DRIVER documented in this encounterBet[facility] Discharge summary Author Jamaal De La Rosa [facility] October 07, 2022 11:38pm Note Date/Time October 07, 2022 11:3 8pm [facility] Medical Records Department [address] [place] [id number] Emergency Department Summary 10/07/22 MR#: [id number] Acct: [id number] Name: JACLYN MAE Rep #:[id number] : 1980 41 From: Jamaal De La Rosa MD PCP: Dr. Michael Aguirre, DO Status:PRE ER Location: ED HPI HPI - URI History of Present Illness Chief Complaint: Cough Detail of Chief Complaint: Nonproductive cough, and rhinorrhea and hoarse voice Informant: patient Onset/Context/Timing Onset: Yesterday Context: Sudden Onset Timing: Continuous Quality: Upper respiratory tract infectious symptoms Location: Upper respiratory Current Severity: Mild Maximum Severity: Moderate Worsened by: Not Worsened By Swallowing, Eating Solids or Drinking Liquids Relieved by: Not Relieved By Tylenol or NSAIDs Associated Symptoms Associated Symptoms: Positive for Nasal Congestion, Myalgias, Shortness of Breath and Nonproductive cough; Negative for Headache, Sinus Pressure, Nausea, Vomiting, Diarrhea, Chest Pain or Hemoptysis Narrative Narrative: Patient is a 41-year-old woman who has history of asthma and sees Dr. Nix for her asthma. She is a non-smoker. She states she does not have an air conditioner in her home. She states her symptoms started last evening. She denies fever. She denies sweats. She does endorse rhinorrhea, congestion. Shestates her throat is sore after she coughs otherwise she does not have a sore throat. Her cough is nonproductive. She denies GI symptoms. She does report myalgias arthralgias. She denies rash. She has not been outside. She states she has problems when the air quality is poor, which it has been recently. Prior similar symptoms: Yes Recent Illness/Hospitalization: No ROS ROS ED Constitutional Constitutional ED: Denies chills, fever(s), subjective, sweats or weight loss Eyes Eyes: Denies blurry vision, change in vision or diplopia ENT ENT ED: Denies ear pain, rhinorrhea or sore throat Cardiovascular Cardiovascular: Denies chest pain, orthopnea, palpitations, paroxysmal nocturnaldyspnea or racing heartbeat Respiratory/Chest Respiratory/Chest: Reports cough and dyspnea; Denies dyspnea on exertion, orthopnea or paroxysmal nocturnal dyspnea Gastrointestinal Gastrointestinal: Denies abdominal pain, nausea or vomiting Genitourinary Genitourinary ED: Denies dysuria, hematuria or urinary frequency Musculoskeletal Musculoskeletal: Reports arthralgias and myalgias; Denies back pain or neck pain Integumentary Denies rash Neurologic Neurologic: Denies headache(s), paresthesias or weakness Psychiatric Psychiatric: Denies anxiety or depression Endocrine Endocrinology: Denies cold intolerance or heat intolerance Hematologic/Lymphatic Hematologic/Lymphatic: Denies easy bleeding or easy bruising Allergic/Immunologic Allergic/Immunologic ED: Denies mouth swelling, tongue swelling or urticaria [facility] Medical History Abnormal results of thyroid function studies Anemia Anxiety Anxiety and depression Asthma Bladder disease Former smoker Gastric reflux GERD (gastroesophageal reflux disease) History of echocardiogram History of hiatal hernia History of IBS History of stress test MRSA infection depression Prediabetes Thyroid disease Thyroid nodule Wears contact lenses Home Medications citalopram 40 mg tablet 40 mg PO DAILY depression #90 tabs 08/15/21 [Rx Last Taken Unknown] levothyroxine 75 mcg tablet 75 mcg PO DAILY #90 tabs 08/21/22 [Rx Last Taken Unknown] pantoprazole 40 mg tablet,delayed release 40 mg PO DAILY 08/26/22 [History Last Taken Unknown] albuterol sulfate 90 mcg/actuation aerosol inhaler 2 puff inhalation Q4H PRN shortness of breath or wheezing #1 ea 09/30/22 [Rx Last Taken Unknown] budesonide-formoterol HFA 160 mcg-4.5 mcg/actuation aerosol inhaler (Symbicort) 2 puff inhalation BID #10.2 grams 09/30/22 [Rx Last Taken Unknown] cetirizine 10 mg capsule 10 mg PO HS #90 caps 09/30/22 [Rx Last Taken Unknown] fluticasone propionate 50 mcg/actuation nasal spray,suspension 2 spray intranasal DAILY #16 grams 09/30/22 [Rx Last Taken Unknown] tiotropium bromide 1.25 mcg/actuation mist for inhalation (Spiriva Respimat) 2 puff inhalation DAILY #4 grams 09/30/22 [Rx Last Taken Unknown] Allergy/AdvReac Type Severity Reaction Status Date / Time ampicillin Allergy Itching Verified 10/07/22 23:11 Fish Containing Products Allergy Shortness Verified 10/07/22 23:11 of breath Penicillins [PCN] Allergy Shortness Verified 10/07/22 23:11 of breath clindamycin AdvReac Pain in Verified 10/07/22 23:11 joints Family History Mother ADALBERTO III (cervical intraepithelial neoplasia grade III) with severe dysplasia Diabetes Thyroid disorder Grandmother Diabetes Thyroid disorder Other CVA (cerebral vascular accident) Kidney disease Surgical History History of tubal ligation Hx of appendectomy Hx of cholecystectomy Social History adopted: No household members: family housing: house number of children: 5 current occupational status: employed current occupation: [employer] pets and animals: No history of recent travel: No Smoking Status: Former smoker second hand exposure: No alcohol intake: never substance use type: does not use caffeine: No what type of physical activity do you participate in: walking, bicycling and weight training frequency: 3-4 times per week seatbelt use: always do you feel safe at home: Yes additional social history: Boyfriend- Chaz EXAM Physical Exam Const Vital Signs: 10/07/22 23:13 10/07/22 23:17 Temperature 97.8 F Temperature Source Temporal Pulse Rate 95 Respiratory Rate 18 Respiratory Effort Normal Respiratory Depth Normal Respiratory Pattern Normal Blood Pressure 117/75 Blood Pressure Mean 89 Pulse Ox 98 Oxygen Delivery Method Room Air Room Air Positive well nourished General Appearance ED: NAD; Negative for cyanotic, diaphoretic or pallor HEENT Denies moist mucous membranes normocephalic Face and Sinus: Negative for sinus tenderness Throat: posterior oropharynx normal; Negative for tonsils abnormal Eyes PERRL and EOMs intact bilaterally General Eye ED: Negative for pale conjunctiva or scleral icterus Neck no lymphadenopathy, supple, no meningeal signs and no JVD Resp normal respiratory effort and clear to auscultation bilaterally Cardio S1 normal heart sound, S2 normal heart sound and no murmurs Back/Spine no CVA tenderness Extremity normal to inspection and full ROM General Extremety ED: Negative for cyanosis General Extremity: Negative for cyanosis Neuro oriented x3, CN's II-XII intact bilaterally and no sensory deficits noted Sensorium / Orientation: alert Psych mental status grossly normal Skin General Skin Exam: Negative for jaundice or pallor Lesions: no lesions Rashes: no rashes MDM MDM MDM Narrative Medical decision making narrative: Patient with upper respiratory symptoms. Patient vitals are normal. Pulse ox is 98%. Since symptoms started yesterday and there is no wheezing treatment is symptomatic. She was told she may be sick for another 7 to 10 days. She also was instructed to contact Dr. Nix's office and discuss possibility of writing a prescription for a air conditioner unit for her bedroom. Discharge Plan Triage Chief Complaint: Cough ED Provider: Jamaal De La Rosa Dx/Rx/DC Orders Clinical Impression: Upper respiratory infection with cough and congestion, History of asthma Instructions: ED URI, Viral, No Abx (Adult) Prescriptions: No Action citalopram 40 mg tablet 40 mg PO DAILY Qty: 90 3RF albuterol sulfate 90 mcg/actuation HFA aerosol inhaler 2 puff INHALATION Q4H PRN (Reason: shortness of breath or wheezing) Qty: 1 3RF Rx Instructions: administer with spacer budesonide-formoterol [Symbicort] 160-4.5 mcg/actuation HFA aerosol inhaler 2 puff inhalation BID Qty: 10.2 6RF cetirizine 10 mg capsule 10 mg PO HS Qty: 90 3RF fluticasone propionate 50 mcg/actuation spray,suspension 2 spray intranasal DAILY Qty: 16 3RF Spiriva Respimat 1.25 mcg/actuation mist 2 puff inhalation DAILY Qty: 4 6RF pantoprazole 40 mg Tablet,Delayed Release (Dr/Ec) 40 mg PO DAILY levothyroxine 75 mcg tablet 75 mcg PO DAILY Qty: 90 1RF Hold Instructions: Order Changed Primary Care Provider: Michael Aguirre Referrals: Michael Aguirre DO [Primary Care Provider] - 1 Week if not improving Activity Restrictions/Additional Instructions: Contact Dr. Nix's office regarding possibility of him writing a prescription for air conditioner unit since you have history of asthma and air quality has been poor with high humidity. Disposition Disposition: Home, Self Care What to do if you have Problems For any increased pain, shortness of breath, bleeding, nausea or vomiting, chestpain, or any unexpected problems, contact your Primary Care Provider. Call [facility] ([phone]) or report to the closest Emergency Room. Call 911 if necessary. 10/07/22 [id number] <Electronically signed by Jamaal De La Rosa MD> Cosigner Signature (if applicable): CC: Dr. Michael Aguirre DO ~ Signed [facility] Work Phone: 1(444) 331-302006-08-2023 Procedure [facility] 03-02-2022 Miscellaneous Notes* Telephone Encounter - Adwoa Martines APRN.CNP - 03/02/2022 1:40 PM EST Patient identified by name and date of . States she has continued symptoms of urgency, frequency. Reviewed urine culture results and advised we do not typically treat for <10,000 count of mixed microbiotia. Pt requests Macrobid because her body can tolerate it. Her PCP is supposed to refer her to urology. Adwoa Martines APRN.CNP documented in this encounterBet[facility]12-08-2022 Instructions* Patient Instructions* Adwoa Martines APRN.MILK TRUCK DRIVER - 02/28/2022 6:06 PM EST ASSESSMENT/PLAN: 1. Urinary frequency - ICD9: 788.41, ICD10: R35.0 (primary diagnosis) acute - UA normal in office today - Send urine for culture - Patient education for prevention given - UA DIP, URINE (POC) - URINE CULTURE 2. Wheezing - ICD9: 786.07, ICD10: R06.2 - ALBUTEROL SULFATE HFA 90 MCG/ACTUATION AEROSOL INHALER - INHALATIONAL SPACING DEVICE - PREDNISONE 10 MG TABLET - Follow-up with your PCP in 3-5 days if symptoms have not improved or sooner if symptoms worsen - Discussed red flags and need for immediate medical evaluation if any occur. - Discussed supportive care treatment with fluids, rest and analgesia. - Discussed expected course of illness Adwoa Martines APRN.CNP documented in this encounterBet[facility]12-08-2022 History of Present illness Narrative* Adwoa Martines APRN.CNP - 02/28/2022 6:03 PM EST Subjective HPI Jaclyn Mae is a 41 year old female who presents with chest congestion, cough for the past6 weeks (on and off). Had a chest xray in ER for cough and was told she did not have pneumonia. Shehas a history of asthma but is out of her inhaler, has been using nebulizer. She also has some strong odor to her urine and itching when she urinates. She was treated for a UTI2 weeks ago at the [facility] with macrobid. Symptoms have persisted. She has not had a fever or abdominal pain. Review of Systems Constitutional: Negative for chills and fever. HENT: Positive for congestion. Respiratory: Positive for cough, sputum production, shortness of breath and wheezing. Cardiovascular: Negative. Genitourinary: Negative for dysuria, frequency and urgency. See HPI BP 124/84 Pulse 114 Temp 36.5 C (97.7 F) Resp 20 Wt 97.2 kg (214 lb 3.2 oz) LMP 06/05/2021 SpO2 98% BMI 34.57 kg/m PAST MEDICAL HISTORY Diagnosis Date Abdominal pain, epigastric Acute gastritis without mention of hemorrhage Anemia Anxiety disorder in conditions classified elsewhere Chronic cholecystitis FRACTURE AGE 10 WRIST,FALL ON ICE GERD (gastroesophageal reflux disease) Helicobacter pylori (H. 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 Take on empty stomach, 1/2 hr before meal. citalopram (CELEXA) 40 mg tablet Take 1 tablet by mouth once daily. albuterol HFA (VENTOLIN HFA) 90 mcg/actuation inhaler Inhale 2 Puffs as instructed every 4 hours asneeded. fluticasone (FLOVENT HFA) 110 mcg/actuation inhaler Inhale 1 Puff as instructed twice daily. EPINEPHrine (EPIPEN) 0.3 mg/0.3 mL (1:1,000) atIn Inject intramuscularly. use as directed for allergic reaction. Seek emergent medical care immediately after use. predniSONE (DELTASONE) 10 mg tablet Take 4 tabs daily for 3 days, then 2 tabs daily for 3 days, then 1 tab daily for 3 days with food. (Patient not taking: Reported on 02/28/2022) benzonatate (TESSALON PERLE) 100 mg capsule Take 1-2 capsules tid prn, no more than 6 in 24 hours. (Patient not taking: Reported on 11/28/2021) guaiFENesin (MUCINEX) 600 mg 12 hr tablet Take 2 tablets by mouth twice daily. (Patient not taking:Reported on 02/28/2022) Drospirenone-Ethinyl Estradiol 3-0.03 mg per tablet Take 1 tablet by mouth once daily. (Patient nottaking: No sig reported) HYDROcodone-acetaminophen (NORCO) 5-325 mg per tablet HYDROcodone-Acetaminophen (HYCET) 7.5-325 mg/15 mL oral liquid ketotifen fumarate (ZADITOR) 0.025 % (0.035 %) ophthalmic solution (Patient not taking: Reported on07/12/2021) dicyclomine (BENTYL) 10 mg capsule Take 1 capsule by mouth before meals and at bedtime. (Patient not taking: Reported on 02/10/2018 ) LORazepam (ATIVAN) 0.5 mg tab Take 1 tablet by mouth three times daily as needed (anxiety). (Patient not taking: Reported on 06/28/2021) FAMILY HISTORY Problem Relation Age of Onset Arthritis Father Hypertension Father Lipids Father Arthritis Maternal Grandmother Diabetes Maternal Grandmother Diabetes Maternal Grandfather Heart Paternal Grandmother Psychiatry Paternal Grandfather Diabetes Paternal Grandfather Prostate Cancer Paternal Grandfather Heart Paternal Uncle other (ADD) Daughter other (ADHD) Son Social History Tobacco Use Smoking status: Former Types: Cigarettes Quit date: 12/17/2005 Years since quittin.2 Smokeless tobacco: Never Tobacco comments: quit one year ago Substance Use Topics Alcohol use: Yes Comment: Seldom, NOT DURING Drug use: No Objective Physical Exam Vitals and nursing note reviewed. Constitutional: Appearance: She is obese. HENT: Right Ear: Tympanic membrane, ear canal and external ear normal. Left Ear: Tympanic membrane, ear canal and external ear normal. Nose: Nose normal. Mouth/Throat: Pharynx: Uvula midline. No oropharyngeal exudate or posterior oropharyngeal erythema. Cardiovascular: Rate and Rhythm: Normal rate and regular rhythm. Heart sounds: Normal heart sounds. Pulmonary: Effort: Pulmonary effort is normal. No respiratory distress. Breath sounds: Examination of the right-lower field reveals wheezing. Examination of the left-lowerfield reveals wheezing. Wheezing (slight) present. No rales. Musculoskeletal: Cervical back: Neck supple. Lymphadenopathy: Cervical: No cervical adenopathy. Skin: General: Skin is warm and dry. Findings: No erythema or rash. Neurological: Mental Status: She is alert. ASSESSMENT/PLAN: 1. Urinary frequency - ICD9: 788.41, ICD10: R35.0 (primary diagnosis) acute - UA normal in office today - Send urine for culture - Patient education for prevention given - UA DIP, URINE (POC) - URINE CULTURE 2. Wheezing - ICD9: 786.07, ICD10: R06.2 - ALBUTEROL SULFATE HFA 90 MCG/ACTUATION AEROSOL INHALER - INHALATIONAL SPACING DEVICE - PREDNISONE 10 MG TABLET - Follow-up with your PCP in 3-5 days if symptoms have not improved or sooner if symptoms worsen - Discussed red flags and need for immediate medical evaluation if any occur. - Discussed supportive care treatment with fluids, rest and analgesia. - Discussed expected course of illness Adwoa Martines APRN.CNP documented in this encounterBet[facility]11-21-2022 History of Present illness Narrative* Anika Rizzo APRN.CNP - 02/11/2022 7:53 PM EST This note was created using NoteWriter. Subjective Jaclyn Mae is a 41 year old female. 41 year old female with PMH GERD, HSV, and allergic rhinitis presents for complaints of illness. 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 Denies SOB. The history is provided by the patient. No sign language teacher was used. Cough This is a new problem. The current episode started more than 2 days ago. The problem occurs constantly. The problem has not changed since onset.The cough is Non-productive. There has been no fever. Associated symptoms include chills, headaches, rhinorrhea, sore throat, shortness of breath and wheezing. Pertinent negatives include no chest pain, no sweats, no weight loss, no ear congestion, no earpain, no myalgias and no eye redness. She has tried nothing for the symptoms. The treatment provided no relief. She is not a smoker. Her past medical history does not include bronchitis, pneumonia, bronchiectasis, COPD, emphysema or asthma. PAST MEDICAL HISTORY Diagnosis Date Abdominal pain, epigastric Acute gastritis without mention of hemorrhage Anemia Anxiety disorder in conditions classified elsewhere Chronic cholecystitis FRACTURE AGE 10 WRIST,FALL ON ICE GERD (gastroesophageal reflux disease) Helicobacter pylori (H. 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 benzonatate (TESSALON PERLE) 100 mg capsule Take 1-2 capsules tid prn, no more than 6 in 24 hours. (Patient not taking: Reported on 11/28/2021) guaiFENesin (MUCINEX) 600 mg 12 hr tablet Take 2 tablets by mouth twice daily. Drospirenone-Ethinyl Estradiol 3-0.03 mg per tablet Take 1 tablet by mouth once daily. (Patient nottaking: Reported on 06/28/2021 ) HYDROcodone-acetaminophen (NORCO) 5-325 mg per tablet HYDROcodone-Acetaminophen (HYCET) 7.5-325 mg/15 mL oral liquid ketotifen fumarate (ZADITOR) 0.025 % (0.035 %) ophthalmic solution (Patient not taking: Reported on07/12/2021) dicyclomine (BENTYL) 10 mg capsule Take 1 capsule by mouth before meals and at bedtime. (Patient not taking: Reported on 02/10/2018 ) pantoprazole DR (PROTONIX) 40 mg tablet Take 1 tablet by mouth daily before breakfast. Take on empty stomach, 1/2 hr before meal. citalopram (CELEXA) 40 mg tablet Take 1 tablet by mouth once daily. albuterol HFA (VENTOLIN HFA) 90 mcg/actuation inhaler Inhale 2 Puffs as instructed every 4 hours asneeded. fluticasone (FLOVENT HFA) 110 mcg/actuation inhaler Inhale 1 Puff as instructed twice daily. LORazepam (ATIVAN) 0.5 mg tab Take 1 tablet by mouth three times daily as needed (anxiety). (Patient not taking: Reported on 06/28/2021) EPINEPHrine (EPIPEN) 0.3 mg/0.3 mL (1:1,000) atIn Inject intramuscularly. use as directed for allergic reaction. Seek emergent medical care immediately after use. FAMILY HISTORY Problem Relation Age of Onset Arthritis Father Hypertension Father Lipids Father Arthritis Maternal Grandmother Diabetes Maternal Grandmother Diabetes Maternal Grandfather Heart Paternal Grandmother Psychiatry Paternal Grandfather Diabetes Paternal Grandfather Prostate Cancer Paternal Grandfather Heart Paternal Uncle other (ADD) Daughter other (ADHD) Son Social History Tobacco Use Smoking status: Former Types: Cigarettes Quit date: 12/17/2005 Years since quittin.1 Smokeless tobacco: Never Tobacco comments: quit one year ago Substance Use Topics Alcohol use: Yes Comment: Seldom, NOT DURING Drug use: No Review of Systems Constitutional: Positive for chills. Negative for weight loss. HENT: Positive for rhinorrhea and sore throat. Negative for ear pain. Eyes: Negative for redness. Respiratory: Positive for cough, shortness of breath and wheezing. Cardiovascular: Negative for chest pain. Musculoskeletal: Negative for myalgias. Allergic/Immunologic: Negative for environmental allergies. Neurological: Positive for headaches. Objective BP 126/80 Pulse 118 Temp 36.6 C (97.9 F) Resp 20 Wt 97.2 kg (214 lb 3.2 oz) LMP 06/05/2021 SpO2 98% BMI 34.57 kg/m Physical Exam Vitals and nursing note reviewed. Constitutional: General: She is not in acute distress. Appearance: Normal appearance. She is normal weight. She is not ill-appearing, toxic-appearing or diaphoretic. HENT: Head: Normocephalic and atraumatic. Right Ear: Ear canal and external ear normal. Left Ear: Ear canal and external ear normal. Nose: Nose normal. No congestion or rhinorrhea. Mouth/Throat: Mouth: Mucous membranes are moist. Pharynx: No oropharyngeal exudate or posterior oropharyngeal erythema. Eyes: General: Right eye: No discharge. Left eye: No discharge. Extraocular Movements: Extraocular movements intact. Conjunctiva/sclera: Conjunctivae normal. Pupils: Pupils are equal, round, and reactive to light. Cardiovascular: Rate and Rhythm: Normal rate and regular rhythm. Pulses: Normal pulses. Heart sounds: Normal heart sounds. No murmur heard. No friction rub. Pulmonary: Effort: Pulmonary effort is normal. No respiratory distress. Breath sounds: Normal breath sounds. No stridor. No wheezing, rhonchi or rales. Chest: Chest wall: No tenderness. Abdominal: General: Abdomen is flat. There is no distension. Palpations: Abdomen is soft. There is no mass. Tenderness: There is no abdominal tenderness. There is no right CVA tenderness, left CVA tenderness, guarding or rebound. Hernia: No hernia is present. Musculoskeletal: General: No swelling, tenderness, deformity or signs of injury. Normal range of motion. Cervical back: Normal range of motion and neck supple. No rigidity. Right lower leg: No edema. Left lower leg: No edema. Lymphadenopathy: Cervical: No cervical adenopathy. Skin: General: Skin is warm and dry. Capillary Refill: Capillary refill takes less than 2 seconds. Coloration: Skin is not jaundiced or pale. Findings: No bruising, erythema, lesion or rash. Neurological: General: No focal deficit present. Mental Status: She is alert and oriented to person, place, and time. Cranial Nerves: No cranial nerve deficit. Sensory: No sensory deficit. Motor: No weakness. Coordination: Coordination normal. Gait: Gait normal. Psychiatric: Mood and Affect: Mood normal. Behavior: Behavior normal. Thought Content: Thought content normal. Judgment: Judgment normal. Assessment and Plan ASSESSMENT/PLAN: 1. URI, acute - ICD9: 465.9, ICD10: J06.9 (primary diagnosis) - Discussed viral etiology and rationale for treatment. - Symptomatic treatment with prn analgesia - Supportive care with fluids and rest - The patient may also use OTC cough and cold meds as needed, warm salt water gargles, throat lozenges and/or OTC throat spray as needed, nasal saline gtts and suction prn, and RX Prednisone taper. - Follow up in 3-5 days if symptoms persist or sooner if worsening of symptoms - COVID WITH FLUA+B, ROUTINE 2. Acute cough - ICD9: 786.2, ICD10: R05.1 X one week No red flags Denies tobacco usage - COVID WITH FLUA+B, ROUTINE Anika Rizzo APRN.[employer] documented in this encounterBet[facility] History of Present illness Narrative* Reggie Alvarez APRN.SARKIS - 07/12/2021 5:55 PM EDT Images from the original note were not included. Subjective HPI HPI Jaclyn Mae is a 40 year old female who presents today for CC of right little toe injury. This started 2 weeks ago. Has tried otc medication for relief. Symptoms are worsened by walking, rom. Denies history of surgery or injury to right little toe/foot. Denies numbness/tingling of right foot. 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 pantoprazole DR (PROTONIX) 40 mg tablet Take 1 tablet by mouth daily before breakfast. Take on empty stomach, 1/2 hr before meal. citalopram (CELEXA) 40 mg tablet Take 1 tablet by mouth once daily. albuterol HFA (VENTOLIN HFA) 90 mcg/actuation inhaler Inhale 2 Puffs as instructed every 4 hours asneeded. fluticasone (FLOVENT HFA) 110 mcg/actuation inhaler Inhale 1 Puff as instructed twice daily. EPINEPHrine (EPIPEN) 0.3 mg/0.3 mL (1:1,000) atIn Inject intramuscularly. use as directed for allergic reaction. Seek emergent medical care immediately after use. benzonatate (TESSALON PERLE) 100 mg capsule Take 1-2 capsules tid prn, no more than 6 in 24 hours. Drospirenone-Ethinyl Estradiol 3-0.03 mg per tablet Take 1 tablet by mouth once daily. HYDROcodone-acetaminophen (NORCO) 5-325 mg per tablet HYDROcodone-Acetaminophen (HYCET) 7.5-325 mg/15 mL oral liquid ketotifen fumarate (ZADITOR) 0.025 % (0.035 %) ophthalmic solution dicyclomine (BENTYL) 10 mg capsule Take 1 capsule by mouth before meals and at bedtime. LORazepam (ATIVAN) 0.5 mg tab Take 1 tablet by mouth three times daily as needed (anxiety). FAMILY HISTORY Problem Relation Age of Onset Arthritis Father Hypertension Father Lipids Father Arthritis Maternal Grandmother Diabetes Maternal Grandmother Diabetes Maternal Grandfather Heart Paternal Grandmother Psychiatry Paternal Grandfather Diabetes Paternal Grandfather Prostate Cancer Paternal Grandfather Heart Paternal Uncle other (ADD) Daughter other (ADHD) Son Social History Tobacco Use Smoking status: Former Smoker Quit date: 12/17/2005 Years since quittin.5 Smokeless tobacco: Never Used Tobacco comment: quit one year ago Substance Use Topics Alcohol use: Yes Comment: Seldom, NOT DURING Drug use: No ROS Objective Blood pressure 122/76, pulse 87, temperature 36.7 C (98.1 F), resp. rate 16, weight 93.9 kg (207 lb), last menstrual period 06/05/2021, SpO2 98 %. Physical Exam Constitutional: General: She is not in acute distress. Appearance: She is not toxic-appearing or diaphoretic. HENT: Head: Normocephalic and atraumatic. Cardiovascular: Pulses: Dorsalis pedis pulses are 2+ on the right side. Posterior tibial pulses are 2+ on the right side. Pulmonary: Effort: Pulmonary effort is normal. No accessory muscle usage or respiratory distress. Musculoskeletal: Feet: Neurological: Mental Status: She is alert and oriented to person, place, and time. ASSESSMENT/PLAN: 1. 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 Toe injury, right, initial encounter - ICD9: 959.7, ICD10: S99.921A As above. - XR TOE AP/LAT/OBL RIGHT IMPRESSION IMPRESSION: Nondisplaced fracture of the distal fifth proximal phalanx extending to the joint space. Dictated by : DEBORA HINDS MD Agrees to plan Reggie Alvarez APRN.SARKIS documented in this encounterBet[facility]04-07-2022 Instructions* Patient Instructions* Anika Rizzo APRN.CNP - 06/28/2021 7:18 PM EDT [facility] PATIENT INFO PHARYNGITIS OVERVIEW A sore throat (pharyngitis) is a common problem, and usually is caused by a viral or bacterial infection. Sore throat usually resolves on its own without complications in adults, although it is important to know when to seek medical attention. Viruses can cause a sore throat and other upper respiratory infections, such as the common cold. Sore throat caused by a virus is not treated with antibiotics, but instead may be treated with rest, pain medication, and other therapies aimed at relieving symptoms. Strep throat is a particular kind of pharyngitis that is caused by a bacterium known as group A streptococcus (GAS). Strep throat is treated with a course of antibiotics. SORE THROAT SYMPTOMS Viral pharyngitis Most people with a sore throat have a virus. The most common viruses are those that cause upper respiratory infections, such as the common cold. Symptoms of a viral infection can include: A runny or congested nose Irritation or redness of the eyes Cough, hoarseness, or soreness in the roof of the mouth Some viruses cause a fever and can make you feel quite ill. Strep throat Approximately 10 percent of adults with a sore throat have strep throat. Signs and symptoms of strep throat include the following: Pain in the throat Fever (temperature greater than 100.4 F or 38 C) Enlarged lymph glands in the neck White patches of pus on the side or back of the throat No cough, runny nose, or irritation/redness of the eyes Other infections Many other less common but more serious infections can cause a sore throat, including mononucleosis (mono), influenza (the flu), N. gonococcus (gonorrhea), human immunodeficiency virus (HIV), and others. When to seek urgent help See your doctor or nurse immediately if you have a sore throat along with any of the following: Difficulty breathing Skin rash Drooling because you cannot swallow Swelling of the neck or tongue Stiff neck or difficulty opening the mouth SORE THROAT DIAGNOSIS Most people with a sore throat get better without treatment. There is no specific treatment for a sore throat caused by usual cold viruses. Is it strep or not? A combination of symptoms (fever, enlarged glands in the neck, white patches onyour tonsils, and no cough) can help in determining if you have strep. If you have two or more symptoms, a rapid test or throat culture may be done. People with fewer than two symptoms usually do notneed testing or treatment for strep throat. Rapid test The rapid test determines if there are streptococcus bacteria on a throat swab. The testcan be done in a clinician's office and the results are available within a few minutes. The test isaccurate in most cases, although a small percentage of tests are falsely negative (the bacteria arepresent but the test is negative). Throat culture A throat culture involves swabbing the throat, sending the swab to a laboratory, andwaiting 24 to 48 hours for the results. Throat cultures are slightly more accurate than the rapid test. TREATMENT OF SORE THROAT Sore throat treatment Antibiotics do not help throat pain caused by a virus and are not recommended. Sore throat caused by viral infections usually lasts four to five days. During this time, treatments to reduce pain may be helpful. Several therapies can help to relieve throat pain. Pain medication You can treat your throat pain with a mild pain reliever such as acetaminophen (Tylenol ) or a non-steroidal anti-inflammatory agent such as ibuprofen or naproxen (Motrin or Aleve ). Oral rinses Salt-water gargles are an old stand-by for throat pain. It is not clear that salt waterworks to relieve pain, but it is unlikely to be harmful. Most recipes suggest 1/4 to 1/2 teaspoon of salt per one cup (8 ounces) of warm water. Sprays Sprays containing topical anesthetics (eg, benzocaine, phenol) are available to treat sore throat. However, such sprays are no more effective than sucking on hard candy. Lozenges A variety of lozenges (cough drops) are available to treat throat pain or relieve dryness.However, it is not clear that lozenges work any better than other forms of hard candy, which are generally less expensive. Other treatments Other treatments that may help with throat pain include sipping warm beverages (eg, honey or lemon tea, chicken soup), cold beverages, or eating cold or frozen desserts (eg, ice cream, popsicles). Alternative therapies Health food stores, vitamin outlets, and Internet Web sites offer alternativetreatments for relief of sore throat pain. We do not recommend these type of treatments due to the risks of contamination with pesticides/herbicides, inaccurate labeling and dosing information, and alack of studies showing that these treatments are safe and effective. Strep throat Although strep throat typically resolves on its own within two to five days, treatmentwith antibiotics is recommended for adults whose rapid test or throat culture is positive for strepthroat. Penicillin, or an antibiotic related to penicillin, is the treatment of choice for strep throat. Itis usually given in pill or liquid form two to four times per day for 10 days. A one time injectionof penicillin is also available. People who are allergic to penicillin are given an alternate antibiotic. It is important to finish the entire course of treatment to completely eliminate the infection. If symptoms do not begin to improve or worsen by three days of antibiotic treatment, you should seeyour doctor or nurse again. Return to work/school If you have been diagnosed with strep throat, stay home from work or school until you have completed 24 hours of antibiotics. Within 24 hours of beginning antibiotic treatment, you will feel better and will be less contagious [1]. If you have a sore throat (not diagnosed as strep), you may participate in your usual activities assoon as you feel well. SORE THROAT PREVENTION Hand washing is an essential and highly effective way to prevent the spread of infection. Wet your hands with water and plain soap, and rub them together for 15 to 30 seconds. Pay special attention to the fingernails, between the fingers, and the wrists. Rinse your hands thoroughly, and dry them with a clean towel. Alcohol-based hand rubs are a good alternative for disinfecting hands if a sink is not available. Hand rubs should be spread over the entire surface of hands, fingers, and wrists until dry, and may be used several times. These rubs can be used repeatedly without skin irritation or loss of effectiveness. Hand rubs are available as a liquid or wipe in small, portable sizes that are easy to carry in a pocket or handbag. When a sink is available, visibly soiled hands should be washed with soap and water. Wash your hands after coughing, blowing the nose, or sneezing. While it is not always possible to avoid being near a person who is sick, avoiding touching your eyes, nose, or mouth to prevent the spread of infection. In addition, tissues should be used to cover the mouth when sneezing or coughing. These used tissues should be disposed of promptly. Sneezing/coughing into your sleeve (at the inner elbow) is anotherway to contain sprays of saliva and secretions and will not contaminate your hand documented in this encounterBet[facility]04-07-[facility]22 History of Present illness Narrative* Anika Rizzo APRN.CNP - 06/28/2021 7:07 PM EDT This note was created using [employer]. Subjective Jaclyn Mae is a 40 year old female. 40 year old female with PMH anxiety, GERD, asthma presents with complaints of concerns for strep Acute onset of symptoms was 3 days ago +sore throat +headache +body ache +mild cough +nasal congestion Denies fever or chills. Denies SOB or dyspnea. Denies abdominal pain Denies N/V/D Endorses her daughters were ill with similar complaints earlier in the week I have had strep before and want to make sure it is not that The history is provided by the patient. No sign language teacher was used. Sore Throat This is a new problem. The current episode started in the past 7 days. The problem has been unchanged. Neither side of throat is experiencing more pain than the other. There has been no fever. The pain is at a severity of 3/10. The pain is mild. Associated symptoms include congestion and coughing. Pertinent negatives include no abdominal pain, diarrhea, drooling, ear discharge, ear pain, headaches, hoarse voice, plugged ear sensation, neck pain, shortness of breath, stridor, swollen glands, trouble swallowing or vomiting. She has had no exposure to strep or mono. She has tried nothing for thesymptoms. The treatment provided no relief. PAST MEDICAL HISTORY Diagnosis Date Abdominal pain, epigastric Acute gastritis without mention of hemorrhage Anemia Anxiety disorder in conditions classified elsewhere Chronic cholecystitis FRACTURE AGE 10 WRIST,FALL ON ICE GERD (gastroesophageal reflux disease) Helicobacter pylori (H. 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 pantoprazole DR (PROTONIX) 40 mg tablet Take 1 tablet by mouth daily before breakfast. Take on empty stomach, 1/2 hr before meal. citalopram (CELEXA) 40 mg tablet Take 1 tablet by mouth once daily. albuterol HFA (VENTOLIN HFA) 90 mcg/actuation inhaler Inhale 2 Puffs as instructed every 4 hours asneeded. fluticasone (FLOVENT HFA) 110 mcg/actuation inhaler Inhale 1 Puff as instructed twice daily. EPINEPHrine (EPIPEN) 0.3 mg/0.3 mL (1:1,000) atIn Inject intramuscularly. use as directed for allergic reaction. Seek emergent medical care immediately after use. benzonatate (TESSALON PERLE) 100 mg capsule Take 1-2 capsules tid prn, no more than 6 in 24 hours. Drospirenone-Ethinyl Estradiol 3-0.03 mg per tablet Take 1 tablet by mouth once daily. HYDROcodone-acetaminophen (NORCO) 5-325 mg per tablet HYDROcodone-Acetaminophen (HYCET) 7.5-325 mg/15 mL oral liquid ketotifen fumarate (ZADITOR) 0.025 % (0.035 %) ophthalmic solution dicyclomine (BENTYL) 10 mg capsule Take 1 capsule by mouth before meals and at bedtime. LORazepam (ATIVAN) 0.5 mg tab Take 1 tablet by mouth three times daily as needed (anxiety). FAMILY HISTORY Problem Relation Age of Onset Arthritis Father Hypertension Father Lipids Father Arthritis Maternal Grandmother Diabetes Maternal Grandmother Diabetes Maternal Grandfather Heart Paternal Grandmother Psychiatry Paternal Grandfather Diabetes Paternal Grandfather Prostate Cancer Paternal Grandfather Heart Paternal Uncle other (ADD) Daughter other (ADHD) Son Social History Tobacco Use Smoking status: Former Smoker Quit date: 12/17/2005 Years since quittin.5 Smokeless tobacco: Never Used Tobacco comment: quit one year ago Substance Use Topics Alcohol use: Yes Comment: Seldom, NOT DURING Drug use: No Review of Systems Constitutional: Positive for fatigue. Negative for activity change, appetite change and chills. HENT: Positive for congestion and sore throat. Negative for drooling, ear discharge, ear pain, hoarse voice and trouble swallowing. Eyes: Negative for photophobia, pain, discharge, redness, itching and visual disturbance. Respiratory: Positive for cough. Negative for shortness of breath and stridor. Cardiovascular: Negative for chest pain, palpitations and leg swelling. Gastrointestinal: Negative for abdominal pain, diarrhea and vomiting. Musculoskeletal: Negative for arthralgias, back pain and neck pain. Skin: Negative for color change, pallor, rash and wound. Allergic/Immunologic: Negative for environmental allergies, food allergies and immunocompromised state. Neurological: Negative for dizziness, facial asymmetry and headaches. Hematological: Negative for adenopathy. Does not bruise/bleed easily. Psychiatric/Behavioral: Negative for agitation and behavioral problems. Objective BP 124/72 Pulse 94 Temp 36.6 C (97.8 F) Resp 18 Wt 94.1 kg (207 lb 6.4 oz) LMP 06/05/2021 SpO2 99% BMI 33.48 kg/m Physical Exam Vitals and nursing note reviewed. Constitutional: General: She is not in acute distress. Appearance: Normal appearance. She is normal weight. She is not ill-appearing, toxic-appearing or diaphoretic. HENT: Head: Normocephalic and atraumatic. Right Ear: Ear canal and external ear normal. Left Ear: Ear canal and external ear normal. Nose: Nose normal. No congestion or rhinorrhea. Mouth/Throat: Mouth: Mucous membranes are moist. Pharynx: Posterior oropharyngeal erythema (mild erythema. Uvula midline. Handling secretions) present. No oropharyngeal exudate. Eyes: General: Right eye: No discharge. Left eye: No discharge. Extraocular Movements: Extraocular movements intact. Conjunctiva/sclera: Conjunctivae normal. Pupils: Pupils are equal, round, and reactive to light. Cardiovascular: Rate and Rhythm: Normal rate and regular rhythm. Pulses: Normal pulses. Heart sounds: Normal heart sounds. No murmur heard. No friction rub. Pulmonary: Effort: Pulmonary effort is normal. No respiratory distress. Breath sounds: Normal breath sounds. No stridor. No wheezing, rhonchi or rales. Chest: Chest wall: No tenderness. Abdominal: General: Abdomen is flat. There is no distension. Palpations: Abdomen is soft. There is no mass. Tenderness: There is no abdominal tenderness. There is no right CVA tenderness, left CVA tenderness, guarding or rebound. Hernia: No hernia is present. Musculoskeletal: General: No swelling, tenderness, deformity or signs of injury. Normal range of motion. Cervical back: Normal range of motion and neck supple. No rigidity. Right lower leg: No edema. Left lower leg: No edema. Lymphadenopathy: Cervical: No cervical adenopathy. Skin: General: Skin is warm and dry. Capillary Refill: Capillary refill takes less than 2 seconds. Coloration: Skin is not jaundiced or pale. Findings: No bruising, erythema, lesion or rash. Neurological: General: No focal deficit present. Mental Status: She is alert and oriented to person, place, and time. Cranial Nerves: No cranial nerve deficit. Sensory: No sensory deficit. Motor: No weakness. Coordination: Coordination normal. Gait: Gait normal. Psychiatric: Mood and Affect: Mood normal. Behavior: Behavior normal. Thought Content: Thought content normal. Judgment: Judgment normal. Assessment and Plan ASSESSMENT/PLAN: 1. Pharyngitis, unspecified etiology - ICD9: 462, ICD10: J02.9 (primary diagnosis) - suspect viral - Alere Strep Test NEGATIVE, no culture pending - Discussed supportive care treatment with fluids, rest and analgesia. - The patient may also use OTC cough and cold meds as needed and warm salt water gargles, throat lozenges and/or OTC throat spray as needed. - Contagious dz precautions discussed- including considered contagious until on antibiotics for 24 hours - The patient should follow up in 3-5 days if symptoms persist or worsen - Call back if drooling, increased temperature, symptoms of dehydration and/or still sick in one week - STREP A MOLECULAR (POC) 2. Viral illness - ICD9: 079.99, ICD10: B34.9 - Discussed viral etiology and rationale for treatment. - Symptomatic treatment with prn analgesia - Supportive care with fluids and rest Anika Rizzo APRN.[employer] documented [facility] History of Past illness Narrative* Problem Noted Date Resolved Date First trimester bleeding 05/25/2012 013 Overview: 05/25/2012Patient was seen on April 28 for spotting in . An ultrasound was done May 08 that revealed an intrauterine at 6 weeks and 1 day. She was seen at [facility] emergency room on May 14 for heavy bleeding. She saw Dr. Ro on May 18, and the bleeding has remained red to brown spotting since then. See linked visit in epic. Patient denies any pain. Nausea and vomiting in 05/25/2012 07/06/2012 Overview: 05/25/2012Patient is requesting medication to treat nausea. Discussed nausea vomiting in . Patient is to call/come in if she is unable to keep any food or fluids down in a 24-hour period. Phenergan prescription given to patient by Dr. Murphy. History of labor 05/25/2012 018 Overview: 05/25/2012 Pt has a history of labor with her first child and last child beginning at 32 weeks. She was treated at [facility] with Mag Sulfate. She went on to deliver both children at term. She denies any labor with her 2 other pregnancies. Signs and symptoms of PTL discussed and the importance of going to the hospital at onset of PTL should it occur. Rh negative status during 05/25/2012 06/12/2017 Overview: 05/25/2012Pt is RH negative. She is a Rhogam candidate. History of hemorrhage, currently preg nant 05/25/2012 06/12/2017 Overview: 05/25/2012Patient states she had hemorrhage with her last delivery. GBS (group B streptococcus) UTI complicating pre gnancy 10/18/2011 04/10/2012 Supervision of other normal 08/07/2011 04/10/2012 Rh negative status during 08/07/2011 04/10/2012 FHx: cleft palate 08/07/2011 07/06/2012 Overview: son with cleft palate Carpal tunnel syndrome on right 01/04/2010 07/12/2011 Acute gastritis without mention of hemorrhage 08/28/2011 Abdominal pain, epigastric 05/22/200707/11 Iron deficiency anemia, unspecified 04/15/2007 07/12/2011 Calculus of gallbladder with other cholecystitis, without mention of obstruction 04/13/2007 07/12/2011 Eating disorder, unspecified 03/27/2007 Allergy to seafood 12/16/2006 07/06/2012 Pain in joint, lower leg 11/17/2006 012 Supervision of other high-risk (V23.89) 08/13/2006 01/04/2010 Cough 07/25/2006 07/12/2011 Supervision of other normal 01/21/2006 01/04/2010 Anxiety state, unspecified 04/01/200507/06 Overview: 05/25/2012She has a history of anxiety attacks since [address] James. documented as of this encounter (statuses as of 06/28/2021) [facility] of Past illness Narrative* Problem Noted Date Resolved Date First trimester bleeding 05/25/2012 013 Overview: 05/25/2012Patient was seen on April 28 for spotting in . An ultrasound was done May 08 that revealed an intrauterine at 6 weeks and 1 day. She was seen at [facility] emergency room on May 14 for heavy bleeding. She saw Dr. Ro on May 18, and the bleeding has remained red to brown spotting since then. See linked visit in epic. Patient denies any pain. Nausea and vomiting in 05/25/2012 07/06/2012 Overview: 05/25/2012Patient is requesting medication to treat nausea. Discussed nausea vomiting in . Patient is to call/come in if she is unable to keep any food or fluids down in a 24-hour period. Phenergan prescription given to patient by Dr. Murphy. History of labor 05/25/2012 018 Overview: 05/25/2012 Pt has a history of labor with her first child and last child beginning at 32 weeks. She was treated at [facility] with Mag Sulfate. She went on to deliver both children at term. She denies any labor with her 2 other pregnancies. Signs and symptoms of PTL discussed and the importance of going to the hospital at onset of PTL should it occur. Rh negative status during 05/25/2012 06/12/2017 Overview: 05/25/2012Pt is RH negative. She is a Rhogam candidate. History of hemorrhage, currently preg nant 05/25/2012 06/12/2017 Overview: 05/25/2012Patient states she had hemorrhage with her last delivery. GBS (group B streptococcus) UTI complicating pre gnancy 10/18/2011 04/10/2012 Supervision of other normal 08/07/2011 04/10/2012 Rh negative status during 08/07/2011 04/10/2012 FHx: cleft palate 08/07/2011 07/06/2012 Overview: son with cleft palate Carpal tunnel syndrome on right 01/04/2010 07/12/2011 Acute gastritis without mention of hemorrhage 08/28/2011 Abdominal pain, epigastric 05/22/200707/11 Iron deficiency anemia, unspecified 04/15/2007 07/12/2011 Calculus of gallbladder with other cholecystitis, without mention of obstruction 04/13/2007 07/12/2011 Eating disorder, unspecified 03/27/2007 Allergy to seafood 12/16/2006 07/06/2012 Pain in joint, lower leg 11/17/2006 012 Supervision of other high-risk (V23.89) 08/13/2006 01/04/2010 Cough 07/25/2006 07/12/2011 Supervision of other normal 01/21/2006 01/04/2010 Anxiety state, unspecified 04/01/200507/06 Overview: 05/25/2012She has a history of anxiety attacks since [address] James. documented as of this encounter (statuses as of 07/12/2021) [facility] of Past illness Narrative* Problem Noted Date Resolved Date First trimester bleeding 05/25/2012 013 Overview: 05/25/2012Patient was seen on April 28 for spotting in . An ultrasound was done May 08 that revealed an intrauterine at 6 weeks and 1 day. She was seen at [facility] emergency room on May 14 for heavy bleeding. She saw Dr. Ro on May 18, and the bleeding has remained red to brown spotting since then. See linked visit in epic. Patient denies any pain. Nausea and vomiting in 05/25/2012 07/06/2012 Overview: 05/25/2012Patient is requesting medication to treat nausea. Discussed nausea vomiting in . Patient is to call/come in if she is unable to keep any food or fluids down in a 24-hour period. Phenergan prescription given to patient by Dr. Murphy. History of labor 05/25/2012 018 Overview: 05/25/2012 Pt has a history of labor with her first child and last child beginning at 32 weeks. She was treated at [facility] with Mag Sulfate. She went on to deliver both children at term. She denies any labor with her 2 other pregnancies. Signs and symptoms of PTL discussed and the importance of going to the hospital at onset of PTL should it occur. Rh negative status during 05/25/2012 06/12/2017 Overview: 05/25/2012Pt is RH negative. She is a Rhogam candidate. History of hemorrhage, currently preg nant 05/25/2012 06/12/2017 Overview: 05/25/2012Patient states she had hemorrhage with her last delivery. GBS (group B streptococcus) UTI complicating pre gnancy 10/18/2011 04/10/2012 Supervision of other normal 08/07/2011 04/10/2012 Rh negative status during 08/07/2011 04/10/2012 FHx: cleft palate 08/07/2011 07/06/2012 Overview: son with cleft palate Carpal tunnel syndrome on right 01/04/2010 07/12/2011 Acute gastritis without mention of hemorrhage 08/28/2011 Abdominal pain, epigastric 05/22/200707/11 Iron deficiency anemia, unspecified 04/15/2007 07/12/2011 Calculus of gallbladder with other cholecystitis, without mention of obstruction 04/13/2007 07/12/2011 Eating disorder, unspecified 03/27/2007 Allergy to seafood 12/16/2006 07/06/2012 Pain in joint, lower leg 11/17/2006 012 Supervision of other high-risk (V23.89) 08/13/2006 01/04/2010 Cough 07/25/2006 07/12/2011 Supervision of other normal 01/21/2006 01/04/2010 Anxiety state, unspecified 04/01/200507/06 Overview: 05/25/2012She has a history of anxiety attacks since [address] James. documented as of this encounter (statuses as of 02/12/2022) [facility] of Past illness Narrative* Problem Noted Date Resolved Date First trimester bleeding 05/25/2012 013 Overview: 05/25/2012Patient was seen on April 28 for spotting in . An ultrasound was done May 08 that revealed an intrauterine at 6 weeks and 1 day. She was seen at [facility] emergency room on May 14 for heavy bleeding. She saw Dr. Ro on May 18, and the bleeding has remained red to brown spotting since then. See linked visit in epic. Patient denies any pain. Nausea and vomiting in 05/25/2012 07/06/2012 Overview: 05/25/2012Patient is requesting medication to treat nausea. Discussed nausea vomiting in . Patient is to call/come in if she is unable to keep any food or fluids down in a 24-hour period. Phenergan prescription given to patient by Dr. Murphy. History of labor 05/25/2012 018 Overview: 05/25/2012 Pt has a history of labor with her first child and last child beginning at 32 weeks. She was treated at [facility] with Mag Sulfate. She went on to deliver both children at term. She denies any labor with her 2 other pregnancies. Signs and symptoms of PTL discussed and the importance of going to the hospital at onset of PTL should it occur. Rh negative status during 05/25/2012 06/12/2017 Overview: 05/25/2012Pt is RH negative. She is a Rhogam candidate. History of hemorrhage, currently preg nant 05/25/2012 06/12/2017 Overview: 05/25/2012Patient states she had hemorrhage with her last delivery. GBS (group B streptococcus) UTI complicating pre gnancy 10/18/2011 04/10/2012 Supervision of other normal 08/07/2011 04/10/2012 Rh negative status during 08/07/2011 04/10/2012 FHx: cleft palate 08/07/2011 07/06/2012 Overview: son with cleft palate Carpal tunnel syndrome on right 01/04/2010 07/12/2011 Acute gastritis without mention of hemorrhage 08/28/2011 Abdominal pain, epigastric 05/22/200707/11 Iron deficiency anemia, unspecified 04/15/2007 07/12/2011 Calculus of gallbladder with other cholecystitis, without mention of obstruction 04/13/2007 07/12/2011 Eating disorder, unspecified 03/27/2007 Allergy to seafood 12/16/2006 07/06/2012 Pain in joint, lower leg 11/17/2006 012 Supervision of other high-risk (V23.89) 08/13/2006 01/04/2010 Cough 07/25/2006 07/12/2011 Supervision of other normal 01/21/2006 01/04/2010 Anxiety state, unspecified 04/01/200507/06 Overview: 05/25/2012She has a history of anxiety attacks since [address] James. documented as of this encounter (statuses as of 03/01/2022) [facility] of Past illness Narrative* Problem Noted Date Resolved Date First trimester bleeding 05/25/2012 013 Overview: 05/25/2012Patient was seen on April 28 for spotting in . An ultrasound was done May 08 that revealed an intrauterine at 6 weeks and 1 day. She was seen at [facility] emergency room on May 14 for heavy bleeding. She saw Dr. Ro on May 18, and the bleeding has remained red to brown spotting since then. See linked visit in epic. Patient denies any pain. Nausea and vomiting in 05/25/2012 07/06/2012 Overview: 05/25/2012Patient is requesting medication to treat nausea. Discussed nausea vomiting in . Patient is to call/come in if she is unable to keep any food or fluids down in a 24-hour period. Phenergan prescription given to patient by Dr. Murphy. History of labor 05/25/2012 018 Overview: 05/25/2012 Pt has a history of labor with her first child and last child beginning at 32 weeks. She was treated at [facility] with Mag Sulfate. She went on to deliver both children at term. She denies any labor with her 2 other pregnancies. Signs and symptoms of PTL discussed and the importance of going to the hospital at onset of PTL should it occur. Rh negative status during 05/25/2012 06/12/2017 Overview: 05/25/2012Pt is RH negative. She is a Rhogam candidate. History of hemorrhage, currently preg nant 05/25/2012 06/12/2017 Overview: 05/25/2012Patient states she had hemorrhage with her last delivery. GBS (group B streptococcus) UTI complicating pre gnancy 10/18/2011 04/10/2012 Supervision of other normal 08/07/2011 04/10/2012 Rh negative status during 08/07/2011 04/10/2012 FHx: cleft palate 08/07/2011 07/06/2012 Overview: son with cleft palate Carpal tunnel syndrome on right 01/04/2010 07/12/2011 Acute gastritis without mention of hemorrhage 08/28/2011 Abdominal pain, epigastric 05/22/200707/11 Iron deficiency anemia, unspecified 04/15/2007 07/12/2011 Calculus of gallbladder with other cholecystitis, without mention of obstruction 04/13/2007 07/12/2011 Eating disorder, unspecified 03/27/2007 Allergy to seafood 12/16/2006 07/06/2012 Pain in joint, lower leg 11/17/2006 012 Supervision of other high-risk (V23.89) 08/13/2006 01/04/2010 Cough 07/25/2006 07/12/2011 Supervision of other normal 01/21/2006 01/04/2010 Anxiety state, unspecified 04/01/200507/06 Overview: 05/25/2012She has a history of anxiety attacks since [address] James. documented as of this encounter (statuses as of 03/02/2022) [facility] of [facility] illness Narrative* Problem Noted Date Diagnosed Date Resolved Date First trimester bleeding 05/25/2012 Overview: 05/25/2012Patient was seen on April 28 for spotting in . An ultrasound was done May 08 that revealed an intrauterine at 6 weeks and 1 day. She was seen at [facility] emergency room on May 14 for heavy bleeding. She saw Dr. Ro on May 18, and the bleeding has remained red to brown spotting since then. See linked visit in epic. Patient denies any pain. Nausea and vomiting in 05/25/2012 07/06/2012 Overview: 05/25/2012Patient is requesting medication to treat nausea. Discussed nausea vomiting in . Patient is to call/come in if she is unable to keep any food or fluids down in a 24-hour period. Phenergan prescription given to patient by Dr. Murphy. History of labor 05/25/2012 Overview: 05/25/2012 Pt has a history of labor with her first child and last child beginning at 32 weeks. She was treated at [facility] with Mag Sulfate. She went on to deliver both children at term. She denies any labor with her 2 other pregnancies. Signs and symptoms of PTL discussed and the importance of going to the hospital at onset of PTL should it occur. Rh negative status during 05/25/2012 06/12/2017 Overview: 05/25/2012Pt is RH negative. She is a Rhogam candidate. History of hemorr denice, currently 05/25/2012 06/12/2017 Overview: 05/25/2012Patient states she had hemorrhage with her last delivery. GBS (group B streptococcus) UTI complicating 10/18/2011 04/10/2012 Supervision of other normal 08/07/2011 04/10/2012 Rh negative status during 08/07/2011 04/10/2012 FHx: cleft palate 08/07/2011 07/06/2012 Overview: son with cleft palate Carpal tunnel syndrome on right 01/04/2010 07/12/2011 Acute gastritis without mention of hemorrhage 05/22/19 08 08/28/2011 Abdominal pain, epigastric 05/22/2007 0 07/12/2011 Iron deficiency anemia, unspecified 04/15/2007 07/12/2011 Calculus of gallbladder with other cholecystitis, without mention of obstruction 04/13/2007 07/12/2011 Eating disorder, unspecified 03/27/2007 07/12/2011 Allergy to seafood 12/16/2006 3 Pain in joint, lower leg 11/17/2006 Supervision of other high-ri sk (V23.89) 08/13/2006 01/04/2010 Cough 07/25/2006 07/12/2011 Supervision of other normal 01/21/2006 01/04/2010 Anxiety state, unspecified 04/01/2005 0 07/06/2012 Overview: 05/25/2012She has a history of anxiety attacks since [address] James. documented as of this encounter (statuses as of 11/19/2022) [facility] of [facility] illness Narrative* Problem Noted Date Diagnosed Date Resolved Date First trimester bleeding 05/25/2012 Overview: 05/25/2012Patient was seen on April 28 for spotting in . An ultrasound was done May 08 that revealed an intrauterine at 6 weeks and 1 day. She was seen at [facility] emergency room on May 14 for heavy bleeding. She saw Dr. Ro on May 18, and the bleeding has remained red to brown spotting since then. See linked visit in epic. Patient denies any pain. Nausea and vomiting in 05/25/2012 07/06/2012 Overview: 05/25/2012Patient is requesting medication to treat nausea. Discussed nausea vomiting in . Patient is to call/come in if she is unable to keep any food or fluids down in a 24-hour period. Phenergan prescription given to patient by Dr. Murphy. History of labor 05/25/2012 Overview: 05/25/2012 Pt has a history of labor with her first child and last child beginning at 32 weeks. She was treated at [facility] with Mag Sulfate. She went on to deliver both children at term. She denies any labor with her 2 other pregnancies. Signs and symptoms of PTL discussed and the importance of going to the hospital at onset of PTL should it occur. Rh negative status during 05/25/2012 06/12/2017 Overview: 05/25/2012Pt is RH negative. She is a Rhogam candidate. History of hemorr denice, currently 05/25/2012 06/12/2017 Overview: 05/25/2012Patient states she had hemorrhage with her last delivery. GBS (group B streptococcus) UTI complicating 10/18/2011 04/10/2012 Supervision of other normal 08/07/2011 04/10/2012 Rh negative status during 08/07/2011 04/10/2012 FHx: cleft palate 08/07/2011 07/06/2012 Overview: son with cleft palate Carpal tunnel syndrome on right 01/04/2010 07/12/2011 Acute gastritis without mention of hemorrhage 05/22/19 08 08/28/2011 Abdominal pain, epigastric 05/22/2007 0 07/12/2011 Iron deficiency anemia, unspecified 04/15/2007 07/12/2011 Calculus of gallbladder with other cholecystitis, without mention of obstruction 04/13/2007 07/12/2011 Eating disorder, unspecified 03/27/2007 07/12/2011 Allergy to seafood 12/16/2006 3 Pain in joint, lower leg 11/17/2006 Supervision of other high-ri sk (V23.89) 08/13/2006 01/04/2010 Cough 07/25/2006 07/12/2011 Supervision of other normal 01/21/2006 01/04/2010 Anxiety state, unspecified 04/01/2005 0 07/06/2012 Overview: 05/25/2012She has a history of anxiety attacks since [address] James. documented as of this encounter (statuses as of 11/27/2022) [facility] of Past illness Narrative* Problem Noted Date Diagnosed Date Resolved Date First trimester bleeding 05/25/2012 Overview: 05/25/2012Patient was seen on April 28 for spotting in . An ultrasound was done May 08 that revealed an intrauterine at 6 weeks and 1 day. She was seen at [facility] emergency room on May 14 for heavy bleeding. She saw Dr. Ro on May 18, and the bleeding has remained red to brown spotting since then. See linked visit in epic. Patient denies any pain. Nausea and vomiting in 05/25/2012 07/06/2012 Overview: 05/25/2012Patient is requesting medication to treat nausea. Discussed nausea vomiting in . Patient is to call/come in if she is unable to keep any food or fluids down in a 24-hour period. Phenergan prescription given to patient by Dr. Murphy. History of labor 05/25/2012 Overview: 05/25/2012 Pt has a history of labor with her first child and last child beginning at 32 weeks. She was treated at [facility] with Mag Sulfate. She went on to deliver both children at term. She denies any labor with her 2 other pregnancies. Signs and symptoms of PTL discussed and the importance of going to the hospital at onset of PTL should it occur. Rh negative status during 05/25/2012 06/12/2017 Overview: 05/25/2012Pt is RH negative. She is a Rhogam candidate. History of hemorr denice, currently 05/25/2012 06/12/2017 Overview: 05/25/2012Patient states she had hemorrhage with her last delivery. GBS (group B streptococcus) UTI complicating 10/18/2011 04/10/2012 Supervision of other normal 08/07/2011 04/10/2012 Rh negative status during 08/07/2011 04/10/2012 FHx: cleft palate 08/07/2011 07/06/2012 Overview: son with cleft palate Carpal tunnel syndrome on right 01/04/2010 07/12/2011 Acute gastritis without mention of hemorrhage 05/22/19 08 08/28/2011 Abdominal pain, epigastric 05/22/2007 0 07/12/2011 Iron deficiency anemia, unspecified 04/15/2007 07/12/2011 Calculus of gallbladder with other cholecystitis, without mention of obstruction 04/13/2007 07/12/2011 Eating disorder, unspecified 03/27/2007 07/12/2011 Allergy to seafood 12/16/2006 3 Pain in joint, lower leg 11/17/2006 Supervision of other high-ri sk (V23.89) 08/13/2006 01/04/2010 Cough 07/25/2006 07/12/2011 Supervision of other normal 01/21/2006 01/04/2010 Anxiety state, unspecified 04/01/2005 0 07/06/2012 Overview: 05/25/2012She has a history of anxiety attacks since [address] James. documented as of this encounter (statuses as of 11/29/2022) [facility] of Past illness Narrative* Problem Noted Date Diagnosed Date Resolved Date First trimester bleeding 05/25/2012 Overview: 05/25/2012Patient was seen on April 28 for spotting in . An ultrasound was done May 08 that revealed an intrauterine at 6 weeks and 1 day. She was seen at [facility] emergency room on May 14 for heavy bleeding. She saw Dr. Ro on May 18, and the bleeding has remained red to brown spotting since then. See linked visit in epic. Patient denies any pain. Nausea and vomiting in 05/25/2012 07/06/2012 Overview: 05/25/2012Patient is requesting medication to treat nausea. Discussed nausea vomiting in . Patient is to call/come in if she is unable to keep any food or fluids down in a 24-hour period. Phenergan prescription given to patient by Dr. Murphy. History of labor 05/25/2012 Overview: 05/25/2012 Pt has a history of labor with her first child and last child beginning at 32 weeks. She was treated at [facility] with Mag Sulfate. She went on to deliver both children at term. She denies any labor with her 2 other pregnancies. Signs and symptoms of PTL discussed and the importance of going to the hospital at onset of PTL should it occur. Rh negative status during 05/25/2012 06/12/2017 Overview: 05/25/2012Pt is RH negative. She is a Rhogam candidate. History of hemorr denice, currently 05/25/2012 06/12/2017 Overview: 05/25/2012Patient states she had hemorrhage with her last delivery. GBS (group B streptococcus) UTI complicating 10/18/2011 04/10/2012 Supervision of other normal 08/07/2011 04/10/2012 Rh negative status during 08/07/2011 04/10/2012 FHx: cleft palate 08/07/2011 07/06/2012 Overview: son with cleft palate Carpal tunnel syndrome on right 01/04/2010 07/12/2011 Acute gastritis without mention of hemorrhage 05/22/19 08 08/28/2011 Abdominal pain, epigastric 05/22/2007 0 07/12/2011 Iron deficiency anemia, unspecified 04/15/2007 07/12/2011 Calculus of gallbladder with other cholecystitis, without mention of obstruction 04/13/2007 07/12/2011 Eating disorder, unspecified 03/27/2007 07/12/2011 Allergy to seafood 12/16/2006 3 Pain in joint, lower leg 11/17/2006 Supervision of other high-ri sk (V23.89) 08/13/2006 01/04/2010 Cough 07/25/2006 07/12/2011 Supervision of other normal 01/21/2006 01/04/2010 Anxiety state, unspecified 04/01/2005 0 07/06/2012 Overview: 05/25/2012She has a history of anxiety attacks since [address] James. documented as of this encounter (statuses as of 12/04/2022) [facility] of Past illness Narrative* Problem Noted Date Diagnosed Date Resolved Date First trimester bleeding 05/25/2012 Overview: 05/25/2012Patient was seen on April 28 for spotting in . An ultrasound was done May 08 that revealed an intrauterine at 6 weeks and 1 day. She was seen at [facility] emergency room on May 14 for heavy bleeding. She saw Dr. Ro on May 18, and the bleeding has remained red to brown spotting since then. See linked visit in epic. Patient denies any pain. Nausea and vomiting in 05/25/2012 07/06/2012 Overview: 05/25/2012Patient is requesting medication to treat nausea. Discussed nausea vomiting in . Patient is to call/come in if she is unable to keep any food or fluids down in a 24-hour period. Phenergan prescription given to patient by Dr. Murphy. History of labor 05/25/2012 Overview: 05/25/2012 Pt has a history of labor with her first child and last child beginning at 32 weeks. She was treated at [facility] with Mag Sulfate. She went on to deliver both children at term. She denies any labor with her 2 other pregnancies. Signs and symptoms of PTL discussed and the importance of going to the hospital at onset of PTL should it occur. Rh negative status during 05/25/2012 06/12/2017 Overview: 05/25/2012Pt is RH negative. She is a Rhogam candidate. History of hemorr denice, currently 05/25/2012 06/12/2017 Overview: 05/25/2012Patient states she had hemorrhage with her last delivery. GBS (group B streptococcus) UTI complicating 10/18/2011 04/10/2012 Supervision of other normal 08/07/2011 04/10/2012 Rh negative status during 08/07/2011 04/10/2012 FHx: cleft palate 08/07/2011 07/06/2012 Overview: son with cleft palate Carpal tunnel syndrome on right 01/04/2010 07/12/2011 Acute gastritis without mention of hemorrhage 05/22/19 08 08/28/2011 Abdominal pain, epigastric 05/22/2007 0 07/12/2011 Iron deficiency anemia, unspecified 04/15/2007 07/12/2011 Calculus of gallbladder with other cholecystitis, without mention of obstruction 04/13/2007 07/12/2011 Eating disorder, unspecified 03/27/2007 07/12/2011 Allergy to seafood 12/16/2006 3 Pain in joint, lower leg 11/17/2006 Supervision of other high-ri sk (V23.89) 08/13/2006 01/04/2010 Cough 07/25/2006 07/12/2011 Supervision of other normal 01/21/2006 01/04/2010 Anxiety state, unspecified 04/01/2005 0 07/06/2012 Overview: 05/25/2012She has a history of anxiety attacks since [address] James. documented as of this encounter (statuses as of 01/29/2023) [facility] History of Past illness Narrative* Problem Noted Date Diagnosed Date Resolved Date First trimester bleeding 05/25/2012 Overview: 05/25/2012Patient was seen on April 28 for spotting in . An ultrasound was done May 08 that revealed an intrauterine at 6 weeks and 1 day. She was seen at [facility] emergency room on May 14 for heavy bleeding. She saw Dr. Ro on May 18, and the bleeding has remained red to brown spotting since then. See linked visit in epic. Patient denies any pain. Nausea and vomiting in 05/25/2012 07/06/2012 Overview: 05/25/2012Patient is requesting medication to treat nausea. Discussed nausea vomiting in . Patient is to call/come in if she is unable to keep any food or fluids down in a 24-hour period. Phenergan prescription given to patient by Dr. Murphy. History of labor 05/25/2012 Overview: 05/25/2012 Pt has a history of labor with her first child and last child beginning at 32 weeks. She was treated at [facility] with Mag Sulfate. She went on to deliver both children at term. She denies any labor with her 2 other pregnancies. Signs and symptoms of PTL discussed and the importance of going to the hospital at onset of PTL should it occur. Rh negative status during 05/25/2012 06/12/2017 Overview: 05/25/2012Pt is RH negative. She is a Rhogam candidate. History of hemorr denice, currently 05/25/2012 06/12/2017 Overview: 05/25/2012Patient states she had hemorrhage with her last delivery. GBS (group B streptococcus) UTI complicating 10/18/2011 04/10/2012 Supervision of other normal 08/07/2011 04/10/2012 Rh negative status during 08/07/2011 04/10/2012 FHx: cleft palate 08/07/2011 07/06/2012 Overview: son with cleft palate Carpal tunnel syndrome on right 01/04/2010 07/12/2011 Acute gastritis without mention of hemorrhage 05/22/19 08 08/28/2011 Abdominal pain, epigastric 05/22/2007 0 07/12/2011 Iron deficiency anemia, unspecified 04/15/2007 07/12/2011 Calculus of gallbladder with other cholecystitis, without mention of obstruction 04/13/2007 07/12/2011 Eating disorder, unspecified 03/27/2007 07/12/2011 Allergy to seafood 12/16/2006 3 Pain in joint, lower leg 11/17/2006 Supervision of other high-ri sk (V23.89) 08/13/2006 01/04/2010 Cough 07/25/2006 07/12/2011 Supervision of other normal 01/21/2006 01/04/2010 Anxiety state, unspecified 04/01/2005 0 07/06/2012 Overview: 05/25/2012She has a history of anxiety attacks since [address] James. documented as of this encounter (statuses as of 05/24/2023) [facility] History of Past illness Narrative* Problem Noted Date Diagnosed Date Resolved Date First trimester bleeding 05/25/2012 Overview: 05/25/2012Patient was seen on April 28 for spotting in . An ultrasound was done May 08 that revealed an intrauterine at 6 weeks and 1 day. She was seen at [facility] emergency room on May 14 for heavy bleeding. She saw Dr. Ro on May 18, and the bleeding has remained red to brown spotting since then. See linked visit in epic. Patient denies any pain. Nausea and vomiting in 05/25/2012 07/06/2012 Overview: 05/25/2012Patient is requesting medication to treat nausea. Discussed nausea vomiting in . Patient is to call/come in if she is unable to keep any food or fluids down in a 24-hour period. Phenergan prescription given to patient by Dr. Murphy. History of labor 05/25/2012 Overview: 05/25/2012 Pt has a history of labor with her first child and last child beginning at 32 weeks. She was treated at [facility] with Mag Sulfate. She went on to deliver both children at term. She denies any labor with her 2 other pregnancies. Signs and symptoms of PTL discussed and the importance of going to the hospital at onset of PTL should it occur. Rh negative status during 05/25/2012 06/12/2017 Overview: 05/25/2012Pt is RH negative. She is a Rhogam candidate. History of hemorr denice, currently 05/25/2012 06/12/2017 Overview: 05/25/2012Patient states she had hemorrhage with her last delivery. GBS (group B streptococcus) UTI complicating 10/18/2011 04/10/2012 Supervision of other normal 08/07/2011 04/10/2012 Rh negative status during 08/07/2011 04/10/2012 FHx: cleft palate 08/07/2011 07/06/2012 Overview: son with cleft palate Carpal tunnel syndrome on right 01/04/2010 07/12/2011 Acute gastritis without mention of hemorrhage 05/22/19 08 08/28/2011 Abdominal pain, epigastric 05/22/2007 0 07/12/2011 Iron deficiency anemia, unspecified 04/15/2007 07/12/2011 Calculus of gallbladder with other cholecystitis, without mention of obstruction 04/13/2007 07/12/2011 Eating disorder, unspecified 03/27/2007 07/12/2011 Allergy to seafood 12/16/2006 3 Pain in joint, lower leg 11/17/2006 Supervision of other high-ri sk (V23.89) 08/13/2006 01/04/2010 Cough 07/25/2006 07/12/2011 Supervision of other normal 01/21/2006 01/04/2010 Anxiety state, unspecified 04/01/2005 0 07/06/2012 Overview: 05/25/2012She has a history of anxiety attacks since [address] James. documented as of this encounter (statuses as of 05/27/2023) [facility] History of Past illness Narrative* Problem Noted Date Diagnosed Date Resolved Date First trimester bleeding 05/25/2012 Overview: 05/25/2012Patient was seen on April 28 for spotting in . An ultrasound was done May 08 that revealed an intrauterine at 6 weeks and 1 day. She was seen at [facility] emergency room on May 14 for heavy bleeding. She saw Dr. Ro on May 18, and the bleeding has remained red to brown spotting since then. See linked visit in epic. Patient denies any pain. Nausea and vomiting in 05/25/2012 07/06/2012 Overview: 05/25/2012Patient is requesting medication to treat nausea. Discussed nausea vomiting in . Patient is to call/come in if she is unable to keep any food or fluids down in a 24-hour period. Phenergan prescription given to patient by Dr. Murphy. History of labor 05/25/2012 Overview: 05/25/2012 Pt has a history of labor with her first child and last child beginning at 32 weeks. She was treated at [facility] with Mag Sulfate. She went on to deliver both children at term. She denies any labor with her 2 other pregnancies. Signs and symptoms of PTL discussed and the importance of going to the hospital at onset of PTL should it occur. Rh negative status during 05/25/2012 06/12/2017 Overview: 05/25/2012Pt is RH negative. She is a Rhogam candidate. History of hemorr denice, currently 05/25/2012 06/12/2017 Overview: 05/25/2012Patient states she had hemorrhage with her last delivery. GBS (group B streptococcus) UTI complicating 10/18/2011 04/10/2012 Supervision of other normal 08/07/2011 04/10/2012 Rh negative status during 08/07/2011 04/10/2012 FHx: cleft palate 08/07/2011 07/06/2012 Overview: son with cleft palate Carpal tunnel syndrome on right 01/04/2010 07/12/2011 Acute gastritis without mention of hemorrhage 05/22/19 08 08/28/2011 Abdominal pain, epigastric 05/22/2007 0 07/12/2011 Iron deficiency anemia, unspecified 04/15/2007 07/12/2011 Calculus of gallbladder with other cholecystitis, without mention of obstruction 04/13/2007 07/12/2011 Eating disorder, unspecified 03/27/2007 07/12/2011 Allergy to seafood 12/16/2006 3 Pain in joint, lower leg 11/17/2006 Supervision of other high-ri sk (V23.89) 08/13/2006 01/04/2010 Cough 07/25/2006 07/12/2011 Supervision of other normal 01/21/2006 01/04/2010 Anxiety state, unspecified 04/01/2005 0 07/06/2012 Overview: 05/25/2012She has a history of anxiety attacks since [address] James. documented as of this encounter (statuses as of 05/28/2023) [facility] History of Past illness Narrative* Problem Noted Date Diagnosed Date Resolved Date First trimester bleeding 05/25/2012 Overview: 05/25/2012Patient was seen on April 28 for spotting in . An ultrasound was done May 08 that revealed an intrauterine at 6 weeks and 1 day. She was seen at [facility] emergency room on May 14 for heavy bleeding. She saw Dr. Ro on May 18, and the bleeding has remained red to brown spotting since then. See linked visit in epic. Patient denies any pain. Nausea and vomiting in 05/25/2012 07/06/2012 Overview: 05/25/2012Patient is requesting medication to treat nausea. Discussed nausea vomiting in . Patient is to call/come in if she is unable to keep any food or fluids down in a 24-hour period. Phenergan prescription given to patient by Dr. Murphy. History of labor 05/25/2012 Overview: 05/25/2012 Pt has a history of labor with her first child and last child beginning at 32 weeks. She was treated at [facility] with Mag Sulfate. She went on to deliver both children at term. She denies any labor with her 2 other pregnancies. Signs and symptoms of PTL discussed and the importance of going to the hospital at onset of PTL should it occur. Rh negative status during 05/25/2012 06/12/2017 Overview: 05/25/2012Pt is RH negative. She is a Rhogam candidate. History of hemorr denice, currently 05/25/2012 06/12/2017 Overview: 05/25/2012Patient states she had hemorrhage with her last delivery. GBS (group B streptococcus) UTI complicating 10/18/2011 04/10/2012 Supervision of other normal 08/07/2011 04/10/2012 Rh negative status during 08/07/2011 04/10/2012 FHx: cleft palate 08/07/2011 07/06/2012 Overview: son with cleft palate Carpal tunnel syndrome on right 01/04/2010 07/12/2011 Acute gastritis without mention of hemorrhage 05/22/19 08 08/28/2011 Abdominal pain, epigastric 05/22/2007 0 07/12/2011 Iron deficiency anemia, unspecified 04/15/2007 07/12/2011 Calculus of gallbladder with other cholecystitis, without mention of obstruction 04/13/2007 07/12/2011 Eating disorder, unspecified 03/27/2007 07/12/2011 Allergy to seafood 12/16/2006 3 Pain in joint, lower leg 11/17/2006 Supervision of other high-ri sk (V23.89) 08/13/2006 01/04/2010 Cough 07/25/2006 07/12/2011 Supervision of other normal 01/21/2006 01/04/2010 Anxiety state, unspecified 04/01/2005 0 07/06/2012 Overview: 05/25/2012Shsimone has a history of anxiety attacks since [address] James. documented as of this encounter (statuses as of 07/08/2023) [facility] August 29, 2022 8:07am Note Date/Time August 29, 2022 8:06a m [facility] Medical Records Department [address] [place] [address] Instructions for Home/Discharge Instructions 08/29/22804 MR#: [id number] Acct: [id number] Name: JACLYN MAE Rep #:[id number] : 1980 41 From: Rosemarie Deleon PCP: Dr. Michael Aguirre DO Status:REG SDC Discharge Instructions Diet Discharge Diet: No restrictions Activity Discharge Activity: Return to Normal Activity Dressing / Incision Call your doctor if your incision/area has: Continuous Slow Oozing and Sudden Increased Bleeding Call your doctor if you observe: Fever of 101 or Higher, Inability to urinate and Inability to have a bowel movement Follow Up Care Please Follow Up With: Rosemarie Chahal MD When: Call the office for appointment Test Results: Test results from this visit will be discussed in further detail at your follow- up appointment, if applicable. Discharge Plan Admission Attending Provider: Rosemarie Chahal Primary Care Provider: Michael Aguirre Discharge Orders/Prescriptions Prescriptions: Continued citalopram 40 mg tablet 40 mg PO DAILY Qty: 90 3RF albuterol sulfate 90 mcg/actuation HFA aerosol inhaler 2 puff INHALATION Q4H PRN (Reason: shortness of breath or wheezing) Qty: 1 3RF Rx Instructions: administer with spacer budesonide-formoterol [Symbicort] 160-4.5 mcg/actuation HFA aerosol inhaler 2 puff inhalation BID Qty: 10.2 6RF fluticasone propionate 50 mcg/actuation spray,suspension 2 spray intranasal DAILY Qty: 16 3RF Spiriva Respimat 1.25 mcg/actuation mist 2 puff inhalation DAILY Qty: 4 6RF cetirizine 10 mg capsule 10 mg PO HS Qty: 90 3RF pantoprazole 40 mg Tablet,Delayed Release (Dr/Ec) 40 mg PO DAILY levothyroxine 75 mcg tablet 75 mcg PO DAILY Qty: 90 1RF Referrals / Follow Up: Michael Aguirre DO [Primary Care Provider] - Disposition Disposition (needs filled in before D/C Order can be placed): Home, Self Care 08/29/22 0807<Electronically signed by Rosemarie Chahal MD>Rosemarie Chahal MD CC: Dr. Michael Aguirre, DO ~ Signed [facility] Work Phone: evaluation note* Diagnosis Pharyngitis, unspecified etiology- Primary Viral illness Unspecified viral infection, in conditions classified elsewhere and of unspecified site documented in this encounter [facility] note* Diagnosis Unspecified fracture of right toe(s), initial encounter for closed fracture- Primary Toe injury, right, initial encounter documented in this encounter [facility] note* Diagnosis Onset Date Resolution Status Asthma chronic [facility] Work Phone: evaluation note* Diagnosis Onset Date Resolution Status Asthma chronic BMI 33.0-33.9,adult acute Enlarged thyroid acute Hair loss acute Irregular menses acute SKYE (stress urinary incontinence, female) acute Urinary urgency acute Anxiety and depression chron ic Encounter for routine gynecological examination noneactive [facility] Work Phone: evaluation note* Diagnosis Onset Date Resolution Status BMI 33.0-33.9,adult acute Enlarged thyroid acute Hair loss acute Irregular menses acute SKYE (stress urinary incontinence, female) acute Urinary urgency acute Anxiety and depression chron ic Encounter for routine gynecological examination noneactive [facility] Work Phone: evaluation noteNo assessment information available [facility] Work Phone: evaluation note* Diagnosis URI, acute- Primary Acute upper respiratory infections of unspecified site Acute cough documented in this encounter [facility] note* Diagnosis Urinary frequency- Primary Wheezing documented in this encounter [facility] note* Diagnosis Onset Date Resolution Status GERD (gastroesophageal reflux disease) acute Obesity acute Asthma chronic Dysuria acute Enlarged thyroid acute Recurrent vaginitis acute BMI 33.0-33.9,adult acute P-ANCA titer positive acute Asthma chronic Abnormal results of thyroid function studies acute Prediabetes acute Thyroid nodule acute [facility] Work Phone: Evaluation note* Diagnosis Onset Date Resolution Status UTI (urinary tract infection) noneactive Encounter for routine gynecological examination noneactive [facility] Work Phone: Evaluation note* Diagnosis Onset Date Resolution Status UTI (urinary tract infection) noneactive Encounter for routine gynecological examination noneactive P-ANCA titer positive acute Asthma chronic [facility] Work Phone: Evaluation note* Diagnosis Pain with urination- Primary Renal colic Injury of right middle finger, initial encounter [facility] Injury of finger of right hand, subsequent encounter- Primary [facility] Diagnosis Injury of right middle finger, initial encounter- Primary [facility] Diagnosis Onset Date Resolution Status P-ANCA titer positive acute Asthma chronic BMI 26.0-26.9,adult acute Obesity acute Prediabetes acute Anxiety and depression chron ic [facility] Work Phone: Evaluation note* Diagnosis Urinary frequency- Primary [facility] Diagnosis Mouth pain- Primary Other and unspecified diseases of the oral soft tissues [facility]* Diagnosis URI, acute- Primary Acute upper respiratory infections of unspecified site [facility] Diagnosis Onset Date Resolution Status BMI 25.0-25.9,adult acute GERD (gastroesophageal reflux disease) acute Obesity acute Prediabetes acute SKYE (stress urinary incontinence, female) acute Anxiety and depression chron ic Asthma chronic P-ANCA titer positive chroni c BMI 25.0-25.9,adult acute Obesity acute Obesity acute Prediabetes acute Anxiety and depression chron ic BMI 26.0-26.9,adult resolved [facility] Work Phone: Evaluation note* Diagnosis Cellulitis of skin- Primary Cellulitis and abscess of unspecified site [facility]* Diagnosis Injury of right middle finger, initial encounter [facility] Diagnosis Injury of finger of right hand, subsequent encounter [facility]* Diagnosis Urinary frequency- Primary [facility] Diagnosis Pain, dental- Primary Unspecified disorder of the teeth and supporting structures [facility] Diagnosis Acute conjunctivitis of left eye, unspecified acute conjunctivitis type- Primary Dental infection Acute apical periodontitis of pulpal origin [facility] Additional Instructions Please continue to take your inhalers. Use Tylenol, ibuprofen for any pain or fevers.[facility] Work Phone: Hospital Discharge instructions Additional Instructions Contact Dr. Nix's office regarding possibility of him writing a prescription for air conditioner unit since you have history of asthma and air quality has been poor with high humidity.[facility] Work Phone: Reason for referral (narrative)* Diagnostic Procedure Only (Urgent) - Closed Specialty Diagnoses / Procedures Referred By Contac t Referred To Contact XR IMAGING Diagnoses Toe injury, right, initial encounter Procedures XR TOE AP/LAT/OBL RIGHT RADEX TOE MINIMUM 2 VIEWS Reggie Alvarez APRN.[employer] [address] [place] [address] Xr Imaging Referral ID Status Reason Start Date Expiration Date V isits Requested Visits Authorized [id number] Closed Auto-Generate d Referral 07/12/2021 08/11/2022 1 1 [facility] for referral (narrative)* Diagnostic Procedure Only (Urgent) - Closed Specialty Diagnoses / Procedures Referred By Contac t Referred To Contact XR IMAGING Diagnoses Injury of finger of right hand, subsequent encounter Procedures XR DIGIT GENERAL 3V FRONTAL/LAT/OBL RIGHT RADEX FINGR MINIMUM 2 VIEWS Angela Matute PA-C [address] [place] [address] [place] [address] Referral ID Status Reason Start Date Expiration Date V isits Requested Visits Authorized [id number] Closed Auto-Generate d Referral 11/28/2022 12/28/2023 1 1 [facility] for referral (narrative)* Diagnostic Procedure Only (Urgent) - Closed Specialty Diagnoses / Procedures Referred By Contac t Referred To Contact XR IMAGING Diagnoses Injury of right middle finger, initial encounter Procedures XR DIGIT GENERAL 3V FRONTAL/LAT/OBL RIGHT RADEX FINGR MINIMUM 2 VIEWS Adwoa Martines, MORNING BABYSITTER.[employer] [address] [place] [address] [place] [address] Referral ID Status Reason Start Date Expiration Date V isits Requested Visits Authorized [id number] Closed Auto-Generate d Referral 11/18/2022 12/18/2023 1 1 [facility] for referral (narrative)* Diagnostic Procedure Only (Urgent) - Closed Specialty Diagnoses / Procedures Referred By Contac t Referred To Contact XR IMAGING Diagnoses Injury of finger of right hand, subsequent encounter Procedures XR DIGIT GENERAL 3V FRONTAL/LAT/OBL RIGHT RADEX FINGR MINIMUM 2 VIEWS Angela Matute PA-C [address] [place] [address] [place] [address] Referral ID Status Reason Start Date Expiration Date V isits Requested Visits Authorized [id number] Closed Auto-Generate d Referral 11/28/2022 12/28/2023 1 1 [facility] for referral (narrative)No reason for referral information availableWBl[facility]: Reason for visit Narrative* Diagnostic Procedure Only (Urgent) - Closed Specialty Diagnoses / Procedures Referred By Contac t Referred To Contact XR IMAGING Diagnoses Injury of right middle finger, initial encounter Procedures XR DIGIT GENERAL 3V FRONTAL/LAT/OBL RIGHT RADEX FINGR MINIMUM 2 VIEWS Adwoa Martines, MORNING BABYSITTER.[employer]IVER [address] [place] [address] [place] [address] Referral ID Status Reason Start Date Expiration Date V isits Requested Visits Authorized [id number] Closed Auto-Generate d Referral 11/18/2022 12/18/2023 1 1 [facility] for visit Narrative* Diagnostic Procedure Only (Urgent) - Closed Specialty Diagnoses / Procedures Referred By Contac t Referred To Contact XR IMAGING Diagnoses Injury of finger of right hand, subsequent encounter Procedures XR DIGIT GENERAL 3V FRONTAL/LAT/OBL RIGHT RADEX FINGR MINIMUM 2 VIEWS Angela Matute PA-C [address] [place] [address] [place] [address] Referral ID Status Reason Start Date Expiration Date V isits Requested Visits Authorized [id number] Closed Auto-Generate d Referral 11/28/2022 12/28/2023 1 1 [facility] Diagnostic Procedure Only (Urgent) - Closed Specialty Diagnoses / Procedures Referred By Contac t Referred To Contact XR IMAGING Diagnoses Toe injury, right, initial encounter Procedures XR TOE AP/LAT/OBL RIGHT RADEX TOE MINIMUM 2 VIEWS Reggie Alvarez APRN.CNP [address] [place] [address] [place] [address] Referral ID Status Reason Start Date Expiration Date V isits Requested Visits Authorized [id number] Closed Auto-Generate d Referral 07/12/2021 08/11/2022 1 1 [facility] Advance Directives Documents on File Type Date Recorded Patient Channeler Outsole Expl anation Advance Directive(s) 06/17/2017 9:09 AM Documents on File Type Date Recorded Patient Channeler Outsole Expl anation Advance Directive(s) 06/17/2017 9:09 AM Advance Directive Response Recorded Date/ Time Advance Directives No April 1:03pm Living Will No December 13, 2020 2:00pm Power of Forensic Investigator No November 2:00pm Advance Directive Response Recorded Date/ Time Advance Directives No April 1:03pm Living Will No December 22 10:12pm Power of Forensic Investigator No December 22 10:12pm Advance Directive Response Recorded Date/ Time Name of Medical Power of Forensic Investigator clare man December 28, 2021 1:40pm Advance Directives No April 1:03pm Living Will Yes December 28 1:40pm Power of Forensic Investigator Yes December 28 1:40pm Advance Directive Response Recorded Date/ Time Name of Medical Power of Forensic Investigator clare man December 28, 2021 12:40pm Advance Directives No April 12:03pm Living Will No March 07 022 3:46pm Power of Forensic Investigator No March 07, 2022 3:46pm Advance Directive Response Recorded Date/ Time Advance Directives No April 11, 2022 8:37am Living Will No April 11 8:37am Power of Forensic Investigator No April 11, 2022 8:37am Advance Directive Response Recorded Date/ Time Advance Directives No April 11, 2022 9:37am Living Will No August 26, 2022 3 :06pm Power of Forensic Investigator No August 26, 2022 3:06pm Advance Directive Response Recorded Date/ Time Name of Medical Power of Forensic Investigator madelaine guzman r October 07, 2022 11:16pm Advance Directives No April 11, 2022 9:37am Living Will No October 07, 2022 11:16pm Power of Forensic Investigator Yes October 07 11:16pm Advance Directive Response Recorded Date/ Time Name of Medical Power of Forensic Investigator madelaine guzman r October 07, 2022 11:16pm Advance Directives No January 03, 2023 9:14am Living Will No January 03 9:14am Power of Forensic Investigator Yes January 03, 2023 9:14am Advance Directive Response Recorded Date/ Time Advance Directives No January 03, 2023 9:14am Living Will No January 03 9:14am Power of Forensic Investigator Yes January 03, 2023 9:14am Advance Directive Response Recorded Date/ Time Advance Directives No February 4:11pm Advance Directive Response Recorded Date/ Time Do you have a Healthcare Power of Forensic Investigator? 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) Unspecified asthma, uncomplicated DYSPHONIA, GERD, ASTHMA DYSPHONIA, GERD, ASTHMA Reason for Visit BMI 33.0-33.9,adult Enlarged thyroid Hair loss Irregular menses SKYE (stress urinary incontinence, female) Urinary urgency Anxiety and depression Encounter for routine gynecological examination Chief Complaint Unspecified asthma, uncomplicated DYSPHONIA, GERD, ASTHMA DYSPHONIA, GERD, ASTHMA COVID TEST/WC EMP DENTAL Chief Complaint Unspecified asthma, uncomplicated DYSPHONIA, GERD, ASTHMA DYSPHONIA, GERD, ASTHMA COVID TEST/WC EMP DENTAL sob, congestion, cough Chief Complaint COVID TEST/WC EMP DENTAL sob, congestion, cough chest pain Chief Complaint chest pain 2 M FU CONCERN FOR UT I yeast/bv? 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) SCREENING URETHRAL DILATION 4 M FU Reason for Visit UTI (urinary tract i nfection) Encounter for routine gynecological examination P-ANCA titer positive Asthma Chief Complaint 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) SCREENING URETHRAL DILATION 4 M FU cough, asthma Reason for Visit UTI (urinary tract i nfection) Encounter for routine gynecological examination P-ANCA titer positive Asthma Chief Complaint 4 M FU cough, asthma weight management consult Reason for Visit P-ANCA titer positiv e Asthma BMI 26.0-26.9,adult Obesity Prediabetes Anxiety and depression Chief Complaint 1 M FU 6 M FU 1 M FU 1 M FU Cough Reason for Visit BMI 25.0-25.9,adult GERD (gastroesophageal reflux disease) Obesity Prediabetes SKYE (stress urinary incontinence, female) Anxiety and depression Asthma P-ANCA titer positive BMI 25.0-25.9,adult Obesity Obesity Prediabetes Anxiety and depression BMI 26.0-26.9,adult Chief Complaint Admit Date 3 M FU April 28, 2024 2 :22pm E-ORDER April 29, 2024 4 :06pm INT ORDER May 29, 2024 11:4 9am Reason for Visit Admit Date Obesity April 28, 2024 2 :22pm Prediabetes April 28, 2024 2 :22pm SKYE (stress urinary incontinence, female ) April 28, 2024 2:22pm Anxiety and depression April 28 2:22pm Chief Complaint Admit Date INT ORDER May 29, 2024 11:4 9am WM NV per CB June 30, 2024 2:33 pm MENTAL HEALTH September 02, 2024 2:17 pm Reason for Visit Admit Date GERD (gastroesophageal reflux disease) A pril 2024 2:33pm Obesity June 30, 2024 2:33 pm Prediabetes June 30, 2024 2:33 pm Chief Complaint Admit Date WM NV per CB June 30, 2024 2:33 pm MENTAL HEALTH September 02, 2024 2:17 pm WM F/U September 28, 2024 2:19p m Reason for Visit Admit Date GERD (gastroesophageal reflux disease) A pril 2024 2:33pm Obesity June 30, 2024 2:33 pm Prediabetes June 30, 2024 2:33 pm Obesity September 28, 2024 2:19p m Prediabetes September 28, 2024 2:19p m SKYE (stress urinary incontinence, female ) September 28, 2024 2:19pm Anxiety and depression September 28, 2024 2: 19pm Chief Complaint Admit Date WM NV per CB June 30, 2024 2:33 pm MENTAL HEALTH September 02, 2024 2:17 pm WM F/U September 28, 2024 2:19p m 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) October 20, 2024 2:54 pm Reason for Visit Admit Date GERD (gastroesophageal reflux disease) A pril 2024 2:33pm Obesity June 30, 2024 2:33 pm Prediabetes June 30, 2024 2:33 pm Obesity September 28, 2024 2:19p m Prediabetes September 28, 2024 2:19p m SKYE (stress urinary incontinence, female ) September 28, 2024 2:19pm Anxiety and depression September 28, 2024 2: 19pm Encounter for routine gynecological exam ination October 20, 2024 2:54pm Family History Relationship Condition Age at Onset Recorded Date/T salome mother Cervical intraepithe lial neoplasia grade III with severe dysplasia Unknown Relationship Condition Age at Onset Recorded Date/T salome Not Specified Kidney disorder Unknown Cerebrovascular accident (CVA) Unknown mother Cervical intraepithe lial neoplasia grade III with severe dysplasia Unknown Diabetes mellitus Unknown Disorder of thyroid Unknown grandmother Diabetes mellitus Unknown Health Concerns Infection Onset Date Last Indicated Resolved Time COVID-19 Rule-Out 02/11/2022 02/11/2022 Reason for Referral Specialty Diagnoses / Procedures Referred By Contac t Referred To Contact Diagnoses Wheezing Adwoa Martines APRN.[employer] [address] [place] [address] Referral ID Status Reason Start Date Expiration Date Visits Re quested Visits Authorized [id number] Closed 1 1 Specialty Diagnoses / Procedures Referred By Contac t Referred To Contact Orthopedics Diagnoses Injury of right middle finger, initial encounter Procedures CONSULT PANEL TO ORTHOPAEDICS OFFICE/OUTPATIENT [facility] HIGH MDM 60-74 MINUTES Adwoa Martines APRN.[employer] [address] [place] [address] Referral ID Status Reason Start Date Expiration Date Visits Requested Visits Authorized [id number] Authorized PCP Requested Referral 11/18/2022 11/18/2023 1 1 Specialty Diagnoses / Procedures Referred By Contac t Referred To Contact XR IMAGING Diagnoses Injury of right middle finger, initial encounter Procedures XR DIGIT GENERAL 3V FRONTAL/LAT/OBL RIGHT RADEX FINGR MINIMUM 2 VIEWS Adwoa Martines APRN.[employer] [address] [place] [address] [place] [id number] Referral ID Status Reason Start Date Expiration Date V isits Requested Visits Authorized [id number] Closed Auto-Generate d Referral 11/18/2022 12/18/2023 1 1 Summary Purpose Additional Source Comments Source Comments (unrecognize d section and content) In the event this informatio n is protected by the Federal Confidentiality of Alcohol and Drug Abuse Patient Records regulations: The Federal rules restrict any use of the information to criminally investigate or prosecute any alcohol or drug abuse patient.[facility] the event this information is protected by the Federal Confidentiality of Alcohol and Drug Abuse Patient Records regulations: The Federal rules restrict any use of the information to criminally investigate or prosecute any alcohol or drug abuse patient.[facility] the event this information is protected by the Federal Confidentiality of Alcohol and Drug Abuse Patient Records regulations: The Federal rules restrict any use of the information to criminally investigate or prosecute any alcohol or drug abuse patient.[facility] the event this information is protected by the Federal Confidentiality of Alcohol and Drug Abuse Patient Records regulations: The Federal rules restrict any use of the information to criminally investigate or prosecute any alcohol or drug abuse patient.[facility] the event this information is protected by the Federal Confidentiality of Alcohol and Drug Abuse Patient Records regulations: The Federal rules restrict any use of the information to criminally investigate or prosecute any alcohol or drug abuse patient.[facility] the event this information is protected by the Federal Confidentiality of Alcohol and Drug Abuse Patient Records regulations: The Federal rules restrict any use of the information to criminally investigate or prosecute any alcohol or drug abuse patient.[facility] the event this information is protected by the Federal Confidentiality of Alcohol and Drug Abuse Patient Records regulations: The Federal rules restrict any use of the information to criminally investigate or prosecute any alcohol or drug abuse patient.[facility] the event this information is protected by the Federal Confidentiality of Alcohol and Drug Abuse Patient Records regulations: The Federal rules restrict any use of the information to criminally investigate or prosecute any alcohol or drug abuse patient.[facility] the event this information is protected by the Federal Confidentiality of Alcohol and Drug Abuse Patient Records regulations: The Federal rules restrict any use of the information to criminally investigate or prosecute any alcohol or drug abuse patient.[facility] the event this information is protected by the Federal Confidentiality of Alcohol and Drug Abuse Patient Records regulations: The Federal rules restrict any use of the information to criminally investigate or prosecute any alcohol or drug abuse patient.[facility] the event this information is protected by the Federal Confidentiality of Alcohol and Drug Abuse Patient Records regulations: The Federal rules restrict any use of the information to criminally investigate or prosecute any alcohol or drug abuse patient.[facility] the event this information is protected by the Federal Confidentiality of Alcohol and Drug Abuse Patient Records regulations: The Federal rules restrict any use of the information to criminally investigate or prosecute any alcohol or drug abuse patient.[facility] the event this information is protected by the Federal Confidentiality of Alcohol and Drug Abuse Patient Records regulations: The Federal rules restrict any use of the information to criminally investigate or prosecute any alcohol or drug abuse patient.[facility] the event this information is protected by the Federal Confidentiality of Alcohol and Drug Abuse Patient Records regulations: The Federal rules restrict any use of the information to criminally investigate or prosecute any alcohol or drug abuse patient.[facility] the event this information is protected by the Federal Confidentiality of Alcohol and Drug Abuse Patient Records regulations: The Federal rules restrict any use of the information to criminally investigate or prosecute any alcohol or drug abuse patient.[facility] the event this information is protected by the Federal Confidentiality of Alcohol and Drug Abuse Patient Records regulations: The Federal rules restrict any use of the information to criminally investigate or prosecute any alcohol or drug abuse patient.[facility] the event this information is protected by the Federal Confidentiality of Alcohol and Drug Abuse Patient Records regulations: The Federal rules restrict any use of the information to criminally investigate or prosecute any alcohol or drug abuse patient.[facility] the event this information is protected by the Federal Confidentiality of Alcohol and Drug Abuse Patient Records regulations: The Federal rules restrict any use of the information to criminally investigate or prosecute any alcohol or drug abuse patient.[facility] Hospital[facility] the event this information is protected by the Federal Confidentiality of Alcohol and Drug Abuse Patient Records regulations: The Federal rules restrict any use of the information to criminally investigate or prosecute any alcohol or drug abuse patient.[facility]In the event this information is protected by the Federal Confidentiality of Alcohol and Drug Abuse Patient Records regulations: The Federal rules restrict any use of the information to criminally investigate or prosecute any alcohol or drug abuse patient.[facility] the event this information is protected by the Federal Confidentiality of Alcohol and Drug Abuse Patient Records regulations: The Federal rules restrict any use of the information to criminally investigate or prosecute any alcohol or drug abuse patient.[facility] the event this information is protected by the Federal Confidentiality of Alcohol and Drug Abuse Patient Records regulations: The Federal rules restrict any use of the information to criminally investigate or prosecute any alcohol or drug abuse patient.[facility] Reason for Visit (unrecogniz ed section and content) Reason Comments Sore Throat pain rated 7 on pain scale x3 days Headache pain rated 4, c/o na usea Reason Comments Pain (RT) foot injury too k place at home x2 wks prior, pain rated 5 Reason Comments Cough Chest congestion, wh eezing x6 days Specialty Diagnoses / Procedures Referred By Cornel vega Referred To Contact [facility] / [facility] Diagnoses cough, congestion x6 days Procedures NEW SAME DAY [facility] [address] [place] [address] Referral ID Status Reason Start Date Expiration Date V isits Requested Visits Authorized [id number] Outside PCP 02/11/2022 04/12/2022 1 1 Reason Comments UTI Recently treated for E Coli x macrobid @ [facility] EC Cough Chest congestion x6 weeks intermittent Reason Comments Results Reason Comments Trauma Right hand middle fi nger injury x 1 dayUti, painful urination x 2 days Reason Comments No Show Reason Comments Finger Pain R hand middle finger x1.5 weeks, still swollen and red Reason Comments Right middle finger injury REF: [facility] x-ray: 11/18/2022 & Specialty Diagnoses / Procedures Referred By Cornel vega Referred To Contact Orthopedics Diagnoses Injury of right middle finger, initial encounter Procedures CONSULT PANEL TO ORTHOPAEDICS OFFICE/OUTPATIENT NEW HIGH MDM 60-74 MINUTES Adwoa Martines APRN.[employer] [address] [place] [address] Referral ID Status Reason Start Date Expiration Date V isits Requested Visits Authorized [id number] Closed PCP Requested Referral 11/18/2022 11/18/2023 1 1 Reason Comments Urinary Frequency x 1 day Reason Comments Mouth/Lip Problem Possible thrush x2 d ays Reason Comments Cough x 2 days Reason Comments Ear Problem right ear ? insect b ite x 2 weeks, ear now muffled Reason Comments Urinary Frequency Frequency and urgenc y x 4 days Reason Comments Dental Problem upper left tooth kailyn n x 3 days Reason Comments Eye Problem Left eye irritation x 1 day and tooth pain x 2 weeks Care Teams (unrecognized sec tion and content) Commercial Fisher Relationship Specialty Start Date End Date Michael Aguirre PCP - General Family Practice 04/29/17 Commercial Fisher Relationship Specialty Start Date End Date Michael Aguirre PCP - General Family Practice 04/29/17 Commercial Fisher Relationship Specialty Start Date End Date Michael Aguirre PCP - General Family Medicine 04/29/17 Commercial Fisher Relationship Specialty Start Date End Date Michael Aguirre DO PCP - General Family Medicine 04/29/17 Commercial Fisher Relationship Specialty Start Date End Date Michael Aguirre DO PCP - General Family Medicine 04/29/17 Team Status: Active Member Role Status Dates Dr. Michael Aguirre DO Family Provider Active Dr. Michael Aguirre , DO Primary Care Provider Active Team Status: Inactive Member Role Status Dates Dr. Michael Aguirre , DO Primary Care Provider, Referri ng Provider Active Dr. Nicola Nix , Attending Provider Active Team Status: Inactive Member Role Status Dates Dr. Michael Aguirre DO Primary Care Provider, Referri ng Provider Active Dr. Hector Alvarez MD Attending Provider Active Team Status: Inactive Member Role Status Dates Dr. Michael Aguirre , DO Primary Care Provider, Referri ng Provider Active Terri Mazariegos QUANTITATIVE CONSULTANT, QUANTITATIVE CONSULTANT-C Attending Provider Active Team Status: Inactive Member Role Status Dates Dr. Michael Aguirre DO Primary Care Provider, Referri ng Provider Active Valerie Giraldo QUANTITATIVE CONSULTANT, QUANTITATIVE CONSULTANT-C Attending Provider Active Team Status: Inactive Member Role Status Dates Dr. Michael Aguirre DO Primary Care Provider, Referri ng Provider Active Francisco Rogel PA, PA Attending Provider Active Team Status: Inactive Member Role Status Dates Dr. Michael Aguirre DO Primary Care Provider Active Dr. Liat Ryan , DO Attending Provider, Emergency P rovider Active Team Status: Inactive Member Role Status Dates Dr. Michael Aguirre DO Primary Care Provider Active Dr. Nicola Nix , DO Attending Provider, Referring Pro vider Active Team Status: Inactive Member Role Status Dates Dr. Michael Aguirre DO Primary Care Provider Active Valerie Giraldo QUANTITATIVE CONSULTANT, QUANTITATIVE CONSULTANT-C Attending Provider, Referring Provider Active Team Status: Inactive Member Role Status Dates Dr. Michael Aguirre DO Primary Care Provider Active Dr. Rosemarie Chahal MD Attending Provider, Referring P rovider Active Team Status: Active Member Role Status Dates Dr. Michael Aguirre DO Primary Care Provider Active Dr. Hector Alvarez MD Attending Provider, Referring Provi marcia Active Valerie Giraldo QUANTITATIVE CONSULTANT, QUANTITATIVE CONSULTANT-C Other Provider Active Team Status: Active Member Role Status Dates Dr. Michael Aguirre DO Primary Care Provider Active Valerie Giraldo QUANTITATIVE CONSULTANT, QUANTITATIVE CONSULTANT-C Attending Provider, Referring Provider Active Team Status: Inactive Member Role Status Dates Dr. Michael Aguirre DO Primary Care Provider Active Terri Mazariegos QUANTITATIVE CONSULTANT, QUANTITATIVE CONSULTANT-C Attending Provider, Referrin g Provider Active Dr. Hector Alvarez MD Other Provider Active Team Status: Inactive Member Role Status Dates Dr. Michael Aguirre DO Primary Care Provider Active Dr. Jamaal De La Rosa MD Emergency Provider Active Team Status: Inactive Member Role Status Dates Dr. Michael Aguirre DO Primary Care Provider Active Dr. Hector Alvarez MD Attending Provider, Referring Provi marcia Active Valerie Giraldo QUANTITATIVE CONSULTANT, QUANTITATIVE CONSULTANT-C Other Provider Active Commercial Fisher Relationship Specialty Start Date End Date Michael Aguirre DO PCP - General Family Medicine 04/29/17 Commercial Fisher Relationship Specialty Start Date End Date Carla Michael LugoDO PCP - General Family Medicine 04/29/17 Commercial Fisher Relationship Specialty Start Date End Date Carla Michael LugoDO PCP - General Family Medicine 04/29/17 Commercial Fisher Relationship Specialty Start Date End Date Michael Aguirre DO PCP - General Family Medicine 04/29/17 Team Status: Inactive Member Role Status Dates Dr. Michael Aguirre DO Primary Care Provider, Referri ng Provider Active Dr. Janine Koch MD Attending Provider Active Team Status: Inactive Member Role Status Dates Dr. Michael Aguirre DO Primary Care Provider Active Dr. Janine Koch MD Attending Provider Active Team Status: Inactive Member Role Status Dates Dr. Michael Aguirre DO Primary Care Provider Active Dr. Jamaal De La Rosa MD Attending Provider, Emergency Provi marcia Active Commercial Fisher Relationship Specialty Start Date End Date Michael Aguirre DO PCP - General Family Medicine 04/29/17 Commercial Fisher Relationship Specialty Start Date End Date Michael Aguirre DO PCP - General Family Medicine 04/29/17 Commercial Fisher Relationship Specialty Start Date End Date Michael Aguirre DO PCP - General Family Medicine 04/29/17 Commercial Fisher Relationship Specialty Start Date End Date Michael Aguirre DO PCP - General Family Medicine 04/29/17 Team Status: Inactive Member Role Status Dates Dr. Michael Aguirre DO Primary Care Provider Active Terri Mazariegos QUANTITATIVE CONSULTANT, QUANTITATIVE CONSULTANT-C Attending Provider, Referrin g Provider Active Team Status: Inactive Member Role Status Dates Dr. Michael Aguirre DO Primary Care Provider Active Dr. Gregorio Ramos MD Attending Provider, Referring Pr ranulfo Active Commercial Fisher Relationship Specialty Start Date End Date Michael Aguirre DO PCP - General Family Medicine 04/29/17 Commercial Fisher Relationship Specialty Start Date End Date Michael Aguirre DO PCP - General Family Medicine 04/29/17 Commercial Fisher Relationship Specialty Start Date End Date Michael Aguirre DO PCP - General Family Medicine 04/29/17 Commercial Fisher Relationship Specialty Start Date End Date Michael Aguirre DO PCP - General Family Medicine 04/29/17 Commercial Fisher Relationship Specialty Start Date End Date Michael Aguirre DO PCP - General Family Medicine 04/29/17 Commercial Fisher Relationship Specialty Start Date End Date Michael Aguirre DO PCP - General Family Medicine 04/29/17 Team Status: Inactive Member Role Status Dates Dr. Michael Aguirre DO Primary Care Provider Active Start: April 07, 2024 End: April 07, 2024 Dr. Jaclyn Martinez DO Attending Provider Activ e Start: April 07, 2024 End: April 07, 2024 Dr. Jaclyn Martinez , DO Referring Provider Activ e Start: April 07, 2024 End: April 07, 2024 Team Status: Inactive Member Role Status Dates Dr. Michael Aguirre DO Primary Care Provider Active Start: April 28, 2024 End: April 28, 2024 Dr. Michael Aguirre DO Referring Provider Active Start: April 28, 2024 End: April 28, 2024 Xochilt Rutherford NP-C Attending Provider Active Start: April 28, 2024 End: April 28, 2024 Team Status: Inactive Member Role Status Dates Dr. Michael Aguirre DO Primary Care Provider Active Start: April 28, 2024 End: April 28, 2024 Xochilt Rutherford NP-C Attending Provider Active Start: April 28, 2024 End: April 28, 2024 Xochilt Rutherford NP-C Referring Provider Active Start: April 28, 2024 End: April 28, 2024 Team Status: Inactive Member Role Status Dates Dr. Michael Aguirre DO Primary Care Provider Active Start: April 29, 2024 End: April 29, 2024 Xochilt Rutherford NP-C Attending Provider Active Start: April 29, 2024 End: April 29, 2024 Xochilt Rutherford NP-C Referring Provider Active Start: April 29, 2024 End: April 29, 2024 Team Status: Inactive Member Role Status Dates Dr. Michael Aguirre DO Primary Care Provider Active Start: May 29, 2024 End: May 29, 2024 Xochilt Rutherford NP-C Attending Provider Active Start: May 29, 2024 End: May 29, 2024 Xochilt Rutherford NP-C Referring Provider Active Start: May 29, 2024 End: May 29, 2024 Team Status: Active Member Role Status Dates No Primary Care Physician Primary Care Provider Active Team Status: Inactive Member Role Status Dates Dr. Michael Aguirre DO Primary Care Provider Active Start: June 30, 2024 End: June 30, 2024 Dr. Michael Aguirre DO Referring Provider Active Start: June 30, 2024 End: June 30, 2024 Xochilt Rutherford NP-C Attending Provider Active Start: June 30, 2024 End: June 30, 2024 Team Status: Inactive Member Role Status Dates Dr. Joaquín Sousa DO Emergency Provider Active S tart: September 02, 2024 End: September 02, 2024 No Primary Care Physician Primary Care Provider Active Start: September 02, 2024 End: September 02, 2024 Team Status: Active Member Role/Relationship Status Dates No Primary Care Physician Primary Care Provider Active Team Status: Inactive Member Role/Relationship Status Dates Dr. Michael Aguirre DO Primary Care Provider Active Start: June 30, 2024 End: June 30, 2024 Dr. Michael Aguirre DO Referring Provider Active Start: June 30, 2024 End: June 30, 2024 SONIYA Zelaya Attending Provider Active Start: June 30, 2024 End: June 30, 2024 Team Status: Inactive Member Role/Relationship Status Dates Dr. Joaquín Sousa DO Attending Provider Active S tart: September 02, 2024 End: September 02, 2024 Dr. Joaquín Sousa DO Emergency Provider Active S tart: September 02, 2024 End: September 02, 2024 No Primary Care Physician Primary Care Provider Active Start: September 02, 2024 End: September 02, 2024 Team Status: Inactive Member Role/Relationship Status Dates No Primary Care Physician Primary Care Provider Active Start: September 28, 2024 End: September 28, 2024 No Primary Care Physician Referring Provider Active Start: September 28, 2024 End: September 28, 2024 SONIYA Zelaya Attending Provider Active Start: September 28, 2024 End: September 28, 2024 Team Status: Inactive Member Role/Relationship Status Dates No Primary Care Physician Primary Care Provider Active Start: September 21, 2024 Dr. Rosemarie Chahal MD Attending Provider Active Start: September 21, 2024 Team Status: Inactive Member Role/Relationship Status Dates No Primary Care Physician Primary Care Provider Active Start: September 28, 2024 End: September 28, 2024 No Primary Care Physician Referring Provider Active Start: September 28, 2024 End: September 28, 2024 SONIYA Zelaya Attending Provider Active Start: September 28, 2024 End: September 28, 2024 Team Status: Inactive Member Role/Relationship Status Dates No Primary Care Physician Primary Care Provider Active Start: October 20, 2024 End: October 20, 2024 No Primary Care Physician Referring Provider Active Start: October 20, 2024 End: October 20, 2024 SONIYA Zelaya Attending Provider Active Start: October 20, 2024 End: October 20, 2024 Goals (unrecognized section and content) Goals may be documented in a n alternate sectionGoals may be documented in an alternate sectionGoals may be documented in an alternate sectionGoals may be documented in an alternate sectionGoals may be documented in an alternate sectionGoals may be documented in an alternate sectionGoals may be documented in an alternate sectionGoals may be documented in an alternate sectionGoals may be documented in an alternate sectionGoals may be documented in an alternate sectionGoals may be documented in an alternate sectionGoals may be documented in an alternate sectionGoals may be documented in an alternate sectionGoals may be documented in an alternate sectionGoals may be documented in an alternate section INFORMATION SOURCE (unrecogn ized section and content) DATE CREATED AUTHOR 11/27/2022 [facility] DATE CREATED AUTHOR AUTHOR'S ORGANIZ ATION 06/26/2024 [facility] DATE CREATED AUTHOR AUTHOR'S ORGANIZ ATION 10/14/2024 [facility] FOR RECORDS PERTAINING TO PATIENTS WHO ARE OR HAVE BEEN ENROLLED IN A CHEMICAL DEPENDENCY/SUBSTANCEABUSE PROGRAM, SOME INFORMATION MAY BE OMITTED. This clinical summary was aggregated from multiple sources. Caution should be exercised in using it in the provision of clinical care. This summary normalizes information from multiple sources, and as a consequence, information in this document may materially change the coding, format and clinical context of patient data. In addition, data may be omitted in some cases. CLINICAL DECISIONS SHOULD BE BASED ON THE PRIMARY CLINICAL RECORDS. [employer] provides no warranty or guarantee of the accuracy or completeness of information in this document.
== END | disposition home or self-care (01) ==
LOC: OPBI 15:33
PROVIDERS: Referring Provider Nurse Practitioner Family; Visit Provider Nurse Practitioner Family
DX: Z12.31 Encounter for screening mammogram for malignant neoplasm of breast (principal)
CPT/HCPCS: 77063; 77067

== ENCOUNTER → 2024-10-20 | Outpatient (CLI) | payer OTHER, MEDICAID, SELFPAY ==
[2024-10-25 09:08] LABS: HPV APTIMA, High Risk Negative (Negative)
== END | disposition home or self-care (01) ==
LOC: LABSPEC 15:56
PROVIDERS: Visit Provider Nurse Practitioner Family
DX: Z12.4 Encounter for screening for malignant neoplasm of cervix (principal)
CPT/HCPCS: 87624; 88175; G0145